=== PATIENT | male | born 1955 | race Caucasian/White ===

== ENCOUNTER 2016-06-07 08:02 | Observation (INO) | payer MEDICARE, OTHER ==
[2016-06-06] MEDS: CINACALCET 30 MG TAB PO SCH (22:31)
[~2016-06-07] VITALS: Ht 170.2 cm; Wt 74.7 kg
[~2016-06-07 08:02] MED LIST: AMLO5TAB4 PO; APR50 PO; ASPI81TA3 PO; ATOR80TA75 PO; BENA20TA65 PO; CALC667C PO; CNC30T PO; FAMO20TA18 PO; GENT5DRO28 LEFT EYE; METO-448 PO; PROM6.25 PO; SEVE800T10 PO; TYL500 PO; UDROBDM PO
[2016-06-07] MEDS ORDERED: ATOR20TA38 PO (10:45)
[2016-06-07] MEDS ORDERED: ZOLP5TAB6 PO (10:50)
[2016-06-07] MEDS ORDERED: NIFE60TA24 PO (10:51)
[2016-06-07 10:59] LABS: BASOPHILS % 0.1 % (0.0-2.0); EOSINOPHILS # 0.1 10^3/ul (0.0-0.5); EOSINOPHILS % 1.6 % (0.0-7.0); HEMATOCRIT 26.4 % (42.0-52.0); HEMOGLOBIN 8.7 g/dl (14.0-18.0); LYMPHOCYTES # 0.8 10^3/ul (0.8-2.9); LYMPHOCYTES % 16.9 % (15.0-51.0); MEAN CORPUSCULAR HEMOGLOBIN 28.1 pg (29.0-33.0); MEAN CORPUSCULAR HGB CONC 32.9 g/dl (32.0-37.0); MEAN CORPUSCULAR VOLUME 85.3 fl (82.0-101.0); MEAN PLATELET VOLUME 8.4 fl (7.4-10.4); MONOCYTE # 0.7 10^3/ul (0.3-0.9); MONOCYTES % 13.7 % (0.0-11.0); NEUTROPHIL # 3.2 10^3/ul (1.6-7.5); NEUTROPHILS % 67.7 % (39.0-77.0); PLATELET COUNT 218 10^3/UL (140-440); RED CELL DISTRIBUTION WIDTH 19.1 % (11.5-14.5); UNCORRECTED WBC 4.8 10^3/ul (4.8-10.8); WHITE BLOOD COUNT 4.8 10^3/ul (4.8-10.8)
[2016-06-07 11:02] LABS: ALBUMIN 4.2 g/dl (3.3-4.9)
[2016-06-07 11:04] LABS: CREATININE 8.26 mg/dl (0.61-1.24)
[2016-06-07 11:05] LABS: ALBUMIN/GLOBULIN RATIO 1.23; BILIRUBIN,INDIRECT 0.1 mg/dl (0-1.1); BILIRUBIN,TOTAL 0.1 mg/dl (0.2-1.3); TOTAL PROTEIN 7.6 g/dl (6.1-8.1)
[2016-06-07 11:08] LABS: CONDITION 1; INR 1.17; LH ANALYZER COMMENTS 1; PT RATIO 1.2
[2016-06-07 11:09] LABS: PARTIAL THROMBOPLASTIN TIME 28.1 Sec (25.0-35.0)
[2016-06-07 11:14] LABS: TROPONIN-I 0.075 ng/ml (0.00-0.12)
[2016-06-07 11:28] LABS: POTASSIUM 6.2 mmol/L (3.5-5.1)
[2016-06-07] MEDS ORDERED: CA GLUCONATE (GM) 10% 10ML INJ IV STA (11:32)
[2016-06-07] MEDS ORDERED: NA POLYST SULFON 15 GM/60 ML BTL PO STA (11:32)
[2016-06-07] MEDS ORDERED: NA BICARBONATE 8.4% 50 ML SYG IV STA (11:32)
--- NOTE | 2016-06-07 11:41 | ERA ---
ER Documentation Chief Complaint Date/Time DATE: 06/07/16 TIME: 11:[address] Chief Complaint [address]ENT BY DR NEWBY FOR BLOOD TRANSFUSION. LOW HEMOGLOBIN, NO BLEEDING NOTED. HPI This is a 60-year-old male who was sent in by his primary care physician, Dr. Newby for evaluation of low hemoglobin. This patient is a dialysis patient on dialysis Friday, Friday, Friday. He is not on a dialysis today. He did have lab work from his dialysis center which stated that he has a hemoglobin of 7.9. This patient was sent in for transfusion. ROS All systems reviewed and are negative except as per history of present illness. Medications Home Meds Active Scripts Sevelamer Hcl* (Renagel*) 800 Mg Tab, 800 MG PO WITH MEALS, #90 Prov:VIV KING 01/20/15 Reported Medications Nifedipine* (Afeditab CR*) 60 Mg Tablet.er, 60 MG PO DAILY, #30 TAB.SA 06/07/16 Zolpidem Tartrate* (Zolpidem Tartrate*) 5 Mg Tablet, 5 MG PO QHS Y for INSOMNIA , #30 TAB 06/07/16 Atorvastatin Calcium* (Atorvastatin Calcium*) 20 Mg Tablet, 20 MG PO QHS, #30 TAB 06/07/16 Calcium Acetate* (Calcium Acetate*) 667 Mg Capsule, 667 MG PO WITH MEALS, #30 CAP 03/12/16 Cinacalcet* (Sensipar*) 30 Mg Tab, 30 MG PO BID, TAB 03/12/16 Discontinued Reported Medications Metoprolol Tartrate* (Lopressor*) 25 Mg Tab, 25 MG PO BID, #60 TAB 04/26/16 Amlodipine Besylate* (Norvasc*) 5 Mg Tablet, 5 MG PO DAILY, TAB 04/26/16 Atorvastatin* (Atorvastatin*) 80 Mg Tablet, 80 MG PO QHS, #30 TAB 04/26/16 Famotidine* (Famotidine*) 20 Mg Tablet, 20 MG PO BID, #60 TAB 03/12/16 Discontinued Scripts Gentamicin Sulfate* (Gentamicin Sulfate* Ophth) 0.3% - 5 Ml Drops, 1 DROP LEFT EYE QID for 6 Days, EA Prov:VIV KING 03/13/16 Acetaminophen* (Tylenol*) 500 Mg Tab, 500 MG PO Q4H Y for MILD PAIN LEVEL 1-3, # 10 TAB Prov:PRATIK PANDA DO 11/06/15 Promethazine w/Codeine* (Phenergan w/Codeine* Syrup) 5 Ml Syrup, 5 ML PO Q4H Y for COUGH for 7 Days, ML Prov:ANTHONY ALBARRAN MD 05/22/15 Guaifenesin-Dextromethorphan* (Robitussin* DM) 100MG/10MG/5ML Syrup, 10 ML PO Q6H Y for COUGH for 7 Days, ML Prov:VIV KING 05/11/15 Hydralazine Hcl* (Hydralazine Hcl*) 50 Mg Tab, 75 MG PO TID for 30 Days, TAB Prov:VIV KING 05/11/15 Benazepril Hcl* (Lotensin*) 20 Mg Tab, 20 MG PO DAILY, #30 Prov:VIV KING 01/20/15 Aspirin (Aspirin) 81 Mg Chew, 81 MG PO DAILY, #30 Prov:CIARA KINGETLANA 01/20/15 Allergies Allergies: Coded Allergies: fluorescein (Verified Allergy, Unknown, 06/07/16) PMhx/Soc History of Surgery: No (AV fistula creation x 2, appendectomy) Anesthesia Reaction: No Hx Neurological Disorder: No Hx Respiratory Disorders: No Hx Cardiac Disorders: No Hx Psychiatric Problems: No Hx Miscellaneous Medical Probl: No Hx Alcohol Use: No Hx Substance Use: No Hx Tobacco Use: No Smoking Status: Never smoker Physical Exam Vitals Vital Signs Date Time Temp Pulse Resp B/P Pulse Ox O2 Delivery O2 Flow Rate FiO2 06/07/16 08:18 98.1 86 21 231/93 98 Physical Exam Const: No acute distress Head: Atraumatic Eyes: Normal Conjunctiva ENT: Normal External Ears, Nose and Mouth. Neck: Full range of motion..~ No meningismus. Resp: Clear to auscultation bilaterally Cardio: Regular rate and rhythm, no murmurs Abd: Soft, non tender, non distended. Normal bowel sounds Skin: Port-A-Cath left anterior chest wall, no petechiae or rashes Back: No midline or flank tenderness Ext: No cyanosis, or edema Neur: Awake and alert Psych: Normal Mood and Affect Result Diagram: 06/07/16 1039 06/07/16 1039 Results 24 hrs Laboratory Tests Test 06/07/16 10:39 Activated Partial Thromboplast Time 28.1Sec Alanine Aminotransferase (ALT/SGPT) 58IU/L Albumin 4.2g/dl Albumin/Globulin Ratio 1.23 Alkaline Phosphatase 180IU/L Anion Gap 26 Aspartate Amino Transf (AST/SGOT) 51IU/L Basophils # 0.010^3/ul Basophils % 0.1% Blood Morphology Comment Blood Urea Nitrogen 66mg/dl Calcium Level 9.0mg/dl Carbon Dioxide Level 27mmol/L Chloride Level 96mmol/L Creatinine 8.26mg/dl Direct Bilirubin 0.00mg/dl Eosinophils # 0.110^3/ul Eosinophils % 1.6% Globulin 3.40g/dl Glucose Level 77mg/dl Hematocrit 26.4% Hemoglobin 8.7g/dl INR International Normalized Ratio 1.17 Indirect Bilirubin 0.1mg/dl Lymphocytes # 0.810^3/ul Lymphocytes % 16.9% Mean Corpuscular Hemoglobin 28.1pg Mean Corpuscular Hemoglobin Concent 32.9g/dl Mean Corpuscular Volume 85.3fl Mean Platelet Volume 8.4fl Monocytes # 0.710^3/ul Monocytes % 13.7% Neutrophils # 3.210^3/ul Neutrophils % 67.7% Nucleated Red Blood Cells # 0.010^3/ul Nucleated Red Blood Cells % 0.0/100WBC Platelet Count 82416^3/UL Potassium Level 6.2mmol/L Prothrombin Time 15.0Sec Prothrombin Time Ratio 1.2 Red Blood Count 3.1010^6/ul Red Cell Distribution Width 19.1% Sodium Level 143mmol/L Total Bilirubin 0.1mg/dl Total Protein 7.6g/dl Troponin I 0.075ng/ml White Blood Count 4.810^3/ul Current Medications Medications (Trade) Dose Ordered Sig/Loy Route PRN Reason Start Time Stop Time Status Last Admin Dose Admin Sodium Polystyrene Sulfonate (Kayexalate) 30 gm ONCE STAT PO 06/07/16 11:32 06/07/16 11:34 DC Sodium Bicarbonate (Na Bicarb 8.4% Syg) 50 ml ONCE STAT IV 06/07/16 11:32 06/07/16 11:34 DC Calcium Gluconate (Ca Gluc) 1 gm ONCE STAT IV 06/07/16 11:32 06/07/16 11:34 DC Procedures/MDM EKG: Rate/Rhythm: [Normal Sinus Rhythm] QRS, ST, T-waves: [No changes consistent w/ acute ischemia] Impression: [No evidence of ischemia or arrhythmia] Chest X-ray 1V Interpreted by me: Soft Tissue: Pulmonary vascular congestion Bones: No acute abnormalities Mediastinum/Cardiac Silhouette/Lungs: [No acute abnormalities] This 60-year-old male presents to the ER for evaluation of low hemoglobin. I did obtain blood work here which shows a hemoglobin of 8.7. I have contacted his primary care physician, Dr. newby who would like this patient transfuse 1 unit of blood despite him having a hemoglobin of 8.7. I spoke to the patient and patient's family were okay with this. The patient has a potassium level 6.2. No EKG changes. The patient was given Kayexalate, calcium gluconate, and bicarbonate. He is not on dialysis today. He will be placed in for admission at this time. Critical Care: Excluding all billable procedures Time: [33] minutes Treatments/Evaluations: Close monitoring and treatment of unstable vital signs, cardiorespiratory, and neurologic status, while maintaining tight balance of fluid, respiratory, and cardiac interventions. Departure Diagnosis: Primary Impression: Normocytic anemia Additional Impressions: Renal failure Hyperkalemia Condition: Stable FROYLAN MILLS DO Jun 07, 2016 11:41
[2016-06-07] MEDS ORDERED: ONDANSETRON 4 MG INJ IV PRN (12:00)
[2016-06-07] MEDS ORDERED: ACETAMINOPHEN 325 MG TAB PO PRN ×2 (12:00→14:00)
--- NOTE | 2016-06-07 12:04 | RADRPT ---
PROCEDURE: XR Chest. CLINICAL INDICATION: Fluid overload TECHNIQUE: Chest AP portable. COMPARISON: 01/09/2016 FINDINGS: Left internal jugular tunnel dialysis catheter. The mediastinal structures are unremarkable. There is calcification of the thoracic aorta (consiste nt with atherosclerosis). There is moderate cardiac enlargement. There is congestive heart failure . There are RLL and LLL patchy consolidations (edema). The pleural spaces are unremarkable. The o sseous structures are unremarkable. IMPRESSION: Moderate cardiac enlargement. Congestive heart failure. RLL and LLL patchy consolidations (edema) RPTAT: HGDB .Eric Maciel MD, Date Time Electronically viewed and signed by .Eric Maciel MD, on 06/07/2016 12:03 .B/
[2016-06-07] MEDS ORDERED: hydrALAzine 20 MG INJ IV ONE (13:00)
[2016-06-07] MEDS ORDERED: DOCUSATE SODIUM 100 MG CAP PO PRN (14:00)
[2016-06-07] MEDS ORDERED: morphine 2 MG INJ IV PRN (14:00)
[2016-06-07] MEDS ORDERED: NACL 0.9% 3 ML SYG IV SCH (14:00)
--- NOTE | 2016-06-07 16:12 | HP ---
DATE OF ADMISSION: 06/07/2016 CHIEF COMPLAINT: Low hemoglobin. HISTORY OF PRESENT ILLNESS: The patient is a 60-year-old gentleman, known to me from previous admis mirza. The patient was sent by his permit specialist, Dr. Newby, due to a low hemoglobin of 7.9, noted at [facility]. The patient usually has dialysis on Friday, Friday, Friday. He did not have dialysis today. The patient denies any nausea or vomiting, denies any fever or chills, denies any chest pain, denies any shortness of breath. Patient is also noted to have hyperkalemia, with a pota ssium of 6.2, and was given Kayexalate in the emergency room. The patient underwent a chest x-ray which revealed moderate cardiac enlargement, congestive heart failure, right lower lobe and left low er lobe patchy consolidations. The patient will be admitted for hemodialysis and blood transfusion. PAST MEDICAL HISTORY: End-stage renal disease, hemodialysis dependent. Stage I diastolic dysfuncti on. Congestive heart failure. Anemia of chronic disease. Left eye blindness. Hypertension. PAST SURGICAL HISTORY: Status post left upper extremity arteriovenous fistula, more than 4 years ag o, currently is nonfunctional, status post new arteriovenous fistula in the left upper extremity. S tatus post left chest Espinoza catheter. FAMILY HISTORY: Noncontributory. SOCIAL HISTORY: The patient lives at home with his . The patient denies any alcohol use. Gadiel es any tobacco use. Denies any illicit drug use. Patient has a history of alcohol use in the past. ALLERGIES: PATIENT IS ALLERGIC TO FLUORESCEIN. HOME MEDICATIONS: 1. Atorvastatin. 2. Calcium acetate. 3. Sensipar. 4. Nifedipine. 5. Renagel. 6. Ambien. REVIEW OF SYSTEMS: A 12-point review of systems is negative unless mentioned in the HPI. PHYSICAL ASSESSMENT GENERAL: Well-developed, well-nourished male, in no acute distress. VITAL SIGNS: Temperature is 98.1, pulse is 86, blood pressure is 231/93, respiratory rate 21, oxyge n saturation is 98% on room air. HEENT: Head is atraumatic, normocephalic. Patient has left eye blindness. Oral mucosa is pink, mo ist. NECK: Supple. No cervical lymphadenopathy. JVD is present. No thyromegaly. CHEST: Lungs are clear bilaterally, slightly diminished at the bases. No wheezes or rales noted. CARDIOVASCULAR: Normal S1, S2. No murmurs, gallops, clicks or rubs noted. ABDOMEN: Protuberant, soft, nondistended, nontender. Bowel sounds present. EXTREMITIES: No edema, clubbing or cyanosis. The patient has a left upper extremity AV fistula whi ch is nonfunctional. Left upper extremity AV fistula with a palpable thrill and audible bruit. The patient also has a left internal jugular tunneled hemodialysis catheter. SKIN: There is no rash or petechiae. NEUROLOGIC: Patient is awake, alert and oriented x4. No focal deficits noted. Motor strength of 5 /5 in all extremities. LABORATORY DATA: On admission, CBC white blood cells 4.8, hemoglobin 8.7, hematocrit 26.4, platelet s 218. Chemistry: Sodium is 143, potassium 6.2, chloride 96, carbon dioxide 27, anion gap 26, BUN is 66, creatinine 8.26, glucose 77. Troponin 0.075. PT is 15.0, INR is 1.18, PTT is 28.1. ASSESSMENT AND PLAN: 1. Anemia, most likely of chronic disease. Will obtain stool for occult blood. Transfuse the karl ent 1 unit of packed red blood cells with hemodialysis. 2. End-stage renal disease, hemodialysis dependent. Dr. Newby will be following the patient in nephr ology consultation. The patient will undergo dialysis today. 3. Hyperkalemia. Status post Kayexalate. The patient will undergo hemodialysis. Continue to [facility] electrolytes. 4. Hypertensive urgency. Will resume the patient's home blood pressure medication. Start hydralaz ine p.r.n. for a systolic blood pressure above 170. Further recommendations based on clinical course. Plan of care discussed with Dr. French. Dictated By: VIV KING BENZENE WASHER for POLY FRENCH MD, SR/ZACK Conf#: [id number] DID#: [id number]
[2016-06-07] MEDS: CALCIUM ACETATE 667 MG CAP PO SCH (18:47)
[2016-06-07] MEDS: NIFEdipine (XL) 60 MG TAB PO SCH (18:48)
[2016-06-07] MEDS: SEVELAMER 800 MG TAB PO SCH (18:48)
[2016-06-07] MEDS: hydrALAzine 20 MG INJ IV PRN (19:28)
[2016-06-07 20:48] VITALS: TEMP 98.5
[2016-06-07 21:50] VITALS: PULSE 75
[2016-06-07] MEDS: ATORVASTATIN 20 MG TAB PO SCH (22:26)
[2016-06-07 22:50] VITALS: Ht 170.2 cm; Wt 74.7 kg
[2016-06-07 22:51] VITALS: BP 167/76; RESP 20
[2016-06-08] VITALS (18 sets, daily range): BP systolic 110–196; BP diastolic 37–84; PULSE 68–77; RESP 16–20
[2016-06-08] MEDS: ZOLPIDEM 5 MG TAB PO PRN ×2 (01:16→21:22)
[2016-06-08] MEDS: PANTOPRAZOLE (EC) 40 MG TAB PO SCH (05:38)
--- NOTE | 2016-06-08 07:43 | CONS ---
DATE OF ADMISSION: 06/07/2016 DATE OF CONSULTATION: HISTORY OF PRESENT ILLNESS: This is a 60-year-old unfortunate, , disabled, Latin man with a known history of diabetes mellitus, insulin-dependent , hypertension, chronic renal failure, on hemodialysis, and blindness. The patient has been closely followed at the dialysis center 3 times a week, where on Friday his hemoglobin was found to be 7. He was complaining of weakness. Denied any bleeding from any source. Please note that the patient has been on a clinical trial with Roxadustat medication, which is very effective in treatment of anemia and renal failure. Unfortunately, it is not clear whether the patient does not take it or whatever the reason is, his hemoglobin has been somewhat bothersome and remains low. It was determined that because of his symptoms, blindness and the need for ongoing dialysis, it is best that he be resuscitated with a blood transfusion. He was therefore admitted for further evaluation and treatment. Please refer to the hospital emergency records for further details. The patient has been maintained on multiple medications. Again, it is not clear if he takes them religiously, on the prescribed basis, especially since given his blood pressure has been high at times. MEDICATION: The list of medications include: 1. Renagel. 2. Nifedipine. 3. Ambien. 4. Atorvastatin. 5. Calcium acetate. 6. Cinacalcet. 7. Amlodipine. 8. Pepcid. 9. Phenergan with codeine. 10. Hydralazine. 11. Benazepril. 12. Aspirin. He has obviously not been a candidate for peritoneal dialysis because of his blindness. PAST MEDICAL HISTORY: The rest of the past history includes admissions here for cardiac, as well as other causes or reasons. His cardiac workup has been negative. He has also had AV fistula surgery done under the care of Dr. Fay, mostly at their office. REVIEW OF SYSTEMS: The rest of the system review is negative for any head, ears , nose, or throat problems. There is no episode of chest pain or shortness of breath. There is a history of acute abdominal pain and flank pain. The patient denies any bleeding from the rectum or any other source. He has no libido. No joint pain, seizures, syncope, or other metabolic problems. He does not drink or take any other drugs. FAMILY HISTORY: The rest of the family history and personal history is available in the old records. His was at the bedside and stated there are 2 children and their daughter lives with them. ALLERGIES: HE HAS NO KNOWN ALLERGIES. LABORATORY: Laboratory work done in the emergency room, hemoglobin strangely was 8.7, although he had 2 hemoglobins, of 7 and then in . Potassium is 6.2, BUN and creatinine are 66 and 8.26. PHYSICAL EXAMINATION GENERAL APPEARANCE: The patient is a pleasant man. VITAL SIGNS: Blood pressure is somewhat on the high side. HEENT: Head, eyes, ears, nose, and throat are unremarkable. As noted, the patient is blind. Conjunctivae are pale. Sclerae are anicteric. NOSE: Normal mucosa. THROAT: Tongue is pale. No pharyngeal congestion. NECK: Supple. No jugular venous distention, lymph node or thyroid enlargement. Trachea is midline. CHEST: Symmetrical. LUNGS: Clear. HEART: Regular rhythm. S1, S2 unremarkable. ABDOMEN: Flat, soft. No masses. GENITALIA: Not examined. EXTREMITIES: AV fistula is functioning in the left arm. SKIN: Pale. IMPRESSION: 1. History of diabetes mellitus, hypertension, end-stage kidney disease, on hemodialysis. 2. Anemia. May be multifactorial. 3. Poor psychosocial situation, contributing to above. 4. Blindness due to DM PLAN: This patient's anemia is somewhat bothersome. This hopefully is the last admission for resuscitation purposes. I have informed the nursing staff at the dialysis center, where instead of the patient taking the experimental medicine at home, he will be getting it in the dialysis center by the registered nurse. We will keep a count on the medications and monitor the hematocrit and clinical course closely. If the hematocrit has not improved despite these precautionary measures, we will have no choice but to take him off the study and use the regular Epogen as we do with the other patients. Dictated By: SHU ÁLVAREZ/ZACK Conf#: [id number] DID#: [id number] MTDD
--- NOTE | 2016-06-08 07:46 | CONS ---
Date/Time of Note Date/Time of Note DATE: 06/08/16 TIME: 07:45 Assessment/Plan Assessment/Plan Additional Assessment/Plan 1. Anemia, CKD 2. End-stage renal disease 3. Hyperkalemia. 4. Hypertension, Chronic. Clinically improved, BP Better controlled HD pending, UF as tolerated Repeat Chemistry in am Cont current Rx and plan. Consultation Date/Type/Reason Admit Date/Time Jun 07, 2016 at 11:36 Initial Consult Date Type of Consultation: Nephrology Reason for Consultation ESRD Referring Provider: POLY THRASHER MD 24 HR Interval Summary Free Text/Dictation Awaiting HD this am Constitutional: No requiring O2 Exam/Review of Systems Vital Signs Vitals Vital Signs Date Time Temp Pulse Resp B/P Pulse Ox O2 Delivery O2 Flow Rate FiO2 06/08/16 07:30 97.6 71 20 155/69 95 06/08/16 04:51 Room Air Intake and Output 06/07/16 06/07/16 06/08/16 15:00 23:00 07:00 Intake Total 500 ml Balance 500 ml Exam Constitutional: No distress ENMT: mucosa pink and moist Cardiovascular: regular rate and rhythm, No edema Gastrointestinal: non-tender, soft, No rebound or guarding Neurological: No lethargic Skin: No diaphoresis Results Result Diagram: 06/07/16 1039 06/07/16 1039 Results 24 hrs Laboratory Tests Test 06/07/16 10:39 Activated Partial Thromboplast Time 28.1 Alanine Aminotransferase (ALT/SGPT) 58 Albumin 4.2 Albumin/Globulin Ratio 1.23 Alkaline Phosphatase 180 H Anion Gap 26 H Aspartate Amino Transf (AST/SGOT) 51 H Basophils # 0.0 Basophils % 0.1 Blood Morphology Comment Blood Urea Nitrogen 66 H Calcium Level 9.0 Carbon Dioxide Level 27 Chloride Level 96 L Creatinine 8.26 H Direct Bilirubin 0.00 Eosinophils # 0.1 Eosinophils % 1.6 Globulin 3.40 H Glucose Level 77 Hematocrit 26.4 L Hemoglobin 8.7 L INR International Normalized Ratio 1.17 Indirect Bilirubin 0.1 Lymphocytes # 0.8 Lymphocytes % 16.9 Mean Corpuscular Hemoglobin 28.1 L Mean Corpuscular Hemoglobin Concent 32.9 Mean Corpuscular Volume 85.3 Mean Platelet Volume 8.4 Monocytes # 0.7 Monocytes % 13.7 H Neutrophils # 3.2 Neutrophils % 67.7 Nucleated Red Blood Cells # 0.0 Nucleated Red Blood Cells % 0.0 Platelet Count 218 Potassium Level 6.2 *H Prothrombin Time 15.0 H Prothrombin Time Ratio 1.2 Red Blood Count 3.10 L Red Cell Distribution Width 19.1 H Sodium Level 143 Total Bilirubin 0.1 L Total Protein 7.6 Troponin I 0.075 White Blood Count 4.8 Medications Medications Current Medications Atorvastatin Calcium (Lipitor) 20 mg QHS PO Last administered on 06/07/16 22:26 ; Admin Dose 20 MG; Start 06/07/16 at 21:00 Cinacalcet (Sensipar) 30 mg BID PO Last administered on 06/06/16 22:31; Admin Dose 30 MG; Start 06/07/16 at 21:00 Nifedipine (Procardia Xl) 60 mg DAILY PO Last administered on 06/07/16 18:48; Admin Dose 60 MG; Start 06/07/16 at 14:00 Zolpidem Tartrate (Ambien) 5 mg QHS PRN PO INSOMNIA Last administered on 01:16; Admin Dose 5 MG; Start 06/07/16 at 14:00 Hydralazine HCl (Apresoline) 10 mg Q4H PRN IV SBP>170 Last administered on 19:28; Admin Dose 10 MG; Start 06/07/16 at 14:00 Acetaminophen (Tylenol Tab) 650 mg Q6H PRN PO PAIN LEVEL 1-3 OR FEVER; Start at 14:00 Morphine Sulfate (morphine) 2 mg Q4H PRN IV PAIN LEVEL 7-10; Start 06/07/16 at 14:00 Docusate Sodium (Colace) 100 mg Q12H PRN PO CONSTIPATION; Start 06/07/16 at 14: 00 Pantoprazole (Protonix Tab) 40 mg DAILY@06 PO Last administered on 06/08/16 05: 38; Admin Dose 40 MG; Start 06/08/16 at 06:00 Influenza Virus Vaccine (Fluzone) 0.5 ml ONCE ONCE IM* ; Start 06/10/16 at 09:00 ; Stop 06/10/16 at 09:01 Procedures Procedures PROCEDURE: XR Chest. CLINICAL INDICATION: Fluid overload TECHNIQUE: Chest AP portable. COMPARISON: 01/09/2016 FINDINGS: Left internal jugular tunnel dialysis catheter. The mediastinal structures are unremarkable. There is calcification of the thoracic aorta (consistent with atherosclerosis). There is moderate cardiac enlargement. There is congestive heart failure. There are RLL and LLL patchy consolidations (edema). The pleural spaces are unremarkable. The osseous structures are unremarkable. IMPRESSION: Moderate cardiac enlargement. Congestive heart failure. RLL and LLL patchy consolidations (edema) RPTAT: HGDB .Eric Maciel MD, MD Date Time Electronically viewed and signed by .Eric Maciel MD, MD on 06/07/2016 12:03 PIPER FELIX MD Jun 08, 2016 07:46
[2016-06-08] MEDS: CINACALCET 30 MG TAB PO SCH ×2 (08:25→21:22)
[2016-06-08] MEDS: NIFEdipine (XL) 60 MG TAB PO SCH (08:25)
[2016-06-08] MEDS: SEVELAMER 800 MG TAB PO SCH ×3 (08:25→18:18)
[2016-06-08] MEDS: CALCIUM ACETATE 667 MG CAP PO SCH ×3 (08:25→18:18)
[2016-06-08 11:30] LABS: POTASSIUM 4.1 mmol/L (3.5-5.1)
[2016-06-08 11:33] LABS: CALCIUM 8.2 mg/dl (8.4-10.2); CREATININE 7.33 mg/dl (0.61-1.24)
[2016-06-08 11:38] LABS: HEMATOCRIT 25.1 % (42.0-52.0); HEMOGLOBIN 8.2 g/dl (14.0-18.0); MEAN CORPUSCULAR HEMOGLOBIN 28.2 pg (29.0-33.0); MEAN CORPUSCULAR HGB CONC 32.7 g/dl (32.0-37.0); MEAN CORPUSCULAR VOLUME 86.3 fl (82.0-101.0); MEAN PLATELET VOLUME 10.8 fl (7.4-10.4); PLATELET COUNT 183 10^3/UL (140-440); RED BLOOD COUNT 2.91 10^6/ul (4.70-6.10); RED CELL DISTRIBUTION WIDTH 17.6 % (11.5-14.5); WHITE BLOOD COUNT 4.7 10^3/ul (4.8-10.8)
[2016-06-08 11:39] LABS: BASOPHILS % 0.9 % (0.0-2.0); EOSINOPHILS # 0.1 10^3/ul (0.0-0.5); EOSINOPHILS % 1.9 % (0.0-7.0); LYMPHOCYTES # 0.6 10^3/ul (0.8-2.9); LYMPHOCYTES % 12.6 % (15.0-51.0); MONOCYTE # 0.7 10^3/ul (0.3-0.9); MONOCYTES % 15.4 % (0.0-11.0); NEUTROPHIL # 3.2 10^3/ul (1.6-7.5); NEUTROPHILS % 68.1 % (39.0-77.0); NUCLEATED RED BLOOD CELLS% 0.4 /100WBC (0.0-0.0)
--- NOTE | 2016-06-08 12:42 | PN ---
Date/Time of Note Date/Time of Note DATE: 06/08/16 TIME: 12:41 Assessment/Plan VTE Prophylaxis VTE Prophylaxis Intervention: other Lines/Catheters IV Catheter Type (from [facility]): [place] [facility] Urinary Cath still in place: No Assessment/Plan Chief Complaint/Hosp Course 1. Anemia, most likely of chronic disease. Will obtain stool for occult blood. Transfuse the patient 1 unit of packed red blood cells with hemodialysis. 2. End-stage renal disease, hemodialysis dependent. Dr. Newby will be following the patient in nephrology consultation. The patient will undergo dialysis today. 3. Hyperkalemia. Status post Kayexalate. The patient will undergo hemodialysis. Continue to monitor electrolytes. 4. Hypertensive urgency. Will resume the patient's home blood pressure medication. Start hydralazine p.r.n. for a systolic blood pressure above 170. Problems: Subjective 24 Hr Interval Summary Free Text/Dictation Patient having hemodialysis, has no complaints Exam/Review of Systems Vital Signs Vitals Vital Signs Date Time Temp Pulse Resp B/P Pulse Ox O2 Delivery O2 Flow Rate FiO2 06/08/16 12:06 75 06/08/16 11:00 20 163/80 96 06/08/16 07:30 97.6 06/08/16 04:51 Room Air Intake and Output 06/07/16 06/07/16 06/08/16 15:00 23:00 07:00 Intake Total 500 ml Balance 500 ml Exam Constitutional: well developed Head: atraumatic, normocephalic Neck: supple Respiratory: diminished breath sounds Cardiovascular: regular rate and rhythm Gastrointestinal: non-tender, soft Extremities: normal pulses Results Result Diagram: 06/08/16 1030 06/08/16 1030 Results 24 hrs Laboratory Tests Test 06/08/16 10:30 Anion Gap 21 H Basophils # Pending Basophils % Pending Blood Urea Nitrogen 61 H Calcium Level 8.2 L Carbon Dioxide Level 28 Chloride Level 98 Creatinine 7.33 H Eosinophils # Pending Eosinophils % Pending Glucose Level 117 # Hematocrit 25.1 L Hemoglobin 8.2 L Lymphocytes # Pending Lymphocytes % Pending Mean Corpuscular Hemoglobin 28.2 L Mean Corpuscular Hemoglobin Concent 32.7 Mean Corpuscular Volume 86.3 Mean Platelet Volume 10.8 #H Monocytes # Pending Monocytes % Pending Neutrophils # Pending Neutrophils % Pending Nucleated Red Blood Cells # Pending Nucleated Red Blood Cells % Pending Platelet Count 183 Potassium Level 4.1 # Red Blood Count 2.91 L Red Cell Distribution Width 17.6 H Sodium Level 143 White Blood Count 4.7 L Medications Medications Current Medications Atorvastatin Calcium (Lipitor) 20 mg QHS PO Last administered on 06/07/16 22:26 ; Admin Dose 20 MG; Start 06/07/16 at 21:00 Cinacalcet (Sensipar) 30 mg BID PO Last administered on 06/08/16 08:25; Admin Dose 30 MG; Start 06/07/16 at 21:00 Nifedipine (Procardia Xl) 60 mg DAILY PO Last administered on 06/07/16 18:48; Admin Dose 60 MG; Start 06/07/16 at 14:00 Zolpidem Tartrate (Ambien) 5 mg QHS PRN PO INSOMNIA Last administered on 01:16; Admin Dose 5 MG; Start 06/07/16 at 14:00 Hydralazine HCl (Apresoline) 10 mg Q4H PRN IV SBP>170 Last administered on 19:28; Admin Dose 10 MG; Start 06/07/16 at 14:00 Acetaminophen (Tylenol Tab) 650 mg Q6H PRN PO PAIN LEVEL 1-3 OR FEVER; Start at 14:00 Morphine Sulfate (morphine) 2 mg Q4H PRN IV PAIN LEVEL 7-10; Start 06/07/16 at 14:00 Docusate Sodium (Colace) 100 mg Q12H PRN PO CONSTIPATION; Start 06/07/16 at 14: 00 Pantoprazole (Protonix Tab) 40 mg DAILY@06 PO Last administered on 06/08/16 05: 38; Admin Dose 40 MG; Start 06/08/16 at 06:00 Influenza Virus Vaccine (Fluzone) 0.5 ml ONCE ONCE IM* ; Start 06/10/16 at 09:00 ; Stop 06/10/16 at 09:01 FELISA TRIMBLE Jun 08, 2016 12:42
[2016-06-08 12:58] LABS: ANISOCYTOSIS 1+; HYPOCHROMASIA 1+; PLATELET ESTIMATE PLT APPEAR ADEQUATE
[2016-06-08] MEDS: ATORVASTATIN 20 MG TAB PO SCH (21:22)
[2016-06-09] VITALS (8 sets, daily range): BP systolic 178–200; BP diastolic 75–85; PULSE 69–76; RESP 17–20
[2016-06-09] MEDS: hydrALAzine 20 MG INJ IV PRN ×2 (00:30→04:18)
[2016-06-09] MEDS: PANTOPRAZOLE (EC) 40 MG TAB PO SCH (05:54)
[2016-06-09] MEDS: CALCIUM ACETATE 667 MG CAP PO SCH ×2 (08:07→12:05)
[2016-06-09] MEDS: CINACALCET 30 MG TAB PO SCH (08:07)
[2016-06-09] MEDS: SEVELAMER 800 MG TAB PO SCH ×2 (08:07→12:05)
[2016-06-09] MEDS: NIFEdipine (XL) 60 MG TAB PO SCH (08:08)
--- NOTE | 2016-06-09 09:24 | CONS ---
Date/Time of Note Date/Time of Note DATE: 06/09/16 TIME: 09:22 Assessment/Plan Assessment/Plan Additional Assessment/Plan 1. Anemia, CKD 2. End-stage renal disease 3. Hyperkalemia. 4. Hypertension, Chronic. Hyperkalemia- Resolved S/p HD, No complication Pt is requesting DC home today DC planning as per Primary team Consultation Date/Type/Reason Admit Date/Time Jun 07, 2016 at 11:36 Type of Consultation: Nephrology Referring Provider: POLY THRASHER MD 24 HR Interval Summary Free Text/Dictation S/p HD yesterday Constitutional: No requiring O2 Exam/Review of Systems Vital Signs Vitals Vital Signs Date Time Temp Pulse Resp B/P Pulse Ox O2 Delivery O2 Flow Rate FiO2 06/09/16 08:11 75 06/09/16 07:59 99.0 20 193/82 96 06/09/16 04:57 Room Air Intake and Output 06/08/16 06/08/16 06/09/16 15:00 23:00 07:00 Intake Total 500 ml 400 ml 350 ml Output Total 3000 ml Balance -2500 ml 400 ml 350 ml Exam Constitutional: No distress ENMT: mucosa pink and moist Neck: No jvd Respiratory: No diminished breath sounds, No labored breathing Cardiovascular: regular rate and rhythm, No edema Gastrointestinal: non-tender, soft Neurological: No lethargic Results Result Diagram: 06/08/16 1030 06/08/16 1030 Results 24 hrs Laboratory Tests Test 06/08/16 10:30 Anion Gap 21 H Anisocytosis 1+ Basophils # 0.0 Basophils % 0.9 Blood Urea Nitrogen 61 H Calcium Level 8.2 L Carbon Dioxide Level 28 Chloride Level 98 Creatinine 7.33 H Differential Comment AUTO w/SCAN Eosinophils # 0.1 Eosinophils % 1.9 Glucose Level 117 # Hematocrit 25.1 L Hemoglobin 8.2 L Hypochromasia 1+ Lymphocytes # 0.6 L Lymphocytes % 12.6 L Mean Corpuscular Hemoglobin 28.2 L Mean Corpuscular Hemoglobin Concent 32.7 Mean Corpuscular Volume 86.3 Mean Platelet Volume 10.8 #H Monocytes # 0.7 Monocytes % 15.4 H Neutrophils # 3.2 Neutrophils % 68.1 Nucleated Red Blood Cells # 0.0 Nucleated Red Blood Cells % 0.4 H Platelet Count 183 Platelet Estimate PLT APPEAR ADEQUATE Potassium Level 4.1 # Red Blood Count 2.91 L Red Cell Distribution Width 17.6 H Sodium Level 143 White Blood Count 4.7 L Medications Medications Current Medications Atorvastatin Calcium (Lipitor) 20 mg QHS PO Last administered on 06/08/16 21:22 ; Admin Dose 20 MG; Start 06/07/16 at 21:00 Cinacalcet (Sensipar) 30 mg BID PO Last administered on 06/09/16 08:07; Admin Dose 30 MG; Start 06/07/16 at 21:00 Nifedipine (Procardia Xl) 60 mg DAILY PO Last administered on 06/09/16 08:08; Admin Dose 60 MG; Start 06/07/16 at 14:00 Zolpidem Tartrate (Ambien) 5 mg QHS PRN PO INSOMNIA Last administered on 21:22; Admin Dose 5 MG; Start 06/07/16 at 14:00 Hydralazine HCl (Apresoline) 10 mg Q4H PRN IV SBP>170 Last administered on 04:18; Admin Dose 10 MG; Start 06/07/16 at 14:00 Acetaminophen (Tylenol Tab) 650 mg Q6H PRN PO PAIN LEVEL 1-3 OR FEVER; Start at 14:00 Morphine Sulfate (morphine) 2 mg Q4H PRN IV PAIN LEVEL 7-10; Start 06/07/16 at 14:00 Docusate Sodium (Colace) 100 mg Q12H PRN PO CONSTIPATION; Start 06/07/16 at 14: 00 Pantoprazole (Protonix Tab) 40 mg DAILY@06 PO Last administered on 06/09/16 05: 54; Admin Dose 40 MG; Start 06/08/16 at 06:00 Influenza Virus Vaccine (Fluzone) 0.5 ml ONCE ONCE IM* ; Start 06/10/16 at 09:00 ; Stop 06/10/16 at 09:01 PIPER FELIX MD Jun 09, 2016 09:23
--- NOTE | 2016-06-09 11:53 | DS ---
Date/Time of Note Date/Time of Note DATE: 06/09/16 TIME: 11:52 Discharge Summary Admission/Discharge Info Admit Date/Time Jun 07, 2016 at 11:36 Discharge Date/Time 06/09/16 Final Diagnosis 1) renal failure 2) hypertensioin 3) hypercholesterolemia Patient Condition: Fair Hospital Course Patient comes in for ESRD. Patient underwent dialysis and given blood for anemia. Once felt to be stable, he will be discharged to have further hemodialysis as an outpatient. 1. Anemia, most likely of chronic disease. Will obtain stool for occult blood. Transfuse the patient 1 unit of packed red blood cells with hemodialysis. 2. End-stage renal disease, hemodialysis dependent. Dr. Newby will be following the patient in nephrology consultation. The patient will undergo dialysis today. 3. Hyperkalemia. Status post Kayexalate. The patient will undergo hemodialysis. Continue to monitor electrolytes. 4. Hypertensive urgency. Will resume the patient's home blood pressure medication. Start hydralazine p.r.n. for a systolic blood pressure above 170. Home Meds Active Scripts Sevelamer Hcl* (Renagel*) 800 Mg Tab, 800 MG PO WITH MEALS, #90 Prov:VIV KING 01/20/15 Reported Medications Nifedipine* (Afeditab CR*) 60 Mg Tablet.er, 60 MG PO DAILY, #30 TAB.SA 06/07/16 Zolpidem Tartrate* (Zolpidem Tartrate*) 5 Mg Tablet, 5 MG PO QHS Y for INSOMNIA , #30 TAB 06/07/16 Atorvastatin Calcium* (Atorvastatin Calcium*) 20 Mg Tablet, 20 MG PO QHS, #30 TAB 06/07/16 Calcium Acetate* (Calcium Acetate*) 667 Mg Capsule, 667 MG PO WITH MEALS, #30 CAP 03/12/16 Cinacalcet* (Sensipar*) 30 Mg Tab, 30 MG PO BID, TAB 03/12/16 Discontinued Reported Medications Metoprolol Tartrate* (Lopressor*) 25 Mg Tab, 25 MG PO BID, #60 TAB 04/26/16 Amlodipine Besylate* (Norvasc*) 5 Mg Tablet, 5 MG PO DAILY, TAB 04/26/16 Atorvastatin* (Atorvastatin*) 80 Mg Tablet, 80 MG PO QHS, #30 TAB 04/26/16 Famotidine* (Famotidine*) 20 Mg Tablet, 20 MG PO BID, #60 TAB 03/12/16 Discontinued Scripts Gentamicin Sulfate* (Gentamicin Sulfate* Ophth) 0.3% - 5 Ml Drops, 1 DROP LEFT EYE QID for 6 Days, EA Prov:VIV KING 03/13/16 Acetaminophen* (Tylenol*) 500 Mg Tab, 500 MG PO Q4H Y for MILD PAIN LEVEL 1-3, # 10 TAB Prov:PRATIK PANDA DO 11/06/15 Promethazine w/Codeine* (Phenergan w/Codeine* Syrup) 5 Ml Syrup, 5 ML PO Q4H Y for COUGH for 7 Days, ML Prov:ANTHONY ALBARRAN MD 05/22/15 Guaifenesin-Dextromethorphan* (Robitussin* DM) 100MG/10MG/5ML Syrup, 10 ML PO Q6H Y for COUGH for 7 Days, ML Prov:VIV KING 05/11/15 Hydralazine Hcl* (Hydralazine Hcl*) 50 Mg Tab, 75 MG PO TID for 30 Days, TAB Prov:VIV KING 05/11/15 Benazepril Hcl* (Lotensin*) 20 Mg Tab, 20 MG PO DAILY, #30 Prov:VIV KING 01/20/15 Aspirin (Aspirin) 81 Mg Chew, 81 MG PO DAILY, #30 Prov:VIV KING 01/20/15 FELISA TRIMBLE Jun 09, 2016 11:53
[2016-06-10] MEDS ORDERED: INFLUENZA VIRUS VACCINE 0.5 ML (DISPENSING) IM* ONE (09:00)
== END 2016-06-09 15:54 | disposition home or self-care (01) ==
LOC: E/R 08:02 → MS4 11:36 → INTOOBSV 11:36
PROVIDERS: ADMIT Internal Medicine Nephrology; ATTEND Internal Medicine Nephrology
DX: I12.0 Hypertensive chronic kidney disease with stage 5 chronic kidney disease or end stage renal disease (principal); N18.6 End stage renal disease; Z99.2 Dependence on renal dialysis; D63.1 Anemia in chronic kidney disease; E87.5 Hyperkalemia
CPT/HCPCS: 36415; 36430; 71010; 80048; 80053; 84484; 85025; 85610; 85730; 86850; 86900; 86901; 86920; 90935; 93005; 96374; 96375; 96376; 99291; G0378; J0360; J0610; P9016

== ENCOUNTER 2016-11-12 05:35 | Inpatient (IN) | payer MEDICARE, OTHER ==
[~2016-11-12] VITALS: Ht 170.2 cm; Wt 70.3 kg
[~2016-11-12 05:35] MED LIST changes: -AMLO5TAB4 PO; -APR50 PO; -ASPI81TA3 PO; +ATOR20TA38 PO; -ATOR80TA75 PO; -BENA20TA65 PO; -FAMO20TA18 PO; -GENT5DRO28 LEFT EYE; -METO-448 PO; +NIFE60TA24 PO; -PROM6.25 PO; -TYL500 PO; -UDROBDM PO; +ZOLP5TAB7 PO
[2016-11-12] MEDS ORDERED: VANCOMYCIN 1 GM (PMX) 250 ML IVPB STA (06:39)
[2016-11-12] MEDS ORDERED: SODIUM CHLORIDE 0.9% 1L BAG IV* STA (06:39)
[2016-11-12] MEDS ORDERED: PIPER-TAZO 3.375 GM IV (PMX) 100 ML IVPB STA (06:39)
[2016-11-12 07:13] LABS: ADD SCAN DIFF NO
[2016-11-12 07:16] LABS: ABNORMAL IP MESSAGE 1; BASOPHILS % 0.6 % (0.0-2.0); EOSINOPHILS # 0.1 10^3/ul (0.0-0.5); EOSINOPHILS % 2.2 % (0.0-7.0); HEMATOCRIT 31.4 % (42.0-52.0); HEMOGLOBIN 10.3 g/dl (14.0-18.0); LYMPHOCYTES # 0.5 10^3/ul (0.8-2.9); LYMPHOCYTES % 10.3 % (15.0-51.0); MEAN CORPUSCULAR HEMOGLOBIN 29.3 pg (29.0-33.0); MEAN CORPUSCULAR HGB CONC 32.8 g/dl (32.0-37.0); MEAN CORPUSCULAR VOLUME 89.5 fl (82.0-101.0); MEAN PLATELET VOLUME 9.6 fl (7.4-10.4); MONOCYTE # 0.7 10^3/ul (0.3-0.9); MONOCYTES % 15.7 % (0.0-11.0); NEUTROPHIL # 3.3 10^3/ul (1.6-7.5); PLATELET COUNT 151 10^3/UL (140-415); RED BLOOD COUNT 3.51 10^6/ul (4.70-6.10); RED CELL DISTRIBUTION WIDTH 16.9 % (11.5-14.5); WHITE BLOOD COUNT 4.6 10^3/ul (4.8-10.8)
--- NOTE | 2016-11-12 07:17 | RADRPT ---
PROCEDURE: XR Foot. CLINICAL INDICATION: Sepsis TECHNIQUE: Three views of the left foot are available for review. COMPARISON: None available FINDINGS: The osseous structures are demineralized. There is no definite cortical destruction or soft tissue gas to suggest osteomyelitis. Mild degenerative changes are seen at the midfoot. Hammertoe deformi ties are noted at the lesser metatarsals. Enthesopathic changes are present at the Achilles inserti on. There is extensive atherosclerotic vascular calcifications throughout the dorsal and plantar ar terial branches. IMPRESSION: 1. Decreased bone mineral density without definite acute osseous abnormality or cortical destructio n. Please note that MRI is more sensitive in evaluating for early changes of osteomyelitis. 2. Extensive atherosclerotic vascular calcifications. RPTAT: PP .Franklin Gonzalez MD, Date Time Electronically viewed and signed by .Franklin Gonzalez MD, on 11/12/2016 07:17 .d/
--- NOTE | 2016-11-12 07:19 | RADRPT ---
PROCEDURE: XR Chest. CLINICAL INDICATION: Sepsis TECHNIQUE: Single frontal chest x-ray. COMPARISON: 06/07/2016 FINDINGS: MVA dialysis catheter has been removed. The cardiac silhouette is enlarged. There is mild pulmonary vascular ingestion and interstitial pro minence throughout the lungs slightly more pronounced in the right lower lung. No evidence for pleu ral effusion or pneumothorax. The aortic arch is calcified. Mild degenerative changes seen at the shoulders. IMPRESSION: 1. Mild congestive heart failure/fluid overload. 2. Patchy opacification in the right lower lung, which could represent a superimposed infiltrate. 3. Removal of the dialysis catheter. RPTAT: PP .Franklin Gonzalez MD, MD Date Time Electronically viewed and signed by .Franklin Gonzalez MD, on 11/12/2016 07:18 .d/
[2016-11-12] MEDS ORDERED: ONDANSETRON 4 MG INJ IV PRN (07:30)
[2016-11-12] MEDS ORDERED: ACETAMINOPHEN 325 MG TAB PO PRN ×2 (07:30→14:00)
[2016-11-12 07:38] LABS: ALBUMIN 4.8 g/dl (3.3-4.9); ALBUMIN/GLOBULIN RATIO 1.54; BILIRUBIN,INDIRECT 0.6 mg/dl (0-1.1); BILIRUBIN,TOTAL 0.6 mg/dl (0.2-1.3); CALCIUM 9.6 mg/dl (8.4-10.2); CREATININE 6.4 mg/dl (0.61-1.24); POTASSIUM 4.6 mmol/L (3.5-5.1); TOTAL PROTEIN 7.9 g/dl (6.1-8.1)
[2016-11-12 07:40] LABS: INR 1.2; PROTIME 15.3 Sec (12.2-14.2); PT RATIO 1.2
[2016-11-12 07:41] LABS: PARTIAL THROMBOPLASTIN TIME 30.3 Sec (25.0-35.0)
[2016-11-12 07:52] LABS: TROPONIN-I 0.411 ng/ml (0.00-0.12)
[2016-11-12] MEDS ORDERED: ASPIRIN 81 MG TAB PO ONE (08:00)
--- NOTE | 2016-11-12 08:06 | ERA ---
ER Documentation Chief Complaint Date/Time DATE: 11/12/16 TIME: 08:05 Chief Complaint left leg pain and discoloration x 2 weeks. Hx DM, HD (MWF), HTN HPI Patient is a 61-year-old male with dialysis, diabetes, coronary disease, and peripheral vascular disease who presents with left foot redness and pain. The patient has 1/5 toe which is black. The pain radiates up his left foot and left leg. He had dialysis yesterday as he gets dialysis Friday, Friday, and Friday. He has no fevers. He has had 4 days of symptoms and the pain is getting worse. He has had no treatment as of yet. Upon review of old medical records the patient has multiple visits to the ER since 2011. ROS All systems reviewed and are negative except as per history of present illness. Medications Home Meds Active Scripts Sevelamer Hcl* (Renagel*) 800 Mg Tab, 800 MG PO WITH MEALS, #90 Prov:VIV KING 01/20/15 Reported Medications Nifedipine* (Afeditab CR*) 60 Mg Tablet.er, 60 MG PO DAILY, #30 TAB.SA 06/07/16 Zolpidem Tartrate* (Zolpidem Tartrate*) 5 Mg Tablet, 5 MG PO QHS Y for INSOMNIA , #30 TAB 06/07/16 Atorvastatin Calcium* (Atorvastatin Calcium*) 20 Mg Tablet, 20 MG PO QHS, #30 TAB 06/07/16 Calcium Acetate* (Calcium Acetate*) 667 Mg Capsule, 667 MG PO WITH MEALS, #30 CAP 03/12/16 Cinacalcet* (Sensipar*) 30 Mg Tab, 30 MG PO BID, TAB 03/12/16 Allergies Allergies: Coded Allergies: fluorescein (Verified Allergy, Unknown, 06/07/16) PMhx/Soc History of Surgery: Yes (appendectomy) Anesthesia Reaction: No Hx Neurological Disorder: No Hx Respiratory Disorders: Yes (cough) Hx Cardiac Disorders: No Hx Psychiatric Problems: No Hx Miscellaneous Medical Probl: Yes (HYpertension Diabetes) Hx Alcohol Use: Yes Hx Substance Use: No Hx Tobacco Use: No Smoking Status: Former smoker FmHx Family History: No diabetes Physical Exam Vitals Vital Signs Date Time Temp Pulse Resp B/P Pulse Ox O2 Delivery O2 Flow Rate FiO2 11/12/16 07:41 75 20 181/83 93 Room Air 11/12/16 05:42 98.5 76 18 195/84 96 Physical Exam Const: Moderate distress secondary to pain Head: Atraumatic Eyes: Normal Conjunctiva ENT: Normal External Ears, Nose and Mouth. Neck: Full range of motion..~ No meningismus. Resp: Clear to auscultation bilaterally Cardio: Regular rate and rhythm, no murmurs Abd: Soft, non tender, non distended. Normal bowel sounds Skin: Gangrene with black left fifth toe, erythema to toes 1 through 4 with streaking up the left foot Back: No midline or flank tenderness Ext: Cool left foot compared to the right, pulses not palpated on the left foot Neur: Awake and alert, patient is blind Psych: Normal Mood and Affect Result Diagram: 11/12/1650 11/12/16 0650 Results 24 hrs Laboratory Tests Test 11/12/16 06:50 White Blood Count 4.610^3/ul Red Blood Count 3.5110^6/ul Hemoglobin 10.3g/dl Hematocrit 31.4% Mean Corpuscular Volume 89.5fl Mean Corpuscular Hemoglobin 29.3pg Mean Corpuscular Hemoglobin Concent 32.8g/dl Red Cell Distribution Width 16.9% Platelet Count 65376^3/UL Mean Platelet Volume 9.6fl Neutrophils % 71.0% Lymphocytes % 10.3% Monocytes % 15.7% Eosinophils % 2.2% Basophils % 0.6% Nucleated Red Blood Cells % 0.0/100WBC Neutrophils # 3.310^3/ul Lymphocytes # 0.510^3/ul Monocytes # 0.710^3/ul Eosinophils # 0.110^3/ul Basophils # 0.010^3/ul Nucleated Red Blood Cells # 0.010^3/ul Prothrombin Time 15.3Sec Prothrombin Time Ratio 1.2 INR International Normalized Ratio 1.20 Activated Partial Thromboplast Time 30.3Sec Sodium Level 132mmol/L Potassium Level 4.6mmol/L Chloride Level 92mmol/L Carbon Dioxide Level 31mmol/L Anion Gap 14 Blood Urea Nitrogen 50mg/dl Creatinine 6.40mg/dl Glucose Level 86mg/dl Lactic Acid Level 0.8mmol/L Calcium Level 9.6mg/dl Total Bilirubin 0.6mg/dl Direct Bilirubin 0.00mg/dl Indirect Bilirubin 0.6mg/dl Aspartate Amino Transf (AST/SGOT) 27IU/L Alanine Aminotransferase (ALT/SGPT) 27IU/L Alkaline Phosphatase 163IU/L Troponin I 0.411ng/ml Total Protein 7.9g/dl Albumin 4.8g/dl Globulin 3.10g/dl Albumin/Globulin Ratio 1.54 Current Medications Medications (Trade) Dose Ordered Sig/Loy Route PRN Reason Start Time Stop Time Status Last Admin Dose Admin Sodium Chloride 2170 ml 2,170 ml BOLUS OVER 2 HOURS STAT IV* 11/12/16 06:39 11/12/16 08:15 DC 11/12/16 08:08 Vancomycin HCl 250 ml @ 125 mls/hr ONCE STAT IVPB 11/12/16 06:39 11/12/16 08:38 Piperacillin Sod/ Tazobactam Sod (Zosyn 3.375gm/ 100 ml (Pmx)) 100 ml @ 200 mls/hr ONCE STAT IVPB 11/12/16 06:39 11/12/16 07:08 DC 11/12/16 08:05 Ondansetron HCl (Zofran Inj) 4 mg BRIDGE ORDER PRN IV NAUSEA AND/OR VOMITING 11/12/16 07:30 11/13/16 07:29 Acetaminophen (Tylenol Tab) 650 mg ER BRIDGE PRN PO MILD PAIN/FEVER 11/12/16 07:30 11/13/16 07:29 Aspirin 162 mg 162 mg ONCE ONCE PO 11/12/16 08:00 11/12/16 08:01 DC Sodium Chloride (NS) 1,000 ml @ 1,000 mls/hr Q1H STAT IV 11/12/16 08:14 11/12/16 09:13 Procedures/MDM X-ray Foot 3V Interpreted by me: Bones: No obvious osteomyelitis or fracture, there are hardening of the DP and PT arteries Joints: No dislocation Foreign body: None PROCEDURE: XR Chest. CLINICAL INDICATION: Sepsis TECHNIQUE: Single frontal chest x-ray. COMPARISON: 06/07/2016 FINDINGS: MVA dialysis catheter has been removed. The cardiac silhouette is enlarged. There is mild pulmonary vascular ingestion and interstitial prominence throughout the lungs slightly more pronounced in the right lower lung. No evidence for pleural effusion or pneumothorax. The aortic arch is calcified. Mild degenerative changes seen at the shoulders. IMPRESSION: 1. Mild congestive heart failure/fluid overload. 2. Patchy opacification in the right lower lung, which could represent a superimposed infiltrate. 3. Removal of the dialysis catheter. RPTAT: PP .Franklin Gonzalez MD, MD Date Time Electronically viewed and signed by .Franklin Gonzalez MD, MD on 11/12/2016 07:18 EKG read by me: Rate/Rhythm: Atrial paced rhythm at a rate of 75 Intervals: Normal Impression: Atrial pacing without signs of ischemia Ultrasound of the left lower extremity is pending at this time. Patient is a 61-year-old male who presents with acute gangrene and cellulitis of the left foot. I am concerned about gangrene and cellulitis and the patient may require amputation. I will give broad-spectrum antibiotics with vancomycin and Zosyn. At this point I doubt true sepsis. The patient has a normal lactic acid. He does have a positive troponin but also has renal failure. His EKG shows no signs of ischemia at this time and I doubt STEMI. I believe the patient has an NSTEMI. The patient says that his primary doctor is Dr. French and therefore I will admit the patient to Dr. French. He will need dialysis while he is in the hospital. He did receive dialysis yesterday however and his potassium is normal. His chest x-ray shows a possible pneumonia but there is no clinical signs of pneumonia. He was given aspirin for the positive troponin. I believe the benefits of aspirin given the positive troponin outweighs the risks of aspirin with possible amputation needed. He will need to be medically cleared prior to surgery anyway. Critical Care: Time: 35 minutes excluding all billable procedures. Treatments/Evaluations: Close monitoring and treatment of unstable vital signs, cardiorespiratory, and neurologic status, while maintaining tight balance of fluid, respiratory, and cardiac interventions. Departure Diagnosis: Primary Impression: NSTEMI (non-ST elevated myocardial infarction) Additional Impressions: Cellulitis Qualified Code: L03.116 - Cellulitis of left lower extremity Gangrene Anemia Qualified Code: D64.9 - Anemia, unspecified type Condition: Serious SAADIA CASTANEDA MD Nov 12, 2016 08:06
[2016-11-12] MEDS ORDERED: SOD CHLORIDE 0.9% 1,000 ML IV STA (08:14)
[2016-11-12] MEDS ORDERED: AMLO5TAB4 PO (09:04)
[2016-11-12] MEDS ORDERED: AMIO200T2 PO (09:04)
[2016-11-12] MEDS ORDERED: LOSA25TA5 PO (09:05)
[2016-11-12] MEDS ORDERED: METO25TA7 PO (09:05)
--- NOTE | 2016-11-12 09:05 | RADRPT ---
PROCEDURE: Arterial ultrasound of the bilateral lower extremities. CLINICAL INDICATION: Bilateral lower extremity pain; peripheral vascular disease, unspecified, left foot gangrene TECHNIQUE: Corona scale, color doppler, and spectral doppler ultrasound images of the arterial syste m of the bilateral lower extremities. COMPARISON: No prior studies are available for comparison. FINDINGS: Location Right CFA80 cm/sec PSFA75 cm/sec MSFA97 cm/sec DSFA97 cm/sec FGQ749 cm/sec PTA78 cm/sec DPA62 cm/sec Location Left CFA97 cm/sec PSFA65 cm/sec MSFA84 cm/sec DSFA47 cm/sec VVC073 cm/sec WDS285 cm/sec DPA21 cm/sec Plaque burden: Greater than 50% stenosis is present at the level of the right popliteal artery. Mod erately attenuated waveforms within the right posterior tibial artery and right dorsalis pedis arter y with diffuse mild - moderate plaque. Severe diffuse plaque produces waveform attenuation involving the distal left superficial femoral ar sarah. Greater than 90% stenosis is present at the level of the left popliteal artery. Attenuated wa veforms within the left posterior tibial artery and left dorsalis pedis artery. IMPRESSION: Greater than 50% stenosis is present at the level of the right popliteal artery. Moderately attenuated waveforms within the right posterior tibial artery and right dorsalis pedis ar sarah with diffuse mild - moderate plaque. Severe diffuse plaque produces waveform attenuation involving the distal left superficial femoral ar sarah. Greater than 90% stenosis is present at the level of the left popliteal artery. Severely attenuated waveforms within the left posterior tibial artery and left dorsalis pedis artery . RPTAT: AADD .George Hayes MD, Date Time Electronically viewed and signed by .George Hayes MD, on 11/12/2016 09:05 .B/
[2016-11-12 10:37] VITALS: Ht 170.2 cm; Wt 70.3 kg
[2016-11-12 10:50] VITALS: BP 175/83; PULSE 75; RESP 19
--- NOTE | 2016-11-12 11:27 | HP ---
Date/Time of Note Date/Time of Note DATE: 11/12/16 TIME: 11:08 Assessment/Plan VTE Prophylaxis VTE Prophylaxis Intervention: SCD's Lines/Catheters IV [facility]ter [facility]from [facility] Saline Lock Urinary Cath still in place: No Assessment/Plan Assessment/Plan -NSTEMI, is asked to see patient in cardiology consultation. -Hypertension, continue patient's home blood pressure medication, hydralazine as needed for systolic blood pressure above 170. -Left fifth toe gangrene with cellulitis, continue antibiotics Dr. Tobias is asked to see patient in infection disease consultation is asked to see patient in podiatry consultation -Peripheral vascular disease, Dr. Zaragoza is asked to see patient in vascular surgery consultation. -End-stage renal disease, continue hemodialysis per nephrology Dr. Newby is following in nephrology consultation. Further recommendations based on clinical course. End of care discussed with Dr. French. HPI/ROS Admit Date/Time Admit Date/Time Nov 12, 2016 at 07:20 Hx of Present Illness The patient is 61-year-old gentleman with past medical history including end- stage renal disease on hemodialysis patient had his last dialysis yesterday, diabetes mellitus hypertension, coronary artery disease, peripheral vascular disease, blind. Patient presented into to the emergency room with complaints of left fifth toe necrosis and significant pain. The pain gait gets significantly worse over the last couple of days. Patient denies any chest pain denies any shortness of breath denies any nausea vomiting diarrhea. On evaluation in the emergency room patient noted to have elevated troponin of 0.4 , twelve-lead EKG was no ST segment elevation. Chest x-ray revealed CHF and opacification of the right lower lung . Patient was diagnosed with left fifth toe cellulitis and was started on broad-spectrum antibiotics. Patient will be admitted for further evaluation and management. ROS 12 point review of system is negative except what mentioned in HPI. PMH/Family/Social Past Medical History Medical History: coronary artery disease, diabetes, hypertension, renal disease Past Surgical History Past Surgical Hx: appendectomy Family History Significant Family History: no pertinent family hx Social History Alcohol Use: none Smoking Status: Former smoker Drug Use: none Exam/Review of Systems Vital Signs Vitals Vital Signs Date Time Temp Pulse Resp B/P Pulse Ox O2 Delivery O2 Flow Rate FiO2 11/12/16 10:50 98.1 75 19 175/83 98 Room Air Exam Constitutional: alert, oriented Psych: no complaints Head: atraumatic, normocephalic Eyes: other (Blind) Neck: supple Respiratory: normal air movement Cardiovascular: nl pulses Gastrointestinal: non-tender Extremities: normal pulses Neurological: nl mental status Skin: nl turgor, other (Left fifth toe necrotic, erythema extending from toes to foot, tenderness) Labs Result Diagram: 11/12/16 0650 11/12/16 0650 VIV KING Nov 12, 2016 11:18
[2016-11-12] MEDS ORDERED: METOPROLOL (XL) 25 MG TAB PO SCH (11:30)
[2016-11-12] MEDS: SEVELAMER 800 MG TAB PO SCH ×2 (12:29→17:22)
[2016-11-12] MEDS: NIFEdipine (XL) 60 MG TAB PO SCH (12:30)
[2016-11-12] MEDS: AMLODIPINE 5 MG TAB PO SCH ×2 (12:30→21:00)
[2016-11-12] MEDS: LOSARTAN 25 MG TAB PO SCH (12:31)
--- NOTE | 2016-11-12 15:11 | CONS ---
Date/Time of Note Date/Time of Note DATE: 11/12/16 TIME: 15:09 Assessment/Plan Assessment/Plan Chief Complaint/Hosp Course ID note dictated Problems: Consultation Date/Type/Reason Admit Date/Time Nov 12, 2016 at 07:20 Type of Consultation: ID Psychological: no complaints Past Medical History Medical History: coronary artery disease, diabetes, hypertension, renal disease Past Surgical History Past Surgical Hx: appendectomy Social History Alcohol Use: none Smoking Status: Former smoker Drug Use: none Exam/Review of Systems Vital Signs Vitals Vital Signs Date Time Temp Pulse Resp B/P Pulse Ox O2 Delivery O2 Flow Rate FiO2 11/12/16 10:50 98.1 75 19 175/83 98 Room Air Results Result Diagram: 11/12/16 0650 11/12/16 0650 Results 24 hrs Laboratory Tests Test 11/12/16 06:50 11/12/16 12:20 White Blood Count 4.6 L Red Blood Count 3.51 #L Hemoglobin 10.3 #L Hematocrit 31.4 #L Mean Corpuscular Volume 89.5 Mean Corpuscular Hemoglobin 29.3 Mean Corpuscular Hemoglobin Concent 32.8 Red Cell Distribution Width 16.9 H Platelet Count 151 Mean Platelet Volume 9.6 Neutrophils % 71.0 Lymphocytes % 10.3 L Monocytes % 15.7 H Eosinophils % 2.2 Basophils % 0.6 Nucleated Red Blood Cells % 0.0 Neutrophils # 3.3 Lymphocytes # 0.5 L Monocytes # 0.7 Eosinophils # 0.1 Basophils # 0.0 Nucleated Red Blood Cells # 0.0 Prothrombin Time 15.3 H Prothrombin Time Ratio 1.2 INR International Normalized Ratio 1.20 Activated Partial Thromboplast Time 30.3 Sodium Level 132 L Potassium Level 4.6 Chloride Level 92 L Carbon Dioxide Level 31 Anion Gap 14 Blood Urea Nitrogen 50 H Creatinine 6.40 H Glucose Level 86 Hemoglobin A1c 6.2 H Lactic Acid Level 0.8 0.7 Calcium Level 9.6 Total Bilirubin 0.6 Direct Bilirubin 0.00 Indirect Bilirubin 0.6 Aspartate Amino Transf (AST/SGOT) 27 Alanine Aminotransferase (ALT/SGPT) 27 Alkaline Phosphatase 163 H Troponin I 0.411 *H Total Protein 7.9 Albumin 4.8 Globulin 3.10 Albumin/Globulin Ratio 1.54 Medications Medications Current Medications Amlodipine Besylate (Norvasc) 5 mg BID PO Last administered on 11/12/16 12:30 ; Admin Dose 5 MG; Start 11/12/16 at 11:30 Atorvastatin Calcium (Lipitor) 20 mg QHS PO ; Start 11/12/16 at 21:00 Losartan Potassium (Cozaar) 25 mg DAILY PO Last administered on 11/12/16 12:31 ; Admin Dose 25 MG; Start 11/12/16 at 11:30 Metoprolol Succinate (Toprol Xl) 25 mg DAILY PO Last administered on 11/12/16 12:30; Admin Dose 25 MG; Start 11/12/16 at 11:30 Nifedipine (Procardia Xl) 60 mg DAILY PO Last administered on 11/12/16 12:30; Admin Dose 60 MG; Start 11/12/16 at 11:30 Zolpidem Tartrate (Ambien) 5 mg QHS PRN PO INSOMNIA; Start 11/12/16 at 11:30 Hydralazine HCl (Apresoline) 10 mg Q6H PRN IV SBP>170; Start 11/12/16 at 11:30 Bacitracin/ Polymyxin B Sulfate (Ak-Poly-Loren Oph Oint) 1 applic TID LEFT EYE ; Start 11/12/16 at 13:00 Morphine Sulfate (morphine) 2 mg Q4H PRN IV PAIN LEVEL 6-10; Start 11/12/16 at 14:00 Acetaminophen (Tylenol Tab) 650 mg Q4H PRN PO PAIN AND OR ELEVATED TEMP; Start 11/12/16 at 14:00 VANDA GARNER MD Nov 12, 2016 15:11
[2016-11-12] MEDS: BACITRACIN/POLYMYX 3.5 GM OPH OINT LEFT EYE SCH ×2 (15:17→21:02)
[2016-11-12 15:37] LABS: CK-MB 1.77 ng/ml (0.0-2.4); TROPONIN-I 0.312 ng/ml (0.00-0.12)
[2016-11-12 15:42] VITALS: BP 118/59; RESP 22
--- NOTE | 2016-11-12 17:24 | CONS ---
Date/Time of Note Date/Time of Note DATE: 11/12/16 TIME: 17:20 Assessment/Plan Assessment/Plan Chief Complaint/Hosp Course The pt is well known to me Patient is a 61-year-old male with dialysis, diabetes, coronary disease, and peripheral vascular disease who presents with left foot redness and pain. The patient has 1/5 toe which is black. The pain radiates up his left foot and left leg. He had dialysis yesterday as he gets dialysis Friday, Friday, and Friday. He has no fevers. He has had 4 days of symptoms and the pain is getting worse. He has had no treatment as of yet. Upon review of old medical records the patient has multiple visits to the ER since 2011. The foot is warm. The Arterial ultrasound shows left pop stenosis. The pt has positive trops too. The pt will need an angiogram and a possilbe stent in the coronary In the mean time, a LE angio and SALES [employer]IN[employer] in order to supply the foot with ample blood, then and an amputation of the toe. Problems: Additional Assessment/Plan see above Consultation Date/Type/Reason Admit Date/Time Nov 12, 2016 at 07:20 Hx of Present Illness The pt is well known to me Patient is a 61-year-old male with dialysis, diabetes, coronary disease, and peripheral vascular disease who presents with left foot redness and pain. The patient has 1/5 toe which is black. The pain radiates up his left foot and left leg. He had dialysis yesterday as he gets dialysis Friday, Friday, and Friday. He has no fevers. He has had 4 days of symptoms and the pain is getting worse. He has had no treatment as of yet. Upon review of old medical records the patient has multiple visits to the ER since 2011. The foot is warm. The Arterial ultrasound shows left pop stenosis. The pt has positive trops too. The pt will need an angiogram and a possilbe stent in the coronary In the mean time, a LE angio and SALES PROMOTION COORDINATOR in order to supply the foot with ample blood, then and an amputation of the toe. Psychological: no complaints Past Medical History Medical History: coronary artery disease, diabetes, hypertension, renal disease Past Surgical History Past Surgical Hx: appendectomy Social History Alcohol Use: none Smoking Status: Former smoker Drug Use: none Exam/Review of Systems Vital Signs Vitals Vital Signs Date Time Temp Pulse Resp B/P Pulse Ox O2 Delivery O2 Flow Rate FiO2 11/12/16 15:42 97.9 76 22 118/59 93 11/12/16 10:50 Room Air Results Result Diagram: 11/12/16 0650 11/12/16 0650 Results 24 hrs Laboratory Tests Test 11/12/16 06:50 11/12/16 12:20 11/12/16 14:45 White Blood Count 4.6 L Red Blood Count 3.51 #L Hemoglobin 10.3 #L Hematocrit 31.4 #L Mean Corpuscular Volume 89.5 Mean Corpuscular Hemoglobin 29.3 Mean Corpuscular Hemoglobin Concent 32.8 Red Cell Distribution Width 16.9 H Platelet Count 151 Mean Platelet Volume 9.6 Neutrophils % 71.0 Lymphocytes % 10.3 L Monocytes % 15.7 H Eosinophils % 2.2 Basophils % 0.6 Nucleated Red Blood Cells % 0.0 Neutrophils # 3.3 Lymphocytes # 0.5 L Monocytes # 0.7 Eosinophils # 0.1 Basophils # 0.0 Nucleated Red Blood Cells # 0.0 Prothrombin Time 15.3 H Prothrombin Time Ratio 1.2 INR International Normalized Ratio 1.20 Activated Partial Thromboplast Time 30.3 Sodium Level 132 L Potassium Level 4.6 Chloride Level 92 L Carbon Dioxide Level 31 Anion Gap 14 Blood Urea Nitrogen 50 H Creatinine 6.40 H Glucose Level 86 Hemoglobin A1c 6.2 H Lactic Acid Level 0.8 0.7 1.5 Calcium Level 9.6 Total Bilirubin 0.6 Direct Bilirubin 0.00 Indirect Bilirubin 0.6 Aspartate Amino Transf (AST/SGOT) 27 Alanine Aminotransferase (ALT/SGPT) 27 Alkaline Phosphatase 163 H Troponin I 0.411 *H 0.312 *H Total Protein 7.9 Albumin 4.8 Globulin 3.10 Albumin/Globulin Ratio 1.54 Creatine Kinase 63 Creatine Kinase Index 2.8 Creatinine Kinase MB (Mass) 1.77 Medications Medications Current Medications Amlodipine Besylate (Norvasc) 5 mg BID PO Last administered on 11/12/16 12:30 ; Admin Dose 5 MG; Start 11/12/16 at 11:30 Atorvastatin Calcium (Lipitor) 20 mg QHS PO ; Start 11/12/16 at 21:00 Losartan Potassium (Cozaar) 25 mg DAILY PO Last administered on 11/12/16 12:31 ; Admin Dose 25 MG; Start 11/12/16 at 11:30 Metoprolol Succinate (Toprol Xl) 25 mg DAILY PO Last administered on 11/12/16 12:30; Admin Dose 25 MG; Start 11/12/16 at 11:30 Nifedipine (Procardia Xl) 60 mg DAILY PO Last administered on 11/12/16 12:30; Admin Dose 60 MG; Start 11/12/16 at 11:30 Zolpidem Tartrate (Ambien) 5 mg QHS PRN PO INSOMNIA; Start 11/12/16 at 11:30 Hydralazine HCl (Apresoline) 10 mg Q6H PRN IV SBP>170; Start 11/12/16 at 11:30 Bacitracin/ Polymyxin B Sulfate (Ak-Poly-Loren Oph Oint) 1 applic TID LEFT EYE Last administered on 11/12/16 15:17; Admin Dose 1 APPLIC; Start 11/12/16 at 13: 00 Morphine Sulfate (morphine) 2 mg Q4H PRN IV PAIN LEVEL 6-10; Start 11/12/16 at 14:00 Acetaminophen (Tylenol Tab) 650 mg Q4H PRN PO PAIN AND OR ELEVATED TEMP; Start 11/12/16 at 14:00 ARVIND SHIRLEY MD Nov 12, 2016 17:24
[2016-11-12] MEDS ORDERED: HEPARIN 1000 UNITS/ML 10 ML INJ IV SCH (17:30)
[2016-11-12] MEDS ORDERED: HEPARIN 1000 UNITS/ML 10 ML INJ IV ONE (17:30)
[2016-11-12] MEDS ORDERED: HEPARIN 1000 UNITS/ML 10 ML INJ IV PRN ×2 (17:30)
[2016-11-12] MEDS: ASPIRIN 81 MG TAB PO SCH (17:30)
[2016-11-12] MEDS ORDERED: HEPARIN 25000 UNITS/250 ML 250 ML IV SCH (17:30)
[2016-11-12 17:32] LABS: ADD SCAN DIFF NO
[2016-11-12 17:34] LABS: ABNORMAL IP MESSAGE 1; BASOPHILS % 0.9 % (0.0-2.0); EOSINOPHILS # 0.1 10^3/ul (0.0-0.5); EOSINOPHILS % 2.9 % (0.0-7.0); HEMATOCRIT 29.6 % (42.0-52.0); HEMOGLOBIN 9.9 g/dl (14.0-18.0); LYMPHOCYTES # 0.5 10^3/ul (0.8-2.9); LYMPHOCYTES % 11.9 % (15.0-51.0); MEAN CORPUSCULAR HEMOGLOBIN 29.7 pg (29.0-33.0); MEAN CORPUSCULAR HGB CONC 33.4 g/dl (32.0-37.0); MEAN CORPUSCULAR VOLUME 88.9 fl (82.0-101.0); MEAN PLATELET VOLUME 9.7 fl (7.4-10.4); MONOCYTE # 0.9 10^3/ul (0.3-0.9); NEUTROPHILS % 65.1 % (39.0-77.0); PLATELET COUNT 149 10^3/UL (140-415); RED BLOOD COUNT 3.33 10^6/ul (4.70-6.10); RED CELL DISTRIBUTION WIDTH 16.7 % (11.5-14.5); WHITE BLOOD COUNT 4.5 10^3/ul (4.8-10.8)
[2016-11-12 18:02] LABS: INR 1.19; PROTIME 15.2 Sec (12.2-14.2); PT RATIO 1.2
[2016-11-12 19:09] VITALS: PULSE 75
--- NOTE | 2016-11-12 20:11 | CONS ---
Date/Time of Note Date/Time of Note DATE: 11/12/16 TIME: 20:11 Consultation Date/Type/Reason Admit Date/Time Nov 12, 2016 at 07:20 Type of Consultation: Renal Reason for Consultation ESRD Psychological: no complaints Past Medical History Medical History: coronary artery disease, diabetes, hypertension, renal disease Past Surgical History Past Surgical Hx: appendectomy Social History Alcohol Use: none Smoking Status: Former smoker Drug Use: none Exam/Review of Systems Vital Signs Vitals Vital Signs Date Time Temp Pulse Resp B/P Pulse Ox O2 Delivery O2 Flow Rate FiO2 11/12/16 19:09 75 11/12/16 15:42 97.9 22 118/59 93 11/12/16 10:50 Room Air Results Result Diagram: 11/12/16 1725 11/12/16 0650 Results 24 hrs Laboratory Tests Test 11/12/16 06:50 11/12/16 12:20 11/12/16 14:45 11/12/16 17:25 White Blood Count 4.6 L 4.5 L Red Blood Count 3.51 #L 3.33 L Hemoglobin 10.3 #L 9.9 L Hematocrit 31.4 #L 29.6 L Mean Corpuscular Volume 89.5 88.9 Mean Corpuscular Hemoglobin 29.3 29.7 Mean Corpuscular Hemoglobin Concent 32.8 33.4 Red Cell Distribution Width 16.9 H 16.7 H Platelet Count 151 149 Mean Platelet Volume 9.6 9.7 Neutrophils % 71.0 65.1 Lymphocytes % 10.3 L 11.9 L Monocytes % 15.7 H 19.0 H Eosinophils % 2.2 2.9 Basophils % 0.6 0.9 Nucleated Red Blood Cells % 0.0 0.0 Neutrophils # 3.3 3.0 Lymphocytes # 0.5 L 0.5 L Monocytes # 0.7 0.9 Eosinophils # 0.1 0.1 Basophils # 0.0 0.0 Nucleated Red Blood Cells # 0.0 0.0 Prothrombin Time 15.3 H 15.2 H Prothrombin Time Ratio 1.2 1.2 INR International Normalized Ratio 1.20 1.19 Activated Partial Thromboplast Time 30.3 29.0 Sodium Level 132 L Potassium Level 4.6 Chloride Level 92 L Carbon Dioxide Level 31 Anion Gap 14 Blood Urea Nitrogen 50 H Creatinine 6.40 H Glucose Level 86 Hemoglobin A1c 6.2 H Lactic Acid Level 0.8 0.7 1.5 Calcium Level 9.6 Total Bilirubin 0.6 Direct Bilirubin 0.00 Indirect Bilirubin 0.6 Aspartate Amino Transf (AST/SGOT) 27 Alanine Aminotransferase (ALT/SGPT) 27 Alkaline Phosphatase 163 H Troponin I 0.411 *H 0.312 *H Total Protein 7.9 Albumin 4.8 Globulin 3.10 Albumin/Globulin Ratio 1.54 Creatine Kinase 63 Creatine Kinase Index 2.8 Creatinine Kinase MB (Mass) 1.77 Medications Medications Current Medications Amlodipine Besylate (Norvasc) 5 mg BID PO Last administered on 11/12/16 12:30 ; Admin Dose 5 MG; Start 11/12/16 at 11:30 Losartan Potassium (Cozaar) 25 mg DAILY PO Last administered on 11/12/16 12:31 ; Admin Dose 25 MG; Start 11/12/16 at 11:30 Nifedipine (Procardia Xl) 60 mg DAILY PO Last administered on 11/12/16 12:30; Admin Dose 60 MG; Start 11/12/16 at 11:30 Zolpidem Tartrate (Ambien) 5 mg QHS PRN PO INSOMNIA; Start 11/12/16 at 11:30 Hydralazine HCl (Apresoline) 10 mg Q6H PRN IV SBP>170; Start 11/12/16 at 11:30 Bacitracin/ Polymyxin B Sulfate (Ak-Poly-Loren Oph Oint) 1 applic TID LEFT EYE Last administered on 11/12/16 15:17; Admin Dose 1 APPLIC; Start 11/12/16 at 13: 00 Morphine Sulfate (morphine) 2 mg Q4H PRN IV PAIN LEVEL 6-10; Start 11/12/16 at 14:00 Acetaminophen (Tylenol Tab) 650 mg Q4H PRN PO PAIN AND OR ELEVATED TEMP; Start 11/12/16 at 14:00 Atorvastatin Calcium (Lipitor) 40 mg HS PO ; Start 11/12/16 at 21:00 Heparin Sodium (Porcine) 4000 unit 4,000 unit ONCE IV ; Start 11/12/16 at 17:30 ; Stop 11/12/16 at 23:59 Heparin Sodium (Porcine) (Heparin 24306 Units/250 ml) 250 ml @ 8.5 mls/hr Q24H IV ; Start 11/12/16 at 17:30 Heparin Sodium (Porcine) (Heparin (1000 Units/ml)) PRN PRN IV PENDING LAB VALUE; Start 11/12/16 at 17:30 Aspirin (Aspirin) 81 mg DAILY PO ; Start 11/12/16 at 17:30 Metoprolol Succinate (Toprol Xl) 25 mg TID PO ; Start 11/12/16 at 21:00; Status UNV Miscellaneous Information (*Order Clarification Bulletin) MEDICATION REQUIRES CLARIFICATION: Q8H XX ; Start 11/12/16 at 18:00 PIPER FELIX MD Nov 12, 2016 20:11
[2016-11-12 20:17] VITALS: PULSE 75
[2016-11-12 20:51] VITALS: BP 91/42; PULSE 75
[2016-11-12] MEDS ORDERED: SOD CHLORIDE 0.9% 250 ML IV ONE (21:00)
[2016-11-12] MEDS ORDERED: ATORVASTATIN 20 MG TAB PO SCH (21:00)
[2016-11-12] MEDS: ATORVASTATIN 40 MG TAB PO SCH (21:01)
[2016-11-12] MEDS: HEPARIN 25000 UNITS/D5W 250 ML IV SCH (21:19)
[2016-11-12] MEDS ORDERED: SOD CHLORIDE 0.9% 100 ML ONE (21:20)
[2016-11-12] MEDS ORDERED: IOHEXOL 0 ML ONE (21:20)
[2016-11-12] MEDS ORDERED: IODIXANOL LOCM 100 ML BTL ONE (21:20)
[2016-11-12] MEDS ORDERED: IODIXANOL LOCM 50 ML BTL ONE (21:21)
[2016-11-13] VITALS (19 sets, daily range): BP systolic 92–187; BP diastolic 44–96; PULSE 75–76; RESP 18–20
[2016-11-13] MEDS: ZOLPIDEM 5 MG TAB PO PRN (03:05)
[2016-11-13 05:07] LABS: ADD SCAN DIFF NO
[2016-11-13 05:26] LABS: BASOPHIL # 0.1 10^3/ul (0.0-0.1); EOSINOPHILS # 0.2 10^3/ul (0.0-0.5); EOSINOPHILS % 3.3 % (0.0-7.0); HEMATOCRIT 30.8 % (42.0-52.0); HEMOGLOBIN 9.9 g/dl (14.0-18.0); LYMPHOCYTES # 0.6 10^3/ul (0.8-2.9); LYMPHOCYTES % 12.9 % (15.0-51.0); MEAN CORPUSCULAR HEMOGLOBIN 28.6 pg (29.0-33.0); MEAN CORPUSCULAR HGB CONC 32.1 g/dl (32.0-37.0); MEAN PLATELET VOLUME 10.3 fl (7.4-10.4); MONOCYTE # 0.8 10^3/ul (0.3-0.9); MONOCYTES % 15.8 % (0.0-11.0); NEUTROPHIL # 3.2 10^3/ul (1.6-7.5); NEUTROPHILS % 66.8 % (39.0-77.0); PLATELET COUNT 160 10^3/UL (140-415); RED BLOOD COUNT 3.46 10^6/ul (4.70-6.10); RED CELL DISTRIBUTION WIDTH 16.8 % (11.5-14.5); WHITE BLOOD COUNT 4.8 10^3/ul (4.8-10.8)
[2016-11-13 05:43] LABS: CALCIUM 9.1 mg/dl (8.4-10.2); CREATININE 8.09 mg/dl (0.61-1.24); POTASSIUM 5.5 mmol/L (3.5-5.1)
[2016-11-13] MEDS: HEPARIN 25000 UNITS/D5W 250 ML IV SCH ×3 (06:51→19:33)
--- NOTE | 2016-11-13 08:48 | PN ---
Date/Time of Note Date/Time of Note DATE: 11/13/16 TIME: 08:48 Assessment/Plan Lines/Catheters IV Catheter Type (from [facility]): Peripheral IV Nathan in Place (from [facility]): No Assessment/Plan Chief Complaint/Hosp Course -Bilateral lower extremity atherosclerosis with LLE gangrene: Will schedule for LLE angiogram post cardiac clearance and intervention -Apply Betadine paint to the 5th toe gangrene daily -H&P has been dictated pending medical insurance claims processor Problems: Exam/Review of Systems Vital Signs Vitals Vital Signs Date Time Temp Pulse Resp B/P Pulse Ox O2 Delivery O2 Flow Rate FiO2 11/13/16 08:59 75 11/13/16 07:32 97.9 20 137/58 95 11/12/16 10:50 Room Air Intake and Output 11/12/16 11/12/16 11/13/16 15:00 23:00 07:00 Intake Total 320 ml 377 ml Balance 320 ml 377 ml Results Result Diagram: 11/13/16 0449 11/13/16 0449 AMOS KEYS MD Nov 13, 2016 08:48
[2016-11-13] MEDS: [UNRECOGNIZED DRUG - REMARK] XX SCH ×2 (08:59→09:00)
--- NOTE | 2016-11-13 09:20 | RADRPT ---
PROCEDURE: US Lower extremity Venous. CLINICAL INDICATION: Vein mapping, TECHNIQUE: Multiple sonographic images of the bilateral lower extremity superficial venous system was obtained utilizing grayscale, color-flow, compressive sonography and doppler imaging with augmen tation. The images were reviewed on a PACS workstation. COMPARISON: None. FINDINGS: Measurements from the great saphenous veins were obtained. Right great saphenous vein was divided into eight segments with the first segment being more proxima l in the 8th segment more distal. Measurements were obtained as below in mm. 1. 4.8 mm 2. 2.8 mm 3. 2.0 mm 4. 2.7 mm 5. 3.2 mm 6. 2.8 mm 7. 2.4 mm 8. 1.4 mm Left great saphenous vein was divided into eight segments with the first segment being more proximal in the 8th segment more distal. Measurements were obtained as below in mm. 1. 4.5 mm 2. 5.1 mm 3. 4.1 mm 4. 4.0 mm 5. 3.2 mm 6. 3.1 mm 7. 3.8 mm 8. 2.3 mm . IMPRESSION: Bilateral greater saphenous vein mapping as described.. RPTAT: AA .Juno Davidson MD, Date Time Electronically viewed and signed by .Juno Davidson MD, MD on 11/13/2016 09:19 .S/
[2016-11-13] MEDS: SEVELAMER 800 MG TAB PO SCH ×3 (09:45→17:36)
[2016-11-13] MEDS: ASPIRIN 81 MG TAB PO SCH (09:45)
[2016-11-13] MEDS: BACITRACIN/POLYMYX 3.5 GM OPH OINT LEFT EYE SCH ×2 (09:45→12:58)
[2016-11-13] MEDS: LOSARTAN 25 MG TAB PO SCH (09:47)
[2016-11-13] MEDS: NIFEdipine (XL) 60 MG TAB PO SCH (09:47)
[2016-11-13] MEDS: AMLODIPINE 5 MG TAB PO SCH ×2 (09:47→21:30)
[2016-11-13] MEDS: METOPROLOL 25 MG TAB PO SCH ×4 (09:48→21:31)
[2016-11-13] MEDS ORDERED: IOHEXOL 100 ML ONE (10:52)
[2016-11-13] MEDS ORDERED: SOD CHLORIDE 0.9% 100 ML ONE (10:52)
[2016-11-13] MEDS ORDERED: IOHEXOL 350MG/ML 50 ML BTL ONE (10:52)
--- NOTE | 2016-11-13 11:53 | RADRPT ---
PROCEDURE: CT angiogram of the pelvis with bilateral lower extremity runoff and with 3-D reconstru ctions CLINICAL INDICATION: Peripheral vascular disease TECHNIQUE: CT angiogram of the pelvis with lower extremity runoff was performed on a multislice CT scanner . The patient was scanned after administration of intravenous contrast. Sagittal and kenton nal reformatted images were obtained from the axial source images. 3D MIP reformatted images were al so created from the axial source images. DLP 667.02 mGycm CTDI vol 147.88, 4.81 mGy COMPARISON: Duplex sonogram of bilateral lower extremity arteries from 11/12/2016 FINDINGS: ANGIOGRAM: There is no acute dissection or aneurysm of the abdominal aorta. There are circumferential atherosclerotic calcifications of the visualized SHAKEEL. Common, internal and external iliac arteries are patent bilaterally. RIGHT LOWER EXTREMITY: There are dense circumferential calcifications in the right common femoral artery producing moderate narrowing on series 3, image 94. There are dense atherosclerotic calcifications crossing multifocal moderate narrowing of the right p rofunda artery. There are dense circumferential atherosclerotic calcifications producing multifocal mild narrowing o f the right superficial femoral artery. There is a focus of short segment moderate narrowing due to circumferential atherosclerotic calcific ations in the right above-knee popliteal artery as it exits Se's canal with a second focus of at least moderate narrowing on image 251. There is severe narrowing of the mid right popliteal artery due to bulky calcifications on image 297 with near - occlusion on image 301 (a miniscule channel of contrast is noted through the calcifications at this level). There is a focus of short segment sev ere narrowing of the below-knee popliteal artery on image 320 with a second focus of severe narrowin g at the anterior tibial artery origin. There are nearly uninterrupted and circumferential calcifications of the anterior and posterior tibi al arteries which limits evaluation. There is multifocal short segment occlusion and reconstitution of the peroneal artery throughout the calf. LEFT LOWER EXTREMITY: The left common femoral artery is widely patent. There are atherosclerotic calcifications producing mild narrowing of the proximal left profunda codie ry as well as mild to moderate narrowing at the origin of the left superficial femoral artery. The remainder of the left superficial femoral artery is widely patent. There are bulky atherosclerotic calcifications in the left popliteal artery which produce short segm ent occlusion in its midportion on series 3, image 285. Multifocal severe narrowing is noted in the remainder of the left popliteal artery. There is a focus of severe narrowing in the popliteal codie ry at the level of the anterior tibial artery origin. There is severe narrowing of the proximal tibioperoneal trunk. There are nearly uninterrupted and circumferential calcifications of the anterior and posterior tibi al arteries which limits evaluation. There is multifocal short segment occlusion and reconstitution of the peroneal artery throughout the calf. ANCILLARY: A device is noted within the superficial soft tissues of the right groin with the catheter entering via the right common femoral vein extending into the visualized right common iliac vein. The prostate is prominent, measuring up to 5.7 cm in diameter. There are colonic diverticula without evidence of diverticulitis. The bladder lr are prominent a lthough it is underdistended which limits evaluation. IMPRESSION: Moderate short segment narrowing of the right common femoral artery. There is multifocal moderate t o severe narrowing of the right popliteal artery with a focus of occlusion or near - occlusion in it s midportion. Mild to moderate narrowing at the origin of the left superficial femoral artery. There is multifoca l severe narrowing of the left popliteal artery with a focus of occlusion in its midportion. Nearly uninterrupted thick circumferential calcifications of the bilateral anterior and posterior ti bial arteries which limit evaluation. Bilateral peroneal arteries demonstrate multifocal short segm ent occlusions and reconstitutions. Catheter angiography is recommended for further evaluation of th e infrapopliteal arteries. Partially visualized device in the right inguinal region with catheters extending up into the right common iliac vein. Prominent prostate measuring up to 5.7 cm. Correlation with PSA level is recommended. RPTAT: EE Kody Burrows Physician Date Time Electronically viewed and signed by Kody Burrows Physician on 11/13/2016 11:52 /
--- NOTE | 2016-11-13 14:15 | CONS ---
Date/Time of Note Date/Time of Note DATE: 11/13/16 TIME: 14:14 Assessment/Plan Assessment/Plan Chief Complaint/Hosp Course Alert in no distress, daughter at bedside Temperature 98.2 pulse 75 respirations 18 blood pressure 168/87 saturation 99% on room air WBC 4.8 H&H 9.9 and 30.8 platelets 160 no shift no balance microbiology: All cultures negative Physical examination: Well-developed well-nourished elderly man who is alert in no distress. Head atraumatic normocephalic sclera nonicteric bugle mucosa dry neck is supple chest rise symmetrical breath sounds clear heart S1-S2 abdomen soft bowel tones present, extremities with left foot erythema and gangrene of the toe Assessment: 1. Left foot cellulitis, fifth toe gangrene 2. Peripheral vascular disease 3. End-stage renal disease, hemodialysis dependent 4. Hypertension 5. Patchy opacification in the right lower lung per chest x-ray on admission questionable infiltrate Plan: Clinically stable, will keep on broad-spectrum antibiotics, check chest x- ray in a.m., follow podiatry and vascular surgery recommendations, hemodialysis per renal Discussed with family at bedside Problems: Consultation Date/Type/Reason Admit Date/Time Nov 12, 2016 at 07:20 Initial Consult Date Type of Consultation: ID Exam/Review of Systems Vital Signs Vitals Vital Signs Date Time Temp Pulse Resp B/P Pulse Ox O2 Delivery O2 Flow Rate FiO2 11/13/16 12:41 98.2 75 18 168/87 99 11/12/16 10:50 Room Air Intake and Output 11/12/16 11/12/16 11/13/16 15:00 23:00 07:00 Intake Total 320 ml 377 ml Balance 320 ml 377 ml Results Result Diagram: 11/13/16 0449 11/13/16 0449 Results 24 hrs Laboratory Tests Test 11/12/16 14:45 11/12/16 17:25 11/13/16 04:49 11/13/16 10:59 Lactic Acid Level 1.5 Creatine Kinase 63 Creatine Kinase Index 2.8 Creatinine Kinase MB (Mass) 1.77 Troponin I 0.312 *H White Blood Count 4.5 L 4.8 Red Blood Count 3.33 L 3.46 L Hemoglobin 9.9 L 9.9 L Hematocrit 29.6 L 30.8 L Mean Corpuscular Volume 88.9 89.0 Mean Corpuscular Hemoglobin 29.7 28.6 L Mean Corpuscular Hemoglobin Concent 33.4 32.1 Red Cell Distribution Width 16.7 H 16.8 H Platelet Count 149 160 Mean Platelet Volume 9.7 10.3 Neutrophils % 65.1 66.8 Lymphocytes % 11.9 L 12.9 L Monocytes % 19.0 H 15.8 H Eosinophils % 2.9 3.3 Basophils % 0.9 1.0 Nucleated Red Blood Cells % 0.0 0.0 Neutrophils # 3.0 3.2 Lymphocytes # 0.5 L 0.6 L Monocytes # 0.9 0.8 Eosinophils # 0.1 0.2 Basophils # 0.0 0.1 Nucleated Red Blood Cells # 0.0 0.0 Prothrombin Time 15.2 H Prothrombin Time Ratio 1.2 INR International Normalized Ratio 1.19 Activated Partial Thromboplast Time 29.0 37.5 H 71.7 *H Sodium Level 136 Potassium Level 5.5 H Chloride Level 96 L Carbon Dioxide Level 26 Anion Gap 20 H Blood Urea Nitrogen 68 H Creatinine 8.09 H Glucose Level 100 Calcium Level 9.1 Medications Medications Current Medications Amlodipine Besylate (Norvasc) 5 mg BID PO Last administered on 11/13/16 09:47 ; Admin Dose 5 MG; Start 11/12/16 at 11:30 Losartan Potassium (Cozaar) 25 mg DAILY PO Last administered on 11/13/16 09:47 ; Admin Dose 25 MG; Start 11/12/16 at 11:30 Nifedipine (Procardia Xl) 60 mg DAILY PO Last administered on 11/13/16 09:47; Admin Dose 60 MG; Start 11/12/16 at 11:30 Zolpidem Tartrate (Ambien) 5 mg QHS PRN PO INSOMNIA Last administered on 03:05; Admin Dose 5 MG; Start 11/12/16 at 11:30 Hydralazine HCl (Apresoline) 10 mg Q6H PRN IV SBP>170; Start 11/12/16 at 11:30 Bacitracin/ Polymyxin B Sulfate (Ak-Poly-Loren Oph Oint) 1 applic TID LEFT EYE Last administered on 11/13/16 12:58; Admin Dose 1 APPLIC; Start 11/12/16 at 13: 00 Morphine Sulfate (morphine) 2 mg Q4H PRN IV PAIN LEVEL 6-10; Start 11/12/16 at 14:00 Acetaminophen (Tylenol Tab) 650 mg Q4H PRN PO PAIN AND OR ELEVATED TEMP; Start 11/12/16 at 14:00 Atorvastatin Calcium 40 mg 40 mg HS PO Last administered on 11/12/16 21:01; Admin Dose 40 MG; Start 11/12/16 at 21:00 Heparin Sodium (Porcine) (Heparin 83813 Units/250 ml) 250 ml @ 11.5 mls/hr Q24H IV Last administered on 11/13/16 13:03; Admin Dose 10.8 MLS/HR; Start 03/21 at 17:30 Heparin Sodium (Porcine) (Heparin (1000 Units/ml)) PRN PRN IV PENDING LAB VALUE Last administered on 11/13/16 06:42; Admin Dose 4,000 UNIT; Start at 17:30 Aspirin (Aspirin) 81 mg DAILY PO Last administered on 11/13/16 09:45; Admin Dose 81 MG; Start 11/12/16 at 17:30 Metoprolol Tartrate (Lopressor) 25 mg TID PO Last administered on 11/13/16 12: 59; Admin Dose 25 MG; Start 11/13/16 at 10:00 SHITAL MCKEON NP Nov 13, 2016 14:14
[2016-11-13] MEDS ORDERED: VANCOMYCIN IV PER PHARMACY XX SCH (14:30)
--- NOTE | 2016-11-13 17:13 | CONS ---
Date/Time of Note Date/Time of Note DATE: 11/13/16 TIME: 17:12 Assessment/Plan Assessment/Plan Additional Assessment/Plan 1. Left foot cellulitis, fifth toe gangrene 2. Peripheral vascular disease 3. End-stage renal disease, hemodialysis dependent 4. Hypertension 5. Patchy opacification in the right lower lung per chest x-ray on admission questionable infiltrate Consultation Date/Type/Reason Admit Date/Time Nov 12, 2016 at 07:20 Initial Consult Date Type of Consultation: Renal 24 HR Interval Summary Free Text/Dictation S/p HD Exam/Review of Systems Vital Signs Vitals Vital Signs Date Time Temp Pulse Resp B/P Pulse Ox O2 Delivery O2 Flow Rate FiO2 11/13/16 16:36 75 11/13/16 15: 98.1 18 119/57 99 11/12/16 10:50 Room Air Intake and Output 11/12/16 11/12/16 11/13/16 15:00 23:00 07:00 Intake Total 320 ml 377 ml Balance 320 ml 377 ml Results Result Diagram: 11/13/16 0449 11/13/16 0449 Results 24 hrs Laboratory Tests Test 11/12/16 17:25 11/13/16 04:49 11/13/16 10:59 White Blood Count 4.5 L 4.8 Red Blood Count 3.33 L 3.46 L Hemoglobin 9.9 L 9.9 L Hematocrit 29.6 L 30.8 L Mean Corpuscular Volume 88.9 89.0 Mean Corpuscular Hemoglobin 29.7 28.6 L Mean Corpuscular Hemoglobin Concent 33.4 32.1 Red Cell Distribution Width 16.7 H 16.8 H Platelet Count 149 160 Mean Platelet Volume 9.7 10.3 Neutrophils % 65.1 66.8 Lymphocytes % 11.9 L 12.9 L Monocytes % 19.0 H 15.8 H Eosinophils % 2.9 3.3 Basophils % 0.9 1.0 Nucleated Red Blood Cells % 0.0 0.0 Neutrophils # 3.0 3.2 Lymphocytes # 0.5 L 0.6 L Monocytes # 0.9 0.8 Eosinophils # 0.1 0.2 Basophils # 0.0 0.1 Nucleated Red Blood Cells # 0.0 0.0 Prothrombin Time 15.2 H Prothrombin Time Ratio 1.2 INR International Normalized Ratio 1.19 Activated Partial Thromboplast Time 29.0 37.5 H 71.7 *H Sodium Level 136 Potassium Level 5.5 H Chloride Level 96 L Carbon Dioxide Level 26 Anion Gap 20 H Blood Urea Nitrogen 68 H Creatinine 8.09 H Glucose Level 100 Calcium Level 9.1 Medications Medications Current Medications Amlodipine Besylate (Norvasc) 5 mg BID PO Last administered on 11/13/16 09:47 ; Admin Dose 5 MG; Start 11/12/16 at 11:30 Losartan Potassium (Cozaar) 25 mg DAILY PO Last administered on 11/13/16 09:47 ; Admin Dose 25 MG; Start 11/12/16 at 11:30 Nifedipine (Procardia Xl) 60 mg DAILY PO Last administered on 11/13/16 09:47; Admin Dose 60 MG; Start 11/12/16 at 11:30 Zolpidem Tartrate (Ambien) 5 mg QHS PRN PO INSOMNIA Last administered on 03:05; Admin Dose 5 MG; Start 11/12/16 at 11:30 Hydralazine HCl (Apresoline) 10 mg Q6H PRN IV SBP>170; Start 11/12/16 at 11:30 Bacitracin/ Polymyxin B Sulfate (Ak-Poly-Loren Oph Oint) 1 applic TID LEFT EYE Last administered on 11/13/16 12:58; Admin Dose 1 APPLIC; Start 11/12/16 at 13: 00 Morphine Sulfate (morphine) 2 mg Q4H PRN IV PAIN LEVEL 6-10; Start 11/12/16 at 14:00 Acetaminophen (Tylenol Tab) 650 mg Q4H PRN PO PAIN AND OR ELEVATED TEMP; Start 11/12/16 at 14:00 Atorvastatin Calcium 40 mg 40 mg HS PO Last administered on 11/12/16 21:01; Admin Dose 40 MG; Start 11/12/16 at 21:00 Heparin Sodium (Porcine) (Heparin 55214 Units/250 ml) 250 ml @ 11.5 mls/hr Q24H IV Last administered on 11/13/16 13:03; Admin Dose 10.8 MLS/HR; Start 03/21 at 17:30 Heparin Sodium (Porcine) (Heparin (1000 Units/ml)) PRN PRN IV PENDING LAB VALUE Last administered on 11/13/16 06:42; Admin Dose 4,000 UNIT; Start at 17:30 Aspirin (Aspirin) 81 mg DAILY PO Last administered on 11/13/16 09:45; Admin Dose 81 MG; Start 11/12/16 at 17:30 Metoprolol Tartrate 25 mg 25 mg TID PO Last administered on 11/13/16 12:59; Admin Dose 25 MG; Start 11/13/16 at 10:00 Piperacillin Sod/ Tazobactam Sod (Zosyn 2.25gm/ 50ml (Pmx)) 50 ml @ 100 mls/hr Q8 IVPB ; Start 11/13/16 at 22:00 Miscellaneous Information (*Rx Drug Level Order Reminder*) RANDOM VANCOMYCIN LEVEL 7... ONCE ONCE XX ; Start 11/14/16 at 05:00; Stop 11/14/16 at 05:01 PIPER FELIX MD Nov 13, 2016 17:12
--- NOTE | 2016-11-13 17:31 | PN ---
Date/Time of Note Date/Time of Note DATE: 11/13/16 TIME: 17:25 Assessment/Plan VTE Prophylaxis VTE Prophylaxis Intervention: SCD's Lines/Catheters IV [facility]from [facility] Saline Lock Urinary Cath still in place: No Assessment/Plan Chief Complaint/Hosp Course Patient status post CT angio today, pain is well controlled, denies any nausea vomiting. Assessment/Plan -NSTEMI, Dr. Pike is following in cardiology consultation. -Left fifth toe gangrene with cellulitis, continue antibiotics. Dr. Tobias is following in infection disease consultation. is following in podiatry consultation -Peripheral vascular disease, Dr. Zaragoza is following in vascular surgery consultation. -Hypertension, continue patient's home blood pressure medication, hydralazine as needed for systolic blood pressure above 170. -End-stage renal disease, continue hemodialysis per nephrology Dr. Newby is following in nephrology consultation. Further recommendations based on clinical course. End of care discussed with Dr. French. Problems: Exam/Review of Systems Vital Signs Vitals Vital Signs Date Time Temp Pulse Resp B/P Pulse Ox O2 Delivery O2 Flow Rate FiO2 11/13/16 16:36 75 11/13/16 15:17 98.1 18 119/57 99 11/12/16 10:50 Room Air Intake and Output 11/12/16 11/12/16 11/13/16 15:00 23:00 07:00 Intake Total 320 ml 377 ml Balance 320 ml 377 ml Exam Constitutional: alert, oriented Psych: no complaints Head: atraumatic, normocephalic Eyes: other (Blind) Neck: supple Respiratory: normal air movement Cardiovascular: nl pulses Gastrointestinal: non-tender Extremities: normal pulses Neurological: nl mental status Skin: nl turgor, other (Left fifth toe necrotic, erythema extending from toes to foot, tenderness) Results Result Diagram: 11/13/16 0449 11/13/169 Results 24 hrs Laboratory Tests Test 11/13/16 04:49 11/13/16 10:59 White Blood Count 4.8 Red Blood Count 3.46 L Hemoglobin 9.9 L Hematocrit 30.8 L Mean Corpuscular Volume 89.0 Mean Corpuscular Hemoglobin 28.6 L Mean Corpuscular Hemoglobin Concent 32.1 Red Cell Distribution Width 16.8 H Platelet Count 160 Mean Platelet Volume 10.3 Neutrophils % 66.8 Lymphocytes % 12.9 L Monocytes % 15.8 H Eosinophils % 3.3 Basophils % 1.0 Nucleated Red Blood Cells % 0.0 Neutrophils # 3.2 Lymphocytes # 0.6 L Monocytes # 0.8 Eosinophils # 0.2 Basophils # 0.1 Nucleated Red Blood Cells # 0.0 Activated Partial Thromboplast Time 37.5 H 71.7 *H Sodium Level 136 Potassium Level 5.5 H Chloride Level 96 L Carbon Dioxide Level 26 Anion Gap 20 H Blood Urea Nitrogen 68 H Creatinine 8.09 H Glucose Level 100 Calcium Level 9.1 Medications Medications Current Medications Amlodipine Besylate (Norvasc) 5 mg BID PO Last administered on 11/13/16 09:47 ; Admin Dose 5 MG; Start 11/12/16 at 11:30 Losartan Potassium (Cozaar) 25 mg DAILY PO Last administered on 11/13/16 09:47 ; Admin Dose 25 MG; Start 11/12/16 at 11:30 Nifedipine (Procardia Xl) 60 mg DAILY PO Last administered on 11/13/16 09:47; Admin Dose 60 MG; Start 11/12/16 at 11:30 Zolpidem Tartrate (Ambien) 5 mg QHS PRN PO INSOMNIA Last administered on 03:05; Admin Dose 5 MG; Start 11/12/16 at 11:30 Hydralazine HCl (Apresoline) 10 mg Q6H PRN IV SBP>170; Start 11/12/16 at 11:30 Bacitracin/ Polymyxin B Sulfate (Ak-Poly-Loren Oph Oint) 1 applic TID LEFT EYE Last administered on 11/13/16 12:58; Admin Dose 1 APPLIC; Start 11/12/16 at 13: 00 Morphine Sulfate (morphine) 2 mg Q4H PRN IV PAIN LEVEL 6-10; Start 11/12/16 at 14:00 Acetaminophen (Tylenol Tab) 650 mg Q4H PRN PO PAIN AND OR ELEVATED TEMP; Start 11/12/16 at 14:00 Atorvastatin Calcium 40 mg 40 mg HS PO Last administered on 11/12/16 21:01; Admin Dose 40 MG; Start 11/12/16 at 21:00 Heparin Sodium (Porcine) (Heparin 36168 Units/250 ml) 250 ml @ 11.5 mls/hr Q24H IV Last administered on 11/13/16 13:03; Admin Dose 10.8 MLS/HR; Start 03/21 at 17:30 Heparin Sodium (Porcine) (Heparin (1000 Units/ml)) PRN PRN IV PENDING LAB VALUE Last administered on 11/13/16 06:42; Admin Dose 4,000 UNIT; Start at 17:30 Aspirin (Aspirin) 81 mg DAILY PO Last administered on 11/13/16 09:45; Admin Dose 81 MG; Start 11/12/16 at 17:30 Metoprolol Tartrate 25 mg 25 mg TID PO Last administered on 11/13/16 12:59; Admin Dose 25 MG; Start 11/13/16 at 10:00 Piperacillin Sod/ Tazobactam Sod (Zosyn 2.25gm/ 50ml (Pmx)) 50 ml @ 100 mls/hr Q8 IVPB ; Start 11/13/16 at 22:00 Miscellaneous Information (*Rx Drug Level Order Reminder*) RANDOM VANCOMYCIN LEVEL 7... ONCE ONCE XX ; Start 11/14/16 at 05:00; Stop 11/14/16 at 05:01 VIV KING Nov 13, 2016 17:31
--- NOTE | 2016-11-13 20:10 | CONS ---
Date/Time of Note Date/Time of Note DATE: 11/12/16 TIME: 20:03 Assessment/Plan Assessment/Plan Problems: (1) Toe gangrene (2) Toe cyanosis (3) Peripheral vascular disease (4) Diabetes, polyneuropathy (5) Blindness (6) NSTEMI (non-ST elevated myocardial infarction) Status: Acute Additional Assessment/Plan Patient is at high risk for limb loss. My recommendation is for patient to be fully evaluated by vascular surgery prior to any type of foot intervention. I have discussed this with patient's family. Pending revascularization by vascular surgery, patient will require transmetatarsal amputation as the minimum level of salvageable treatment. Patient may require more proximal amputation pending vascular surgery findings. The foot cradle will be ordered. Betadine will be painted onto the left forefoot and patient will be monitored in-house. Prognosis is poor as far as the left lower extremity. Thank you again for involving me in the care of this patient. If you have any questions regarding this case, please feel free to contact me at pager: or reach me at mobile: [phone]. Consultation Date/Type/Reason Admit Date/Time Nov 12, 2016 at 07:20 Date of Consultation: Nov 12, 2016 Type of Consultation: Foot and ankle surgery Reason for Consultation Ischemic changes to the left forefoot Hx of Present Illness Thank you very much for involving me in the care of this patient. As you very well know this is a 61-year-old male patient with multiple medical problems including diabetes mellitus, hypertension, coronary artery disease, end-stage renal disease on hemodialysis, peripheral vascular disease, blindness who has developed gangrenous changes to his left forefoot including the fifth toe and ischemic changes of the second through the fourth toes. Patient is noncommunicative at the time of the visit and most of the history is obtained from patient's family that was present along with chart review. Patient apparently presented to the emergency room with complaint of left fifth toe necrosis and significant pain. Apparently the pain has gotten worse over the last few days. In the emergency room, patient was found to have elevated troponin levels of 0.4. His chest x-ray apparently revealed CHF and opacification of the right lower lung. I have been consulted for evaluation of his left forefoot ischemia. Psychological: no complaints Past Medical History As per history of present illness. Medical History: coronary artery disease, diabetes, hypertension, renal disease Past Surgical History As per history of present illness. Past Surgical Hx: appendectomy Social History As per history of present illness. Alcohol Use: none Smoking Status: Former smoker Drug Use: none Exam/Review of Systems Vital Signs Vitals Vital Signs Date Time Temp Pulse Resp B/P Pulse Ox O2 Delivery O2 Flow Rate FiO2 11/13/16 16:36 75 11/13/16 15: 98.1 18 119/57 99 11/12/16 10:50 Room Air Intake and Output 11/12/16 11/12/16 11/13/16 15:00 23:00 07:00 Intake Total 320 ml 377 ml Balance 320 ml 377 ml Exam Patient is laying supine in bed in no acute distress. Left lower extremity temperature gradient is increased as compared to the right. Patient has gangrenous changes of the left fifth toe with significant ischemia and cyanosis of the remaining toes of the left foot. Nonpalpable dorsalis pedis and posterior tibial pulses noted on the left lower extremity and weak pulses noted on the right lower extremity. Labs reviewed. Patient guarding noted on examination of the left foot. There is no active open wound noted on bilateral lower extremity. Results Result Diagram: 11/13/16 0449 11/13/16 0449 Results 24 hrs Laboratory Tests Test 11/13/16 04:49 11/13/16 10:59 11/13/16 17:28 White Blood Count 4.8 Red Blood Count 3.46 L Hemoglobin 9.9 L Hematocrit 30.8 L Mean Corpuscular Volume 89.0 Mean Corpuscular Hemoglobin 28.6 L Mean Corpuscular Hemoglobin Concent 32.1 Red Cell Distribution Width 16.8 H Platelet Count 160 Mean Platelet Volume 10.3 Neutrophils % 66.8 Lymphocytes % 12.9 L Monocytes % 15.8 H Eosinophils % 3.3 Basophils % 1.0 Nucleated Red Blood Cells % 0.0 Neutrophils # 3.2 Lymphocytes # 0.6 L Monocytes # 0.8 Eosinophils # 0.2 Basophils # 0.1 Nucleated Red Blood Cells # 0.0 Activated Partial Thromboplast Time 37.5 H 71.7 *H 48.7 H Sodium Level 136 Potassium Level 5.5 H Chloride Level 96 L Carbon Dioxide Level 26 Anion Gap 20 H Blood Urea Nitrogen 68 H Creatinine 8.09 H Glucose Level 100 Calcium Level 9.1 Medications Medications Current Medications Amlodipine Besylate (Norvasc) 5 mg BID PO Last administered on 11/13/16 09:47 ; Admin Dose 5 MG; Start 11/12/16 at 11:30 Losartan Potassium (Cozaar) 25 mg DAILY PO Last administered on 11/13/16 09:47 ; Admin Dose 25 MG; Start 11/12/16 at 11:30 Nifedipine (Procardia Xl) 60 mg DAILY PO Last administered on 11/13/16 09:47; Admin Dose 60 MG; Start 11/12/16 at 11:30 Zolpidem Tartrate (Ambien) 5 mg QHS PRN PO INSOMNIA Last administered on 03:05; Admin Dose 5 MG; Start 11/12/16 at 11:30 Hydralazine HCl (Apresoline) 10 mg Q6H PRN IV SBP>170; Start 11/12/16 at 11:30 Bacitracin/ Polymyxin B Sulfate (Ak-Poly-Loren Oph Oint) 1 applic TID LEFT EYE Last administered on 11/13/16 12:58; Admin Dose 1 APPLIC; Start 11/12/16 at 13: 00 Morphine Sulfate (morphine) 2 mg Q4H PRN IV PAIN LEVEL 6-10; Start 11/12/16 at 14:00 Acetaminophen (Tylenol Tab) 650 mg Q4H PRN PO PAIN AND OR ELEVATED TEMP; Start 11/12/16 at 14:00 Atorvastatin Calcium 40 mg 40 mg HS PO Last administered on 11/12/16 21:01; Admin Dose 40 MG; Start 11/12/16 at 21:00 Heparin Sodium (Porcine) (Heparin 11497 Units/250 ml) 250 ml @ 11.5 mls/hr Q24H IV Last administered on 11/13/16 19:33; Admin Dose 12 MLS/HR; Start 11/12 at 17:30 Heparin Sodium (Porcine) (Heparin (1000 Units/ml)) PRN PRN IV PENDING LAB VALUE Last administered on 11/13/16 06:42; Admin Dose 4,000 UNIT; Start at 17:30 Aspirin (Aspirin) 81 mg DAILY PO Last administered on 11/13/16 09:45; Admin Dose 81 MG; Start 11/12/16 at 17:30 Metoprolol Tartrate 25 mg 25 mg TID PO Last administered on 11/13/16t 12:59; Admin Dose 25 MG; Start 11/13/16 at 10:00 Piperacillin Sod/ Tazobactam Sod (Zosyn 2.25gm/ 50ml (Pmx)) 50 ml @ 100 mls/hr Q8 IVPB ; Start 11/13/16 at 22:00 Miscellaneous Information (*Rx Drug Level Order Reminder*) RANDOM VANCOMYCIN LEVEL 7... ONCE ONCE XX ; Start 11/14/16 at 05:00; Stop 11/14/16 at 05:01 MARKIE ORO DPM Nov 13, 2016 20:09
--- NOTE | 2016-11-13 20:12 | PN ---
Date/Time of Note Date/Time of Note DATE: 11/13/16 TIME: 20:10 Assessment/Plan Lines/Catheters IV C[facility] Type (from [facility] Saline Lock [facility] in Place (from Nrs): No Assessment/Plan Problems: (1) Toe gangrene (2) Toe cyanosis (3) Peripheral vascular disease (4) Diabetes, polyneuropathy (5) Blindness (6) Anemia Status: Acute Qualifiers: Anemia type: unspecified type Qualified Code: D64.9 - Anemia, unspecified type (7) NSTEMI (non-ST elevated myocardial infarction) Status: Acute Assessment/Plan Continue Betadine paint of the left forefoot. Continue bed cradle. Continue heel elevators. Pending vascular surgery intervention. I will follow patient in-house. Subjective 24 Hr Interval Summary Patient was seen and examined at bedside. He is in no acute distress. Constitutional: no complaints Pain Control: well controlled Exam/Review of Systems Vital Signs Vitals Vital Signs Date Time Temp Pulse Resp B/P Pulse Ox O2 Delivery O2 Flow Rate FiO2 11/13/16 16:36 75 11/13/16 15:17 98.1 18 119/57 99 11/12/16 10:50 Room Air Intake and Output 11/12/16 11/12/16 11/13/16 15:00 23:00 07:00 Intake Total 320 ml 377 ml Balance 320 ml 377 ml Exam Free Text/Dictation In no acute distress laying supine. Left foot shows no significant changes. He continues to have gangrene of the left fifth toe with cyanosis of the second through the fourth toes. There is nonpalpable dorsalis pedis and posterior tibial pulses on the left lower extremity and weakly palpable pulses on the right foot. Patient continues to not have an open wound. Labs reviewed. Results Result Diagram: 11/13/16 0449 11/13/16 0449 MARKIE ORO DPM Nov 13, 2016 20:12
[2016-11-13] MEDS: ATORVASTATIN 40 MG TAB PO SCH (21:30)
[2016-11-13] MEDS: PIPER-TAZO 2.25 GM (PMX) 50 ML IVPB SCH (21:35)
[2016-11-14] VITALS (12 sets, daily range): BP systolic 117–173; BP diastolic 60–94; PULSE 75; RESP 18–20
[2016-11-14] MEDS: BACITRACIN/POLYMYX 3.5 GM OPH OINT LEFT EYE SCH ×4 (00:13→20:58)
[2016-11-14] MEDS: METOPROLOL 25 MG TAB PO SCH ×4 (00:13→20:51)
[2016-11-14] MEDS: HEPARIN 25000 UNITS/D5W 250 ML IV SCH ×5 (03:20→17:30)
[2016-11-14] MEDS: PIPER-TAZO 2.25 GM (PMX) 50 ML IVPB SCH ×3 (05:12→20:50)
[2016-11-14 06:03] LABS: ADD SCAN DIFF NO
[2016-11-14 06:05] LABS: EOSINOPHILS # 0.2 10^3/ul (0.0-0.5); EOSINOPHILS % 3.7 % (0.0-7.0); HEMATOCRIT 28.5 % (42.0-52.0); HEMOGLOBIN 9.2 g/dl (14.0-18.0); LYMPHOCYTES # 0.6 10^3/ul (0.8-2.9); LYMPHOCYTES % 15.1 % (15.0-51.0); MEAN CORPUSCULAR HEMOGLOBIN 28.7 pg (29.0-33.0); MEAN CORPUSCULAR HGB CONC 32.3 g/dl (32.0-37.0); MEAN CORPUSCULAR VOLUME 88.8 fl (82.0-101.0); MEAN PLATELET VOLUME 10.5 fl (7.4-10.4); MONOCYTE # 0.6 10^3/ul (0.3-0.9); MONOCYTES % 15.6 % (0.0-11.0); NEUTROPHIL # 2.6 10^3/ul (1.6-7.5); NEUTROPHILS % 64.4 % (39.0-77.0); PLATELET COUNT 172 10^3/UL (140-415); RED BLOOD COUNT 3.21 10^6/ul (4.70-6.10); RED CELL DISTRIBUTION WIDTH 16.5 % (11.5-14.5)
[2016-11-14 06:36] LABS: CALCIUM 9.1 mg/dl (8.4-10.2); CREATININE 6.98 mg/dl (0.61-1.24); POTASSIUM 4.7 mmol/L (3.5-5.1)
[2016-11-14] MEDS: ASPIRIN 81 MG TAB PO SCH (09:53)
[2016-11-14] MEDS: LOSARTAN 25 MG TAB PO SCH (09:53)
[2016-11-14] MEDS: SEVELAMER 800 MG TAB PO SCH ×3 (09:53→18:50)
[2016-11-14] MEDS: AMLODIPINE 5 MG TAB PO SCH ×2 (09:53→20:51)
[2016-11-14] MEDS: NIFEdipine (XL) 60 MG TAB PO SCH (09:53)
[2016-11-14] MEDS ORDERED: VANCOMYCIN 1 GM in NS 250 ML IVPB ONE (12:00)
--- NOTE | 2016-11-14 13:08 | CONS ---
DATE OF ADMISSION: 11/12/2016 DATE OF CONSULTATION: HISTORY OF PRESENT ILLNESS: The patient is a 51-year-old gentleman with end-stage renal disease with a left upper extremity AV fistula, who presented with left lower extremity 5th toe gangrene and diabetic foot infection. The patient mentions that he started having this pain about a few days ago, in which his symptoms have been getting worse, and upon further evaluation we identified that the patient has positive troponins and is currently being evaluated by our cardiology colleagues. Upon the ultrasound of his lower extremities was identified that the patient has what seems to be areas of stenosis of the bilateral lower extremities involving disease which would require intervention specifically in his infrapopliteal region. At the moment he denies shortness of breath, chest pain, nausea, vomiting, fever, or chills. He does have left lower extremity discomfort. PAST MEDICAL HISTORY: Entails end-stage renal disease on dialysis Friday, Friday, Friday, coronary artery disease, diabetes, bilateral lower extremity atherosclerosis, legally blind, hypertension, anemia of chronic disease. PAST SURGICAL HISTORY: Appendectomy, left upper extremity AV fistula creation at the wrist, a new one in the upper arm. FAMILY HISTORY: Positive for hypertension, diabetes. SOCIAL HISTORY: Previous smoker. Denies current use of tobacco, alcohol, or illicit drug use. GENERAL: Alert and oriented times 3, in no apparent distress. HEENT: Legally blind. Normocephalic, atraumatic. Mucosa moist. NECK: Supple. No carotid bruit. LUNGS: Clear to auscultation bilaterally. No crackles. HEART: S1, S2 is present. ABDOMEN: Soft, nontender, nondistended. Bowel sounds positive. EXTREMITIES: Lower extremities: Right lower extremity palpable femoral pulse, faint pedal pulse. Motor and sensory intact. Capillary refill 3 seconds. No ulcers. Left lower extremity: Palpable femoral pulse, nonpalpable pedal pulse. Motor and sensory intact. Capillary refill 3 to 4 seconds. There is dependent of forefoot with erythema extending to the near ankle area and around the 5th toe, presence of 5th toe gangrene. ASSESSMENT AND PLAN: Bilateral lower extremity atherosclerosis of lower extremity gangrene: It seems that the patient has developed left lower extremity diabetic foot infection with 5th toe gangrene in light of what seems to be elevated troponins. At the moment the patient is being evaluated by our cardiology colleagues and will likely undergo intervention per their recommendations. Will await the findings from a cardiac standpoint and will schedule the patient for an angiogram in the next coming days. No urgent matter at this point. Will recommend for the patient to continue with the antibiotic management for now. Will plan to obtain bilateral lower extremity vein mapping to evaluate for possible interventions if needed. 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 Discussed findings, plans, and measurement of the patient and the family at bedside and they understand. Thank you for allowing us to participate in the care of your patient. Please call with any questions. Dictated By: Jarrett Zaragoza MD /eitan/deaconc /Document#: [id number]
--- NOTE | 2016-11-14 14:08 | CONS ---
Date/Time of Note Date/Time of Note DATE: 11/14/16 TIME: 14:06 Assessment/Plan Assessment/Plan Chief Complaint/Hosp Course Alert complaining of left lower extremity pain, looks comfortable, no fevers microbiology: All cultures negative Antibiotics: Luis Oropeza Physical examination: Well-developed well-nourished elderly man who is alert in no distress. Head atraumatic normocephalic sclera nonicteric bugle mucosa dry neck is supple chest rise symmetrical breath sounds clear heart S1-S2 abdomen soft bowel tones present, extremities with left foot erythema and gangrene of the toe Assessment: 1. Left foot cellulitis, fifth toe gangrene 2. Peripheral vascular disease 3. End-stage renal disease, hemodialysis dependent==> L AVF 4. Hypertension 5. Patchy opacification in the right lower lung per chest x-ray on admission questionable infiltrate Plan: Clinically stable, will keep on broad-spectrum antibiotics, follow podiatry and vascular surgery recommendations, pending vascular intervention Discussed with pt Problems: Consultation Date/Type/Reason Admit Date/Time Nov 12, 2016 at 07:20 Type of Consultation: ID Exam/Review of Systems Vital Signs Vitals Vital Signs Date Time Temp Pulse Resp B/P Pulse Ox O2 Delivery O2 Flow Rate FiO2 11/14/16 12:30 75 11/14/16 11:19 97.7 20 160/94 97 11/12/16 10:50 Room Air Intake and Output 11/13/16 11/13/16 11/14/16 15:00 23:00 07:00 Intake Total 369 ml 1420 ml 263 ml Output Total 4300 ml Balance -3931 ml 1420 ml 263 ml Results Result Diagram: 11/14/16 0536 11/14/16 0536 Results 24 hrs Laboratory Tests Test 11/13/16 17:28 11/14/16 01:15 11/14/16 05:36 11/14/16 12:50 Activated Partial Thromboplast Time 48.7 H 47.4 H 56.0 H 97.9 *H White Blood Count 4.0 L Red Blood Count 3.21 L Hemoglobin 9.2 L Hematocrit 28.5 L Mean Corpuscular Volume 88.8 Mean Corpuscular Hemoglobin 28.7 L Mean Corpuscular Hemoglobin Concent 32.3 Red Cell Distribution Width 16.5 H Platelet Count 172 Mean Platelet Volume 10.5 H Neutrophils % 64.4 Lymphocytes % 15.1 Monocytes % 15.6 H Eosinophils % 3.7 Basophils % 1.0 Nucleated Red Blood Cells % 0.0 Neutrophils # 2.6 Lymphocytes # 0.6 L Monocytes # 0.6 Eosinophils # 0.2 Basophils # 0.0 Nucleated Red Blood Cells # 0.0 Sodium Level 132 L Potassium Level 4.7 Chloride Level 92 L Carbon Dioxide Level 27 Anion Gap 18 H Blood Urea Nitrogen 49 #H Creatinine 6.98 H Glucose Level 81 Calcium Level 9.1 Random Vancomycin Level 6.6 Medications Medications Current Medications Amlodipine Besylate (Norvasc) 5 mg BID PO Last administered on 11/14/16 09:53 ; Admin Dose 5 MG; Start 11/12/16 at 11:30 Losartan Potassium (Cozaar) 25 mg DAILY PO Last administered on 11/14/16 09:53 ; Admin Dose 25 MG; Start 11/12/16 at 11:30 Nifedipine (Procardia Xl) 60 mg DAILY PO Last administered on 11/14/16 09:53; Admin Dose 60 MG; Start 11/12/16 at 11:30 Zolpidem Tartrate (Ambien) 5 mg QHS PRN PO INSOMNIA Last administered on 03:05; Admin Dose 5 MG; Start 11/12/16 at 11:30 Hydralazine HCl (Apresoline) 10 mg Q6H PRN IV SBP>170; Start 11/12/16 at 11:30 Bacitracin/ Polymyxin B Sulfate (Ak-Poly-Loren Oph Oint) 1 applic TID LEFT EYE Last administered on 11/14/16 12:23; Admin Dose 1 APPLIC; Start 11/12/16 at 13: 00 Morphine Sulfate (morphine) 2 mg Q4H PRN IV PAIN LEVEL 6-10; Start 11/12/16 at 14:00 Acetaminophen (Tylenol Tab) 650 mg Q4H PRN PO PAIN AND OR ELEVATED TEMP; Start 11/12/16 at 14:00 Atorvastatin Calcium 40 mg 40 mg HS PO Last administered on 11/13/16 21:30; Admin Dose 40 MG; Start 11/12/16 at 21:00 Heparin Sodium (Porcine) (Heparin 06568 Units/250 ml) 250 ml @ 11.5 mls/hr Q24H IV Last administered on 11/14/16 13:59; Admin Dose 14 MLS/HR; Start 11/12 at 17:30 Heparin Sodium (Porcine) (Heparin (1000 Units/ml)) PRN PRN IV PENDING LAB VALUE Last administered on 11/13/16 06:42; Admin Dose 4,000 UNIT; Start at 17:30 Aspirin (Aspirin) 81 mg DAILY PO Last administered on 11/14/16 09:53; Admin Dose 81 MG; Start 11/12/16 at 17:30 Metoprolol Tartrate 25 mg 25 mg TID PO Last administered on 11/14/16 12:22; Admin Dose 25 MG; Start 11/13/16 at 10:00 Piperacillin Sod/ Tazobactam Sod (Zosyn 2.25gm/ 50ml (Pmx)) 50 ml @ 100 mls/hr Q8 IVPB Last administered on 11/14/16 05:12; Admin Dose 100 MLS/HR; Start 04/20 at 22:00 SHITAL MCKEON NP Nov 14, 2016 14:08
--- NOTE | 2016-11-14 17:11 | CONS ---
Date/Time of Note Date/Time of Note DATE: 11/14/16 TIME: 17:09 Assessment/Plan Assessment/Plan Additional Assessment/Plan 1. Left foot cellulitis, fifth toe gangrene 2. Peripheral vascular disease 3. End-stage renal disease, hemodialysis dependent 4. Hypertension 5. Patchy opacification in the right lower lung per chest x-ray on admission questionable infiltrate Seen by Vascular and Cardiology Consultations reviewed HD ordered for tomorrow MWF schedule STACIE with HD Consultation Date/Type/Reason Admit Date/Time Nov 12, 2016 at 07:20 Type of Consultation: Renal 24 HR Interval Summary Free Text/Dictation No new complaints Exam/Review of Systems Vital Signs Vitals Vital Signs Date Time Temp Pulse Resp B/P Pulse Ox O2 Delivery O2 Flow Rate FiO2 11/14/16 16:40 75 11/14/16 16:09 98.6 18 117/60 98 11/12/16 10:50 Room Air Intake and Output 11/13/16 11/13/16 11/14/16 15:00 23:00 07:00 Intake Total 369 ml 1420 ml 263 ml Output Total 4300 ml Balance -3931 ml 1420 ml 263 ml Exam Constitutional: alert, No distress ENMT: mucosa pink and moist Respiratory: clear to auscultation, No labored breathing Cardiovascular: regular rate and rhythm, No edema Gastrointestinal: non-tender, soft Neurological: No lethargic Skin: No diaphoresis Results Result Diagram: 11/14/16 0536 11/14/16 0536 Results 24 hrs Laboratory Tests Test 11/13/16 17:28 11/14/16 01:15 11/14/16 05:36 11/14/16 12:50 Activated Partial Thromboplast Time 48.7 H 47.4 H 56.0 H 97.9 *H White Blood Count 4.0 L Red Blood Count 3.21 L Hemoglobin 9.2 L Hematocrit 28.5 L Mean Corpuscular Volume 88.8 Mean Corpuscular Hemoglobin 28.7 L Mean Corpuscular Hemoglobin Concent 32.3 Red Cell Distribution Width 16.5 H Platelet Count 172 Mean Platelet Volume 10.5 H Neutrophils % 64.4 Lymphocytes % 15.1 Monocytes % 15.6 H Eosinophils % 3.7 Basophils % 1.0 Nucleated Red Blood Cells % 0.0 Neutrophils # 2.6 Lymphocytes # 0.6 L Monocytes # 0.6 Eosinophils # 0.2 Basophils # 0.0 Nucleated Red Blood Cells # 0.0 Sodium Level 132 L Potassium Level 4.7 Chloride Level 92 L Carbon Dioxide Level 27 Anion Gap 18 H Blood Urea Nitrogen 49 #H Creatinine 6.98 H Glucose Level 81 Calcium Level 9.1 Random Vancomycin Level 6.6 Medications Medications Current Medications Amlodipine Besylate (Norvasc) 5 mg BID PO Last administered on 11/14/16 09:53 ; Admin Dose 5 MG; Start 11/12/16 at 11:30 Losartan Potassium (Cozaar) 25 mg DAILY PO Last administered on 11/14/16 09:53 ; Admin Dose 25 MG; Start 11/12/16 at 11:30 Nifedipine (Procardia Xl) 60 mg DAILY PO Last administered on 11/14/16 09:53; Admin Dose 60 MG; Start 11/12/16 at 11:30 Zolpidem Tartrate (Ambien) 5 mg QHS PRN PO INSOMNIA Last administered on 03:05; Admin Dose 5 MG; Start 11/12/16 at 11:30 Hydralazine HCl (Apresoline) 10 mg Q6H PRN IV SBP>170; Start 11/12/16 at 11:30 Bacitracin/ Polymyxin B Sulfate (Ak-Poly-Loren Oph Oint) 1 applic TID LEFT EYE Last administered on 11/14/16 12:23; Admin Dose 1 APPLIC; Start 11/12/16 at 13: 00 Morphine Sulfate (morphine) 2 mg Q4H PRN IV PAIN LEVEL 6-10; Start 11/12/16 at 14:00 Acetaminophen (Tylenol Tab) 650 mg Q4H PRN PO PAIN AND OR ELEVATED TEMP; Start 11/12/16 at 14:00 Atorvastatin Calcium 40 mg 40 mg HS PO Last administered on 11/13/16 21:30; Admin Dose 40 MG; Start 11/12/16 at 21:00 Heparin Sodium (Porcine) (Heparin 67065 Units/250 ml) 250 ml @ 11.5 mls/hr Q24H IV Last administered on 11/14/16 15:47; Admin Dose 14 MLS/HR; Start 11/12 at 17:30 Heparin Sodium (Porcine) (Heparin (1000 Units/ml)) PRN PRN IV PENDING LAB VALUE Last administered on 11/13/16 06:42; Admin Dose 4,000 UNIT; Start at 17:30 Aspirin (Aspirin) 81 mg DAILY PO Last administered on 11/14/16 09:53; Admin Dose 81 MG; Start 11/12/16 at 17:30 Metoprolol Tartrate 25 mg 25 mg TID PO Last administered on 11/14/16 12:22; Admin Dose 25 MG; Start 11/13/16 at 10:00 Piperacillin Sod/ Tazobactam Sod (Zosyn 2.25gm/ 50ml (Pmx)) 50 ml @ 100 mls/hr Q8 IVPB Last administered on 11/14/16 15:41; Admin Dose 100 MLS/HR; Start 04/20 at 22:00 PIPER FELIX MD Nov 14, 2016 17:10
--- NOTE | 2016-11-14 19:51 | PN ---
Date/Time of Note Date/Time of Note DATE: 11/14/16 TIME: 19:48 Assessment/Plan VTE Prophylaxis VTE Prophylaxis Intervention: other Lines/Catheters [facility] Saline Lock Urinary Cath still in place: No Assessment/Plan Assessment/Plan -NSTEMI- no chest pain at present - per in cardiology consultation. -Hypertension, continue patient's home blood pressure medication, hydralazine as needed for systolic blood pressure above 170. -Left fifth toe gangrene with cellulitis, continue antibiotics Dr. Tobias is asked to see patient in infection disease consultation is asked to see patient in podiatry consultation -Peripheral vascular disease, Dr. Zaragoza is asked to see patient in vascular surgery consultation. -End-stage renal disease, continue hemodialysis per nephrology Dr. Newby is following in nephrology consultation. Further recommendations based on clinical course. End of care discussed with Dr. French. Subjective 24 Hr Interval Summary Constitutional: improved Respiratory: no complaints Cardiovascular: no complaints Gastrointestinal: no complaints Genitourinary: no complaints Musculoskeletal: no complaints Exam/Review of Systems Vital Signs Vitals Vital Signs Date Time Temp Pulse Resp B/P Pulse Ox O2 Delivery O2 Flow Rate FiO2 11/14/16 19:44 97.6 75 18 136/61 91 11/12/16 10:50 Room Air Intake and Output 11/13/16 11/13/16 11/14/16 15:00 23:00 07:00 Intake Total 369 ml 1420 ml 263 ml Output Total 4300 ml Balance -3931 ml 1420 ml 263 ml Exam Constitutional: alert Psych: nl mood/affect Respiratory: clear to auscultation Cardiovascular: nl pulses, regular rate and rhythm Gastrointestinal: non-tender, soft Musculoskeletal: nl extremities to inspection Extremities: normal pulses Neurological: nl mental status, nl speech Results Result Diagram: 11/14/16 0536 11/14/16 0536 Results 24 hrs Laboratory Tests Test 11/14/16 01:15 11/14/16 05:36 11/14/16 12:50 Activated Partial Thromboplast Time 47.4 H 56.0 H 97.9 *H White Blood Count 4.0 L Red Blood Count 3.21 L Hemoglobin 9.2 L Hematocrit 28.5 L Mean Corpuscular Volume 88.8 Mean Corpuscular Hemoglobin 28.7 L Mean Corpuscular Hemoglobin Concent 32.3 Red Cell Distribution Width 16.5 H Platelet Count 172 Mean Platelet Volume 10.5 H Neutrophils % 64.4 Lymphocytes % 15.1 Monocytes % 15.6 H Eosinophils % 3.7 Basophils % 1.0 Nucleated Red Blood Cells % 0.0 Neutrophils # 2.6 Lymphocytes # 0.6 L Monocytes # 0.6 Eosinophils # 0.2 Basophils # 0.0 Nucleated Red Blood Cells # 0.0 Sodium Level 132 L Potassium Level 4.7 Chloride Level 92 L Carbon Dioxide Level 27 Anion Gap 18 H Blood Urea Nitrogen 49 #H Creatinine 6.98 H Glucose Level 81 Calcium Level 9.1 Random Vancomycin Level 6.6 Medications Medications Current Medications Amlodipine Besylate (Norvasc) 5 mg BID PO Last administered on 11/14/16 09:53 ; Admin Dose 5 MG; Start 11/12/16 at 11:30 Losartan Potassium (Cozaar) 25 mg DAILY PO Last administered on 11/14/16 09:53 ; Admin Dose 25 MG; Start 11/12/16 at 11:30 Nifedipine (Procardia Xl) 60 mg DAILY PO Last administered on 11/14/16 09:53; Admin Dose 60 MG; Start 11/12/16 at 11:30 Zolpidem Tartrate (Ambien) 5 mg QHS PRN PO INSOMNIA Last administered on 03:05; Admin Dose 5 MG; Start 11/12/16 at 11:30 Hydralazine HCl (Apresoline) 10 mg Q6H PRN IV SBP>170; Start 11/12/16 at 11:30 Bacitracin/ Polymyxin B Sulfate (Ak-Poly-Loren Oph Oint) 1 applic TID LEFT EYE Last administered on 11/14/16 12:23; Admin Dose 1 APPLIC; Start 11/12/16 at 13: 00 Morphine Sulfate (morphine) 2 mg Q4H PRN IV PAIN LEVEL 6-10; Start 11/12/16 at 14:00 Acetaminophen (Tylenol Tab) 650 mg Q4H PRN PO PAIN AND OR ELEVATED TEMP; Start 11/12/16 at 14:00 Atorvastatin Calcium 40 mg 40 mg HS PO Last administered on 11/13/16 21:30; Admin Dose 40 MG; Start 11/12/16 at 21:00 Heparin Sodium (Porcine) (Heparin 68936 Units/250 ml) 250 ml @ 11.5 mls/hr Q24H IV Last administered on 11/14/16 15:47; Admin Dose 14 MLS/HR; Start 11/12 at 17:30 Heparin Sodium (Porcine) (Heparin (1000 Units/ml)) PRN PRN IV PENDING LAB VALUE Last administered on 11/13/16 06:42; Admin Dose 4,000 UNIT; Start at 17:30 Aspirin (Aspirin) 81 mg DAILY PO Last administered on 11/14/16 09:53; Admin Dose 81 MG; Start 11/12/16 at 17:30 Metoprolol Tartrate 25 mg 25 mg TID PO Last administered on 11/14/16 12:22; Admin Dose 25 MG; Start 11/13/16 at 10:00 Piperacillin Sod/ Tazobactam Sod (Zosyn 2.25gm/ 50ml (Pmx)) 50 ml @ 100 mls/hr Q8 IVPB Last administered on 11/14/16 15:41; Admin Dose 100 MLS/HR; Start 04/20 at 22:00 Epoetin Jorge Luis (Epogen (Esrd)) 3,000 units MoWeFr@17 SC ; Start 11/15/16 at 17:00 IHSAN SULLIVAN Nov 14, 2016 19:50
[2016-11-14] MEDS: ATORVASTATIN 40 MG TAB PO SCH (20:50)
[2016-11-15] VITALS (35 sets, daily range): BP systolic 105–179; BP diastolic 50–85; PULSE 72–78; RESP 12–22
[2016-11-15] MEDS: hydrALAzine 20 MG INJ IV PRN ×2 (04:07→20:58)
[2016-11-15] MEDS: PIPER-TAZO 2.25 GM (PMX) 50 ML IVPB SCH ×3 (05:25→22:09)
[2016-11-15 07:57] LABS: ADD SCAN DIFF NO
[2016-11-15 07:59] LABS: BASOPHIL # 0.1 10^3/ul (0.0-0.1); BASOPHILS % 1.3 % (0.0-2.0); EOSINOPHILS # 0.2 10^3/ul (0.0-0.5); EOSINOPHILS % 4.5 % (0.0-7.0); HEMATOCRIT 28.6 % (42.0-52.0); HEMOGLOBIN 9.2 g/dl (14.0-18.0); LYMPHOCYTES # 0.7 10^3/ul (0.8-2.9); LYMPHOCYTES % 14.5 % (15.0-51.0); MEAN CORPUSCULAR HEMOGLOBIN 28.1 pg (29.0-33.0); MEAN CORPUSCULAR HGB CONC 32.2 g/dl (32.0-37.0); MEAN CORPUSCULAR VOLUME 87.5 fl (82.0-101.0); MONOCYTE # 0.8 10^3/ul (0.3-0.9); MONOCYTES % 17.9 % (0.0-11.0); NEUTROPHIL # 2.8 10^3/ul (1.6-7.5); NEUTROPHILS % 61.6 % (39.0-77.0); PLATELET COUNT 173 10^3/UL (140-415); RED BLOOD COUNT 3.27 10^6/ul (4.70-6.10); RED CELL DISTRIBUTION WIDTH 16.4 % (11.5-14.5); WHITE BLOOD COUNT 4.5 10^3/ul (4.8-10.8)
[2016-11-15] MEDS: SEVELAMER 800 MG TAB PO SCH ×3 (08:00→21:50)
[2016-11-15 08:41] LABS: CALCIUM 9.3 mg/dl (8.4-10.2); CREATININE 9.09 mg/dl (0.61-1.24); POTASSIUM 5.1 mmol/L (3.5-5.1)
[2016-11-15] MEDS: NIFEdipine (XL) 60 MG TAB PO SCH (09:00)
[2016-11-15] MEDS: LOSARTAN 25 MG TAB PO SCH (09:00)
[2016-11-15] MEDS: AMLODIPINE 5 MG TAB PO SCH ×2 (09:00→20:24)
[2016-11-15] MEDS: ASPIRIN 81 MG TAB PO SCH (09:00)
[2016-11-15] MEDS: METOPROLOL 25 MG TAB PO SCH ×3 (09:00→20:24)
[2016-11-15] MEDS: BACITRACIN/POLYMYX 3.5 GM OPH OINT LEFT EYE SCH ×3 (09:36→21:50)
--- NOTE | 2016-11-15 15:16 | CONS ---
Date/Time of Note Date/Time of Note DATE: 11/15/16 TIME: 15:15 Assessment/Plan Assessment/Plan Chief Complaint/Hosp Course Alert, looks comfortable, no fevers microbiology: All cultures negative Antibiotics: Luis Oropeza Physical examination: Well-developed well-nourished elderly man who is alert in no distress. Head atraumatic normocephalic sclera nonicteric bugle mucosa dry neck is supple chest rise symmetrical breath sounds clear heart S1-S2 abdomen soft bowel tones present, extremities with left foot erythema and gangrene of the toe Assessment: 1. Left foot cellulitis, fifth toe gangrene 2. Peripheral vascular disease 3. End-stage renal disease, hemodialysis dependent==> L AVF 4. Hypertension 5. Patchy opacification in the right lower lung per chest x-ray on admission questionable infiltrate Plan: Clinically stable, continue on broad-spectrum antibiotics, follow podiatry and vascular surgery recommendations, pending vascular intervention Discussed with pt Problems: Consultation Date/Type/Reason Admit Date/Time Nov 12, 2016 at 07:20 Type of Consultation: id Exam/Review of Systems Vital Signs Vitals Vital Signs Date Time Temp Pulse Resp B/P Pulse Ox O2 Delivery O2 Flow Rate FiO2 11/15/16 14:10 74 11/15/16 11:54 97.9 18 176/74 97 11/12/16 10:50 Room Air Intake and Output 11/14/16 11/14/16 11/15/16 15:00 23:00 07:00 Intake Total 400 ml 100 ml Balance 400 ml 100 ml Results Result Diagram: 11/15/16 0730 11/15/16 0730 Results 24 hrs Laboratory Tests Test 11/15/16 07:30 White Blood Count 4.5 L Red Blood Count 3.27 L Hemoglobin 9.2 L Hematocrit 28.6 L Mean Corpuscular Volume 87.5 Mean Corpuscular Hemoglobin 28.1 L Mean Corpuscular Hemoglobin Concent 32.2 Red Cell Distribution Width 16.4 H Platelet Count 173 Mean Platelet Volume 10.0 Neutrophils % 61.6 Lymphocytes % 14.5 L Monocytes % 17.9 H Eosinophils % 4.5 Basophils % 1.3 Nucleated Red Blood Cells % 0.0 Neutrophils # 2.8 Lymphocytes # 0.7 L Monocytes # 0.8 Eosinophils # 0.2 Basophils # 0.1 Nucleated Red Blood Cells # 0.0 Sodium Level 131 L Potassium Level 5.1 Chloride Level 90 L Carbon Dioxide Level 23 Anion Gap 23 H Blood Urea Nitrogen 67 H Creatinine 9.09 #H Glucose Level 77 Calcium Level 9.3 Medications Medications Current Medications Amlodipine Besylate (Norvasc) 5 mg BID PO Last administered on 11/14/16 20:51 ; Admin Dose 5 MG; Start 11/12/16 at 11:30 Losartan Potassium (Cozaar) 25 mg DAILY PO Last administered on 11/14/16 09:53 ; Admin Dose 25 MG; Start 11/12/16 at 11:30 Nifedipine (Procardia Xl) 60 mg DAILY PO Last administered on 11/14/16 09:53; Admin Dose 60 MG; Start 11/12/16 at 11:30 Zolpidem Tartrate (Ambien) 5 mg QHS PRN PO INSOMNIA Last administered on 03:05; Admin Dose 5 MG; Start 11/12/16 at 11:30 Hydralazine HCl (Apresoline) 10 mg Q6H PRN IV SBP>170 Last administered on 11/15 04:07; Admin Dose 10 MG; Start 11/12/16 at 11:30 Bacitracin/ Polymyxin B Sulfate (Ak-Poly-Loren Oph Oint) 1 applic TID LEFT EYE Last administered on 11/15/16 12:03; Admin Dose 1 APPLIC; Start 11/12/16 at 13: 00 Morphine Sulfate (morphine) 2 mg Q4H PRN IV PAIN LEVEL 6-10; Start 11/12/16 at 14:00 Acetaminophen (Tylenol Tab) 650 mg Q4H PRN PO PAIN AND OR ELEVATED TEMP; Start 11/12/16 at 14:00 Atorvastatin Calcium (Lipitor) 40 mg HS PO Last administered on 11/14/16 20:50 ; Admin Dose 40 MG; Start 11/12/16 at 21:00 Heparin Sodium (Porcine) (Heparin (1000 Units/ml)) PRN PRN IV PENDING LAB VALUE Last administered on 11/13/16 06:42; Admin Dose 4,000 UNIT; Start at 17:30 Aspirin (Aspirin) 81 mg DAILY PO Last administered on 11/14/16 09:53; Admin Dose 81 MG; Start 11/12/16 at 17:30 Metoprolol Tartrate 25 mg 25 mg TID PO Last administered on 11/14/16 20:51; Admin Dose 25 MG; Start 11/13/16 at 10:00 Piperacillin Sod/ Tazobactam Sod (Zosyn 2.25gm/ 50ml (Pmx)) 50 ml @ 100 mls/hr Q8 IVPB Last administered on 11/15/16 05:25; Admin Dose 100 MLS/HR; Start 04/20 at 22:00 Epoetin Jorge Luis (Epogen (Esrd)) 3,000 units MoWeFr@17 SC ; Start 11/15/16 at 17:00 Miscellaneous Information (*Rx Drug Level Order Reminder*) VANCOMYCIN RANDOM LEVEL 7... ONCE ONCE XX ; Start 11/16/16 at 05:00; Stop 11/16/16 at 05:01 SHITAL MCKEON NP Nov 15, 2016 15:15
--- NOTE | 2016-11-15 16:34 | CONS ---
Date/Time of Note Date/Time of Note DATE: 11/15/16 TIME: 16:33 Assessment/Plan Assessment/Plan Additional Assessment/Plan 1. Left foot cellulitis, fifth toe gangrene 2. Peripheral vascular disease 3. End-stage renal disease, hemodialysis dependent 4. Hypertension 5. Patchy opacification in the right lower lung per chest x-ray on admission questionable infiltrate Seen by Vascular and Cardiology Consultations reviewed S/p HD MWF schedule STACIE with HD Consultation Date/Type/Reason Admit Date/Time Nov 12, 2016 at 07:20 Type of Consultation: Renal 24 HR Interval Summary Free Text/Dictation No new complaints, S/p HD Exam/Review of Systems Vital Signs Vitals Vital Signs Date Time Temp Pulse Resp B/P Pulse Ox O2 Delivery O2 Flow Rate FiO2 11/15/16 16:31 98.3 72 16 172/77 95 11/12/16 10:50 Room Air Intake and Output 11/14/16 11/14/16 11/15/16 15:00 23:00 07:00 Intake Total 400 ml 100 ml Balance 400 ml 100 ml Exam Constitutional: No distress ENMT: mucosa pink and moist Neck: No jvd Respiratory: clear to auscultation Cardiovascular: regular rate and rhythm, No edema Gastrointestinal: non-tender, soft Neurological: nl speech, No confused, No lethargic Results Result Diagram: 11/15/1672911/15/1630 Results 24 hrs Laboratory Tests Test 11/15/16 07:30 White Blood Count 4.5 L Red Blood Count 3.27 L Hemoglobin 9.2 L Hematocrit 28.6 L Mean Corpuscular Volume 87.5 Mean Corpuscular Hemoglobin 28.1 L Mean Corpuscular Hemoglobin Concent 32.2 Red Cell Distribution Width 16.4 H Platelet Count 173 Mean Platelet Volume 10.0 Neutrophils % 61.6 Lymphocytes % 14.5 L Monocytes % 17.9 H Eosinophils % 4.5 Basophils % 1.3 Nucleated Red Blood Cells % 0.0 Neutrophils # 2.8 Lymphocytes # 0.7 L Monocytes # 0.8 Eosinophils # 0.2 Basophils # 0.1 Nucleated Red Blood Cells # 0.0 Sodium Level 131 L Potassium Level 5.1 Chloride Level 90 L Carbon Dioxide Level 23 Anion Gap 23 H Blood Urea Nitrogen 67 H Creatinine 9.09 #H Glucose Level 77 Calcium Level 9.3 Medications Medications Current Medications Amlodipine Besylate (Norvasc) 5 mg BID PO Last administered on 11/14/16 20:51 ; Admin Dose 5 MG; Start 11/12/16 at 11:30 Losartan Potassium (Cozaar) 25 mg DAILY PO Last administered on 11/14/16 09:53 ; Admin Dose 25 MG; Start 11/12/16 at 11:30 Nifedipine (Procardia Xl) 60 mg DAILY PO Last administered on 11/14/16 09:53; Admin Dose 60 MG; Start 11/12/16 at 11:30 Zolpidem Tartrate (Ambien) 5 mg QHS PRN PO INSOMNIA Last administered on 03:05; Admin Dose 5 MG; Start 11/12/16 at 11:30 Hydralazine HCl (Apresoline) 10 mg Q6H PRN IV SBP>170 Last administered on 11/15 04:07; Admin Dose 10 MG; Start 11/12/16 at 11:30 Bacitracin/ Polymyxin B Sulfate (Ak-Poly-Loren Oph Oint) 1 applic TID LEFT EYE Last administered on 11/15/16 12:03; Admin Dose 1 APPLIC; Start 11/12/16 at 13: 00 Morphine Sulfate (morphine) 2 mg Q4H PRN IV PAIN LEVEL 6-10; Start 11/12/16 at 14:00 Acetaminophen (Tylenol Tab) 650 mg Q4H PRN PO PAIN AND OR ELEVATED TEMP; Start 11/12/16 at 14:00 Atorvastatin Calcium (Lipitor) 40 mg HS PO Last administered on 11/14/16 20:50 ; Admin Dose 40 MG; Start 11/12/16 at 21:00 Heparin Sodium (Porcine) (Heparin (1000 Units/ml)) PRN PRN IV PENDING LAB VALUE Last administered on 11/13/16 06:42; Admin Dose 4,000 UNIT; Start at 17:30 Aspirin (Aspirin) 81 mg DAILY PO Last administered on 11/14/16 09:53; Admin Dose 81 MG; Start 11/12/16 at 17:30 Metoprolol Tartrate 25 mg 25 mg TID PO Last administered on 11/14/16 20:51; Admin Dose 25 MG; Start 11/13/16 at 10:00 Piperacillin Sod/ Tazobactam Sod (Zosyn 2.25gm/ 50ml (Pmx)) 50 ml @ 100 mls/hr Q8 IVPB Last administered on 11/15/16t 05:25; Admin Dose 100 MLS/HR; Start 04/20 at 22:00 Epoetin Jorge Luis (Epogen (Esrd)) 3,000 units MoWeFr@17 SC ; Start 11/15/16 at 17:00 Miscellaneous Information (*Rx Drug Level Order Reminder*) VANCOMYCIN RANDOM LEVEL 7... ONCE ONCE XX ; Start 11/16/16 at 05:00; Stop 11/16/16 at 05:01 PIPER FELIX MD Nov 15, 2016 16:34
[2016-11-15] MEDS: EPOETIN 3000 UNITS/1 ML INJ (ESRD) SC SCH (17:00)
--- NOTE | 2016-11-15 17:23 | PN ---
Date/Time of Note Date/Time of Note DATE: 11/15/16 TIME: 17:21 Assessment/Plan VTE Prophylaxis VTE Prophylaxis Intervention: heparin Lines/Catheters [facility] Saline Lock Urinary Cath still in place: No Assessment/Plan Chief Complaint/Hosp Course Pt is taken to OR for angio, RN reported BP fluctuation during and after HD. Assessment/Plan -NSTEMI, Dr. Pike is following in cardiology consultation. -Left fifth toe gangrene with cellulitis, continue antibiotics. Dr. Tobias is following in infection disease consultation. is following in podiatry consultation -Peripheral vascular disease, Dr. Zaragoza is following in vascular surgery consultation. -Hypertension, continue patient's home blood pressure medication, hydralazine as needed for systolic blood pressure above 170. -End-stage renal disease, continue hemodialysis per nephrology Dr. Newby is following in nephrology consultation. Further recommendations based on clinical course. End of care discussed with Dr. French. Problems: Exam/Review of Systems Vital Signs Vitals Vital Signs Date Time Temp Pulse Resp B/P Pulse Ox O2 Delivery O2 Flow Rate FiO2 11/15/16 16:31 98.3 72 16 172/77 95 11/12/16 10:50 Room Air Intake and Output 11/14/16 11/14/16 11/15/16 15:00 23:00 07:00 Intake Total 400 ml 100 ml Balance 400 ml 100 ml Results Result Diagram: 11/15/16 0730 11/15/16 0730 Results 24 hrs Laboratory Tests Test 11/15/16 07:30 White Blood Count 4.5 L Red Blood Count 3.27 L Hemoglobin 9.2 L Hematocrit 28.6 L Mean Corpuscular Volume 87.5 Mean Corpuscular Hemoglobin 28.1 L Mean Corpuscular Hemoglobin Concent 32.2 Red Cell Distribution Width 16.4 H Platelet Count 173 Mean Platelet Volume 10.0 Neutrophils % 61.6 Lymphocytes % 14.5 L Monocytes % 17.9 H Eosinophils % 4.5 Basophils % 1.3 Nucleated Red Blood Cells % 0.0 Neutrophils # 2.8 Lymphocytes # 0.7 L Monocytes # 0.8 Eosinophils # 0.2 Basophils # 0.1 Nucleated Red Blood Cells # 0.0 Sodium Level 131 L Potassium Level 5.1 Chloride Level 90 L Carbon Dioxide Level 23 Anion Gap 23 H Blood Urea Nitrogen 67 H Creatinine 9.09 #H Glucose Level 77 Calcium Level 9.3 Medications Medications Current Medications Amlodipine Besylate (Norvasc) 5 mg BID PO Last administered on 11/14/16 20:51 ; Admin Dose 5 MG; Start 11/12/16 at 11:30 Losartan Potassium (Cozaar) 25 mg DAILY PO Last administered on 11/14/16 09:53 ; Admin Dose 25 MG; Start 11/12/16 at 11:30 Nifedipine (Procardia Xl) 60 mg DAILY PO Last administered on 11/14/16 09:53; Admin Dose 60 MG; Start 11/12/16 at 11:30 Zolpidem Tartrate (Ambien) 5 mg QHS PRN PO INSOMNIA Last administered on 03:05; Admin Dose 5 MG; Start 11/12/16 at 11:30 Hydralazine HCl (Apresoline) 10 mg Q6H PRN IV SBP>170 Last administered on 11/15 04:07; Admin Dose 10 MG; Start 11/12/16 at 11:30 Bacitracin/ Polymyxin B Sulfate (Ak-Poly-Loren Oph Oint) 1 applic TID LEFT EYE Last administered on 11/15/16 12:03; Admin Dose 1 APPLIC; Start 11/12/16 at 13: 00 Morphine Sulfate (morphine) 2 mg Q4H PRN IV PAIN LEVEL 6-10; Start 11/12/16 at 14:00 Acetaminophen (Tylenol Tab) 650 mg Q4H PRN PO PAIN AND OR ELEVATED TEMP; Start 11/12/16 at 14:00 Atorvastatin Calcium (Lipitor) 40 mg HS PO Last administered on 11/14/16 20:50 ; Admin Dose 40 MG; Start 11/12/16 at 21:00 Heparin Sodium (Porcine) (Heparin (1000 Units/ml)) PRN PRN IV PENDING LAB VALUE Last administered on 11/13/16 06:42; Admin Dose 4,000 UNIT; Start at 17:30 Aspirin (Aspirin) 81 mg DAILY PO Last administered on 11/14/16 09:53; Admin Dose 81 MG; Start 11/12/16 at 17:30 Metoprolol Tartrate 25 mg 25 mg TID PO Last administered on 11/14/16 20:51; Admin Dose 25 MG; Start 11/13/16 at 10:00 Piperacillin Sod/ Tazobactam Sod (Zosyn 2.25gm/ 50ml (Pmx)) 50 ml @ 100 mls/hr Q8 IVPB Last administered on 11/15/16 14:00; Admin Dose 100 MLS/HR; Start 04/20 at 22:00 Epoetin Jorge Luis (Epogen (Esrd)) 3,000 units MoWeFr@17 SC ; Start 11/15/16 at 17:00 Miscellaneous Information (*Rx Drug Level Order Reminder*) VANCOMYCIN RANDOM LEVEL 7... ONCE ONCE XX ; Start 11/16/16 at 05:00; Stop 11/16/16 at 05:01 VIV KING Nov 15, 2016 17:23
[2016-11-15] MEDS ORDERED: FENTAnyl 50 MCG/ML VIAL ONE (17:39)
[2016-11-15] MEDS ORDERED: LIDOCAINE 1% (MDV) 20 ML INJ ONE (17:39)
[2016-11-15] MEDS ORDERED: IODIXANOL LOCM 100 ML BTL ONE (17:39)
[2016-11-15] MEDS ORDERED: MIDAZOLAM 1 MG/ML 2 ML INJ ONE (17:39)
[2016-11-15] MEDS ORDERED: SOD CHLORIDE 0.9% 500 ML ONE (17:40)
[2016-11-15] MEDS ORDERED: hydrALAzine 20 MG INJ ONE (18:27)
[2016-11-15] MEDS ORDERED: HEPARIN 1000 UNITS/ML 10 ML INJ ONE (18:37)
[2016-11-15] MEDS: ATORVASTATIN 40 MG TAB PO SCH (20:24)
[2016-11-15] MEDS: hydrALAzine 20 MG INJ IV ONE ×2 (20:55→21:46)
[2016-11-15] MEDS: morphine 2 MG INJ IV PRN (21:54)
[2016-11-15] MEDS: ZOLPIDEM 5 MG TAB PO PRN (23:39)
[2016-11-16] VITALS (11 sets, daily range): BP systolic 96–179; BP diastolic 52–79; PULSE 75; RESP 17–20
[2016-11-16] MEDS: PIPER-TAZO 2.25 GM (PMX) 50 ML IVPB SCH ×3 (05:34→23:24)
[2016-11-16] MEDS: BACITRACIN/POLYMYX 3.5 GM OPH OINT LEFT EYE SCH ×3 (08:04→20:55)
[2016-11-16] MEDS: ASPIRIN 81 MG TAB PO SCH (08:04)
[2016-11-16] MEDS: METOPROLOL 25 MG TAB PO SCH ×3 (08:05→20:55)
[2016-11-16] MEDS: SEVELAMER 800 MG TAB PO SCH ×3 (08:05→17:33)
[2016-11-16] MEDS: AMLODIPINE 5 MG TAB PO SCH ×2 (08:05→20:55)
[2016-11-16] MEDS: NIFEdipine (XL) 60 MG TAB PO SCH (08:05)
[2016-11-16] MEDS: LOSARTAN 25 MG TAB PO SCH (08:06)
--- NOTE | 2016-11-16 09:31 | PN ---
Date/Time of Note Date/Time of Note DATE: 11/16/16 TIME: 09:29 Assessment/Plan VTE Prophylaxis VTE Prophylaxis Intervention: other Assessment/Plan Assessment/Plan Left foot cellulitis, fifth toe gangrene 2. Peripheral vascular disease 3. End-stage renal disease, hemodialysis dependent 4. Hypertension 5. Patchy opacification in the right lower lung per chest x-ray on admission questionable infiltrate Seen by Vascular and Cardiology Consultations reviewed S/p HD MWF schedule STACIE with HD [id number] no change hd per plan Exam/Review of Systems Vital Signs Vitals Vital Signs Date Time Temp Pulse Resp B/P Pulse Ox O2 Delivery O2 Flow Rate FiO2 11/16/16 08:22 98.3 75 17 179/76 98 11/15/16 21:03 Room Air 11/15/16 20:58 2.0 Intake and Output 11/15/16 11/15/16 11/16/16 15:00 23:00 07:00 Intake Total 500 ml 480 ml Output Total 2500 ml Balance -2000 ml 480 ml Exam Constitutional: alert, oriented, well developed Psych: no complaints Head: normocephalic Eyes: nl conjunctiva ENMT: nl external ears & nose Neck: non-tender, supple Respiratory: clear to auscultation, normal air movement Cardiovascular: nl pulses, regular rate and rhythm Gastrointestinal: nl liver, spleen, non-tender, soft Results Result Diagram: 11/15/1672911/15/1630 Results 24 hrs Laboratory Tests Test 11/16/16 06:10 Random Vancomycin Level 13.5 Medications Medications Current Medications Amlodipine Besylate (Norvasc) 5 mg BID PO Last administered on 11/16/16 08:05 ; Admin Dose 5 MG; Start 11/12/16 at 11:30 Losartan Potassium (Cozaar) 25 mg DAILY PO Last administered on 11/16/16 08:06 ; Admin Dose 25 MG; Start 11/12/16 at 11:30 Nifedipine (Procardia Xl) 60 mg DAILY PO Last administered on 11/16/16 08:05; Admin Dose 60 MG; Start 11/12/16 at 11:30 Zolpidem Tartrate (Ambien) 5 mg QHS PRN PO INSOMNIA Last administered on 23:39; Admin Dose 5 MG; Start 11/12/16 at 11:30 Hydralazine HCl (Apresoline) 10 mg Q6H PRN IV SBP>170 Last administered on 11/15 20:58; Admin Dose 10 MG; Start 11/12/16 at 11:30 Bacitracin/ Polymyxin B Sulfate (Ak-Poly-Loren Oph Oint) 1 applic TID LEFT EYE Last administered on 11/16/16 08:04; Admin Dose 1 APPLIC; Start 11/12/16 at 13: 00 Morphine Sulfate (morphine) 2 mg Q4H PRN IV PAIN LEVEL 6-10 Last administered on 11/15/16 21:54; Admin Dose 2 MG; Start 11/12/16 at 14:00 Acetaminophen (Tylenol Tab) 650 mg Q4H PRN PO PAIN AND OR ELEVATED TEMP; Start 11/12/16 at 14:00 Atorvastatin Calcium (Lipitor) 40 mg HS PO Last administered on 11/15/16 20:24 ; Admin Dose 40 MG; Start 11/12/16 at 21:00 Heparin Sodium (Porcine) (Heparin (1000 Units/ml)) PRN PRN IV PENDING LAB VALUE Last administered on 11/13/16 06:42; Admin Dose 4,000 UNIT; Start at 17:30 Aspirin (Aspirin) 81 mg DAILY PO Last administered on 11/16/16 08:04; Admin Dose 81 MG; Start 11/12/16 at 17:30 Metoprolol Tartrate 25 mg 25 mg TID PO Last administered on 11/16/16 08:05; Admin Dose 25 MG; Start 11/13/16 at 10:00 Piperacillin Sod/ Tazobactam Sod (Zosyn 2.25gm/ 50ml (Pmx)) 50 ml @ 100 mls/hr Q8 IVPB Last administered on 11/16/16 05:34; Admin Dose 100 MLS/HR; Start 04/20 at 22:00 Epoetin Jorge Luis (Epogen (Esrd)) 3,000 units MoWeFr@17 SC ; Start 11/15/16 at 17:00 Ondansetron HCl (Zofran Inj) 4 mg Q4H PRN IV NAUSEA AND/OR VOMITING; Start at 19:30 RENÉE KENNEDY MD Nov 16, 2016 09:31
[2016-11-16] MEDS ORDERED: VANCOMYCIN 1 GM in NS 250 ML IVPB SCH (12:00)
--- NOTE | 2016-11-16 19:33 | PN ---
Date/Time of Note Date/Time of Note DATE: 11/16/16 TIME: 19:31 Assessment/Plan Assessment/Plan Assessment/Plan -NSTEMI, Dr. Pike is following in cardiology consultation. -Left fifth toe gangrene with cellulitis, continue antibiotics. Dr. Tobias is following in infection disease consultation. is following in podiatry consultation -Peripheral vascular disease, Dr. Zaragoza is following in vascular surgery consultation. -Hypertension, continue patient's home blood pressure medication, hydralazine as needed for systolic blood pressure above 170. -End-stage renal disease, continue hemodialysis per nephrology Dr. Newby is following in nephrology consultation. Further recommendations based on clinical course. End of care discussed with Dr. French. Subjective 24 Hr Interval Summary Respiratory: no complaints Cardiovascular: no complaints Gastrointestinal: no complaints Genitourinary: no complaints Musculoskeletal: no complaints Exam/Review of Systems Vital Signs Vitals Vital Signs Date Time Temp Pulse Resp B/P Pulse Ox O2 Delivery O2 Flow Rate FiO2 11/16/16 16:51 97.9 75 17 114/58 96 11/15/16 21:03 Room Air 11/15/16 20:58 2.0 Intake and Output 11/15/16 11/15/16 11/16/16 15:00 23:00 07:00 Intake Total 500 ml 480 ml Output Total 2500 ml Balance -2000 ml 480 ml Exam Constitutional: alert, oriented, well developed Respiratory: clear to auscultation, normal air movement Cardiovascular: nl pulses, regular rate and rhythm Gastrointestinal: non-tender, soft Musculoskeletal: nl extremities to inspection Neurological: nl mental status, nl speech Results Result Diagram: 11/15/1630 11/15/16 0730 Results 24 hrs Laboratory Tests Test 11/16/16 06:10 Random Vancomycin Level 13.5 Medications Medications Current Medications Amlodipine Besylate (Norvasc) 5 mg BID PO Last administered on 11/16/16 08:05 ; Admin Dose 5 MG; Start 11/12/16 at 11:30 Losartan Potassium (Cozaar) 25 mg DAILY PO Last administered on 11/16/16 08:06 ; Admin Dose 25 MG; Start 11/12/16 at 11:30 Nifedipine (Procardia Xl) 60 mg DAILY PO Last administered on 11/16/16 08:05; Admin Dose 60 MG; Start 11/12/16 at 11:30 Zolpidem Tartrate (Ambien) 5 mg QHS PRN PO INSOMNIA Last administered on 23:39; Admin Dose 5 MG; Start 11/12/16 at 11:30 Hydralazine HCl (Apresoline) 10 mg Q6H PRN IV SBP>170 Last administered on 11/15 20:58; Admin Dose 10 MG; Start 11/12/16 at 11:30 Bacitracin/ Polymyxin B Sulfate (Ak-Poly-Loren Oph Oint) 1 applic TID LEFT EYE Last administered on 11/16/16 08:04; Admin Dose 1 APPLIC; Start 11/12/16 at 13: 00 Morphine Sulfate (morphine) 2 mg Q4H PRN IV PAIN LEVEL 6-10 Last administered on 11/15/16 21:54; Admin Dose 2 MG; Start 11/12/16 at 14:00 Acetaminophen (Tylenol Tab) 650 mg Q4H PRN PO PAIN AND OR ELEVATED TEMP; Start 11/12/16 at 14:00 Atorvastatin Calcium (Lipitor) 40 mg HS PO Last administered on 11/15/16 20:24 ; Admin Dose 40 MG; Start 11/12/16 at 21:00 Heparin Sodium (Porcine) (Heparin (1000 Units/ml)) PRN PRN IV PENDING LAB VALUE Last administered on 11/13/16 06:42; Admin Dose 4,000 UNIT; Start at 17:30 Aspirin (Aspirin) 81 mg DAILY PO Last administered on 11/16/16 08:04; Admin Dose 81 MG; Start 11/12/16 at 17:30 Metoprolol Tartrate 25 mg 25 mg TID PO Last administered on 11/16/16 08:05; Admin Dose 25 MG; Start 11/13/16 at 10:00 Piperacillin Sod/ Tazobactam Sod (Zosyn 2.25gm/ 50ml (Pmx)) 50 ml @ 100 mls/hr Q8 IVPB Last administered on 11/16/16 14:12; Admin Dose 100 MLS/HR; Start 04/20 at 22:00 Epoetin Jorge Luis (Epogen (Esrd)) 3,000 units MoWeFr@17 SC ; Start 11/15/16 at 17:00 Ondansetron HCl 4 mg 4 mg Q4H PRN IV NAUSEA AND/OR VOMITING; Start 11/15/16 at 19:30 Vancomycin HCl (Vancocin) 250 ml @ 125 mls/hr 12 IVPB Last administered on t 12:29; Admin Dose 125 MLS/HR; Start 11/16/16 at 12:00; Stop 11/16/16 at 23:00 IHSAN SULLIVAN Nov 16, 2016 19:33
--- NOTE | 2016-11-16 20:28 | CONS ---
Date/Time of Note Date/Time of Note DATE: 11/16/16 TIME: 20:23 Assessment/Plan Assessment/Plan Chief Complaint/Hosp Course ID PROGRESS NOTE CURRENT ABX=> Vanco IV + Zosyn 24H Interval Summary * Clinically stable, no fevers, NAD, no new issues, no complaints offered, resting comfortably * Microbiology: All cultures negative Physical examination: Well-developed well-nourished elderly man who is alert in no distress. Head atraumatic normocephalic sclera nonicteric, mucosa dry neck is supple chest rise symmetrical breath sounds clear heart S1-S2 abdomen soft bowel tones present, extremities with left foot erythema and gangrene of the toe ID ASSESSMENT 1. Left foot cellulitis, fifth toe gangrene 2. Peripheral vascular disease 3. End-stage renal disease, hemodialysis dependent==> L AVF 4. Hypertension 5. Patchy opacification in the right lower lung per chest x-ray on admission questionable infiltrate CURRENT ABX=> Vanco IV + Zosyn ID RECOMMENDATIONS/Plan Plan: Clinically stable, continue on broad-spectrum antibiotics, follow podiatry and vascular surgery recommendations, pending vascular intervention . Problems: Consultation Date/Type/Reason Admit Date/Time Nov 12, 2016 at 07:20 Initial Consult Date 11/12/16 Type of Consultation: ID Exam/Review of Systems Vital Signs Vitals Vital Signs Date Time Temp Pulse Resp B/P Pulse Ox O2 Delivery O2 Flow Rate FiO2 11/16/16 19:50 98.9 74 20 150/74 96 11/15/16 21:03 Room Air 11/15/16 20:58 2.0 Intake and Output 11/15/16 11/15/16 11/16/16 15:00 23:00 07:00 Intake Total 500 ml 480 ml Output Total 2500 ml Balance -2000 ml 480 ml Results Result Diagram: 11/15/16 0730 11/15/16 0730 Results 24 hrs Laboratory Tests Test 11/16/16 06:10 Random Vancomycin Level 13.5 Medications Medications Current Medications Amlodipine Besylate (Norvasc) 5 mg BID PO Last administered on 11/16/16 08:05 ; Admin Dose 5 MG; Start 11/12/16 at 11:30 Losartan Potassium (Cozaar) 25 mg DAILY PO Last administered on 11/16/16 08:06 ; Admin Dose 25 MG; Start 11/12/16 at 11:30 Nifedipine (Procardia Xl) 60 mg DAILY PO Last administered on 11/16/16 08:05; Admin Dose 60 MG; Start 11/12/16 at 11:30 Zolpidem Tartrate (Ambien) 5 mg QHS PRN PO INSOMNIA Last administered on 23:39; Admin Dose 5 MG; Start 11/12/16 at 11:30 Hydralazine HCl (Apresoline) 10 mg Q6H PRN IV SBP>170 Last administered on 11/15 20:58; Admin Dose 10 MG; Start 11/12/16 at 11:30 Bacitracin/ Polymyxin B Sulfate (Ak-Poly-Loren Oph Oint) 1 applic TID LEFT EYE Last administered on 11/16/16 08:04; Admin Dose 1 APPLIC; Start 11/12/16 at 13: 00 Morphine Sulfate (morphine) 2 mg Q4H PRN IV PAIN LEVEL 6-10 Last administered on 11/15/16 21:54; Admin Dose 2 MG; Start 11/12/16 at 14:00 Acetaminophen (Tylenol Tab) 650 mg Q4H PRN PO PAIN AND OR ELEVATED TEMP; Start 11/12/16 at 14:00 Atorvastatin Calcium (Lipitor) 40 mg HS PO Last administered on 11/15/16 20:24 ; Admin Dose 40 MG; Start 11/12/16 at 21:00 Heparin Sodium (Porcine) (Heparin (1000 Units/ml)) PRN PRN IV PENDING LAB VALUE Last administered on 11/13/16 06:42; Admin Dose 4,000 UNIT; Start at 17:30 Aspirin (Aspirin) 81 mg DAILY PO Last administered on 11/16/16 08:04; Admin Dose 81 MG; Start 11/12/16 at 17:30 Metoprolol Tartrate 25 mg 25 mg TID PO Last administered on 11/16/16 08:05; Admin Dose 25 MG; Start 11/13/16 at 10:00 Piperacillin Sod/ Tazobactam Sod (Zosyn 2.25gm/ 50ml (Pmx)) 50 ml @ 100 mls/hr Q8 IVPB Last administered on 11/16/16 14:12; Admin Dose 100 MLS/HR; Start 04/20 at 22:00 Epoetin Jorge Luis (Epogen (Esrd)) 3,000 units MoWeFr@17 SC ; Start 11/15/16 at 17:00 Ondansetron HCl 4 mg 4 mg Q4H PRN IV NAUSEA AND/OR VOMITING; Start 11/15/16 at 19:30 Vancomycin HCl (Vancocin) 250 ml @ 125 mls/hr 12 IVPB Last administered on t 12:29; Admin Dose 125 MLS/HR; Start 11/16/16 at 12:00; Stop 11/16/16 at 23:00 ESTEFANIA HARMON NP Nov 16, 2016 20:27
[2016-11-16] MEDS: ATORVASTATIN 40 MG TAB PO SCH (20:55)
[2016-11-17] VITALS (13 sets, daily range): BP systolic 114–167; BP diastolic 63–79; PULSE 75; RESP 17–19
[2016-11-17] MEDS: PIPER-TAZO 2.25 GM (PMX) 50 ML IVPB SCH ×3 (05:59→22:15)
[2016-11-17] MEDS: BACITRACIN/POLYMYX 3.5 GM OPH OINT LEFT EYE SCH ×3 (08:40→20:51)
[2016-11-17] MEDS: SEVELAMER 800 MG TAB PO SCH ×3 (08:43→18:05)
[2016-11-17] MEDS: ASPIRIN 81 MG TAB PO SCH (08:43)
[2016-11-17] MEDS: NIFEdipine (XL) 60 MG TAB PO SCH (08:44)
[2016-11-17] MEDS: METOPROLOL 25 MG TAB PO SCH ×3 (08:44→20:50)
[2016-11-17] MEDS: AMLODIPINE 5 MG TAB PO SCH ×2 (08:44→20:50)
[2016-11-17] MEDS: LOSARTAN 25 MG TAB PO SCH (08:44)
[2016-11-17] MEDS ORDERED: MAGNESIUM HYDROXIDE 30ML CUP PO ONE (11:00)
[2016-11-17] MEDS ORDERED: LACTULOSE 30ML CUP PO ONE (11:00)
[2016-11-17] MEDS ORDERED: BISACODYL (EC) 5 MG TAB PO PRN (11:00)
--- NOTE | 2016-11-17 11:11 | PN ---
Date/Time of Note Date/Time of Note DATE: 11/17/16 TIME: 11:06 Assessment/Plan VTE Prophylaxis VTE Prophylaxis Intervention: other Assessment/Plan Assessment/Plan Assessment/Plan Left foot cellulitis, fifth toe gangrene 2. Peripheral vascular disease 3. End-stage renal disease, hemodialysis dependent 4. Hypertension 5. Patchy opacification in the right lower lung per chest x-ray on admission questionable infiltrate Seen by Vascular and Cardiology Consultations reviewed S/p HD MWF schedule STACIE with HD [id number] no change hd per plan [id number] cont plan Exam/Review of Systems Vital Signs Vitals Vital Signs Date Time Temp Pulse Resp B/P Pulse Ox O2 Delivery O2 Flow Rate FiO2 11/17/16 08:14 75 11/17/16 07:16 97.4 18 159/72 95 11/15/16 21:03 Room Air 11/15/16 20:58 2.0 Intake and Output 11/16/16 11/16/16 11/17/16 15:00 23:00 07:00 Intake Total 300 ml 700 ml Balance 300 ml 700 ml Exam Constitutional: alert, oriented Head: normocephalic Eyes: nl conjunctiva ENMT: nl external ears & nose Neck: supple Respiratory: clear to auscultation, normal air movement Cardiovascular: nl pulses, regular rate and rhythm Gastrointestinal: nl liver, spleen, non-tender, soft Neurological: HEAD OF MARKETING II-XII intact Results Result Diagram: 11/15/1630 11/15/1630 Medications Medications Current Medications Amlodipine Besylate (Norvasc) 5 mg BID PO Last administered on 11/17/16 08:44 ; Admin Dose 5 MG; Start 11/12/16 at 11:30 Losartan Potassium (Cozaar) 25 mg DAILY PO Last administered on 11/17/16 08:44 ; Admin Dose 25 MG; Start 11/12/16 at 11:30 Nifedipine (Procardia Xl) 60 mg DAILY PO Last administered on 11/17/16 08:44; Admin Dose 60 MG; Start 11/12/16 at 11:30 Zolpidem Tartrate (Ambien) 5 mg QHS PRN PO INSOMNIA Last administered on 23:39; Admin Dose 5 MG; Start 11/12/16 at 11:30 Hydralazine HCl (Apresoline) 10 mg Q6H PRN IV SBP>170 Last administered on 11/15 20:58; Admin Dose 10 MG; Start 11/12/16 at 11:30 Bacitracin/ Polymyxin B Sulfate (Ak-Poly-Loren Oph Oint) 1 applic TID LEFT EYE Last administered on 11/16/16 20:55; Admin Dose 1 APPLIC; Start 11/12/16 at 13: 00 Morphine Sulfate (morphine) 2 mg Q4H PRN IV PAIN LEVEL 6-10 Last administered on 11/15/16 21:54; Admin Dose 2 MG; Start 11/12/16 at 14:00 Acetaminophen (Tylenol Tab) 650 mg Q4H PRN PO PAIN AND OR ELEVATED TEMP; Start 11/12/16 at 14:00 Atorvastatin Calcium (Lipitor) 40 mg HS PO Last administered on 11/16/16 20:55 ; Admin Dose 40 MG; Start 11/12/16 at 21:00 Heparin Sodium (Porcine) (Heparin (1000 Units/ml)) PRN PRN IV PENDING LAB VALUE Last administered on 11/13/16 06:42; Admin Dose 4,000 UNIT; Start at 17:30 Aspirin (Aspirin) 81 mg DAILY PO Last administered on 11/17/16 08:43; Admin Dose 81 MG; Start 11/12/16 at 17:30 Metoprolol Tartrate 25 mg 25 mg TID PO Last administered on 11/17/16 08:44; Admin Dose 25 MG; Start 11/13/16 at 10:00 Piperacillin Sod/ Tazobactam Sod (Zosyn 2.25gm/ 50ml (Pmx)) 50 ml @ 100 mls/hr Q8 IVPB Last administered on 11/17/16 05:59; Admin Dose 100 MLS/HR; Start 04/20 at 22:00 Epoetin Jorge Luis (Epogen (Esrd)) 3,000 units MoWeFr@17 SC ; Start 11/15/16 at 17:00 Ondansetron HCl (Zofran Inj) 4 mg Q4H PRN IV NAUSEA AND/OR VOMITING; Start at 19:30 Docusate Sodium (Colace) 100 mg BID PO ; Start 11/17/16 at 21:00 Bisacodyl (Dulcolax) 5 mg DAILY PRN PO CONSTIPATION; Start 11/17/16 at 11:00 RENÉE KENNEDY MD Nov 17, 2016 11:11
[2016-11-17] MEDS: ONDANSETRON 4 MG INJ IV PRN (11:14)
--- NOTE | 2016-11-17 14:45 | CONS ---
Date/Time of Note Date/Time of Note DATE: 11/17/16 TIME: 14:41 Assessment/Plan Assessment/Plan Chief Complaint/Hosp Course Assessment/Plan Chief Complaint/Hosp Course ID PROGRESS NOTE CURRENT ABX=> Vanco IV + Zosyn 24H Interval Summary * Clinically Stable. No Fevers. Denies Pain. * Microbiology: All cultures negative Physical examination: Well-developed well-nourished elderly man who is alert in no distress. Head atraumatic normocephalic sclera nonicteric, mucosa dry neck is supple chest rise symmetrical breath sounds clear heart S1-S2 abdomen soft bowel tones present, extremities with left foot erythema and gangrene of the toe ID ASSESSMENT 1. Left foot cellulitis, fifth toe gangrene 2. Peripheral vascular disease 3. End-stage renal disease, hemodialysis dependent==> L AVF 4. Hypertension 5. Patchy opacification in the right lower lung per chest x-ray on admission questionable infiltrate CURRENT ABX=> Vanco IV + Zosyn ID RECOMMENDATIONS/Plan Plan: 1. Continue on broad-spectrum antibiotics. 2. Follow podiatry and vascular surgery recommendations. 3. Pending vascular intervention. 4. GI Prophylaxis. DVT Prophylaxis. Monitor Labs. Problems: Consultation Date/Type/Reason Admit Date/Time Nov 12, 2016 at 07:20 Initial Consult Date 11/12/16 Type of Consultation: ID Exam/Review of Systems Vital Signs Vitals Vital Signs Date Time Temp Pulse Resp B/P Pulse Ox O2 Delivery O2 Flow Rate FiO2 11/17/16 12:11 75 11/17/16 11:38 98.6 17 114/63 95 11/15/16 21:03 Room Air 11/15/16 20:58 2.0 Intake and Output 11/16/16 11/16/16 11/17/16 15:00 23:00 07:00 Intake Total 300 ml 700 ml Balance 300 ml 700 ml Results Result Diagram: 11/15/16 0730 11/15/16 0730 Medications Medications Current Medications Amlodipine Besylate (Norvasc) 5 mg BID PO Last administered on 11/17/16 08:44 ; Admin Dose 5 MG; Start 11/12/16 at 11:30 Losartan Potassium (Cozaar) 25 mg DAILY PO Last administered on 11/17/16 08:44 ; Admin Dose 25 MG; Start 11/12/16 at 11:30 Nifedipine (Procardia Xl) 60 mg DAILY PO Last administered on 11/17/16 08:44; Admin Dose 60 MG; Start 11/12/16 at 11:30 Zolpidem Tartrate (Ambien) 5 mg QHS PRN PO INSOMNIA Last administered on 23:39; Admin Dose 5 MG; Start 11/12/16 at 11:30 Hydralazine HCl (Apresoline) 10 mg Q6H PRN IV SBP>170 Last administered on 11/15 20:58; Admin Dose 10 MG; Start 11/12/16 at 11:30 Bacitracin/ Polymyxin B Sulfate (Ak-Poly-Loren Oph Oint) 1 applic TID LEFT EYE Last administered on 11/16/16 20:55; Admin Dose 1 APPLIC; Start 11/12/16 at 13: 00 Morphine Sulfate (morphine) 2 mg Q4H PRN IV PAIN LEVEL 6-10 Last administered on 11/15/16 21:54; Admin Dose 2 MG; Start 11/12/16 at 14:00 Acetaminophen (Tylenol Tab) 650 mg Q4H PRN PO PAIN AND OR ELEVATED TEMP; Start 11/12/16 at 14:00 Atorvastatin Calcium (Lipitor) 40 mg HS PO Last administered on 11/16/16 20:55 ; Admin Dose 40 MG; Start 11/12/16 at 21:00 Heparin Sodium (Porcine) (Heparin (1000 Units/ml)) PRN PRN IV PENDING LAB VALUE Last administered on 11/13/16 06:42; Admin Dose 4,000 UNIT; Start at 17:30 Aspirin (Aspirin) 81 mg DAILY PO Last administered on 11/17/16 08:43; Admin Dose 81 MG; Start 11/12/16 at 17:30 Metoprolol Tartrate 25 mg 25 mg TID PO Last administered on 11/17/16 13:32; Admin Dose 25 MG; Start 11/13/16 at 10:00 Piperacillin Sod/ Tazobactam Sod (Zosyn 2.25gm/ 50ml (Pmx)) 50 ml @ 100 mls/hr Q8 IVPB Last administered on 11/17/16 13:31; Admin Dose 100 MLS/HR; Start 04/20 at 22:00 Epoetin Jorge Luis (Epogen (Esrd)) 3,000 units MoWeFr@17 SC ; Start 11/15/16 at 17:00 Ondansetron HCl (Zofran Inj) 4 mg Q4H PRN IV NAUSEA AND/OR VOMITING Last administered on 11/17/16t 11:14; Admin Dose 4 MG; Start 11/15/16 at 19:30 Docusate Sodium (Colace) 100 mg BID PO ; Start 11/17/16 at 21:00 Bisacodyl (Dulcolax) 5 mg DAILY PRN PO CONSTIPATION; Start 11/17/16 at 11:00 EDUARDO NUR NP Nov 17, 2016 14:45
--- NOTE | 2016-11-17 18:31 | PN ---
Date/Time of Note Date/Time of Note DATE: 11/17/16 TIME: 18:29 Assessment/Plan Assessment/Plan Assessment/Plan -NSTEMI, Dr. Pike is following in cardiology consultation. -Left fifth toe gangrene with cellulitis, continue antibiotics. Dr. Tobias is following in infection disease consultation. is following in podiatry consultation -Peripheral vascular disease, Dr. Zaragoza is following in vascular surgery consultation. -Hypertension, continue patient's home blood pressure medication, hydralazine as needed for systolic blood pressure above 170. -End-stage renal disease, continue hemodialysis per nephrology Dr. Newyb is following in nephrology consultation. Further recommendations based on clinical course. End of care discussed with Dr. French. Subjective 24 Hr Interval Summary Respiratory: no complaints Cardiovascular: no complaints Gastrointestinal: no complaints Genitourinary: no complaints Musculoskeletal: no complaints Exam/Review of Systems Vital Signs Vitals Vital Signs Date Time Temp Pulse Resp B/P Pulse Ox O2 Delivery O2 Flow Rate FiO2 11/17/16 16:16 75 11/17/16 15:53 98.0 17 133/63 92 11/15/16 21:03 Room Air 11/15/16 20:58 2.0 Intake and Output 11/16/16 11/16/16 11/17/16 15:00 23:00 07:00 Intake Total 300 ml 700 ml Balance 300 ml 700 ml Exam Constitutional: alert, well developed Respiratory: clear to auscultation, normal air movement Cardiovascular: nl pulses, regular rate and rhythm Gastrointestinal: non-tender, soft Musculoskeletal: nl extremities to inspection Extremities: normal pulses Results Result Diagram: 11/15/1630 11/15/16 0730 Medications Medications Current Medications Amlodipine Besylate (Norvasc) 5 mg BID PO Last administered on 11/17/16 08:44 ; Admin Dose 5 MG; Start 11/12/16 at 11:30 Losartan Potassium (Cozaar) 25 mg DAILY PO Last administered on 11/17/16 08:44 ; Admin Dose 25 MG; Start 11/12/16 at 11:30 Nifedipine (Procardia Xl) 60 mg DAILY PO Last administered on 11/17/16 08:44; Admin Dose 60 MG; Start 11/12/16 at 11:30 Zolpidem Tartrate (Ambien) 5 mg QHS PRN PO INSOMNIA Last administered on 23:39; Admin Dose 5 MG; Start 11/12/16 at 11:30 Hydralazine HCl (Apresoline) 10 mg Q6H PRN IV SBP>170 Last administered on 11/15 20:58; Admin Dose 10 MG; Start 11/12/16 at 11:30 Bacitracin/ Polymyxin B Sulfate (Ak-Poly-Loren Oph Oint) 1 applic TID LEFT EYE Last administered on 11/16/16 20:55; Admin Dose 1 APPLIC; Start 11/12/16 at 13: 00 Morphine Sulfate (morphine) 2 mg Q4H PRN IV PAIN LEVEL 6-10 Last administered on 11/15/16 21:54; Admin Dose 2 MG; Start 11/12/16 at 14:00 Acetaminophen (Tylenol Tab) 650 mg Q4H PRN PO PAIN AND OR ELEVATED TEMP; Start 11/12/16 at 14:00 Atorvastatin Calcium (Lipitor) 40 mg HS PO Last administered on 11/16/16 20:55 ; Admin Dose 40 MG; Start 11/12/16 at 21:00 Heparin Sodium (Porcine) (Heparin (1000 Units/ml)) PRN PRN IV PENDING LAB VALUE Last administered on 11/13/16 06:42; Admin Dose 4,000 UNIT; Start at 17:30 Aspirin (Aspirin) 81 mg DAILY PO Last administered on 11/17/16 08:43; Admin Dose 81 MG; Start 11/12/16 at 17:30 Metoprolol Tartrate 25 mg 25 mg TID PO Last administered on 11/17/16 13:32; Admin Dose 25 MG; Start 11/13/16 at 10:00 Piperacillin Sod/ Tazobactam Sod (Zosyn 2.25gm/ 50ml (Pmx)) 50 ml @ 100 mls/hr Q8 IVPB Last administered on 11/17/16 13:31; Admin Dose 100 MLS/HR; Start 04/20 at 22:00 Epoetin Jorge Luis (Epogen (Esrd)) 3,000 units MoWeFr@17 SC ; Start 11/15/16 at 17:00 Ondansetron HCl (Zofran Inj) 4 mg Q4H PRN IV NAUSEA AND/OR VOMITING Last administered on 11/17/16t 11:14; Admin Dose 4 MG; Start 11/15/16 at 19:30 Docusate Sodium (Colace) 100 mg BID PO ; Start 11/17/16 at 21:00 Bisacodyl (Dulcolax) 5 mg DAILY PRN PO CONSTIPATION; Start 11/17/16 at 11:00 IHSAN SULLIVAN Nov 17, 2016 18:31
[2016-11-17] MEDS: ATORVASTATIN 40 MG TAB PO SCH (20:49)
[2016-11-17] MEDS: DOCUSATE SODIUM 100 MG CAP PO SCH (20:49)
[2016-11-18] VITALS (19 sets, daily range): BP systolic 156–183; BP diastolic 61–88; PULSE 74–80; RESP 16–19
[2016-11-18] MEDS: PIPER-TAZO 2.25 GM (PMX) 50 ML IVPB SCH ×2 (05:10→13:53)
[2016-11-18] MEDS: LOSARTAN 25 MG TAB PO SCH (09:00)
[2016-11-18] MEDS: NIFEdipine (XL) 60 MG TAB PO SCH (09:00)
[2016-11-18] MEDS: METOPROLOL 25 MG TAB PO SCH ×2 (09:00→13:02)
[2016-11-18] MEDS: AMLODIPINE 5 MG TAB PO SCH ×2 (09:00→20:28)
[2016-11-18] MEDS: SEVELAMER 800 MG TAB PO SCH ×3 (09:33→17:31)
[2016-11-18] MEDS: DOCUSATE SODIUM 100 MG CAP PO SCH ×2 (09:33→20:27)
[2016-11-18] MEDS: BACITRACIN/POLYMYX 3.5 GM OPH OINT LEFT EYE SCH ×3 (09:33→20:27)
[2016-11-18] MEDS: ASPIRIN 81 MG TAB PO SCH (09:33)
--- NOTE | 2016-11-18 15:21 | CONS ---
Date/Time of Note Date/Time of Note DATE: 11/18/16 TIME: 15:20 Assessment/Plan Assessment/Plan Chief Complaint/Hosp Course N0 acute changes, awake, looks comfortable, no fevers Antibiotics: Vanco, Zosyn Physical examination: Well-developed well-nourished elderly man who is alert in no distress. Head atraumatic normocephalic sclera nonicteric bugle mucosa dry neck is supple chest rise symmetrical breath sounds clear heart S1-S2 abdomen soft bowel tones present, extremities with left foot erythema and gangrene of the toe Assessment: 1. Left foot cellulitis, fifth toe gangrene 2. Peripheral vascular disease 3. End-stage renal disease, hemodialysis dependent==> L AVF 4. Hypertension 5. Patchy opacification in the right lower lung per chest x-ray on admission questionable infiltrate Plan: Clinically stable, continue Vanco, change Zosyn to Levaquin, follow podiatry and vascular surgery recommendations, pending vascular intervention Discussed with pt Problems: Consultation Date/Type/Reason Admit Date/Time Nov 12, 2016 at 07:20 Type of Consultation: ID Exam/Review of Systems Vital Signs Vitals Vital Signs Date Time Temp Pulse Resp B/P Pulse Ox O2 Delivery O2 Flow Rate FiO2 11/18/16 13:41 74 156/61 11/18/16 11:54 98.1 18 96 11/15/16 21:03 Room Air 11/15/16 20:58 2.0 Intake and Output 11/17/16 11/17/16 11/18/16 15:00 23:00 07:00 Intake Total 50 ml 800 ml Output Total 400 ml Balance 50 ml 400 ml Results Result Diagram: 11/15/16 0730 11/15/16 0730 Medications Medications Current Medications Amlodipine Besylate (Norvasc) 5 mg BID PO Last administered on 11/17/16 20:50 ; Admin Dose 5 MG; Start 11/12/16 at 11:30 Losartan Potassium (Cozaar) 25 mg DAILY PO Last administered on 11/17/16 08:44 ; Admin Dose 25 MG; Start 11/12/16 at 11:30 Nifedipine (Procardia Xl) 60 mg DAILY PO Last administered on 11/17/16 08:44; Admin Dose 60 MG; Start 11/12/16 at 11:30 Zolpidem Tartrate (Ambien) 5 mg QHS PRN PO INSOMNIA Last administered on 23:39; Admin Dose 5 MG; Start 11/12/16 at 11:30 Hydralazine HCl (Apresoline) 10 mg Q6H PRN IV SBP>170 Last administered on 11/15 20:58; Admin Dose 10 MG; Start 11/12/16 at 11:30 Bacitracin/ Polymyxin B Sulfate (Ak-Poly-Loren Oph Oint) 1 applic TID LEFT EYE Last administered on 11/18/16 09:33; Admin Dose 1 APPLIC; Start 11/12/16 at 13: 00 Morphine Sulfate (morphine) 2 mg Q4H PRN IV PAIN LEVEL 6-10 Last administered on 11/15/16 21:54; Admin Dose 2 MG; Start 11/12/16 at 14:00 Acetaminophen (Tylenol Tab) 650 mg Q4H PRN PO PAIN AND OR ELEVATED TEMP; Start 11/12/16 at 14:00 Atorvastatin Calcium (Lipitor) 40 mg HS PO Last administered on 11/17/16 20:49 ; Admin Dose 40 MG; Start 11/12/16 at 21:00 Aspirin (Aspirin) 81 mg DAILY PO Last administered on 11/18/16 09:33; Admin Dose 81 MG; Start 11/12/16 at 17:30 Metoprolol Tartrate 25 mg 25 mg TID PO Last administered on 11/18/16 13:02; Admin Dose 25 MG; Start 11/13/16 at 10:00 Piperacillin Sod/ Tazobactam Sod (Zosyn 2.25gm/ 50ml (Pmx)) 50 ml @ 100 mls/hr Q8 IVPB Last administered on 11/18/16 13:53; Admin Dose 100 MLS/HR; Start 04/20 at 22:00 Epoetin Jorge Luis (Epogen (Esrd)) 3,000 units MoWeFr@17 SC ; Start 11/15/16 at 17:00 Ondansetron HCl (Zofran Inj) 4 mg Q4H PRN IV NAUSEA AND/OR VOMITING Last administered on 11/17/16 11:14; Admin Dose 4 MG; Start 11/15/16 at 19:30 Docusate Sodium (Colace) 100 mg BID PO Last administered on 7/17/17at 09:33; Admin Dose 100 MG; Start 11/17/16 at 21:00 Bisacodyl (Dulcolax) 5 mg DAILY PRN PO CONSTIPATION; Start 11/17/16 at 11:00 Miscellaneous Information (*Rx Drug Level Order Reminder*) RANDOM VANCOMYCIN LEVEL 7... ONCE ONCE XX ; Start 11/19/16 at 05:00; Stop 11/19/16 at 05:01 SHITAL MCKEON NP Nov 18, 2016 15:21
--- NOTE | 2016-11-18 15:54 | PN ---
Date/Time of Note Date/Time of Note DATE: 11/18/16 TIME: 15:47 Assessment/Plan VTE Prophylaxis VTE Prophylaxis Intervention: SCD's Lines/Catheters IV [facility] Type (from [facility] Saline Lock Assessment/Plan Chief Complaint/Hosp Course Patient underwent hemodialysis, RN reports fluctuation in blood pressure. Assessment/Plan -NSTEMI, Dr. Pike is following in cardiology consultation. -Left fifth toe gangrene with cellulitis, continue antibiotics. Dr. Tobias is following in infection disease consultation. is following in podiatry consultation -Peripheral vascular disease, Dr. Zaragoza is following in vascular surgery consultation. -Hypertension, continue patient's home blood pressure medication, hydralazine as needed for systolic blood pressure above 170. -End-stage renal disease, continue hemodialysis per nephrology Dr. Newby is following in nephrology consultation. Further recommendations based on clinical course. End of care discussed with Dr. French. Problems: Exam/Review of Systems Vital Signs Vitals Vital Signs Date Time Temp Pulse Resp B/P Pulse Ox O2 Delivery O2 Flow Rate FiO2 11/18/16 15:36 98.3 75 17 171/79 96 11/15/16 21:03 Room Air 11/15/16 20:58 2.0 Intake and Output 11/17/16 11/17/16 11/18/16 15:00 23:00 07:00 Intake Total 50 ml 800 ml Output Total 400 ml Balance 50 ml 400 ml Exam Constitutional: alert, oriented Psych: no complaints Head: atraumatic, normocephalic Eyes: other (Blind) Neck: supple Respiratory: normal air movement Cardiovascular: nl pulses Gastrointestinal: non-tender Extremities: normal pulses Neurological: nl mental status Skin: nl turgor, other (Left fifth toe necrotic, erythema extending from toes to foot, tenderness) Results Result Diagram: 11/15/1672911/15/16 0730 Medications Medications Current Medications Amlodipine Besylate (Norvasc) 5 mg BID PO Last administered on 11/17/16 20:50 ; Admin Dose 5 MG; Start 11/12/16 at 11:30 Losartan Potassium (Cozaar) 25 mg DAILY PO Last administered on 11/17/16 08:44 ; Admin Dose 25 MG; Start 11/12/16 at 11:30 Nifedipine (Procardia Xl) 60 mg DAILY PO Last administered on 11/17/16 08:44; Admin Dose 60 MG; Start 11/12/16 at 11:30 Zolpidem Tartrate (Ambien) 5 mg QHS PRN PO INSOMNIA Last administered on 23:39; Admin Dose 5 MG; Start 11/12/16 at 11:30 Hydralazine HCl (Apresoline) 10 mg Q6H PRN IV SBP>170 Last administered on 11/15 20:58; Admin Dose 10 MG; Start 11/12/16 at 11:30 Bacitracin/ Polymyxin B Sulfate (Ak-Poly-Loren Oph Oint) 1 applic TID LEFT EYE Last administered on 11/18/16 09:33; Admin Dose 1 APPLIC; Start 11/12/16 at 13: 00 Morphine Sulfate (morphine) 2 mg Q4H PRN IV PAIN LEVEL 6-10 Last administered on 11/15/16 21:54; Admin Dose 2 MG; Start 11/12/16 at 14:00 Acetaminophen (Tylenol Tab) 650 mg Q4H PRN PO PAIN AND OR ELEVATED TEMP; Start 11/12/16 at 14:00 Atorvastatin Calcium (Lipitor) 40 mg HS PO Last administered on 11/17/16 20:49 ; Admin Dose 40 MG; Start 11/12/16 at 21:00 Aspirin (Aspirin) 81 mg DAILY PO Last administered on 11/18/16 09:33; Admin Dose 81 MG; Start 11/12/16 at 17:30 Metoprolol Tartrate (Lopressor) 25 mg TID PO Last administered on 11/18/16 13: 02; Admin Dose 25 MG; Start 11/13/16 at 10:00 Epoetin Jorge Luis (Epogen (Esrd)) 3,000 units MoWeFr@17 SC ; Start 11/15/16 at 17:00 Ondansetron HCl (Zofran Inj) 4 mg Q4H PRN IV NAUSEA AND/OR VOMITING Last administered on 11/17/16 11:14; Admin Dose 4 MG; Start 11/15/16 at 19:30 Docusate Sodium (Colace) 100 mg BID PO Last administered on 11/18/16 09:33; Admin Dose 100 MG; Start 11/17/16 at 21:00 Bisacodyl (Dulcolax) 5 mg DAILY PRN PO CONSTIPATION; Start 11/17/16 at 11:00 Miscellaneous Information (*Rx Drug Level Order Reminder*) RANDOM VANCOMYCIN LEVEL 7... ONCE ONCE XX ; Start 11/19/16 at 05:00; Stop 11/19/16 at 05:01 Levofloxacin (Levaquin) 250 mg Q48H PO ; Start 11/18/16 at 16:00 VIV KING Nov 18, 2016 15:53
[2016-11-18] MEDS: LEVOFLOXACIN 250 MG TAB PO SCH (16:00)
[2016-11-18] MEDS: EPOETIN 3000 UNITS/1 ML INJ (ESRD) SC SCH (17:00)
[2016-11-18] MEDS: METOPROLOL 50 MG TAB PO SCH ×2 (17:38→20:28)
[2016-11-18] MEDS: ATORVASTATIN 40 MG TAB PO SCH (20:28)
--- NOTE | 2016-11-18 22:36 | CONS ---
Date/Time of Note Date/Time of Note DATE: 11/18/16 TIME: 22:35 Assessment/Plan Assessment/Plan Additional Assessment/Plan SPoke to at bedside Cont'd Hospitalization Reason: Pt had HD already, awaiting V Sx plans Consultation Date/Type/Reason Admit Date/Time Nov 12, 2016 at 07:20 Initial Consult Date 11/12/16 Type of Consultation: renal 24 HR Interval Summary Free Text/Dictation Pt is legally blind AND OFFEERS NO NEW COMPLAINTS Exam/Review of Systems Vital Signs Vitals Vital Signs Date Time Temp Pulse Resp B/P Pulse Ox O2 Delivery O2 Flow Rate FiO2 11/18/16 20:41 98.2 73 16 182/74 93 11/15/16 21:03 Room Air 11/15/16 20:58 2.0 Intake and Output 11/17/16 11/17/16 11/18/16 15:00 23:00 07:00 Intake Total 50 ml 800 ml Output Total 400 ml Balance 50 ml 400 ml Exam Offers no new complaints Eyes: other (pT HAS SEVER DIABETC RETINOPATHY) Extremities: other (lT ARM AVF/GRAFT IS IN PLACE) Results Hct 29% Result Diagram: 11/15/16 0730 11/15/16 0730 Medications Medications Current Medications Amlodipine Besylate (Norvasc) 5 mg BID PO Last administered on 11/18/16 20:28 ; Admin Dose 5 MG; Start 11/12/16 at 11:30 Losartan Potassium (Cozaar) 25 mg DAILY PO Last administered on 11/17/16 08:44 ; Admin Dose 25 MG; Start 11/12/16 at 11:30 Nifedipine (Procardia Xl) 60 mg DAILY PO Last administered on 11/17/16 08:44; Admin Dose 60 MG; Start 11/12/16 at 11:30 Zolpidem Tartrate (Ambien) 5 mg QHS PRN PO INSOMNIA Last administered on 23:39; Admin Dose 5 MG; Start 11/12/16 at 11:30 Hydralazine HCl (Apresoline) 10 mg Q6H PRN IV SBP>170 Last administered on 11/15 20:58; Admin Dose 10 MG; Start 11/12/16 at 11:30 Bacitracin/ Polymyxin B Sulfate (Ak-Poly-Loren Oph Oint) 1 applic TID LEFT EYE Last administered on 11/18/16 20:27; Admin Dose 1 APPLIC; Start 11/12/16 at 13: 00 Morphine Sulfate (morphine) 2 mg Q4H PRN IV PAIN LEVEL 6-10 Last administered on 11/15/16 21:54; Admin Dose 2 MG; Start 11/12/16 at 14:00 Acetaminophen (Tylenol Tab) 650 mg Q4H PRN PO PAIN AND OR ELEVATED TEMP; Start 11/12/16 at 14:00 Atorvastatin Calcium (Lipitor) 40 mg HS PO Last administered on 11/18/16 20:28 ; Admin Dose 40 MG; Start 11/12/16 at 21:00 Aspirin (Aspirin) 81 mg DAILY PO Last administered on 11/18/16 09:33; Admin Dose 81 MG; Start 11/12/16 at 17:30 Epoetin Jorge Luis (Epogen (Esrd)) 3,000 units MoWeFr@17 SC Last administered on 11/18 17:00; Admin Dose 3,000 UNITS; Start 11/15/16 at 17:00 Ondansetron HCl (Zofran Inj) 4 mg Q4H PRN IV NAUSEA AND/OR VOMITING Last administered on 11/17/16 11:14; Admin Dose 4 MG; Start 11/15/16 at 19:30 Docusate Sodium (Colace) 100 mg BID PO Last administered on 11/18/16 20:27; Admin Dose 100 MG; Start 11/17/16 at 21:00 Bisacodyl (Dulcolax) 5 mg DAILY PRN PO CONSTIPATION; Start 11/17/16 at 11:00 Miscellaneous Information (*Rx Drug Level Order Reminder*) RANDOM VANCOMYCIN LEVEL 7... ONCE ONCE XX ; Start 11/19/16 at 05:00; Stop 11/19/16 at 05:01 Levofloxacin (Levaquin) 250 mg Q48H PO Last administered on 11/18/16 16:00; Admin Dose 250 MG; Start 11/18/16 at 16:00 Metoprolol Tartrate (Lopressor) 50 mg BID PO Last administered on 11/18/16 20: 28; Admin Dose 50 MG; Start 11/18/16 at 17:05 SHU WHYTE MD Nov 18, 2016 22:36
[2016-11-19] VITALS (14 sets, daily range): BP systolic 102–171; BP diastolic 53–81; PULSE 75–86; RESP 16–19
[2016-11-19] MEDS: morphine 2 MG INJ IV PRN (03:14)
[2016-11-19 05:42] LABS: ADD SCAN DIFF NO
[2016-11-19 05:47] LABS: ABNORMAL IP MESSAGE 1; BASOPHILS % 0.8 % (0.0-2.0); EOSINOPHILS # 0.2 10^3/ul (0.0-0.5); EOSINOPHILS % 4.1 % (0.0-7.0); HEMATOCRIT 27.4 % (42.0-52.0); LYMPHOCYTES # 0.5 10^3/ul (0.8-2.9); LYMPHOCYTES % 9.9 % (15.0-51.0); MEAN CORPUSCULAR HEMOGLOBIN 29.2 pg (29.0-33.0); MEAN CORPUSCULAR HGB CONC 32.8 g/dl (32.0-37.0); MEAN PLATELET VOLUME 10.6 fl (7.4-10.4); MONOCYTES % 18.5 % (0.0-11.0); NEUTROPHIL # 3.4 10^3/ul (1.6-7.5); NEUTROPHILS % 66.1 % (39.0-77.0); PLATELET COUNT 163 10^3/UL (140-415); RED BLOOD COUNT 3.08 10^6/ul (4.70-6.10); RED CELL DISTRIBUTION WIDTH 16.1 % (11.5-14.5); WHITE BLOOD COUNT 5.1 10^3/ul (4.8-10.8)
[2016-11-19 06:05] LABS: CALCIUM 10.2 mg/dl (8.4-10.2); CREATININE 8.28 mg/dl (0.61-1.24); POTASSIUM 4.7 mmol/L (3.5-5.1)
[2016-11-19] MEDS: DOCUSATE SODIUM 100 MG CAP PO SCH ×2 (09:03→21:33)
[2016-11-19] MEDS: ASPIRIN 81 MG TAB PO SCH (09:03)
[2016-11-19] MEDS: BACITRACIN/POLYMYX 3.5 GM OPH OINT LEFT EYE SCH ×3 (09:03→21:34)
[2016-11-19] MEDS: AMLODIPINE 5 MG TAB PO SCH ×2 (09:04→21:34)
[2016-11-19] MEDS: NIFEdipine (XL) 60 MG TAB PO SCH (09:04)
[2016-11-19] MEDS: SEVELAMER 800 MG TAB PO SCH ×3 (09:04→17:44)
[2016-11-19] MEDS: METOPROLOL 50 MG TAB PO SCH ×2 (09:05→21:37)
[2016-11-19] MEDS: LOSARTAN 25 MG TAB PO SCH (09:05)
--- NOTE | 2016-11-19 12:10 | PN ---
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 -Patient will need Plavix for 90 days - Please arrange as outpt -Continue with podiatry recommendations. For now no amputation recommended as we have increased perfusion and will await optimized limb salvage -Optimize vascular status (BP meds,diet, nutrition, cholesterol, antiplatelets). -Discussed findings, plans, and measurement of the patient and the family at bedside and they understand. -Thank you for allowing us to participate in the care of your patient. Please call with any questions. Problems: Subjective 24 Hr Interval Summary no new vascular events overnight Exam/Review of Systems Vital Signs Vitals Vital Signs Date Time Temp Pulse Resp B/P Pulse Ox O2 Delivery O2 Flow Rate FiO2 11/19/16 11:17 98.1 75 17 145/80 96 11/15/16 21:03 Room Air 11/15/16 20:58 2.0 Intake and Output 11/18/16 11/18/16 11/19/16 15:00 23:00 07:00 Intake Total 300 ml 750 ml Output Total 3300 ml Balance -3000 ml 750 ml Exam Free Text/Dictation Alert and oriented times 3, LUNGS: Clear to auscultation bilaterally. No crackles. HEART: S1, S2 is present. ABDOMEN: Soft, nontender, nondistended. Bowel sounds positive. EXTREMITIES: Right lower extremity palpable femoral pulse, faint pedal pulse. Motor and sensory intact. Capillary refill 3 seconds. No ulcers. Left lower extremity: Palpable femoral pulse, nonpalpable pedal pulse. Motor and sensory intact. Capillary refill 3 to 4 seconds. There is dependent rubor of forefoot resolving, erythema resolving, 5th toe gangrene more dry Results Result Diagram: 11/19/16 0454 11/19/16 0454 AMOS KEYS MD Nov 19, 2016 12:09
[2016-11-19] MEDS: CLOPIDOGREL 75 MG TAB PO SCH (12:15)
--- NOTE | 2016-11-19 13:11 | CONS ---
Date/Time of Note Date/Time of Note DATE: 11/19/16 TIME: 13:11 Assessment/Plan Assessment/Plan Additional Assessment/Plan 1. Left foot cellulitis, fifth toe gangrene 2. Peripheral vascular disease 3. End-stage renal disease, hemodialysis dependent 4. Hypertension 5. Patchy opacification in the right lower lung per chest x-ray on admission questionable infiltrate S/p HD MWF schedule STACIE with HD Consultation Date/Type/Reason Admit Date/Time Nov 12, 2016 at 07:20 Type of Consultation: renal 24 HR Interval Summary Free Text/Dictation No new complaints, S/p HD yesterday, no complication Exam/Review of Systems Vital Signs Vitals Vital Signs Date Time Temp Pulse Resp B/P Pulse Ox O2 Delivery O2 Flow Rate FiO2 11/19/16 12:07 75 11/19/16 11:17 98.1 17 145/80 96 11/15/16 21:03 Room Air 11/15/16 20:58 2.0 Intake and Output 11/18/16 11/18/16 11/19/16 15:00 23:00 07:00 Intake Total 300 ml 750 ml Output Total 3300 ml Balance -3000 ml 750 ml Exam Constitutional: alert, oriented, No distress ENMT: mucosa pink and moist Neck: No jvd Respiratory: clear to auscultation, No labored breathing Cardiovascular: edema, regular rate and rhythm Gastrointestinal: non-tender, soft Neurological: No confused, No lethargic Skin: No diaphoresis Results Result Diagram: 11/19/16 0454 11/19/16 0454 Results 24 hrs Laboratory Tests Test 11/19/16 04:54 White Blood Count 5.1 Red Blood Count 3.08 L Hemoglobin 9.0 L Hematocrit 27.4 L Mean Corpuscular Volume 89.0 Mean Corpuscular Hemoglobin 29.2 Mean Corpuscular Hemoglobin Concent 32.8 Red Cell Distribution Width 16.1 H Platelet Count 163 Mean Platelet Volume 10.6 H Neutrophils % 66.1 Lymphocytes % 9.9 L Monocytes % 18.5 H Eosinophils % 4.1 Basophils % 0.8 Nucleated Red Blood Cells % 0.0 Neutrophils # 3.4 Lymphocytes # 0.5 L Monocytes # 1.0 H Eosinophils # 0.2 Basophils # 0.0 Nucleated Red Blood Cells # 0.0 Sodium Level 138 Potassium Level 4.7 Chloride Level 92 L Carbon Dioxide Level 28 Anion Gap 23 H Blood Urea Nitrogen 44 H Creatinine 8.28 H Glucose Level 64 L Calcium Level 10.2 Random Vancomycin Level 17.4 Medications Medications Current Medications Amlodipine Besylate (Norvasc) 5 mg BID PO Last administered on 11/19/16 09:04 ; Admin Dose 5 MG; Start 11/12/16 at 11:30 Losartan Potassium (Cozaar) 25 mg DAILY PO Last administered on 11/19/16 09:05 ; Admin Dose 25 MG; Start 11/12/16 at 11:30 Nifedipine (Procardia Xl) 60 mg DAILY PO Last administered on 11/19/16 09:04; Admin Dose 60 MG; Start 11/12/16 at 11:30 Zolpidem Tartrate (Ambien) 5 mg QHS PRN PO INSOMNIA Last administered on 23:39; Admin Dose 5 MG; Start 11/12/16 at 11:30 Hydralazine HCl (Apresoline) 10 mg Q6H PRN IV SBP>170 Last administered on 11/15 20:58; Admin Dose 10 MG; Start 11/12/16 at 11:30 Bacitracin/ Polymyxin B Sulfate (Ak-Poly-Loren Oph Oint) 1 applic TID LEFT EYE Last administered on 11/19/16 12:16; Admin Dose 1 APPLIC; Start 11/12/16 at 13: 00 Morphine Sulfate (morphine) 2 mg Q4H PRN IV PAIN LEVEL 6-10 Last administered on 11/19/16 03:14; Admin Dose 2 MG; Start 11/12/16 at 14:00 Acetaminophen (Tylenol Tab) 650 mg Q4H PRN PO PAIN AND OR ELEVATED TEMP; Start 11/12/16 at 14:00 Atorvastatin Calcium (Lipitor) 40 mg HS PO Last administered on 11/18/16 20:28 ; Admin Dose 40 MG; Start 11/12/16 at 21:00 Aspirin (Aspirin) 81 mg DAILY PO Last administered on 11/19/16 09:03; Admin Dose 81 MG; Start 11/12/16 at 17:30 Epoetin Jorge Luis (Epogen (Esrd)) 3,000 units MoWeFr@17 SC Last administered on 11/18 17:00; Admin Dose 3,000 UNITS; Start 11/15/16 at 17:00 Ondansetron HCl (Zofran Inj) 4 mg Q4H PRN IV NAUSEA AND/OR VOMITING Last administered on 11/17/16 11:14; Admin Dose 4 MG; Start 11/15/16 at 19:30 Docusate Sodium (Colace) 100 mg BID PO Last administered on 11/19/16 09:03; Admin Dose 100 MG; Start 11/17/16 at 21:00 Bisacodyl (Dulcolax) 5 mg DAILY PRN PO CONSTIPATION; Start 11/17/16 at 11:00 Levofloxacin (Levaquin) 250 mg Q48H PO Last administered on 11/18/16 16:00; Admin Dose 250 MG; Start 11/18/16 at 16:00 Metoprolol Tartrate (Lopressor) 50 mg BID PO Last administered on 11/19/16 09: 05; Admin Dose 50 MG; Start 11/18/16 at 17:05 Clopidogrel Bisulfate (plaVIX) 75 mg DAILY PO Last administered on 11/19/16 12 :15; Admin Dose 75 MG; Start 11/19/16 at 13:00 PIPER FELIX MD Nov 19, 2016 13:11
[2016-11-19] MEDS: ONDANSETRON 4 MG INJ IV PRN (16:06)
--- NOTE | 2016-11-19 16:47 | PN ---
Date/Time of Note Date/Time of Note DATE: 11/19/16 TIME: 16:39 Assessment/Plan VTE Prophylaxis VTE Prophylaxis Intervention: SCD's Lines/Catheters [facility] Saline Lock Assessment/Plan Chief Complaint/Hosp Course Patient's complaint of left lower extremity pain at night currently denies any pain, had an episode of nausea earlier today. Patient denies any chest pain denies shortness of breath. Assessment/Plan -NSTEMI, Dr. Pike is following in cardiology consultation. -Left fifth toe gangrene with cellulitis, continue antibiotics per ID. Dr. Tobias is following in infection disease consultation. 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 Zaragoza, vascular surgery. Continue Plavix. -Hypertension, Norvasc, Cozaar, Procardia, hydralazine as needed for systolic blood pressure above 170. -End-stage renal disease, continue hemodialysis per nephrology Dr. Newby is following in nephrology consultation. Further recommendations based on clinical course. End of care discussed with Dr. French. Problems: Exam/Review of Systems Vital Signs Vitals Vital Signs Date Time Temp Pulse Resp B/P Pulse Ox O2 Delivery O2 Flow Rate FiO2 11/19/16 16:26 75 11/19/16 15:26 98.1 18 102/53 96 11/15/16 21:03 Room Air 11/15/16 20:58 2.0 Intake and Output 11/18/16 11/18/16 11/19/16 15:00 23:00 07:00 Intake Total 300 ml 750 ml Output Total 3300 ml Balance -3000 ml 750 ml Exam Constitutional: alert, oriented Psych: no complaints Head: atraumatic, normocephalic Eyes: other (Blind) Neck: supple Respiratory: normal air movement Cardiovascular: nl pulses Gastrointestinal: non-tender Extremities: normal pulses Neurological: nl mental status Skin: nl turgor, other (Left fifth toe necrotic, erythema extending from toes to foot, tenderness) Results Result Diagram: 11/19/16 0454 11/19/16 0454 Results 24 hrs Laboratory Tests Test 11/19/16 04:54 White Blood Count 5.1 Red Blood Count 3.08 L Hemoglobin 9.0 L Hematocrit 27.4 L Mean Corpuscular Volume 89.0 Mean Corpuscular Hemoglobin 29.2 Mean Corpuscular Hemoglobin Concent 32.8 Red Cell Distribution Width 16.1 H Platelet Count 163 Mean Platelet Volume 10.6 H Neutrophils % 66.1 Lymphocytes % 9.9 L Monocytes % 18.5 H Eosinophils % 4.1 Basophils % 0.8 Nucleated Red Blood Cells % 0.0 Neutrophils # 3.4 Lymphocytes # 0.5 L Monocytes # 1.0 H Eosinophils # 0.2 Basophils # 0.0 Nucleated Red Blood Cells # 0.0 Sodium Level 138 Potassium Level 4.7 Chloride Level 92 L Carbon Dioxide Level 28 Anion Gap 23 H Blood Urea Nitrogen 44 H Creatinine 8.28 H Glucose Level 64 L Calcium Level 10.2 Random Vancomycin Level 17.4 Medications Medications Current Medications Amlodipine Besylate (Norvasc) 5 mg BID PO Last administered on 11/19/16 09:04 ; Admin Dose 5 MG; Start 11/12/16 at 11:30 Losartan Potassium (Cozaar) 25 mg DAILY PO Last administered on 11/19/16 09:05 ; Admin Dose 25 MG; Start 11/12/16 at 11:30 Nifedipine (Procardia Xl) 60 mg DAILY PO Last administered on 11/19/16 09:04; Admin Dose 60 MG; Start 11/12/16 at 11:30 Zolpidem Tartrate (Ambien) 5 mg QHS PRN PO INSOMNIA Last administered on 23:39; Admin Dose 5 MG; Start 11/12/16 at 11:30 Hydralazine HCl (Apresoline) 10 mg Q6H PRN IV SBP>170 Last administered on 11/15 20:58; Admin Dose 10 MG; Start 11/12/16 at 11:30 Bacitracin/ Polymyxin B Sulfate (Ak-Poly-Loren Oph Oint) 1 applic TID LEFT EYE Last administered on 11/19/16 12:16; Admin Dose 1 APPLIC; Start 11/12/16 at 13: 00 Morphine Sulfate (morphine) 2 mg Q4H PRN IV PAIN LEVEL 6-10 Last administered on 11/19/16 03:14; Admin Dose 2 MG; Start 11/12/16 at 14:00 Acetaminophen (Tylenol Tab) 650 mg Q4H PRN PO PAIN AND OR ELEVATED TEMP; Start 11/12/16 at 14:00 Atorvastatin Calcium (Lipitor) 40 mg HS PO Last administered on 11/18/16 20:28 ; Admin Dose 40 MG; Start 11/12/16 at 21:00 Aspirin (Aspirin) 81 mg DAILY PO Last administered on 11/19/16 09:03; Admin Dose 81 MG; Start 11/12/16 at 17:30 Epoetin Joreg Luis (Epogen (Esrd)) 3,000 units MoWeFr@17 SC Last administered on 11/18 17:00; Admin Dose 3,000 UNITS; Start 11/15/16 at 17:00 Ondansetron HCl (Zofran Inj) 4 mg Q4H PRN IV NAUSEA AND/OR VOMITING Last administered on 11/19/16 16:06; Admin Dose 4 MG; Start 11/15/16 at 19:30 Docusate Sodium (Colace) 100 mg BID PO Last administered on 11/19/16 09:03; Admin Dose 100 MG; Start 11/17/16 at 21:00 Bisacodyl (Dulcolax) 5 mg DAILY PRN PO CONSTIPATION; Start 11/17/16 at 11:00 Levofloxacin (Levaquin) 250 mg Q48H PO Last administered on 11/18/16 16:00; Admin Dose 250 MG; Start 11/18/16 at 16:00 Metoprolol Tartrate (Lopressor) 50 mg BID PO Last administered on 11/19/16 09: 05; Admin Dose 50 MG; Start 11/18/16 at 17:05 Clopidogrel Bisulfate 75 mg 75 mg DAILY PO Last administered on 11/19/16 12:15 ; Admin Dose 75 MG; Start 11/19/16 at 13:00 Vancomycin HCl/ Sodium Chloride (Vancocin/NS) 150 ml @ 75 mls/hr Q96H IVPB ; Start 11/19/16 at 18:00 VIV KING Nov 19, 2016 16:46
--- NOTE | 2016-11-19 17:15 | CONS ---
Date/Time of Note Date/Time of Note DATE: 11/19/16 TIME: 17:14 Assessment/Plan Assessment/Plan Chief Complaint/Hosp Course N0 acute changes, awake, looks comfortable, no fevers Antibiotics: Ar Oropeza Physical examination: Well-developed well-nourished elderly man who is alert in no distress. Head atraumatic normocephalic sclera nonicteric bugle mucosa dry neck is supple chest rise symmetrical breath sounds clear heart S1-S2 abdomen soft bowel tones present, extremities with left foot erythema and gangrene of the toe Assessment: 1. Left foot cellulitis, fifth toe gangrene===> S/P Advanced endovascular intervention, Fem/pop atherectomy, angioplasty and stenting by Dr. Zaragoza 2. Peripheral vascular disease 3. End-stage renal disease, hemodialysis dependent==> L AVF 4. Hypertension 5. Patchy opacification in the right lower lung per chest x-ray on admission questionable infiltrate Plan: Remain stable, continue antibiotic, follow podiatry and vascular surgery recommendations Discussed with staff Problems: Consultation Date/Type/Reason Admit Date/Time Nov 12, 2016 at 07:20 Type of Consultation: ID Exam/Review of Systems Vital Signs Vitals Vital Signs Date Time Temp Pulse Resp B/P Pulse Ox O2 Delivery O2 Flow Rate FiO2 11/19/16 16:26 75 11/19/16 15:26 98.1 18 102/53 96 11/15/16 21:03 Room Air 11/15/16 20:58 2.0 Intake and Output 11/18/16 11/18/16 11/19/16 15:00 23:00 07:00 Intake Total 300 ml 750 ml Output Total 3300 ml Balance -3000 ml 750 ml Results Result Diagram: 11/19/16 0454 11/19/16 0454 Results 24 hrs Laboratory Tests Test 11/19/16 04:54 White Blood Count 5.1 Red Blood Count 3.08 L Hemoglobin 9.0 L Hematocrit 27.4 L Mean Corpuscular Volume 89.0 Mean Corpuscular Hemoglobin 29.2 Mean Corpuscular Hemoglobin Concent 32.8 Red Cell Distribution Width 16.1 H Platelet Count 163 Mean Platelet Volume 10.6 H Neutrophils % 66.1 Lymphocytes % 9.9 L Monocytes % 18.5 H Eosinophils % 4.1 Basophils % 0.8 Nucleated Red Blood Cells % 0.0 Neutrophils # 3.4 Lymphocytes # 0.5 L Monocytes # 1.0 H Eosinophils # 0.2 Basophils # 0.0 Nucleated Red Blood Cells # 0.0 Sodium Level 138 Potassium Level 4.7 Chloride Level 92 L Carbon Dioxide Level 28 Anion Gap 23 H Blood Urea Nitrogen 44 H Creatinine 8.28 H Glucose Level 64 L Calcium Level 10.2 Random Vancomycin Level 17.4 Medications Medications Current Medications Amlodipine Besylate (Norvasc) 5 mg BID PO Last administered on 11/19/16 09:04 ; Admin Dose 5 MG; Start 11/12/16 at 11:30 Losartan Potassium (Cozaar) 25 mg DAILY PO Last administered on 11/19/16 09:05 ; Admin Dose 25 MG; Start 11/12/16 at 11:30 Nifedipine (Procardia Xl) 60 mg DAILY PO Last administered on 11/19/16 09:04; Admin Dose 60 MG; Start 11/12/16 at 11:30 Zolpidem Tartrate (Ambien) 5 mg QHS PRN PO INSOMNIA Last administered on 23:39; Admin Dose 5 MG; Start 11/12/16 at 11:30 Hydralazine HCl (Apresoline) 10 mg Q6H PRN IV SBP>170 Last administered on 11/15 20:58; Admin Dose 10 MG; Start 11/12/16 at 11:30 Bacitracin/ Polymyxin B Sulfate (Ak-Poly-Loren Oph Oint) 1 applic TID LEFT EYE Last administered on 11/19/16 12:16; Admin Dose 1 APPLIC; Start 11/12/16 at 13: 00 Morphine Sulfate (morphine) 2 mg Q4H PRN IV PAIN LEVEL 6-10 Last administered on 11/19/16 03:14; Admin Dose 2 MG; Start 11/12/16 at 14:00 Acetaminophen (Tylenol Tab) 650 mg Q4H PRN PO PAIN AND OR ELEVATED TEMP; Start 11/12/16 at 14:00 Atorvastatin Calcium (Lipitor) 40 mg HS PO Last administered on 11/18/16 20:28 ; Admin Dose 40 MG; Start 11/12/16 at 21:00 Aspirin (Aspirin) 81 mg DAILY PO Last administered on 11/19/16 09:03; Admin Dose 81 MG; Start 11/12/16 at 17:30 Epoetin Jorge Luis (Epogen (Esrd)) 3,000 units MoWeFr@17 SC Last administered on 11/18 17:00; Admin Dose 3,000 UNITS; Start 11/15/16 at 17:00 Ondansetron HCl (Zofran Inj) 4 mg Q4H PRN IV NAUSEA AND/OR VOMITING Last administered on 11/19/16 16:06; Admin Dose 4 MG; Start 11/15/16 at 19:30 Docusate Sodium (Colace) 100 mg BID PO Last administered on 11/19/16 09:03; Admin Dose 100 MG; Start 11/17/16 at 21:00 Bisacodyl (Dulcolax) 5 mg DAILY PRN PO CONSTIPATION; Start 11/17/16 at 11:00 Levofloxacin (Levaquin) 250 mg Q48H PO Last administered on 11/18/16 16:00; Admin Dose 250 MG; Start 11/18/16 at 16:00 Metoprolol Tartrate (Lopressor) 50 mg BID PO Last administered on 11/19/16 09: 05; Admin Dose 50 MG; Start 11/18/16 at 17:05 Clopidogrel Bisulfate 75 mg 75 mg DAILY PO Last administered on 11/19/16 12:15 ; Admin Dose 75 MG; Start 11/19/16 at 13:00 Vancomycin HCl/ Sodium Chloride (Vancocin/NS) 150 ml @ 75 mls/hr Q96H IVPB ; Start 11/19/16 at 18:00 SHITAL MCKEON NP Nov 19, 2016 17:15
[2016-11-19] MEDS ORDERED: VANCOMYCIN 750 MG in SOD CHLORIDE 0.9% 150 ML IVPB SCH (18:00)
[2016-11-19] MEDS: ATORVASTATIN 40 MG TAB PO SCH (21:33)
[2016-11-19] MEDS: ZOLPIDEM 5 MG TAB PO PRN (21:33)
[2016-11-20] VITALS (18 sets, daily range): BP systolic 120–171; BP diastolic 58–79; PULSE 75–82; RESP 15–19
[2016-11-20] MEDS: hydrALAzine 20 MG INJ IV PRN (03:38)
[2016-11-20] MEDS: SEVELAMER 800 MG TAB PO SCH ×2 (08:00→11:24)
--- NOTE | 2016-11-20 08:24 | CONS ---
DATE OF ADMISSION: 11/12/2016 DATE OF CONSULTATION: 11/12/2016 REASON FOR CONSULTATION: Antibiotic management. HISTORY OF PRESENT ILLNESS: Nick Thibodeaux is a 61-year-old, male with endstage renal disease on hemodialysis, who presents to the emergency room with complaints of left 5th toe necrosis and significant pain. Pain has gotten significantly worse over the last couple of days. He denies any chest pain, denies shortness of breath. Denies nausea, vomiting, or diarrhea. On evaluation in the emergency room, he was noted to have an elevated troponin of 0.4. Chest x-ray revealed congestive heart failure and opacification throughout the lower lung. He was diagnosed with left 5th toe cellulitis and was started on broad-spectrum antibiotics. PAST MEDICAL HISTORY: Includes coronary artery disease, diabetes, hypertension, endstage renal disease. PAST SURGICAL HISTORY: Status post appendectomy. FAMILY HISTORY: Noncontributory. SOCIAL HISTORY: He is a former smoker. He does not drink or abuse drugs. ALLERGIES: NONE TO PENICILLIN, SULFA, OR FOODS. MEDICATIONS: Per chart. REVIEW OF SYSTEMS: As per HPI. PHYSICAL EXAMINATION: Patient is awake, responsive, essentially chronically ill, in no acute distress. VITAL SIGNS: Stable. He is afebrile. SKIN: Without generalized rash. HEENT: Within normal limits. Patient is blind. NECK: Supple, lymph nodes not palpable. CHEST: Decreased breath sounds at the bases. HEART: Without murmur or gallop. ABDOMEN: Soft, nontender. Without organomegaly, splenomegaly, or masses. EXTREMITIES: Left toe necrosis with erythema extending from the toe to the foot with tenderness. GENITORECTAL: Deferred. NEUROLOGIC: Normal mental status. Decreased sensation in the distal extremities. ANCILLARY LABORATORY DATA: White count 4.6, H\T\H of 10.3/31.4, platelet count 151,000. BUN and creatinine /6.4. Glucose of 86. Sodium 132, chloride 92. Patient was begun on vancomycin and Zosyn. A foot x-ray showed decreased bone mineral density without definite signs of acute osseous abnormality. MRI is more sensitive in evaluating early osteo , extensive atherosclerotic vascular calcifications. Chest x-ray: Mild congestive heart failure with fluid overload, patchy opacification of the right lower lung, which could represent a superimposed infiltrate. Removal of the dialysis catheter. IMPRESSION AND PLAN: Patient has left foot 5th toe gangrene with cellulitis. Will continue him on vancomycin and Zosyn. He needs to be seen by Dr , Podiatry, and Dr for peripheral vascular disease. I will dictate my findings to Dr French. Dictated By: Que Tobias MD JD/eitan/dottie /Document#: [id number]
[2016-11-20 08:53] LABS: CALCIUM 9.7 mg/dl (8.4-10.2); CREATININE 10.24 mg/dl (0.61-1.24); POTASSIUM 5.5 mmol/L (3.5-5.1)
[2016-11-20] MEDS: DOCUSATE SODIUM 100 MG CAP PO SCH (09:00)
[2016-11-20] MEDS: BACITRACIN/POLYMYX 3.5 GM OPH OINT LEFT EYE SCH ×2 (09:00→11:22)
[2016-11-20] MEDS: CLOPIDOGREL 75 MG TAB PO SCH (11:10)
[2016-11-20] MEDS: ASPIRIN 81 MG TAB PO SCH (11:10)
[2016-11-20] MEDS: LOSARTAN 25 MG TAB PO SCH (11:18)
[2016-11-20] MEDS: METOPROLOL 50 MG TAB PO SCH (11:19)
[2016-11-20] MEDS: AMLODIPINE 5 MG TAB PO SCH (11:19)
[2016-11-20] MEDS: NIFEdipine (XL) 60 MG TAB PO SCH (11:20)
--- NOTE | 2016-11-20 13:15 | CONS ---
Date/Time of Note Date/Time of Note DATE: 11/20/16 TIME: 13:14 Assessment/Plan Assessment/Plan Chief Complaint/Hosp Course N0 acute changes, awake, looks comfortable, no fevers, left foot with significant erythema Antibiotics: Ar Oropeza Physical examination: Well-developed well-nourished elderly man who is alert in no distress. Head atraumatic normocephalic sclera nonicteric bugle mucosa dry neck is supple chest rise symmetrical breath sounds clear heart S1-S2 abdomen soft bowel tones present, extremities with left foot erythema and gangrene of the toe Assessment: 1. Left foot cellulitis, fifth toe gangrene===> S/P Advanced endovascular intervention, Fem/pop atherectomy, angioplasty and stenting by Dr. Zaragoza 2. Peripheral vascular disease 3. End-stage renal disease, hemodialysis dependent==> L AVF 4. Hypertension 5. Patchy opacification in the right lower lung per chest x-ray on admission questionable infiltrate Plan: Remain stable, continue antibiotic, follow podiatry and vascular surgery recommendations Discussed with staff Problems: Consultation Date/Type/Reason Admit Date/Time Nov 12, 2016 at 07:20 Type of Consultation: ID Exam/Review of Systems Vital Signs Vitals Vital Signs Date Time Temp Pulse Resp B/P Pulse Ox O2 Delivery O2 Flow Rate FiO2 11/20/16 12:19 82 11/20/16 11:51 98.9 19 169/78 92 Intake and Output 11/19/16 11/19/16 11/20/16 15:00 23:00 07:00 Intake Total 850 ml 300 ml Balance 850 ml 300 ml Results Result Diagram: 11/19/16 0454 11/20/16 0740 Results 24 hrs Laboratory Tests Test 11/20/16 07:40 Sodium Level 140 Potassium Level 5.5 H Chloride Level 94 L Carbon Dioxide Level 25 Anion Gap 27 H Blood Urea Nitrogen 59 H Creatinine 10.24 H Glucose Level 68 L Calcium Level 9.7 Medications Medications Current Medications Amlodipine Besylate (Norvasc) 5 mg BID PO Last administered on 11/20/16 11:19 ; Admin Dose 5 MG; Start 11/12/16 at 11:30 Losartan Potassium (Cozaar) 25 mg DAILY PO Last administered on 11/20/16 11:18 ; Admin Dose 25 MG; Start 11/12/16 at 11:30 Nifedipine (Procardia Xl) 60 mg DAILY PO Last administered on 11/20/16 11:20; Admin Dose 60 MG; Start 11/12/16 at 11:30 Zolpidem Tartrate (Ambien) 5 mg QHS PRN PO INSOMNIA Last administered on 21:33; Admin Dose 5 MG; Start 11/12/16 at 11:30 Hydralazine HCl (Apresoline) 10 mg Q6H PRN IV SBP>170 Last administered on 11/20 03:38; Admin Dose 10 MG; Start 11/12/16 at 11:30 Bacitracin/ Polymyxin B Sulfate (Ak-Poly-Loren Oph Oint) 1 applic TID LEFT EYE Last administered on 11/20/16 11:22; Admin Dose 1 APPLIC; Start 11/12/16 at 13: 00 Morphine Sulfate (morphine) 2 mg Q4H PRN IV PAIN LEVEL 6-10 Last administered on 11/19/16 03:14; Admin Dose 2 MG; Start 11/12/16 at 14:00 Acetaminophen (Tylenol Tab) 650 mg Q4H PRN PO PAIN AND OR ELEVATED TEMP; Start 11/12/16 at 14:00 Atorvastatin Calcium (Lipitor) 40 mg HS PO Last administered on 11/19/16 21:33 ; Admin Dose 40 MG; Start 11/12/16 at 21:00 Aspirin (Aspirin) 81 mg DAILY PO Last administered on 11/20/16 11:10; Admin Dose 81 MG; Start 11/12/16 at 17:30 Epoetin Jorge Luis (Epogen (Esrd)) 3,000 units MoWeFr@17 SC Last administered on 11/18 17:00; Admin Dose 3,000 UNITS; Start 11/15/16 at 17:00 Ondansetron HCl (Zofran Inj) 4 mg Q4H PRN IV NAUSEA AND/OR VOMITING Last administered on 11/19/16 16:06; Admin Dose 4 MG; Start 11/15/16 at 19:30 Docusate Sodium (Colace) 100 mg BID PO Last administered on 11/19/16 21:33; Admin Dose 100 MG; Start 11/17/16 at 21:00 Bisacodyl (Dulcolax) 5 mg DAILY PRN PO CONSTIPATION; Start 11/17/16 at 11:00 Levofloxacin (Levaquin) 250 mg Q48H PO Last administered on 11/18/16 16:00; Admin Dose 250 MG; Start 11/18/16 at 16:00 Metoprolol Tartrate (Lopressor) 50 mg BID PO Last administered on 11/20/16 11: 19; Admin Dose 50 MG; Start 11/18/16 at 17:05 Clopidogrel Bisulfate 75 mg 75 mg DAILY PO Last administered on 11/20/16 11:10 ; Admin Dose 75 MG; Start 11/19/16 at 13:00 Vancomycin HCl/ Sodium Chloride (Vancocin/NS) 150 ml @ 75 mls/hr Q96H IVPB Last administered on 11/19/16 17:43; Admin Dose 75 MLS/HR; Start 11/19/16 at 18 :00 SHITAL MCKEON NP Nov 20, 2016 13:15
--- NOTE | 2016-11-20 14:06 | CONS ---
Date/Time of Note Date/Time of Note DATE: 11/20/16 TIME: 14:05 Assessment/Plan Assessment/Plan Additional Assessment/Plan 1. Left foot cellulitis, fifth toe gangrene 2. Peripheral vascular disease 3. End-stage renal disease, hemodialysis dependent 4. Hypertension 5. Patchy opacification in the right lower lung per chest x-ray on admission questionable infiltrate S/p HD Cont MWF Schedule Anxious to go home Will discuss with Primary Consultation Date/Type/Reason Admit Date/Time Nov 12, 2016 at 07:20 Type of Consultation: Renal Reason for Consultation ESRD 24 HR Interval Summary Free Text/Dictation Anxious to go home Exam/Review of Systems Vital Signs Vitals Vital Signs Date Time Temp Pulse Resp B/P Pulse Ox O2 Delivery O2 Flow Rate FiO2 11/20/16 12:19 82 11/20/16 11:51 98.9 19 169/78 92 Intake and Output 11/19/16 11/19/16 11/20/16 15:00 23:00 07:00 Intake Total 850 ml 300 ml Balance 850 ml 300 ml Exam Constitutional: alert, No distress Respiratory: clear to auscultation, No crackles/rales Cardiovascular: regular rate and rhythm, No edema Gastrointestinal: non-tender, soft Neurological: No lethargic Skin: No diaphoresis Results Result Diagram: 11/19/16 0454 11/20/16 0740 Results 24 hrs Laboratory Tests Test 11/20/16 07:40 Sodium Level 140 Potassium Level 5.5 H Chloride Level 94 L Carbon Dioxide Level 25 Anion Gap 27 H Blood Urea Nitrogen 59 H Creatinine 10.24 H Glucose Level 68 L Calcium Level 9.7 Medications Medications Current Medications Amlodipine Besylate (Norvasc) 5 mg BID PO Last administered on 11/20/16 11:19 ; Admin Dose 5 MG; Start 11/12/16 at 11:30 Losartan Potassium (Cozaar) 25 mg DAILY PO Last administered on 11/20/16 11:18 ; Admin Dose 25 MG; Start 11/12/16 at 11:30 Nifedipine (Procardia Xl) 60 mg DAILY PO Last administered on 11/20/16 11:20; Admin Dose 60 MG; Start 11/12/16 at 11:30 Zolpidem Tartrate (Ambien) 5 mg QHS PRN PO INSOMNIA Last administered on 21:33; Admin Dose 5 MG; Start 11/12/16 at 11:30 Hydralazine HCl (Apresoline) 10 mg Q6H PRN IV SBP>170 Last administered on 11/20 03:38; Admin Dose 10 MG; Start 11/12/16 at 11:30 Bacitracin/ Polymyxin B Sulfate (Ak-Poly-Loren Oph Oint) 1 applic TID LEFT EYE Last administered on 11/20/16 11:22; Admin Dose 1 APPLIC; Start 11/12/16 at 13: 00 Morphine Sulfate (morphine) 2 mg Q4H PRN IV PAIN LEVEL 6-10 Last administered on 11/19/16 03:14; Admin Dose 2 MG; Start 11/12/16 at 14:00 Acetaminophen (Tylenol Tab) 650 mg Q4H PRN PO PAIN AND OR ELEVATED TEMP; Start 11/12/16 at 14:00 Atorvastatin Calcium (Lipitor) 40 mg HS PO Last administered on 11/19/16 21:33 ; Admin Dose 40 MG; Start 11/12/16 at 21:00 Aspirin (Aspirin) 81 mg DAILY PO Last administered on 11/20/16 11:10; Admin Dose 81 MG; Start 11/12/16 at 17:30 Epoetin Jorge Luis (Epogen (Esrd)) 3,000 units MoWeFr@17 SC Last administered on 11/18 17:00; Admin Dose 3,000 UNITS; Start 11/15/16 at 17:00 Ondansetron HCl (Zofran Inj) 4 mg Q4H PRN IV NAUSEA AND/OR VOMITING Last administered on 11/19/16 16:06; Admin Dose 4 MG; Start 11/15/16 at 19:30 Docusate Sodium (Colace) 100 mg BID PO Last administered on 11/19/16 21:33; Admin Dose 100 MG; Start 11/17/16 at 21:00 Bisacodyl (Dulcolax) 5 mg DAILY PRN PO CONSTIPATION; Start 11/17/16 at 11:00 Levofloxacin (Levaquin) 250 mg Q48H PO Last administered on 11/18/16 16:00; Admin Dose 250 MG; Start 11/18/16 at 16:00 Metoprolol Tartrate (Lopressor) 50 mg BID PO Last administered on 11/20/16 11: 19; Admin Dose 50 MG; Start 11/18/16 at 17:05 Clopidogrel Bisulfate 75 mg 75 mg DAILY PO Last administered on 11/20/16 11:10 ; Admin Dose 75 MG; Start 11/19/16 at 13:00 Vancomycin HCl/ Sodium Chloride (Vancocin/NS) 150 ml @ 75 mls/hr Q96H IVPB Last administered on 11/19/16 17:43; Admin Dose 75 MLS/HR; Start 11/19/16 at 18 :00 PIPER FELIX MD Nov 20, 2016 14:06
[2016-11-20] MEDS: LEVOFLOXACIN 250 MG TAB PO SCH (16:09)
[2016-11-20] MEDS: EPOETIN 3000 UNITS/1 ML INJ (ESRD) SC SCH (16:10)
[2016-11-20] MEDS ORDERED: METO-429 PO (17:43)
[2016-11-20] MEDS ORDERED: ATOR40TA68 PO (17:43)
[2016-11-20] MEDS ORDERED: CLOP75TA28 PO (17:43)
--- NOTE | 2016-11-20 19:03 | DS ---
Date/Time of Note Date/Time of Note DATE: 11/20/16 TIME: 18:57 Discharge Summary Admission/Discharge Info Admit Date/Time Nov 12, 2016 at 07:20 Discharge Date/Time Patient Condition: Stable Hx of Present Illness The patient is 61-year-old gentleman with past medical history including end- stage renal disease on hemodialysis patient had his last dialysis yesterday, diabetes mellitus hypertension, coronary artery disease, peripheral vascular disease, blind. Patient presented into to the emergency room with complaints of left fifth toe necrosis and significant pain. The pain gait gets significantly worse over the last couple of days. Patient denies any chest pain denies any shortness of breath denies any nausea vomiting diarrhea. On evaluation in the emergency room patient noted to have elevated troponin of 0.4 , twelve-lead EKG was no ST segment elevation. Chest x-ray revealed CHF and opacification of the right lower lung . Patient was diagnosed with left fifth toe cellulitis and was started on broad-spectrum antibiotics. Patient will be admitted for further evaluation and management. Hospital Course -NSTEMI, Dr. Pike is following in cardiology consultation. -Left fifth toe gangrene with cellulitis, continue antibiotics per ID. Dr. Tobias is following in infection disease consultation. 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 Zaragoza, vascular surgery. Continue Plavix. -Hypertension, Norvasc, Cozaar, Procardia, hydralazine as needed for systolic blood pressure above 170. -End-stage renal disease, continue hemodialysis per nephrology Dr. Newby is following in nephrology consultation. Patient was evaluated by Dr. Zaragoza in vascular surgery and underwent advanced endovascular interventions, from pop arthrectomy, angioplasty and stenting on 11/15. Patient is started on Plavix. Patient will be discharged today. Discussed with Dr. Boyd for who will order vancomycin with hemodialysis for 2 more weeks is recommended by infection disease colleagues. Patient is instructed to follow-up with Dr. Zaragoza in [facility] in 2 weeks. Patient is instructed to follow up on Friday and hemodialysis center plan of care is discussed in detail with patient patient's and patient's daughter over the phone, all questions answered. Patient was discharged with prescription for Plavix atorvastatin and metoprolol. Home Meds Active Scripts Metoprolol Tartrate* (Lopressor*) 50 Mg Tab, 50 MG PO BID for 30 Days, TAB Prov:VIV KING 11/20/16 Atorvastatin* (Atorvastatin*) 40 Mg Tablet, 40 MG PO HS for 30 Days, TAB Prov:VIV KING 11/20/16 Clopidogrel Bisulfate (Clopidogrel) 75 Mg Tablet, 75 MG PO DAILY for 30 Days, TAB 2 Refills Prov:VIV KING 11/20/16 Sevelamer Hcl* (Renagel*) 800 Mg Tab, 800 MG PO WITH MEALS, #90 Prov:VIV KING 01/20/15 Reported Medications Metoprolol Succinate* (Toprol XL*) 25 Mg Tab.sr.24h, 25 MG PO DAILY, #30 TAB 11/12/16 Losartan Potassium* (Losartan Potassium*) 25 Mg Tablet, 25 MG PO DAILY, TAB 11/12/16 Amlodipine Besylate* (Norvasc*) 5 Mg Tablet, 5 MG PO BID, TAB 11/12/16 Nifedipine* (Afeditab CR*) 60 Mg Tablet.er, 60 MG PO DAILY, #30 TAB.SA 06/07/16 Zolpidem Tartrate* (Zolpidem Tartrate*) 5 Mg Tablet, 5 MG PO QHS Y for INSOMNIA , #30 TAB 06/07/16 Calcium Acetate* (Calcium Acetate*) 667 Mg Capsule, 667 MG PO WITH MEALS, #30 CAP 03/12/16 Cinacalcet* (Sensipar*) 30 Mg Tab, 30 MG PO BID, TAB 03/12/16 Discontinued Reported Medications Amiodarone Hcl* (Amiodarone Hcl*) 200 Mg Tablet, 200 MG PO DAILY, #30 TAB 11/12/16 Atorvastatin Calcium* (Atorvastatin Calcium*) 20 Mg Tablet, 20 MG PO QHS, #30 TAB 06/07/16 Follow-up Plan Follow-up with Dr. Zaragoza in [facility] prevention center in 2 weeks. Primary Care Provider Joaquin Newby MD Pending Labs Laboratory Tests Test 11/20/16 07:40 Sodium Level 140mmol/L (135-144) Potassium Level 5.5mmol/L (3.5-5.1) Chloride Level 94mmol/L (97-110) Carbon Dioxide Level 25mmol/L (21-31) Anion Gap 27 (8-16) Blood Urea Nitrogen 59mg/dl (7-20) Creatinine 10.24mg/dl (0.61-1.24) Glucose Level 68mg/dl (70-220) Calcium Level 9.7mg/dl (8.4-10.2) VIV KING Nov 20, 2016 19:03
--- NOTE | 2016-12-06 12:20 | OPR ---
DATE OF OPERATION: 11/15/2016 This is another dictation on this patient. SURGEON: Dr. Jarrett Zaragoza. PREOPERATIVE DIAGNOSIS: Left lower extremity gangrene. POSTOPERATIVE DIAGNOSIS: Left lower extremity gangrene. ANESTHESIA: Local with sedation. ESTIMATED BLOOD LOSS: Minimal. COMPLICATIONS: None. HEPARIN: Recorded CONTRAST: As recorded. ACCESS: Right common femoral artery 7-Maltese sheath CLOSURE: Manual compression and the Angio-Seal closure device. SUPERVISION: Under physician's supervision, moderate sedation was administered intravenously under continuous monitoring by the interventional team and attending physician. Pulse oximeter, heart rate and blood pressures were continuously monitored by interventional surgeon. PHYSICIAN SPENT TIME: 90 minutes of bxqk-rz-xpot sedation time with the patient. INDICATIONS: This is a 61-year-old gentleman who presented with left lower extremity gangrene, in which he underwent noninvasive vascular studies, identified severe infrarenal disease. The patient had been informed of alternatives, risks, benefits of angiogram, angioplasty, stenting and atherectomy and risks included, but not limited to, bleeding, thrombosis, embolization, myocardial infarction, , stroke, device malfunction, infection, nephrotoxicity and patient has agreed to proceed. OPERATIVE PROCEDURE: 1. Ultrasound-guided access of the right common femoral artery. 2. Aortoiliac angiogram with left lower aortoiliac angiogram. 3. Third order selection of the left common femoral artery. 4. Left lower extremity angiogram. 5. Left femoral popliteal atherectomy. 6. Left femoral/popliteal angioplasty. 7. Left femoral/popliteal Innova stent 6 x 100. FINDINGS: 1. Bilateral renal arteries are patent. 2. Infrarenal aorta is patent. Bilateral common iliac, external iliac, and internal iliac arteries are patent with calcification. 3. Patient has a pacemaker on the right groin area being introduced in the common femoral vein. 4. Right common femoral artery is patent. 5. Right proximal superficial femoral artery is patent. 6. Right superficial profunda femoral artery is patent with calcification. 7. Left common femoral artery is patent. 8. Left superficial femoral artery patent with calcification with uqmr-df-uwqllsnt stenosis near the adductor canal. 9. Left profunda femoral artery patent with calcification and moderate disease. 10. Left above-knee popliteal artery with severe calcification and moderate severe stenosis. 11. Left at-knee popliteal artery with severe calcification with wbmctfxx-yu-iudsdv stenosis. 12. Left below-knee popliteal artery is patent with some calcification. 13. Left tibioperoneal trunk with severe disease in the proximal aspect and then it is patent to the bifurcation of the peroneal and posterior tibial artery. 14. Ismgscdx-ej-qncwcp disease of the peroneal artery which is discontinuous nursing home through the lower leg. 15. Left posterior tibial artery with moderate disease throughout. 16. Left anterior tibial artery patent with calcification and moderate disease distally toward the dorsalis pedis artery. 17. Left common plantar artery with pisrhmcr-cb-myxtpt disease with calcification. 18. Left lateral and medial plantar arteries are not well visualized. OPERATIVE PROCEDURE: The patient was brought into the angio suite, and positioned supine position on the fluoroscopic table. Sedation was administered without any complications. The right groin was shaved, prepped, and draped in usual standard sterile fashion. Time-out and appropriate site was marked and confirmed. Local anesthesia was infiltrated in the region of the right common femoral artery. The artery was then cannulated with a micro-access needle under ultrasound guidance and a guidewire was advanced into the iliac artery under fluoroscopic guidance. The needle was then removed and a marker catheter was placed. A dotSyntax wire was then passed into the infrarenal aorta under fluoroscopic guidance, followed by a short 5-Maltese sheath over the wire. The sheath was then appropriately flushed with heparinized saline solution. Omni Flush catheter was then passed into the suprarenal aorta and aortogram and imaging of the iliac arteries was performed. Findings are noted above. At this point, the Omni Flush catheter was used to select the left common femoral artery in a third order selection, and left lower extremity angiogram was performed. It was identified that the patient has severe calcification of the above-knee popliteal and at-knee popliteal artery with disease in the distal aspect of the superficial femoral artery. Therefore, decision was made to go ahead and perform atherectomy, balloon angioplasty of these segment. We went ahead and exchanged the sheath to a 7-Maltese sheath and placed it in the superficial femoral artery. At this point, using a Glidewire and NaviCross guiding catheter, we were able to cross the significant stenosis, which was a bit challenging and we were able to place a 0.014 wire in the posterior tibial artery. At this point, the patient was appropriately heparinized and using the Jetstream Atherectomy device, we performed atherectomy of the femoral popliteal segment. Upon the completion of this, we went ahead and placed a 6 x 100 Innova sten, as the patient still had some residual calcification in the at-knee pop and above-knee popliteal artery. Upon the completion of this, we went ahead and performed balloon angioplasty of this segment and completion angiogram identified the patient has improved inflow into the lower leg. Subsequently, the patient had adequate lower extremity Doppler signals of the posterior tibial and anterior tibial artery. At this point, we went ahead and removed all catheters, wires, sheath and Angio-Seal closure device was deployed in the right common femoral artery. Patient tolerated procedure well, was taken to the postanesthesia care unit in stable condition. Dictated By: Jarrett Zaragoza MD /eitan/denisha /Document#: [id number]
== END 2016-11-20 18:45 | disposition home or self-care (01) | DRG 270 ==
LOC: E/R 05:35 → PP2 07:20 → MS4 18:55
PROVIDERS: ADMIT Internal Medicine; ATTEND Internal Medicine
PROC: 04CL3ZZ Extirpation of Matter from Left Femoral Artery, Percutaneous Approach (ICD-10-PCS; principal; 2016-11-15 16:30)
PROC: 04CN3ZZ Extirpation of Matter from Left Popliteal Artery, Percutaneous Approach (ICD-10-PCS; 2016-11-15 16:30)
PROC: 047N3DZ Dilation of Left Popliteal Artery with Intraluminal Device, Percutaneous Approach (ICD-10-PCS; 2016-11-15 16:30)
PROC: 047L3ZZ Dilation of Left Femoral Artery, Percutaneous Approach (ICD-10-PCS; 2016-11-15 16:30)
DX: I70.262 Atherosclerosis of native arteries of extremities with gangrene, left leg (principal); N18.6 End stage renal disease; I21.4 Non-ST elevation (NSTEMI) myocardial infarction; I12.0 Hypertensive chronic kidney disease with stage 5 chronic kidney disease or end stage renal disease; E11.52 Type 2 diabetes mellitus with diabetic peripheral angiopathy with gangrene; L03.116 Cellulitis of left lower limb; E11.42 Type 2 diabetes mellitus with diabetic polyneuropathy; I73.9 Peripheral vascular disease, unspecified; Z87.891 Personal history of nicotine dependence; I25.10 Atherosclerotic heart disease of native coronary artery without angina pectoris; D64.9 Anemia, unspecified; I70.201 Unspecified atherosclerosis of native arteries of extremities, right leg; R91.8 Other nonspecific abnormal finding of lung field; H54.0 Blindness, both eyes; E11.319 Type 2 diabetes mellitus with unspecified diabetic retinopathy without macular edema
CPT/HCPCS: 36415; 37246; 71010; 73706; 75625; 75960; 80048; 80053; 80202; 82550; 82553; 83036; 83605; 84484; 85025; 85610; 85730; 87040; 87081; 90935; 93005; 93922; 93970; 96374; 96375; C1714; C1725; C1769; C1875; C1894; J0360; J0886; J1644; J2250; J2270; J2405; J2543; J3010; J3370; J7030; J7040; Q9967

== ENCOUNTER 2017-02-10 20:22 | Inpatient (IN) | payer MEDICARE, OTHER ==
[~2017-02-10] VITALS: Ht 167.6 cm; Wt 64.5 kg
[~2017-02-10 20:22] MED LIST changes: +AMLO5TAB4 PO; -ATOR20TA38 PO; +ATOR40TA68 PO; +CLOP75TA28 PO; +LOSA25TA5 PO; +METO-335 PO; +METO-429 PO
[2017-02-10 21:24] VITALS: Ht 167.6 cm; Wt 64.5 kg
[2017-02-10] MEDS ORDERED: PIPER-TAZO 3.375 GM IV (PMX) 100 ML IVPB STA (22:08)
[2017-02-10] MEDS ORDERED: ONDANSETRON 4 MG INJ IV STA (22:15)
[2017-02-10] MEDS ORDERED: HYDROmorphONE 1 MG/ML SYG IV STA (22:15)
[2017-02-10 23:02] LABS: ABNORMAL IP MESSAGE 1; BASOPHIL # 0.1 10^3/ul (0.0-0.1); BASOPHILS % 0.7 % (0.0-2.0); EOSINOPHILS # 0.1 10^3/ul (0.0-0.5); EOSINOPHILS % 1.4 % (0.0-7.0); HEMATOCRIT 33.1 % (42.0-52.0); HEMOGLOBIN 10.4 g/dl (14.0-18.0); LYMPHOCYTES # 0.4 10^3/ul (0.8-2.9); MEAN CORPUSCULAR HEMOGLOBIN 27.7 pg (29.0-33.0); MEAN CORPUSCULAR HGB CONC 31.4 g/dl (32.0-37.0); MEAN CORPUSCULAR VOLUME 88.3 fl (82.0-101.0); MEAN PLATELET VOLUME 9.3 fl (7.4-10.4); MONOCYTE # 0.8 10^3/ul (0.3-0.9); MONOCYTES % 11.2 % (0.0-11.0); NEUTROPHIL # 5.9 10^3/ul (1.6-7.5); NEUTROPHILS % 81.1 % (39.0-77.0); PLATELET COUNT 359 10^3/UL (140-415); POSITIVE DIFF @See below; RED BLOOD COUNT 3.75 10^6/ul (4.70-6.10); RED CELL DISTRIBUTION WIDTH 18.1 % (11.5-14.5); WHITE BLOOD COUNT 7.2 10^3/ul (4.8-10.8)
[2017-02-10 23:26] LABS: ALBUMIN 4.1 g/dl (3.3-4.9); ALBUMIN/GLOBULIN RATIO 1.02; BILIRUBIN,INDIRECT 0.1 mg/dl (0-1.1); BILIRUBIN,TOTAL 0.1 mg/dl (0.2-1.3); CALCIUM 8.3 mg/dl (8.4-10.2); CREATININE 8.4 mg/dl (0.61-1.24); POTASSIUM 5.5 mmol/L (3.5-5.1); TOTAL PROTEIN 8.1 g/dl (6.1-8.1)
--- NOTE | 2017-02-10 23:37 | ERA ---
ER Documentation Chief Complaint Date/Time DATE: 02/10/17 TIME: 23:35 Chief Complaint L foot gangrene; sent by Dr. Odin MEJIA This is a very pleasant gentleman sent in by primary care physician for left foot gangrene. Patient's primary care physician states that he is failed outpatient antibiotic regimen. History of diabetes mellitus and peripheral vascular disease. Complains of pain in the foot as well. No nausea no vomiting no fevers no chills. No other current complaints. ROS All systems reviewed and are negative except as per history of present illness. Medications Home Meds Active Scripts Metoprolol Tartrate* (Lopressor*) 50 Mg Tab, 50 MG PO BID for 30 Days, TAB Prov:VIV KING 11/20/16 Atorvastatin* (Atorvastatin*) 40 Mg Tablet, 40 MG PO HS for 30 Days, TAB Prov:DAVID KINGA 11/20/16 Clopidogrel Bisulfate (Clopidogrel) 75 Mg Tablet, 75 MG PO DAILY for 30 Days, TAB 2 Refills Prov:VIV KING 11/20/16 Sevelamer Hcl* (Renagel*) 800 Mg Tab, 800 MG PO WITH MEALS, #90 Prov:VIV KING 01/20/15 Reported Medications Metoprolol Succinate* (Toprol XL*) 25 Mg Tab.sr.24h, 25 MG PO DAILY, #30 TAB 11/12/16 Losartan Potassium* (Losartan Potassium*) 25 Mg Tablet, 25 MG PO DAILY, TAB 11/12/16 Amlodipine Besylate* (Norvasc*) 5 Mg Tablet, 5 MG PO BID, TAB 11/12/16 Nifedipine* (Afeditab CR*) 60 Mg Tablet.er, 60 MG PO DAILY, #30 TAB.SA 06/07/16 Zolpidem Tartrate* (Zolpidem Tartrate*) 5 Mg Tablet, 5 MG PO QHS Y for INSOMNIA , #30 TAB 06/07/16 Calcium Acetate* (Calcium Acetate*) 667 Mg Capsule, 667 MG PO WITH MEALS, #30 CAP 03/12/16 Cinacalcet* (Sensipar*) 30 Mg Tab, 30 MG PO BID, TAB 03/12/16 Allergies Allergies: Coded Allergies: fluorescein (Verified Allergy, Unknown, 11/12/16) PMhx/Soc History of Surgery: Yes (left AV shunt) Anesthesia Reaction: No Hx Neurological Disorder: No Hx Respiratory Disorders: No Hx Cardiac Disorders: Yes (HTN) Hx Psychiatric Problems: No Hx Miscellaneous Medical Probl: Yes (DM, HLD, CKD (HD on MWF)) Hx Alcohol Use: No Hx Substance Use: No Hx Tobacco Use: No Smoking Status: Never smoker Physical Exam Vitals Vital Signs Date Time Temp Pulse Resp B/P Pulse Ox O2 Delivery O2 Flow Rate FiO2 02/10/17 21:24 95.7 75 20 168/72 97 Physical Exam Const: [] Head: Atraumatic Eyes: Normal Conjunctiva ENT: Normal External Ears, Nose and Mouth. Neck: Full range of motion..~ No meningismus. Resp: Clear to auscultation bilaterally Cardio: Regular rate and rhythm, no murmurs Abd: Soft, non tender, non distended. Normal bowel sounds Skin: No petechiae or rashes Back: No midline or flank tenderness Ext: Left foot shows evidence of dry gangrene. Poor pulses but present Neur: Awake and alert Psych: Normal Mood and Affect Result Diagram: 02/10/17223402/10/172234 Results 24 hrs Laboratory Tests Test 02/10/17 22:35 White Blood Count 7.210^3/ul Red Blood Count 3.7510^6/ul Hemoglobin 10.4g/dl Hematocrit 33.1% Mean Corpuscular Volume 88.3fl Mean Corpuscular Hemoglobin 27.7pg Mean Corpuscular Hemoglobin Concent 31.4g/dl Red Cell Distribution Width 18.1% Platelet Count 40048^3/UL Mean Platelet Volume 9.3fl Neutrophils % 81.1% Lymphocytes % 5.0% Monocytes % 11.2% Eosinophils % 1.4% Basophils % 0.7% Nucleated Red Blood Cells % 0.0/100WBC Neutrophils # 5.910^3/ul Lymphocytes # 0.410^3/ul Monocytes # 0.810^3/ul Eosinophils # 0.110^3/ul Basophils # 0.110^3/ul Nucleated Red Blood Cells # 0.010^3/ul Sodium Level 139mmol/L Potassium Level 5.5mmol/L Chloride Level 98mmol/L Carbon Dioxide Level 29mmol/L Anion Gap 18 Blood Urea Nitrogen 34mg/dl Creatinine 8.40mg/dl Glucose Level 106mg/dl Calcium Level 8.3mg/dl Total Bilirubin 0.1mg/dl Direct Bilirubin 0.00mg/dl Indirect Bilirubin 0.1mg/dl Aspartate Amino Transf (AST/SGOT) 18IU/L Alanine Aminotransferase (ALT/SGPT) 20IU/L Alkaline Phosphatase 270IU/L Total Protein 8.1g/dl Albumin 4.1g/dl Globulin 4.00g/dl Albumin/Globulin Ratio 1.02 Lipase 117U/L Current Medications Medications (Trade) Dose Ordered Sig/Loy Route PRN Reason Start Time Stop Time Status Last Admin Dose Admin Piperacillin Sod/ Tazobactam Sod (Zosyn 3.375gm/ 100 ml (Pmx)) 100 ml @ 200 mls/hr ONCE STAT IVPB 02/10/17 22:08 02/10/17 22:37 DC 02/10/17 22:55 Hydromorphone HCl (Dilaudid) 1 mg ONCE STAT IV 02/10/17 22:15 02/10/17 22:16 DC 02/10/17 22:52 Ondansetron HCl (Zofran Inj) 4 mg ONCE STAT IV 02/10/17 22:15 02/10/17 22:16 DC 02/10/17 22:50 Procedures/MDM Medical decision-making: Very pleasant patient has left foot gangrene. Started on antibiotics. Patient will be admitted to medical surgical floor to Dr. Hutson Departure Diagnosis: Primary Impression: Toe gangrene Condition: Serious JESENIA MCDANIELS Feb 10, 2017 23:37
[2017-02-11 00:48] VITALS: BP 183/78; PULSE 75; RESP 20
[2017-02-11 02:00] VITALS: BP 169/77; RESP 20
[2017-02-11] MEDS ORDERED: GLUCOSE GEL 15 GRAM TUBE BUCCAL PRN (02:00)
[2017-02-11] MEDS ORDERED: DEXTROSE 50% 50 ML SYRINGE IV PRN ×2 (02:00)
[2017-02-11] MEDS ORDERED: GLUCAGON 1 MG INJ IM PRN (02:00)
[2017-02-11] MEDS: ACCU-CHEK XX SCH ×2 (02:00)
[2017-02-11] MEDS ORDERED: GLUCOSE GEL 15 GRAM TUBE PO PRN ×2 (02:00)
[2017-02-11] MEDS: morphine 2 MG INJ IV PRN ×4 (03:54→18:18)
--- NOTE | 2017-02-11 06:11 | CONS ---
Date/Time of Note Date/Time of Note DATE: 02/11/17 TIME: 06:07 Assessment/Plan Assessment/Plan Additional Assessment/Plan 60 yo Male with 1) Left foot/toe Gangrene 2) ESRD on HD MWF 3) Hyperkalemia 4) HTN, Chronic 5) DM with Renal Complication ESRD 6) Legally blind status 7) Mineral Bone disease, CKD 8) Anemia, Chronic, ESRD Will f/u chemistry this am Pt had HD yesterday at outside facility HD MWF SChedule STACIE with HD 3x week F/u Phos, Renal ADA diet, Cont phos binder BP elevated, resume outpt HTN Rx Dose IV abx to ESRD. Given Zosyn last night in ED Consultation Date/Type/Reason Admit Date/Time Feb 10, 2017 at 23:00 Date of Consultation: Feb 11, 2017 Type of Consultation: Renal Reason for Consultation ESRD Referring Provider: POLY THRASHER MD Hx of Present Illness 61 yo male with hx of DM with Renal complication, ESRD, Chronic HTN, PVD, Legally blind, S/p HD yesterday who was sent to [facility] with left toe gangrene. Pt S /p IV Abx Rx in ED. Nephrology consulted for management of ESRD. PT does not have any complaints except pain in extremity. No Fever or chills,No CP or SOB, NO abdominal pain. Constitutional: No requiring O2 Past Medical History Medical History: diabetes, hypertension, renal disease Past Surgical History Past Surgical Hx: appendectomy, other (LEft avF) Family History Significant Family History: no pertinent family hx Social History Alcohol Use: none Smoking Status: Former smoker Drug Use: none Exam/Review of Systems Vital Signs Vitals Vital Signs Date Time Temp Pulse Resp B/P Pulse Ox O2 Delivery O2 Flow Rate FiO2 02/11/17 02:00 98.4 73 20 169/77 96 02/11/17 00:48 Room Air Exam Constitutional: alert, oriented, No distress Psych: No anxiety Head: atraumatic, normocephalic Eyes: EOMI ENMT: mucosa pink and moist Neck: No jvd Respiratory: clear to auscultation, No diminished breath sounds, No labored breathing Cardiovascular: regular rate and rhythm, No edema Gastrointestinal: non-tender, soft, No rebound or guarding Extremities: other (LEFT UE AVF, Good thrill. Left little toe gangrene. ), No edema Neurological: 911 EM[employer] DISPATCHER II-XII intact, nl mental status, No confused, No lethargic Skin: nl turgor, No diaphoresis Results Result Diagram: 02/10/17223402/10/172234 Results 24 hrs Laboratory Tests Test 02/10/17 22:35 White Blood Count 7.2 # Red Blood Count 3.75 #L Hemoglobin 10.4 L Hematocrit 33.1 #L Mean Corpuscular Volume 88.3 Mean Corpuscular Hemoglobin 27.7 L Mean Corpuscular Hemoglobin Concent 31.4 L Red Cell Distribution Width 18.1 H Platelet Count 359 # Mean Platelet Volume 9.3 Neutrophils % 81.1 H Lymphocytes % 5.0 L Monocytes % 11.2 H Eosinophils % 1.4 Basophils % 0.7 Nucleated Red Blood Cells % 0.0 Neutrophils # 5.9 Lymphocytes # 0.4 L Monocytes # 0.8 Eosinophils # 0.1 Basophils # 0.1 Nucleated Red Blood Cells # 0.0 Sodium Level 139 Potassium Level 5.5 H Chloride Level 98 Carbon Dioxide Level 29 Anion Gap 18 H Blood Urea Nitrogen 34 H Creatinine 8.40 H Glucose Level 106 Hemoglobin A1c 5.1 Calcium Level 8.3 L Total Bilirubin 0.1 L Direct Bilirubin 0.00 Indirect Bilirubin 0.1 Aspartate Amino Transf (AST/SGOT) 18 Alanine Aminotransferase (ALT/SGPT) 20 Alkaline Phosphatase 270 H Total Protein 8.1 Albumin 4.1 Globulin 4.00 H Albumin/Globulin Ratio 1.02 Lipase 117 Medications Medications Current Medications Morphine Sulfate (morphine) 2 mg Q4H PRN IV pain Last administered on t 03:54; Admin Dose 2 MG; Start 02/11/17 at 01:30 Ondansetron HCl (Zofran Inj) 4 mg Q6H PRN IV NAUSEA AND/OR VOMITING; Start 02/18 at 01:30 Diagnostic Test (Pha) (Accu-Chek) 1 ea 02 XX ; Start 02/11/17 at 02:00 Diagnostic Test (Pha) (Accu-Chek) 1 ea 02 XX ; Start 02/11/17 at 02:00 Miscellaneous Information 1 ea NOTE XX ; Start 02/11/17 at 02:00 Glucose (Glutose) 15 gm Q15M PRN PO DECREASED GLUCOSE; Start 02/11/17 at 02:00 Glucose (Glutose) 22.5 gm Q15M PRN PO DECREASED GLUCOSE; Start 02/11/17 at 02: 00 Dextrose (D50w Syringe) 25 ml Q15M PRN IV DECREASED GLUCOSE; Start 02/11/17 at 02:00 Dextrose (D50w Syringe) 50 ml Q15M PRN IV DECREASED GLUCOSE; Start 02/11/17 at 02:00 Glucagon (Glucagen) 1 mg Q15M PRN IM DECREASED GLUCOSE; Start 02/11/17 at 02: 00 Glucose (Glutose) 15 gm Q15M PRN BUCCAL DECREASED GLUCOSE; Start 02/11/17 at 02:00 PIPER FELIX MD Feb 11, 2017 06:10
[2017-02-11 07:43] VITALS: BP 156/69; RESP 18
[2017-02-11] MEDS: INSULIN ASPART [NOVOLOG] 3 ML PEN SC SCH ×4 (08:07→21:00)
--- NOTE | 2017-02-11 13:17 | HP ---
DATE OF ADMISSION: 02/10/2017 CHIEF COMPLAINT: Left foot gangrene. The patient was sent from primary care physician's office, Dr Elva Newby. HISTORY OF PRESENT ILLNESS: The patient is a 61-year-old gentleman known to me from previous admiss ion. The patient is with history of end-stage renal disease, hemodialysis dependent, hypertension, legally blind, hyperlipidemia. The patient was admitted in November for a left fifth toe gangrene with cellulitis and patient underwent vascular intervention by Dr. Zaragoza and was discharged home on P lavix and received treatment with intravenous antibiotics. The patient is also with history of iris re peripheral vascular disease. The patient was evaluated in the emergency room and noted to have e levated potassium. The patient was also started on broad spectrum antibiotics and admitted for furt her evaluation and management for left foot gangrene. The patient denies any fever and chills. Com [place] of occasional shortness of breath. Denies any chest pain, denies any nausea or vomiting. PAST MEDICAL HISTORY: Positive for coronary artery disease, diabetes, hypertension, end-stage renal disease, severe peripheral vascular disease, hyperlipidemia. PAST SURGICAL HISTORY: Status post appendectomy, status post left AV fistula creation. FAMILY HISTORY: No pertinent family history noted. SOCIAL HISTORY: The patient is a former smoker. Denies any alcohol use, denies any illicit drug us e. ALLERGIES: THE PATIENT IS ALLERGIC TO FLUORESCEIN. HOME MEDICATIONS: Include: 1. Metoprolol. 2. Atorvastatin. 3. Plavix. 4. Renagel. 5. Cozaar. 6. Amlodipine. 7. Ambien. 8. Calcium acetate. 9. Sensipar. REVIEW OF SYSTEMS: A 12-point review of systems is negative unless what is mentioned in the HPI. PHYSICAL ASSESSMENT: GENERAL: Well-developed, well-nourished female, currently is awake, alert and in no acute distress. VITAL SIGNS: Temperature is 98.7, pulse is 72, blood pressure is 156/69, respiratory rate 18, oxyge n saturation 94% on room air. HEENT: Head is atraumatic, normocephalic. The patient is legally blind. Oral mucosa is pink and m oist. NECK: Supple, no cervical lymphadenopathy, no thyromegaly. CHEST: Lungs clear bilaterally, slightly diminished at the bases. CARDIOVASCULAR: Normal S1, S2. No murmurs, gallops, clicks, rubs noted. ABDOMEN: Round, flat, nondistended, nontender. Bowel sounds present in all 4 quadrants. EXTREMITIES: The patient has a left upper extremity AV fistula with a palpable thrill and audible b ruit. Left lower extremity with gangrenous heel and gangrenous tip of the fifth and third left toes , and also a gangrenous wound on the plantar surface of the left foot as well as a small gangrenous ulcer on the right big toe medial side. Pulses are weak bilaterally. NEUROLOGICAL: The patient is awake, alert, moves all extremities. No focal deficits noted. SKIN: There is no rash, petechiae. LABORATORY DATA: On admission, CBC: White blood cells 7.2, hemoglobin 10.4, hematocrit 33.1, plate lets 359. Chemistry: Sodium is 139, potassium 5.5, chloride 98, carbon dioxide 29, anion gap 18, B UN is 34, creatinine 8.4, glucose 106. AST is 18, ALT is 20, alkaline phosphate 270, lipase is 117. Hemoglobin A1c is 5.1. ASSESSMENT AND PLAN: 1. Left foot multiple gangrenous wounds. I am going to ask Dr. Zaragoza to see the patient in vas cular surgery consultation, Dr. Jackman to see the patient in podiatry consultation. Dr. Tobias will be following the patient from infectious disease standpoint. We will continue the patient on broad spectrum antibiotics. 2. End-stage renal disease, hemodialysis dependent. Dr. Newby will be following the patient in nephr ology consultation. Continue on hemodialysis. 3. Hypertension. Continue home antihypertensive medication. Monitor blood pressure. 4. Legally blind status. 5. Anemia of chronic disease. 6. Severe peripheral vascular disease. Will continue morphine p.r.n. for pain and Zofran p.r.n. fo r nausea. Continue heparin for deep venous thrombosis prophylaxis. Further recommendations based o n clinical course. Plan of care discussed with Dr. Thrasher. Dictated By: VIV KING [employer] for POLY THRASHER MD SR/NTS Conf#: [id number] DID#: [id number] CC: POLY THRASHER MD;*EndCC*
[2017-02-11 14:26] VITALS: BP 175/82; RESP 20
[2017-02-11] MEDS ORDERED: VANCOMYCIN IV PER PHARMACY XX SCH (16:30)
--- NOTE | 2017-02-11 16:31 | RADRPT ---
PROCEDURE: XR Chest. CLINICAL INDICATION: Pneumonia TECHNIQUE: AP view of the chest were obtained. COMPARISON: June 07, 2016 FINDINGS: There is cardiomegaly and calcified atherosclerosis of the aortic arch. There are 2 leads projecting over the inferior right heart. Recommend clinical correlation. There has been interval removal of l eft-sided dialysis catheter. There is pulmonary vascular congestion. There is no pleural effusion or pneumothorax. There is patchy opacity at the right lung base concerning for pneumonia. Follow-up is recommended. IMPRESSION: Patchy opacity at the right lung base concerning for pneumonia. Follow-up is recommended. Interval removal of the right-sided dialysis catheter. 2 leads projecting over the inferior right heart extending from below the diaphragm. Recommend clini evonne correlation. Cardiomegaly and calcified atherosclerosis of the aortic arch as well as pulmonary vascular congesti on. RPTAT: GG .Rena Adkins MD, Date Time Electronically viewed and signed by .Rena Adkins MD, on 02/11/2017 16:31 .G/
--- NOTE | 2017-02-11 16:41 | CONS ---
Date/Time of Note Date/Time of Note DATE: 02/11/17 TIME: 16:35 Assessment/Plan Assessment/Plan Problems: (1) Toe gangrene (2) Toe cyanosis (3) Peripheral vascular disease (4) Blindness (5) Hypertension Status: Acute Additional Assessment/Plan Patient is being evaluated by Dr. Zaragoza (vascular surgery). Patient will require surgery on his left foot but I will need to get full assessment of the arterial supply to his left foot. At this time, Betadine paint of the gangrenous tissue of the left foot be done. Non weight bearing left foot at this time. I have discussed this with patient in great detail and also discussed plan with admitting MD. Patient will be followed in house. Thank you again for involving me in the care of this patient. If you have any questions regarding this case, please feel free to contact me at pager: [phone] or reach me at mobile: [phone]. Consultation Date/Type/Reason Admit Date/Time Feb 10, 2017 at 23:00 Date of Consultation: Feb 11, 2017 Type of Consultation: Foot and ankle surgery Reason for Consultation Evaluation of left foot gangrene Hx of Present Illness Thank you very much for your kind consultation. As you very well know, this is a 61-year-old gentleman with multiple medical problems, including history of end -stage renal disease, peripheral vascular disease, hemodialysis dependent, hypertension, legally blind, hyperlipidemia. The patient was admitted in November for a left fifth toe gangrene with cellulitis and patient underwent vascular intervention by Dr. Zaragoza and was discharged home on Plavix and received treatment with intravenous antibiotics. The patient was evaluated in the emergency room and noted to have elevated potassium. The patient was also started on broad spectrum antibiotics and admitted for further evaluation and management for left foot gangrene. Today he reports "lots of pain" in his left foot. The patient denies any fever and chills. Complains of occasional shortness of breath. Denies any chest pain, denies any nausea or vomiting. Constitutional: no complaints, No requiring O2 Eyes: no complaints ENT: no complaints Psychological: No anxiety Past Medical History As per history of present illness. Medical History: diabetes, hypertension, renal disease Past Surgical History As per history of present illness. Past Surgical Hx: appendectomy, other (LEft avF) Social History As per history of present illness. Alcohol Use: none Smoking Status: Former smoker Drug Use: none Exam/Review of Systems Vital Signs Vitals Vital Signs Date Time Temp Pulse Resp B/P Pulse Ox O2 Delivery O2 Flow Rate FiO2 02/11/17 14:26 98.4 77 20 175/82 97 02/11/17 00:48 Room Air Intake and Output 02/10/17 02/10/17 02/11/17 15:00 23:00 07:00 Intake Total 100 ml Balance 100 ml Exam GENERAL: Patient is in no acute distress laying supine in bed VASC: non palpable DP and PT b/l LEs; increased temp gradient b/l LEs; sig delayed CFT NEURO: decreased sensation to sharp, dull, vib and temp stimuli, normal DTRs DERM: gangrene of left foot including fifth toe, heel, midfoot with mult excoriations of the rest of the left foot; no erythema noted; dry skin present; no fluctuance ORTHO: tender to palpation left foot; rectus foot type with contracted toes IMAGING: reviewed LABS: reviewed Results Result Diagram: 02/10/17223402/10/172234 Results 24 hrs Laboratory Tests Test 02/10/17 22:35 02/11/17 08:01 02/11/17 12:06 White Blood Count 7.2 # Red Blood Count 3.75 #L Hemoglobin 10.4 L Hematocrit 33.1 #L Mean Corpuscular Volume 88.3 Mean Corpuscular Hemoglobin 27.7 L Mean Corpuscular Hemoglobin Concent 31.4 L Red Cell Distribution Width 18.1 H Platelet Count 359 # Mean Platelet Volume 9.3 Neutrophils % 81.1 H Lymphocytes % 5.0 L Monocytes % 11.2 H Eosinophils % 1.4 Basophils % 0.7 Nucleated Red Blood Cells % 0.0 Neutrophils # 5.9 Lymphocytes # 0.4 L Monocytes # 0.8 Eosinophils # 0.1 Basophils # 0.1 Nucleated Red Blood Cells # 0.0 Sodium Level 139 Potassium Level 5.5 H Chloride Level 98 Carbon Dioxide Level 29 Anion Gap 18 H Blood Urea Nitrogen 34 H Creatinine 8.40 H Glucose Level 106 Hemoglobin A1c 5.1 Calcium Level 8.3 L Total Bilirubin 0.1 L Direct Bilirubin 0.00 Indirect Bilirubin 0.1 Aspartate Amino Transf (AST/SGOT) 18 Alanine Aminotransferase (ALT/SGPT) 20 Alkaline Phosphatase 270 H Total Protein 8.1 Albumin 4.1 Globulin 4.00 H Albumin/Globulin Ratio 1.02 Lipase 117 Bedside Glucose 92 94 Medications Medications Current Medications Morphine Sulfate (morphine) 2 mg Q4H PRN IV pain Last administered on t 13:27; Admin Dose 2 MG; Start 02/11/17 at 01:30 Ondansetron HCl (Zofran Inj) 4 mg Q6H PRN IV NAUSEA AND/OR VOMITING; Start 02/18 at 01:30 Diagnostic Test (Pha) (Accu-Chek) 1 ea 02 XX ; Start 02/11/17 at 02:00 Diagnostic Test (Pha) (Accu-Chek) 1 ea 02 XX ; Start 02/11/17 at 02:00 Miscellaneous Information 1 ea NOTE XX ; Start 02/11/17 at 02:00 Glucose (Glutose) 15 gm Q15M PRN PO DECREASED GLUCOSE; Start 02/11/17 at 02:00 Glucose (Glutose) 22.5 gm Q15M PRN PO DECREASED GLUCOSE; Start 02/11/17 at 02: 00 Dextrose (D50w Syringe) 25 ml Q15M PRN IV DECREASED GLUCOSE; Start 02/11/17 at 02:00 Dextrose (D50w Syringe) 50 ml Q15M PRN IV DECREASED GLUCOSE; Start 02/11/17 at 02:00 Glucagon (Glucagen) 1 mg Q15M PRN IM DECREASED GLUCOSE; Start 02/11/17 at 02: 00 Glucose (Glutose) 15 gm Q15M PRN BUCCAL DECREASED GLUCOSE; Start 02/11/17 at 02:00 Influenza Virus Vaccine (Fluzone) 0.5 ml ONCE ONCE IM* ; Start 02/12/17 at 09: 00; Stop 02/12/17 at 09:01 Amlodipine Besylate (Norvasc) 5 mg BID PO ; Start 02/11/17 at 21:00 Atorvastatin Calcium (Lipitor) 40 mg HS PO ; Start 02/11/17 at 21:00 Cinacalcet (Sensipar) 30 mg BID PO ; Start 02/11/17 at 21:00 Clopidogrel Bisulfate (plaVIX) 75 mg DAILY PO ; Start 02/12/17 at 09:00 Losartan Potassium (Cozaar) 25 mg DAILY PO ; Start 02/12/17 at 09:00 Metoprolol Succinate (Toprol Xl) 25 mg DAILY PO ; Start 02/12/17 at 09:00 Nifedipine (Procardia Xl) 60 mg DAILY PO ; Start 02/12/17 at 09:00 Zolpidem Tartrate 5 mg 5 mg QHS PRN PO INSOMNIA; Start 02/11/17 at 13:00 Vancomycin HCl (Vancocin) 250 ml @ 125 mls/hr ONCE IVPB ; Start 02/11/17 at 17 :00; Stop 02/11/17 at 18:59 MARKIE ORO DPM Feb 11, 2017 16:41
[2017-02-11] MEDS ORDERED: VANCOMYCIN 1 GM in NS 250 ML IVPB SCH (17:00)
--- NOTE | 2017-02-11 17:26 | HP ---
DATE OF ADMISSION: 02/10/2017 VASCULAR SURGERY HISTORY AND PHYSICAL Dear Doctors: Mr. Thibodeaux is a 61-year-old gentleman who is legally blind was evaluated by us back in November 2016. He presented at that time with left lower extremity gangrene involving his fifth toe and his heel and significant left diabetic foot infection. At that time, the patient underwent endovascular interven tion for left femoral popliteal angioplasty and stenting with atherectomy. Further, the patient was started on aspirin and Plavix. Unfortunately, the patient has not followed up with us postoperativ rula to evaluate his progress and his local wound care. He now presents with worsening heel gangrene and gangrene of his second, third, fourth and fifth toe being gangrene fully as it was before and h e does have tissue loss of the second, third and fourth toe now. At the moment, the patient denies shortness of breath, chest pain, nausea, vomiting, fever or chills. Patient has been tolerating his dialysis sessions via his left upper extremity fistula. REVIEW OF SYSTEMS: A 14-point review performed and negative except what is mentioned in the HPI. PAST MEDICAL HISTORY: Entails end-stage renal disease on dialysis Friday, Friday, Friday, duval ry artery disease, diabetes, bilateral lower extremity atherosclerosis with left lower extremity yosvany grene, legally blind, hypertension, anemia of chronic disease and left diabetic foot infections. PAST SURGICAL HISTORY: Appendectomy, left upper extremity AV fistula creation at the wrist and a ne w left lower extremity endovascular intervention. FAMILY HISTORY: Positive for hypertension, diabetes. SOCIAL HISTORY: Previous smoker. Denies current tobacco, alcohol or illicit drug use. PHYSICAL EXAMINATION: GENERAL: Alert and oriented x3, no apparent distress. HEENT: Legally blind normocephalic, atraumatic. Mucosa moist. Poor dentition. NECK: Supple. No carotid bruit. PULMONARY: Clear to auscultation bilaterally. No crackles. CARDIOVASCULAR: S1, S2 present. No murmurs. ABDOMEN: Soft, nontender, nondistended. Bowel sounds positive. EXTREMITIES: Right lower extremity palpable femoral pulse, nonpalpable pedal pulse. Motor, sensory intact. Cap refill 3 seconds. No ulcers. Left lower extremity palpable femoral pulse, nonpalpabl e pedal pulse. Motor, sensory intact. Capillary refill 4 seconds. There is dependent rubor of the forefoot with gangrene of the fifth toe that this dry. He also has some minor tissue loss of the s econd, 3rd and 4th toe. He does have a large heel gangrene that seems that developed over the past 3 months. ASSESSMENT AND PLAN: Bilateral lower extremity atherosclerosis with left lower extremity gangrene. It seems the patient has developed worsening of his left lower extremity gangrene despite endovascu lar intervention. We will plan to obtain noninvasive vascular studies to further delineate his post -intervention changes and may require a new angiogram and possible intervention. 1. I would recommend applying Betadine paint to his gangrene areas of his left foot. 2. Continue with our wound care per our podiatry colleagues. 3. End-stage renal disease: It seems the patient has not had any issues regarding his fistula. We will plan to obtain a new fistula ultrasound to evaluate his vascular surveillance from that aspect . 4. Optimize vascular status (BP meds, diet, nutrition, exercise, sugar control, antiplatelets). Discussed findings, plan and management with the patient and the family at the bedside and they unde rstand. Thank you for allowing us to participate in the care of your patient. Please call with any question s. Dictated By: AMOS SAUCEDO/ZACK Conf#: [id number] DID#: [id number]
[2017-02-11] MEDS: CALCIUM ACETATE 667 MG CAP PO SCH (18:04)
[2017-02-11] MEDS: SEVELAMER 800 MG TAB PO SCH (18:04)
--- NOTE | 2017-02-11 18:24 | RADRPT ---
PROCEDURE: US bilateral lower extremity arteries. CLINICAL INDICATION: Bilateral leg pain. Left foot gangrene. TECHNIQUE: Multiple longitudinal and transverse images of the bilateral lower extremity arteries w ere obtained with vuong scale, pulsed Doppler, and color Doppler imaging. COMPARISON: No prior studies are available for comparison. FINDINGS: Right SHIELD OPERATOR:124 cm/sec PSFA:131 cm/sec MSFA:60 cm/sec DSFA:50 cm/sec POP:98 cm/sec CHILLER OPERATOR:44 cm/sec DPA:78 cm/sec Left SHIELD OPERATOR:86 cm/sec PSFA:133 cm/sec MSFA:84 cm/sec DSFA:51 cm/sec POP:54 cm/sec CHILLER OPERATOR:19 cm/sec DPA:23 cm/sec The ankle-brachial indices were unobtainable due to calcified vessels. On the right side, there is normal triphasic or triphasic flow in the common femoral artery, superfi cial femoral artery, and popliteal artery. Abnormal monophasic flow is present in the right calf art eries. On the left side, there is normal triphasic flow in the common femoral artery. Abnormal biphasic peggy w is present in the left superficial femoral artery. Abnormal monophasic flow is present in the calf arteries. IMPRESSION: 1. Abnormal flow bilaterally as described above. There is significant stenosis or occlusion in the calf arteries. RPTAT: QQ .Danny Gibbs MD, Date Time Electronically viewed and signed by .Danny Gibbs MD, on 02/11/2017 18:24 .R/
[2017-02-11 20:00] VITALS: BP 169/75; RESP 20
--- NOTE | 2017-02-11 20:20 | RADRPT ---
PROCEDURE: US left upper extremity arterial system. CLINICAL INDICATION: Left upper extremity pain and swelling. Left upper extremity dialysis fistula . TECHNIQUE: Multiple longitudinal and transverse images of the left upper extremity dialysis fistul a was obtained with vuong scale pulsed Doppler, and color Doppler imaging. COMPARISON: None available FINDINGS: There is a dialysis fistula extending from the brachial artery to the cephalic vein. The peak systolic velocity, diameter, and flow volumes are as follows: Anastomosis: 410 cm/sec. 0.16 cm diameter. 162 ml/minute. Proximal: 315 cm/sec. 0.34 cm diameter. 556 ml/minute. Mid: 123 cm/sec. 1.1 cm diameter. 2218 ml/minute. Distal: 159 cm/sec. 0.8 cm diameter. 1074 ml/minute. Outflow: 424 cm/sec. 0.4 cm diameter. 1059 ml/minute. IMPRESSION: 1. Patent dialysis fistula with flow and diameter data as indicated above. RPTAT: QQ .Danny Gibbs MD, MD Date Time Electronically viewed and signed by .Danny Gibbs MD, on 02/11/2017 20:20 .R/
[2017-02-11] MEDS: ATORVASTATIN 40 MG TAB PO SCH (21:29)
[2017-02-11] MEDS: AMLODIPINE 5 MG TAB PO SCH (21:29)
[2017-02-11] MEDS: CINACALCET 30 MG TAB PO SCH (21:29)
[2017-02-11 22:00] VITALS: BP 160/72
[2017-02-12] VITALS (13 sets, daily range): BP systolic 114–176; BP diastolic 58–80; PULSE 66–73; RESP 18–20
[2017-02-12] MEDS: morphine 2 MG INJ IV PRN (01:44)
--- NOTE | 2017-02-12 01:44 | CONS ---
DATE OF ADMISSION: 02/10/2017 DATE OF CONSULTATION: 02/11/2017 INFECTIOUS DISEASE CONSULTATION REASON FOR CONSULTATION: Antibiotic management. HISTORY OF PRESENT ILLNESS: Nick Thibodeaux is a 61-year-old male who comes in from Dr. Ling's office with left foot gangrene. His problems include: 1. End-stage renal disease on hemodialysis. 2. Hypertension. 3. Legal blindness. 4. Hyperlipidemia. 5. History of left fifth toe gangrene with cellulitis. At that time, the patient underwent vascula r intervention by Dr. Zaragoza, was discharged on Plavix and IV antibiotics. He has a history of s evere peripheral vascular disease. He was started on broad spectrum antibiotics and management for left foot gangrene. PAST MEDICAL HISTORY: Positive for coronary artery disease, as well as diabetes, hypertension, ketty pheral vascular disease, severe hyperlipidemia and end-stage renal disease. PAST SURGICAL HISTORY: Status post appendectomy, status post left AV fistula. FAMILY HISTORY: Noncontributory. SOCIAL HISTORY: He is a former smoker. He does not drink or abuse drugs. ALLERGIES: FLUORESCEIN DYE. MEDICATIONS: Per chart. REVIEW OF SYSTEMS: As per HPI. PHYSICAL EXAMINATION: GENERAL: The patient is a well-developed, well-nourished male, who is awake, responsive, i n no acute distress. VITAL SIGNS: Stable. He is afebrile. SKIN: Without generalized rash. HEENT: Within normal limits. NECK: Supple. LYMPH NODES: None palpable. CHEST: Decreased breath sounds at the bases. HEART: Without murmur or gallop. ABDOMEN: Soft, nontender, without organosplenomegaly or masses. EXTREMITIES: He has left upper extremity AV fistula with a palpable thrill, audible bruit, left low er extremity gangrenous heel and gangrenous tip of the fifth and third left toes, also gangrenous wo und on the plantar surface of the left foot. RECTAL AND GENITAL: Deferred. NEUROLOGIC: No focal neurological abnormalities. IMPRESSION AND PLAN: The patient will see Dr. Zaragoza in vascular consultation. At this point in time, we will place him on significant antibiotic therapy. He is a hemodialysis patient, so he deanna uld be on vancomycin, pharmacy to dose. He is on Zosyn at this point. We will put him on vancomyci n. I will dictate my findings to Dr. Thrasher. Dictated By: VANDA GARNER MD, JD/ZACK Conf#: [id number] DID#: [id number] CC: POLY THRASHER MD;*EndCC*
[2017-02-12] MEDS: ACCU-CHEK XX SCH ×2 (02:00)
[2017-02-12 06:21] LABS: ABNORMAL IP MESSAGE 1; BASOPHILS % 0.5 % (0.0-2.0); EOSINOPHILS # 0.1 10^3/ul (0.0-0.5); EOSINOPHILS % 1.7 % (0.0-7.0); HEMATOCRIT 29.8 % (42.0-52.0); HEMOGLOBIN 9.1 g/dl (14.0-18.0); LYMPHOCYTES # 0.6 10^3/ul (0.8-2.9); LYMPHOCYTES % 8.7 % (15.0-51.0); MEAN CORPUSCULAR HEMOGLOBIN 26.9 pg (29.0-33.0); MEAN CORPUSCULAR HGB CONC 30.5 g/dl (32.0-37.0); MEAN CORPUSCULAR VOLUME 88.2 fl (82.0-101.0); MEAN PLATELET VOLUME 9.7 fl (7.4-10.4); MONOCYTE # 0.8 10^3/ul (0.3-0.9); NEUTROPHIL # 4.8 10^3/ul (1.6-7.5); NEUTROPHILS % 75.6 % (39.0-77.0); PLATELET COUNT 276 10^3/UL (140-415); POSITIVE DIFF @See below; RED BLOOD COUNT 3.38 10^6/ul (4.70-6.10); RED CELL DISTRIBUTION WIDTH 18.5 % (11.5-14.5); WHITE BLOOD COUNT 6.3 10^3/ul (4.8-10.8)
[2017-02-12 07:05] LABS: CALCIUM 8.2 mg/dl (8.4-10.2); CREATININE 10.46 mg/dl (0.61-1.24)
[2017-02-12 07:15] LABS: POTASSIUM 6.4 mmol/L (3.5-5.1)
[2017-02-12] MEDS: INSULIN ASPART [NOVOLOG] 3 ML PEN SC SCH ×4 (08:15→20:56)
[2017-02-12] MEDS: CINACALCET 30 MG TAB PO SCH ×2 (08:49→20:56)
[2017-02-12] MEDS: CALCIUM ACETATE 667 MG CAP PO SCH ×3 (08:49→17:27)
[2017-02-12] MEDS: SEVELAMER 800 MG TAB PO SCH ×3 (08:49→17:27)
[2017-02-12] MEDS: CLOPIDOGREL 75 MG TAB PO SCH (08:49)
[2017-02-12] MEDS ORDERED: INFLUENZA VIRUS VACCINE 0.5 ML (DISPENSING) IM* ONE (09:00)
[2017-02-12] MEDS: HYDROCODONE/APAP (5/325) TAB PO PRN ×3 (09:05→21:14)
[2017-02-12] MEDS: NIFEdipine (XL) 60 MG TAB PO SCH (12:23)
[2017-02-12] MEDS: AMLODIPINE 5 MG TAB PO SCH ×2 (12:24→20:56)
[2017-02-12] MEDS: LOSARTAN 25 MG TAB PO SCH (12:24)
[2017-02-12] MEDS: METOPROLOL (XL) 25 MG TAB PO SCH (12:24)
--- NOTE | 2017-02-12 13:36 | PN ---
Date/Time of Note Date/Time of Note DATE: 02/12/17 TIME: 13:32 Assessment/Plan VTE Prophylaxis VTE Prophylaxis Intervention: SCD's Lines/Catheters IV [facility] Urinary Cath still in place: No (HD patient) Assessment/Plan Chief Complaint/Hosp Course Patient is undergoing hemodialysis, pending noninvasive vascular studies, pain is well controlled. Problems: Assessment/Plan - Hyperkalemia, patient is in is undergoing hemodialysis today, check BMP tomorrow. - Left foot multiple gangrenous wounds. Dr. Zaragoza is following in vascular surgery consultation, Dr. Jackman is following in podiatry consultation. Dr. Tobias is following in ID consultation. Continue antibiotics per ID , continue current wound care. - End-stage renal disease, hemodialysis dependent. Dr. Newby is following in nephrology consultation. Continue on hemodialysis. - Hypertension. Continue home antihypertensive medication. Monitor blood pressure. - Legally blind status. - Anemia of chronic disease. - Severe peripheral vascular disease. Further recommendations based on clinical course. Plan of care discussed with Dr. French. Exam/Review of Systems Vital Signs Vitals Vital Signs Date Time Temp Pulse Resp B/P Pulse Ox O2 Delivery O2 Flow Rate FiO2 02/12/17 10:10 73 02/12/17 07:44 97.4 18 143/67 95 02/11/17 00:48 Room Air Intake and Output 02/11/17 02/11/17 02/12/17 15:00 23:00 07:00 Intake Total 1210 ml Output Total 0 ml Balance 1210 ml Results Result Diagram: 02/12/17 0550 02/12/17 0550 Results 24 hrs Laboratory Tests Test 02/11/17 18:04 02/11/17 21:30 02/12/17 05:50 02/12/17 07:49 Bedside Glucose 87 121 93 White Blood Count 6.3 Red Blood Count 3.38 L Hemoglobin 9.1 L Hematocrit 29.8 L Mean Corpuscular Volume 88.2 Mean Corpuscular Hemoglobin 26.9 L Mean Corpuscular Hemoglobin Concent 30.5 L Red Cell Distribution Width 18.5 H Platelet Count 276 # Mean Platelet Volume 9.7 Neutrophils % 75.6 Lymphocytes % 8.7 L Monocytes % 13.0 H Eosinophils % 1.7 Basophils % 0.5 Nucleated Red Blood Cells % 0.0 Neutrophils # 4.8 Lymphocytes # 0.6 L Monocytes # 0.8 Eosinophils # 0.1 Basophils # 0.0 Nucleated Red Blood Cells # 0.0 Sodium Level 139 Potassium Level 6.4 *H Chloride Level 99 Carbon Dioxide Level 28 Anion Gap 18 H Blood Urea Nitrogen 53 H Creatinine 10.46 #H Glucose Level 74 Calcium Level 8.2 L Test 02/12/17 11:33 Bedside Glucose 127 Medications Medications Current Medications Morphine Sulfate (morphine) 2 mg Q4H PRN IV pain Last administered on 01:44; Admin Dose 2 MG; Start 02/11/17 at 01:30 Ondansetron HCl (Zofran Inj) 4 mg Q6H PRN IV NAUSEA AND/OR VOMITING; Start 02/18 at 01:30 Diagnostic Test (Pha) (Accu-Chek) 1 ea 02 XX ; Start 02/11/17 at 02:00 Diagnostic Test (Pha) (Accu-Chek) 1 ea 02 XX ; Start 02/11/17 at 02:00 Miscellaneous Information 1 ea NOTE XX ; Start 02/11/17 at 02:00 Glucose (Glutose) 15 gm Q15M PRN PO DECREASED GLUCOSE; Start 02/11/17 at 02:00 Glucose (Glutose) 22.5 gm Q15M PRN PO DECREASED GLUCOSE; Start 02/11/17 at 02: 00 Dextrose (D50w Syringe) 25 ml Q15M PRN IV DECREASED GLUCOSE; Start 02/11/17 at 02:00 Dextrose (D50w Syringe) 50 ml Q15M PRN IV DECREASED GLUCOSE; Start 02/11/17 at 02:00 Glucagon (Glucagen) 1 mg Q15M PRN IM DECREASED GLUCOSE; Start 02/11/17 at 02: 00 Glucose (Glutose) 15 gm Q15M PRN BUCCAL DECREASED GLUCOSE; Start 02/11/17 at 02:00 Amlodipine Besylate (Norvasc) 5 mg BID PO Last administered on 02/12/17 12:24 ; Admin Dose 5 MG; Start 02/11/17 at 21:00 Atorvastatin Calcium (Lipitor) 40 mg HS PO Last administered on 02/11/17 21: 29; Admin Dose 40 MG; Start 02/11/17 at 21:00 Cinacalcet (Sensipar) 30 mg BID PO Last administered on 02/12/17 08:49; Admin Dose 30 MG; Start 02/11/17 at 21:00 Clopidogrel Bisulfate (plaVIX) 75 mg DAILY PO Last administered on 02/12/17 08:49; Admin Dose 75 MG; Start 02/12/17 at 09:00 Losartan Potassium (Cozaar) 25 mg DAILY PO Last administered on 02/12/17 12: 24; Admin Dose 25 MG; Start 02/12/17 at 09:00 Metoprolol Succinate (Toprol Xl) 25 mg DAILY PO Last administered on 12:24; Admin Dose 25 MG; Start 02/12/17 at 09:00 Nifedipine (Procardia Xl) 60 mg DAILY PO Last administered on 02/12/17 12:23 ; Admin Dose 60 MG; Start 02/12/17 at 09:00 Zolpidem Tartrate (Ambien) 5 mg QHS PRN PO INSOMNIA; Start 02/11/17 at 13:00 Acetaminophen/ Hydrocodone Bitart (Wolf (5/325)) 1 tab Q4H PRN PO PAIN Last administered on 02/12/17 09:05; Admin Dose 1 TAB; Start 02/11/17 at 17:00 Clonidine (Catapres) 0.1 mg Q6H PRN PO ELEVATED SYSTOLIC BP Last administered on 02/12/17 01:44; Admin Dose 0.1 MG; Start 02/12/17 at 01:30 Miscellaneous Information (*Rx Drug Level Order Reminder*) VANCO RANDOM LEVEL... ONCE ONCE XX ; Start 02/13/17 at 05:00; Stop 02/13/17 at 05:01 VIV KING Feb 12, 2017 13:36
--- NOTE | 2017-02-12 15:14 | CONS ---
Date/Time of Note Date/Time of Note DATE: 02/12/17 TIME: 15:12 Assessment/Plan Assessment/Plan Additional Assessment/Plan 60 yo Male with 1) Left foot/toe Gangrene 2) ESRD on HD MWF 3) Hyperkalemia 4) HTN, Chronic 5) DM with Renal Complication ESRD 6) Legally blind status 7) Mineral Bone disease, CKD 8) Anemia, Chronic, ESRD S/p HD, No complication Repeat chemistry in am. HD MWF SChedule STACIE with HD 3x week F/u Phos, Renal ADA diet, Cont phos binder BP elevated, restarted on outpt HTN Rx Dose IV abx to ESRD. Consultation Date/Type/Reason Admit Date/Time Feb 10, 2017 at 23:00 Initial Consult Date 02/11/17 Type of Consultation: Renal Referring Provider: POLY THRASHER MD 24 HR Interval Summary Free Text/Dictation S/p HD this am. Exam/Review of Systems Vital Signs Vitals Vital Signs Date Time Temp Pulse Resp B/P Pulse Ox O2 Delivery O2 Flow Rate FiO2 02/12/17 14:07 97.9 70 18 176/77 96 02/11/17 00:48 Room Air Intake and Output 02/11/17 02/11/17 02/12/17 14:59 22:59 06:59 Intake Total 1210 ml Output Total 0 ml Balance 1210 ml Exam Constitutional: No distress ENMT: mucosa pink and moist Neck: No jvd Respiratory: clear to auscultation, No crackles/rales Cardiovascular: regular rate and rhythm, No edema Gastrointestinal: non-tender, soft Extremities: No edema Neurological: nl mental status, No lethargic Skin: No diaphoresis Results Result Diagram: 02/12/17 0550 02/12/17 0550 Results 24 hrs Laboratory Tests Test 02/11/17 18:04 02/11/17 21:30 02/12/17 05:50 02/12/17 07:49 Bedside Glucose 87 121 93 White Blood Count 6.3 Red Blood Count 3.38 L Hemoglobin 9.1 L Hematocrit 29.8 L Mean Corpuscular Volume 88.2 Mean Corpuscular Hemoglobin 26.9 L Mean Corpuscular Hemoglobin Concent 30.5 L Red Cell Distribution Width 18.5 H Platelet Count 276 # Mean Platelet Volume 9.7 Neutrophils % 75.6 Lymphocytes % 8.7 L Monocytes % 13.0 H Eosinophils % 1.7 Basophils % 0.5 Nucleated Red Blood Cells % 0.0 Neutrophils # 4.8 Lymphocytes # 0.6 L Monocytes # 0.8 Eosinophils # 0.1 Basophils # 0.0 Nucleated Red Blood Cells # 0.0 Sodium Level 139 Potassium Level 6.4 *H Chloride Level 99 Carbon Dioxide Level 28 Anion Gap 18 H Blood Urea Nitrogen 53 H Creatinine 10.46 #H Glucose Level 74 Calcium Level 8.2 L Test 02/12/17 11:33 Bedside Glucose 127 Medications Medications Current Medications Morphine Sulfate (morphine) 2 mg Q4H PRN IV pain Last administered on 01:44; Admin Dose 2 MG; Start 02/11/17 at 01:30 Ondansetron HCl (Zofran Inj) 4 mg Q6H PRN IV NAUSEA AND/OR VOMITING; Start 02/18 at 01:30 Diagnostic Test (Pha) (Accu-Chek) 1 ea 02 XX ; Start 02/11/17 at 02:00 Miscellaneous Information 1 ea NOTE XX ; Start 02/11/17 at 02:00 Glucose (Glutose) 15 gm Q15M PRN PO DECREASED GLUCOSE; Start 02/11/17 at 02:00 Glucose (Glutose) 22.5 gm Q15M PRN PO DECREASED GLUCOSE; Start 02/11/17 at 02: 00 Dextrose (D50w Syringe) 25 ml Q15M PRN IV DECREASED GLUCOSE; Start 02/11/17 at 02:00 Dextrose (D50w Syringe) 50 ml Q15M PRN IV DECREASED GLUCOSE; Start 02/11/17 at 02:00 Glucagon (Glucagen) 1 mg Q15M PRN IM DECREASED GLUCOSE; Start 02/11/17 at 02: 00 Glucose (Glutose) 15 gm Q15M PRN BUCCAL DECREASED GLUCOSE; Start 02/11/17 at 02:00 Amlodipine Besylate (Norvasc) 5 mg BID PO Last administered on 02/12/17 12:24 ; Admin Dose 5 MG; Start 02/11/17 at 21:00 Atorvastatin Calcium (Lipitor) 40 mg HS PO Last administered on 02/11/17 21: 29; Admin Dose 40 MG; Start 02/11/17 at 21:00 Cinacalcet (Sensipar) 30 mg BID PO Last administered on 02/12/17 08:49; Admin Dose 30 MG; Start 02/11/17 at 21:00 Clopidogrel Bisulfate (plaVIX) 75 mg DAILY PO Last administered on 02/12/17 08:49; Admin Dose 75 MG; Start 02/12/17 at 09:00 Losartan Potassium (Cozaar) 25 mg DAILY PO Last administered on 02/12/17 12: 24; Admin Dose 25 MG; Start 02/12/17 at 09:00 Metoprolol Succinate (Toprol Xl) 25 mg DAILY PO Last administered on 12:24; Admin Dose 25 MG; Start 02/12/17 at 09:00 Nifedipine (Procardia Xl) 60 mg DAILY PO Last administered on 02/12/17 12:23 ; Admin Dose 60 MG; Start 02/12/17 at 09:00 Zolpidem Tartrate (Ambien) 5 mg QHS PRN PO INSOMNIA; Start 02/11/17 at 13:00 Acetaminophen/ Hydrocodone Bitart ([place] (5/325)) 1 tab Q4H PRN PO PAIN Last administered on 02/12/17 09:05; Admin Dose 1 TAB; Start 02/11/17 at 17:00 Clonidine (Catapres) 0.1 mg Q6H PRN PO ELEVATED SYSTOLIC BP Last administered on 02/12/17 14:10; Admin Dose 0.1 MG; Start 02/12/17 at 01:30 Miscellaneous Information VANCO RANDOM LEVEL... ONCE ONCE XX ; Start 02/13/17 at 05:00; Stop 02/13/17 at 05:01 Cefepime HCl (Maxipime 1gm/50 ml (Pmx)) 50 ml @ 100 mls/hr DAILY IVPB ; Start 02/12/17 at 14:00 PIPER FELIX MD Feb 12, 2017 15:14
--- NOTE | 2017-02-12 15:36 | PN ---
DATE: 02/12/2017 SUBJECTIVE: No events overnight. The patient is in hemodialysis, sleeping, looks comfortable, no f lang. WBC 6.3. No shift, no bands. INDWELLINGS: Left upper extremity AV fistula. MICROBIOLOGY: Blood cultures had been negative. ANTIMICROBIALS: The patient is on vancomycin status post Zosyn. PHYSICAL EXAMINATION: GENERAL: Well-developed, chronically ill-appearing, elderly man in no distress. HEENT: Head atraumatic, normocephalic. Sclerae anicteric. Buccal mucosa dry. NECK: Supple. CHEST: Rise symmetrical. Breath sounds diminished to bases. HEART: S1, S2. ABDOMEN: Soft. Bowel tones present. EXTREMITIES: Left lower extremity gangrene. ASSESSMENT: 1. Left lower extremity gangrene. 2. Peripheral vascular disease. 3. End-stage renal disease, hemodialysis dependent. 4. Hypertension. 5. Legally blind. PLAN: The patient remains stable. We will continue him on IV vancomycin and add cefepime to the re gimen. Follow podiatry and vascular recommendations. Dictated By: SHITAL MCKEON LOGIST[employer] PLANNING ENGINEER for VANDA VALVERDE/ZACK Conf#: [id number] DID#: [id number]
[2017-02-12] MEDS: CEFEPIME 1GM/50 ML (PMX) 50 ML IVPB SCH (15:38)
[2017-02-12] MEDS: EPOETIN 4000 UNITS/1 ML INJ (ESRD) SC SCH (17:28)
[2017-02-12] MEDS: ATORVASTATIN 40 MG TAB PO SCH (20:56)
[2017-02-13] MEDS: ACCU-CHEK XX SCH (01:35)
[2017-02-13] MEDS: ONDANSETRON 4 MG INJ IV PRN ×2 (01:40→16:59)
[2017-02-13 02:00] VITALS: BP 120/60; RESP 20
[2017-02-13] MEDS ORDERED: MAGNESIUM HYDROXIDE 30ML CUP PO ONE (03:30)
[2017-02-13] MEDS ORDERED: METOCLOPRAMIDE 10 MG INJ IV PRN (03:30)
[2017-02-13 05:45] LABS: ABNORMAL IP MESSAGE 1; BASOPHILS % 0.4 % (0.0-2.0); EOSINOPHILS # 0.1 10^3/ul (0.0-0.5); EOSINOPHILS % 1.8 % (0.0-7.0); HEMATOCRIT 28.6 % (42.0-52.0); HEMOGLOBIN 8.9 g/dl (14.0-18.0); LYMPHOCYTES # 0.4 10^3/ul (0.8-2.9); LYMPHOCYTES % 5.2 % (15.0-51.0); MEAN CORPUSCULAR HEMOGLOBIN 27.3 pg (29.0-33.0); MEAN CORPUSCULAR HGB CONC 31.1 g/dl (32.0-37.0); MEAN CORPUSCULAR VOLUME 87.7 fl (82.0-101.0); MEAN PLATELET VOLUME 9.6 fl (7.4-10.4); MONOCYTE # 0.8 10^3/ul (0.3-0.9); MONOCYTES % 11.5 % (0.0-11.0); NEUTROPHIL # 5.8 10^3/ul (1.6-7.5); NEUTROPHILS % 80.8 % (39.0-77.0); PLATELET COUNT 264 10^3/UL (140-415); POSITIVE DIFF @See below; RED BLOOD COUNT 3.26 10^6/ul (4.70-6.10); RED CELL DISTRIBUTION WIDTH 18.1 % (11.5-14.5); WHITE BLOOD COUNT 7.2 10^3/ul (4.8-10.8)
[2017-02-13 05:59] LABS: CALCIUM 7.8 mg/dl (8.4-10.2); CREATININE 8.31 mg/dl (0.61-1.24); POTASSIUM 5.9 mmol/L (3.5-5.1)
[2017-02-13] MEDS: INSULIN ASPART [NOVOLOG] 3 ML PEN SC SCH ×4 (08:12→20:41)
[2017-02-13] MEDS: CINACALCET 30 MG TAB PO SCH ×2 (08:13→20:35)
[2017-02-13] MEDS: SEVELAMER 800 MG TAB PO SCH ×3 (08:13→17:00)
[2017-02-13] MEDS: NIFEdipine (XL) 60 MG TAB PO SCH (08:13)
[2017-02-13] MEDS: SENNA TAB PO SCH ×2 (08:13→20:35)
[2017-02-13] MEDS: CLOPIDOGREL 75 MG TAB PO SCH (08:13)
[2017-02-13] MEDS: CALCIUM ACETATE 667 MG CAP PO SCH ×3 (08:13→17:00)
[2017-02-13] MEDS: CEFEPIME 1GM/50 ML (PMX) 50 ML IVPB SCH (08:14)
[2017-02-13] MEDS: LOSARTAN 25 MG TAB PO SCH (08:14)
[2017-02-13] MEDS: AMLODIPINE 5 MG TAB PO SCH ×2 (08:14→20:36)
[2017-02-13] MEDS: METOPROLOL (XL) 25 MG TAB PO SCH (08:15)
[2017-02-13 08:38] VITALS: BP 119/56; RESP 20
[2017-02-13] MEDS ORDERED: VANCOMYCIN 1 GM in NS 250 ML IVPB ONE (09:00)
[2017-02-13] MEDS ORDERED: APIXABAN 5 MG TABLET PO ONE (09:00)
--- NOTE | 2017-02-13 13:16 | PN ---
Date/Time of Note Date/Time of Note DATE: 02/13/17 TIME: 13:08 Assessment/Plan Lines/Catheters IV Catheter Type (from [facility]): Saline Lock Nathan in Place (from [facility]): No (HD patient) Assessment/Plan Chief Complaint/Hosp Course -Bilateral lower extremity atherosclerosis with left lower extremity gangrene. It seems the patient has developed worsening of his left lower extremity gangrene despite endovascular intervention. Upon his noninvasive vascular studies he does have infrainguinal disease that may require a new angiogram and possible intervention. this can be performed as an outpt. will discuss with our podiatry colleagues -Continue with our wound care per our podiatry colleagues. -End-stage renal disease: It seems the patient has not had any issues regarding his fistula. His fistula ultrasound demonstrated areas of high velocities will plan for eventual fistulogram as outpt -Optimize vascular status (BP meds, diet, nutrition, exercise, sugar control, antiplatelets). -Discussed findings, plan and management with the patient and the family at the bedside and they understand. -Thank you for allowing us to participate in the care of your patient. Please call with any questions. Problems: Subjective 24 Hr Interval Summary no new vascular events overnight Exam/Review of Systems Vital Signs Vitals Vital Signs Date Time Temp Pulse Resp B/P Pulse Ox O2 Delivery O2 Flow Rate FiO2 02/13/17 08:38 98.0 70 20 119/56 95 02/11/17 00:48 Room Air Intake and Output 02/12/17 02/12/17 02/13/17 15:00 23:00 07:00 Intake Total 900 ml 560 ml Output Total 2400 ml Balance -1500 ml 560 ml Exam Free Text/Dictation GENERAL: Alert and oriented x3, PULMONARY: Clear to auscultation bilaterally CARDIOVASCULAR: S1, S2 present. ABDOMEN: Soft, nontender, nondistended. Bowel sounds positive. EXTREMITIES: Right lower extremity palpable femoral pulse, nonpalpable pedal pulse. Motor, sensory intact. Cap refill 3 seconds. No ulcers. Left lower extremity palpable femoral pulse, nonpalpable pedal pulse. Motor, sensory intact. Capillary refill 4 seconds. Dependent rubor of the forefoot with gangrene of the fifth toe that is dry. Some minor tissue loss of the second , 3rd and 4th toe. Large heel gangrene that seems to have developed over the past 3 months. Results Result Diagram: 02/13/17 0507 02/13/17 0507 AMOS KEYS MD Feb 13, 2017 13:16
[2017-02-13] MEDS ORDERED: DOCUSATE SODIUM 100 MG CAP PO PRN (13:30)
[2017-02-13] MEDS ORDERED: BISACODYL (EC) 5 MG TAB PO ONE (13:30)
--- NOTE | 2017-02-13 13:30 | CONS ---
Date/Time of Note Date/Time of Note DATE: 02/13/17 TIME: 13:28 Consult Date/Type/Reason Admit Date/Time Feb 10, 2017 at 23:00 Initial Consult Date 02/11/17 Type of Consultation: ID Ordering Provider: POLY THRASHER MD Objective Vital Signs Date Time Temp Pulse Resp B/P Pulse Ox O2 Delivery O2 Flow Rate FiO2 02/13/17 08:38 98.0 70 20 119/56 95 02/11/17 00:48 Room Air Intake and Output 02/12/17 02/12/17 02/13/17 15:00 23:00 07:00 Intake Total 900 ml 560 ml Output Total 2400 ml Balance -1500 ml 560 ml Results/Medications Result Diagram: 02/13/17 0507 02/13/17 0507 Results 24 hrs Laboratory Tests Test 02/12/17 17:18 02/12/17 20:55 02/13/17 01:35 02/13/17 05:07 Bedside Glucose 97 109 121 White Blood Count 7.2 Red Blood Count 3.26 L Hemoglobin 8.9 L Hematocrit 28.6 L Mean Corpuscular Volume 87.7 Mean Corpuscular Hemoglobin 27.3 L Mean Corpuscular Hemoglobin Concent 31.1 L Red Cell Distribution Width 18.1 H Platelet Count 264 Mean Platelet Volume 9.6 Neutrophils % 80.8 H Lymphocytes % 5.2 L Monocytes % 11.5 H Eosinophils % 1.8 Basophils % 0.4 Nucleated Red Blood Cells % 0.0 Neutrophils # 5.8 Lymphocytes # 0.4 L Monocytes # 0.8 Eosinophils # 0.1 Basophils # 0.0 Nucleated Red Blood Cells # 0.0 Sodium Level 137 Potassium Level 5.9 H Chloride Level 97 Carbon Dioxide Level 31 Anion Gap 15 Blood Urea Nitrogen 40 #H Creatinine 8.31 #H Glucose Level 104 Calcium Level 7.8 L Phosphorus Level 6.1 H Random Vancomycin Level 10.6 Test 02/13/17 08:11 02/13/17 11:54 Bedside Glucose 90 129 Medications Current Medications Morphine Sulfate (morphine) 2 mg Q4H PRN IV pain Last administered on t 01:44; Admin Dose 2 MG; Start 02/11/17 at 01:30 Ondansetron HCl (Zofran Inj) 4 mg Q6H PRN IV NAUSEA AND/OR VOMITING Last administered on 02/13/17 01:40; Admin Dose 4 MG; Start 02/11/17 at 01:30 Diagnostic Test (Pha) (Accu-Chek) 1 ea 02 XX Last administered on 02/13/17 01 :35; Admin Dose 1 EA; Start 02/11/17 at 02:00 Miscellaneous Information 1 ea NOTE XX ; Start 02/11/17 at 02:00 Glucose (Glutose) 15 gm Q15M PRN PO DECREASED GLUCOSE; Start 02/11/17 at 02:00 Glucose (Glutose) 22.5 gm Q15M PRN PO DECREASED GLUCOSE; Start 02/11/17 at 02: 00 Dextrose (D50w Syringe) 25 ml Q15M PRN IV DECREASED GLUCOSE; Start 02/11/17 at 02:00 Dextrose (D50w Syringe) 50 ml Q15M PRN IV DECREASED GLUCOSE; Start 02/11/17 at 02:00 Glucagon (Glucagen) 1 mg Q15M PRN IM DECREASED GLUCOSE; Start 02/11/17 at 02: 00 Glucose (Glutose) 15 gm Q15M PRN BUCCAL DECREASED GLUCOSE; Start 02/11/17 at 02:00 Amlodipine Besylate (Norvasc) 5 mg BID PO Last administered on 02/13/17 08:14 ; Admin Dose 5 MG; Start 02/11/17 at 21:00 Atorvastatin Calcium (Lipitor) 40 mg HS PO Last administered on 02/12/17 20: 56; Admin Dose 40 MG; Start 02/11/17 at 21:00 Cinacalcet (Sensipar) 30 mg BID PO Last administered on 02/13/17 08:13; Admin Dose 30 MG; Start 02/11/17 at 21:00 Clopidogrel Bisulfate (plaVIX) 75 mg DAILY PO Last administered on 02/13/17 08:13; Admin Dose 75 MG; Start 02/12/17 at 09:00 Losartan Potassium (Cozaar) 25 mg DAILY PO Last administered on 02/13/17 08: 14; Admin Dose 25 MG; Start 02/12/17 at 09:00 Metoprolol Succinate (Toprol Xl) 25 mg DAILY PO Last administered on 08:15; Admin Dose 25 MG; Start 02/12/17 at 09:00 Nifedipine (Procardia Xl) 60 mg DAILY PO Last administered on 02/13/17 08:13 ; Admin Dose 60 MG; Start 02/12/17 at 09:00 Zolpidem Tartrate (Ambien) 5 mg QHS PRN PO INSOMNIA; Start 02/11/17 at 13:00 Acetaminophen/ Hydrocodone Bitart ([place] (5/325)) 1 tab Q4H PRN PO PAIN Last administered on 02/12/17 21:14; Admin Dose 1 TAB; Start 02/11/17 at 17:00 Clonidine 0.1 mg 0.1 mg Q6H PRN PO ELEVATED SYSTOLIC BP Last administered on 14:10; Admin Dose 0.1 MG; Start 02/12/17 at 01:30 Cefepime HCl (Maxipime 1gm/50 ml (Pmx)) 50 ml @ 100 mls/hr DAILY IVPB Last administered on 02/13/17 08:14; Admin Dose 100 MLS/HR; Start 02/12/17 at 14: 00 Epoetin Jorge Luis (Epogen (Esrd)) 4,000 units MoWeFr@17 SC Last administered on 17:28; Admin Dose 4,000 UNITS; Start 02/12/17 at 17:00 Senna (Senokot) 2 tab BID PO Last administered on 02/13/17 08:13; Admin Dose 2 TAB; Start 02/13/17 at 09:00 Metoclopramide HCl (Reglan) 5 mg Q6H PRN IV N/V Last administered on 03:35; Admin Dose 5 MG; Start 02/13/17 at 03:30 Assessment/Plan Chief Complaint/Hosp Course SUBJECTIVE: No events overnight. The patient is awake, looks comfortable, no fevers. INDWELLINGS: Left upper extremity AV fistula. MICROBIOLOGY: Blood cultures had been negative. ANTIMICROBIALS: The patient is on vancomycin and Cefepime PHYSICAL EXAMINATION: GENERAL: Well-developed, chronically ill-appearing, elderly man in no distress. HEENT: Head atraumatic, normocephalic. Sclerae anicteric. Buccal mucosa dry. NECK: Supple. CHEST: Rise symmetrical. Breath sounds diminished to bases. HEART: S1, S2. ABDOMEN: Soft. Bowel tones present. EXTREMITIES: Left lower extremity gangrene. ASSESSMENT: 1. Left lower extremity gangrene. 2. Peripheral vascular disease. 3. End-stage renal disease, hemodialysis dependent. 4. Hypertension. 5. Constipation PLAN: The patient remains stable. Continue abx, add stool softeners and prn laxatives. Follow podiatry and vascular recommendations. HD per renal Problems: SHITAL MCKEON NP Feb 13, 2017 13:30
[2017-02-13] MEDS: HYDROCODONE/APAP (5/325) TAB PO PRN (15:12)
[2017-02-13 16:08] VITALS: BP 108/57; RESP 18
[2017-02-13] MEDS ORDERED: NA POLYST SULFON 15 GM/60 ML BTL PO ONE (17:00)
--- NOTE | 2017-02-13 17:16 | DS ---
Date/Time of Note Date/Time of Note DATE: 02/13/17 TIME: 17:16 Discharge Summary Admission/Discharge Info Admit Date/Time Feb 10, 2017 at 23:00 Discharge Date/Time Hospital Course SUBJECTIVE: No events overnight. The patient is awake, looks comfortable, no fevers. INDWELLINGS: Left upper extremity AV fistula. MICROBIOLOGY: Blood cultures had been negative. ANTIMICROBIALS: The patient is on vancomycin and Cefepime PHYSICAL EXAMINATION: GENERAL: Well-developed, chronically ill-appearing, elderly man in no distress. HEENT: Head atraumatic, normocephalic. Sclerae anicteric. Buccal mucosa dry. NECK: Supple. CHEST: Rise symmetrical. Breath sounds diminished to bases. HEART: S1, S2. ABDOMEN: Soft. Bowel tones present. EXTREMITIES: Left lower extremity gangrene. ASSESSMENT: 1. Left lower extremity gangrene. 2. Peripheral vascular disease. 3. End-stage renal disease, hemodialysis dependent. 4. Hypertension. 5. Constipation PLAN: The patient remains stable. Continue abx, add stool softeners and prn laxatives. Follow podiatry and vascular recommendations. HD per renal Home Meds Active Scripts Metoprolol Tartrate* (Lopressor*) 50 Mg Tab, 50 MG PO BID for 30 Days, TAB Prov:VIV KING 11/20/16 Atorvastatin* (Atorvastatin*) 40 Mg Tablet, 40 MG PO HS for 30 Days, TAB Prov:VIV KING 11/20/16 Clopidogrel Bisulfate (Clopidogrel) 75 Mg Tablet, 75 MG PO DAILY for 30 Days, TAB 2 Refills Prov:VIV KING 11/20/16 Sevelamer Hcl* (Renagel*) 800 Mg Tab, 800 MG PO WITH MEALS, #90 Prov:VIV KING 01/20/15 Reported Medications Metoprolol Succinate* (Toprol XL*) 25 Mg Tab.sr.24h, 25 MG PO DAILY, #30 TAB 11/12/16 Losartan Potassium* (Losartan Potassium*) 25 Mg Tablet, 25 MG PO DAILY, TAB 11/12/16 Amlodipine Besylate* (Norvasc*) 5 Mg Tablet, 5 MG PO BID, TAB 11/12/16 Nifedipine* (Afeditab CR*) 60 Mg Tablet.er, 60 MG PO DAILY, #30 TAB.SA 06/07/16 Zolpidem Tartrate* (Zolpidem Tartrate*) 5 Mg Tablet, 5 MG PO QHS Y for INSOMNIA , #30 TAB 06/07/16 Calcium Acetate* (Calcium Acetate*) 667 Mg Capsule, 667 MG PO WITH MEALS, #30 CAP 03/12/16 Cinacalcet* (Sensipar*) 30 Mg Tab, 30 MG PO BID, TAB 03/12/16 Primary Care Provider Joaquin Newby MD Pending Labs Laboratory Tests Test 02/12/17 17:18 02/12/17 20:55 02/13/17 01:35 02/13/17 05:07 Bedside Glucose 97mg/dL (70-220) 109mg/dL (70-220) 121mg/dL (70-220) White Blood Count 7.210^3/ul (4.8-10.8) Red Blood Count 3.2610^6/ul (4.70-6.10) Hemoglobin 8.9g/dl (14.0-18.0) Hematocrit 28.6% (42.0-52.0) Mean Corpuscular Volume 87.7fl (82.0-101.0) Mean Corpuscular Hemoglobin 27.3pg (29.0-33.0) Mean Corpuscular Hemoglobin Concent 31.1g/dl (32.0-37.0) Red Cell Distribution Width 18.1% (11.5-14.5) Platelet Count 95882^3/UL (140-415) Mean Platelet Volume 9.6fl (7.4-10.4) Neutrophils % 80.8% (39.0-77.0) Lymphocytes % 5.2% (15.0-51.0) Monocytes % 11.5% (0.0-11.0) Eosinophils % 1.8% (0.0-7.0) Basophils % 0.4% (0.0-2.0) Nucleated Red Blood Cells % 0.0/100WBC (0.0-0.0) Neutrophils # 5.810^3/ul (1.6-7.5) Lymphocytes # 0.410^3/ul (0.8-2.9) Monocytes # 0.810^3/ul (0.3-0.9) Eosinophils # 0.110^3/ul (0.0-0.5) Basophils # 0.010^3/ul (0.0-0.1) Nucleated Red Blood Cells # 0.010^3/ul (0.0-0.0) Sodium Level 137mmol/L (135-144) Potassium Level 5.9mmol/L (3.5-5.1) Chloride Level 97mmol/L (97-110) Carbon Dioxide Level 31mmol/L (21-31) Anion Gap 15 (8-16) Blood Urea Nitrogen 40mg/dl (7-20) Creatinine 8.31mg/dl (0.61-1.24) Glucose Level 104mg/dl (70-220) Calcium Level 7.8mg/dl (8.4-10.2) Phosphorus Level 6.1mg/dl (2.5-4.9) Random Vancomycin Level 10.6ug/ml Test 02/13/17 08:11 02/13/17 11:54 Bedside Glucose 90mg/dL (70-220) 129mg/dL (70-220) IHSAN SULLIVAN Feb 13, 2017 17:16
--- NOTE | 2017-02-13 19:55 | CONS ---
DATE OF ADMISSION: 02/10/2017 DATE OF CONSULTATION: CARDIAC ELECTROPHYSIOLOGY CONSULTATION INDICATION FOR CONSULTATION: History of peripheral vascular disease, coronary disease, hypertension , hyperlipidemia, as well as a history of renal failure, on hemodialysis, as well as diabetes, as we ll as palpitations, atrial fibrillation and a pacemaker implant. HISTORY OF PRESENT ILLNESS: The patient presented to the hospital because of significant lower extr emity discomfort and pain and aching. The patient does have a history of lower extremity gangrene of the toe which has now taken over to t he heel as well as to the plantar area. The patient was recommended by at [facility] to have an amputation of his foot, bibi paz the patient had second thoughts about this and did not want the amputation as of yet. The patie nt presented to this hospital because of significant pain. I have reviewed the labs. The patient's laboratory does not reveal anything significant at this point in regards to the infect ion. The primary care physician will follow up with the labs as well. The pacemaker which was implanted by myself in the right lower quadrant of the abdomen due to the fa ct that has bilateral subclavian vein stenosis is within normal limits by visual exam. However the pacemaker will be interrogated later on. The patient is not complaining of chest pain or shortness of breath. PHYSICAL EXAMINATION: CHEST: Clear to auscultation. CARDIOVASCULAR: S1, S2, no rubs or gallops. ABDOMEN: Soft, nontender. EXTREMITIES: The patient's left leg has gangrene, specifically the foot. The patient will be continued on medical therapy. IMPRESSION: History of pacemaker implant, hypertension, hyperlipidemia, diabetes, renal failure, pe ripheral disease, coronary disease. The patient will be treated medically and follow up with me. At this point the patient was also recommended to have an amputation of the foot, however he was hav ing second thoughts. I will speak with the daughter due to the fact that at this point the foot is gangrenous and will require to be amputated. Dictated By: ARVIND SHIRLEY MD LP/ZACK Conf#: [id number] DID#: [id number] CC: ARVIND SHIRLEY MD;*EndCC*
[2017-02-13 20:14] VITALS: BP 125/61; RESP 20
[2017-02-13] MEDS: ATORVASTATIN 40 MG TAB PO SCH (20:35)
[2017-02-14] VITALS (15 sets, daily range): BP systolic 133–157; BP diastolic 62–86; PULSE 30–78; RESP 18–20
[2017-02-14] MEDS: HYDROCODONE/APAP (5/325) TAB PO PRN ×4 (00:53→18:33)
[2017-02-14] MEDS: ACCU-CHEK XX SCH (02:00)
[2017-02-14] MEDS: INSULIN ASPART [NOVOLOG] 3 ML PEN SC SCH ×4 (08:08→20:11)
[2017-02-14] MEDS: LOSARTAN 25 MG TAB PO SCH (08:09)
[2017-02-14] MEDS: AMLODIPINE 5 MG TAB PO SCH ×2 (08:09→20:24)
[2017-02-14] MEDS: NIFEdipine (XL) 60 MG TAB PO SCH (09:00)
[2017-02-14] MEDS: METOPROLOL (XL) 25 MG TAB PO SCH (09:00)
[2017-02-14] MEDS: CALCIUM ACETATE 667 MG CAP PO SCH ×3 (09:17→17:29)
[2017-02-14] MEDS: SENNA TAB PO SCH ×2 (09:17→20:23)
[2017-02-14] MEDS: SEVELAMER 800 MG TAB PO SCH ×3 (09:17→17:29)
[2017-02-14] MEDS: CLOPIDOGREL 75 MG TAB PO SCH (09:18)
[2017-02-14] MEDS: CINACALCET 30 MG TAB PO SCH ×2 (09:18→22:00)
[2017-02-14] MEDS: CEFEPIME 1GM/50 ML (PMX) 50 ML IVPB SCH (11:24)
--- NOTE | 2017-02-14 13:56 | CONS ---
Date/Time of Note Date/Time of Note DATE: 02/14/17 TIME: 13:56 Consult Date/Type/Reason Admit Date/Time Feb 10, 2017 at 23:00 Initial Consult Date 02/11/17 Type of Consultation: ID Ordering Provider: POLY THRASHER MD Objective Vital Signs Date Time Temp Pulse Resp B/P Pulse Ox O2 Delivery O2 Flow Rate FiO2 02/14/17 09:05 70 14 02/14/17 07:17 98.8 141/65 69 02/11/17 00:48 Room Air Intake and Output 02/13/17 02/13/17 02/14/17 15:00 23:00 07:00 Intake Total 1180 ml Balance 1180 ml Results/Medications Result Diagram: 02/13/17 0507 02/13/17 0507 Results 24 hrs Laboratory Tests Test 02/13/17 17:38 02/13/17 20:40 02/14/17 08:04 02/14/17 12:07 Bedside Glucose 98 109 113 127 Medications Current Medications Morphine Sulfate (morphine) 2 mg Q4H PRN IV pain Last administered on 01:44; Admin Dose 2 MG; Start 02/11/17 at 01:30 Ondansetron HCl (Zofran Inj) 4 mg Q6H PRN IV NAUSEA AND/OR VOMITING Last administered on 02/13/17 16:59; Admin Dose 4 MG; Start 02/11/17 at 01:30 Diagnostic Test (Pha) (Accu-Chek) 1 ea 02 XX Last administered on 02/13/17 01 :35; Admin Dose 1 EA; Start 02/11/17 at 02:00 Miscellaneous Information 1 ea NOTE XX ; Start 02/11/17 at 02:00 Glucose (Glutose) 15 gm Q15M PRN PO DECREASED GLUCOSE; Start 02/11/17 at 02:00 Glucose (Glutose) 22.5 gm Q15M PRN PO DECREASED GLUCOSE; Start 02/11/17 at 02: 00 Dextrose (D50w Syringe) 25 ml Q15M PRN IV DECREASED GLUCOSE; Start 02/11/17 at 02:00 Dextrose (D50w Syringe) 50 ml Q15M PRN IV DECREASED GLUCOSE; Start 02/11/17 at 02:00 Glucagon (Glucagen) 1 mg Q15M PRN IM DECREASED GLUCOSE; Start 02/11/17 at 02: 00 Glucose (Glutose) 15 gm Q15M PRN BUCCAL DECREASED GLUCOSE; Start 02/11/17 at 02:00 Amlodipine Besylate (Norvasc) 5 mg BID PO Last administered on 02/13/17 20:36 ; Admin Dose 5 MG; Start 02/11/17 at 21:00 Atorvastatin Calcium (Lipitor) 40 mg HS PO Last administered on 02/13/17 20: 35; Admin Dose 40 MG; Start 02/11/17 at 21:00 Cinacalcet (Sensipar) 30 mg BID PO Last administered on 02/14/17 09:18; Admin Dose 30 MG; Start 02/11/17 at 21:00 Clopidogrel Bisulfate (plaVIX) 75 mg DAILY PO Last administered on 02/14/17 09:18; Admin Dose 75 MG; Start 02/12/17 at 09:00 Losartan Potassium (Cozaar) 25 mg DAILY PO Last administered on 02/13/17 08: 14; Admin Dose 25 MG; Start 02/12/17 at 09:00 Metoprolol Succinate (Toprol Xl) 25 mg DAILY PO Last administered on 08:15; Admin Dose 25 MG; Start 02/12/17 at 09:00 Nifedipine (Procardia Xl) 60 mg DAILY PO Last administered on 02/13/17 08:13 ; Admin Dose 60 MG; Start 02/12/17 at 09:00 Zolpidem Tartrate (Ambien) 5 mg QHS PRN PO INSOMNIA; Start 02/11/17 at 13:00 Acetaminophen/ Hydrocodone Bitart ([place] (5/325)) 1 tab Q4H PRN PO PAIN Last administered on 02/14/17 04:44; Admin Dose 1 TAB; Start 02/11/17 at 17:00 Clonidine 0.1 mg 0.1 mg Q6H PRN PO ELEVATED SYSTOLIC BP Last administered on 14:10; Admin Dose 0.1 MG; Start 02/12/17 at 01:30 Cefepime HCl (Maxipime 1gm/50 ml (Pmx)) 50 ml @ 100 mls/hr DAILY IVPB Last administered on 02/14/17 11:24; Admin Dose 100 MLS/HR; Start 02/12/17 at 14: 00 Epoetin Jorge Luis (Epogen (Esrd)) 4,000 units MoWeFr@17 SC Last administered on 17:28; Admin Dose 4,000 UNITS; Start 02/12/17 at 17:00 Senna (Senokot) 2 tab BID PO Last administered on 02/14/17 09:17; Admin Dose 2 TAB; Start 02/13/17 at 09:00 Metoclopramide HCl (Reglan) 5 mg Q6H PRN IV N/V Last administered on 03:35; Admin Dose 5 MG; Start 02/13/17 at 03:30 Docusate Sodium (Colace) 100 mg BID PRN PO CONSTIPATION; Start 02/13/17 at 13: 30 Bisacodyl (Dulcolax) 10 mg DAILY PRN PO CONSTIPATION; Start 02/13/17 at 13:30 Magnesium Hydroxide (Milk Of Mag) 30 ml BID PRN PO CONSTIPATION; Start at 13:30 Assessment/Plan Chief Complaint/Hosp Course SUBJECTIVE: No events overnight. The patient is awake, looks comfortable, no fevers. INDWELLINGS: Left upper extremity AV fistula. MICROBIOLOGY: Blood cultures had been negative. ANTIMICROBIALS: The patient is on vancomycin and Cefepime PHYSICAL EXAMINATION: GENERAL: Well-developed, chronically ill-appearing, elderly man in no distress. HEENT: Head atraumatic, normocephalic. Sclerae anicteric. Buccal mucosa dry. NECK: Supple. CHEST: Rise symmetrical. Breath sounds diminished to bases. HEART: S1, S2. ABDOMEN: Soft. Bowel tones present. EXTREMITIES: Left lower extremity gangrene. ASSESSMENT: 1. Left lower extremity gangrene. 2. Peripheral vascular disease. 3. End-stage renal disease, hemodialysis dependent. 4. Hypertension. 5. Constipation PLAN: The patient remains stable. Continue abx, stool softeners and prn laxatives. Follow podiatry and vascular recommendations. HD per renal Problems: SHITAL MCKEON NP Feb 14, 2017 13:56
[2017-02-14] MEDS: MAGNESIUM HYDROXIDE 30ML CUP PO PRN (14:17)
--- NOTE | 2017-02-14 17:02 | PN ---
Date/Time of Note Date/Time of Note DATE: 02/14/17 TIME: 16:55 Assessment/Plan VTE Prophylaxis VTE Prophylaxis Intervention: SCD's Lines/Catheters [facility]from [facility] Peripheral IV Urinary Cath still in place: No (HD patient) Assessment/Plan Chief Complaint/Hosp Course Patient is bradycardic rate is in the 30s, BP is wnl, complains of abdominal pain, 12-lead EKG now transferred to telemetry floor, stat BMP and magnesium today. Dr. Pike is following patient in a cardiology consultation Assessment/Plan - Hyperkalemia, patient is in is undergoing hemodialysis today, check BMP tomorrow. - Left foot multiple gangrenous wounds. Dr. Zaragoza is following in vascular surgery consultation, Dr. Jackman is following in podiatry consultation. Dr. Tobias is following in ID consultation. Continue antibiotics per ID , continue current wound care. - End-stage renal disease, hemodialysis dependent. Dr. Newby is following in nephrology consultation. Continue on hemodialysis. - Hypertension. Continue home antihypertensive medication. Monitor blood pressure. - CAD - Permanent Pacemaker - Legally blind status. - Anemia of chronic disease. - Severe peripheral vascular disease. Further recommendations based on clinical course. Plan of care discussed with Dr. French. Problems: Subjective 24 Hr Interval Summary Constitutional: no complaints Exam/Review of Systems Vital Signs Vitals Vital Signs Date Time Temp Pulse Resp B/P Pulse Ox O2 Delivery O2 Flow Rate FiO2 02/14/17 16:06 69 02/14/17 14:00 140/70 02/14/17 09:05 14 02/14/17 07:17 98.8 69 02/11/17 00:48 Room Air Intake and Output 02/13/17 02/13/17 02/14/17 15:00 23:00 07:00 Intake Total 1180 ml Balance 1180 ml Exam Constitutional: alert, oriented Head: normocephalic Neck: supple Respiratory: normal air movement Cardiovascular: nl pulses, other (Permanent pacemaker right groin) Gastrointestinal: non-tender, soft Extremities: normal pulses Results Result Diagram: 02/13/17 0507 02/13/17 0507 Results 24 hrs Laboratory Tests Test 02/13/17 17:38 02/13/17 20:40 02/14/17 08:04 02/14/17 12:07 Bedside Glucose 98 109 113 127 Medications Medications Current Medications Morphine Sulfate (morphine) 2 mg Q4H PRN IV pain Last administered on 01:44; Admin Dose 2 MG; Start 02/11/17 at 01:30 Ondansetron HCl (Zofran Inj) 4 mg Q6H PRN IV NAUSEA AND/OR VOMITING Last administered on 02/13/17 16:59; Admin Dose 4 MG; Start 02/11/17 at 01:30 Diagnostic Test (Pha) (Accu-Chek) 1 ea 02 XX Last administered on 02/13/17 01 :35; Admin Dose 1 EA; Start 02/11/17 at 02:00 Miscellaneous Information 1 ea NOTE XX ; Start 02/11/17 at 02:00 Glucose (Glutose) 15 gm Q15M PRN PO DECREASED GLUCOSE; Start 02/11/17 at 02:00 Glucose (Glutose) 22.5 gm Q15M PRN PO DECREASED GLUCOSE; Start 02/11/17 at 02: 00 Dextrose (D50w Syringe) 25 ml Q15M PRN IV DECREASED GLUCOSE; Start 02/11/17 at 02:00 Dextrose (D50w Syringe) 50 ml Q15M PRN IV DECREASED GLUCOSE; Start 02/11/17 at 02:00 Glucagon (Glucagen) 1 mg Q15M PRN IM DECREASED GLUCOSE; Start 02/11/17 at 02: 00 Glucose (Glutose) 15 gm Q15M PRN BUCCAL DECREASED GLUCOSE; Start 02/11/17 at 02:00 Amlodipine Besylate (Norvasc) 5 mg BID PO Last administered on 02/13/17 20:36 ; Admin Dose 5 MG; Start 02/11/17 at 21:00 Atorvastatin Calcium (Lipitor) 40 mg HS PO Last administered on 02/13/17 20: 35; Admin Dose 40 MG; Start 02/11/17 at 21:00 Cinacalcet (Sensipar) 30 mg BID PO Last administered on 02/14/17 09:18; Admin Dose 30 MG; Start 02/11/17 at 21:00 Clopidogrel Bisulfate (plaVIX) 75 mg DAILY PO Last administered on 02/14/17 09:18; Admin Dose 75 MG; Start 02/12/17 at 09:00 Losartan Potassium (Cozaar) 25 mg DAILY PO Last administered on 02/13/17 08: 14; Admin Dose 25 MG; Start 02/12/17 at 09:00 Metoprolol Succinate (Toprol Xl) 25 mg DAILY PO Last administered on 08:15; Admin Dose 25 MG; Start 02/12/17 at 09:00 Nifedipine (Procardia Xl) 60 mg DAILY PO Last administered on 02/13/17 08:13 ; Admin Dose 60 MG; Start 02/12/17 at 09:00 Zolpidem Tartrate (Ambien) 5 mg QHS PRN PO INSOMNIA; Start 02/11/17 at 13:00 Acetaminophen/ Hydrocodone Bitart ([place] (5/325)) 1 tab Q4H PRN PO PAIN Last administered on 02/14/17 14:18; Admin Dose 1 TAB; Start 02/11/17 at 17:00 Clonidine 0.1 mg 0.1 mg Q6H PRN PO ELEVATED SYSTOLIC BP Last administered on 14:10; Admin Dose 0.1 MG; Start 02/12/17 at 01:30 Cefepime HCl (Maxipime 1gm/50 ml (Pmx)) 50 ml @ 100 mls/hr DAILY IVPB Last administered on 02/14/17 11:24; Admin Dose 100 MLS/HR; Start 02/12/17 at 14: 00 Epoetin Jorge Luis (Epogen (Esrd)) 4,000 units MoWeFr@17 SC Last administered on 17:28; Admin Dose 4,000 UNITS; Start 02/12/17 at 17:00 Senna (Senokot) 2 tab BID PO Last administered on 02/14/17 09:17; Admin Dose 2 TAB; Start 02/13/17 at 09:00 Metoclopramide HCl (Reglan) 5 mg Q6H PRN IV N/V Last administered on 03:35; Admin Dose 5 MG; Start 02/13/17 at 03:30 Docusate Sodium (Colace) 100 mg BID PRN PO CONSTIPATION; Start 02/13/17 at 13: 30 Bisacodyl (Dulcolax) 10 mg DAILY PRN PO CONSTIPATION; Start 02/13/17 at 13:30 Magnesium Hydroxide (Milk Of Mag) 30 ml BID PRN PO CONSTIPATION Last administered on 02/14/17t 14:17; Admin Dose 30 ML; Start 02/14/17 at 13:30 VIV KING Feb 14, 2017 17:02
[2017-02-14 18:10] LABS: ABNORMAL IP MESSAGE 1; BASOPHILS % 0.5 % (0.0-2.0); EOSINOPHILS # 0.1 10^3/ul (0.0-0.5); EOSINOPHILS % 1.7 % (0.0-7.0); HEMATOCRIT 28.5 % (42.0-52.0); HEMOGLOBIN 9.2 g/dl (14.0-18.0); LYMPHOCYTES # 0.5 10^3/ul (0.8-2.9); LYMPHOCYTES % 8.2 % (15.0-51.0); MEAN CORPUSCULAR HGB CONC 32.3 g/dl (32.0-37.0); MEAN CORPUSCULAR VOLUME 86.9 fl (82.0-101.0); MEAN PLATELET VOLUME 9.3 fl (7.4-10.4); MONOCYTES % 16.2 % (0.0-11.0); NEUTROPHIL # 4.7 10^3/ul (1.6-7.5); NEUTROPHILS % 73.2 % (39.0-77.0); PLATELET COUNT 240 10^3/UL (140-415); POSITIVE DIFF @See below; RED BLOOD COUNT 3.28 10^6/ul (4.70-6.10); RED CELL DISTRIBUTION WIDTH 17.9 % (11.5-14.5); WHITE BLOOD COUNT 6.4 10^3/ul (4.8-10.8)
[2017-02-14 18:33] LABS: CALCIUM 8.1 mg/dl (8.4-10.2); CREATININE 7.27 mg/dl (0.61-1.24)
[2017-02-14] MEDS: EPOETIN 4000 UNITS/1 ML INJ (ESRD) SC SCH (18:34)
[2017-02-14 18:35] LABS: POTASSIUM 4.5 mmol/L (3.5-5.1)
[2017-02-14 18:45] LABS: TROPONIN-I 0.103 ng/ml (0.00-0.12)
--- NOTE | 2017-02-14 19:30 | CONS ---
Date/Time of Note Date/Time of Note DATE: 02/14/17 TIME: 19:29 Assessment/Plan Assessment/Plan Additional Assessment/Plan 61 yo male with 1) PVD with non healing ulcer non surgical 2) ESRD on HD 3) Chronic HTN 4) DM with complications 5) Anemia Chronic cont maintenance HD schedule 3x week no new recommendations cont current treatment and plan Consultation Date/Type/Reason Admit Date/Time Feb 10, 2017 at 23:00 Initial Consult Date 02/11/17 Type of Consultation: Renal Referring Provider: POLY THRASHER MD 24 HR Interval Summary Free Text/Dictation no new complaints Exam/Review of Systems Vital Signs Vitals Vital Signs Date Time Temp Pulse Resp B/P Pulse Ox O2 Delivery O2 Flow Rate FiO2 02/14/17 16:06 69 02/14/17 16:00 98.7 18 151/78 94 Room Air Intake and Output 02/13/17 02/13/17 02/14/17 15:00 23:00 07:00 Intake Total 1180 ml Balance 1180 ml Exam Constitutional: No distress ENMT: mucosa pink and moist Neck: No jvd Respiratory: clear to auscultation Cardiovascular: regular rate and rhythm, No edema Gastrointestinal: soft 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 Results Result Diagram: 02/14/17 1738 02/14/17 1735 Results 24 hrs Laboratory Tests Test 02/13/17 20:40 02/14/17 08:04 02/14/17 12:07 02/14/17 17:05 Bedside Glucose 109 113 127 92 Test 02/14/17 17:35 02/14/17 17:38 Sodium Level 130 L Potassium Level 4.5 Chloride Level 93 L Carbon Dioxide Level 34 H Anion Gap 8 Blood Urea Nitrogen 34 H Creatinine 7.27 H Glucose Level 91 Calcium Level 8.1 L Troponin I 0.103 White Blood Count 6.4 Red Blood Count 3.28 L Hemoglobin 9.2 L Hematocrit 28.5 L Mean Corpuscular Volume 86.9 Mean Corpuscular Hemoglobin 28.0 L Mean Corpuscular Hemoglobin Concent 32.3 Red Cell Distribution Width 17.9 H Platelet Count 240 Mean Platelet Volume 9.3 Neutrophils % 73.2 Lymphocytes % 8.2 L Monocytes % 16.2 H Eosinophils % 1.7 Basophils % 0.5 Nucleated Red Blood Cells % 0.0 Neutrophils # 4.7 Lymphocytes # 0.5 L Monocytes # 1.0 H Eosinophils # 0.1 Basophils # 0.0 Nucleated Red Blood Cells # 0.0 Medications Medications Current Medications Morphine Sulfate (morphine) 2 mg Q4H PRN IV pain Last administered on 01:44; Admin Dose 2 MG; Start 02/11/17 at 01:30 Ondansetron HCl (Zofran Inj) 4 mg Q6H PRN IV NAUSEA AND/OR VOMITING Last administered on 02/13/17 16:59; Admin Dose 4 MG; Start 02/11/17 at 01:30 Diagnostic Test (Pha) (Accu-Chek) 1 ea 02 XX Last administered on 02/13/17 01 :35; Admin Dose 1 EA; Start 02/11/17 at 02:00 Miscellaneous Information 1 ea NOTE XX ; Start 02/11/17 at 02:00 Glucose (Glutose) 15 gm Q15M PRN PO DECREASED GLUCOSE; Start 02/11/17 at 02:00 Glucose (Glutose) 22.5 gm Q15M PRN PO DECREASED GLUCOSE; Start 02/11/17 at 02: 00 Dextrose (D50w Syringe) 25 ml Q15M PRN IV DECREASED GLUCOSE; Start 02/11/17 at 02:00 Dextrose (D50w Syringe) 50 ml Q15M PRN IV DECREASED GLUCOSE; Start 02/11/17 at 02:00 Glucagon (Glucagen) 1 mg Q15M PRN IM DECREASED GLUCOSE; Start 02/11/17 at 02: 00 Glucose (Glutose) 15 gm Q15M PRN BUCCAL DECREASED GLUCOSE; Start 02/11/17 at 02:00 Amlodipine Besylate (Norvasc) 5 mg BID PO Last administered on 02/13/17 20:36 ; Admin Dose 5 MG; Start 02/11/17 at 21:00 Atorvastatin Calcium (Lipitor) 40 mg HS PO Last administered on 02/13/17 20: 35; Admin Dose 40 MG; Start 02/11/17 at 21:00 Cinacalcet (Sensipar) 30 mg BID PO Last administered on 02/14/17 09:18; Admin Dose 30 MG; Start 02/11/17 at 21:00 Clopidogrel Bisulfate (plaVIX) 75 mg DAILY PO Last administered on 02/14/17 09:18; Admin Dose 75 MG; Start 02/12/17 at 09:00 Losartan Potassium (Cozaar) 25 mg DAILY PO Last administered on 02/13/17 08: 14; Admin Dose 25 MG; Start 02/12/17 at 09:00 Metoprolol Succinate (Toprol Xl) 25 mg DAILY PO Last administered on 08:15; Admin Dose 25 MG; Start 02/12/17 at 09:00 Nifedipine (Procardia Xl) 60 mg DAILY PO Last administered on 02/13/17 08:13 ; Admin Dose 60 MG; Start 02/12/17 at 09:00 Zolpidem Tartrate (Ambien) 5 mg QHS PRN PO INSOMNIA; Start 02/11/17 at 13:00 Acetaminophen/ Hydrocodone Bitart ([place] (5/325)) 1 tab Q4H PRN PO PAIN Last administered on 02/14/17 18:33; Admin Dose 1 TAB; Start 02/11/17 at 17:00 Clonidine 0.1 mg 0.1 mg Q6H PRN PO ELEVATED SYSTOLIC BP Last administered on 14:10; Admin Dose 0.1 MG; Start 02/12/17 at 01:30 Cefepime HCl (Maxipime 1gm/50 ml (Pmx)) 50 ml @ 100 mls/hr DAILY IVPB Last administered on 02/14/17 11:24; Admin Dose 100 MLS/HR; Start 02/12/17 at 14: 00 Epoetin Jorge Luis (Epogen (Esrd)) 4,000 units MoWeFr@17 SC Last administered on 18:34; Admin Dose 4,000 UNITS; Start 02/12/17 at 17:00 Senna (Senokot) 2 tab BID PO Last administered on 02/14/17 09:17; Admin Dose 2 TAB; Start 02/13/17 at 09:00 Metoclopramide HCl (Reglan) 5 mg Q6H PRN IV N/V Last administered on 03:35; Admin Dose 5 MG; Start 02/13/17 at 03:30 Docusate Sodium (Colace) 100 mg BID PRN PO CONSTIPATION; Start 02/13/17 at 13: 30 Bisacodyl (Dulcolax) 10 mg DAILY PRN PO CONSTIPATION; Start 02/13/17 at 13:30 Magnesium Hydroxide (Milk Of Mag) 30 ml BID PRN PO CONSTIPATION Last administered on 02/14/17t 14:17; Admin Dose 30 ML; Start 02/14/17 at 13:30 PIPER FELIX MD Feb 14, 2017 19:30
[2017-02-14] MEDS: morphine 2 MG INJ IV PRN (20:23)
[2017-02-14] MEDS: ATORVASTATIN 40 MG TAB PO SCH (20:23)
[2017-02-15] VITALS (13 sets, daily range): BP systolic 135–160; BP diastolic 65–80; PULSE 69–84; RESP 18–19
[2017-02-15] MEDS: morphine 2 MG INJ IV PRN ×2 (01:08→04:27)
[2017-02-15] MEDS: ACCU-CHEK XX SCH ×2 (01:09→20:09)
[2017-02-15] MEDS: HYDROCODONE/APAP (5/325) TAB PO PRN ×3 (06:06→20:06)
[2017-02-15] MEDS: INSULIN ASPART [NOVOLOG] 3 ML PEN SC SCH ×4 (07:55→20:08)
[2017-02-15] MEDS: CLOPIDOGREL 75 MG TAB PO SCH (08:42)
[2017-02-15] MEDS: SENNA TAB PO SCH ×2 (08:42→20:08)
[2017-02-15] MEDS: CINACALCET 30 MG TAB PO SCH ×2 (08:42→20:08)
[2017-02-15] MEDS: SEVELAMER 800 MG TAB PO SCH ×3 (08:43→18:07)
[2017-02-15] MEDS: NIFEdipine (XL) 60 MG TAB PO SCH (08:43)
[2017-02-15] MEDS: AMLODIPINE 5 MG TAB PO SCH ×2 (08:43→20:05)
[2017-02-15] MEDS: LOSARTAN 25 MG TAB PO SCH (08:44)
[2017-02-15] MEDS: CEFEPIME 1GM/50 ML (PMX) 50 ML IVPB SCH (08:44)
[2017-02-15] MEDS: METOPROLOL (XL) 25 MG TAB PO SCH (08:44)
[2017-02-15] MEDS: CALCIUM ACETATE 667 MG CAP PO SCH ×3 (08:46→18:06)
--- NOTE | 2017-02-15 08:56 | RADRPT ---
PROCEDURE: XR Abdomen. CLINICAL INDICATION: Abdominal pain TECHNIQUE: AP abdomen x-ray. COMPARISON: None FINDINGS: The bowel gas pattern is normal. There is no evidence of obstruction. There is diffuse, mild constip ation. There are no findings of free air or perforation. There is an inferior approach cardiac pacer present. There are prominent, atherosclerotic, vascular calcifications throughout the abdomen. The osseus structures are unremarkable. IMPRESSION: Mild constipation. No findings of bowel obstruction, free air, or bowel perforation. Inferior appro ach cardiac pacer, and prominent abdominal atherosclerotic vascular calcifications. RPTAT: QQ .Crista Eastman MD, MD Date Time Electronically viewed and signed by .Crista Eastman MD, on 02/15/2017 08:55 .F/
[2017-02-15] MEDS: MAGNESIUM HYDROXIDE 30ML CUP PO PRN ×2 (10:01→21:41)
--- NOTE | 2017-02-15 11:19 | PN ---
Date/Time of Note Date/Time of Note DATE: 02/15/17 TIME: 11:18 Assessment/Plan VTE Prophylaxis VTE Prophylaxis Intervention: other Lines/Catheters [facility] [place] Urinary Cath still in place: No (HD patient) Assessment/Plan Chief Complaint/Hosp Course - Hyperkalemia, patient is in is undergoing hemodialysis today, check BMP tomorrow. - Left foot multiple gangrenous wounds. Dr. Zaragoza is following in vascular surgery consultation, Dr. Jackman is following in podiatry consultation. Dr. Tobias is following in ID consultation. Continue antibiotics per ID , continue current wound care. - End-stage renal disease, hemodialysis dependent. Dr. Newby is following in nephrology consultation. Continue on hemodialysis. - Hypertension. Continue home antihypertensive medication. Monitor blood pressure. - CAD - Permanent Pacemaker - Legally blind status. - Anemia of chronic disease. - Severe peripheral vascular disease. Problems: Subjective 24 Hr Interval Summary Free Text/Dictation Patient has no complaints Exam/Review of Systems Vital Signs Vitals Vital Signs Date Time Temp Pulse Resp B/P Pulse Ox O2 Delivery O2 Flow Rate FiO2 02/15/17 08:53 69 02/15/17 07:21 98.6 19 135/78 98 02/14/17 16:00 Room Air Intake and Output 02/14/17 02/14/17 02/15/17 15:00 23:00 07:00 Intake Total 690 ml 240 ml 500 ml Output Total 2400 ml Balance -1710 ml 240 ml 500 ml Exam Constitutional: well developed Head: atraumatic, normocephalic Neck: supple Respiratory: clear to auscultation Cardiovascular: regular rate and rhythm Gastrointestinal: non-tender, soft Extremities: normal pulses Results Result Diagram: 02/14/17 1738 02/14/17 1735 Results 24 hrs Laboratory Tests Test 02/14/17 12:07 02/14/17 17:05 02/14/17 17:35 02/14/17 17:38 Bedside Glucose 127 92 Sodium Level 130 L Potassium Level 4.5 Chloride Level 93 L Carbon Dioxide Level 34 H Anion Gap 8 Blood Urea Nitrogen 34 H Creatinine 7.27 H Glucose Level 91 Calcium Level 8.1 L Troponin I 0.103 White Blood Count 6.4 Red Blood Count 3.28 L Hemoglobin 9.2 L Hematocrit 28.5 L Mean Corpuscular Volume 86.9 Mean Corpuscular Hemoglobin 28.0 L Mean Corpuscular Hemoglobin Concent 32.3 Red Cell Distribution Width 17.9 H Platelet Count 240 Mean Platelet Volume 9.3 Neutrophils % 73.2 Lymphocytes % 8.2 L Monocytes % 16.2 H Eosinophils % 1.7 Basophils % 0.5 Nucleated Red Blood Cells % 0.0 Neutrophils # 4.7 Lymphocytes # 0.5 L Monocytes # 1.0 H Eosinophils # 0.1 Basophils # 0.0 Nucleated Red Blood Cells # 0.0 Test 02/14/17 19:58 02/15/17 05:57 02/15/17 08:12 Bedside Glucose 96 87 Troponin I 0.106 Medications Medications Current Medications Morphine Sulfate (morphine) 2 mg Q4H PRN IV pain Last administered on 04:27; Admin Dose 2 MG; Start 02/11/17 at 01:30 Ondansetron HCl (Zofran Inj) 4 mg Q6H PRN IV NAUSEA AND/OR VOMITING Last administered on 02/13/17 16:59; Admin Dose 4 MG; Start 02/11/17 at 01:30 Diagnostic Test (Pha) (Accu-Chek) 1 ea 02 XX Last administered on 02/13/17 01 :35; Admin Dose 1 EA; Start 02/11/17 at 02:00 Miscellaneous Information 1 ea NOTE XX ; Start 02/11/17 at 02:00 Glucose (Glutose) 15 gm Q15M PRN PO DECREASED GLUCOSE; Start 02/11/17 at 02:00 Glucose (Glutose) 22.5 gm Q15M PRN PO DECREASED GLUCOSE; Start 02/11/17 at 02: 00 Dextrose (D50w Syringe) 25 ml Q15M PRN IV DECREASED GLUCOSE; Start 02/11/17 at 02:00 Dextrose (D50w Syringe) 50 ml Q15M PRN IV DECREASED GLUCOSE; Start 02/11/17 at 02:00 Glucagon (Glucagen) 1 mg Q15M PRN IM DECREASED GLUCOSE; Start 02/11/17 at 02: 00 Glucose (Glutose) 15 gm Q15M PRN BUCCAL DECREASED GLUCOSE; Start 02/11/17 at 02:00 Amlodipine Besylate (Norvasc) 5 mg BID PO Last administered on 02/15/17 08:43 ; Admin Dose 5 MG; Start 02/11/17 at 21:00 Atorvastatin Calcium (Lipitor) 40 mg HS PO Last administered on 02/14/17 20: 23; Admin Dose 40 MG; Start 02/11/17 at 21:00 Cinacalcet (Sensipar) 30 mg BID PO Last administered on 02/15/17 08:42; Admin Dose 30 MG; Start 02/11/17 at 21:00 Clopidogrel Bisulfate (plaVIX) 75 mg DAILY PO Last administered on 02/15/17 08:42; Admin Dose 75 MG; Start 02/12/17 at 09:00 Losartan Potassium (Cozaar) 25 mg DAILY PO Last administered on 02/15/17 08: 44; Admin Dose 25 MG; Start 02/12/17 at 09:00 Metoprolol Succinate (Toprol Xl) 25 mg DAILY PO Last administered on 08:44; Admin Dose 25 MG; Start 02/12/17 at 09:00 Nifedipine (Procardia Xl) 60 mg DAILY PO Last administered on 02/15/17 08:43 ; Admin Dose 60 MG; Start 02/12/17 at 09:00 Zolpidem Tartrate (Ambien) 5 mg QHS PRN PO INSOMNIA; Start 02/11/17 at 13:00 Acetaminophen/ Hydrocodone Bitart ([place] (5/325)) 1 tab Q4H PRN PO PAIN Last administered on 02/15/17 06:06; Admin Dose 1 TAB; Start 02/11/17 at 17:00 Clonidine 0.1 mg 0.1 mg Q6H PRN PO ELEVATED SYSTOLIC BP Last administered on 14:10; Admin Dose 0.1 MG; Start 02/12/17 at 01:30 Cefepime HCl (Maxipime 1gm/50 ml (Pmx)) 50 ml @ 100 mls/hr DAILY IVPB Last administered on 02/15/17 08:44; Admin Dose 100 MLS/HR; Start 02/12/17 at 14: 00 Epoetin Jorge Luis (Epogen (Esrd)) 4,000 units MoWeFr@17 SC Last administered on 18:34; Admin Dose 4,000 UNITS; Start 02/12/17 at 17:00 Senna (Senokot) 2 tab BID PO Last administered on 02/15/17 08:42; Admin Dose 2 TAB; Start 02/13/17 at 09:00 Metoclopramide HCl (Reglan) 5 mg Q6H PRN IV N/V Last administered on 03:35; Admin Dose 5 MG; Start 02/13/17 at 03:30 Docusate Sodium (Colace) 100 mg BID PRN PO CONSTIPATION; Start 02/13/17 at 13: 30 Bisacodyl (Dulcolax) 10 mg DAILY PRN PO CONSTIPATION; Start 02/13/17 at 13:30 Magnesium Hydroxide (Milk Of Mag) 30 ml BID PRN PO CONSTIPATION Last administered on 02/15/17 10:01; Admin Dose 30 ML; Start 02/14/17 at 13:30 FELISA TRIMBLE Feb 15, 2017 11:19
--- NOTE | 2017-02-15 12:39 | CONS ---
Date/Time of Note Date/Time of Note DATE: 02/15/17 TIME: 12:32 Assessment/Plan Assessment/Plan Chief Complaint/Hosp Course ID PROGRESS NOTE CURRENT ABX: DAY # => Vanco IV + Cefepime 24H INTERVAL SUMMARY * A/A/O - c/o pain in left foot , No fevers, BCx (-), VSS, NAD * LLEXT gangrene -> needs future vascular intervention for severe PAD \ Physical Exam Physical Exam Constitutional: VSS, NAD HEENT: Unremarkable Neck: Supple, full ROM Respiratory: Equal chest rise bilaterally, without dyspnea on observation Cardiovascular: nl pulses, regular rate and rhythm Gastrointestinal: Soft, NT Extremities: Warm == LLEXT gangrenous wounds Neurological: nl mental status, nl speech, nl strength ID ASSESSMENT 61 yo M admit with: 1. Left lower extremity gangrene. 2. Peripheral vascular disease=> Decreased arterial flow bilateral calfs 3. End-stage renal disease, hemodialysis dependent. * LUEXT AVF 4. Hypertension. 5. Constipation 6. Diabetes w/polyneuropathies: Dysreflexia, Peripheral, Retinopathy, Nephropathy ABX ALLERGIES: Fluorescein CURRENT ABX: DAY # => Vanco IV + Cefepime ID RECOMMENDATIONS 1. Continue ABX . Problems: Consultation Date/Type/Reason Admit Date/Time Feb 10, 2017 at 23:00 Initial Consult Date 02/11/17 Type of Consultation: ID Referring Provider: POLY THRASHER MD Exam/Review of Systems Vital Signs Vitals Vital Signs Date Time Temp Pulse Resp B/P Pulse Ox O2 Delivery O2 Flow Rate FiO2 02/15/17 11:24 98.4 67 18 137/65 98 02/14/17 16:00 Room Air Intake and Output 02/14/17 02/14/17 02/15/17 15:00 23:00 07:00 Intake Total 690 ml 240 ml 500 ml Output Total 2400 ml Balance -1710 ml 240 ml 500 ml Results Result Diagram: 02/14/17 1738 02/14/17 1735 Results 24 hrs Laboratory Tests Test 02/14/17 17:05 02/14/17 17:35 02/14/17 17:38 02/14/17 19:58 Bedside Glucose 92 96 Sodium Level 130 L Potassium Level 4.5 Chloride Level 93 L Carbon Dioxide Level 34 H Anion Gap 8 Blood Urea Nitrogen 34 H Creatinine 7.27 H Glucose Level 91 Calcium Level 8.1 L Troponin I 0.103 White Blood Count 6.4 Red Blood Count 3.28 L Hemoglobin 9.2 L Hematocrit 28.5 L Mean Corpuscular Volume 86.9 Mean Corpuscular Hemoglobin 28.0 L Mean Corpuscular Hemoglobin Concent 32.3 Red Cell Distribution Width 17.9 H Platelet Count 240 Mean Platelet Volume 9.3 Neutrophils % 73.2 Lymphocytes % 8.2 L Monocytes % 16.2 H Eosinophils % 1.7 Basophils % 0.5 Nucleated Red Blood Cells % 0.0 Neutrophils # 4.7 Lymphocytes # 0.5 L Monocytes # 1.0 H Eosinophils # 0.1 Basophils # 0.0 Nucleated Red Blood Cells # 0.0 Test 02/15/17 05:57 02/15/17 08:12 Troponin I 0.106 Bedside Glucose 87 Medications Medications Current Medications Morphine Sulfate (morphine) 2 mg Q4H PRN IV pain Last administered on 04:27; Admin Dose 2 MG; Start 02/11/17 at 01:30 Ondansetron HCl (Zofran Inj) 4 mg Q6H PRN IV NAUSEA AND/OR VOMITING Last administered on 02/13/17 16:59; Admin Dose 4 MG; Start 02/11/17 at 01:30 Diagnostic Test (Pha) (Accu-Chek) 1 ea 02 XX Last administered on 02/13/17 01 :35; Admin Dose 1 EA; Start 02/11/17 at 02:00 Miscellaneous Information 1 ea NOTE XX ; Start 02/11/17 at 02:00 Glucose (Glutose) 15 gm Q15M PRN PO DECREASED GLUCOSE; Start 02/11/17 at 02:00 Glucose (Glutose) 22.5 gm Q15M PRN PO DECREASED GLUCOSE; Start 02/11/17 at 02: 00 Dextrose (D50w Syringe) 25 ml Q15M PRN IV DECREASED GLUCOSE; Start 02/11/17 at 02:00 Dextrose (D50w Syringe) 50 ml Q15M PRN IV DECREASED GLUCOSE; Start 02/11/17 at 02:00 Glucagon (Glucagen) 1 mg Q15M PRN IM DECREASED GLUCOSE; Start 02/11/17 at 02: 00 Glucose (Glutose) 15 gm Q15M PRN BUCCAL DECREASED GLUCOSE; Start 02/11/17 at 02:00 Amlodipine Besylate (Norvasc) 5 mg BID PO Last administered on 02/15/17 08:43 ; Admin Dose 5 MG; Start 02/11/17 at 21:00 Atorvastatin Calcium (Lipitor) 40 mg HS PO Last administered on 02/14/17 20: 23; Admin Dose 40 MG; Start 02/11/17 at 21:00 Cinacalcet (Sensipar) 30 mg BID PO Last administered on 02/15/17 08:42; Admin Dose 30 MG; Start 02/11/17 at 21:00 Clopidogrel Bisulfate (plaVIX) 75 mg DAILY PO Last administered on 02/15/17 08:42; Admin Dose 75 MG; Start 02/12/17 at 09:00 Losartan Potassium (Cozaar) 25 mg DAILY PO Last administered on 02/15/17 08: 44; Admin Dose 25 MG; Start 02/12/17 at 09:00 Metoprolol Succinate (Toprol Xl) 25 mg DAILY PO Last administered on 08:44; Admin Dose 25 MG; Start 02/12/17 at 09:00 Nifedipine (Procardia Xl) 60 mg DAILY PO Last administered on 02/15/17 08:43 ; Admin Dose 60 MG; Start 02/12/17 at 09:00 Zolpidem Tartrate (Ambien) 5 mg QHS PRN PO INSOMNIA; Start 02/11/17 at 13:00 Acetaminophen/ Hydrocodone Bitart ([place] (5/325)) 1 tab Q4H PRN PO PAIN Last administered on 02/15/17 06:06; Admin Dose 1 TAB; Start 02/11/17 at 17:00 Clonidine 0.1 mg 0.1 mg Q6H PRN PO ELEVATED SYSTOLIC BP Last administered on 14:10; Admin Dose 0.1 MG; Start 02/12/17 at 01:30 Cefepime HCl (Maxipime 1gm/50 ml (Pmx)) 50 ml @ 100 mls/hr DAILY IVPB Last administered on 02/15/17 08:44; Admin Dose 100 MLS/HR; Start 02/12/17 at 14: 00 Epoetin Jorge Luis (Epogen (Esrd)) 4,000 units MoWeFr@17 SC Last administered on 18:34; Admin Dose 4,000 UNITS; Start 02/12/17 at 17:00 Senna (Senokot) 2 tab BID PO Last administered on 02/15/17 08:42; Admin Dose 2 TAB; Start 02/13/17 at 09:00 Metoclopramide HCl (Reglan) 5 mg Q6H PRN IV N/V Last administered on 03:35; Admin Dose 5 MG; Start 02/13/17 at 03:30 Docusate Sodium (Colace) 100 mg BID PRN PO CONSTIPATION; Start 02/13/17 at 13: 30 Bisacodyl (Dulcolax) 10 mg DAILY PRN PO CONSTIPATION; Start 02/13/17 at 13:30 Magnesium Hydroxide (Milk Of Mag) 30 ml BID PRN PO CONSTIPATION Last administered on 02/15/17 10:01; Admin Dose 30 ML; Start 02/14/17 at 13:30 ESTEFANIA HARMON NP Feb 15, 2017 12:39
--- NOTE | 2017-02-15 12:50 | PN ---
Date/Time of Note Date/Time of Note DATE: 02/15/17 TIME: 12:45 Assessment/Plan VTE Prophylaxis VTE Prophylaxis Intervention: other Assessment/Plan Problems: (1) Blindness Status: Chronic (2) Diabetes, polyneuropathy Status: Chronic Qualifiers: Diabetes mellitus type: type 2 Qualified Code: E11.42 - Diabetic polyneuropathy associated with type 2 diabetes mellitus (3) Peripheral vascular disease (4) Toe cyanosis Status: Acute Assessment/Plan esrd had hd yesterday mwf schedule cont plan Exam/Review of Systems Vital Signs Vitals Vital Signs Date Time Temp Pulse Resp B/P Pulse Ox O2 Delivery O2 Flow Rate FiO2 02/15/17 11:24 98.4 67 18 137/65 98 02/14/17 16:00 Room Air Intake and Output 02/14/17 02/14/17 02/15/17 15:00 23:00 07:00 Intake Total 690 ml 240 ml 500 ml Output Total 2400 ml Balance -1710 ml 240 ml 500 ml Exam Constitutional: alert, oriented Head: normocephalic Eyes: nl conjunctiva ENMT: nl external ears & nose Neck: supple Respiratory: clear to auscultation Cardiovascular: regular rate and rhythm Gastrointestinal: soft Extremities: other Results Result Diagram: 02/14/17 1738 02/14/17 1735 Results 24 hrs Laboratory Tests Test 02/14/17 17:05 02/14/17 17:35 02/14/17 17:38 02/14/17 19:58 Bedside Glucose 92 96 Sodium Level 130 L Potassium Level 4.5 Chloride Level 93 L Carbon Dioxide Level 34 H Anion Gap 8 Blood Urea Nitrogen 34 H Creatinine 7.27 H Glucose Level 91 Calcium Level 8.1 L Troponin I 0.103 White Blood Count 6.4 Red Blood Count 3.28 L Hemoglobin 9.2 L Hematocrit 28.5 L Mean Corpuscular Volume 86.9 Mean Corpuscular Hemoglobin 28.0 L Mean Corpuscular Hemoglobin Concent 32.3 Red Cell Distribution Width 17.9 H Platelet Count 240 Mean Platelet Volume 9.3 Neutrophils % 73.2 Lymphocytes % 8.2 L Monocytes % 16.2 H Eosinophils % 1.7 Basophils % 0.5 Nucleated Red Blood Cells % 0.0 Neutrophils # 4.7 Lymphocytes # 0.5 L Monocytes # 1.0 H Eosinophils # 0.1 Basophils # 0.0 Nucleated Red Blood Cells # 0.0 Test 02/15/17 05:57 02/15/17 08:12 Troponin I 0.106 Bedside Glucose 87 Medications Medications Current Medications Morphine Sulfate (morphine) 2 mg Q4H PRN IV pain Last administered on 04:27; Admin Dose 2 MG; Start 02/11/17 at 01:30 Ondansetron HCl (Zofran Inj) 4 mg Q6H PRN IV NAUSEA AND/OR VOMITING Last administered on 02/13/17 16:59; Admin Dose 4 MG; Start 02/11/17 at 01:30 Diagnostic Test (Pha) (Accu-Chek) 1 ea 02 XX Last administered on 02/13/17 01 :35; Admin Dose 1 EA; Start 02/11/17 at 02:00 Miscellaneous Information 1 ea NOTE XX ; Start 02/11/17 at 02:00 Glucose (Glutose) 15 gm Q15M PRN PO DECREASED GLUCOSE; Start 02/11/17 at 02:00 Glucose (Glutose) 22.5 gm Q15M PRN PO DECREASED GLUCOSE; Start 02/11/17 at 02: 00 Dextrose (D50w Syringe) 25 ml Q15M PRN IV DECREASED GLUCOSE; Start 02/11/17 at 02:00 Dextrose (D50w Syringe) 50 ml Q15M PRN IV DECREASED GLUCOSE; Start 02/11/17 at 02:00 Glucagon (Glucagen) 1 mg Q15M PRN IM DECREASED GLUCOSE; Start 02/11/17 at 02: 00 Glucose (Glutose) 15 gm Q15M PRN BUCCAL DECREASED GLUCOSE; Start 02/11/17 at 02:00 Amlodipine Besylate (Norvasc) 5 mg BID PO Last administered on 02/15/17 08:43 ; Admin Dose 5 MG; Start 02/11/17 at 21:00 Atorvastatin Calcium (Lipitor) 40 mg HS PO Last administered on 02/14/17 20: 23; Admin Dose 40 MG; Start 02/11/17 at 21:00 Cinacalcet (Sensipar) 30 mg BID PO Last administered on 02/15/17 08:42; Admin Dose 30 MG; Start 02/11/17 at 21:00 Clopidogrel Bisulfate (plaVIX) 75 mg DAILY PO Last administered on 02/15/17 08:42; Admin Dose 75 MG; Start 02/12/17 at 09:00 Losartan Potassium (Cozaar) 25 mg DAILY PO Last administered on 02/15/17 08: 44; Admin Dose 25 MG; Start 02/12/17 at 09:00 Metoprolol Succinate (Toprol Xl) 25 mg DAILY PO Last administered on 08:44; Admin Dose 25 MG; Start 02/12/17 at 09:00 Nifedipine (Procardia Xl) 60 mg DAILY PO Last administered on 02/15/17 08:43 ; Admin Dose 60 MG; Start 02/12/17 at 09:00 Zolpidem Tartrate (Ambien) 5 mg QHS PRN PO INSOMNIA; Start 02/11/17 at 13:00 Acetaminophen/ Hydrocodone Bitart ([place] (5/325)) 1 tab Q4H PRN PO PAIN Last administered on 02/15/17 06:06; Admin Dose 1 TAB; Start 02/11/17 at 17:00 Clonidine 0.1 mg 0.1 mg Q6H PRN PO ELEVATED SYSTOLIC BP Last administered on 14:10; Admin Dose 0.1 MG; Start 02/12/17 at 01:30 Cefepime HCl (Maxipime 1gm/50 ml (Pmx)) 50 ml @ 100 mls/hr DAILY IVPB Last administered on 02/15/17 08:44; Admin Dose 100 MLS/HR; Start 02/12/17 at 14: 00 Epoetin Jorge Luis (Epogen (Esrd)) 4,000 units MoWeFr@17 SC Last administered on 18:34; Admin Dose 4,000 UNITS; Start 02/12/17 at 17:00 Senna (Senokot) 2 tab BID PO Last administered on 02/15/17 08:42; Admin Dose 2 TAB; Start 02/13/17 at 09:00 Metoclopramide HCl (Reglan) 5 mg Q6H PRN IV N/V Last administered on 03:35; Admin Dose 5 MG; Start 02/13/17 at 03:30 Docusate Sodium (Colace) 100 mg BID PRN PO CONSTIPATION; Start 02/13/17 at 13: 30 Bisacodyl (Dulcolax) 10 mg DAILY PRN PO CONSTIPATION; Start 02/13/17 at 13:30 Magnesium Hydroxide (Milk Of Mag) 30 ml BID PRN PO CONSTIPATION Last administered on 02/15/17t 10:01; Admin Dose 30 ML; Start 02/14/17 at 13:30 RENÉE KENNEDY MD Feb 15, 2017 12:50
[2017-02-15] MEDS: ATORVASTATIN 40 MG TAB PO SCH (20:08)
[2017-02-15] MEDS: BISACODYL (EC) 5 MG TAB PO PRN (22:22)
[2017-02-16] VITALS (11 sets, daily range): BP systolic 149–170; BP diastolic 71–80; PULSE 69–83; RESP 16–20
[2017-02-16] MEDS: HYDROCODONE/APAP (5/325) TAB PO PRN ×3 (02:16→10:32)
[2017-02-16] MEDS ORDERED: BISACODYL 10 MG SUPP PR ONE (02:30)
[2017-02-16] MEDS: INSULIN ASPART [NOVOLOG] 3 ML PEN SC SCH ×4 (07:55→19:48)
[2017-02-16] MEDS: CEFEPIME 1GM/50 ML (PMX) 50 ML IVPB SCH (09:17)
[2017-02-16] MEDS: METOPROLOL (XL) 25 MG TAB PO SCH (09:18)
[2017-02-16] MEDS: BISACODYL (EC) 5 MG TAB PO PRN (09:18)
[2017-02-16] MEDS: LOSARTAN 25 MG TAB PO SCH (09:19)
[2017-02-16] MEDS: SENNA TAB PO SCH ×2 (09:19→19:47)
[2017-02-16] MEDS: CINACALCET 30 MG TAB PO SCH ×2 (09:19→19:46)
[2017-02-16] MEDS: CALCIUM ACETATE 667 MG CAP PO SCH ×3 (09:20→17:23)
[2017-02-16] MEDS: SEVELAMER 800 MG TAB PO SCH ×3 (09:20→17:24)
[2017-02-16] MEDS: CLOPIDOGREL 75 MG TAB PO SCH (09:20)
[2017-02-16] MEDS: AMLODIPINE 5 MG TAB PO SCH ×2 (09:20→19:47)
[2017-02-16] MEDS: NIFEdipine (XL) 60 MG TAB PO SCH (09:21)
--- NOTE | 2017-02-16 10:25 | PN ---
Date/Time of Note Date/Time of Note DATE: 02/16/17 TIME: 10:22 Assessment/Plan VTE Prophylaxis VTE Prophylaxis Intervention: other Assessment/Plan Assessment/Plan Assessment/Plan Problems: (1) Blindness Status: Chronic (2) Diabetes, polyneuropathy Status: Chronic Qualifiers: Diabetes mellitus type: type 2 Qualified Code: E11.42 - Diabetic polyneuropathy associated with type 2 diabetes mellitus (3) Peripheral vascular disease (4) Toe cyanosis Status: Acute Assessment/Plan esrd had hd yesterday mwf schedule cont plan [id number] no change cont plan Exam/Review of Systems Vital Signs Vitals Vital Signs Date Time Temp Pulse Resp B/P Pulse Ox O2 Delivery O2 Flow Rate FiO2 02/16/17 08:20 69 02/16/17 07:38 98.1 18 160/72 97 02/14/17 16:00 Room Air Intake and Output 02/15/17 02/15/17 02/16/17 15:00 23:00 07:00 Intake Total 600 ml 120 ml Balance 600 ml 120 ml Exam Constitutional: alert Head: atraumatic, normocephalic Neck: supple Respiratory: clear to auscultation, normal air movement Gastrointestinal: soft Musculoskeletal: nl extremities to inspection Results Result Diagram: 02/14/17 1738 02/14/17 1735 Results 24 hrs Laboratory Tests Test 02/15/17 12:45 02/15/17 18:05 02/15/17 20:04 02/16/17 05:43 Bedside Glucose 99 117 113 Random Vancomycin Level 17.2 Test 02/16/17 08:09 Bedside Glucose 82 Medications Medications Current Medications Morphine Sulfate (morphine) 2 mg Q4H PRN IV pain Last administered on 04:27; Admin Dose 2 MG; Start 02/11/17 at 01:30 Ondansetron HCl (Zofran Inj) 4 mg Q6H PRN IV NAUSEA AND/OR VOMITING Last administered on 02/13/17 16:59; Admin Dose 4 MG; Start 02/11/17 at 01:30 Diagnostic Test (Pha) (Accu-Chek) 1 ea 02 XX Last administered on 02/13/17 01 :35; Admin Dose 1 EA; Start 02/11/17 at 02:00 Miscellaneous Information 1 ea NOTE XX ; Start 02/11/17 at 02:00 Glucose (Glutose) 15 gm Q15M PRN PO DECREASED GLUCOSE; Start 02/11/17 at 02:00 Glucose (Glutose) 22.5 gm Q15M PRN PO DECREASED GLUCOSE; Start 02/11/17 at 02: 00 Dextrose (D50w Syringe) 25 ml Q15M PRN IV DECREASED GLUCOSE; Start 02/11/17 at 02:00 Dextrose (D50w Syringe) 50 ml Q15M PRN IV DECREASED GLUCOSE; Start 02/11/17 at 02:00 Glucagon (Glucagen) 1 mg Q15M PRN IM DECREASED GLUCOSE; Start 02/11/17 at 02: 00 Glucose (Glutose) 15 gm Q15M PRN BUCCAL DECREASED GLUCOSE; Start 02/11/17 at 02:00 Amlodipine Besylate (Norvasc) 5 mg BID PO Last administered on 02/16/17 09:20 ; Admin Dose 5 MG; Start 02/11/17 at 21:00 Atorvastatin Calcium (Lipitor) 40 mg HS PO Last administered on 02/15/17 20: 08; Admin Dose 40 MG; Start 02/11/17 at 21:00 Cinacalcet (Sensipar) 30 mg BID PO Last administered on 02/16/17 09:19; Admin Dose 30 MG; Start 02/11/17 at 21:00 Clopidogrel Bisulfate (plaVIX) 75 mg DAILY PO Last administered on 02/16/17 09:20; Admin Dose 75 MG; Start 02/12/17 at 09:00 Losartan Potassium (Cozaar) 25 mg DAILY PO Last administered on 02/16/17 09: 19; Admin Dose 25 MG; Start 02/12/17 at 09:00 Metoprolol Succinate (Toprol Xl) 25 mg DAILY PO Last administered on 09:18; Admin Dose 25 MG; Start 02/12/17 at 09:00 Nifedipine (Procardia Xl) 60 mg DAILY PO Last administered on 02/16/17 09:21 ; Admin Dose 60 MG; Start 02/12/17 at 09:00 Zolpidem Tartrate (Ambien) 5 mg QHS PRN PO INSOMNIA; Start 02/11/17 at 13:00 Acetaminophen/ Hydrocodone Bitart ([place] (5/325)) 1 tab Q4H PRN PO PAIN Last administered on 02/16/17 06:36; Admin Dose 1 TAB; Start 02/11/17 at 17:00 Clonidine 0.1 mg 0.1 mg Q6H PRN PO ELEVATED SYSTOLIC BP Last administered on 14:10; Admin Dose 0.1 MG; Start 02/12/17 at 01:30 Cefepime HCl (Maxipime 1gm/50 ml (Pmx)) 50 ml @ 100 mls/hr DAILY IVPB Last administered on 02/16/17 09:17; Admin Dose 100 MLS/HR; Start 02/12/17 at 14: 00 Epoetin Jorge Luis (Epogen (Esrd)) 4,000 units MoWeFr@17 SC Last administered on 18:34; Admin Dose 4,000 UNITS; Start 02/12/17 at 17:00 Senna (Senokot) 2 tab BID PO Last administered on 02/16/17 09:19; Admin Dose 2 TAB; Start 02/13/17 at 09:00 Metoclopramide HCl (Reglan) 5 mg Q6H PRN IV N/V Last administered on 03:35; Admin Dose 5 MG; Start 02/13/17 at 03:30 Docusate Sodium (Colace) 100 mg BID PRN PO CONSTIPATION; Start 02/13/17 at 13: 30 Bisacodyl (Dulcolax) 10 mg DAILY PRN PO CONSTIPATION Last administered on 02/16 09:18; Admin Dose 10 MG; Start 02/13/17 at 13:30 Magnesium Hydroxide 30 ml 30 ml BID PRN PO CONSTIPATION Last administered on 21:41; Admin Dose 30 ML; Start 02/14/17 at 13:30 Vancomycin HCl (Vancocin) 250 ml @ 125 mls/hr Q96H IVPB ; Start 02/16/17 at 12 :00 RENÉE KENNEDY MD Feb 16, 2017 10:25
[2017-02-16] MEDS: MAGNESIUM HYDROXIDE 30ML CUP PO PRN (10:35)
[2017-02-16] MEDS ORDERED: VANCOMYCIN 1 GM in NS 250 ML IVPB SCH (12:00)
--- NOTE | 2017-02-16 12:40 | PN ---
Date/Time of Note Date/Time of Note DATE: 02/16/17 TIME: 12:39 Assessment/Plan VTE Prophylaxis VTE Prophylaxis Intervention: other Assessment/Plan Chief Complaint/Hosp Course - Hyperkalemia, patient is in is undergoing hemodialysis today, check BMP tomorrow. - Left foot multiple gangrenous wounds. Dr. Zaragoza is following in vascular surgery consultation, Dr. Jackman is following in podiatry consultation. Dr. Tobias is following in ID consultation. Continue antibiotics per ID , continue current wound care. - End-stage renal disease, hemodialysis dependent. Dr. Newby is following in nephrology consultation. Continue on hemodialysis. - Hypertension. Continue home antihypertensive medication. Monitor blood pressure. - CAD - Permanent Pacemaker - Legally blind status. - Anemia of chronic disease. - Severe peripheral vascular disease. Problems: Subjective 24 Hr Interval Summary Free Text/Dictation Patient complain of pain in leg and constipation Exam/Review of Systems Vital Signs Vitals Vital Signs Date Time Temp Pulse Resp B/P Pulse Ox O2 Delivery O2 Flow Rate FiO2 02/16/17 12:25 83 02/16/17 11:12 98.5 16 155/78 97 02/14/17 16:00 Room Air Intake and Output 02/15/17 02/15/17 02/16/17 15:00 23:00 07:00 Intake Total 600 ml 120 ml Balance 600 ml 120 ml Exam Constitutional: well developed Head: atraumatic, normocephalic Neck: supple Respiratory: clear to auscultation Cardiovascular: regular rate and rhythm Gastrointestinal: non-tender, soft Extremities: normal pulses Results Result Diagram: 02/14/17 1738 02/14/17 1735 Results 24 hrs Laboratory Tests Test 02/15/17 12:45 02/15/17 18:05 02/15/17 20:04 02/16/17 05:43 Bedside Glucose 99 117 113 Random Vancomycin Level 17.2 Test 02/16/17 08:09 Bedside Glucose 82 Medications Medications Current Medications Morphine Sulfate (morphine) 2 mg Q4H PRN IV pain Last administered on 04:27; Admin Dose 2 MG; Start 02/11/17 at 01:30 Ondansetron HCl (Zofran Inj) 4 mg Q6H PRN IV NAUSEA AND/OR VOMITING Last administered on 02/13/17 16:59; Admin Dose 4 MG; Start 02/11/17 at 01:30 Diagnostic Test (Pha) (Accu-Chek) 1 ea 02 XX Last administered on 02/13/17 01 :35; Admin Dose 1 EA; Start 02/11/17 at 02:00 Miscellaneous Information 1 ea NOTE XX ; Start 02/11/17 at 02:00 Glucose (Glutose) 15 gm Q15M PRN PO DECREASED GLUCOSE; Start 02/11/17 at 02:00 Glucose (Glutose) 22.5 gm Q15M PRN PO DECREASED GLUCOSE; Start 02/11/17 at 02: 00 Dextrose (D50w Syringe) 25 ml Q15M PRN IV DECREASED GLUCOSE; Start 02/11/17 at 02:00 Dextrose (D50w Syringe) 50 ml Q15M PRN IV DECREASED GLUCOSE; Start 02/11/17 at 02:00 Glucagon (Glucagen) 1 mg Q15M PRN IM DECREASED GLUCOSE; Start 02/11/17 at 02: 00 Glucose (Glutose) 15 gm Q15M PRN BUCCAL DECREASED GLUCOSE; Start 02/11/17 at 02:00 Amlodipine Besylate (Norvasc) 5 mg BID PO Last administered on 02/16/17 09:20 ; Admin Dose 5 MG; Start 02/11/17 at 21:00 Atorvastatin Calcium (Lipitor) 40 mg HS PO Last administered on 02/15/17 20: 08; Admin Dose 40 MG; Start 02/11/17 at 21:00 Cinacalcet (Sensipar) 30 mg BID PO Last administered on 02/16/17 09:19; Admin Dose 30 MG; Start 02/11/17 at 21:00 Clopidogrel Bisulfate (plaVIX) 75 mg DAILY PO Last administered on 02/16/17 09:20; Admin Dose 75 MG; Start 02/12/17 at 09:00 Losartan Potassium (Cozaar) 25 mg DAILY PO Last administered on 02/16/17 09: 19; Admin Dose 25 MG; Start 02/12/17 at 09:00 Metoprolol Succinate (Toprol Xl) 25 mg DAILY PO Last administered on 09:18; Admin Dose 25 MG; Start 02/12/17 at 09:00 Nifedipine (Procardia Xl) 60 mg DAILY PO Last administered on 02/16/17 09:21 ; Admin Dose 60 MG; Start 02/12/17 at 09:00 Zolpidem Tartrate (Ambien) 5 mg QHS PRN PO INSOMNIA; Start 02/11/17 at 13:00 Acetaminophen/ Hydrocodone Bitart ([place] (5/325)) 1 tab Q4H PRN PO PAIN Last administered on 02/16/17 10:32; Admin Dose 1 TAB; Start 02/11/17 at 17:00 Clonidine 0.1 mg 0.1 mg Q6H PRN PO ELEVATED SYSTOLIC BP Last administered on 14:10; Admin Dose 0.1 MG; Start 02/12/17 at 01:30 Cefepime HCl (Maxipime 1gm/50 ml (Pmx)) 50 ml @ 100 mls/hr DAILY IVPB Last administered on 02/16/17 09:17; Admin Dose 100 MLS/HR; Start 02/12/17 at 14: 00 Epoetin Jorge Luis (Epogen (Esrd)) 4,000 units MoWeFr@17 SC Last administered on 18:34; Admin Dose 4,000 UNITS; Start 02/12/17 at 17:00 Senna (Senokot) 2 tab BID PO Last administered on 02/16/17 09:19; Admin Dose 2 TAB; Start 02/13/17 at 09:00 Metoclopramide HCl (Reglan) 5 mg Q6H PRN IV N/V Last administered on 03:35; Admin Dose 5 MG; Start 02/13/17 at 03:30 Docusate Sodium (Colace) 100 mg BID PRN PO CONSTIPATION; Start 02/13/17 at 13: 30 Bisacodyl (Dulcolax) 10 mg DAILY PRN PO CONSTIPATION Last administered on 02/16 09:18; Admin Dose 10 MG; Start 02/13/17 at 13:30 Magnesium Hydroxide 30 ml 30 ml BID PRN PO CONSTIPATION Last administered on 10:35; Admin Dose 30 ML; Start 02/14/17 at 13:30 Vancomycin HCl (Vancocin) 250 ml @ 125 mls/hr Q96H IVPB ; Start 02/16/17 at 12 :00 FELISA TRIMBLE Feb 16, 2017 12:40
[2017-02-16] MEDS ORDERED: MAGNESIUM CITRATE 300 ML BTL PO ONE (14:00)
--- NOTE | 2017-02-16 14:11 | PN ---
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 It seems the patient has developed worsening of his left lower extremity gangrene despite endovascular intervention. Upon his noninvasive vascular studies he does have infrainguinal disease -Will schedule for angiogram and possible intervention tomorrow -Continue with our wound care per our podiatry colleagues. -End-stage renal disease: It seems the patient has not had any issues regarding his fistula. His fistula ultrasound demonstrated areas of high velocities will plan for eventual fistulogram as outpt -Optimize vascular status (BP meds, diet, nutrition, exercise, sugar control, antiplatelets). -Discussed findings, plan and management with the patient and the family at the bedside and they understand. -Thank you for allowing us to participate in the care of your patient. Please call with any questions. Problems: Subjective 24 Hr Interval Summary NO NEW VASCULAR EVENTS OVERNIGHT Exam/Review of Systems Vital Signs Vitals Vital Signs Date Time Temp Pulse Resp B/P Pulse Ox O2 Delivery O2 Flow Rate FiO2 02/16/17 12:25 83 02/16/17 11:12 98.5 16 155/78 97 02/14/17 16:00 Room Air Intake and Output 02/15/17 02/15/17 02/16/17 15:00 23:00 07:00 Intake Total 600 ml 120 ml Balance 600 ml 120 ml Exam Free Text/Dictation GENERAL: Alert and oriented x3, PULMONARY: Clear to auscultation bilaterally CARDIOVASCULAR: S1, S2 present. ABDOMEN: Soft, nontender, nondistended. Bowel sounds positive. EXTREMITIES: Right lower extremity palpable femoral pulse, nonpalpable pedal pulse. Motor, sensory intact. Cap refill 3 seconds. No ulcers. Left lower extremity palpable femoral pulse, nonpalpable pedal pulse. Motor, sensory intact. Capillary refill 4 seconds. Dependent rubor of the forefoot, gangrene of fifth toe - dry. Minor tissue loss of the second, 3rd and 4th toes. Large heel gangrene Results Result Diagram: 02/14/17 1738 02/14/17 1735 AMOS KEYS MD Feb 16, 2017 14:11
--- NOTE | 2017-02-16 14:30 | CONS ---
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 It seems the patient has developed worsening of his left lower extremity gangrene despite endovascular intervention. Constipation improving. continuing with HD at bedside. No events overnight. The patient is awake, looks comfortable, no fevers. VS: 155/78 P:101 R:20 SO2:97% T:98.5 LABS: Reviewed. non for today INDWELLINGS: Left upper extremity AV fistula. MICROBIOLOGY: Blood cultures had been negative. ANTIMICROBIALS: The patient is on vancomycin and Cefepime PHYSICAL EXAMINATION: GENERAL: Well-developed, chronically ill-appearing, elderly man in no distress. HEENT: Head atraumatic, normocephalic. Sclerae anicteric. Buccal mucosa dry. NECK: Supple. CHEST: Rise symmetrical. Breath sounds diminished to bases. HEART: S1, S2. ABDOMEN: Soft. Bowel tones present. EXTREMITIES: Left lower extremity gangrene. ASSESSMENT: 1. Left lower extremity gangrene. 2. Severe PAD/PVD 3. End-stage renal disease, hemodialysis dependent. 4. Hypertension. 5. Constipation 6. CAD 7. Permanent Pacemaker 8. Legally blind status. 9. Anemia of chronic disease. PLAN: The patient remains stable. Continue abx. Follow podiatry and vascular recommendations. Wound care and possible schedule for angiogram tomorrow. Type of Consultation: ID Referring Provider: POLY THRASHER MD Exam/Review of Systems Vital Signs Vitals Vital Signs Date Time Temp Pulse Resp B/P Pulse Ox O2 Delivery O2 Flow Rate FiO2 02/16/17 12:25 83 02/16/17 11:12 98.5 16 155/78 97 02/14/17 16:00 Room Air Intake and Output 02/15/17 02/15/17 02/16/17 15:00 23:00 07:00 Intake Total 600 ml 120 ml Balance 600 ml 120 ml Results Result Diagram: 02/14/17 1738 02/14/17 1735 Results 24 hrs Laboratory Tests Test 02/15/17 18:05 02/15/17 20:04 02/16/17 05:43 02/16/17 08:09 Bedside Glucose 117 113 82 Random Vancomycin Level 17.2 Test 02/16/17 12:46 Bedside Glucose 128 Medications Medications Current Medications Morphine Sulfate (morphine) 2 mg Q4H PRN IV pain Last administered on 04:27; Admin Dose 2 MG; Start 02/11/17 at 01:30 Ondansetron HCl (Zofran Inj) 4 mg Q6H PRN IV NAUSEA AND/OR VOMITING Last administered on 02/13/17 16:59; Admin Dose 4 MG; Start 02/11/17 at 01:30 Diagnostic Test (Pha) (Accu-Chek) 1 ea 02 XX Last administered on 02/13/17 01 :35; Admin Dose 1 EA; Start 02/11/17 at 02:00 Miscellaneous Information 1 ea NOTE XX ; Start 02/11/17 at 02:00 Glucose (Glutose) 15 gm Q15M PRN PO DECREASED GLUCOSE; Start 02/11/17 at 02:00 Glucose (Glutose) 22.5 gm Q15M PRN PO DECREASED GLUCOSE; Start 02/11/17 at 02: 00 Dextrose (D50w Syringe) 25 ml Q15M PRN IV DECREASED GLUCOSE; Start 02/11/17 at 02:00 Dextrose (D50w Syringe) 50 ml Q15M PRN IV DECREASED GLUCOSE; Start 02/11/17 at 02:00 Glucagon (Glucagen) 1 mg Q15M PRN IM DECREASED GLUCOSE; Start 02/11/17 at 02: 00 Glucose (Glutose) 15 gm Q15M PRN BUCCAL DECREASED GLUCOSE; Start 02/11/17 at 02:00 Amlodipine Besylate (Norvasc) 5 mg BID PO Last administered on 02/16/17 09:20 ; Admin Dose 5 MG; Start 02/11/17 at 21:00 Atorvastatin Calcium (Lipitor) 40 mg HS PO Last administered on 02/15/17 20: 08; Admin Dose 40 MG; Start 02/11/17 at 21:00 Cinacalcet (Sensipar) 30 mg BID PO Last administered on 02/16/17 09:19; Admin Dose 30 MG; Start 02/11/17 at 21:00 Clopidogrel Bisulfate (plaVIX) 75 mg DAILY PO Last administered on 02/16/17 09:20; Admin Dose 75 MG; Start 02/12/17 at 09:00 Losartan Potassium (Cozaar) 25 mg DAILY PO Last administered on 02/16/17 09: 19; Admin Dose 25 MG; Start 02/12/17 at 09:00 Metoprolol Succinate (Toprol Xl) 25 mg DAILY PO Last administered on 09:18; Admin Dose 25 MG; Start 02/12/17 at 09:00 Nifedipine (Procardia Xl) 60 mg DAILY PO Last administered on 02/16/17 09:21 ; Admin Dose 60 MG; Start 02/12/17 at 09:00 Zolpidem Tartrate (Ambien) 5 mg QHS PRN PO INSOMNIA; Start 02/11/17 at 13:00 Acetaminophen/ Hydrocodone Bitart ([place] (5/325)) 1 tab Q4H PRN PO PAIN Last administered on 02/16/17 10:32; Admin Dose 1 TAB; Start 02/11/17 at 17:00 Clonidine 0.1 mg 0.1 mg Q6H PRN PO ELEVATED SYSTOLIC BP Last administered on 14:10; Admin Dose 0.1 MG; Start 02/12/17 at 01:30 Cefepime HCl (Maxipime 1gm/50 ml (Pmx)) 50 ml @ 100 mls/hr DAILY IVPB Last administered on 02/16/17 09:17; Admin Dose 100 MLS/HR; Start 02/12/17 at 14: 00 Epoetin Jorge Luis (Epogen (Esrd)) 4,000 units MoWeFr@17 SC Last administered on 18:34; Admin Dose 4,000 UNITS; Start 02/12/17 at 17:00 Senna (Senokot) 2 tab BID PO Last administered on 02/16/17 09:19; Admin Dose 2 TAB; Start 02/13/17 at 09:00 Metoclopramide HCl (Reglan) 5 mg Q6H PRN IV N/V Last administered on 03:35; Admin Dose 5 MG; Start 02/13/17 at 03:30 Docusate Sodium (Colace) 100 mg BID PRN PO CONSTIPATION; Start 02/13/17 at 13: 30 Bisacodyl (Dulcolax) 10 mg DAILY PRN PO CONSTIPATION Last administered on 02/16 09:18; Admin Dose 10 MG; Start 02/13/17 at 13:30 Magnesium Hydroxide 30 ml 30 ml BID PRN PO CONSTIPATION Last administered on 10:35; Admin Dose 30 ML; Start 02/14/17 at 13:30 Vancomycin HCl (Vancocin) 250 ml @ 125 mls/hr Q96H IVPB Last administered on 02/16/17 12:40; Admin Dose 125 MLS/HR; Start 02/16/17 at 12:00 SKYLER MUSE Feb 16, 2017 14:30
[2017-02-16] MEDS: ATORVASTATIN 40 MG TAB PO SCH (19:47)
[2017-02-17] VITALS (20 sets, daily range): BP systolic 122–154; BP diastolic 58–76; PULSE 69–75; RESP 18–20
[2017-02-17] MEDS: ACCU-CHEK XX SCH (01:50)
[2017-02-17] MEDS: morphine 2 MG INJ IV PRN ×2 (03:43→09:10)
[2017-02-17] MEDS ORDERED: FENTAnyl 50 MCG/ML VIAL ONE (07:01)
[2017-02-17] MEDS ORDERED: LIDOCAINE 1% (MDV) 20 ML INJ ONE (07:01)
[2017-02-17] MEDS ORDERED: MIDAZOLAM 1 MG/ML 2 ML INJ ONE (07:01)
--- NOTE | 2017-02-17 07:09 | HPN ---
Date/Time of Note Date/Time of Note DATE: 02/17/17 TIME: 07:09 Interval H&P Admission Note Pt. seen H&P reviewed: No system changes AMOS KEYS MD Feb 17, 2017 07:09
--- NOTE | 2017-02-17 07:10 | SIPON ---
Date/Time of Note Date/Time of Note DATE: 02/17/17 TIME: 07:09 Operative Report Preoperative Diagnosis LLE GANGRENE Postoperative Diagnosis SAME Operation/Procedure Performed AORTOILIAC ANGIOGRAM LLE ANGIOGRAM Surgeon see signature line patent legal assistant NONE Anesthesia: moderate sedation Estimated blood loss: minimal Transfusion Required none Specimen NONE Grafts/Implants none Complications none AMOS KEYS MD Feb 17, 2017 07:10 AMOS KEYS MD Feb 17, 2017 07:10
[2017-02-17] MEDS ORDERED: HEPARIN 1000 UNITS/ML 10 ML INJ ONE (07:20)
[2017-02-17] MEDS ORDERED: ONDANSETRON 4 MG INJ IV PRN (07:30)
[2017-02-17] MEDS: SEVELAMER 800 MG TAB PO SCH ×3 (07:55→17:31)
[2017-02-17] MEDS: INSULIN ASPART [NOVOLOG] 3 ML PEN SC SCH ×4 (07:55→21:00)
[2017-02-17] MEDS ORDERED: IODIXANOL LOCM 100 ML BTL ONE (08:15)
--- NOTE | 2017-02-17 08:44 | OPR ---
DATE OF OPERATION: 02/17/2017 SURGEON: Jarrett Zaragoza MD. PREOPERATIVE DIAGNOSIS: Left lower extremity gangrene. POSTOPERATIVE DIAGNOSIS: Left lower extremity gangrene. ANESTHESIA: Local with moderate sedation. ESTIMATED BLOOD LOSS: Minimal. COMPLICATIONS: None. HEPARIN: None. CONTRAST: As recorded. ACCESS: Right common femoral artery 5-Persian sheath. CLOSURE: Manual compression and Angio-Seal closure device. SEDATION: Under physician supervision moderate sedation fentanyl (was administered intravenously un omer continuous monitoring by the interventional team and attending physician). Pulse oximeter, hear t rate and blood pressures were continuously monitored by the interventional surgeon. The physician spent time, which was 20 minutes of [id number] sedation time, with the patient. INDICATIONS: This is a 61-year-old gentleman with a history of end-stage renal disease and diabetes who had presented a few months back with left lower extremity diabetic foot infection and gangrene. At that time, patient underwent left lower extremity endovascular intervention with fem-pop angiop lasty and stenting. The patient now presents with left lower extremity gangrene, diabetic foot infe ction again and he developed further gangrene of his plantar aspect. Upon preoperative noninvasive vascular studies which identified the patient having severe infrapopliteal disease and pedal disease and therefore, angiogram was suggested for further evaluation. The patient was discussed. All the risks and benefits of an angiogram, angioplasty and atherectomy and stenting. Risks including but not limited to bleeding, thrombosis, embolization, myocardial infarction, , device malfunction, infection, nephrotoxicity. The patient has agreed to proceed. This is the first diagnostic test i n this clinical setting over the past few months. PROCEDURE: 1. Ultrasound-guided access of the right common femoral artery. 2. Introduction of catheter and aorta. 3. Aortoiliac angiogram. 4. Third order selection of the left common femoral artery. 5. Left lower extremity angiogram. FINDINGS: 1. Bilateral renal arteries are patent, infrarenal aorta is patent, bilateral common iliac, externa l iliac and internal iliac arteries are patent and calcified (there is a pacemaker in the right groi n). 2. Right common femoral artery is patent. 3. Right proximal superficial femoral artery and profunda femoral arteries are patent. 4. Left common femoral artery with mild to moderate disease and calcification. 5. Right profunda femoral artery with mild to moderate disease in the distal aspect and calcified. 6. Left superficial femoral artery is patent with some mild stenosis in the mid aspect and right pr oximal to his fem-pop stent that did not appear to be flow limiting. 7. His distal superficial femoral artery and popliteal artery stent is patent with some mild to mod erate disease. 8. At knee popliteal artery is patent. 9. Left below knee popliteal artery is patent and calcified. 10. Left tibioperoneal trunk with moderate disease. 11. Left peroneal and posterior tibial artery with moderate to severe disease in its proximal aspec t and occludes in the mid aspect of the lower leg. 12. Left anterior tibial artery is patent and calcified throughout its course which feeds into the dorsalis pedis artery. 13. Severe pedal disease as the dorsalis pedis is the main blood supply to the foot and itself is m oderately diseased and calcified. 14. The patient has severe calcification of his lower leg vessels. DESCRIPTION OF PROCEDURE: The patient was brought into the angio suite where he was positioned in s upine position on the fluoroscopic table. Sedation was administered without any complications. The right groin was shaved, prepped and draped in usual standard sterile fashion. Time out and appropr iate site was marked and confirmed. Local anesthesia was then infiltrated in the region of the righ t common femoral artery. The artery was then cannulated with a micro access needle under ultrasound guidance and a guidewire was advanced into the iliac artery under fluoroscopic guidance. The needle was then removed and a m icrocatheter was placed. A Bentson wire was then passed into the infrarenal aorta under fluoroscopi c guidance followed by a 5-Persian sheath over the wire. The sheath was then appropriately flushed w ith heparinized saline solution. Omniflush catheter was then passed into the suprarenal aorta and a ortogram and imaging of the iliac arteries was performed. Findings are noted above. At this point, the Omniflush catheter was then used to select the left common femoral artery in a third order ricci ction. Left lower extremity angiogram was performed. Findings are noted above. At this point, it was identified patient having severe infrapopliteal disease of already occluded tibial and peroneal vessels that are unlikely to be treated with endovascular intervention. Patient does have inline fl ow from the common femoral artery all the way down to dorsalis pedis; however, he has significant pe reinaldo disease in which no further intervention would be needed. At this point, decision was made to r emove all catheters, wires and sheaths. Angio-Seal closure device was deployed in the right common femoral artery, as the patient has a pacemaker in that location and it would be difficult for manual compression. The patient tolerated the procedure well and was taken to postanesthesia care unit in stable condition. PLAN: Essentially, the patient has severe infrapopliteal disease and pedal disease in which would n ot be amenable for any endovascular or open surgery intervention. We will plan to continue with our local wound care. The patient may require a major amputation in the near future. We will plan to discuss the findings with the patient and the family and discuss possibility of limb salvage options . Dictated By: JARRETT SAUCEDO/ZACK Conf#: [id number] DID#: [id number]
[2017-02-17] MEDS: SENNA TAB PO SCH ×2 (09:08→21:00)
[2017-02-17] MEDS: METOPROLOL (XL) 25 MG TAB PO SCH (09:08)
[2017-02-17] MEDS: CINACALCET 30 MG TAB PO SCH ×2 (09:08→21:07)
[2017-02-17] MEDS: CALCIUM ACETATE 667 MG CAP PO SCH ×3 (09:08→17:31)
[2017-02-17] MEDS: CLOPIDOGREL 75 MG TAB PO SCH (09:08)
[2017-02-17] MEDS: AMLODIPINE 5 MG TAB PO SCH ×2 (09:09→21:07)
[2017-02-17] MEDS: CEFEPIME 1GM/50 ML (PMX) 50 ML IVPB SCH (09:09)
[2017-02-17] MEDS: LOSARTAN 25 MG TAB PO SCH (09:09)
[2017-02-17] MEDS: MAGNESIUM HYDROXIDE 30ML CUP PO PRN (09:15)
[2017-02-17] MEDS: HYDROCODONE/APAP (5/325) TAB PO PRN ×2 (09:15→15:02)
[2017-02-17] MEDS: NIFEdipine (XL) 60 MG TAB PO SCH (09:15)
[2017-02-17 09:44] LABS: ABNORMAL IP MESSAGE 1; BASOPHIL # 0.1 10^3/ul (0.0-0.1); BASOPHILS % 0.6 % (0.0-2.0); EOSINOPHILS # 0.1 10^3/ul (0.0-0.5); EOSINOPHILS % 0.6 % (0.0-7.0); HEMATOCRIT 29.7 % (42.0-52.0); HEMOGLOBIN 9.4 g/dl (14.0-18.0); LYMPHOCYTES # 0.5 10^3/ul (0.8-2.9); LYMPHOCYTES % 4.9 % (15.0-51.0); MEAN CORPUSCULAR HEMOGLOBIN 27.6 pg (29.0-33.0); MEAN CORPUSCULAR HGB CONC 31.6 g/dl (32.0-37.0); MEAN CORPUSCULAR VOLUME 87.1 fl (82.0-101.0); MEAN PLATELET VOLUME 9.8 fl (7.4-10.4); MONOCYTES % 9.9 % (0.0-11.0); NEUTROPHILS % 83.8 % (39.0-77.0); PLATELET COUNT 231 10^3/UL (140-415); POSITIVE DIFF @See below; RED BLOOD COUNT 3.41 10^6/ul (4.70-6.10); RED CELL DISTRIBUTION WIDTH 17.7 % (11.5-14.5); WHITE BLOOD COUNT 9.6 10^3/ul (4.8-10.8)
[2017-02-17 10:30] LABS: CALCIUM 7.8 mg/dl (8.4-10.2); CREATININE 10.77 mg/dl (0.61-1.24)
--- NOTE | 2017-02-17 13:30 | CONS ---
Date/Time of Note Date/Time of Note DATE: 02/17/17 TIME: 13:28 Consult Date/Type/Reason Admit Date/Time Feb 10, 2017 at 23:00 Initial Consult Date 02/11/17 Type of Consultation: ID Ordering Provider: POLY THRASHER MD Objective Vital Signs Date Time Temp Pulse Resp B/P Pulse Ox O2 Delivery O2 Flow Rate FiO2 02/17/17 12:19 69 02/17/17 11:26 98.5 19 135/63 94 02/14/17 16:00 Room Air Intake and Output 02/16/17 02/16/17 02/17/17 15:00 23:00 07:00 Intake Total 300 ml 840 ml 120 ml Balance 300 ml 840 ml 120 ml Results/Medications Result Diagram: 02/17/17 0939 02/17/17 0939 Results 24 hrs Laboratory Tests Test 02/16/17 17:25 02/16/17 19:48 02/17/17 08:56 02/17/17 09:39 Bedside Glucose 144 135 92 White Blood Count 9.6 # Red Blood Count 3.41 L Hemoglobin 9.4 L Hematocrit 29.7 L Mean Corpuscular Volume 87.1 Mean Corpuscular Hemoglobin 27.6 L Mean Corpuscular Hemoglobin Concent 31.6 L Red Cell Distribution Width 17.7 H Platelet Count 231 Mean Platelet Volume 9.8 Neutrophils % 83.8 H Lymphocytes % 4.9 L Monocytes % 9.9 Eosinophils % 0.6 Basophils % 0.6 Nucleated Red Blood Cells % 0.0 Neutrophils # 8.0 H Lymphocytes # 0.5 L Monocytes # 1.0 H Eosinophils # 0.1 Basophils # 0.1 Nucleated Red Blood Cells # 0.0 Sodium Level 137 Potassium Level 6.0 H Chloride Level 94 L Carbon Dioxide Level 28 Anion Gap 21 H Blood Urea Nitrogen 67 H Creatinine 10.77 H Glucose Level 85 Calcium Level 7.8 L Test 02/17/17 12:07 Bedside Glucose 111 Medications Current Medications Morphine Sulfate (morphine) 2 mg Q4H PRN IV pain Last administered on 03:43; Admin Dose 2 MG; Start 02/11/17 at 01:30 Ondansetron HCl (Zofran Inj) 4 mg Q6H PRN IV NAUSEA AND/OR VOMITING Last administered on 10/12/17at 16:59; Admin Dose 4 MG; Start 02/11/17 at 01:30 Diagnostic Test (Pha) (Accu-Chek) 1 ea 02 XX Last administered on 02/13/17 01 :35; Admin Dose 1 EA; Start 02/11/17 at 02:00 Miscellaneous Information 1 ea NOTE XX ; Start 02/11/17 at 02:00 Glucose (Glutose) 15 gm Q15M PRN PO DECREASED GLUCOSE; Start 02/11/17 at 02:00 Glucose (Glutose) 22.5 gm Q15M PRN PO DECREASED GLUCOSE; Start 02/11/17 at 02: 00 Dextrose (D50w Syringe) 25 ml Q15M PRN IV DECREASED GLUCOSE; Start 02/11/17 at 02:00 Dextrose (D50w Syringe) 50 ml Q15M PRN IV DECREASED GLUCOSE; Start 02/11/17 at 02:00 Glucagon (Glucagen) 1 mg Q15M PRN IM DECREASED GLUCOSE; Start 02/11/17 at 02: 00 Glucose (Glutose) 15 gm Q15M PRN BUCCAL DECREASED GLUCOSE; Start 02/11/17 at 02:00 Amlodipine Besylate (Norvasc) 5 mg BID PO Last administered on 02/17/17 09:09 ; Admin Dose 5 MG; Start 02/11/17 at 21:00 Atorvastatin Calcium (Lipitor) 40 mg HS PO Last administered on 02/16/17 19: 47; Admin Dose 40 MG; Start 02/11/17 at 21:00 Cinacalcet (Sensipar) 30 mg BID PO Last administered on 02/17/17 09:08; Admin Dose 30 MG; Start 02/11/17 at 21:00 Clopidogrel Bisulfate (plaVIX) 75 mg DAILY PO Last administered on 02/17/17 09:08; Admin Dose 75 MG; Start 02/12/17 at 09:00 Losartan Potassium (Cozaar) 25 mg DAILY PO Last administered on 02/17/17 09: 09; Admin Dose 25 MG; Start 02/12/17 at 09:00 Metoprolol Succinate (Toprol Xl) 25 mg DAILY PO Last administered on 09:08; Admin Dose 25 MG; Start 02/12/17 at 09:00 Nifedipine (Procardia Xl) 60 mg DAILY PO Last administered on 02/17/17 09:15 ; Admin Dose 60 MG; Start 02/12/17 at 09:00 Zolpidem Tartrate (Ambien) 5 mg QHS PRN PO INSOMNIA; Start 02/11/17 at 13:00 Acetaminophen/ Hydrocodone Bitart ([place] (5/325)) 1 tab Q4H PRN PO PAIN Last administered on 02/17/17 09:15; Admin Dose 1 TAB; Start 02/11/17 at 17:00 Clonidine 0.1 mg 0.1 mg Q6H PRN PO ELEVATED SYSTOLIC BP Last administered on 19:47; Admin Dose 0.1 MG; Start 02/12/17 at 01:30 Cefepime HCl (Maxipime 1gm/50 ml (Pmx)) 50 ml @ 100 mls/hr DAILY IVPB Last administered on 02/17/17 09:09; Admin Dose 100 MLS/HR; Start 02/12/17 at 14: 00 Epoetin Jorge Luis (Epogen (Esrd)) 4,000 units MoWeFr@17 SC Last administered on 18:34; Admin Dose 4,000 UNITS; Start 02/12/17 at 17:00 Senna (Senokot) 2 tab BID PO Last administered on 02/17/17 09:08; Admin Dose 2 TAB; Start 02/13/17 at 09:00 Metoclopramide HCl (Reglan) 5 mg Q6H PRN IV N/V Last administered on 03:35; Admin Dose 5 MG; Start 02/13/17 at 03:30 Docusate Sodium (Colace) 100 mg BID PRN PO CONSTIPATION; Start 02/13/17 at 13: 30 Bisacodyl (Dulcolax) 10 mg DAILY PRN PO CONSTIPATION Last administered on 02/16 09:18; Admin Dose 10 MG; Start 02/13/17 at 13:30 Magnesium Hydroxide 30 ml 30 ml BID PRN PO CONSTIPATION Last administered on 09:15; Admin Dose 30 ML; Start 02/14/17 at 13:30 Vancomycin HCl (Vancocin) 250 ml @ 125 mls/hr Q96H IVPB Last administered on 02/16/17 12:40; Admin Dose 125 MLS/HR; Start 02/16/17 at 12:00 Ondansetron HCl (Zofran Inj) 4 mg Q4H PRN IV NAUSEA AND/OR VOMITING; Start at 07:30 Sodium Biphosphate/ Sodium Phosphate (Fleet Enema) 133 ml ONCE ONCE NC ; Start 02/17/17 at 15:00; Stop 02/17/17 at 15:01 Assessment/Plan Chief Complaint/Hosp Course SUBJECTIVE: No events overnight, no fevers, looks comfortable. INDWELLINGS: Left upper extremity AV fistula. MICROBIOLOGY: Blood cultures had been negative. ANTIMICROBIALS: The patient is on vancomycin and Cefepime PHYSICAL EXAMINATION: GENERAL: Well-developed, chronically ill-appearing, elderly man in no distress. HEENT: Head atraumatic, normocephalic. Sclerae anicteric. Buccal mucosa dry. NECK: Supple. CHEST: Rise symmetrical. Breath sounds diminished to bases. HEART: S1, S2. ABDOMEN: Soft. Bowel tones present. EXTREMITIES: Left lower extremity gangrene. ASSESSMENT: 1. Left lower extremity dry gangrene. 2. Peripheral vascular disease. 3. End-stage renal disease, hemodialysis dependent. 4. Hypertension. 5. Constipation PLAN: The patient remains stable. Will change abx to oral Doxycycline. Continue HD per renal. Follow podiatry and vascular recommendations. Problems: SHITAL MCKEON NP Feb 17, 2017 13:30
[2017-02-17] MEDS ORDERED: NA PHOSPHATE/BIPHOS 133 ML ENEMA PR ONE (15:00)
[2017-02-17] MEDS: BISACODYL (EC) 5 MG TAB PO PRN (15:02)
[2017-02-17] MEDS: EPOETIN 4000 UNITS/1 ML INJ (ESRD) SC SCH (17:32)
--- NOTE | 2017-02-17 17:56 | PN ---
Date/Time of Note Date/Time of Note DATE: 02/17/17 TIME: 17:52 Assessment/Plan VTE Prophylaxis VTE Prophylaxis Intervention: heparin Lines/Catheters IV C[facility]ter Type (from [facility]): Saline Lock Assessment/Plan Chief Complaint/Hosp Course Patient complains of hemorrhoid pain, constipation resolved. Patient is status post hemodialysis today. Patient is status post aortoiliac angiogram today in the morning, Assessment/Plan - Hyperkalemia, s/p HD - Left foot multiple gangrenous wounds. Dr. Zaragoza is following in vascular surgery consultation, Dr. Jackman is following in podiatry consultation. Dr. Tobias is following in ID consultation. Continue antibiotics per ID , continue current wound care. - End-stage renal disease, hemodialysis dependent. Dr. Newby is following in nephrology consultation. Continue on hemodialysis. - Hypertension. Continue home antihypertensive medication. Monitor blood pressure. - CAD - Permanent Pacemaker - Legally blind status. - Anemia of chronic disease. - Severe peripheral vascular disease. Further recommendations based on clinical course. Plan of care discussed with Dr. French. Problems: Exam/Review of Systems Vital Signs Vitals Vital Signs Date Time Temp Pulse Resp B/P Pulse Ox O2 Delivery O2 Flow Rate FiO2 02/17/17 16:34 75 02/17/17 16:11 98.0 19 132/58 95 02/14/17 16:00 Room Air Intake and Output 02/16/17 02/16/17 02/17/17 15:00 23:00 07:00 Intake Total 300 ml 840 ml 120 ml Balance 300 ml 840 ml 120 ml Exam Constitutional: alert, oriented Head: normocephalic Neck: supple Respiratory: normal air movement Cardiovascular: nl pulses, other (Permanent pacemaker right groin) Gastrointestinal: non-tender, soft Extremities: normal pulses Results Result Diagram: 02/17/17 0939 02/17/17 0939 Results 24 hrs Laboratory Tests Test 02/16/17 19:48 02/17/17 08:56 02/17/17 09:39 02/17/17 12:07 Bedside Glucose 135 92 111 White Blood Count 9.6 # Red Blood Count 3.41 L Hemoglobin 9.4 L Hematocrit 29.7 L Mean Corpuscular Volume 87.1 Mean Corpuscular Hemoglobin 27.6 L Mean Corpuscular Hemoglobin Concent 31.6 L Red Cell Distribution Width 17.7 H Platelet Count 231 Mean Platelet Volume 9.8 Neutrophils % 83.8 H Lymphocytes % 4.9 L Monocytes % 9.9 Eosinophils % 0.6 Basophils % 0.6 Nucleated Red Blood Cells % 0.0 Neutrophils # 8.0 H Lymphocytes # 0.5 L Monocytes # 1.0 H Eosinophils # 0.1 Basophils # 0.1 Nucleated Red Blood Cells # 0.0 Sodium Level 137 Potassium Level 6.0 H Chloride Level 94 L Carbon Dioxide Level 28 Anion Gap 21 H Blood Urea Nitrogen 67 H Creatinine 10.77 H Glucose Level 85 Calcium Level 7.8 L Test 02/17/17 17:29 Bedside Glucose 111 Medications Medications Current Medications Morphine Sulfate (morphine) 2 mg Q4H PRN IV pain Last administered on 03:43; Admin Dose 2 MG; Start 02/11/17 at 01:30 Ondansetron HCl (Zofran Inj) 4 mg Q6H PRN IV NAUSEA AND/OR VOMITING Last administered on 02/13/17 16:59; Admin Dose 4 MG; Start 02/11/17 at 01:30 Diagnostic Test (Pha) (Accu-Chek) 1 ea 02 XX Last administered on 02/13/17 01 :35; Admin Dose 1 EA; Start 02/11/17 at 02:00 Miscellaneous Information 1 ea NOTE XX ; Start 02/11/17 at 02:00 Glucose (Glutose) 15 gm Q15M PRN PO DECREASED GLUCOSE; Start 02/11/17 at 02:00 Glucose (Glutose) 22.5 gm Q15M PRN PO DECREASED GLUCOSE; Start 02/11/17 at 02: 00 Dextrose (D50w Syringe) 25 ml Q15M PRN IV DECREASED GLUCOSE; Start 02/11/17 at 02:00 Dextrose (D50w Syringe) 50 ml Q15M PRN IV DECREASED GLUCOSE; Start 02/11/17 at 02:00 Glucagon (Glucagen) 1 mg Q15M PRN IM DECREASED GLUCOSE; Start 02/11/17 at 02: 00 Glucose (Glutose) 15 gm Q15M PRN BUCCAL DECREASED GLUCOSE; Start 02/11/17 at 02:00 Amlodipine Besylate (Norvasc) 5 mg BID PO Last administered on 02/17/17 09:09 ; Admin Dose 5 MG; Start 02/11/17 at 21:00 Atorvastatin Calcium (Lipitor) 40 mg HS PO Last administered on 02/16/17 19: 47; Admin Dose 40 MG; Start 02/11/17 at 21:00 Cinacalcet (Sensipar) 30 mg BID PO Last administered on 02/17/17 09:08; Admin Dose 30 MG; Start 02/11/17 at 21:00 Clopidogrel Bisulfate (plaVIX) 75 mg DAILY PO Last administered on 02/17/17 09:08; Admin Dose 75 MG; Start 02/12/17 at 09:00 Losartan Potassium (Cozaar) 25 mg DAILY PO Last administered on 02/17/17 09: 09; Admin Dose 25 MG; Start 02/12/17 at 09:00 Metoprolol Succinate (Toprol Xl) 25 mg DAILY PO Last administered on 09:08; Admin Dose 25 MG; Start 02/12/17 at 09:00 Nifedipine (Procardia Xl) 60 mg DAILY PO Last administered on 02/17/17 09:15 ; Admin Dose 60 MG; Start 02/12/17 at 09:00 Zolpidem Tartrate (Ambien) 5 mg QHS PRN PO INSOMNIA; Start 02/11/17 at 13:00 Acetaminophen/ Hydrocodone Bitart ([place] (5/325)) 1 tab Q4H PRN PO PAIN Last administered on 02/17/17 15:02; Admin Dose 1 TAB; Start 02/11/17 at 17:00 Clonidine (Catapres) 0.1 mg Q6H PRN PO ELEVATED SYSTOLIC BP Last administered on 02/16/17 19:47; Admin Dose 0.1 MG; Start 02/12/17 at 01:30 Epoetin Jorge Luis (Epogen (Esrd)) 4,000 units MoWeFr@17 SC Last administered on 17:32; Admin Dose 4,000 UNITS; Start 02/12/17 at 17:00 Senna (Senokot) 2 tab BID PO Last administered on 02/17/17 09:08; Admin Dose 2 TAB; Start 02/13/17 at 09:00 Metoclopramide HCl (Reglan) 5 mg Q6H PRN IV N/V Last administered on 03:35; Admin Dose 5 MG; Start 02/13/17 at 03:30 Docusate Sodium (Colace) 100 mg BID PRN PO CONSTIPATION Last administered on 15:02; Admin Dose 100 MG; Start 02/13/17 at 13:30 Bisacodyl (Dulcolax) 10 mg DAILY PRN PO CONSTIPATION Last administered on 02/17 15:02; Admin Dose 10 MG; Start 02/13/17 at 13:30 Magnesium Hydroxide (Milk Of Mag) 30 ml BID PRN PO CONSTIPATION Last administered on 02/17/17 09:15; Admin Dose 30 ML; Start 02/14/17 at 13:30 Ondansetron HCl (Zofran Inj) 4 mg Q4H PRN IV NAUSEA AND/OR VOMITING; Start at 07:30 Doxycycline Hyclate (Vibramycin) 100 mg BID PO ; Start 02/17/17 at 21:00 VIV KING Feb 17, 2017 17:56
[2017-02-17] MEDS ORDERED: HYDROCORTISONE 25 MG SUPP PR PRN (18:00)
--- NOTE | 2017-02-17 18:27 | PN ---
Date/Time of Note Date/Time of Note DATE: 02/17/17 TIME: 18:26 Assessment/Plan Lines/Catheters IV [facility] Saline Lock Assessment/Plan Problems: (1) Toe gangrene (2) Peripheral vascular disease (3) Diabetes, polyneuropathy Status: Chronic Qualifiers: Diabetes mellitus type: type 2 Qualified Code: E11.42 - Diabetic polyneuropathy associated with type 2 diabetes mellitus (4) Hypertension Status: Acute Assessment/Plan Patient is under care of vascular surgery. Pending vascular intervention. Betadine to be applied to the left foot daily. Continue to monitor left foot. No surgery recommended at this time. Patient will be monitored in-house. Subjective 24 Hr Interval Summary Patient was seen at bedside. Patient is in no acute distress. Patient reports no new adverse events. Patient denies fever, chills, nausea or vomiting. Patient denies pain. Patient denies recent trauma. Patient reports bandages are being changed as directed. Patient does not report any new problems. Constitutional: no complaints Pain Control: well controlled Exam/Review of Systems Vital Signs Vitals Vital Signs Date Time Temp Pulse Resp B/P Pulse Ox O2 Delivery O2 Flow Rate FiO2 02/17/17 20:33 98.0 73 18 144/65 95 02/14/17 16:00 Room Air Intake and Output 02/16/17 02/16/17 02/17/17 15:00 23:00 07:00 Intake Total 300 ml 840 ml 120 ml Balance 300 ml 840 ml 120 ml Exam Free Text/Dictation Patient continues to have gangrenous changes to the left foot in multiple areas including the heel and the toes. Nonpalpable pedal pulses continue. No active open wound noted on the right foot. There is no drainage of pus and no bleeding. Labs reviewed. Results Result Diagram: 02/17/17 0939 02/17/17 0939 MARKIE ORO DPM Feb 17, 2017 18:27
--- NOTE | 2017-02-17 19:53 | CONS ---
Date/Time of Note Date/Time of Note DATE: 02/17/17 TIME: 19:53 Consultation Date/Type/Reason Admit Date/Time Feb 10, 2017 at 23:00 Initial Consult Date 02/11/17 Type of Consultation: Renal Referring Provider: POLY THRASHER MD Exam/Review of Systems Vital Signs Vitals Vital Signs Date Time Temp Pulse Resp B/P Pulse Ox O2 Delivery O2 Flow Rate FiO2 02/17/17 16:34 75 02/17/17 16:11 98.0 19 132/58 95 02/14/17 16:00 Room Air Intake and Output 02/16/17 02/16/17 02/17/17 15:00 23:00 07:00 Intake Total 300 ml 840 ml 120 ml Balance 300 ml 840 ml 120 ml Results Result Diagram: 02/17/17 0939 02/17/17 0939 Results 24 hrs Laboratory Tests Test 02/17/17 08:56 02/17/17 09:39 02/17/17 12:07 02/17/17 17:29 Bedside Glucose 92 111 111 White Blood Count 9.6 # Red Blood Count 3.41 L Hemoglobin 9.4 L Hematocrit 29.7 L Mean Corpuscular Volume 87.1 Mean Corpuscular Hemoglobin 27.6 L Mean Corpuscular Hemoglobin Concent 31.6 L Red Cell Distribution Width 17.7 H Platelet Count 231 Mean Platelet Volume 9.8 Neutrophils % 83.8 H Lymphocytes % 4.9 L Monocytes % 9.9 Eosinophils % 0.6 Basophils % 0.6 Nucleated Red Blood Cells % 0.0 Neutrophils # 8.0 H Lymphocytes # 0.5 L Monocytes # 1.0 H Eosinophils # 0.1 Basophils # 0.1 Nucleated Red Blood Cells # 0.0 Sodium Level 137 Potassium Level 6.0 H Chloride Level 94 L Carbon Dioxide Level 28 Anion Gap 21 H Blood Urea Nitrogen 67 H Creatinine 10.77 H Glucose Level 85 Calcium Level 7.8 L Medications Medications Current Medications Morphine Sulfate (morphine) 2 mg Q4H PRN IV pain Last administered on 03:43; Admin Dose 2 MG; Start 02/11/17 at 01:30 Ondansetron HCl (Zofran Inj) 4 mg Q6H PRN IV NAUSEA AND/OR VOMITING Last administered on 02/13/17 16:59; Admin Dose 4 MG; Start 02/11/17 at 01:30 Diagnostic Test (Pha) (Accu-Chek) 1 ea 02 XX Last administered on 02/13/17 01 :35; Admin Dose 1 EA; Start 02/11/17 at 02:00 Miscellaneous Information 1 ea NOTE XX ; Start 02/11/17 at 02:00 Glucose (Glutose) 15 gm Q15M PRN PO DECREASED GLUCOSE; Start 02/11/17 at 02:00 Glucose (Glutose) 22.5 gm Q15M PRN PO DECREASED GLUCOSE; Start 02/11/17 at 02: 00 Dextrose (D50w Syringe) 25 ml Q15M PRN IV DECREASED GLUCOSE; Start 02/11/17 at 02:00 Dextrose (D50w Syringe) 50 ml Q15M PRN IV DECREASED GLUCOSE; Start 02/11/17 at 02:00 Glucagon (Glucagen) 1 mg Q15M PRN IM DECREASED GLUCOSE; Start 02/11/17 at 02: 00 Glucose (Glutose) 15 gm Q15M PRN BUCCAL DECREASED GLUCOSE; Start 02/11/17 at 02:00 Amlodipine Besylate (Norvasc) 5 mg BID PO Last administered on 02/17/17 09:09 ; Admin Dose 5 MG; Start 02/11/17 at 21:00 Atorvastatin Calcium (Lipitor) 40 mg HS PO Last administered on 02/16/17 19: 47; Admin Dose 40 MG; Start 02/11/17 at 21:00 Cinacalcet (Sensipar) 30 mg BID PO Last administered on 02/17/17 09:08; Admin Dose 30 MG; Start 02/11/17 at 21:00 Clopidogrel Bisulfate (plaVIX) 75 mg DAILY PO Last administered on 02/17/17 09:08; Admin Dose 75 MG; Start 02/12/17 at 09:00 Losartan Potassium (Cozaar) 25 mg DAILY PO Last administered on 02/17/17 09: 09; Admin Dose 25 MG; Start 02/12/17 at 09:00 Metoprolol Succinate (Toprol Xl) 25 mg DAILY PO Last administered on 09:08; Admin Dose 25 MG; Start 02/12/17 at 09:00 Nifedipine (Procardia Xl) 60 mg DAILY PO Last administered on 02/17/17 09:15 ; Admin Dose 60 MG; Start 02/12/17 at 09:00 Zolpidem Tartrate (Ambien) 5 mg QHS PRN PO INSOMNIA; Start 02/11/17 at 13:00 Acetaminophen/ Hydrocodone Bitart ([place] (5/325)) 1 tab Q4H PRN PO PAIN Last administered on 02/17/17 15:02; Admin Dose 1 TAB; Start 02/11/17 at 17:00 Clonidine (Catapres) 0.1 mg Q6H PRN PO ELEVATED SYSTOLIC BP Last administered on 02/16/17 19:47; Admin Dose 0.1 MG; Start 02/12/17 at 01:30 Epoetin Jorge Luis (Epogen (Esrd)) 4,000 units MoWeFr@17 SC Last administered on 17:32; Admin Dose 4,000 UNITS; Start 02/12/17 at 17:00 Senna (Senokot) 2 tab BID PO Last administered on 02/17/17 09:08; Admin Dose 2 TAB; Start 02/13/17 at 09:00 Metoclopramide HCl (Reglan) 5 mg Q6H PRN IV N/V Last administered on 03:35; Admin Dose 5 MG; Start 02/13/17 at 03:30 Docusate Sodium (Colace) 100 mg BID PRN PO CONSTIPATION Last administered on 15:02; Admin Dose 100 MG; Start 02/13/17 at 13:30 Bisacodyl (Dulcolax) 10 mg DAILY PRN PO CONSTIPATION Last administered on 02/17 15:02; Admin Dose 10 MG; Start 02/13/17 at 13:30 Magnesium Hydroxide (Milk Of Mag) 30 ml BID PRN PO CONSTIPATION Last administered on 02/17/17 09:15; Admin Dose 30 ML; Start 02/14/17 at 13:30 Ondansetron HCl (Zofran Inj) 4 mg Q4H PRN IV NAUSEA AND/OR VOMITING; Start at 07:30 Doxycycline Hyclate (Vibramycin) 100 mg BID PO ; Start 02/17/17 at 21:00 Hydrocortisone (Anusol-Hc Supp) 25 mg TID PRN [place] HEMORROID PAIN/ITCHING; Start 02/17/17 at 18:00 POULOSE,PIPER MD Feb 17, 2017 19:53
[2017-02-17] MEDS: ATORVASTATIN 40 MG TAB PO SCH (21:06)
[2017-02-17] MEDS: DOXYCYCLINE 100 MG TAB PO SCH (21:07)
[2017-02-18] VITALS (13 sets, daily range): BP systolic 111–152; BP diastolic 57–68; PULSE 69–72; RESP 17–20
[2017-02-18] MEDS: ACCU-CHEK XX SCH ×2 (02:00→21:21)
[2017-02-18 06:33] LABS: ABNORMAL IP MESSAGE 1; BASOPHIL # 0.1 10^3/ul (0.0-0.1); BASOPHILS % 0.6 % (0.0-2.0); EOSINOPHILS # 0.1 10^3/ul (0.0-0.5); EOSINOPHILS % 0.7 % (0.0-7.0); HEMATOCRIT 27.4 % (42.0-52.0); HEMOGLOBIN 8.7 g/dl (14.0-18.0); LYMPHOCYTES # 0.5 10^3/ul (0.8-2.9); LYMPHOCYTES % 6.5 % (15.0-51.0); MEAN CORPUSCULAR HEMOGLOBIN 27.4 pg (29.0-33.0); MEAN CORPUSCULAR HGB CONC 31.8 g/dl (32.0-37.0); MEAN CORPUSCULAR VOLUME 86.2 fl (82.0-101.0); MEAN PLATELET VOLUME 9.9 fl (7.4-10.4); MONOCYTES % 11.6 % (0.0-11.0); NEUTROPHIL # 6.6 10^3/ul (1.6-7.5); NEUTROPHILS % 80.2 % (39.0-77.0); PLATELET COUNT 250 10^3/UL (140-415); POSITIVE DIFF @See below; RED BLOOD COUNT 3.18 10^6/ul (4.70-6.10); RED CELL DISTRIBUTION WIDTH 17.3 % (11.5-14.5); WHITE BLOOD COUNT 8.2 10^3/ul (4.8-10.8)
[2017-02-18 07:12] LABS: CALCIUM 7.8 mg/dl (8.4-10.2); CREATININE 8.7 mg/dl (0.61-1.24); POTASSIUM 4.8 mmol/L (3.5-5.1)
[2017-02-18] MEDS: INSULIN ASPART [NOVOLOG] 3 ML PEN SC SCH ×4 (07:55→21:00)
[2017-02-18] MEDS: NIFEdipine (XL) 60 MG TAB PO SCH (08:19)
[2017-02-18] MEDS: DOXYCYCLINE 100 MG TAB PO SCH ×2 (08:20→21:16)
[2017-02-18] MEDS: CALCIUM ACETATE 667 MG CAP PO SCH ×3 (08:20→17:30)
[2017-02-18] MEDS: MAGNESIUM HYDROXIDE 30ML CUP PO PRN (08:20)
[2017-02-18] MEDS: LOSARTAN 25 MG TAB PO SCH (08:20)
[2017-02-18] MEDS: SEVELAMER 800 MG TAB PO SCH ×3 (08:20→17:30)
[2017-02-18] MEDS: CINACALCET 30 MG TAB PO SCH ×2 (08:20→21:16)
[2017-02-18] MEDS: AMLODIPINE 5 MG TAB PO SCH ×2 (08:20→21:16)
[2017-02-18] MEDS: METOPROLOL (XL) 25 MG TAB PO SCH (08:21)
[2017-02-18] MEDS: CLOPIDOGREL 75 MG TAB PO SCH (08:21)
[2017-02-18] MEDS: SENNA TAB PO SCH ×2 (08:25→21:00)
--- NOTE | 2017-02-18 14:32 | CONS ---
Date/Time of Note Date/Time of Note DATE: 02/18/17 TIME: 14:31 Consult Date/Type/Reason Admit Date/Time Feb 10, 2017 at 23:00 Initial Consult Date 02/11/17 Type of Consultation: ID Ordering Provider: POLY THRASHER MD Objective Vital Signs Date Time Temp Pulse Resp B/P Pulse Ox O2 Delivery O2 Flow Rate FiO2 02/18/17 12:36 69 02/18/17 11:25 98.2 18 146/67 97 02/14/17 16:00 Room Air Intake and Output 02/17/17 02/17/17 02/18/17 15:00 23:00 07:00 Intake Total 550 ml 500 ml 550 ml Output Total 3000 ml Balance -2450 ml 500 ml 550 ml Results/Medications Result Diagram: 02/18/17 0605 02/18/17 0605 Results 24 hrs Laboratory Tests Test 02/17/17 17:29 02/17/17 21:06 02/18/17 06:05 02/18/17 08:18 Bedside Glucose 111 107 88 White Blood Count 8.2 Red Blood Count 3.18 L Hemoglobin 8.7 L Hematocrit 27.4 L Mean Corpuscular Volume 86.2 Mean Corpuscular Hemoglobin 27.4 L Mean Corpuscular Hemoglobin Concent 31.8 L Red Cell Distribution Width 17.3 H Platelet Count 250 Mean Platelet Volume 9.9 Neutrophils % 80.2 H Lymphocytes % 6.5 L Monocytes % 11.6 H Eosinophils % 0.7 Basophils % 0.6 Nucleated Red Blood Cells % 0.0 Neutrophils # 6.6 Lymphocytes # 0.5 L Monocytes # 1.0 H Eosinophils # 0.1 Basophils # 0.1 Nucleated Red Blood Cells # 0.0 Sodium Level 138 Potassium Level 4.8 Chloride Level 94 L Carbon Dioxide Level 31 Anion Gap 18 H Blood Urea Nitrogen 43 #H Creatinine 8.70 #H Glucose Level 78 Calcium Level 7.8 L Test 02/18/17 12:04 Bedside Glucose 127 Medications Current Medications Morphine Sulfate (morphine) 2 mg Q4H PRN IV pain Last administered on 03:43; Admin Dose 2 MG; Start 02/11/17 at 01:30 Ondansetron HCl (Zofran Inj) 4 mg Q6H PRN IV NAUSEA AND/OR VOMITING Last administered on 02/13/17 16:59; Admin Dose 4 MG; Start 02/11/17 at 01:30 Diagnostic Test (Pha) (Accu-Chek) 1 ea 02 XX Last administered on 02/13/17 01 :35; Admin Dose 1 EA; Start 02/11/17 at 02:00 Miscellaneous Information 1 ea NOTE XX ; Start 02/11/17 at 02:00 Glucose (Glutose) 15 gm Q15M PRN PO DECREASED GLUCOSE; Start 02/11/17 at 02:00 Glucose (Glutose) 22.5 gm Q15M PRN PO DECREASED GLUCOSE; Start 02/11/17 at 02: 00 Dextrose (D50w Syringe) 25 ml Q15M PRN IV DECREASED GLUCOSE; Start 02/11/17 at 02:00 Dextrose (D50w Syringe) 50 ml Q15M PRN IV DECREASED GLUCOSE; Start 02/11/17 at 02:00 Glucagon (Glucagen) 1 mg Q15M PRN IM DECREASED GLUCOSE; Start 02/11/17 at 02: 00 Glucose (Glutose) 15 gm Q15M PRN BUCCAL DECREASED GLUCOSE; Start 02/11/17 at 02:00 Amlodipine Besylate (Norvasc) 5 mg BID PO Last administered on 02/18/17 08:20 ; Admin Dose 5 MG; Start 02/11/17 at 21:00 Atorvastatin Calcium (Lipitor) 40 mg HS PO Last administered on 02/17/17 21: 06; Admin Dose 40 MG; Start 02/11/17 at 21:00 Cinacalcet (Sensipar) 30 mg BID PO Last administered on 02/18/17 08:20; Admin Dose 30 MG; Start 02/11/17 at 21:00 Clopidogrel Bisulfate (plaVIX) 75 mg DAILY PO Last administered on 02/18/17 08:21; Admin Dose 75 MG; Start 02/12/17 at 09:00 Losartan Potassium (Cozaar) 25 mg DAILY PO Last administered on 02/18/17 08: 20; Admin Dose 25 MG; Start 02/12/17 at 09:00 Metoprolol Succinate (Toprol Xl) 25 mg DAILY PO Last administered on 08:21; Admin Dose 25 MG; Start 02/12/17 at 09:00 Nifedipine (Procardia Xl) 60 mg DAILY PO Last administered on 02/18/17 08:19 ; Admin Dose 60 MG; Start 02/12/17 at 09:00 Zolpidem Tartrate (Ambien) 5 mg QHS PRN PO INSOMNIA; Start 02/11/17 at 13:00 Acetaminophen/ Hydrocodone Bitart ([place] (5/325)) 1 tab Q4H PRN PO PAIN Last administered on 02/17/17 15:02; Admin Dose 1 TAB; Start 02/11/17 at 17:00 Clonidine (Catapres) 0.1 mg Q6H PRN PO ELEVATED SYSTOLIC BP Last administered on 02/16/17 19:47; Admin Dose 0.1 MG; Start 02/12/17 at 01:30 Epoetin Jorge Luis (Epogen (Esrd)) 4,000 units MoWeFr@17 SC Last administered on 17:32; Admin Dose 4,000 UNITS; Start 02/12/17 at 17:00 Senna (Senokot) 2 tab BID PO Last administered on 02/17/17 09:08; Admin Dose 2 TAB; Start 02/13/17 at 09:00 Metoclopramide HCl (Reglan) 5 mg Q6H PRN IV N/V Last administered on 03:35; Admin Dose 5 MG; Start 02/13/17 at 03:30 Docusate Sodium (Colace) 100 mg BID PRN PO CONSTIPATION Last administered on 15:02; Admin Dose 100 MG; Start 02/13/17 at 13:30 Bisacodyl (Dulcolax) 10 mg DAILY PRN PO CONSTIPATION Last administered on 02/17 15:02; Admin Dose 10 MG; Start 02/13/17 at 13:30 Magnesium Hydroxide (Milk Of Mag) 30 ml BID PRN PO CONSTIPATION Last administered on 02/18/17 08:20; Admin Dose 30 ML; Start 02/14/17 at 13:30 Ondansetron HCl (Zofran Inj) 4 mg Q4H PRN IV NAUSEA AND/OR VOMITING; Start at 07:30 Doxycycline Hyclate (Vibramycin) 100 mg BID PO Last administered on 02/18/17 08:20; Admin Dose 100 MG; Start 02/17/17 at 21:00 Hydrocortisone (Anusol-Hc Supp) 25 mg TID PRN [place] HEMORROID PAIN/ITCHING; Start 02/17/17 at 18:00 Assessment/Plan Chief Complaint/Hosp Course SUBJECTIVE: C/o constipation, no fevers, looks comfortable. INDWELLINGS: Left upper extremity AV fistula. MICROBIOLOGY: Blood cultures had been negative. ANTIMICROBIALS: Doxycycline PHYSICAL EXAMINATION: GENERAL: Well-developed, chronically ill-appearing, elderly man in no distress. HEENT: Head atraumatic, normocephalic. Sclerae anicteric. Buccal mucosa dry. NECK: Supple. CHEST: Rise symmetrical. Breath sounds diminished to bases. HEART: S1, S2. ABDOMEN: Soft. Bowel tones present. EXTREMITIES: Left lower extremity gangrene. ASSESSMENT: 1. Left lower extremity dry gangrene. 2. Peripheral vascular disease. 3. End-stage renal disease, hemodialysis dependent. 4. Hypertension. 5. Constipation PLAN: The patient remains stable. Continue present care, laxatives and stool softeners, HD per renal, podiatry and vascular recommendations. Problems: SHITAL MCKEON NP Feb 18, 2017 14:32
--- NOTE | 2017-02-18 15:56 | PN ---
Date/Time of Note Date/Time of Note DATE: 02/18/17 TIME: 15:56 Assessment/Plan VTE Prophylaxis VTE Prophylaxis Intervention: SCD's Lines/Catheters IV [facility] Assessment/Plan Chief Complaint/Hosp Course Patient complains of diarrhea, patient received multiple medications for constipation past couple of days, will continue to monitor electrolytes. Assessment/Plan - Hyperkalemia, s/p HD - Left foot multiple gangrenous wounds. Dr. Zaragoza is following in vascular surgery consultation, Dr. Jackman is following in podiatry consultation. Dr. Tobias is following in ID consultation. Continue antibiotics per ID , continue current wound care. - End-stage renal disease, hemodialysis dependent. Dr. Newby is following in nephrology consultation. Continue on hemodialysis. - Hypertension. Continue home antihypertensive medication. Monitor blood pressure. - CAD - Permanent Pacemaker - Legally blind status. - Anemia of chronic disease. - Severe peripheral vascular disease. s/p angio witn notion of severe infrapopliteal disease and pedal disease. Further recommendations based on clinical course. Plan of care discussed with Dr. French. Problems: Exam/Review of Systems Vital Signs Vitals Vital Signs Date Time Temp Pulse Resp B/P Pulse Ox O2 Delivery O2 Flow Rate FiO2 02/18/17 15:22 98.6 70 20 116/57 94 02/14/17 16:00 Room Air Intake and Output 02/17/17 02/17/17 02/18/17 15:00 23:00 07:00 Intake Total 550 ml 500 ml 550 ml Output Total 3000 ml Balance -2450 ml 500 ml 550 ml Exam Constitutional: alert, oriented Head: normocephalic Neck: supple Respiratory: normal air movement Cardiovascular: nl pulses, other (Permanent pacemaker right groin) Gastrointestinal: non-tender, soft Extremities: normal pulses Results Result Diagram: 02/18/17 0605 02/18/17 0605 Results 24 hrs Laboratory Tests Test 02/17/17 17:29 02/17/17 21:06 02/18/17 06:05 02/18/17 08:18 Bedside Glucose 111 107 88 White Blood Count 8.2 Red Blood Count 3.18 L Hemoglobin 8.7 L Hematocrit 27.4 L Mean Corpuscular Volume 86.2 Mean Corpuscular Hemoglobin 27.4 L Mean Corpuscular Hemoglobin Concent 31.8 L Red Cell Distribution Width 17.3 H Platelet Count 250 Mean Platelet Volume 9.9 Neutrophils % 80.2 H Lymphocytes % 6.5 L Monocytes % 11.6 H Eosinophils % 0.7 Basophils % 0.6 Nucleated Red Blood Cells % 0.0 Neutrophils # 6.6 Lymphocytes # 0.5 L Monocytes # 1.0 H Eosinophils # 0.1 Basophils # 0.1 Nucleated Red Blood Cells # 0.0 Sodium Level 138 Potassium Level 4.8 Chloride Level 94 L Carbon Dioxide Level 31 Anion Gap 18 H Blood Urea Nitrogen 43 #H Creatinine 8.70 #H Glucose Level 78 Calcium Level 7.8 L Test 02/18/17 12:04 Bedside Glucose 127 Medications Medications Current Medications Morphine Sulfate (morphine) 2 mg Q4H PRN IV pain Last administered on 03:43; Admin Dose 2 MG; Start 02/11/17 at 01:30 Ondansetron HCl (Zofran Inj) 4 mg Q6H PRN IV NAUSEA AND/OR VOMITING Last administered on 02/13/17 16:59; Admin Dose 4 MG; Start 02/11/17 at 01:30 Diagnostic Test (Pha) (Accu-Chek) 1 ea 02 XX Last administered on 02/13/17 01 :35; Admin Dose 1 EA; Start 02/11/17 at 02:00 Miscellaneous Information 1 ea NOTE XX ; Start 02/11/17 at 02:00 Glucose (Glutose) 15 gm Q15M PRN PO DECREASED GLUCOSE; Start 02/11/17 at 02:00 Glucose (Glutose) 22.5 gm Q15M PRN PO DECREASED GLUCOSE; Start 02/11/17 at 02: 00 Dextrose (D50w Syringe) 25 ml Q15M PRN IV DECREASED GLUCOSE; Start 02/11/17 at 02:00 Dextrose (D50w Syringe) 50 ml Q15M PRN IV DECREASED GLUCOSE; Start 02/11/17 at 02:00 Glucagon (Glucagen) 1 mg Q15M PRN IM DECREASED GLUCOSE; Start 02/11/17 at 02: 00 Glucose (Glutose) 15 gm Q15M PRN BUCCAL DECREASED GLUCOSE; Start 02/11/17 at 02:00 Amlodipine Besylate (Norvasc) 5 mg BID PO Last administered on 02/18/17 08:20 ; Admin Dose 5 MG; Start 02/11/17 at 21:00 Atorvastatin Calcium (Lipitor) 40 mg HS PO Last administered on 02/17/17 21: 06; Admin Dose 40 MG; Start 02/11/17 at 21:00 Cinacalcet (Sensipar) 30 mg BID PO Last administered on 02/18/17 08:20; Admin Dose 30 MG; Start 02/11/17 at 21:00 Clopidogrel Bisulfate (plaVIX) 75 mg DAILY PO Last administered on 02/18/17 08:21; Admin Dose 75 MG; Start 02/12/17 at 09:00 Losartan Potassium (Cozaar) 25 mg DAILY PO Last administered on 02/18/17 08: 20; Admin Dose 25 MG; Start 02/12/17 at 09:00 Metoprolol Succinate (Toprol Xl) 25 mg DAILY PO Last administered on 08:21; Admin Dose 25 MG; Start 02/12/17 at 09:00 Nifedipine (Procardia Xl) 60 mg DAILY PO Last administered on 02/18/17 08:19 ; Admin Dose 60 MG; Start 02/12/17 at 09:00 Zolpidem Tartrate (Ambien) 5 mg QHS PRN PO INSOMNIA; Start 02/11/17 at 13:00 Acetaminophen/ Hydrocodone Bitart ([place] (5/325)) 1 tab Q4H PRN PO PAIN Last administered on 02/17/17 15:02; Admin Dose 1 TAB; Start 02/11/17 at 17:00 Clonidine (Catapres) 0.1 mg Q6H PRN PO ELEVATED SYSTOLIC BP Last administered on 02/16/17 19:47; Admin Dose 0.1 MG; Start 02/12/17 at 01:30 Epoetin Jorge Luis (Epogen (Esrd)) 4,000 units MoWeFr@17 SC Last administered on 17:32; Admin Dose 4,000 UNITS; Start 02/12/17 at 17:00 Senna (Senokot) 2 tab BID PO Last administered on 02/17/17 09:08; Admin Dose 2 TAB; Start 02/13/17 at 09:00 Metoclopramide HCl (Reglan) 5 mg Q6H PRN IV N/V Last administered on 03:35; Admin Dose 5 MG; Start 02/13/17 at 03:30 Docusate Sodium (Colace) 100 mg BID PRN PO CONSTIPATION Last administered on 15:02; Admin Dose 100 MG; Start 02/13/17 at 13:30 Bisacodyl (Dulcolax) 10 mg DAILY PRN PO CONSTIPATION Last administered on 02/17 15:02; Admin Dose 10 MG; Start 02/13/17 at 13:30 Magnesium Hydroxide (Milk Of Mag) 30 ml BID PRN PO CONSTIPATION Last administered on 02/18/17 08:20; Admin Dose 30 ML; Start 02/14/17 at 13:30 Ondansetron HCl (Zofran Inj) 4 mg Q4H PRN IV NAUSEA AND/OR VOMITING; Start at 07:30 Doxycycline Hyclate (Vibramycin) 100 mg BID PO Last administered on 02/18/17 08:20; Admin Dose 100 MG; Start 02/17/17 at 21:00 Hydrocortisone (Anusol-Hc Supp) 25 mg TID PRN [place] HEMORROID PAIN/ITCHING; Start 02/17/17 at 18:00 VIV KING Feb 18, 2017 15:56
--- NOTE | 2017-02-18 17:41 | CONS ---
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 Consultation Date/Type/Reason Admit Date/Time Feb 10, 2017 at 23:00 Initial Consult Date 02/11/17 Type of Consultation: Renal Referring Provider: POLY THRASHER MD 24 HR Interval Summary Free Text/Dictation S/p Angiogram and HD yesterday, Had constipation given Rx now with diarrhea. Constitutional: No requiring O2 Exam/Review of Systems Vital Signs Vitals Vital Signs Date Time Temp Pulse Resp B/P Pulse Ox O2 Delivery O2 Flow Rate FiO2 02/18/17 16:52 69 02/18/17 15:22 98.6 20 116/57 94 02/14/17 16:00 Room Air Intake and Output 02/17/17 02/17/17 02/18/17 14:59 22:59 06:59 Intake Total 550 ml 500 ml 550 ml Output Total 3000 ml Balance -2450 ml 500 ml 550 ml Exam Constitutional: alert, No distress ENMT: mucosa pink and moist Neck: No jvd Respiratory: clear to auscultation Cardiovascular: regular rate and rhythm, No edema Gastrointestinal: non-tender, soft Extremities: No edema Neurological: No confused, No lethargic Skin: No diaphoresis Results Result Diagram: 02/18/17 0605 02/18/17 0605 Results 24 hrs Laboratory Tests Test 02/17/17 21:06 02/18/17 06:05 02/18/17 08:18 02/18/17 12:04 Bedside Glucose 107 88 127 White Blood Count 8.2 Red Blood Count 3.18 L Hemoglobin 8.7 L Hematocrit 27.4 L Mean Corpuscular Volume 86.2 Mean Corpuscular Hemoglobin 27.4 L Mean Corpuscular Hemoglobin Concent 31.8 L Red Cell Distribution Width 17.3 H Platelet Count 250 Mean Platelet Volume 9.9 Neutrophils % 80.2 H Lymphocytes % 6.5 L Monocytes % 11.6 H Eosinophils % 0.7 Basophils % 0.6 Nucleated Red Blood Cells % 0.0 Neutrophils # 6.6 Lymphocytes # 0.5 L Monocytes # 1.0 H Eosinophils # 0.1 Basophils # 0.1 Nucleated Red Blood Cells # 0.0 Sodium Level 138 Potassium Level 4.8 Chloride Level 94 L Carbon Dioxide Level 31 Anion Gap 18 H Blood Urea Nitrogen 43 #H Creatinine 8.70 #H Glucose Level 78 Calcium Level 7.8 L Test 02/18/17 17:28 Bedside Glucose 111 Medications Medications Current Medications Morphine Sulfate (morphine) 2 mg Q4H PRN IV pain Last administered on 03:43; Admin Dose 2 MG; Start 02/11/17 at 01:30 Ondansetron HCl (Zofran Inj) 4 mg Q6H PRN IV NAUSEA AND/OR VOMITING Last administered on 02/13/17 16:59; Admin Dose 4 MG; Start 02/11/17 at 01:30 Diagnostic Test (Pha) (Accu-Chek) 1 ea 02 XX Last administered on 02/13/17 01 :35; Admin Dose 1 EA; Start 02/11/17 at 02:00 Miscellaneous Information 1 ea NOTE XX ; Start 02/11/17 at 02:00 Glucose (Glutose) 15 gm Q15M PRN PO DECREASED GLUCOSE; Start 02/11/17 at 02:00 Glucose (Glutose) 22.5 gm Q15M PRN PO DECREASED GLUCOSE; Start 02/11/17 at 02: 00 Dextrose (D50w Syringe) 25 ml Q15M PRN IV DECREASED GLUCOSE; Start 02/11/17 at 02:00 Dextrose (D50w Syringe) 50 ml Q15M PRN IV DECREASED GLUCOSE; Start 02/11/17 at 02:00 Glucagon (Glucagen) 1 mg Q15M PRN IM DECREASED GLUCOSE; Start 02/11/17 at 02: 00 Glucose (Glutose) 15 gm Q15M PRN BUCCAL DECREASED GLUCOSE; Start 02/11/17 at 02:00 Amlodipine Besylate (Norvasc) 5 mg BID PO Last administered on 02/18/17 08:20 ; Admin Dose 5 MG; Start 02/11/17 at 21:00 Atorvastatin Calcium (Lipitor) 40 mg HS PO Last administered on 02/17/17 21: 06; Admin Dose 40 MG; Start 02/11/17 at 21:00 Cinacalcet (Sensipar) 30 mg BID PO Last administered on 02/18/17 08:20; Admin Dose 30 MG; Start 02/11/17 at 21:00 Clopidogrel Bisulfate (plaVIX) 75 mg DAILY PO Last administered on 02/18/17 08:21; Admin Dose 75 MG; Start 02/12/17 at 09:00 Losartan Potassium (Cozaar) 25 mg DAILY PO Last administered on 02/18/17 08: 20; Admin Dose 25 MG; Start 02/12/17 at 09:00 Metoprolol Succinate (Toprol Xl) 25 mg DAILY PO Last administered on 08:21; Admin Dose 25 MG; Start 02/12/17 at 09:00 Nifedipine (Procardia Xl) 60 mg DAILY PO Last administered on 02/18/17 08:19 ; Admin Dose 60 MG; Start 02/12/17 at 09:00 Zolpidem Tartrate (Ambien) 5 mg QHS PRN PO INSOMNIA; Start 02/11/17 at 13:00 Acetaminophen/ Hydrocodone Bitart ([place] (5/325)) 1 tab Q4H PRN PO PAIN Last administered on 02/17/17 15:02; Admin Dose 1 TAB; Start 02/11/17 at 17:00 Clonidine (Catapres) 0.1 mg Q6H PRN PO ELEVATED SYSTOLIC BP Last administered on 02/16/17 19:47; Admin Dose 0.1 MG; Start 02/12/17 at 01:30 Epoetin Jorge Luis (Epogen (Esrd)) 4,000 units MoWeFr@17 SC Last administered on 17:32; Admin Dose 4,000 UNITS; Start 02/12/17 at 17:00 Senna (Senokot) 2 tab BID PO Last administered on 02/17/17 09:08; Admin Dose 2 TAB; Start 02/13/17 at 09:00 Metoclopramide HCl (Reglan) 5 mg Q6H PRN IV N/V Last administered on 03:35; Admin Dose 5 MG; Start 02/13/17 at 03:30 Docusate Sodium (Colace) 100 mg BID PRN PO CONSTIPATION Last administered on 15:02; Admin Dose 100 MG; Start 02/13/17 at 13:30 Bisacodyl (Dulcolax) 10 mg DAILY PRN PO CONSTIPATION Last administered on 02/17 15:02; Admin Dose 10 MG; Start 02/13/17 at 13:30 Magnesium Hydroxide (Milk Of Mag) 30 ml BID PRN PO CONSTIPATION Last administered on 02/18/17 08:20; Admin Dose 30 ML; Start 02/14/17 at 13:30 Ondansetron HCl (Zofran Inj) 4 mg Q4H PRN IV NAUSEA AND/OR VOMITING; Start at 07:30 Doxycycline Hyclate (Vibramycin) 100 mg BID PO Last administered on 02/18/17 08:20; Admin Dose 100 MG; Start 02/17/17 at 21:00 Hydrocortisone (Anusol-Hc Supp) 25 mg TID PRN [place] HEMORROID PAIN/ITCHING; Start 02/17/17 at 18:00 PIPER FELIX MD Feb 18, 2017 17:41
[2017-02-18] MEDS: ATORVASTATIN 40 MG TAB PO SCH (21:16)
[2017-02-18] MEDS: LACTOBACILLUS RHAMNOSUS CAP PO SCH (21:16)
--- NOTE | 2017-02-18 23:09 | PN ---
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 It seems the patient has developed worsening of his left lower extremity gangrene despite endovascular intervention. Upon his noninvasive vascular studies he does have infrainguinal disease. S/P LLE angiogram: The patient has in-line flow from the ADMINISTRATION SPECIALIST to the DP. Unfortunately the patient only has one tibial runoff and severe pedal disease that are not amenable to a surgical intervention that would improve his extensive wound gangrene. -Held a family discussion with the patient and daughter at the bedside and discussed the findings of the angiogram and options for vascular intervention and limitations. Discussed pts wound is less likely to heal given the extent of tissue loss and severe infrapopliteal and pedal disease. At the moment the wounds are dry gangrene and no urgency for a major amputation. He'll eventually need a BKA.and has limited limb salvage. -Continue with our wound care per our podiatry colleagues. -End-stage renal disease: It seems the patient has not had any issues regarding his fistula. His fistula ultrasound demonstrated areas of high velocities will plan for eventual fistulogram -Optimize vascular status (BP meds, diet, nutrition, exercise, sugar control, antiplatelets). -Discussed findings, plan and management with the patient and the family at the bedside and they understand. -Thank you for allowing us to participate in the care of your patient. Please call with any questions. Problems: Subjective 24 Hr Interval Summary no new vascular events overnights Exam/Review of Systems Vital Signs Vitals Vital Signs Date Time Temp Pulse Resp B/P Pulse Ox O2 Delivery O2 Flow Rate FiO2 02/18/17 20:02 69 02/18/17 19:51 98.0 20 111/57 95 02/14/17 16:00 Room Air Intake and Output 02/17/17 02/17/17 02/18/17 15:00 23:00 07:00 Intake Total 550 ml 500 ml 550 ml Output Total 3000 ml Balance -2450 ml 500 ml 550 ml Exam Free Text/Dictation GENERAL: Alert and oriented x3, PULMONARY: Clear to auscultation bilaterally CARDIOVASCULAR: S1, S2 present. ABDOMEN: Soft, nontender, nondistended. Bowel sounds positive. EXTREMITIES: Right lower extremity palpable femoral pulse, nonpalpable pedal pulse. Motor, sensory intact. Cap refill 3 seconds. No ulcers. Left lower extremity palpable femoral pulse, nonpalpable pedal pulse. Motor, sensory intact. Capillary refill 4 seconds. Dependent rubor of the forefoot, gangrene of fifth toe - dry. Minor tissue loss of the second, 3rd and 4th toes. Large heel gangrene Results Result Diagram: 02/18/17 0605 02/18/17 0605 AMOS KEYS MD Feb 18, 2017 23:09
--- NOTE | 2017-02-18 23:53 | PN ---
Date/Time of Note Date/Time of Note DATE: 02/18/17 TIME: 23:53 Assessment/Plan Lines/Catheters IV Catheter Type (from Nrsg): Saline Lock Assessment/Plan Problems: (1) Toe cyanosis Status: Acute (2) Diabetes, polyneuropathy Status: Chronic Qualifiers: Diabetes mellitus type: type 2 Qualified Code: E11.42 - Diabetic polyneuropathy associated with type 2 diabetes mellitus (3) Blindness Status: Chronic (4) Peripheral vascular disease (5) Hypertension Status: Acute Assessment/Plan Pending vascular surgery intervention. Will follow inhouse. Subjective 24 Hr Interval Summary Patient was seen at bedside. Patient is in no acute distress. Denies overnight adverse events. Denies fever, chills, nausea or vomiting. Reports bandages are being changed daily. Denies recent trauma. Exam/Review of Systems Vital Signs Vitals Vital Signs Date Time Temp Pulse Resp B/P Pulse Ox O2 Delivery O2 Flow Rate FiO2 02/27/17 19:35 98.5 78 20 135/75 98 02/27/17 08:00 Room Air Exam Free Text/Dictation GENERAL: Patient is in no acute distress laying supine in bed VASC: non palpable DP and PT b/l LEs; increased temp gradient b/l LEs; sig delayed CFT NEURO: decreased sensation to sharp, dull, vib and temp stimuli, normal DTRs DERM: gangrene of left foot including fifth toe, heel, midfoot with mult excoriations of the rest of the left foot; no erythema noted; dry skin present; no fluctuance ORTHO: tender to palpation left foot; rectus foot type with contracted toes IMAGING: reviewed LABS: reviewed MARKIE ORO DPM Feb 18, 2017 23:53
[2017-02-19] VITALS (19 sets, daily range): BP systolic 109–139; BP diastolic 51–74; PULSE 69–88; RESP 18–20
[2017-02-19 07:11] LABS: ABNORMAL IP MESSAGE 1; BASOPHIL # 0.1 10^3/ul (0.0-0.1); BASOPHILS % 0.7 % (0.0-2.0); EOSINOPHILS # 0.1 10^3/ul (0.0-0.5); EOSINOPHILS % 1.1 % (0.0-7.0); HEMATOCRIT 26.3 % (42.0-52.0); HEMOGLOBIN 8.3 g/dl (14.0-18.0); LYMPHOCYTES # 0.4 10^3/ul (0.8-2.9); LYMPHOCYTES % 5.7 % (15.0-51.0); MEAN CORPUSCULAR HEMOGLOBIN 27.1 pg (29.0-33.0); MEAN CORPUSCULAR HGB CONC 31.6 g/dl (32.0-37.0); MEAN CORPUSCULAR VOLUME 85.9 fl (82.0-101.0); MEAN PLATELET VOLUME 10.1 fl (7.4-10.4); MONOCYTE # 0.9 10^3/ul (0.3-0.9); NEUTROPHIL # 5.7 10^3/ul (1.6-7.5); NEUTROPHILS % 79.2 % (39.0-77.0); PLATELET COUNT 276 10^3/UL (140-415); POSITIVE DIFF @See below; RED BLOOD COUNT 3.06 10^6/ul (4.70-6.10); RED CELL DISTRIBUTION WIDTH 17.4 % (11.5-14.5); WHITE BLOOD COUNT 7.2 10^3/ul (4.8-10.8)
[2017-02-19 07:35] LABS: CALCIUM 7.6 mg/dl (8.4-10.2); CREATININE 6.76 mg/dl (0.61-1.24); POTASSIUM 4.4 mmol/L (3.5-5.1)
[2017-02-19] MEDS: INSULIN ASPART [NOVOLOG] 3 ML PEN SC SCH ×4 (07:55→20:19)
[2017-02-19] MEDS: SEVELAMER 800 MG TAB PO SCH ×3 (08:44→17:47)
[2017-02-19] MEDS: LACTOBACILLUS RHAMNOSUS CAP PO SCH ×2 (08:44→20:18)
[2017-02-19] MEDS: CINACALCET 30 MG TAB PO SCH ×2 (08:44→20:18)
[2017-02-19] MEDS: DOXYCYCLINE 100 MG TAB PO SCH ×2 (08:44→20:19)
[2017-02-19] MEDS: CLOPIDOGREL 75 MG TAB PO SCH (08:44)
[2017-02-19] MEDS: HYDROCODONE/APAP (5/325) TAB PO PRN ×3 (08:45→17:47)
[2017-02-19] MEDS: CALCIUM ACETATE 667 MG CAP PO SCH ×3 (08:45→17:47)
[2017-02-19] MEDS: AMLODIPINE 5 MG TAB PO SCH ×2 (08:46→20:19)
[2017-02-19] MEDS: NIFEdipine (XL) 60 MG TAB PO SCH (08:46)
[2017-02-19] MEDS: METOPROLOL (XL) 25 MG TAB PO SCH (08:46)
[2017-02-19] MEDS: LOSARTAN 25 MG TAB PO SCH (08:46)
[2017-02-19] MEDS: SENNA TAB PO SCH ×2 (08:47→20:18)
--- NOTE | 2017-02-19 12:10 | CONS ---
Date/Time of Note Date/Time of Note DATE: 02/19/17 TIME: 12:09 Assessment/Plan Assessment/Plan Additional Assessment/Plan (1) Blindness Status: Chronic (2) Diabetes, polyneuropathy Status: Chronic Qualifiers: Diabetes mellitus type: type 2 Qualified Code: E11.42 - Diabetic polyneuropathy associated with type 2 diabetes mellitus (3) Peripheral vascular disease (4) Toe cyanosis Status: Acute Assessment/Plan esrd had hd yesterday mwf schedule cont plan [id number] no change cont plan [id number] S/p angio, S/p HD [id number] HD tomorrow, MWF, probiotic ordered. [id number] s/p HD Cont MWF, Cont current treatment and plan. Consultation Date/Type/Reason Admit Date/Time Feb 10, 2017 at 23:00 Initial Consult Date 02/11/17 Type of Consultation: Renal Referring Provider: POLY THRASHER MD 24 HR Interval Summary Free Text/Dictation No new complaints, S/p HD today. Constitutional: No requiring O2 Exam/Review of Systems Vital Signs Vitals Vital Signs Date Time Temp Pulse Resp B/P Pulse Ox O2 Delivery O2 Flow Rate FiO2 02/19/17 11:36 98.1 70 19 139/60 98 Intake and Output 02/18/17 02/18/17 02/19/17 15:00 23:00 07:00 Intake Total 640 ml 240 ml Balance 640 ml 240 ml Exam Constitutional: alert, No distress Head: atraumatic Eyes: EOMI Neck: No jvd Respiratory: clear to auscultation Cardiovascular: regular rate and rhythm, No edema Gastrointestinal: non-tender, soft Extremities: No edema Neurological: nl mental status, No confused, No lethargic Skin: No diaphoresis Results Result Diagram: 02/19/1743 02/19/1743 Results 24 hrs Laboratory Tests Test 02/18/17 17:28 02/18/17 21:15 02/19/17 06:43 02/19/17 08:42 Bedside Glucose 111 119 115 White Blood Count 7.2 Red Blood Count 3.06 L Hemoglobin 8.3 L Hematocrit 26.3 L Mean Corpuscular Volume 85.9 Mean Corpuscular Hemoglobin 27.1 L Mean Corpuscular Hemoglobin Concent 31.6 L Red Cell Distribution Width 17.4 H Platelet Count 276 Mean Platelet Volume 10.1 Neutrophils % 79.2 H Lymphocytes % 5.7 L Monocytes % 13.0 H Eosinophils % 1.1 Basophils % 0.7 Nucleated Red Blood Cells % 0.0 Neutrophils # 5.7 Lymphocytes # 0.4 L Monocytes # 0.9 Eosinophils # 0.1 Basophils # 0.1 Nucleated Red Blood Cells # 0.0 Sodium Level 138 Potassium Level 4.4 Chloride Level 96 L Carbon Dioxide Level 31 Anion Gap 15 Blood Urea Nitrogen 35 H Creatinine 6.76 H Glucose Level 119 # Calcium Level 7.6 L Medications Medications Current Medications Morphine Sulfate (morphine) 2 mg Q4H PRN IV pain Last administered on 03:43; Admin Dose 2 MG; Start 02/11/17 at 01:30 Ondansetron HCl (Zofran Inj) 4 mg Q6H PRN IV NAUSEA AND/OR VOMITING Last administered on 02/13/17 16:59; Admin Dose 4 MG; Start 02/11/17 at 01:30 Diagnostic Test (Pha) (Accu-Chek) 1 ea 02 XX Last administered on 02/13/17 01 :35; Admin Dose 1 EA; Start 02/11/17 at 02:00 Miscellaneous Information 1 ea NOTE XX ; Start 02/11/17 at 02:00 Glucose (Glutose) 15 gm Q15M PRN PO DECREASED GLUCOSE; Start 02/11/17 at 02:00 Glucose (Glutose) 22.5 gm Q15M PRN PO DECREASED GLUCOSE; Start 02/11/17 at 02: 00 Dextrose (D50w Syringe) 25 ml Q15M PRN IV DECREASED GLUCOSE; Start 02/11/17 at 02:00 Dextrose (D50w Syringe) 50 ml Q15M PRN IV DECREASED GLUCOSE; Start 02/11/17 at 02:00 Glucagon (Glucagen) 1 mg Q15M PRN IM DECREASED GLUCOSE; Start 02/11/17 at 02: 00 Glucose (Glutose) 15 gm Q15M PRN BUCCAL DECREASED GLUCOSE; Start 02/11/17 at 02:00 Amlodipine Besylate (Norvasc) 5 mg BID PO Last administered on 02/19/17 08:46 ; Admin Dose 5 MG; Start 02/11/17 at 21:00 Atorvastatin Calcium (Lipitor) 40 mg HS PO Last administered on 02/18/17 21: 16; Admin Dose 40 MG; Start 02/11/17 at 21:00 Cinacalcet (Sensipar) 30 mg BID PO Last administered on 02/19/17 08:44; Admin Dose 30 MG; Start 02/11/17 at 21:00 Clopidogrel Bisulfate (plaVIX) 75 mg DAILY PO Last administered on 02/19/17 08:44; Admin Dose 75 MG; Start 02/12/17 at 09:00 Losartan Potassium (Cozaar) 25 mg DAILY PO Last administered on 02/19/17 08: 46; Admin Dose 25 MG; Start 02/12/17 at 09:00 Metoprolol Succinate (Toprol Xl) 25 mg DAILY PO Last administered on 08:46; Admin Dose 25 MG; Start 02/12/17 at 09:00 Nifedipine (Procardia Xl) 60 mg DAILY PO Last administered on 02/19/17 08:46 ; Admin Dose 60 MG; Start 02/12/17 at 09:00 Zolpidem Tartrate (Ambien) 5 mg QHS PRN PO INSOMNIA; Start 02/11/17 at 13:00 Acetaminophen/ Hydrocodone Bitart ([place] (5/325)) 1 tab Q4H PRN PO PAIN Last administered on 02/19/17 08:45; Admin Dose 1 TAB; Start 02/11/17 at 17:00 Clonidine (Catapres) 0.1 mg Q6H PRN PO ELEVATED SYSTOLIC BP Last administered on 02/16/17 19:47; Admin Dose 0.1 MG; Start 02/12/17 at 01:30 Epoetin Jorge Luis (Epogen (Esrd)) 4,000 units MoWeFr@17 SC Last administered on 17:32; Admin Dose 4,000 UNITS; Start 02/12/17 at 17:00 Senna (Senokot) 2 tab BID PO Last administered on 02/17/17 09:08; Admin Dose 2 TAB; Start 02/13/17 at 09:00 Metoclopramide HCl (Reglan) 5 mg Q6H PRN IV N/V Last administered on 03:35; Admin Dose 5 MG; Start 02/13/17 at 03:30 Docusate Sodium (Colace) 100 mg BID PRN PO CONSTIPATION Last administered on 15:02; Admin Dose 100 MG; Start 02/13/17 at 13:30 Bisacodyl (Dulcolax) 10 mg DAILY PRN PO CONSTIPATION Last administered on 02/17 15:02; Admin Dose 10 MG; Start 02/13/17 at 13:30 Magnesium Hydroxide (Milk Of Mag) 30 ml BID PRN PO CONSTIPATION Last administered on 02/18/17 08:20; Admin Dose 30 ML; Start 02/14/17 at 13:30 Ondansetron HCl (Zofran Inj) 4 mg Q4H PRN IV NAUSEA AND/OR VOMITING; Start at 07:30 Doxycycline Hyclate (Vibramycin) 100 mg BID PO Last administered on 02/19/17 08:44; Admin Dose 100 MG; Start 02/17/17 at 21:00 Hydrocortisone (Anusol-Hc Supp) 25 mg TID PRN [place] HEMORROID PAIN/ITCHING; Start 02/17/17 at 18:00 Lactobacillus Acidophilus/ Rhamnosus (Culturelle) 1 cap BID PO Last administered on 02/19/17 08:44; Admin Dose 1 CAP; Start 02/18/17 at 21:00 PIPER FELIX MD Feb 19, 2017 12:10
--- NOTE | 2017-02-19 13:09 | CONS ---
Date/Time of Note Date/Time of Note DATE: 02/19/17 TIME: 13:08 Consult Date/Type/Reason Admit Date/Time Feb 10, 2017 at 23:00 Initial Consult Date 02/11/17 Type of Consultation: ID Ordering Provider: POLY THRASHER MD Objective Vital Signs Date Time Temp Pulse Resp B/P Pulse Ox O2 Delivery O2 Flow Rate FiO2 02/19/17 13:06 Room Air 02/19/17 12:43 73 02/19/17 11:36 98.1 19 139/60 98 Intake and Output 02/18/17 02/18/17 02/19/17 15:00 23:00 07:00 Intake Total 640 ml 240 ml Balance 640 ml 240 ml Results/Medications Result Diagram: 02/19/17 0643 02/19/1743 Results 24 hrs Laboratory Tests Test 02/18/17 17:28 02/18/17 21:15 02/19/17 06:43 02/19/17 08:42 Bedside Glucose 111 119 115 White Blood Count 7.2 Red Blood Count 3.06 L Hemoglobin 8.3 L Hematocrit 26.3 L Mean Corpuscular Volume 85.9 Mean Corpuscular Hemoglobin 27.1 L Mean Corpuscular Hemoglobin Concent 31.6 L Red Cell Distribution Width 17.4 H Platelet Count 276 Mean Platelet Volume 10.1 Neutrophils % 79.2 H Lymphocytes % 5.7 L Monocytes % 13.0 H Eosinophils % 1.1 Basophils % 0.7 Nucleated Red Blood Cells % 0.0 Neutrophils # 5.7 Lymphocytes # 0.4 L Monocytes # 0.9 Eosinophils # 0.1 Basophils # 0.1 Nucleated Red Blood Cells # 0.0 Sodium Level 138 Potassium Level 4.4 Chloride Level 96 L Carbon Dioxide Level 31 Anion Gap 15 Blood Urea Nitrogen 35 H Creatinine 6.76 H Glucose Level 119 # Calcium Level 7.6 L Test 02/19/17 12:22 Bedside Glucose 68 L Medications Current Medications Morphine Sulfate (morphine) 2 mg Q4H PRN IV pain Last administered on 03:43; Admin Dose 2 MG; Start 02/11/17 at 01:30 Ondansetron HCl (Zofran Inj) 4 mg Q6H PRN IV NAUSEA AND/OR VOMITING Last administered on 02/13/17 16:59; Admin Dose 4 MG; Start 02/11/17 at 01:30 Diagnostic Test (Pha) (Accu-Chek) 1 ea 02 XX Last administered on 02/13/17 01 :35; Admin Dose 1 EA; Start 02/11/17 at 02:00 Miscellaneous Information 1 ea NOTE XX ; Start 02/11/17 at 02:00 Glucose (Glutose) 15 gm Q15M PRN PO DECREASED GLUCOSE; Start 02/11/17 at 02:00 Glucose (Glutose) 22.5 gm Q15M PRN PO DECREASED GLUCOSE; Start 02/11/17 at 02: 00 Dextrose (D50w Syringe) 25 ml Q15M PRN IV DECREASED GLUCOSE; Start 02/11/17 at 02:00 Dextrose (D50w Syringe) 50 ml Q15M PRN IV DECREASED GLUCOSE; Start 02/11/17 at 02:00 Glucagon (Glucagen) 1 mg Q15M PRN IM DECREASED GLUCOSE; Start 02/11/17 at 02: 00 Glucose (Glutose) 15 gm Q15M PRN BUCCAL DECREASED GLUCOSE; Start 02/11/17 at 02:00 Amlodipine Besylate (Norvasc) 5 mg BID PO Last administered on 02/19/17 08:46 ; Admin Dose 5 MG; Start 02/11/17 at 21:00 Atorvastatin Calcium (Lipitor) 40 mg HS PO Last administered on 02/18/17 21: 16; Admin Dose 40 MG; Start 02/11/17 at 21:00 Cinacalcet (Sensipar) 30 mg BID PO Last administered on 02/19/17 08:44; Admin Dose 30 MG; Start 02/11/17 at 21:00 Clopidogrel Bisulfate (plaVIX) 75 mg DAILY PO Last administered on 02/19/17 08:44; Admin Dose 75 MG; Start 02/12/17 at 09:00 Losartan Potassium (Cozaar) 25 mg DAILY PO Last administered on 02/19/17 08: 46; Admin Dose 25 MG; Start 02/12/17 at 09:00 Metoprolol Succinate (Toprol Xl) 25 mg DAILY PO Last administered on 08:46; Admin Dose 25 MG; Start 02/12/17 at 09:00 Nifedipine (Procardia Xl) 60 mg DAILY PO Last administered on 02/19/17 08:46 ; Admin Dose 60 MG; Start 02/12/17 at 09:00 Zolpidem Tartrate (Ambien) 5 mg QHS PRN PO INSOMNIA; Start 02/11/17 at 13:00 Acetaminophen/ Hydrocodone Bitart ([place] (5/325)) 1 tab Q4H PRN PO PAIN Last administered on 02/19/17 08:45; Admin Dose 1 TAB; Start 02/11/17 at 17:00 Clonidine (Catapres) 0.1 mg Q6H PRN PO ELEVATED SYSTOLIC BP Last administered on 02/16/17 19:47; Admin Dose 0.1 MG; Start 02/12/17 at 01:30 Epoetin Jorge Luis (Epogen (Esrd)) 4,000 units MoWeFr@17 SC Last administered on 17:32; Admin Dose 4,000 UNITS; Start 02/12/17 at 17:00 Senna (Senokot) 2 tab BID PO Last administered on 02/17/17 09:08; Admin Dose 2 TAB; Start 02/13/17 at 09:00 Metoclopramide HCl (Reglan) 5 mg Q6H PRN IV N/V Last administered on 03:35; Admin Dose 5 MG; Start 02/13/17 at 03:30 Docusate Sodium (Colace) 100 mg BID PRN PO CONSTIPATION Last administered on 15:02; Admin Dose 100 MG; Start 02/13/17 at 13:30 Bisacodyl (Dulcolax) 10 mg DAILY PRN PO CONSTIPATION Last administered on 02/17 15:02; Admin Dose 10 MG; Start 02/13/17 at 13:30 Magnesium Hydroxide (Milk Of Mag) 30 ml BID PRN PO CONSTIPATION Last administered on 02/18/17 08:20; Admin Dose 30 ML; Start 02/14/17 at 13:30 Ondansetron HCl (Zofran Inj) 4 mg Q4H PRN IV NAUSEA AND/OR VOMITING; Start at 07:30 Doxycycline Hyclate (Vibramycin) 100 mg BID PO Last administered on 02/19/17 08:44; Admin Dose 100 MG; Start 02/17/17 at 21:00 Hydrocortisone (Anusol-Hc Supp) 25 mg TID PRN [place] HEMORROID PAIN/ITCHING; Start 02/17/17 at 18:00 Lactobacillus Acidophilus/ Rhamnosus (Culturelle) 1 cap BID PO Last administered on 02/19/17t 08:44; Admin Dose 1 CAP; Start 02/18/17 at 21:00 Assessment/Plan Chief Complaint/Hosp Course SUBJECTIVE: No fevers, looks comfortable. INDWELLINGS: Left upper extremity AV fistula. MICROBIOLOGY: Blood cultures had been negative. ANTIMICROBIALS: Doxycycline PHYSICAL EXAMINATION: GENERAL: Well-developed, chronically ill-appearing, elderly man in no distress. HEENT: Head atraumatic, normocephalic. Sclerae anicteric. Buccal mucosa dry. NECK: Supple. CHEST: Rise symmetrical. Breath sounds diminished to bases. HEART: S1, S2. ABDOMEN: Soft. Bowel tones present. EXTREMITIES: Left lower extremity gangrene. ASSESSMENT: 1. Left lower extremity dry gangrene. 2. Peripheral vascular disease. 3. End-stage renal disease, hemodialysis dependent. 4. Hypertension. 5. Constipation PLAN: The patient remains unchanged. Continue present care, laxatives and stool softeners, HD per renal, podiatry and vascular recommendations. Problems: SHITAL MCKEON NP Feb 19, 2017 13:08
--- NOTE | 2017-02-19 16:08 | PN ---
Date/Time of Note Date/Time of Note DATE: 02/19/17 TIME: 16:06 Assessment/Plan VTE Prophylaxis VTE Prophylaxis Intervention: heparin Lines/Catheters IV C[facility]ter Type (from [facility]): Saline Lock Assessment/Plan Chief Complaint/Hosp Course Patient complains of generalized weakness and left lower extremity pain. Assessment/Plan - Hyperkalemia, s/p HD - Left foot multiple gangrenous wounds. Dr. Zaragoza is following in vascular surgery consultation, Dr. Jackman is following in podiatry consultation. Dr. Tobias is following in ID consultation. Continue antibiotics per ID , continue current wound care. - End-stage renal disease, hemodialysis dependent. Dr. Newby is following in nephrology consultation. Continue on hemodialysis. - Hypertension. Continue home antihypertensive medication. Monitor blood pressure. - CAD - Permanent Pacemaker - Legally blind status. - Anemia of chronic disease. - Severe peripheral vascular disease. s/p angio with notion of severe infrapopliteal disease and pedal disease. Further recommendations based on clinical course. Plan of care discussed with Dr. French. Problems: Exam/Review of Systems Vital Signs Vitals Vital Signs Date Time Temp Pulse Resp B/P Pulse Ox O2 Delivery O2 Flow Rate FiO2 02/19/17 16:05 Room Air 02/19/17 15:06 98.2 79 19 130/62 98 Intake and Output 02/18/17 02/18/17 02/19/17 15:00 23:00 07:00 Intake Total 640 ml 240 ml Balance 640 ml 240 ml Exam Constitutional: alert, oriented Head: normocephalic Neck: supple Respiratory: normal air movement Cardiovascular: nl pulses, other (Permanent pacemaker right groin) Gastrointestinal: non-tender, soft Extremities: normal pulses Results Result Diagram: 02/19/1743 02/19/1743 Results 24 hrs Laboratory Tests Test 02/18/17 17:28 02/18/17 21:15 02/19/17 06:43 02/19/17 08:42 Bedside Glucose 111 119 115 White Blood Count 7.2 Red Blood Count 3.06 L Hemoglobin 8.3 L Hematocrit 26.3 L Mean Corpuscular Volume 85.9 Mean Corpuscular Hemoglobin 27.1 L Mean Corpuscular Hemoglobin Concent 31.6 L Red Cell Distribution Width 17.4 H Platelet Count 276 Mean Platelet Volume 10.1 Neutrophils % 79.2 H Lymphocytes % 5.7 L Monocytes % 13.0 H Eosinophils % 1.1 Basophils % 0.7 Nucleated Red Blood Cells % 0.0 Neutrophils # 5.7 Lymphocytes # 0.4 L Monocytes # 0.9 Eosinophils # 0.1 Basophils # 0.1 Nucleated Red Blood Cells # 0.0 Sodium Level 138 Potassium Level 4.4 Chloride Level 96 L Carbon Dioxide Level 31 Anion Gap 15 Blood Urea Nitrogen 35 H Creatinine 6.76 H Glucose Level 119 # Calcium Level 7.6 L Test 02/19/17 12:22 02/19/17 13:38 Bedside Glucose 68 L 79 Medications Medications Current Medications Morphine Sulfate (morphine) 2 mg Q4H PRN IV pain Last administered on 03:43; Admin Dose 2 MG; Start 02/11/17 at 01:30 Ondansetron HCl (Zofran Inj) 4 mg Q6H PRN IV NAUSEA AND/OR VOMITING Last administered on 02/13/17 16:59; Admin Dose 4 MG; Start 02/11/17 at 01:30 Diagnostic Test (Pha) (Accu-Chek) 1 ea 02 XX Last administered on 02/13/17 01 :35; Admin Dose 1 EA; Start 02/11/17 at 02:00 Miscellaneous Information 1 ea NOTE XX ; Start 02/11/17 at 02:00 Glucose (Glutose) 15 gm Q15M PRN PO DECREASED GLUCOSE; Start 02/11/17 at 02:00 Glucose (Glutose) 22.5 gm Q15M PRN PO DECREASED GLUCOSE; Start 02/11/17 at 02: 00 Dextrose (D50w Syringe) 25 ml Q15M PRN IV DECREASED GLUCOSE; Start 02/11/17 at 02:00 Dextrose (D50w Syringe) 50 ml Q15M PRN IV DECREASED GLUCOSE; Start 02/11/17 at 02:00 Glucagon (Glucagen) 1 mg Q15M PRN IM DECREASED GLUCOSE; Start 02/11/17 at 02: 00 Glucose (Glutose) 15 gm Q15M PRN BUCCAL DECREASED GLUCOSE; Start 02/11/17 at 02:00 Amlodipine Besylate (Norvasc) 5 mg BID PO Last administered on 02/19/17 08:46 ; Admin Dose 5 MG; Start 02/11/17 at 21:00 Atorvastatin Calcium (Lipitor) 40 mg HS PO Last administered on 02/18/17 21: 16; Admin Dose 40 MG; Start 02/11/17 at 21:00 Cinacalcet (Sensipar) 30 mg BID PO Last administered on 02/19/17 08:44; Admin Dose 30 MG; Start 02/11/17 at 21:00 Clopidogrel Bisulfate (plaVIX) 75 mg DAILY PO Last administered on 02/19/17 08:44; Admin Dose 75 MG; Start 02/12/17 at 09:00 Losartan Potassium (Cozaar) 25 mg DAILY PO Last administered on 02/19/17 08: 46; Admin Dose 25 MG; Start 02/12/17 at 09:00 Metoprolol Succinate (Toprol Xl) 25 mg DAILY PO Last administered on 08:46; Admin Dose 25 MG; Start 02/12/17 at 09:00 Nifedipine (Procardia Xl) 60 mg DAILY PO Last administered on 02/19/17 08:46 ; Admin Dose 60 MG; Start 02/12/17 at 09:00 Zolpidem Tartrate (Ambien) 5 mg QHS PRN PO INSOMNIA; Start 02/11/17 at 13:00 Acetaminophen/ Hydrocodone Bitart ([place] (5/325)) 1 tab Q4H PRN PO PAIN Last administered on 02/19/17 13:34; Admin Dose 1 TAB; Start 02/11/17 at 17:00 Clonidine (Catapres) 0.1 mg Q6H PRN PO ELEVATED SYSTOLIC BP Last administered on 02/16/17 19:47; Admin Dose 0.1 MG; Start 02/12/17 at 01:30 Epoetin Jorge Luis (Epogen (Esrd)) 4,000 units MoWeFr@17 SC Last administered on 17:32; Admin Dose 4,000 UNITS; Start 02/12/17 at 17:00 Senna (Senokot) 2 tab BID PO Last administered on 02/17/17 09:08; Admin Dose 2 TAB; Start 02/13/17 at 09:00 Metoclopramide HCl (Reglan) 5 mg Q6H PRN IV N/V Last administered on 03:35; Admin Dose 5 MG; Start 02/13/17 at 03:30 Docusate Sodium (Colace) 100 mg BID PRN PO CONSTIPATION Last administered on 15:02; Admin Dose 100 MG; Start 02/13/17 at 13:30 Bisacodyl (Dulcolax) 10 mg DAILY PRN PO CONSTIPATION Last administered on 02/17 15:02; Admin Dose 10 MG; Start 02/13/17 at 13:30 Magnesium Hydroxide (Milk Of Mag) 30 ml BID PRN PO CONSTIPATION Last administered on 02/18/17 08:20; Admin Dose 30 ML; Start 02/14/17 at 13:30 Ondansetron HCl (Zofran Inj) 4 mg Q4H PRN IV NAUSEA AND/OR VOMITING; Start at 07:30 Doxycycline Hyclate (Vibramycin) 100 mg BID PO Last administered on 02/19/17 08:44; Admin Dose 100 MG; Start 02/17/17 at 21:00 Hydrocortisone (Anusol-Hc Supp) 25 mg TID PRN [place] HEMORROID PAIN/ITCHING; Start 02/17/17 at 18:00 Lactobacillus Acidophilus/ Rhamnosus (Culturelle) 1 cap BID PO Last administered on 02/19/17 08:44; Admin Dose 1 CAP; Start 02/18/17 at 21:00 VIV KING Feb 19, 2017 16:08
[2017-02-19] MEDS: EPOETIN 4000 UNITS/1 ML INJ (ESRD) SC SCH (17:48)
[2017-02-19] MEDS: ATORVASTATIN 40 MG TAB PO SCH (20:18)
[2017-02-20] VITALS (13 sets, daily range): BP systolic 94–148; BP diastolic 53–74; PULSE 67–72; RESP 16–20
[2017-02-20] MEDS: HYDROCODONE/APAP (5/325) TAB PO PRN ×2 (01:36→08:53)
[2017-02-20] MEDS: ACCU-CHEK XX SCH (02:00)
[2017-02-20 07:46] LABS: BASOPHIL # 0.1 10^3/ul (0.0-0.1); BASOPHILS % 1.1 % (0.0-2.0); EOSINOPHILS # 0.1 10^3/ul (0.0-0.5); EOSINOPHILS % 1.6 % (0.0-7.0); HEMATOCRIT 28.6 % (42.0-52.0); HEMOGLOBIN 8.8 g/dl (14.0-18.0); LYMPHOCYTES # 0.6 10^3/ul (0.8-2.9); LYMPHOCYTES % 11.4 % (15.0-51.0); MEAN CORPUSCULAR HEMOGLOBIN 26.8 pg (29.0-33.0); MEAN CORPUSCULAR HGB CONC 30.8 g/dl (32.0-37.0); MEAN CORPUSCULAR VOLUME 87.2 fl (82.0-101.0); MEAN PLATELET VOLUME 10.1 fl (7.4-10.4); MONOCYTE # 0.9 10^3/ul (0.3-0.9); MONOCYTES % 16.5 % (0.0-11.0); NEUTROPHIL # 3.9 10^3/ul (1.6-7.5); NEUTROPHILS % 69.2 % (39.0-77.0); PLATELET COUNT 278 10^3/UL (140-415); RED BLOOD COUNT 3.28 10^6/ul (4.70-6.10); RED CELL DISTRIBUTION WIDTH 17.5 % (11.5-14.5); WHITE BLOOD COUNT 5.6 10^3/ul (4.8-10.8)
[2017-02-20] MEDS: INSULIN ASPART [NOVOLOG] 3 ML PEN SC SCH ×4 (07:55→20:19)
[2017-02-20 08:10] LABS: CALCIUM 7.8 mg/dl (8.4-10.2); CREATININE 7.89 mg/dl (0.61-1.24); POTASSIUM 5.3 mmol/L (3.5-5.1)
[2017-02-20] MEDS: CALCIUM ACETATE 667 MG CAP PO SCH ×3 (08:35→17:37)
[2017-02-20] MEDS: LOSARTAN 25 MG TAB PO SCH (08:36)
[2017-02-20] MEDS: CLOPIDOGREL 75 MG TAB PO SCH (08:37)
[2017-02-20] MEDS: AMLODIPINE 5 MG TAB PO SCH ×2 (08:38→20:16)
[2017-02-20] MEDS: LACTOBACILLUS RHAMNOSUS CAP PO SCH ×2 (08:38→20:15)
[2017-02-20] MEDS: NIFEdipine (XL) 60 MG TAB PO SCH (08:39)
[2017-02-20] MEDS: CINACALCET 30 MG TAB PO SCH ×2 (08:40→20:15)
[2017-02-20] MEDS: SENNA TAB PO SCH ×3 (08:40→20:23)
[2017-02-20] MEDS: DOXYCYCLINE 100 MG TAB PO SCH ×2 (08:40→20:15)
[2017-02-20] MEDS: SEVELAMER 800 MG TAB PO SCH ×3 (08:46→17:37)
[2017-02-20] MEDS: METOPROLOL (XL) 25 MG TAB PO SCH (08:54)
--- NOTE | 2017-02-20 16:11 | PN ---
Date/Time of Note Date/Time of Note DATE: 02/20/17 TIME: 16:01 Assessment/Plan VTE Prophylaxis VTE Prophylaxis Intervention: other Lines/Catheters IV [facility]ter Type [facility]from [facility]): Saline Lock Urinary Cath still in place: No Assessment/Plan Assessment/Plan - Hyperkalemia - kayexalate 15 gm po x1 - bmp am - Left foot multiple gangrenous wounds. Dr. Zaragoza is following in vascular surgery consultation, Dr. Jackman is following in podiatry consultation. Dr. Tobias is following in ID consultation. Continue antibiotics per ID , continue current wound care. - End-stage renal disease, hemodialysis dependent. Dr. Newby is following in nephrology consultation. Continue on hemodialysis. - Hypertension. Continue home antihypertensive medication. Monitor blood pressure. - CAD - Permanent Pacemaker - Legally blind status. - Anemia of chronic disease. - Severe peripheral vascular disease. s/p angio with notion of severe infrapopliteal disease and pedal disease. Further recommendations based on clinical course. Plan of care discussed with Dr. French. Subjective 24 Hr Interval Summary Free Text/Dictation afebrile, K is elevated, nephrology follows, dw staff. Respiratory: no complaints Cardiovascular: no complaints Gastrointestinal: no complaints Exam/Review of Systems Vital Signs Vitals Vital Signs Date Time Temp Pulse Resp B/P Pulse Ox O2 Delivery O2 Flow Rate FiO2 02/20/17 15:20 98.2 69 19 124/74 98 02/19/17 16:05 Room Air Intake and Output 02/19/17 02/19/17 02/20/17 14:59 22:59 06:59 Intake Total 200 ml 400 ml 120 ml Output Total 2600 ml Balance -2400 ml 400 ml 120 ml Exam Constitutional: alert, oriented Respiratory: diminished breath sounds, normal air movement Cardiovascular: other (s1s2) Gastrointestinal: soft Musculoskeletal: nl extremities to inspection Extremities: normal pulses Neurological: nl speech Results Result Diagram: 02/20/17 0653 02/20/17 0653 Results 24 hrs Laboratory Tests Test 02/19/17 17:46 02/19/17 20:14 02/20/17 06:53 02/20/17 08:18 Bedside Glucose 97 98 88 White Blood Count 5.6 # Red Blood Count 3.28 L Hemoglobin 8.8 L Hematocrit 28.6 L Mean Corpuscular Volume 87.2 Mean Corpuscular Hemoglobin 26.8 L Mean Corpuscular Hemoglobin Concent 30.8 L Red Cell Distribution Width 17.5 H Platelet Count 278 Mean Platelet Volume 10.1 Neutrophils % 69.2 Lymphocytes % 11.4 L Monocytes % 16.5 H Eosinophils % 1.6 Basophils % 1.1 Nucleated Red Blood Cells % 0.0 Neutrophils # 3.9 Lymphocytes # 0.6 L Monocytes # 0.9 Eosinophils # 0.1 Basophils # 0.1 Nucleated Red Blood Cells # 0.0 Sodium Level 139 Potassium Level 5.3 H Chloride Level 98 Carbon Dioxide Level 30 Anion Gap 16 Blood Urea Nitrogen 35 H Creatinine 7.89 H Glucose Level 78 # Calcium Level 7.8 L Test 02/20/17 12:35 Bedside Glucose 76 Medications Medications Current Medications Morphine Sulfate (morphine) 2 mg Q4H PRN IV pain Last administered on 03:43; Admin Dose 2 MG; Start 02/11/17 at 01:30 Ondansetron HCl (Zofran Inj) 4 mg Q6H PRN IV NAUSEA AND/OR VOMITING Last administered on 02/13/17 16:59; Admin Dose 4 MG; Start 02/11/17 at 01:30 Diagnostic Test (Pha) (Accu-Chek) 1 ea 02 XX Last administered on 02/13/17 01 :35; Admin Dose 1 EA; Start 02/11/17 at 02:00 Miscellaneous Information 1 ea NOTE XX ; Start 02/11/17 at 02:00 Glucose (Glutose) 15 gm Q15M PRN PO DECREASED GLUCOSE; Start 02/11/17 at 02:00 Glucose (Glutose) 22.5 gm Q15M PRN PO DECREASED GLUCOSE; Start 02/11/17 at 02: 00 Dextrose (D50w Syringe) 25 ml Q15M PRN IV DECREASED GLUCOSE; Start 02/11/17 at 02:00 Dextrose (D50w Syringe) 50 ml Q15M PRN IV DECREASED GLUCOSE; Start 02/11/17 at 02:00 Glucagon (Glucagen) 1 mg Q15M PRN IM DECREASED GLUCOSE; Start 02/11/17 at 02: 00 Glucose (Glutose) 15 gm Q15M PRN BUCCAL DECREASED GLUCOSE; Start 02/11/17 at 02:00 Amlodipine Besylate (Norvasc) 5 mg BID PO Last administered on 02/20/17 08:38 ; Admin Dose 5 MG; Start 02/11/17 at 21:00 Atorvastatin Calcium (Lipitor) 40 mg HS PO Last administered on 02/19/17 20: 18; Admin Dose 40 MG; Start 02/11/17 at 21:00 Cinacalcet (Sensipar) 30 mg BID PO Last administered on 02/20/17 08:40; Admin Dose 30 MG; Start 02/11/17 at 21:00 Clopidogrel Bisulfate (plaVIX) 75 mg DAILY PO Last administered on 02/20/17 08:37; Admin Dose 75 MG; Start 02/12/17 at 09:00 Losartan Potassium (Cozaar) 25 mg DAILY PO Last administered on 02/20/17 08: 36; Admin Dose 25 MG; Start 02/12/17 at 09:00 Metoprolol Succinate (Toprol Xl) 25 mg DAILY PO Last administered on 08:54; Admin Dose 25 MG; Start 02/12/17 at 09:00 Nifedipine (Procardia Xl) 60 mg DAILY PO Last administered on 02/20/17 08:39 ; Admin Dose 60 MG; Start 02/12/17 at 09:00 Zolpidem Tartrate (Ambien) 5 mg QHS PRN PO INSOMNIA; Start 02/11/17 at 13:00 Acetaminophen/ Hydrocodone Bitart ([place] (5/325)) 1 tab Q4H PRN PO PAIN Last administered on 02/20/17 08:53; Admin Dose 1 TAB; Start 02/11/17 at 17:00 Clonidine (Catapres) 0.1 mg Q6H PRN PO ELEVATED SYSTOLIC BP Last administered on 02/16/17 19:47; Admin Dose 0.1 MG; Start 02/12/17 at 01:30 Epoetin Jorge Luis (Epogen (Esrd)) 4,000 units MoWeFr@17 SC Last administered on 17:48; Admin Dose 4,000 UNITS; Start 02/12/17 at 17:00 Senna (Senokot) 2 tab BID PO Last administered on 02/19/17 20:18; Admin Dose 2 TAB; Start 02/13/17 at 09:00 Metoclopramide HCl (Reglan) 5 mg Q6H PRN IV N/V Last administered on 03:35; Admin Dose 5 MG; Start 02/13/17 at 03:30 Docusate Sodium (Colace) 100 mg BID PRN PO CONSTIPATION Last administered on 15:02; Admin Dose 100 MG; Start 02/13/17 at 13:30 Bisacodyl (Dulcolax) 10 mg DAILY PRN PO CONSTIPATION Last administered on 02/17 15:02; Admin Dose 10 MG; Start 02/13/17 at 13:30 Magnesium Hydroxide (Milk Of Mag) 30 ml BID PRN PO CONSTIPATION Last administered on 02/18/17 08:20; Admin Dose 30 ML; Start 02/14/17 at 13:30 Ondansetron HCl (Zofran Inj) 4 mg Q4H PRN IV NAUSEA AND/OR VOMITING; Start at 07:30 Doxycycline Hyclate (Vibramycin) 100 mg BID PO Last administered on 02/20/17 08:40; Admin Dose 100 MG; Start 02/17/17 at 21:00 Hydrocortisone (Anusol-Hc Supp) 25 mg TID PRN [place] HEMORROID PAIN/ITCHING; Start 02/17/17 at 18:00 Lactobacillus Acidophilus/ Rhamnosus (Culturelle) 1 cap BID PO Last administered on 02/19/17 20:18; Admin Dose 1 CAP; Start 02/18/17 at 21:00 IHSAN SULLIVAN Feb 20, 2017 16:11
[2017-02-20] MEDS ORDERED: NA POLYST SULFON 15 GM/60 ML BTL PO ONE (16:30)
[2017-02-20] MEDS: morphine 4 MG/ML VIAL IV PRN (17:12)
[2017-02-20] MEDS: ONDANSETRON 4 MG INJ IV PRN (17:30)
[2017-02-20] MEDS: ATORVASTATIN 40 MG TAB PO SCH (20:15)
[2017-02-20] MEDS: morphine (ER) 15 MG TAB PO SCH (20:55)
--- NOTE | 2017-02-20 22:17 | CONS ---
Date/Time of Note Date/Time of Note DATE: 02/20/17 TIME: 22:16 Consult Date/Type/Reason Admit Date/Time Feb 10, 2017 at 23:00 Initial Consult Date 02/11/17 Type of Consultation: ID Ordering Provider: POLY THRASHER MD Objective Vital Signs Date Time Temp Pulse Resp B/P Pulse Ox O2 Delivery O2 Flow Rate FiO2 02/20/17 21:00 72 115/63 96 Room Air 02/20/17 20:08 98.2 16 Intake and Output 02/19/17 02/19/17 02/20/17 15:00 23:00 07:00 Intake Total 200 ml 400 ml 120 ml Output Total 2600 ml Balance -2400 ml 400 ml 120 ml Results/Medications Result Diagram: 02/20/17 0653 02/20/17 0653 Results 24 hrs Laboratory Tests Test 02/20/17 06:53 02/20/17 08:18 02/20/17 12:35 02/20/17 17:37 White Blood Count 5.6 # Red Blood Count 3.28 L Hemoglobin 8.8 L Hematocrit 28.6 L Mean Corpuscular Volume 87.2 Mean Corpuscular Hemoglobin 26.8 L Mean Corpuscular Hemoglobin Concent 30.8 L Red Cell Distribution Width 17.5 H Platelet Count 278 Mean Platelet Volume 10.1 Neutrophils % 69.2 Lymphocytes % 11.4 L Monocytes % 16.5 H Eosinophils % 1.6 Basophils % 1.1 Nucleated Red Blood Cells % 0.0 Neutrophils # 3.9 Lymphocytes # 0.6 L Monocytes # 0.9 Eosinophils # 0.1 Basophils # 0.1 Nucleated Red Blood Cells # 0.0 Sodium Level 139 Potassium Level 5.3 H Chloride Level 98 Carbon Dioxide Level 30 Anion Gap 16 Blood Urea Nitrogen 35 H Creatinine 7.89 H Glucose Level 78 # Calcium Level 7.8 L Bedside Glucose 88 76 95 Test 02/20/17 20:18 Bedside Glucose 174 Medications Current Medications Morphine Sulfate (morphine) 2 mg Q4H PRN IV pain Last administered on 03:43; Admin Dose 2 MG; Start 02/11/17 at 01:30 Ondansetron HCl (Zofran Inj) 4 mg Q6H PRN IV NAUSEA AND/OR VOMITING Last administered on 02/20/17 17:30; Admin Dose 4 MG; Start 02/11/17 at 01:30 Diagnostic Test (Pha) (Accu-Chek) 1 ea 02 XX Last administered on 02/13/17 01 :35; Admin Dose 1 EA; Start 02/11/17 at 02:00 Miscellaneous Information 1 ea NOTE XX ; Start 02/11/17 at 02:00 Glucose (Glutose) 15 gm Q15M PRN PO DECREASED GLUCOSE; Start 02/11/17 at 02:00 Glucose (Glutose) 22.5 gm Q15M PRN PO DECREASED GLUCOSE; Start 02/11/17 at 02: 00 Dextrose (D50w Syringe) 25 ml Q15M PRN IV DECREASED GLUCOSE; Start 02/11/17 at 02:00 Dextrose (D50w Syringe) 50 ml Q15M PRN IV DECREASED GLUCOSE; Start 02/11/17 at 02:00 Glucagon (Glucagen) 1 mg Q15M PRN IM DECREASED GLUCOSE; Start 02/11/17 at 02: 00 Glucose (Glutose) 15 gm Q15M PRN BUCCAL DECREASED GLUCOSE; Start 02/11/17 at 02:00 Amlodipine Besylate (Norvasc) 5 mg BID PO Last administered on 02/20/17 08:38 ; Admin Dose 5 MG; Start 02/11/17 at 21:00 Atorvastatin Calcium (Lipitor) 40 mg HS PO Last administered on 02/20/17 20: 15; Admin Dose 40 MG; Start 02/11/17 at 21:00 Cinacalcet (Sensipar) 30 mg BID PO Last administered on 02/20/17 20:15; Admin Dose 30 MG; Start 02/11/17 at 21:00 Clopidogrel Bisulfate (plaVIX) 75 mg DAILY PO Last administered on 02/20/17 08:37; Admin Dose 75 MG; Start 02/12/17 at 09:00 Losartan Potassium (Cozaar) 25 mg DAILY PO Last administered on 02/20/17 08: 36; Admin Dose 25 MG; Start 02/12/17 at 09:00 Metoprolol Succinate (Toprol Xl) 25 mg DAILY PO Last administered on 08:54; Admin Dose 25 MG; Start 02/12/17 at 09:00 Nifedipine (Procardia Xl) 60 mg DAILY PO Last administered on 02/20/17 08:39 ; Admin Dose 60 MG; Start 02/12/17 at 09:00 Zolpidem Tartrate (Ambien) 5 mg QHS PRN PO INSOMNIA; Start 02/11/17 at 13:00 Acetaminophen/ Hydrocodone Bitart ([place] (5/325)) 1 tab Q4H PRN PO PAIN Last administered on 02/20/17 08:53; Admin Dose 1 TAB; Start 02/11/17 at 17:00 Clonidine (Catapres) 0.1 mg Q6H PRN PO ELEVATED SYSTOLIC BP Last administered on 02/16/17 19:47; Admin Dose 0.1 MG; Start 02/12/17 at 01:30 Epoetin Jorge Luis (Epogen (Esrd)) 4,000 units MoWeFr@17 SC Last administered on 17:48; Admin Dose 4,000 UNITS; Start 02/12/17 at 17:00 Senna (Senokot) 2 tab BID PO Last administered on 02/19/17 20:18; Admin Dose 2 TAB; Start 02/13/17 at 09:00 Metoclopramide HCl (Reglan) 5 mg Q6H PRN IV N/V Last administered on 03:35; Admin Dose 5 MG; Start 02/13/17 at 03:30 Docusate Sodium (Colace) 100 mg BID PRN PO CONSTIPATION Last administered on 15:02; Admin Dose 100 MG; Start 02/13/17 at 13:30 Bisacodyl (Dulcolax) 10 mg DAILY PRN PO CONSTIPATION Last administered on 02/17 15:02; Admin Dose 10 MG; Start 02/13/17 at 13:30 Magnesium Hydroxide (Milk Of Mag) 30 ml BID PRN PO CONSTIPATION Last administered on 02/18/17 08:20; Admin Dose 30 ML; Start 02/14/17 at 13:30 Ondansetron HCl (Zofran Inj) 4 mg Q4H PRN IV NAUSEA AND/OR VOMITING; Start at 07:30 Doxycycline Hyclate (Vibramycin) 100 mg BID PO Last administered on 02/20/17 20:15; Admin Dose 100 MG; Start 02/17/17 at 21:00 Hydrocortisone (Anusol-Hc Supp) 25 mg TID PRN [place] HEMORROID PAIN/ITCHING; Start 02/17/17 at 18:00 Lactobacillus Acidophilus/ Rhamnosus (Culturelle) 1 cap BID PO Last administered on 02/20/17 20:15; Admin Dose 1 CAP; Start 02/18/17 at 21:00 Morphine Sulfate (Ms Contin (Er)) 15 mg BID PO Last administered on 02/20/17 20:55; Admin Dose 15 MG; Start 02/20/17 at 21:00 Morphine Sulfate (morphine) 4 mg Q3H PRN IV PAIN LEVEL 7-10 Last administered on 02/20/17 17:12; Admin Dose 4 MG; Start 02/20/17 at 16:30 Assessment/Plan Chief Complaint/Hosp Course SUBJECTIVE: No fevers, awake, looks comfortable. INDWELLINGS: Left upper extremity AV fistula. MICROBIOLOGY: Blood cultures had been negative. ANTIMICROBIALS: Doxycycline PHYSICAL EXAMINATION: GENERAL: Well-developed, chronically ill-appearing, elderly man in no distress. HEENT: Head atraumatic, normocephalic. Sclerae anicteric. Buccal mucosa dry. NECK: Supple. CHEST: Rise symmetrical. Breath sounds diminished to bases. HEART: S1, S2. ABDOMEN: Soft. Bowel tones present. EXTREMITIES: Left lower extremity gangrene. ASSESSMENT: 1. Left lower extremity dry gangrene. 2. Peripheral vascular disease. 3. End-stage renal disease, hemodialysis dependent. 4. Hypertension. 5. Constipation PLAN: The patient remains unchanged. Continue present care, HD per renal, podiatry and vascular recommendations. DW staff DAYSI Zaragoza Problems: SHITAL MCKEON NP Feb 20, 2017 22:17
[2017-02-20] MEDS: ZOLPIDEM 5 MG TAB PO PRN (22:45)
[2017-02-21] VITALS (14 sets, daily range): BP systolic 105–160; BP diastolic 58–80; PULSE 67–86; RESP 18
[2017-02-21] MEDS: ACCU-CHEK XX SCH (02:00)
[2017-02-21 05:58] LABS: BASOPHIL # 0.1 10^3/ul (0.0-0.1); BASOPHILS % 1.1 % (0.0-2.0); EOSINOPHILS # 0.2 10^3/ul (0.0-0.5); EOSINOPHILS % 2.9 % (0.0-7.0); HEMATOCRIT 27.8 % (42.0-52.0); HEMOGLOBIN 8.5 g/dl (14.0-18.0); LYMPHOCYTES # 0.7 10^3/ul (0.8-2.9); LYMPHOCYTES % 10.1 % (15.0-51.0); MEAN CORPUSCULAR HEMOGLOBIN 26.6 pg (29.0-33.0); MEAN CORPUSCULAR HGB CONC 30.6 g/dl (32.0-37.0); MEAN CORPUSCULAR VOLUME 86.9 fl (82.0-101.0); MEAN PLATELET VOLUME 9.8 fl (7.4-10.4); MONOCYTES % 14.5 % (0.0-11.0); NEUTROPHIL # 4.7 10^3/ul (1.6-7.5); NEUTROPHILS % 70.9 % (39.0-77.0); PLATELET COUNT 279 10^3/UL (140-415); RED CELL DISTRIBUTION WIDTH 17.6 % (11.5-14.5); WHITE BLOOD COUNT 6.6 10^3/ul (4.8-10.8)
[2017-02-21 06:35] LABS: CALCIUM 7.2 mg/dl (8.4-10.2); CREATININE 9.76 mg/dl (0.61-1.24); POTASSIUM 5.8 mmol/L (3.5-5.1)
[2017-02-21] MEDS: morphine 4 MG/ML VIAL IV PRN ×2 (06:38→12:46)
[2017-02-21] MEDS: ONDANSETRON 4 MG INJ IV PRN (06:38)
--- NOTE | 2017-02-21 06:45 | CONS ---
Date/Time of Note Date/Time of Note DATE: 02/21/17 TIME: 06:44 Assessment/Plan Assessment/Plan Additional Assessment/Plan 1) Blindness Status: Chronic (2) Diabetes, polyneuropathy Status: Chronic Qualifiers: Diabetes mellitus type: type 2 Qualified Code: E11.42 - Diabetic polyneuropathy associated with type 2 diabetes mellitus (3) Peripheral vascular disease (4) Toe cyanosis Status: Acute Assessment/Plan esrd had hd yesterday mwf schedule cont plan [id number] no change cont plan [id number] S/p angio, S/p HD [id number] HD tomorrow, MWF, probiotic ordered. [id number] s/p HD Cont MWF, Cont current treatment and plan. [id number] HD today, Cont current treatment and plan Consultation Date/Type/Reason Admit Date/Time Feb 10, 2017 at 23:00 Initial Consult Date 02/11/17 Type of Consultation: Renal Referring Provider: POLY THRASHER MD Exam/Review of Systems Vital Signs Vitals Vital Signs Date Time Temp Pulse Resp B/P Pulse Ox O2 Delivery O2 Flow Rate FiO2 02/21/17 02:44 98.6 70 18 119/58 92 02/20/17 21:00 Room Air Exam Constitutional: No distress ENMT: mucosa pink and moist Neck: No jvd Respiratory: clear to auscultation Cardiovascular: regular rate and rhythm, No edema Gastrointestinal: non-tender, soft Extremities: No edema Neurological: No lethargic Skin: No diaphoresis Results Result Diagram: 02/21/17 0459 02/20/17 0653 Results 24 hrs Laboratory Tests Test 02/20/17 06:53 02/20/17 08:18 02/20/17 12:35 02/20/17 17:37 White Blood Count 5.6 # Red Blood Count 3.28 L Hemoglobin 8.8 L Hematocrit 28.6 L Mean Corpuscular Volume 87.2 Mean Corpuscular Hemoglobin 26.8 L Mean Corpuscular Hemoglobin Concent 30.8 L Red Cell Distribution Width 17.5 H Platelet Count 278 Mean Platelet Volume 10.1 Neutrophils % 69.2 Lymphocytes % 11.4 L Monocytes % 16.5 H Eosinophils % 1.6 Basophils % 1.1 Nucleated Red Blood Cells % 0.0 Neutrophils # 3.9 Lymphocytes # 0.6 L Monocytes # 0.9 Eosinophils # 0.1 Basophils # 0.1 Nucleated Red Blood Cells # 0.0 Sodium Level 139 Potassium Level 5.3 H Chloride Level 98 Carbon Dioxide Level 30 Anion Gap 16 Blood Urea Nitrogen 35 H Creatinine 7.89 H Glucose Level 78 # Calcium Level 7.8 L Bedside Glucose 88 76 95 Test 02/20/17 20:18 02/21/17 04:59 Bedside Glucose 174 White Blood Count 6.6 Red Blood Count 3.20 L Hemoglobin 8.5 L Hematocrit 27.8 L Mean Corpuscular Volume 86.9 Mean Corpuscular Hemoglobin 26.6 L Mean Corpuscular Hemoglobin Concent 30.6 L Red Cell Distribution Width 17.6 H Platelet Count 279 Mean Platelet Volume 9.8 Neutrophils % 70.9 Lymphocytes % 10.1 L Monocytes % 14.5 H Eosinophils % 2.9 Basophils % 1.1 Nucleated Red Blood Cells % 0.0 Neutrophils # 4.7 Lymphocytes # 0.7 L Monocytes # 1.0 H Eosinophils # 0.2 Basophils # 0.1 Nucleated Red Blood Cells # 0.0 Medications Medications Current Medications Morphine Sulfate (morphine) 2 mg Q4H PRN IV pain Last administered on 03:43; Admin Dose 2 MG; Start 02/11/17 at 01:30 Ondansetron HCl (Zofran Inj) 4 mg Q6H PRN IV NAUSEA AND/OR VOMITING Last administered on 02/21/17 06:38; Admin Dose 4 MG; Start 02/11/17 at 01:30 Diagnostic Test (Pha) (Accu-Chek) 1 ea 02 XX Last administered on 02/13/17 01 :35; Admin Dose 1 EA; Start 02/11/17 at 02:00 Miscellaneous Information 1 ea NOTE XX ; Start 02/11/17 at 02:00 Glucose (Glutose) 15 gm Q15M PRN PO DECREASED GLUCOSE; Start 02/11/17 at 02:00 Glucose (Glutose) 22.5 gm Q15M PRN PO DECREASED GLUCOSE; Start 02/11/17 at 02: 00 Dextrose (D50w Syringe) 25 ml Q15M PRN IV DECREASED GLUCOSE; Start 02/11/17 at 02:00 Dextrose (D50w Syringe) 50 ml Q15M PRN IV DECREASED GLUCOSE; Start 02/11/17 at 02:00 Glucagon (Glucagen) 1 mg Q15M PRN IM DECREASED GLUCOSE; Start 02/11/17 at 02: 00 Glucose (Glutose) 15 gm Q15M PRN BUCCAL DECREASED GLUCOSE; Start 02/11/17 at 02:00 Amlodipine Besylate (Norvasc) 5 mg BID PO Last administered on 02/20/17 08:38 ; Admin Dose 5 MG; Start 02/11/17 at 21:00 Atorvastatin Calcium (Lipitor) 40 mg HS PO Last administered on 02/20/17 20: 15; Admin Dose 40 MG; Start 02/11/17 at 21:00 Cinacalcet (Sensipar) 30 mg BID PO Last administered on 02/20/17 20:15; Admin Dose 30 MG; Start 02/11/17 at 21:00 Clopidogrel Bisulfate (plaVIX) 75 mg DAILY PO Last administered on 02/20/17 08:37; Admin Dose 75 MG; Start 02/12/17 at 09:00 Losartan Potassium (Cozaar) 25 mg DAILY PO Last administered on 02/20/17 08: 36; Admin Dose 25 MG; Start 02/12/17 at 09:00 Metoprolol Succinate (Toprol Xl) 25 mg DAILY PO Last administered on 08:54; Admin Dose 25 MG; Start 02/12/17 at 09:00 Nifedipine (Procardia Xl) 60 mg DAILY PO Last administered on 02/20/17 08:39 ; Admin Dose 60 MG; Start 02/12/17 at 09:00 Zolpidem Tartrate (Ambien) 5 mg QHS PRN PO INSOMNIA Last administered on 22:45; Admin Dose 5 MG; Start 02/11/17 at 13:00 Acetaminophen/ Hydrocodone Bitart ([place] (5/325)) 1 tab Q4H PRN PO PAIN Last administered on 02/20/17 08:53; Admin Dose 1 TAB; Start 02/11/17 at 17:00 Clonidine (Catapres) 0.1 mg Q6H PRN PO ELEVATED SYSTOLIC BP Last administered on 02/16/17 19:47; Admin Dose 0.1 MG; Start 02/12/17 at 01:30 Epoetin Jorge Luis (Epogen (Esrd)) 4,000 units MoWeFr@17 SC Last administered on 17:48; Admin Dose 4,000 UNITS; Start 02/12/17 at 17:00 Senna (Senokot) 2 tab BID PO Last administered on 02/19/17 20:18; Admin Dose 2 TAB; Start 02/13/17 at 09:00 Metoclopramide HCl (Reglan) 5 mg Q6H PRN IV N/V Last administered on 03:35; Admin Dose 5 MG; Start 02/13/17 at 03:30 Docusate Sodium (Colace) 100 mg BID PRN PO CONSTIPATION Last administered on 15:02; Admin Dose 100 MG; Start 02/13/17 at 13:30 Bisacodyl (Dulcolax) 10 mg DAILY PRN PO CONSTIPATION Last administered on 02/17 15:02; Admin Dose 10 MG; Start 02/13/17 at 13:30 Magnesium Hydroxide (Milk Of Mag) 30 ml BID PRN PO CONSTIPATION Last administered on 02/18/17 08:20; Admin Dose 30 ML; Start 02/14/17 at 13:30 Ondansetron HCl (Zofran Inj) 4 mg Q4H PRN IV NAUSEA AND/OR VOMITING; Start at 07:30 Doxycycline Hyclate (Vibramycin) 100 mg BID PO Last administered on 02/20/17 20:15; Admin Dose 100 MG; Start 02/17/17 at 21:00 Hydrocortisone (Anusol-Hc Supp) 25 mg TID PRN [place] HEMORROID PAIN/ITCHING; Start 02/17/17 at 18:00 Lactobacillus Acidophilus/ Rhamnosus (Culturelle) 1 cap BID PO Last administered on 02/20/17 20:15; Admin Dose 1 CAP; Start 02/18/17 at 21:00 Morphine Sulfate (Ms Contin (Er)) 15 mg BID PO Last administered on 02/20/17 20:55; Admin Dose 15 MG; Start 02/20/17 at 21:00 Morphine Sulfate (morphine) 4 mg Q3H PRN IV PAIN LEVEL 7-10 Last administered on 02/21/17 06:38; Admin Dose 4 MG; Start 02/20/17 at 16:30 PIPER FELIX MD Feb 21, 2017 06:45
[2017-02-21] MEDS: INSULIN ASPART [NOVOLOG] 3 ML PEN SC SCH ×4 (07:52→20:29)
[2017-02-21] MEDS: CINACALCET 30 MG TAB PO SCH ×2 (08:43→20:28)
[2017-02-21] MEDS: SEVELAMER 800 MG TAB PO SCH ×3 (08:43→17:44)
[2017-02-21] MEDS: DOXYCYCLINE 100 MG TAB PO SCH ×2 (08:43→20:27)
[2017-02-21] MEDS: CLOPIDOGREL 75 MG TAB PO SCH (08:44)
[2017-02-21] MEDS: CALCIUM ACETATE 667 MG CAP PO SCH ×3 (08:44→17:44)
[2017-02-21] MEDS: LACTOBACILLUS RHAMNOSUS CAP PO SCH ×2 (08:44→20:27)
[2017-02-21] MEDS: LOSARTAN 25 MG TAB PO SCH ×2 (08:47→14:18)
[2017-02-21] MEDS: NIFEdipine (XL) 60 MG TAB PO SCH ×2 (08:47→14:18)
[2017-02-21] MEDS: AMLODIPINE 5 MG TAB PO SCH ×2 (08:47→20:28)
[2017-02-21] MEDS: METOPROLOL (XL) 25 MG TAB PO SCH ×2 (08:48→14:19)
[2017-02-21] MEDS: SENNA TAB PO SCH ×2 (08:48→20:31)
[2017-02-21] MEDS: morphine (ER) 15 MG TAB PO SCH ×2 (08:55→20:28)
--- NOTE | 2017-02-21 12:50 | CONS ---
Date/Time of Note Date/Time of Note DATE: 02/21/17 TIME: 12:50 Consult Date/Type/Reason Admit Date/Time Feb 10, 2017 at 23:00 Initial Consult Date 02/11/17 Type of Consultation: ID Ordering Provider: POLY THRASHER MD Objective Vital Signs Date Time Temp Pulse Resp B/P Pulse Ox O2 Delivery O2 Flow Rate FiO2 02/21/17 11:35 70 02/21/17 08:20 18 02/21/17 07:38 98.8 138/65 99 02/20/17 21:00 Room Air Intake and Output 02/20/17 02/20/17 02/21/17 15:00 23:00 07:00 Intake Total 360 ml Balance 360 ml Results/Medications Result Diagram: 02/21/17 0459 02/21/17 0459 Results 24 hrs Laboratory Tests Test 02/20/17 17:37 02/20/17 20:18 02/21/17 04:59 02/21/17 07:51 Bedside Glucose 95 174 124 White Blood Count 6.6 Red Blood Count 3.20 L Hemoglobin 8.5 L Hematocrit 27.8 L Mean Corpuscular Volume 86.9 Mean Corpuscular Hemoglobin 26.6 L Mean Corpuscular Hemoglobin Concent 30.6 L Red Cell Distribution Width 17.6 H Platelet Count 279 Mean Platelet Volume 9.8 Neutrophils % 70.9 Lymphocytes % 10.1 L Monocytes % 14.5 H Eosinophils % 2.9 Basophils % 1.1 Nucleated Red Blood Cells % 0.0 Neutrophils # 4.7 Lymphocytes # 0.7 L Monocytes # 1.0 H Eosinophils # 0.2 Basophils # 0.1 Nucleated Red Blood Cells # 0.0 Sodium Level 141 Potassium Level 5.8 H Chloride Level 98 Carbon Dioxide Level 31 Anion Gap 18 H Blood Urea Nitrogen 45 H Creatinine 9.76 H Glucose Level 92 Calcium Level 7.2 L Test 02/21/17 12:26 Bedside Glucose 101 Medications Current Medications Morphine Sulfate (morphine) 2 mg Q4H PRN IV pain Last administered on 03:43; Admin Dose 2 MG; Start 02/11/17 at 01:30 Ondansetron HCl (Zofran Inj) 4 mg Q6H PRN IV NAUSEA AND/OR VOMITING Last administered on 02/21/17 06:38; Admin Dose 4 MG; Start 02/11/17 at 01:30 Diagnostic Test (Pha) (Accu-Chek) 1 ea 02 XX Last administered on 02/13/17 01 :35; Admin Dose 1 EA; Start 02/11/17 at 02:00 Miscellaneous Information 1 ea NOTE XX ; Start 02/11/17 at 02:00 Glucose (Glutose) 15 gm Q15M PRN PO DECREASED GLUCOSE; Start 02/11/17 at 02:00 Glucose (Glutose) 22.5 gm Q15M PRN PO DECREASED GLUCOSE; Start 02/11/17 at 02: 00 Dextrose (D50w Syringe) 25 ml Q15M PRN IV DECREASED GLUCOSE; Start 02/11/17 at 02:00 Dextrose (D50w Syringe) 50 ml Q15M PRN IV DECREASED GLUCOSE; Start 02/11/17 at 02:00 Glucagon (Glucagen) 1 mg Q15M PRN IM DECREASED GLUCOSE; Start 02/11/17 at 02: 00 Glucose (Glutose) 15 gm Q15M PRN BUCCAL DECREASED GLUCOSE; Start 02/11/17 at 02:00 Amlodipine Besylate (Norvasc) 5 mg BID PO Last administered on 02/20/17 08:38 ; Admin Dose 5 MG; Start 02/11/17 at 21:00 Atorvastatin Calcium (Lipitor) 40 mg HS PO Last administered on 02/20/17 20: 15; Admin Dose 40 MG; Start 02/11/17 at 21:00 Cinacalcet (Sensipar) 30 mg BID PO Last administered on 02/21/17 08:43; Admin Dose 30 MG; Start 02/11/17 at 21:00 Clopidogrel Bisulfate (plaVIX) 75 mg DAILY PO Last administered on 02/21/17 08:44; Admin Dose 75 MG; Start 02/12/17 at 09:00 Losartan Potassium (Cozaar) 25 mg DAILY PO Last administered on 02/20/17 08: 36; Admin Dose 25 MG; Start 02/12/17 at 09:00 Metoprolol Succinate (Toprol Xl) 25 mg DAILY PO Last administered on 08:54; Admin Dose 25 MG; Start 02/12/17 at 09:00 Nifedipine (Procardia Xl) 60 mg DAILY PO Last administered on 02/20/17 08:39 ; Admin Dose 60 MG; Start 02/12/17 at 09:00 Zolpidem Tartrate (Ambien) 5 mg QHS PRN PO INSOMNIA Last administered on 22:45; Admin Dose 5 MG; Start 02/11/17 at 13:00 Acetaminophen/ Hydrocodone Bitart ([place] (5/325)) 1 tab Q4H PRN PO PAIN Last administered on 02/20/17 08:53; Admin Dose 1 TAB; Start 02/11/17 at 17:00 Clonidine (Catapres) 0.1 mg Q6H PRN PO ELEVATED SYSTOLIC BP Last administered on 02/16/17 19:47; Admin Dose 0.1 MG; Start 02/12/17 at 01:30 Epoetin Jorge Luis (Epogen (Esrd)) 4,000 units MoWeFr@17 SC Last administered on 17:48; Admin Dose 4,000 UNITS; Start 02/12/17 at 17:00 Senna (Senokot) 2 tab BID PO Last administered on 02/19/17 20:18; Admin Dose 2 TAB; Start 02/13/17 at 09:00 Metoclopramide HCl (Reglan) 5 mg Q6H PRN IV N/V Last administered on 03:35; Admin Dose 5 MG; Start 02/13/17 at 03:30 Docusate Sodium (Colace) 100 mg BID PRN PO CONSTIPATION Last administered on 15:02; Admin Dose 100 MG; Start 02/13/17 at 13:30 Bisacodyl (Dulcolax) 10 mg DAILY PRN PO CONSTIPATION Last administered on 02/17 15:02; Admin Dose 10 MG; Start 02/13/17 at 13:30 Magnesium Hydroxide (Milk Of Mag) 30 ml BID PRN PO CONSTIPATION Last administered on 02/18/17 08:20; Admin Dose 30 ML; Start 02/14/17 at 13:30 Ondansetron HCl (Zofran Inj) 4 mg Q4H PRN IV NAUSEA AND/OR VOMITING; Start at 07:30 Doxycycline Hyclate (Vibramycin) 100 mg BID PO Last administered on 02/21/17 08:43; Admin Dose 100 MG; Start 02/17/17 at 21:00 Hydrocortisone (Anusol-Hc Supp) 25 mg TID PRN [place] HEMORROID PAIN/ITCHING; Start 02/17/17 at 18:00 Lactobacillus Acidophilus/ Rhamnosus (Culturelle) 1 cap BID PO Last administered on 02/21/17 08:44; Admin Dose 1 CAP; Start 02/18/17 at 21:00 Morphine Sulfate (Ms Contin (Er)) 15 mg BID PO Last administered on 02/21/17 08:55; Admin Dose 15 MG; Start 02/20/17 at 21:00 Morphine Sulfate (morphine) 4 mg Q3H PRN IV PAIN LEVEL 7-10 Last administered on 02/21/17 06:38; Admin Dose 4 MG; Start 02/20/17 at 16:30 Assessment/Plan Chief Complaint/Hosp Course SUBJECTIVE: No events, in HD, no fevers INDWELLINGS: Left upper extremity AV fistula. MICROBIOLOGY: Blood cultures had been negative. ANTIMICROBIALS: Doxycycline PHYSICAL EXAMINATION: GENERAL: Well-developed, chronically ill-appearing, elderly man in no distress. HEENT: Head atraumatic, normocephalic. Sclerae anicteric. Buccal mucosa dry. NECK: Supple. CHEST: Rise symmetrical. Breath sounds diminished to bases. HEART: S1, S2. ABDOMEN: Soft. Bowel tones present. EXTREMITIES: Left lower extremity gangrene. ASSESSMENT: 1. Left lower extremity dry gangrene. 2. Peripheral vascular disease. 3. End-stage renal disease, hemodialysis dependent. 4. Hypertension. 5. Constipation PLAN: The patient remains unchanged. Continue present care, HD per renal, podiatry and vascular recommendations. DW staff DAYSI Zaragoza Problems: SHITAL MCKEON NP Feb 21, 2017 12:50
[2017-02-21] MEDS: HYDROCODONE/APAP (5/325) TAB PO PRN (14:34)
--- NOTE | 2017-02-21 16:56 | PN ---
Date/Time of Note Date/Time of Note DATE: 02/21/17 TIME: 16:55 Assessment/Plan VTE Prophylaxis VTE Prophylaxis Intervention: SCD's Lines/Catheters IV [facility]from [facility] [place] [facility] Urinary Cath still in place: No Assessment/Plan Chief Complaint/Hosp Course Patient complained of significant left lower extremity pain requiring IV morphine. Patient was hyperkalemia today underwent urgent hemodialysis earlier. Will check BMP tomorrow. Patient can be discharged home when pain is better controlled. Assessment/Plan - Hyperkalemia, s/p HD - Left foot multiple gangrenous wounds. Dr. Zaragoza is following in vascular surgery consultation, Dr. Jackman is following in podiatry consultation. Dr. Tobias is following in ID consultation. Continue antibiotics per ID , continue current wound care. - End-stage renal disease, hemodialysis dependent. Dr. Newby is following in nephrology consultation. Continue on hemodialysis. - Hypertension. Continue home antihypertensive medication. Monitor blood pressure. - CAD - Permanent Pacemaker - Legally blind status. - Anemia of chronic disease. - Severe peripheral vascular disease. s/p angio with notion of severe infrapopliteal disease and pedal disease. Further recommendations based on clinical course. Plan of care discussed with Dr. French. Problems: Exam/Review of Systems Vital Signs Vitals Vital Signs Date Time Temp Pulse Resp B/P Pulse Ox O2 Delivery O2 Flow Rate FiO2 02/21/17 14:31 97.9 18 160/72 92 02/21/17 14:00 70 02/20/17 21:00 Room Air Intake and Output 02/20/17 02/20/17 02/21/17 15:00 23:00 07:00 Intake Total 360 ml Balance 360 ml Exam Constitutional: alert, oriented Head: normocephalic Neck: supple Respiratory: normal air movement Cardiovascular: nl pulses, other (Permanent pacemaker right groin) Gastrointestinal: non-tender, soft Extremities: normal pulses Results Result Diagram: 02/21/17 0459 02/21/17 0459 Results 24 hrs Laboratory Tests Test 02/20/17 17:37 02/20/17 20:18 02/21/17 04:59 02/21/17 07:51 Bedside Glucose 95 174 124 White Blood Count 6.6 Red Blood Count 3.20 L Hemoglobin 8.5 L Hematocrit 27.8 L Mean Corpuscular Volume 86.9 Mean Corpuscular Hemoglobin 26.6 L Mean Corpuscular Hemoglobin Concent 30.6 L Red Cell Distribution Width 17.6 H Platelet Count 279 Mean Platelet Volume 9.8 Neutrophils % 70.9 Lymphocytes % 10.1 L Monocytes % 14.5 H Eosinophils % 2.9 Basophils % 1.1 Nucleated Red Blood Cells % 0.0 Neutrophils # 4.7 Lymphocytes # 0.7 L Monocytes # 1.0 H Eosinophils # 0.2 Basophils # 0.1 Nucleated Red Blood Cells # 0.0 Sodium Level 141 Potassium Level 5.8 H Chloride Level 98 Carbon Dioxide Level 31 Anion Gap 18 H Blood Urea Nitrogen 45 H Creatinine 9.76 H Glucose Level 92 Calcium Level 7.2 L Test 02/21/17 12:26 Bedside Glucose 101 Medications Medications Current Medications Morphine Sulfate (morphine) 2 mg Q4H PRN IV pain Last administered on 03:43; Admin Dose 2 MG; Start 02/11/17 at 01:30 Ondansetron HCl (Zofran Inj) 4 mg Q6H PRN IV NAUSEA AND/OR VOMITING Last administered on 02/21/17 06:38; Admin Dose 4 MG; Start 02/11/17 at 01:30 Diagnostic Test (Pha) (Accu-Chek) 1 ea 02 XX Last administered on 02/13/17 01 :35; Admin Dose 1 EA; Start 02/11/17 at 02:00 Miscellaneous Information 1 ea NOTE XX ; Start 02/11/17 at 02:00 Glucose (Glutose) 15 gm Q15M PRN PO DECREASED GLUCOSE; Start 02/11/17 at 02:00 Glucose (Glutose) 22.5 gm Q15M PRN PO DECREASED GLUCOSE; Start 02/11/17 at 02: 00 Dextrose (D50w Syringe) 25 ml Q15M PRN IV DECREASED GLUCOSE; Start 02/11/17 at 02:00 Dextrose (D50w Syringe) 50 ml Q15M PRN IV DECREASED GLUCOSE; Start 02/11/17 at 02:00 Glucagon (Glucagen) 1 mg Q15M PRN IM DECREASED GLUCOSE; Start 02/11/17 at 02: 00 Glucose (Glutose) 15 gm Q15M PRN BUCCAL DECREASED GLUCOSE; Start 02/11/17 at 02:00 Amlodipine Besylate (Norvasc) 5 mg BID PO Last administered on 02/20/17 08:38 ; Admin Dose 5 MG; Start 02/11/17 at 21:00 Atorvastatin Calcium (Lipitor) 40 mg HS PO Last administered on 02/20/17 20: 15; Admin Dose 40 MG; Start 02/11/17 at 21:00 Cinacalcet (Sensipar) 30 mg BID PO Last administered on 02/21/17 08:43; Admin Dose 30 MG; Start 02/11/17 at 21:00 Clopidogrel Bisulfate (plaVIX) 75 mg DAILY PO Last administered on 02/21/17 08:44; Admin Dose 75 MG; Start 02/12/17 at 09:00 Losartan Potassium (Cozaar) 25 mg DAILY PO Last administered on 02/20/17 08: 36; Admin Dose 25 MG; Start 02/12/17 at 09:00 Metoprolol Succinate (Toprol Xl) 25 mg DAILY PO Last administered on 08:54; Admin Dose 25 MG; Start 02/12/17 at 09:00 Nifedipine (Procardia Xl) 60 mg DAILY PO Last administered on 02/20/17 08:39 ; Admin Dose 60 MG; Start 02/12/17 at 09:00 Zolpidem Tartrate (Ambien) 5 mg QHS PRN PO INSOMNIA Last administered on 22:45; Admin Dose 5 MG; Start 02/11/17 at 13:00 Acetaminophen/ Hydrocodone Bitart ([place] (5/325)) 1 tab Q4H PRN PO PAIN Last administered on 02/21/17 14:34; Admin Dose 1 TAB; Start 02/11/17 at 17:00 Clonidine (Catapres) 0.1 mg Q6H PRN PO ELEVATED SYSTOLIC BP Last administered on 02/16/17 19:47; Admin Dose 0.1 MG; Start 02/12/17 at 01:30 Epoetin Jorge Luis (Epogen (Esrd)) 4,000 units MoWeFr@17 SC Last administered on 17:48; Admin Dose 4,000 UNITS; Start 02/12/17 at 17:00 Senna (Senokot) 2 tab BID PO Last administered on 02/19/17 20:18; Admin Dose 2 TAB; Start 02/13/17 at 09:00 Metoclopramide HCl (Reglan) 5 mg Q6H PRN IV N/V Last administered on 03:35; Admin Dose 5 MG; Start 02/13/17 at 03:30 Docusate Sodium (Colace) 100 mg BID PRN PO CONSTIPATION Last administered on 15:02; Admin Dose 100 MG; Start 02/13/17 at 13:30 Bisacodyl (Dulcolax) 10 mg DAILY PRN PO CONSTIPATION Last administered on 02/17 15:02; Admin Dose 10 MG; Start 02/13/17 at 13:30 Magnesium Hydroxide (Milk Of Mag) 30 ml BID PRN PO CONSTIPATION Last administered on 02/18/17 08:20; Admin Dose 30 ML; Start 02/14/17 at 13:30 Ondansetron HCl (Zofran Inj) 4 mg Q4H PRN IV NAUSEA AND/OR VOMITING; Start at 07:30 Doxycycline Hyclate (Vibramycin) 100 mg BID PO Last administered on 02/21/17 08:43; Admin Dose 100 MG; Start 02/17/17 at 21:00 Hydrocortisone (Anusol-Hc Supp) 25 mg TID PRN [place] HEMORROID PAIN/ITCHING; Start 02/17/17 at 18:00 Lactobacillus Acidophilus/ Rhamnosus (Culturelle) 1 cap BID PO Last administered on 02/21/17 08:44; Admin Dose 1 CAP; Start 02/18/17 at 21:00 Morphine Sulfate (Ms Contin (Er)) 15 mg BID PO Last administered on 02/21/17 08:55; Admin Dose 15 MG; Start 02/20/17 at 21:00 Morphine Sulfate (morphine) 4 mg Q3H PRN IV PAIN LEVEL 7-10 Last administered on 02/21/17 12:46; Admin Dose 4 MG; Start 02/20/17 at 16:30 VIV KING Feb 21, 2017 16:56
[2017-02-21] MEDS: EPOETIN 4000 UNITS/1 ML INJ (ESRD) SC SCH (17:51)
[2017-02-21] MEDS ORDERED: DIPHENHYDRAMINE 25 MG CAP PO PRN (18:30)
[2017-02-21] MEDS: ATORVASTATIN 40 MG TAB PO SCH (20:27)
[2017-02-21] MEDS: ZOLPIDEM 5 MG TAB PO PRN (23:14)
[2017-02-22] MEDS: ACCU-CHEK XX SCH (01:56)
[2017-02-22 02:07] VITALS: BP 158/71; RESP 18
[2017-02-22 06:26] LABS: BASOPHIL # 0.1 10^3/ul (0.0-0.1); BASOPHILS % 0.9 % (0.0-2.0); EOSINOPHILS # 0.2 10^3/ul (0.0-0.5); EOSINOPHILS % 2.6 % (0.0-7.0); HEMATOCRIT 29.1 % (42.0-52.0); LYMPHOCYTES # 0.7 10^3/ul (0.8-2.9); LYMPHOCYTES % 10.7 % (15.0-51.0); MEAN CORPUSCULAR HEMOGLOBIN 27.3 pg (29.0-33.0); MEAN CORPUSCULAR HGB CONC 30.9 g/dl (32.0-37.0); MEAN CORPUSCULAR VOLUME 88.2 fl (82.0-101.0); MEAN PLATELET VOLUME 10.1 fl (7.4-10.4); MONOCYTE # 1.1 10^3/ul (0.3-0.9); MONOCYTES % 16.5 % (0.0-11.0); NEUTROPHIL # 4.5 10^3/ul (1.6-7.5); PLATELET COUNT 272 10^3/UL (140-415); RED CELL DISTRIBUTION WIDTH 17.5 % (11.5-14.5); WHITE BLOOD COUNT 6.5 10^3/ul (4.8-10.8)
[2017-02-22 06:41] LABS: CREATININE 8.31 mg/dl (0.61-1.24); POTASSIUM 5.5 mmol/L (3.5-5.1)
[2017-02-22 07:32] VITALS: BP 150/70; RESP 18
[2017-02-22] MEDS: SEVELAMER 800 MG TAB PO SCH ×3 (08:01→17:14)
[2017-02-22] MEDS: CALCIUM ACETATE 667 MG CAP PO SCH ×3 (08:01→17:14)
[2017-02-22] MEDS: INSULIN ASPART [NOVOLOG] 3 ML PEN SC SCH ×4 (08:01→20:24)
[2017-02-22] MEDS: CINACALCET 30 MG TAB PO SCH ×2 (08:02→20:22)
[2017-02-22] MEDS: LACTOBACILLUS RHAMNOSUS CAP PO SCH ×2 (08:02→20:22)
[2017-02-22] MEDS: SENNA TAB PO SCH ×2 (08:03→20:24)
[2017-02-22] MEDS: CLOPIDOGREL 75 MG TAB PO SCH (08:03)
[2017-02-22] MEDS: NIFEdipine (XL) 60 MG TAB PO SCH (08:04)
[2017-02-22] MEDS: METOPROLOL (XL) 25 MG TAB PO SCH (08:04)
[2017-02-22] MEDS: AMLODIPINE 5 MG TAB PO SCH ×2 (08:05→20:23)
[2017-02-22] MEDS: LOSARTAN 25 MG TAB PO SCH (08:05)
[2017-02-22] MEDS: DOXYCYCLINE 100 MG TAB PO SCH ×2 (09:13→20:21)
[2017-02-22] MEDS: morphine (ER) 15 MG TAB PO SCH ×2 (09:14→20:22)
--- NOTE | 2017-02-22 13:38 | CONS ---
Date/Time of Note Date/Time of Note DATE: 02/22/17 TIME: 13:38 Consult Date/Type/Reason Admit Date/Time Feb 10, 2017 at 23:00 Initial Consult Date 02/11/17 Type of Consultation: ID Ordering Provider: POLY THRASHER MD Objective Vital Signs Date Time Temp Pulse Resp B/P Pulse Ox O2 Delivery O2 Flow Rate FiO2 02/22/17 07:32 98.3 74 18 150/70 97 02/20/17 21:00 Room Air Intake and Output 02/21/17 02/21/17 02/22/17 15:00 23:00 07:00 Intake Total 500 ml 680 ml Output Total 3000 ml Balance -2500 ml 680 ml Results/Medications Result Diagram: 02/22/17 0506 02/22/17 0506 Results 24 hrs Laboratory Tests Test 02/21/17 17:40 02/21/17 20:25 02/22/17 05:06 02/22/17 08:00 Bedside Glucose 203 131 77 White Blood Count 6.5 Red Blood Count 3.30 L Hemoglobin 9.0 L Hematocrit 29.1 L Mean Corpuscular Volume 88.2 Mean Corpuscular Hemoglobin 27.3 L Mean Corpuscular Hemoglobin Concent 30.9 L Red Cell Distribution Width 17.5 H Platelet Count 272 Mean Platelet Volume 10.1 Neutrophils % 69.0 Lymphocytes % 10.7 L Monocytes % 16.5 H Eosinophils % 2.6 Basophils % 0.9 Nucleated Red Blood Cells % 0.0 Neutrophils # 4.5 Lymphocytes # 0.7 L Monocytes # 1.1 H Eosinophils # 0.2 Basophils # 0.1 Nucleated Red Blood Cells # 0.0 Sodium Level 143 Potassium Level 5.5 H Chloride Level 99 Carbon Dioxide Level 34 H Anion Gap 16 Blood Urea Nitrogen 38 H Creatinine 8.31 H Glucose Level 73 Calcium Level 8.0 L Test 02/22/17 12:04 Bedside Glucose 98 Medications Current Medications Morphine Sulfate (morphine) 2 mg Q4H PRN IV pain Last administered on 03:43; Admin Dose 2 MG; Start 02/11/17 at 01:30 Ondansetron HCl (Zofran Inj) 4 mg Q6H PRN IV NAUSEA AND/OR VOMITING Last administered on 02/21/17 06:38; Admin Dose 4 MG; Start 02/11/17 at 01:30 Diagnostic Test (Pha) (Accu-Chek) 1 ea 02 XX Last administered on 02/13/17 01 :35; Admin Dose 1 EA; Start 02/11/17 at 02:00 Miscellaneous Information 1 ea NOTE XX ; Start 02/11/17 at 02:00 Glucose (Glutose) 15 gm Q15M PRN PO DECREASED GLUCOSE; Start 02/11/17 at 02:00 Glucose (Glutose) 22.5 gm Q15M PRN PO DECREASED GLUCOSE; Start 02/11/17 at 02: 00 Dextrose (D50w Syringe) 25 ml Q15M PRN IV DECREASED GLUCOSE; Start 02/11/17 at 02:00 Dextrose (D50w Syringe) 50 ml Q15M PRN IV DECREASED GLUCOSE; Start 02/11/17 at 02:00 Glucagon (Glucagen) 1 mg Q15M PRN IM DECREASED GLUCOSE; Start 02/11/17 at 02: 00 Glucose (Glutose) 15 gm Q15M PRN BUCCAL DECREASED GLUCOSE; Start 02/11/17 at 02:00 Amlodipine Besylate (Norvasc) 5 mg BID PO Last administered on 02/22/17 08:05 ; Admin Dose 5 MG; Start 02/11/17 at 21:00 Atorvastatin Calcium (Lipitor) 40 mg HS PO Last administered on 02/21/17 20: 27; Admin Dose 40 MG; Start 02/11/17 at 21:00 Cinacalcet (Sensipar) 30 mg BID PO Last administered on 02/22/17 08:02; Admin Dose 30 MG; Start 02/11/17 at 21:00 Clopidogrel Bisulfate (plaVIX) 75 mg DAILY PO Last administered on 02/22/17 08:03; Admin Dose 75 MG; Start 02/12/17 at 09:00 Losartan Potassium (Cozaar) 25 mg DAILY PO Last administered on 02/22/17 08: 05; Admin Dose 25 MG; Start 02/12/17 at 09:00 Metoprolol Succinate (Toprol Xl) 25 mg DAILY PO Last administered on 08:04; Admin Dose 25 MG; Start 02/12/17 at 09:00 Nifedipine (Procardia Xl) 60 mg DAILY PO Last administered on 02/22/17 08:04 ; Admin Dose 60 MG; Start 02/12/17 at 09:00 Zolpidem Tartrate (Ambien) 5 mg QHS PRN PO INSOMNIA Last administered on 23:14; Admin Dose 5 MG; Start 02/11/17 at 13:00 Acetaminophen/ Hydrocodone Bitart ([place] (5/325)) 1 tab Q4H PRN PO PAIN Last administered on 02/21/17 14:34; Admin Dose 1 TAB; Start 02/11/17 at 17:00 Clonidine (Catapres) 0.1 mg Q6H PRN PO ELEVATED SYSTOLIC BP Last administered on 02/16/17 19:47; Admin Dose 0.1 MG; Start 02/12/17 at 01:30 Epoetin Jorge Luis (Epogen (Esrd)) 4,000 units MoWeFr@17 SC Last administered on 17:51; Admin Dose 4,000 UNITS; Start 02/12/17 at 17:00 Senna (Senokot) 2 tab BID PO Last administered on 02/19/17 20:18; Admin Dose 2 TAB; Start 02/13/17 at 09:00 Metoclopramide HCl (Reglan) 5 mg Q6H PRN IV N/V Last administered on 03:35; Admin Dose 5 MG; Start 02/13/17 at 03:30 Docusate Sodium (Colace) 100 mg BID PRN PO CONSTIPATION Last administered on 15:02; Admin Dose 100 MG; Start 02/13/17 at 13:30 Bisacodyl (Dulcolax) 10 mg DAILY PRN PO CONSTIPATION Last administered on 02/17 15:02; Admin Dose 10 MG; Start 02/13/17 at 13:30 Magnesium Hydroxide (Milk Of Mag) 30 ml BID PRN PO CONSTIPATION Last administered on 02/18/17 08:20; Admin Dose 30 ML; Start 02/14/17 at 13:30 Ondansetron HCl (Zofran Inj) 4 mg Q4H PRN IV NAUSEA AND/OR VOMITING; Start at 07:30 Doxycycline Hyclate (Vibramycin) 100 mg BID PO Last administered on 02/22/17 09:13; Admin Dose 100 MG; Start 02/17/17 at 21:00 Hydrocortisone (Anusol-Hc Supp) 25 mg TID PRN [place] HEMORROID PAIN/ITCHING; Start 02/17/17 at 18:00 Lactobacillus Acidophilus/ Rhamnosus (Culturelle) 1 cap BID PO Last administered on 02/22/17 08:02; Admin Dose 1 CAP; Start 02/18/17 at 21:00 Morphine Sulfate (Ms Contin (Er)) 15 mg BID PO Last administered on 02/22/17 09:14; Admin Dose 15 MG; Start 02/20/17 at 21:00 Morphine Sulfate (morphine) 4 mg Q3H PRN IV PAIN LEVEL 7-10 Last administered on 02/21/17 12:46; Admin Dose 4 MG; Start 02/20/17 at 16:30 Diphenhydramine HCl (Benadryl) 25 mg Q6H PRN PO ITCHING; Start 02/21/17 at 18: 30 Assessment/Plan Chief Complaint/Hosp Course SUBJECTIVE: No events, awake, looks comfortable, no fevers INDWELLINGS: Left upper extremity AV fistula. MICROBIOLOGY: Blood cultures had been negative. ANTIMICROBIALS: Doxycycline PHYSICAL EXAMINATION: GENERAL: Well-developed, chronically ill-appearing, elderly man in no distress. HEENT: Head atraumatic, normocephalic. Sclerae anicteric. Buccal mucosa dry. NECK: Supple. CHEST: Rise symmetrical. Breath sounds diminished to bases. HEART: S1, S2. ABDOMEN: Soft. Bowel tones present. EXTREMITIES: Left lower extremity gangrene. ASSESSMENT: 1. Left lower extremity dry gangrene. 2. Peripheral vascular disease. 3. End-stage renal disease, hemodialysis dependent. 4. Hypertension. 5. Constipation PLAN: The patient remains unchanged. Continue present care, HD per renal, podiatry and vascular recommendations. staff Problems: SHITAL MCKEON NP Feb 22, 2017 13:38
[2017-02-22 13:54] VITALS: BP 159/68; RESP 18
--- NOTE | 2017-02-22 16:16 | PN ---
Date/Time of Note Date/Time of Note DATE: 02/22/17 TIME: 16:14 Assessment/Plan VTE Prophylaxis VTE Prophylaxis Intervention: other Lines/Catheters IV Catheter Type (from [facility]): Saline Lock Urinary Cath still in place: No Assessment/Plan Assessment/Plan - Hyperkalemia - Kayexalate 30 gm po x1.Per staff- patient refused to take Kayexalate. - am BMP - Left foot multiple gangrenous wounds. Dr. Zaragoza is following in vascular surgery consultation, Dr. Jackman is following in podiatry consultation. Dr. Tobias is following in ID consultation. Continue antibiotics per ID , continue current wound care. - End-stage renal disease, hemodialysis dependent. Dr. Newby is following in nephrology consultation. Continue on hemodialysis. - Hypertension. Continue home antihypertensive medication. Monitor blood pressure. - CAD - Permanent Pacemaker - Legally blind status. - Anemia of chronic disease. - Severe peripheral vascular disease. s/p angio with notion of severe infrapopliteal disease and pedal disease. Further recommendations based on clinical course. Plan of care discussed with Dr. French. Exam/Review of Systems Vital Signs Vitals Vital Signs Date Time Temp Pulse Resp B/P Pulse Ox O2 Delivery O2 Flow Rate FiO2 02/22/17 13:54 98.4 69 18 159/68 100 02/20/17 21:00 Room Air Intake and Output 02/21/17 02/21/17 02/22/17 15:00 23:00 07:00 Intake Total 500 ml 680 ml Output Total 3000 ml Balance -2500 ml 680 ml Results Result Diagram: 02/22/17 0506 02/22/17 0506 Results 24 hrs Laboratory Tests Test 02/21/17 17:40 02/21/17 20:25 02/22/17 05:06 02/22/17 08:00 Bedside Glucose 203 131 77 White Blood Count 6.5 Red Blood Count 3.30 L Hemoglobin 9.0 L Hematocrit 29.1 L Mean Corpuscular Volume 88.2 Mean Corpuscular Hemoglobin 27.3 L Mean Corpuscular Hemoglobin Concent 30.9 L Red Cell Distribution Width 17.5 H Platelet Count 272 Mean Platelet Volume 10.1 Neutrophils % 69.0 Lymphocytes % 10.7 L Monocytes % 16.5 H Eosinophils % 2.6 Basophils % 0.9 Nucleated Red Blood Cells % 0.0 Neutrophils # 4.5 Lymphocytes # 0.7 L Monocytes # 1.1 H Eosinophils # 0.2 Basophils # 0.1 Nucleated Red Blood Cells # 0.0 Sodium Level 143 Potassium Level 5.5 H Chloride Level 99 Carbon Dioxide Level 34 H Anion Gap 16 Blood Urea Nitrogen 38 H Creatinine 8.31 H Glucose Level 73 Calcium Level 8.0 L Test 02/22/17 12:04 Bedside Glucose 98 Medications Medications Current Medications Morphine Sulfate (morphine) 2 mg Q4H PRN IV pain Last administered on 03:43; Admin Dose 2 MG; Start 02/11/17 at 01:30 Ondansetron HCl (Zofran Inj) 4 mg Q6H PRN IV NAUSEA AND/OR VOMITING Last administered on 02/21/17 06:38; Admin Dose 4 MG; Start 02/11/17 at 01:30 Diagnostic Test (Pha) (Accu-Chek) 1 ea 02 XX Last administered on 02/13/17 01 :35; Admin Dose 1 EA; Start 02/11/17 at 02:00 Miscellaneous Information 1 ea NOTE XX ; Start 02/11/17 at 02:00 Glucose (Glutose) 15 gm Q15M PRN PO DECREASED GLUCOSE; Start 02/11/17 at 02:00 Glucose (Glutose) 22.5 gm Q15M PRN PO DECREASED GLUCOSE; Start 02/11/17 at 02: 00 Dextrose (D50w Syringe) 25 ml Q15M PRN IV DECREASED GLUCOSE; Start 02/11/17 at 02:00 Dextrose (D50w Syringe) 50 ml Q15M PRN IV DECREASED GLUCOSE; Start 02/11/17 at 02:00 Glucagon (Glucagen) 1 mg Q15M PRN IM DECREASED GLUCOSE; Start 02/11/17 at 02: 00 Glucose (Glutose) 15 gm Q15M PRN BUCCAL DECREASED GLUCOSE; Start 02/11/17 at 02:00 Amlodipine Besylate (Norvasc) 5 mg BID PO Last administered on 02/22/17 08:05 ; Admin Dose 5 MG; Start 02/11/17 at 21:00 Atorvastatin Calcium (Lipitor) 40 mg HS PO Last administered on 02/21/17 20: 27; Admin Dose 40 MG; Start 02/11/17 at 21:00 Cinacalcet (Sensipar) 30 mg BID PO Last administered on 02/22/17 08:02; Admin Dose 30 MG; Start 02/11/17 at 21:00 Clopidogrel Bisulfate (plaVIX) 75 mg DAILY PO Last administered on 02/22/17 08:03; Admin Dose 75 MG; Start 02/12/17 at 09:00 Losartan Potassium (Cozaar) 25 mg DAILY PO Last administered on 02/22/17 08: 05; Admin Dose 25 MG; Start 02/12/17 at 09:00 Metoprolol Succinate (Toprol Xl) 25 mg DAILY PO Last administered on 08:04; Admin Dose 25 MG; Start 02/12/17 at 09:00 Nifedipine (Procardia Xl) 60 mg DAILY PO Last administered on 02/22/17 08:04 ; Admin Dose 60 MG; Start 02/12/17 at 09:00 Zolpidem Tartrate (Ambien) 5 mg QHS PRN PO INSOMNIA Last administered on 23:14; Admin Dose 5 MG; Start 02/11/17 at 13:00 Acetaminophen/ Hydrocodone Bitart (Barnhart (5/325)) 1 tab Q4H PRN PO PAIN Last administered on 02/21/17 14:34; Admin Dose 1 TAB; Start 02/11/17 at 17:00 Clonidine (Catapres) 0.1 mg Q6H PRN PO ELEVATED SYSTOLIC BP Last administered on 02/16/17 19:47; Admin Dose 0.1 MG; Start 02/12/17 at 01:30 Epoetin Jorge Luis (Epogen (Esrd)) 4,000 units MoWeFr@17 SC Last administered on 17:51; Admin Dose 4,000 UNITS; Start 02/12/17 at 17:00 Senna (Senokot) 2 tab BID PO Last administered on 02/19/17 20:18; Admin Dose 2 TAB; Start 02/13/17 at 09:00 Metoclopramide HCl (Reglan) 5 mg Q6H PRN IV N/V Last administered on 03:35; Admin Dose 5 MG; Start 02/13/17 at 03:30 Docusate Sodium (Colace) 100 mg BID PRN PO CONSTIPATION Last administered on 15:02; Admin Dose 100 MG; Start 02/13/17 at 13:30 Bisacodyl (Dulcolax) 10 mg DAILY PRN PO CONSTIPATION Last administered on 02/17 15:02; Admin Dose 10 MG; Start 02/13/17 at 13:30 Magnesium Hydroxide (Milk Of Mag) 30 ml BID PRN PO CONSTIPATION Last administered on 02/18/17 08:20; Admin Dose 30 ML; Start 02/14/17 at 13:30 Ondansetron HCl (Zofran Inj) 4 mg Q4H PRN IV NAUSEA AND/OR VOMITING; Start at 07:30 Doxycycline Hyclate (Vibramycin) 100 mg BID PO Last administered on 02/22/17 09:13; Admin Dose 100 MG; Start 02/17/17 at 21:00 Hydrocortisone (Anusol-Hc Supp) 25 mg TID PRN [place] HEMORROID PAIN/ITCHING; Start 02/17/17 at 18:00 Lactobacillus Acidophilus/ Rhamnosus (Culturelle) 1 cap BID PO Last administered on 02/22/17 08:02; Admin Dose 1 CAP; Start 02/18/17 at 21:00 Morphine Sulfate (Ms Contin (Er)) 15 mg BID PO Last administered on 02/22/17 09:14; Admin Dose 15 MG; Start 02/20/17 at 21:00 Morphine Sulfate (morphine) 4 mg Q3H PRN IV PAIN LEVEL 7-10 Last administered on 02/21/17 12:46; Admin Dose 4 MG; Start 02/20/17 at 16:30 Diphenhydramine HCl (Benadryl) 25 mg Q6H PRN PO ITCHING; Start 02/21/17 at 18: 30 IHSAN SULLIVAN Feb 22, 2017 16:16
[2017-02-22] MEDS: NA POLYST SULFON 15 GM/60 ML BTL PO ONE ×2 (16:27→16:43)
[2017-02-22 19:30] VITALS: BP 163/78; RESP 20
[2017-02-22] MEDS: ATORVASTATIN 40 MG TAB PO SCH (20:21)
[2017-02-22] MEDS: ZOLPIDEM 5 MG TAB PO PRN (23:45)
[2017-02-23] VITALS (10 sets, daily range): BP systolic 10–156; BP diastolic 47–73; PULSE 69–75; RESP 18–20
[2017-02-23] MEDS: ACCU-CHEK XX SCH (02:00)
[2017-02-23 06:25] LABS: BASOPHIL # 0.1 10^3/ul (0.0-0.1); BASOPHILS % 0.9 % (0.0-2.0); EOSINOPHILS # 0.2 10^3/ul (0.0-0.5); EOSINOPHILS % 3.1 % (0.0-7.0); HEMATOCRIT 29.5 % (42.0-52.0); HEMOGLOBIN 9.2 g/dl (14.0-18.0); LYMPHOCYTES # 0.8 10^3/ul (0.8-2.9); LYMPHOCYTES % 11.7 % (15.0-51.0); MEAN CORPUSCULAR HEMOGLOBIN 27.1 pg (29.0-33.0); MEAN CORPUSCULAR HGB CONC 31.2 g/dl (32.0-37.0); MEAN CORPUSCULAR VOLUME 86.8 fl (82.0-101.0); MONOCYTE # 1.1 10^3/ul (0.3-0.9); MONOCYTES % 15.1 % (0.0-11.0); NEUTROPHIL # 4.8 10^3/ul (1.6-7.5); NEUTROPHILS % 68.9 % (39.0-77.0); PLATELET COUNT 263 10^3/UL (140-415); RED CELL DISTRIBUTION WIDTH 17.5 % (11.5-14.5)
[2017-02-23 07:02] LABS: CALCIUM 8.6 mg/dl (8.4-10.2); CREATININE 10.21 mg/dl (0.61-1.24); POTASSIUM 5.9 mmol/L (3.5-5.1)
[2017-02-23] MEDS: INSULIN ASPART [NOVOLOG] 3 ML PEN SC SCH ×4 (07:59→21:00)
[2017-02-23] MEDS: SEVELAMER 800 MG TAB PO SCH ×3 (08:00→17:23)
[2017-02-23] MEDS: CALCIUM ACETATE 667 MG CAP PO SCH ×3 (08:00→17:23)
[2017-02-23] MEDS: SENNA TAB PO SCH ×2 (08:01→21:05)
[2017-02-23] MEDS: CLOPIDOGREL 75 MG TAB PO SCH (08:01)
[2017-02-23] MEDS: CINACALCET 30 MG TAB PO SCH ×2 (08:01→21:04)
[2017-02-23] MEDS: LOSARTAN 25 MG TAB PO SCH (08:02)
[2017-02-23] MEDS: NIFEdipine (XL) 60 MG TAB PO SCH (08:02)
[2017-02-23] MEDS: AMLODIPINE 5 MG TAB PO SCH ×2 (08:02→21:05)
[2017-02-23] MEDS: LACTOBACILLUS RHAMNOSUS CAP PO SCH ×2 (08:03→21:04)
[2017-02-23] MEDS: METOPROLOL (XL) 25 MG TAB PO SCH (08:03)
[2017-02-23] MEDS: morphine (ER) 15 MG TAB PO SCH ×2 (09:10→21:05)
[2017-02-23] MEDS: DOXYCYCLINE 100 MG TAB PO SCH ×2 (09:10→21:04)
--- NOTE | 2017-02-23 14:07 | CONS ---
Date/Time of Note Date/Time of Note DATE: 02/23/17 TIME: 14:00 Assessment/Plan Assessment/Plan Chief Complaint/Hosp Course Assessment/Plan Chief Complaint/Hosp Course SUBJECTIVE: Awake. Alert. Complains of Left Foot Pain. Vital Signs: T- 98.4 BP- 142/67 HR- 70 RR -18 O2Sat- 99% INDWELLINGS: Left upper extremity AV fistula. MICROBIOLOGY: Blood cultures had been negative. ANTIMICROBIALS: Doxycycline PHYSICAL EXAMINATION: GENERAL: Well-developed, chronically ill-appearing, elderly man in no distress. HEENT: Head atraumatic, normocephalic. Sclerae anicteric. Buccal mucosa dry. NECK: Supple. CHEST: Rise symmetrical. Breath sounds diminished to bases. HEART: S1, S2. ABDOMEN: Soft. Bowel tones present. EXTREMITIES: Left lower extremity gangrene. ASSESSMENT: 1. Left lower extremity dry gangrene. 2. Peripheral vascular disease. 3. End-stage renal disease, hemodialysis dependent. 4. Hypertension. 5. Constipation 6. Left Foot Pain PLAN: Continue Antibiotics. Pain management. Continue Antibiotics. Avoid nephrotoxic drugs. Monitor Renal function. Hemodialysis as per [employer]. GI Prophylaxis. DVT Prophylaxis. Problems: Consultation Date/Type/Reason Admit Date/Time Feb 10, 2017 at 23:00 Initial Consult Date 02/11/17 Type of Consultation: ID Referring Provider: POLY THRASHER MD Exam/Review of Systems Vital Signs Vitals Vital Signs Date Time Temp Pulse Resp B/P Pulse Ox O2 Delivery O2 Flow Rate FiO2 02/23/17 07:27 98.4 70 18 142/67 99 02/20/17 21:00 Room Air Intake and Output 02/22/17 02/22/17 02/23/17 15:00 23:00 07:00 Intake Total 720 ml Balance 720 ml Results Result Diagram: 02/23/17 0602 02/23/17 0602 Results 24 hrs Laboratory Tests Test 02/22/17 17:13 02/22/17 20:19 02/23/17 05:48 02/23/17 06:02 Bedside Glucose 93 84 74 White Blood Count 7.0 Red Blood Count 3.40 L Hemoglobin 9.2 L Hematocrit 29.5 L Mean Corpuscular Volume 86.8 Mean Corpuscular Hemoglobin 27.1 L Mean Corpuscular Hemoglobin Concent 31.2 L Red Cell Distribution Width 17.5 H Platelet Count 263 Mean Platelet Volume 10.0 Neutrophils % 68.9 Lymphocytes % 11.7 L Monocytes % 15.1 H Eosinophils % 3.1 Basophils % 0.9 Nucleated Red Blood Cells % 0.0 Neutrophils # 4.8 Lymphocytes # 0.8 Monocytes # 1.1 H Eosinophils # 0.2 Basophils # 0.1 Nucleated Red Blood Cells # 0.0 Sodium Level 140 Potassium Level 5.9 H Chloride Level 96 L Carbon Dioxide Level 33 H Anion Gap 17 H Blood Urea Nitrogen 52 H Creatinine 10.21 H Glucose Level 74 Calcium Level 8.6 Test 02/23/17 07:58 02/23/17 12:04 Bedside Glucose 102 84 Medications Medications Current Medications Morphine Sulfate (morphine) 2 mg Q4H PRN IV pain Last administered on 03:43; Admin Dose 2 MG; Start 02/11/17 at 01:30 Diagnostic Test (Pha) (Accu-Chek) 1 ea 02 XX Last administered on 02/13/17 01 :35; Admin Dose 1 EA; Start 02/11/17 at 02:00 Miscellaneous Information 1 ea NOTE XX ; Start 02/11/17 at 02:00 Glucose (Glutose) 15 gm Q15M PRN PO DECREASED GLUCOSE; Start 02/11/17 at 02:00 Glucose (Glutose) 22.5 gm Q15M PRN PO DECREASED GLUCOSE; Start 02/11/17 at 02: 00 Dextrose (D50w Syringe) 25 ml Q15M PRN IV DECREASED GLUCOSE; Start 02/11/17 at 02:00 Dextrose (D50w Syringe) 50 ml Q15M PRN IV DECREASED GLUCOSE; Start 02/11/17 at 02:00 Glucagon (Glucagen) 1 mg Q15M PRN IM DECREASED GLUCOSE; Start 02/11/17 at 02: 00 Glucose (Glutose) 15 gm Q15M PRN BUCCAL DECREASED GLUCOSE; Start 02/11/17 at 02:00 Amlodipine Besylate (Norvasc) 5 mg BID PO Last administered on 02/23/17 08:02 ; Admin Dose 5 MG; Start 02/11/17 at 21:00 Atorvastatin Calcium (Lipitor) 40 mg HS PO Last administered on 02/22/17 20: 21; Admin Dose 40 MG; Start 02/11/17 at 21:00 Cinacalcet (Sensipar) 30 mg BID PO Last administered on 02/23/17 08:01; Admin Dose 30 MG; Start 02/11/17 at 21:00 Clopidogrel Bisulfate (plaVIX) 75 mg DAILY PO Last administered on 02/23/17 08:01; Admin Dose 75 MG; Start 02/12/17 at 09:00 Losartan Potassium (Cozaar) 25 mg DAILY PO Last administered on 02/23/17 08: 02; Admin Dose 25 MG; Start 02/12/17 at 09:00 Metoprolol Succinate (Toprol Xl) 25 mg DAILY PO Last administered on 08:03; Admin Dose 25 MG; Start 02/12/17 at 09:00 Nifedipine (Procardia Xl) 60 mg DAILY PO Last administered on 02/23/17 08:02 ; Admin Dose 60 MG; Start 02/12/17 at 09:00 Zolpidem Tartrate (Ambien) 5 mg QHS PRN PO INSOMNIA Last administered on 23:45; Admin Dose 5 MG; Start 02/11/17 at 13:00 Acetaminophen/ Hydrocodone Bitart (A[place]er (5/325)) 1 tab Q4H PRN PO PAIN Last administered on 02/21/17 14:34; Admin Dose 1 TAB; Start 02/11/17 at 17:00 Clonidine (Catapres) 0.1 mg Q6H PRN PO ELEVATED SYSTOLIC BP Last administered on 02/22/17 23:51; Admin Dose 0.1 MG; Start 02/12/17 at 01:30 Epoetin Jorge Luis (Epogen (Esrd)) 4,000 units MoWeFr@17 SC Last administered on 17:51; Admin Dose 4,000 UNITS; Start 02/12/17 at 17:00 Senna (Senokot) 2 tab BID PO Last administered on 02/23/17 08:01; Admin Dose 2 TAB; Start 02/13/17 at 09:00 Metoclopramide HCl (Reglan) 5 mg Q6H PRN IV N/V Last administered on 03:35; Admin Dose 5 MG; Start 02/13/17 at 03:30 Docusate Sodium (Colace) 100 mg BID PRN PO CONSTIPATION Last administered on 15:02; Admin Dose 100 MG; Start 02/13/17 at 13:30 Bisacodyl (Dulcolax) 10 mg DAILY PRN PO CONSTIPATION Last administered on 02/17 15:02; Admin Dose 10 MG; Start 02/13/17 at 13:30 Magnesium Hydroxide (Milk Of Mag) 30 ml BID PRN PO CONSTIPATION Last administered on 02/18/17 08:20; Admin Dose 30 ML; Start 02/14/17 at 13:30 Ondansetron HCl (Zofran Inj) 4 mg Q4H PRN IV NAUSEA AND/OR VOMITING; Start at 07:30 Doxycycline Hyclate (Vibramycin) 100 mg BID PO Last administered on 02/23/17 09:10; Admin Dose 100 MG; Start 02/17/17 at 21:00 Hydrocortisone (Anusol-Hc Supp) 25 mg TID PRN [place] HEMORROID PAIN/ITCHING; Start 02/17/17 at 18:00 Lactobacillus Acidophilus/ Rhamnosus (Culturelle) 1 cap BID PO Last administered on 02/23/17 08:03; Admin Dose 1 CAP; Start 02/18/17 at 21:00 Morphine Sulfate (Ms Contin (Er)) 15 mg BID PO Last administered on 02/23/17 09:10; Admin Dose 15 MG; Start 02/20/17 at 21:00 Morphine Sulfate (morphine) 4 mg Q3H PRN IV PAIN LEVEL 7-10 Last administered on 02/21/17 12:46; Admin Dose 4 MG; Start 02/20/17 at 16:30 Diphenhydramine HCl (Benadryl) 25 mg Q6H PRN PO ITCHING; Start 02/21/17 at 18: 30 EDUARDO NUR NP Feb 23, 2017 14:06
[2017-02-23] MEDS: HYDROCODONE/APAP (5/325) TAB PO PRN (14:43)
--- NOTE | 2017-02-23 18:46 | PN ---
Date/Time of Note Date/Time of Note DATE: 02/23/17 TIME: 18:44 Assessment/Plan Lines/Catheters IV [facility] Type (from [facility] Saline Lock Urinary Cath still in place: No Assessment/Plan Assessment/Plan - Hyperkalemia- rn to call [facility] for either HD /Kayexalate - HD today - am BMP - Left foot multiple gangrenous wounds. Dr. Zaragoza is following in vascular surgery consultation, Dr. Jackman is following in podiatry consultation. Dr. Tobias is following in ID consultation. Continue antibiotics per ID , continue current wound care. - End-stage renal disease, hemodialysis dependent. Dr. Newby is following in nephrology consultation. Continue on hemodialysis. - Hypertension. Continue home antihypertensive medication. Monitor blood pressure. - CAD - Permanent Pacemaker - Legally blind status. - Anemia of chronic disease. - Severe peripheral vascular disease. s/p angio with notion of severe infrapopliteal disease and pedal disease. Further recommendations based on clinical course. Plan of care discussed with Dr. French. Subjective 24 Hr Interval Summary Free Text/Dictation patient seen at 1800 Exam/Review of Systems Vital Signs Vitals Vital Signs Date Time Temp Pulse Resp B/P Pulse Ox O2 Delivery O2 Flow Rate FiO2 02/23/17 14:15 97.7 70 18 103/55 99 02/20/17 21:00 Room Air Intake and Output 02/22/17 02/22/17 02/23/17 15:00 23:00 07:00 Intake Total 720 ml Balance 720 ml Results Result Diagram: 02/23/17 0602 02/23/17 0602 Results 24 hrs Laboratory Tests Test 02/22/17 20:19 02/23/17 05:48 02/23/17 06:02 02/23/17 07:58 Bedside Glucose 84 74 102 White Blood Count 7.0 Red Blood Count 3.40 L Hemoglobin 9.2 L Hematocrit 29.5 L Mean Corpuscular Volume 86.8 Mean Corpuscular Hemoglobin 27.1 L Mean Corpuscular Hemoglobin Concent 31.2 L Red Cell Distribution Width 17.5 H Platelet Count 263 Mean Platelet Volume 10.0 Neutrophils % 68.9 Lymphocytes % 11.7 L Monocytes % 15.1 H Eosinophils % 3.1 Basophils % 0.9 Nucleated Red Blood Cells % 0.0 Neutrophils # 4.8 Lymphocytes # 0.8 Monocytes # 1.1 H Eosinophils # 0.2 Basophils # 0.1 Nucleated Red Blood Cells # 0.0 Sodium Level 140 Potassium Level 5.9 H Chloride Level 96 L Carbon Dioxide Level 33 H Anion Gap 17 H Blood Urea Nitrogen 52 H Creatinine 10.21 H Glucose Level 74 Calcium Level 8.6 Test 02/23/17 12:04 02/23/17 17:19 Bedside Glucose 84 106 Medications Medications Current Medications Morphine Sulfate (morphine) 2 mg Q4H PRN IV pain Last administered on 03:43; Admin Dose 2 MG; Start 02/11/17 at 01:30 Diagnostic Test (Pha) (Accu-Chek) 1 ea 02 XX Last administered on 02/13/17 01 :35; Admin Dose 1 EA; Start 02/11/17 at 02:00 Miscellaneous Information 1 ea NOTE XX ; Start 02/11/17 at 02:00 Glucose (Glutose) 15 gm Q15M PRN PO DECREASED GLUCOSE; Start 02/11/17 at 02:00 Glucose (Glutose) 22.5 gm Q15M PRN PO DECREASED GLUCOSE; Start 02/11/17 at 02: 00 Dextrose (D50w Syringe) 25 ml Q15M PRN IV DECREASED GLUCOSE; Start 02/11/17 at 02:00 Dextrose (D50w Syringe) 50 ml Q15M PRN IV DECREASED GLUCOSE; Start 02/11/17 at 02:00 Glucagon (Glucagen) 1 mg Q15M PRN IM DECREASED GLUCOSE; Start 02/11/17 at 02: 00 Glucose (Glutose) 15 gm Q15M PRN BUCCAL DECREASED GLUCOSE; Start 02/11/17 at 02:00 Amlodipine Besylate (Norvasc) 5 mg BID PO Last administered on 02/23/17 08:02 ; Admin Dose 5 MG; Start 02/11/17 at 21:00 Atorvastatin Calcium (Lipitor) 40 mg HS PO Last administered on 02/22/17 20: 21; Admin Dose 40 MG; Start 02/11/17 at 21:00 Cinacalcet (Sensipar) 30 mg BID PO Last administered on 02/23/17 08:01; Admin Dose 30 MG; Start 02/11/17 at 21:00 Clopidogrel Bisulfate (plaVIX) 75 mg DAILY PO Last administered on 02/23/17 08:01; Admin Dose 75 MG; Start 02/12/17 at 09:00 Losartan Potassium (Cozaar) 25 mg DAILY PO Last administered on 02/23/17 08: 02; Admin Dose 25 MG; Start 02/12/17 at 09:00 Metoprolol Succinate (Toprol Xl) 25 mg DAILY PO Last administered on 08:03; Admin Dose 25 MG; Start 02/12/17 at 09:00 Nifedipine (Procardia Xl) 60 mg DAILY PO Last administered on 02/23/17 08:02 ; Admin Dose 60 MG; Start 02/12/17 at 09:00 Zolpidem Tartrate (Ambien) 5 mg QHS PRN PO INSOMNIA Last administered on 23:45; Admin Dose 5 MG; Start 02/11/17 at 13:00 Acetaminophen/ Hydrocodone Bitart (Call (5/325)) 1 tab Q4H PRN PO PAIN Last administered on 02/23/17 14:43; Admin Dose 1 TAB; Start 02/11/17 at 17:00 Clonidine (Catapres) 0.1 mg Q6H PRN PO ELEVATED SYSTOLIC BP Last administered on 02/22/17 23:51; Admin Dose 0.1 MG; Start 02/12/17 at 01:30 Epoetin Jorge Luis (Epogen (Esrd)) 4,000 units MoWeFr@17 SC Last administered on 17:51; Admin Dose 4,000 UNITS; Start 02/12/17 at 17:00 Senna (Senokot) 2 tab BID PO Last administered on 02/23/17 08:01; Admin Dose 2 TAB; Start 02/13/17 at 09:00 Metoclopramide HCl (Reglan) 5 mg Q6H PRN IV N/V Last administered on 03:35; Admin Dose 5 MG; Start 02/13/17 at 03:30 Docusate Sodium (Colace) 100 mg BID PRN PO CONSTIPATION Last administered on 15:02; Admin Dose 100 MG; Start 02/13/17 at 13:30 Bisacodyl (Dulcolax) 10 mg DAILY PRN PO CONSTIPATION Last administered on 02/17 15:02; Admin Dose 10 MG; Start 02/13/17 at 13:30 Magnesium Hydroxide (Milk Of Mag) 30 ml BID PRN PO CONSTIPATION Last administered on 02/18/17 08:20; Admin Dose 30 ML; Start 02/14/17 at 13:30 Ondansetron HCl (Zofran Inj) 4 mg Q4H PRN IV NAUSEA AND/OR VOMITING; Start at 07:30 Doxycycline Hyclate (Vibramycin) 100 mg BID PO Last administered on 02/23/17 09:10; Admin Dose 100 MG; Start 02/17/17 at 21:00 Hydrocortisone (Anusol-Hc Supp) 25 mg TID PRN [place] HEMORROID PAIN/ITCHING; Start 02/17/17 at 18:00 Lactobacillus Acidophilus/ Rhamnosus (Culturelle) 1 cap BID PO Last administered on 02/23/17 08:03; Admin Dose 1 CAP; Start 02/18/17 at 21:00 Morphine Sulfate (Ms Contin (Er)) 15 mg BID PO Last administered on 02/23/17 09:10; Admin Dose 15 MG; Start 02/20/17 at 21:00 Morphine Sulfate (morphine) 4 mg Q3H PRN IV PAIN LEVEL 7-10 Last administered on 02/21/17 12:46; Admin Dose 4 MG; Start 02/20/17 at 16:30 Diphenhydramine HCl (Benadryl) 25 mg Q6H PRN PO ITCHING; Start 02/21/17 at 18: 30 IHSAN SULLIVAN Feb 23, 2017 18:45
[2017-02-23] MEDS: ATORVASTATIN 40 MG TAB PO SCH (21:04)
[2017-02-24] VITALS (12 sets, daily range): BP systolic 108–166; BP diastolic 53–80; PULSE 74–94; RESP 18–20
[2017-02-24] MEDS: ACCU-CHEK XX SCH (02:00)
[2017-02-24] MEDS: BISACODYL (EC) 5 MG TAB PO PRN (03:52)
[2017-02-24] MEDS ORDERED: ALBUMIN HUMAN 25% 50 ML IV PRN (06:00)
[2017-02-24 06:06] LABS: ABNORMAL IP MESSAGE 1; BASOPHIL # 0.1 10^3/ul (0.0-0.1); BASOPHILS % 0.8 % (0.0-2.0); EOSINOPHILS # 0.1 10^3/ul (0.0-0.5); EOSINOPHILS % 1.9 % (0.0-7.0); HEMATOCRIT 30.2 % (42.0-52.0); HEMOGLOBIN 9.1 g/dl (14.0-18.0); LYMPHOCYTES # 0.4 10^3/ul (0.8-2.9); LYMPHOCYTES % 6.8 % (15.0-51.0); MEAN CORPUSCULAR HEMOGLOBIN 26.5 pg (29.0-33.0); MEAN CORPUSCULAR HGB CONC 30.1 g/dl (32.0-37.0); MEAN CORPUSCULAR VOLUME 87.8 fl (82.0-101.0); MEAN PLATELET VOLUME 10.1 fl (7.4-10.4); MONOCYTE # 0.9 10^3/ul (0.3-0.9); NEUTROPHIL # 4.8 10^3/ul (1.6-7.5); PLATELET COUNT 241 10^3/UL (140-415); POSITIVE DIFF @See below; RED BLOOD COUNT 3.44 10^6/ul (4.70-6.10); RED CELL DISTRIBUTION WIDTH 17.4 % (11.5-14.5); WHITE BLOOD COUNT 6.3 10^3/ul (4.8-10.8)
[2017-02-24 06:42] LABS: CALCIUM 8.5 mg/dl (8.4-10.2); CREATININE 8.61 mg/dl (0.61-1.24); POTASSIUM 4.9 mmol/L (3.5-5.1)
[2017-02-24] MEDS: SENNA TAB PO SCH ×2 (08:00→20:33)
[2017-02-24] MEDS: CLOPIDOGREL 75 MG TAB PO SCH (08:00)
[2017-02-24] MEDS: CALCIUM ACETATE 667 MG CAP PO SCH ×3 (08:01→17:05)
[2017-02-24] MEDS: LACTOBACILLUS RHAMNOSUS CAP PO SCH ×2 (08:01→20:33)
[2017-02-24] MEDS: SEVELAMER 800 MG TAB PO SCH ×3 (08:01→17:05)
[2017-02-24] MEDS: DOXYCYCLINE 100 MG TAB PO SCH ×2 (08:02→20:33)
[2017-02-24] MEDS: METOPROLOL (XL) 25 MG TAB PO SCH (08:10)
[2017-02-24] MEDS: NIFEdipine (XL) 60 MG TAB PO SCH (08:10)
[2017-02-24] MEDS: AMLODIPINE 5 MG TAB PO SCH ×2 (08:10→20:40)
[2017-02-24] MEDS: morphine (ER) 15 MG TAB PO SCH ×2 (08:11→20:34)
[2017-02-24] MEDS: LOSARTAN 25 MG TAB PO SCH (08:11)
[2017-02-24] MEDS: INSULIN ASPART [NOVOLOG] 3 ML PEN SC SCH ×4 (08:12→20:43)
[2017-02-24] MEDS: CINACALCET 30 MG TAB PO SCH ×2 (09:00→20:33)
--- NOTE | 2017-02-24 14:06 | CONS ---
Date/Time of Note Date/Time of Note DATE: 02/24/17 TIME: 14:04 Consultation Date/Type/Reason Admit Date/Time Feb 10, 2017 at 23:00 Initial Consult Date Chief Complaint/Hosp Course SUBJECTIVE: 61 y/o being treated for Bilateral lower extremity atherosclerosis with left lower extremity gangrene. Severe PAD S/P surgical intervention. Still C/O mild-mod pain. Continuing with HD at bedside. No events overnight. The patient is awake, looks comfortable, denies fevers. VS: 108/53 P:70 R:20 SO2:99% T:97.5 LABS: Reviewed. WBC-6.3 H&H-9.1/30.2 BUN-46 CREAT-8.61 INDWELLINGS: Left upper extremity AV fistula. MICROBIOLOGY: Blood cultures had been negative. ANTIMICROBIALS: The patient is on Doxycycline PHYSICAL EXAMINATION: GENERAL: Well-developed, chronically ill-appearing, elderly man in no distress. HEENT: Head atraumatic, normocephalic. Sclerae anicteric. Buccal mucosa dry. NECK: Supple. CHEST: Rise symmetrical. Breath sounds diminished to bases. HEART: S1, S2. ABDOMEN: Soft. Bowel tones present. EXTREMITIES: Left lower extremity gangrene. ASSESSMENT: 1. Left lower extremity gangrene. 2. Severe PAD/PVD S/P angiogram 3. End-stage renal disease, hemodialysis dependent. 4. Hypertension. 5. Constipation 6. CAD 7. Permanent Pacemaker 8. Legally blind status. 9. Anemia of chronic disease. PLAN: The patient remains stable. Continue Doxy abx. to finish 2wks treatment. Follow podiatry and vascular recommendations. Wound care, pain management. Type of Consultation: ID Referring Provider: POLY THRASHER MD Exam/Review of Systems Vital Signs Vitals Vital Signs Date Time Temp Pulse Resp B/P Pulse Ox O2 Delivery O2 Flow Rate FiO2 02/24/17 13:26 97.8 70 18 108/53 99 02/20/17 21:00 Room Air Intake and Output 02/23/17 02/23/17 02/24/17 15:00 23:00 07:00 Intake Total 600 ml 400 ml 560 ml Output Total 1400 ml Balance 600 ml -1000 ml 560 ml Results Result Diagram: 02/24/17 0517 02/24/17 0516 Results 24 hrs Laboratory Tests Test 02/23/17 17:19 02/23/17 21:10 02/24/17 05:16 02/24/17 05:17 Bedside Glucose 106 105 Sodium Level 142 Potassium Level 4.9 Chloride Level 99 Carbon Dioxide Level 31 Anion Gap 17 H Blood Urea Nitrogen 46 H Creatinine 8.61 H Glucose Level 85 Calcium Level 8.5 White Blood Count 6.3 Red Blood Count 3.44 L Hemoglobin 9.1 L Hematocrit 30.2 L Mean Corpuscular Volume 87.8 Mean Corpuscular Hemoglobin 26.5 L Mean Corpuscular Hemoglobin Concent 30.1 L Red Cell Distribution Width 17.4 H Platelet Count 241 Mean Platelet Volume 10.1 Neutrophils % 76.0 Lymphocytes % 6.8 L Monocytes % 14.0 H Eosinophils % 1.9 Basophils % 0.8 Nucleated Red Blood Cells % 0.0 Neutrophils # 4.8 Lymphocytes # 0.4 L Monocytes # 0.9 Eosinophils # 0.1 Basophils # 0.1 Nucleated Red Blood Cells # 0.0 Test 02/24/17 07:59 02/24/17 12:21 Bedside Glucose 130 78 Medications Medications Current Medications Morphine Sulfate (morphine) 2 mg Q4H PRN IV pain Last administered on 03:43; Admin Dose 2 MG; Start 02/11/17 at 01:30 Diagnostic Test (Pha) (Accu-Chek) 1 ea 02 XX Last administered on 02/13/17 01 :35; Admin Dose 1 EA; Start 02/11/17 at 02:00 Miscellaneous Information 1 ea NOTE XX ; Start 02/11/17 at 02:00 Glucose (Glutose) 15 gm Q15M PRN PO DECREASED GLUCOSE; Start 02/11/17 at 02:00 Glucose (Glutose) 22.5 gm Q15M PRN PO DECREASED GLUCOSE; Start 02/11/17 at 02: 00 Dextrose (D50w Syringe) 25 ml Q15M PRN IV DECREASED GLUCOSE; Start 02/11/17 at 02:00 Dextrose (D50w Syringe) 50 ml Q15M PRN IV DECREASED GLUCOSE; Start 02/11/17 at 02:00 Glucagon (Glucagen) 1 mg Q15M PRN IM DECREASED GLUCOSE; Start 02/11/17 at 02: 00 Glucose (Glutose) 15 gm Q15M PRN BUCCAL DECREASED GLUCOSE; Start 02/11/17 at 02:00 Amlodipine Besylate (Norvasc) 5 mg BID PO Last administered on 02/24/17 08:10 ; Admin Dose 5 MG; Start 02/11/17 at 21:00 Atorvastatin Calcium (Lipitor) 40 mg HS PO Last administered on 02/23/17 21: 04; Admin Dose 40 MG; Start 02/11/17 at 21:00 Cinacalcet (Sensipar) 30 mg BID PO Last administered on 02/23/17 21:04; Admin Dose 30 MG; Start 02/11/17 at 21:00 Clopidogrel Bisulfate (plaVIX) 75 mg DAILY PO Last administered on 02/24/17 08:00; Admin Dose 75 MG; Start 02/12/17 at 09:00 Losartan Potassium (Cozaar) 25 mg DAILY PO Last administered on 02/24/17 08: 11; Admin Dose 25 MG; Start 02/12/17 at 09:00 Metoprolol Succinate (Toprol Xl) 25 mg DAILY PO Last administered on 08:10; Admin Dose 25 MG; Start 02/12/17 at 09:00 Nifedipine (Procardia Xl) 60 mg DAILY PO Last administered on 02/24/17 08:10 ; Admin Dose 60 MG; Start 02/12/17 at 09:00 Zolpidem Tartrate (Ambien) 5 mg QHS PRN PO INSOMNIA Last administered on 23:45; Admin Dose 5 MG; Start 02/11/17 at 13:00 Acetaminophen/ Hydrocodone Bitart ([place] (5/325)) 1 tab Q4H PRN PO PAIN Last administered on 02/23/17 14:43; Admin Dose 1 TAB; Start 02/11/17 at 17:00 Clonidine (Catapres) 0.1 mg Q6H PRN PO ELEVATED SYSTOLIC BP Last administered on 02/22/17 23:51; Admin Dose 0.1 MG; Start 02/12/17 at 01:30 Epoetin Jorge Luis (Epogen (Esrd)) 4,000 units MoWeFr@17 SC Last administered on 17:51; Admin Dose 4,000 UNITS; Start 02/12/17 at 17:00 Senna (Senokot) 2 tab BID PO Last administered on 02/24/17 08:00; Admin Dose 2 TAB; Start 02/13/17 at 09:00 Metoclopramide HCl (Reglan) 5 mg Q6H PRN IV N/V Last administered on 03:35; Admin Dose 5 MG; Start 02/13/17 at 03:30 Docusate Sodium (Colace) 100 mg BID PRN PO CONSTIPATION Last administered on 15:02; Admin Dose 100 MG; Start 02/13/17 at 13:30 Bisacodyl (Dulcolax) 10 mg DAILY PRN PO CONSTIPATION Last administered on 02/24 03:52; Admin Dose 10 MG; Start 02/13/17 at 13:30 Magnesium Hydroxide (Milk Of Mag) 30 ml BID PRN PO CONSTIPATION Last administered on 02/18/17 08:20; Admin Dose 30 ML; Start 02/14/17 at 13:30 Ondansetron HCl (Zofran Inj) 4 mg Q4H PRN IV NAUSEA AND/OR VOMITING; Start at 07:30 Doxycycline Hyclate (Vibramycin) 100 mg BID PO Last administered on 02/24/17 08:02; Admin Dose 100 MG; Start 02/17/17 at 21:00 Hydrocortisone (Anusol-Hc Supp) 25 mg TID PRN ID HEMORROID PAIN/ITCHING; Start 02/17/17 at 18:00 Lactobacillus Acidophilus/ Rhamnosus (Culturelle) 1 cap BID PO Last administered on 02/24/17 08:01; Admin Dose 1 CAP; Start 02/18/17 at 21:00 Morphine Sulfate (Ms Contin (Er)) 15 mg BID PO Last administered on 02/24/17 08:11; Admin Dose 15 MG; Start 02/20/17 at 21:00 Morphine Sulfate (morphine) 4 mg Q3H PRN IV PAIN LEVEL 7-10 Last administered on 02/21/17 12:46; Admin Dose 4 MG; Start 02/20/17 at 16:30 Diphenhydramine HCl (Benadryl) 25 mg Q6H PRN PO ITCHING; Start 02/21/17 at 18: 30 SKYLER MUSE Feb 24, 2017 14:06
[2017-02-24] MEDS: morphine 4 MG/ML VIAL IV PRN (14:37)
[2017-02-24] MEDS: EPOETIN 4000 UNITS/1 ML INJ (ESRD) SC SCH (17:01)
--- NOTE | 2017-02-24 18:05 | PN ---
Date/Time of Note Date/Time of Note DATE: 02/24/17 TIME: 18:04 Assessment/Plan VTE Prophylaxis VTE Prophylaxis Intervention: heparin Lines/Catheters [facility] Urinary Cath still in place: No Assessment/Plan Chief Complaint/Hosp Course Patient's continues to complain of left lower extremity pain requiring IV morphine. Pending intermediate facility placement Assessment/Plan - Left foot multiple gangrenous wounds. Dr. Zaragoza is following in vascular surgery consultation, Dr. Jackman is following in podiatry consultation. Dr. Tobias is following in ID consultation. Continue antibiotics per ID , continue current wound care. - End-stage renal disease, hemodialysis dependent. Dr. Newby is following in nephrology consultation. Continue on hemodialysis. - Hypertension. Continue home antihypertensive medication. Monitor blood pressure. - CAD - Permanent Pacemaker - Legally blind status. - Anemia of chronic disease. - Severe peripheral vascular disease. s/p angio with notion of severe infrapopliteal disease and pedal disease. Further recommendations based on clinical course. Plan of care discussed with Dr. French. Problems: Exam/Review of Systems Vital Signs Vitals Vital Signs Date Time Temp Pulse Resp B/P Pulse Ox O2 Delivery O2 Flow Rate FiO2 02/24/17 13:26 97.8 70 18 108/53 99 02/20/17 21:00 Room Air Intake and Output 02/23/17 02/23/17 02/24/17 15:00 23:00 07:00 Intake Total 600 ml 400 ml 560 ml Output Total 1400 ml Balance 600 ml -1000 ml 560 ml Exam Constitutional: alert, oriented Head: normocephalic Neck: supple Respiratory: normal air movement Cardiovascular: nl pulses, other (Permanent pacemaker right groin) Gastrointestinal: non-tender, soft Extremities: normal pulses Results Result Diagram: 02/24/17 0502/24/17 0516 Results 24 hrs Laboratory Tests Test 02/23/17 21:10 02/24/17 05:16 02/24/17 05:17 02/24/17 07:59 Bedside Glucose 105 130 Sodium Level 142 Potassium Level 4.9 Chloride Level 99 Carbon Dioxide Level 31 Anion Gap 17 H Blood Urea Nitrogen 46 H Creatinine 8.61 H Glucose Level 85 Calcium Level 8.5 White Blood Count 6.3 Red Blood Count 3.44 L Hemoglobin 9.1 L Hematocrit 30.2 L Mean Corpuscular Volume 87.8 Mean Corpuscular Hemoglobin 26.5 L Mean Corpuscular Hemoglobin Concent 30.1 L Red Cell Distribution Width 17.4 H Platelet Count 241 Mean Platelet Volume 10.1 Neutrophils % 76.0 Lymphocytes % 6.8 L Monocytes % 14.0 H Eosinophils % 1.9 Basophils % 0.8 Nucleated Red Blood Cells % 0.0 Neutrophils # 4.8 Lymphocytes # 0.4 L Monocytes # 0.9 Eosinophils # 0.1 Basophils # 0.1 Nucleated Red Blood Cells # 0.0 Test 02/24/17 12:21 02/24/17 17:02 Bedside Glucose 78 81 Medications Medications Current Medications Morphine Sulfate (morphine) 2 mg Q4H PRN IV pain Last administered on 03:43; Admin Dose 2 MG; Start 02/11/17 at 01:30 Diagnostic Test (Pha) (Accu-Chek) 1 ea 02 XX Last administered on 02/13/17 01 :35; Admin Dose 1 EA; Start 02/11/17 at 02:00 Miscellaneous Information 1 ea NOTE XX ; Start 02/11/17 at 02:00 Glucose (Glutose) 15 gm Q15M PRN PO DECREASED GLUCOSE; Start 02/11/17 at 02:00 Glucose (Glutose) 22.5 gm Q15M PRN PO DECREASED GLUCOSE; Start 02/11/17 at 02: 00 Dextrose (D50w Syringe) 25 ml Q15M PRN IV DECREASED GLUCOSE; Start 02/11/17 at 02:00 Dextrose (D50w Syringe) 50 ml Q15M PRN IV DECREASED GLUCOSE; Start 02/11/17 at 02:00 Glucagon (Glucagen) 1 mg Q15M PRN IM DECREASED GLUCOSE; Start 02/11/17 at 02: 00 Glucose (Glutose) 15 gm Q15M PRN BUCCAL DECREASED GLUCOSE; Start 02/11/17 at 02:00 Amlodipine Besylate (Norvasc) 5 mg BID PO Last administered on 02/24/17 08:10 ; Admin Dose 5 MG; Start 02/11/17 at 21:00 Atorvastatin Calcium (Lipitor) 40 mg HS PO Last administered on 02/23/17 21: 04; Admin Dose 40 MG; Start 02/11/17 at 21:00 Cinacalcet (Sensipar) 30 mg BID PO Last administered on 02/23/17 21:04; Admin Dose 30 MG; Start 02/11/17 at 21:00 Clopidogrel Bisulfate (plaVIX) 75 mg DAILY PO Last administered on 02/24/17 08:00; Admin Dose 75 MG; Start 02/12/17 at 09:00 Losartan Potassium (Cozaar) 25 mg DAILY PO Last administered on 02/24/17 08: 11; Admin Dose 25 MG; Start 02/12/17 at 09:00 Metoprolol Succinate (Toprol Xl) 25 mg DAILY PO Last administered on 08:10; Admin Dose 25 MG; Start 02/12/17 at 09:00 Nifedipine (Procardia Xl) 60 mg DAILY PO Last administered on 02/24/17 08:10 ; Admin Dose 60 MG; Start 02/12/17 at 09:00 Zolpidem Tartrate (Ambien) 5 mg QHS PRN PO INSOMNIA Last administered on 23:45; Admin Dose 5 MG; Start 02/11/17 at 13:00 Acetaminophen/ Hydrocodone Bitart ([place] (5/325)) 1 tab Q4H PRN PO PAIN Last administered on 02/23/17 14:43; Admin Dose 1 TAB; Start 02/11/17 at 17:00 Clonidine (Catapres) 0.1 mg Q6H PRN PO ELEVATED SYSTOLIC BP Last administered on 02/22/17 23:51; Admin Dose 0.1 MG; Start 02/12/17 at 01:30 Epoetin Jorge Luis (Epogen (Esrd)) 4,000 units MoWeFr@17 SC Last administered on 17:01; Admin Dose 4,000 UNITS; Start 02/12/17 at 17:00 Senna (Senokot) 2 tab BID PO Last administered on 02/24/17 08:00; Admin Dose 2 TAB; Start 02/13/17 at 09:00 Metoclopramide HCl (Reglan) 5 mg Q6H PRN IV N/V Last administered on 03:35; Admin Dose 5 MG; Start 02/13/17 at 03:30 Docusate Sodium (Colace) 100 mg BID PRN PO CONSTIPATION Last administered on 15:02; Admin Dose 100 MG; Start 02/13/17 at 13:30 Bisacodyl (Dulcolax) 10 mg DAILY PRN PO CONSTIPATION Last administered on 02/24 03:52; Admin Dose 10 MG; Start 02/13/17 at 13:30 Magnesium Hydroxide (Milk Of Mag) 30 ml BID PRN PO CONSTIPATION Last administered on 02/18/17 08:20; Admin Dose 30 ML; Start 02/14/17 at 13:30 Ondansetron HCl (Zofran Inj) 4 mg Q4H PRN IV NAUSEA AND/OR VOMITING; Start at 07:30 Doxycycline Hyclate (Vibramycin) 100 mg BID PO Last administered on 02/24/17 08:02; Admin Dose 100 MG; Start 02/17/17 at 21:00 Hydrocortisone (Anusol-Hc Supp) 25 mg TID PRN OR HEMORROID PAIN/ITCHING; Start 02/17/17 at 18:00 Lactobacillus Acidophilus/ Rhamnosus (Culturelle) 1 cap BID PO Last administered on 02/24/17 08:01; Admin Dose 1 CAP; Start 02/18/17 at 21:00 Morphine Sulfate (Ms Contin (Er)) 15 mg BID PO Last administered on 02/24/17 08:11; Admin Dose 15 MG; Start 02/20/17 at 21:00 Morphine Sulfate (morphine) 4 mg Q3H PRN IV PAIN LEVEL 7-10 Last administered on 02/24/17 14:37; Admin Dose 4 MG; Start 02/20/17 at 16:30 Diphenhydramine HCl (Benadryl) 25 mg Q6H PRN PO ITCHING; Start 02/21/17 at 18: 30 VIV KING Feb 24, 2017 18:05
[2017-02-24] MEDS: ATORVASTATIN 40 MG TAB PO SCH (20:33)
[2017-02-24] MEDS: ZOLPIDEM 5 MG TAB PO PRN (22:07)
[2017-02-25] MEDS: ACCU-CHEK XX SCH (01:23)
[2017-02-25 02:45] VITALS: BP 152/68; RESP 18
[2017-02-25 06:10] LABS: HAAIG REFLEX REFLEX FILED
[2017-02-25 06:15] LABS: BASOPHIL # 0.1 10^3/ul (0.0-0.1); BASOPHILS % 0.8 % (0.0-2.0); EOSINOPHILS # 0.1 10^3/ul (0.0-0.5); EOSINOPHILS % 2.1 % (0.0-7.0); HEMATOCRIT 30.5 % (42.0-52.0); HEMOGLOBIN 9.3 g/dl (14.0-18.0); LYMPHOCYTES # 0.6 10^3/ul (0.8-2.9); LYMPHOCYTES % 9.4 % (15.0-51.0); MEAN CORPUSCULAR HEMOGLOBIN 26.7 pg (29.0-33.0); MEAN CORPUSCULAR HGB CONC 30.5 g/dl (32.0-37.0); MEAN CORPUSCULAR VOLUME 87.6 fl (82.0-101.0); MEAN PLATELET VOLUME 10.4 fl (7.4-10.4); MONOCYTE # 1.1 10^3/ul (0.3-0.9); MONOCYTES % 16.4 % (0.0-11.0); NEUTROPHIL # 4.7 10^3/ul (1.6-7.5); PLATELET COUNT 243 10^3/UL (140-415); RED BLOOD COUNT 3.48 10^6/ul (4.70-6.10); RED CELL DISTRIBUTION WIDTH 17.5 % (11.5-14.5); WHITE BLOOD COUNT 6.6 10^3/ul (4.8-10.8)
[2017-02-25] MEDS: morphine 2 MG INJ IV PRN (06:38)
[2017-02-25 06:51] LABS: CALCIUM 8.3 mg/dl (8.4-10.2); CREATININE 7.15 mg/dl (0.61-1.24); POTASSIUM 4.9 mmol/L (3.5-5.1)
[2017-02-25 07:49] LABS: HEPATITIS B CORE ANTIBODY NEGATIVE (NEGATIVE)
[2017-02-25 07:54] VITALS: BP 140/71; RESP 18
[2017-02-25] MEDS: INSULIN ASPART [NOVOLOG] 3 ML PEN SC SCH ×4 (08:15→21:00)
[2017-02-25] MEDS: SEVELAMER 800 MG TAB PO SCH ×3 (08:39→18:12)
[2017-02-25] MEDS: CLOPIDOGREL 75 MG TAB PO SCH (08:39)
[2017-02-25] MEDS: DOXYCYCLINE 100 MG TAB PO SCH (08:39)
[2017-02-25] MEDS: CALCIUM ACETATE 667 MG CAP PO SCH ×3 (08:39→18:12)
[2017-02-25] MEDS: NIFEdipine (XL) 60 MG TAB PO SCH (08:40)
[2017-02-25] MEDS: SENNA TAB PO SCH ×2 (08:40→20:55)
[2017-02-25] MEDS: LOSARTAN 25 MG TAB PO SCH (08:40)
[2017-02-25] MEDS: METOPROLOL (XL) 25 MG TAB PO SCH (08:40)
[2017-02-25] MEDS: CINACALCET 30 MG TAB PO SCH ×2 (08:40→20:55)
[2017-02-25] MEDS: morphine (ER) 15 MG TAB PO SCH ×2 (08:41→20:55)
[2017-02-25] MEDS: AMLODIPINE 5 MG TAB PO SCH ×2 (08:41→20:58)
--- NOTE | 2017-02-25 12:47 | PN ---
Date/Time of Note Date/Time of Note DATE: 02/25/17 TIME: 12:45 Assessment/Plan VTE Prophylaxis VTE Prophylaxis Intervention: SCD's Lines/Catheters [facility] Urinary Cath still in place: No Assessment/Plan Chief Complaint/Hosp Course Pain is well controlled with current MS Contin, patient remains hemodynamically stable. Assessment/Plan - Left foot multiple gangrenous wounds. Dr. Zaragoza is following in vascular surgery consultation, Dr. Jackman is following in podiatry consultation. Dr. Tobias is following in ID consultation. Continue antibiotics per ID , continue current wound care. - End-stage renal disease, hemodialysis dependent. Dr. Newby is following in nephrology consultation. Continue on hemodialysis. - Hypertension. Continue home antihypertensive medication. Monitor blood pressure. - CAD - Permanent Pacemaker - Legally blind status. - Anemia of chronic disease. - Severe peripheral vascular disease. s/p angio with notion of severe infrapopliteal disease and pedal disease. Further recommendations based on clinical course. Plan of care discussed with Dr. French. Problems: Exam/Review of Systems Vital Signs Vitals Vital Signs Date Time Temp Pulse Resp B/P Pulse Ox O2 Delivery O2 Flow Rate FiO2 02/25/17 07:54 98.6 71 18 140/71 97 02/24/17 20:15 Room Air Intake and Output 02/24/17 02/24/17 02/25/17 15:00 23:00 07:00 Intake Total 500 ml 1080 ml Output Total 3000 ml Balance -2500 ml 1080 ml Exam Constitutional: alert, oriented Head: normocephalic Neck: supple Respiratory: normal air movement Cardiovascular: nl pulses, other (Permanent pacemaker right groin) Gastrointestinal: non-tender, soft Extremities: normal pulses Results Result Diagram: 02/25/17 0528 02/25/17 0528 Results 24 hrs Laboratory Tests Test 02/24/17 17:02 02/24/17 20:43 02/25/17 05:28 02/25/17 08:16 Bedside Glucose 81 100 74 White Blood Count 6.6 Red Blood Count 3.48 L Hemoglobin 9.3 L Hematocrit 30.5 L Mean Corpuscular Volume 87.6 Mean Corpuscular Hemoglobin 26.7 L Mean Corpuscular Hemoglobin Concent 30.5 L Red Cell Distribution Width 17.5 H Platelet Count 243 Mean Platelet Volume 10.4 Neutrophils % 71.0 Lymphocytes % 9.4 L Monocytes % 16.4 H Eosinophils % 2.1 Basophils % 0.8 Nucleated Red Blood Cells % 0.0 Neutrophils # 4.7 Lymphocytes # 0.6 L Monocytes # 1.1 H Eosinophils # 0.1 Basophils # 0.1 Nucleated Red Blood Cells # 0.0 Sodium Level 142 Potassium Level 4.9 Chloride Level 99 Carbon Dioxide Level 28 Anion Gap 20 H Blood Urea Nitrogen 40 H Creatinine 7.15 H Glucose Level 64 #L Calcium Level 8.3 L Hepatitis B Surface Antigen NEGATIVE Hepatitis B Core Total Antibody NEGATIVE Hepatitis C Antibody NEGATIVE Test 02/25/17 12:02 Bedside Glucose 101 Medications Medications Current Medications Morphine Sulfate (morphine) 2 mg Q4H PRN IV pain Last administered on 06:38; Admin Dose 2 MG; Start 02/11/17 at 01:30 Diagnostic Test (Pha) (Accu-Chek) 1 ea 02 XX Last administered on 02/13/17 01 :35; Admin Dose 1 EA; Start 02/11/17 at 02:00 Miscellaneous Information 1 ea NOTE XX ; Start 02/11/17 at 02:00 Glucose (Glutose) 15 gm Q15M PRN PO DECREASED GLUCOSE; Start 02/11/17 at 02:00 Glucose (Glutose) 22.5 gm Q15M PRN PO DECREASED GLUCOSE; Start 02/11/17 at 02: 00 Dextrose (D50w Syringe) 25 ml Q15M PRN IV DECREASED GLUCOSE; Start 02/11/17 at 02:00 Dextrose (D50w Syringe) 50 ml Q15M PRN IV DECREASED GLUCOSE; Start 02/11/17 at 02:00 Glucagon (Glucagen) 1 mg Q15M PRN IM DECREASED GLUCOSE; Start 02/11/17 at 02: 00 Glucose (Glutose) 15 gm Q15M PRN BUCCAL DECREASED GLUCOSE; Start 02/11/17 at 02:00 Amlodipine Besylate (Norvasc) 5 mg BID PO Last administered on 02/25/17 08:41 ; Admin Dose 5 MG; Start 02/11/17 at 21:00 Atorvastatin Calcium (Lipitor) 40 mg HS PO Last administered on 02/24/17 20: 33; Admin Dose 40 MG; Start 02/11/17 at 21:00 Cinacalcet (Sensipar) 30 mg BID PO Last administered on 02/25/17 08:40; Admin Dose 30 MG; Start 02/11/17 at 21:00 Clopidogrel Bisulfate (plaVIX) 75 mg DAILY PO Last administered on 02/25/17 08:39; Admin Dose 75 MG; Start 02/12/17 at 09:00 Losartan Potassium (Cozaar) 25 mg DAILY PO Last administered on 02/25/17 08: 40; Admin Dose 25 MG; Start 02/12/17 at 09:00 Metoprolol Succinate (Toprol Xl) 25 mg DAILY PO Last administered on 08:40; Admin Dose 25 MG; Start 02/12/17 at 09:00 Nifedipine (Procardia Xl) 60 mg DAILY PO Last administered on 02/25/17 08:40 ; Admin Dose 60 MG; Start 02/12/17 at 09:00 Zolpidem Tartrate (Ambien) 5 mg QHS PRN PO INSOMNIA Last administered on 22:07; Admin Dose 5 MG; Start 02/11/17 at 13:00 Acetaminophen/ Hydrocodone Bitart ([place] (5/325)) 1 tab Q4H PRN PO PAIN Last administered on 02/23/17 14:43; Admin Dose 1 TAB; Start 02/11/17 at 17:00 Clonidine (Catapres) 0.1 mg Q6H PRN PO ELEVATED SYSTOLIC BP Last administered on 02/22/17 23:51; Admin Dose 0.1 MG; Start 02/12/17 at 01:30 Epoetin Jorge Luis (Epogen (Esrd)) 4,000 units MoWeFr@17 SC Last administered on 17:01; Admin Dose 4,000 UNITS; Start 02/12/17 at 17:00 Senna (Senokot) 2 tab BID PO Last administered on 02/25/17 08:40; Admin Dose 2 TAB; Start 02/13/17 at 09:00 Metoclopramide HCl (Reglan) 5 mg Q6H PRN IV N/V Last administered on 03:35; Admin Dose 5 MG; Start 02/13/17 at 03:30 Docusate Sodium (Colace) 100 mg BID PRN PO CONSTIPATION Last administered on 15:02; Admin Dose 100 MG; Start 02/13/17 at 13:30 Bisacodyl (Dulcolax) 10 mg DAILY PRN PO CONSTIPATION Last administered on 02/24 03:52; Admin Dose 10 MG; Start 02/13/17 at 13:30 Magnesium Hydroxide (Milk Of Mag) 30 ml BID PRN PO CONSTIPATION Last administered on 02/18/17 08:20; Admin Dose 30 ML; Start 02/14/17 at 13:30 Ondansetron HCl (Zofran Inj) 4 mg Q4H PRN IV NAUSEA AND/OR VOMITING; Start at 07:30 Doxycycline Hyclate (Vibramycin) 100 mg BID PO Last administered on 02/25/17 08:39; Admin Dose 100 MG; Start 02/17/17 at 21:00 Hydrocortisone (Anusol-Hc Supp) 25 mg TID PRN MS HEMORROID PAIN/ITCHING; Start 02/17/17 at 18:00 Lactobacillus Acidophilus/ Rhamnosus (Culturelle) 1 cap BID PO Last administered on 02/24/17 20:33; Admin Dose 1 CAP; Start 02/18/17 at 21:00 Morphine Sulfate (Ms Contin (Er)) 15 mg BID PO Last administered on 02/25/17 08:41; Admin Dose 15 MG; Start 02/20/17 at 21:00 Morphine Sulfate (morphine) 4 mg Q3H PRN IV PAIN LEVEL 7-10 Last administered on 02/24/17 14:37; Admin Dose 4 MG; Start 02/20/17 at 16:30 Diphenhydramine HCl (Benadryl) 25 mg Q6H PRN PO ITCHING; Start 02/21/17 at 18: 30 VIV KING Feb 25, 2017 12:47
[2017-02-25] MEDS: LACTOBACILLUS RHAMNOSUS CAP PO SCH ×2 (13:11→20:55)
--- NOTE | 2017-02-25 13:22 | CONS ---
Date/Time of Note Date/Time of Note DATE: 02/25/17 TIME: 13:21 Consult Date/Type/Reason Admit Date/Time Feb 10, 2017 at 23:00 Initial Consult Date 02/11/17 Type of Consultation: ID Ordering Provider: POLY THRASHER MD Objective Vital Signs Date Time Temp Pulse Resp B/P Pulse Ox O2 Delivery O2 Flow Rate FiO2 02/25/17 07:54 98.6 71 18 140/71 97 02/24/17 20:15 Room Air Intake and Output 02/24/17 02/24/17 02/25/17 15:00 23:00 07:00 Intake Total 500 ml 1080 ml Output Total 3000 ml Balance -2500 ml 1080 ml Results/Medications Result Diagram: 02/25/1728 02/25/17527 Results 24 hrs Laboratory Tests Test 02/24/17 17:02 02/24/17 20:43 02/25/17 05:28 02/25/17 08:16 Bedside Glucose 81 100 74 White Blood Count 6.6 Red Blood Count 3.48 L Hemoglobin 9.3 L Hematocrit 30.5 L Mean Corpuscular Volume 87.6 Mean Corpuscular Hemoglobin 26.7 L Mean Corpuscular Hemoglobin Concent 30.5 L Red Cell Distribution Width 17.5 H Platelet Count 243 Mean Platelet Volume 10.4 Neutrophils % 71.0 Lymphocytes % 9.4 L Monocytes % 16.4 H Eosinophils % 2.1 Basophils % 0.8 Nucleated Red Blood Cells % 0.0 Neutrophils # 4.7 Lymphocytes # 0.6 L Monocytes # 1.1 H Eosinophils # 0.1 Basophils # 0.1 Nucleated Red Blood Cells # 0.0 Sodium Level 142 Potassium Level 4.9 Chloride Level 99 Carbon Dioxide Level 28 Anion Gap 20 H Blood Urea Nitrogen 40 H Creatinine 7.15 H Glucose Level 64 #L Calcium Level 8.3 L Hepatitis B Surface Antigen NEGATIVE Hepatitis B Core Total Antibody NEGATIVE Hepatitis C Antibody NEGATIVE Test 02/25/17 12:02 Bedside Glucose 101 Medications Current Medications Morphine Sulfate (morphine) 2 mg Q4H PRN IV pain Last administered on 06:38; Admin Dose 2 MG; Start 02/11/17 at 01:30 Diagnostic Test (Pha) (Accu-Chek) 1 ea 02 XX Last administered on 02/13/17 01 :35; Admin Dose 1 EA; Start 02/11/17 at 02:00 Miscellaneous Information 1 ea NOTE XX ; Start 02/11/17 at 02:00 Glucose (Glutose) 15 gm Q15M PRN PO DECREASED GLUCOSE; Start 02/11/17 at 02:00 Glucose (Glutose) 22.5 gm Q15M PRN PO DECREASED GLUCOSE; Start 02/11/17 at 02: 00 Dextrose (D50w Syringe) 25 ml Q15M PRN IV DECREASED GLUCOSE; Start 02/11/17 at 02:00 Dextrose (D50w Syringe) 50 ml Q15M PRN IV DECREASED GLUCOSE; Start 02/11/17 at 02:00 Glucagon (Glucagen) 1 mg Q15M PRN IM DECREASED GLUCOSE; Start 02/11/17 at 02: 00 Glucose (Glutose) 15 gm Q15M PRN BUCCAL DECREASED GLUCOSE; Start 02/11/17 at 02:00 Amlodipine Besylate (Norvasc) 5 mg BID PO Last administered on 02/25/17 08:41 ; Admin Dose 5 MG; Start 02/11/17 at 21:00 Atorvastatin Calcium (Lipitor) 40 mg HS PO Last administered on 02/24/17 20: 33; Admin Dose 40 MG; Start 02/11/17 at 21:00 Cinacalcet (Sensipar) 30 mg BID PO Last administered on 02/25/17 08:40; Admin Dose 30 MG; Start 02/11/17 at 21:00 Clopidogrel Bisulfate (plaVIX) 75 mg DAILY PO Last administered on 02/25/17 08:39; Admin Dose 75 MG; Start 02/12/17 at 09:00 Losartan Potassium (Cozaar) 25 mg DAILY PO Last administered on 02/25/17 08: 40; Admin Dose 25 MG; Start 02/12/17 at 09:00 Metoprolol Succinate (Toprol Xl) 25 mg DAILY PO Last administered on 08:40; Admin Dose 25 MG; Start 02/12/17 at 09:00 Nifedipine (Procardia Xl) 60 mg DAILY PO Last administered on 02/25/17 08:40 ; Admin Dose 60 MG; Start 02/12/17 at 09:00 Zolpidem Tartrate (Ambien) 5 mg QHS PRN PO INSOMNIA Last administered on 22:07; Admin Dose 5 MG; Start 02/11/17 at 13:00 Acetaminophen/ Hydrocodone Bitart ([place] (5/325)) 1 tab Q4H PRN PO PAIN Last administered on 02/23/17 14:43; Admin Dose 1 TAB; Start 02/11/17 at 17:00 Clonidine (Catapres) 0.1 mg Q6H PRN PO ELEVATED SYSTOLIC BP Last administered on 02/22/17 23:51; Admin Dose 0.1 MG; Start 02/12/17 at 01:30 Epoetin Jorge Luis (Epogen (Esrd)) 4,000 units MoWeFr@17 SC Last administered on 17:01; Admin Dose 4,000 UNITS; Start 02/12/17 at 17:00 Senna (Senokot) 2 tab BID PO Last administered on 02/25/17 08:40; Admin Dose 2 TAB; Start 02/13/17 at 09:00 Metoclopramide HCl (Reglan) 5 mg Q6H PRN IV N/V Last administered on 03:35; Admin Dose 5 MG; Start 02/13/17 at 03:30 Docusate Sodium (Colace) 100 mg BID PRN PO CONSTIPATION Last administered on 15:02; Admin Dose 100 MG; Start 02/13/17 at 13:30 Bisacodyl (Dulcolax) 10 mg DAILY PRN PO CONSTIPATION Last administered on 02/24 03:52; Admin Dose 10 MG; Start 02/13/17 at 13:30 Magnesium Hydroxide (Milk Of Mag) 30 ml BID PRN PO CONSTIPATION Last administered on 02/18/17 08:20; Admin Dose 30 ML; Start 02/14/17 at 13:30 Ondansetron HCl (Zofran Inj) 4 mg Q4H PRN IV NAUSEA AND/OR VOMITING; Start at 07:30 Doxycycline Hyclate (Vibramycin) 100 mg BID PO Last administered on 02/25/17 08:39; Admin Dose 100 MG; Start 02/17/17 at 21:00 Hydrocortisone (Anusol-Hc Supp) 25 mg TID PRN [place] HEMORROID PAIN/ITCHING; Start 02/17/17 at 18:00 Lactobacillus Acidophilus/ Rhamnosus (Culturelle) 1 cap BID PO Last administered on 02/25/17 13:11; Admin Dose 1 CAP; Start 02/18/17 at 21:00 Morphine Sulfate (Ms Contin (Er)) 15 mg BID PO Last administered on 02/25/17 08:41; Admin Dose 15 MG; Start 02/20/17 at 21:00 Morphine Sulfate (morphine) 4 mg Q3H PRN IV PAIN LEVEL 7-10 Last administered on 02/24/17 14:37; Admin Dose 4 MG; Start 02/20/17 at 16:30 Diphenhydramine HCl (Benadryl) 25 mg Q6H PRN PO ITCHING; Start 02/21/17 at 18: 30 Assessment/Plan Chief Complaint/Hosp Course SUBJECTIVE: No events, awake, looks comfortable, no fevers INDWELLINGS: Left upper extremity AV fistula. MICROBIOLOGY: Blood cultures had been negative. ANTIMICROBIALS: Doxycycline PHYSICAL EXAMINATION: GENERAL: Well-developed, chronically ill-appearing, elderly man in no distress. HEENT: Head atraumatic, normocephalic. Sclerae anicteric. Buccal mucosa dry. NECK: Supple. CHEST: Rise symmetrical. Breath sounds diminished to bases. HEART: S1, S2. ABDOMEN: Soft. Bowel tones present. EXTREMITIES: Left lower extremity gangrene. ASSESSMENT: 1. Left lower extremity dry gangrene. 2. Peripheral vascular disease. 3. End-stage renal disease, hemodialysis dependent. 4. Hypertension. 5. Constipation PLAN: The patient remains unchanged. Continue present care, HD per renal, podiatry and vascular recommendations, dc abx and observe. DW staff Problems: SHITAL MCKEON NP Feb 25, 2017 13:22
[2017-02-25 13:37] VITALS: BP 144/83; RESP 18
[2017-02-25 20:15] VITALS: BP 133/88; RESP 18
[2017-02-25] MEDS: ATORVASTATIN 40 MG TAB PO SCH (20:55)
[2017-02-26] VITALS (9 sets, daily range): BP systolic 138–168; BP diastolic 72–89; PULSE 75–77; RESP 18
[2017-02-26] MEDS: ACCU-CHEK XX SCH (02:00)
[2017-02-26] MEDS: HYDROCODONE/APAP (5/325) TAB PO PRN (03:19)
[2017-02-26 05:34] LABS: BASOPHIL # 0.1 10^3/ul (0.0-0.1); BASOPHILS % 0.8 % (0.0-2.0); EOSINOPHILS # 0.1 10^3/ul (0.0-0.5); EOSINOPHILS % 1.7 % (0.0-7.0); HEMATOCRIT 27.6 % (42.0-52.0); HEMOGLOBIN 8.3 g/dl (14.0-18.0); LYMPHOCYTES # 0.7 10^3/ul (0.8-2.9); LYMPHOCYTES % 10.1 % (15.0-51.0); MEAN CORPUSCULAR HEMOGLOBIN 25.7 pg (29.0-33.0); MEAN CORPUSCULAR HGB CONC 30.1 g/dl (32.0-37.0); MEAN CORPUSCULAR VOLUME 85.4 fl (82.0-101.0); MEAN PLATELET VOLUME 10.7 fl (7.4-10.4); MONOCYTE # 1.1 10^3/ul (0.3-0.9); MONOCYTES % 16.1 % (0.0-11.0); NEUTROPHIL # 4.7 10^3/ul (1.6-7.5); PLATELET COUNT 194 10^3/UL (140-415); RED BLOOD COUNT 3.23 10^6/ul (4.70-6.10); RED CELL DISTRIBUTION WIDTH 17.7 % (11.5-14.5); WHITE BLOOD COUNT 6.7 10^3/ul (4.8-10.8)
[2017-02-26 06:07] LABS: CALCIUM 8.3 mg/dl (8.4-10.2); CREATININE 8.95 mg/dl (0.61-1.24); POTASSIUM 5.1 mmol/L (3.5-5.1)
[2017-02-26] MEDS: INSULIN ASPART [NOVOLOG] 3 ML PEN SC SCH ×4 (08:09→20:40)
[2017-02-26] MEDS: AMLODIPINE 5 MG TAB PO SCH ×2 (08:10→20:36)
[2017-02-26] MEDS: LOSARTAN 25 MG TAB PO SCH (08:10)
[2017-02-26] MEDS: NIFEdipine (XL) 60 MG TAB PO SCH (08:11)
[2017-02-26] MEDS: METOPROLOL (XL) 25 MG TAB PO SCH (08:12)
[2017-02-26] MEDS: CINACALCET 30 MG TAB PO SCH ×2 (08:19→20:34)
[2017-02-26] MEDS: CALCIUM ACETATE 667 MG CAP PO SCH ×3 (08:20→17:32)
[2017-02-26] MEDS: LACTOBACILLUS RHAMNOSUS CAP PO SCH ×2 (08:20→20:34)
[2017-02-26] MEDS: SEVELAMER 800 MG TAB PO SCH ×3 (08:20→17:32)
[2017-02-26] MEDS: SENNA TAB PO SCH ×2 (08:20→20:33)
[2017-02-26] MEDS: morphine (ER) 15 MG TAB PO SCH ×2 (08:20→20:34)
[2017-02-26] MEDS: CLOPIDOGREL 75 MG TAB PO SCH (08:20)
--- NOTE | 2017-02-26 13:43 | CONS ---
Date/Time of Note Date/Time of Note DATE: 02/26/17 TIME: 13:42 Consult Date/Type/Reason Admit Date/Time Feb 10, 2017 at 23:00 Initial Consult Date 02/11/17 Type of Consultation: ID Ordering Provider: POLY THRASHER MD Objective Vital Signs Date Time Temp Pulse Resp B/P Pulse Ox O2 Delivery O2 Flow Rate FiO2 02/26/17 02:00 98.0 60 18 159/72 100 02/24/17 20:15 Room Air Intake and Output 02/25/17 02/25/17 02/26/17 15:00 23:00 07:00 Intake Total 700 ml 820 ml 250 ml Balance 700 ml 820 ml 250 ml Results/Medications Result Diagram: 02/26/1751102/26/17 0512 Results 24 hrs Laboratory Tests Test 02/25/17 17:08 02/25/17 20:59 02/26/17 05:12 02/26/17 08:03 Bedside Glucose 125 111 74 White Blood Count 6.7 Red Blood Count 3.23 L Hemoglobin 8.3 L Hematocrit 27.6 L Mean Corpuscular Volume 85.4 Mean Corpuscular Hemoglobin 25.7 L Mean Corpuscular Hemoglobin Concent 30.1 L Red Cell Distribution Width 17.7 H Platelet Count 194 # Mean Platelet Volume 10.7 H Neutrophils % 71.0 Lymphocytes % 10.1 L Monocytes % 16.1 H Eosinophils % 1.7 Basophils % 0.8 Nucleated Red Blood Cells % 0.0 Neutrophils # 4.7 Lymphocytes # 0.7 L Monocytes # 1.1 H Eosinophils # 0.1 Basophils # 0.1 Nucleated Red Blood Cells # 0.0 Sodium Level 141 Potassium Level 5.1 Chloride Level 100 Carbon Dioxide Level 29 Anion Gap 17 H Blood Urea Nitrogen 53 H Creatinine 8.95 H Glucose Level 84 Calcium Level 8.3 L Test 02/26/17 12:07 Bedside Glucose 91 Medications Current Medications Morphine Sulfate (morphine) 2 mg Q4H PRN IV pain Last administered on 06:38; Admin Dose 2 MG; Start 02/11/17 at 01:30 Diagnostic Test (Pha) (Accu-Chek) 1 ea 02 XX Last administered on 02/13/17 01 :35; Admin Dose 1 EA; Start 02/11/17 at 02:00 Miscellaneous Information 1 ea NOTE XX ; Start 02/11/17 at 02:00 Glucose (Glutose) 15 gm Q15M PRN PO DECREASED GLUCOSE; Start 02/11/17 at 02:00 Glucose (Glutose) 22.5 gm Q15M PRN PO DECREASED GLUCOSE; Start 02/11/17 at 02: 00 Dextrose (D50w Syringe) 25 ml Q15M PRN IV DECREASED GLUCOSE; Start 02/11/17 at 02:00 Dextrose (D50w Syringe) 50 ml Q15M PRN IV DECREASED GLUCOSE; Start 02/11/17 at 02:00 Glucagon (Glucagen) 1 mg Q15M PRN IM DECREASED GLUCOSE; Start 02/11/17 at 02: 00 Glucose (Glutose) 15 gm Q15M PRN BUCCAL DECREASED GLUCOSE; Start 02/11/17 at 02:00 Amlodipine Besylate (Norvasc) 5 mg BID PO Last administered on 02/25/17 20:58 ; Admin Dose 5 MG; Start 02/11/17 at 21:00 Atorvastatin Calcium (Lipitor) 40 mg HS PO Last administered on 02/25/17 20: 55; Admin Dose 40 MG; Start 02/11/17 at 21:00 Cinacalcet (Sensipar) 30 mg BID PO Last administered on 02/26/17 08:19; Admin Dose 30 MG; Start 02/11/17 at 21:00 Clopidogrel Bisulfate (plaVIX) 75 mg DAILY PO Last administered on 02/26/17 08:20; Admin Dose 75 MG; Start 02/12/17 at 09:00 Losartan Potassium (Cozaar) 25 mg DAILY PO Last administered on 02/25/17 08: 40; Admin Dose 25 MG; Start 02/12/17 at 09:00 Metoprolol Succinate (Toprol Xl) 25 mg DAILY PO Last administered on 08:40; Admin Dose 25 MG; Start 02/12/17 at 09:00 Nifedipine (Procardia Xl) 60 mg DAILY PO Last administered on 02/25/17 08:40 ; Admin Dose 60 MG; Start 02/12/17 at 09:00 Zolpidem Tartrate (Ambien) 5 mg QHS PRN PO INSOMNIA Last administered on 22:07; Admin Dose 5 MG; Start 02/11/17 at 13:00 Acetaminophen/ Hydrocodone Bitart ([place] (5/325)) 1 tab Q4H PRN PO PAIN Last administered on 02/26/17 03:19; Admin Dose 1 TAB; Start 02/11/17 at 17:00 Clonidine (Catapres) 0.1 mg Q6H PRN PO ELEVATED SYSTOLIC BP Last administered on 02/22/17 23:51; Admin Dose 0.1 MG; Start 02/12/17 at 01:30 Epoetin Jorge Luis (Epogen (Esrd)) 4,000 units MoWeFr@17 SC Last administered on 17:01; Admin Dose 4,000 UNITS; Start 02/12/17 at 17:00 Senna (Senokot) 2 tab BID PO Last administered on 02/26/17 08:20; Admin Dose 2 TAB; Start 02/13/17 at 09:00 Metoclopramide HCl (Reglan) 5 mg Q6H PRN IV N/V Last administered on 03:35; Admin Dose 5 MG; Start 02/13/17 at 03:30 Docusate Sodium (Colace) 100 mg BID PRN PO CONSTIPATION Last administered on 15:02; Admin Dose 100 MG; Start 02/13/17 at 13:30 Bisacodyl (Dulcolax) 10 mg DAILY PRN PO CONSTIPATION Last administered on 02/24 03:52; Admin Dose 10 MG; Start 02/13/17 at 13:30 Magnesium Hydroxide (Milk Of Mag) 30 ml BID PRN PO CONSTIPATION Last administered on 02/18/17 08:20; Admin Dose 30 ML; Start 02/14/17 at 13:30 Ondansetron HCl (Zofran Inj) 4 mg Q4H PRN IV NAUSEA AND/OR VOMITING; Start at 07:30 Hydrocortisone (Anusol-Hc Supp) 25 mg TID PRN [place] HEMORROID PAIN/ITCHING; Start 02/17/17 at 18:00 Lactobacillus Acidophilus/ Rhamnosus (Culturelle) 1 cap BID PO Last administered on 02/26/17 08:20; Admin Dose 1 CAP; Start 02/18/17 at 21:00 Morphine Sulfate (morphine) 4 mg Q3H PRN IV PAIN LEVEL 7-10 Last administered on 02/24/17 14:37; Admin Dose 4 MG; Start 02/20/17 at 16:30 Diphenhydramine HCl (Benadryl) 25 mg Q6H PRN PO ITCHING; Start 02/21/17 at 18: 30 Morphine Sulfate (Ms Contin (Er)) 30 mg BID PO Last administered on 02/26/17 08:20; Admin Dose 30 MG; Start 02/25/17 at 21:00 Assessment/Plan Chief Complaint/Hosp Course SUBJECTIVE: No events, awake, looks comfortable, no fevers INDWELLINGS: Left upper extremity AV fistula. MICROBIOLOGY: Blood cultures had been negative. PHYSICAL EXAMINATION: GENERAL: Well-developed, chronically ill-appearing, elderly man in no distress. HEENT: Head atraumatic, normocephalic. Sclerae anicteric. Buccal mucosa dry. NECK: Supple. CHEST: Rise symmetrical. Breath sounds diminished to bases. HEART: S1, S2. ABDOMEN: Soft. Bowel tones present. EXTREMITIES: Left lower extremity gangrene. ASSESSMENT: 1. Left lower extremity dry gangrene. 2. Peripheral vascular disease. 3. End-stage renal disease, hemodialysis dependent. 4. Hypertension. 5. Constipation PLAN: The patient remains unchanged. Continue present care, HD per renal, podiatry and vascular recommendations, observe off abx. DW staff Problems: SHITAL MCKEON NP Feb 26, 2017 13:43
--- NOTE | 2017-02-26 16:14 | PN ---
Date/Time of Note Date/Time of Note DATE: 02/26/17 TIME: 16:13 Assessment/Plan VTE Prophylaxis VTE Prophylaxis Intervention: SCD's Lines/Catheters IV Catheter Type (from [facility]): [place] Urinary Cath still in place: No Assessment/Plan Chief Complaint/Hosp Course Pain is well controlled with current MS Contin, patient remains hemodynamically stable. OK to d/c to [facility] when arranged, med recon is on the chart. Assessment/Plan - Left foot multiple gangrenous wounds. Dr. Zaragoza is following in vascular surgery consultation, Dr. Jackman is following in podiatry consultation. Dr. Tobias is following in ID consultation. Continue antibiotics per ID , continue current wound care. - End-stage renal disease, hemodialysis dependent. Dr. Newby is following in nephrology consultation. Continue on hemodialysis. - Hypertension. Continue home antihypertensive medication. Monitor blood pressure. - CAD - Permanent Pacemaker - Legally blind status. - Anemia of chronic disease. - Severe peripheral vascular disease. s/p angio with notion of severe infrapopliteal disease and pedal disease. Further recommendations based on clinical course. Plan of care discussed with Dr. French. Problems: Exam/Review of Systems Vital Signs Vitals Vital Signs Date Time Temp Pulse Resp B/P Pulse Ox O2 Delivery O2 Flow Rate FiO2 02/26/17 02:00 98.0 60 18 159/72 100 02/24/17 20:15 Room Air Intake and Output 02/25/17 02/25/17 02/26/17 15:00 23:00 07:00 Intake Total 700 ml 820 ml 250 ml Balance 700 ml 820 ml 250 ml Exam Constitutional: alert, oriented Head: normocephalic Neck: supple Respiratory: normal air movement Cardiovascular: nl pulses, other (Permanent pacemaker right groin) Gastrointestinal: non-tender, soft Extremities: normal pulses Results Result Diagram: 02/26/17 0502/26/17 05 Results 24 hrs Laboratory Tests Test 02/25/17 17:08 02/25/17 20:59 02/26/17 05:12 02/26/17 08:03 Bedside Glucose 125 111 74 White Blood Count 6.7 Red Blood Count 3.23 L Hemoglobin 8.3 L Hematocrit 27.6 L Mean Corpuscular Volume 85.4 Mean Corpuscular Hemoglobin 25.7 L Mean Corpuscular Hemoglobin Concent 30.1 L Red Cell Distribution Width 17.7 H Platelet Count 194 # Mean Platelet Volume 10.7 H Neutrophils % 71.0 Lymphocytes % 10.1 L Monocytes % 16.1 H Eosinophils % 1.7 Basophils % 0.8 Nucleated Red Blood Cells % 0.0 Neutrophils # 4.7 Lymphocytes # 0.7 L Monocytes # 1.1 H Eosinophils # 0.1 Basophils # 0.1 Nucleated Red Blood Cells # 0.0 Sodium Level 141 Potassium Level 5.1 Chloride Level 100 Carbon Dioxide Level 29 Anion Gap 17 H Blood Urea Nitrogen 53 H Creatinine 8.95 H Glucose Level 84 Calcium Level 8.3 L Test 02/26/17 12:07 Bedside Glucose 91 Medications Medications Current Medications Morphine Sulfate (morphine) 2 mg Q4H PRN IV pain Last administered on 06:38; Admin Dose 2 MG; Start 02/11/17 at 01:30 Diagnostic Test (Pha) (Accu-Chek) 1 ea 02 XX Last administered on 02/13/17 01 :35; Admin Dose 1 EA; Start 02/11/17 at 02:00 Miscellaneous Information 1 ea NOTE XX ; Start 02/11/17 at 02:00 Glucose (Glutose) 15 gm Q15M PRN PO DECREASED GLUCOSE; Start 02/11/17 at 02:00 Glucose (Glutose) 22.5 gm Q15M PRN PO DECREASED GLUCOSE; Start 02/11/17 at 02: 00 Dextrose (D50w Syringe) 25 ml Q15M PRN IV DECREASED GLUCOSE; Start 02/11/17 at 02:00 Dextrose (D50w Syringe) 50 ml Q15M PRN IV DECREASED GLUCOSE; Start 02/11/17 at 02:00 Glucagon (Glucagen) 1 mg Q15M PRN IM DECREASED GLUCOSE; Start 02/11/17 at 02: 00 Glucose (Glutose) 15 gm Q15M PRN BUCCAL DECREASED GLUCOSE; Start 02/11/17 at 02:00 Amlodipine Besylate (Norvasc) 5 mg BID PO Last administered on 02/25/17 20:58 ; Admin Dose 5 MG; Start 02/11/17 at 21:00 Atorvastatin Calcium (Lipitor) 40 mg HS PO Last administered on 02/25/17 20: 55; Admin Dose 40 MG; Start 02/11/17 at 21:00 Cinacalcet (Sensipar) 30 mg BID PO Last administered on 02/26/17 08:19; Admin Dose 30 MG; Start 02/11/17 at 21:00 Clopidogrel Bisulfate (plaVIX) 75 mg DAILY PO Last administered on 02/26/17 08:20; Admin Dose 75 MG; Start 02/12/17 at 09:00 Losartan Potassium (Cozaar) 25 mg DAILY PO Last administered on 02/25/17 08: 40; Admin Dose 25 MG; Start 02/12/17 at 09:00 Metoprolol Succinate (Toprol Xl) 25 mg DAILY PO Last administered on 08:40; Admin Dose 25 MG; Start 02/12/17 at 09:00 Nifedipine (Procardia Xl) 60 mg DAILY PO Last administered on 02/25/17 08:40 ; Admin Dose 60 MG; Start 02/12/17 at 09:00 Zolpidem Tartrate (Ambien) 5 mg QHS PRN PO INSOMNIA Last administered on 22:07; Admin Dose 5 MG; Start 02/11/17 at 13:00 Acetaminophen/ Hydrocodone Bitart ([place] (5/325)) 1 tab Q4H PRN PO PAIN Last administered on 02/26/17 03:19; Admin Dose 1 TAB; Start 02/11/17 at 17:00 Clonidine (Catapres) 0.1 mg Q6H PRN PO ELEVATED SYSTOLIC BP Last administered on 02/22/17 23:51; Admin Dose 0.1 MG; Start 02/12/17 at 01:30 Epoetin Jorge Luis (Epogen (Esrd)) 4,000 units MoWeFr@17 SC Last administered on 17:01; Admin Dose 4,000 UNITS; Start 02/12/17 at 17:00 Senna (Senokot) 2 tab BID PO Last administered on 02/26/17 08:20; Admin Dose 2 TAB; Start 02/13/17 at 09:00 Metoclopramide HCl (Reglan) 5 mg Q6H PRN IV N/V Last administered on 03:35; Admin Dose 5 MG; Start 02/13/17 at 03:30 Docusate Sodium (Colace) 100 mg BID PRN PO CONSTIPATION Last administered on 15:02; Admin Dose 100 MG; Start 02/13/17 at 13:30 Bisacodyl (Dulcolax) 10 mg DAILY PRN PO CONSTIPATION Last administered on 02/24 03:52; Admin Dose 10 MG; Start 02/13/17 at 13:30 Magnesium Hydroxide (Milk Of Mag) 30 ml BID PRN PO CONSTIPATION Last administered on 02/18/17 08:20; Admin Dose 30 ML; Start 02/14/17 at 13:30 Ondansetron HCl (Zofran Inj) 4 mg Q4H PRN IV NAUSEA AND/OR VOMITING; Start at 07:30 Hydrocortisone (Anusol-Hc Supp) 25 mg TID PRN [place] HEMORROID PAIN/ITCHING; Start 02/17/17 at 18:00 Lactobacillus Acidophilus/ Rhamnosus (Culturelle) 1 cap BID PO Last administered on 02/26/17 08:20; Admin Dose 1 CAP; Start 02/18/17 at 21:00 Morphine Sulfate (morphine) 4 mg Q3H PRN IV PAIN LEVEL 7-10 Last administered on 02/24/17 14:37; Admin Dose 4 MG; Start 02/20/17 at 16:30 Diphenhydramine HCl (Benadryl) 25 mg Q6H PRN PO ITCHING; Start 02/21/17 at 18: 30 Morphine Sulfate (Ms Contin (Er)) 30 mg BID PO Last administered on 02/26/17 08:20; Admin Dose 30 MG; Start 02/25/17 at 21:00 VIV KING Feb 26, 2017 16:14
[2017-02-26] MEDS: EPOETIN 4000 UNITS/1 ML INJ (ESRD) SC SCH (17:33)
[2017-02-26] MEDS: ATORVASTATIN 40 MG TAB PO SCH (20:33)
--- NOTE | 2017-02-26 20:40 | CONS ---
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 Exam/Review of Systems Vital Signs Vitals Vital Signs Date Time Temp Pulse Resp B/P Pulse Ox O2 Delivery O2 Flow Rate FiO2 02/26/17 16:30 77 02/26/17 16:30 16 02/26/17 02:00 98.0 159/72 100 02/24/17 20:15 Room Air Intake and Output 02/25/17 02/25/17 02/26/17 15:00 23:00 07:00 Intake Total 700 ml 820 ml 250 ml Balance 700 ml 820 ml 250 ml Exam Constitutional: alert, oriented, well developed Psych: nl mood/affect, no complaints Head: atraumatic, normocephalic Eyes: EOMI, PERRL, nl conjunctiva, nl lids, nl sclera, other (Pt is completely blind) ENMT: nl external ears & nose, nl lips & teeth, nl nasal mucosa & septum Neck: non-tender, supple Respiratory: clear to auscultation, normal air movement Cardiovascular: nl pulses, regular rate and rhythm Gastrointestinal: nl liver, spleen, non-tender, soft Musculoskeletal: nl extremities to inspection, nl gait and stance Extremities: normal pulses, other Neurological: PROMOTION MANAGER II-XII intact, nl mental status, nl speech, nl strength Skin: nl turgor, No rash or lesions Lymph: nl lymph nodes Results Hct & Chemistry from 02/25 stable Result Diagram: 02/26/1751102/26/1712 Results 24 hrs Laboratory Tests Test 02/25/17 20:59 02/26/17 05:12 02/26/17 08:03 02/26/17 12:07 Bedside Glucose 111 74 91 White Blood Count 6.7 Red Blood Count 3.23 L Hemoglobin 8.3 L Hematocrit 27.6 L Mean Corpuscular Volume 85.4 Mean Corpuscular Hemoglobin 25.7 L Mean Corpuscular Hemoglobin Concent 30.1 L Red Cell Distribution Width 17.7 H Platelet Count 194 # Mean Platelet Volume 10.7 H Neutrophils % 71.0 Lymphocytes % 10.1 L Monocytes % 16.1 H Eosinophils % 1.7 Basophils % 0.8 Nucleated Red Blood Cells % 0.0 Neutrophils # 4.7 Lymphocytes # 0.7 L Monocytes # 1.1 H Eosinophils # 0.1 Basophils # 0.1 Nucleated Red Blood Cells # 0.0 Sodium Level 141 Potassium Level 5.1 Chloride Level 100 Carbon Dioxide Level 29 Anion Gap 17 H Blood Urea Nitrogen 53 H Creatinine 8.95 H Glucose Level 84 Calcium Level 8.3 L Test 02/26/17 17:29 Bedside Glucose 82 Medications Medications Current Medications Morphine Sulfate (morphine) 2 mg Q4H PRN IV pain Last administered on 06:38; Admin Dose 2 MG; Start 02/11/17 at 01:30 Diagnostic Test (Pha) (Accu-Chek) 1 ea 02 XX Last administered on 02/13/17 01 :35; Admin Dose 1 EA; Start 02/11/17 at 02:00 Miscellaneous Information 1 ea NOTE XX ; Start 02/11/17 at 02:00 Glucose (Glutose) 15 gm Q15M PRN PO DECREASED GLUCOSE; Start 02/11/17 at 02:00 Glucose (Glutose) 22.5 gm Q15M PRN PO DECREASED GLUCOSE; Start 02/11/17 at 02: 00 Dextrose (D50w Syringe) 25 ml Q15M PRN IV DECREASED GLUCOSE; Start 02/11/17 at 02:00 Dextrose (D50w Syringe) 50 ml Q15M PRN IV DECREASED GLUCOSE; Start 02/11/17 at 02:00 Glucagon (Glucagen) 1 mg Q15M PRN IM DECREASED GLUCOSE; Start 02/11/17 at 02: 00 Glucose (Glutose) 15 gm Q15M PRN BUCCAL DECREASED GLUCOSE; Start 02/11/17 at 02:00 Amlodipine Besylate (Norvasc) 5 mg BID PO Last administered on 02/25/17 20:58 ; Admin Dose 5 MG; Start 02/11/17 at 21:00 Atorvastatin Calcium (Lipitor) 40 mg HS PO Last administered on 02/25/17 20: 55; Admin Dose 40 MG; Start 02/11/17 at 21:00 Cinacalcet (Sensipar) 30 mg BID PO Last administered on 02/26/17 08:19; Admin Dose 30 MG; Start 02/11/17 at 21:00 Clopidogrel Bisulfate (plaVIX) 75 mg DAILY PO Last administered on 02/26/17 08:20; Admin Dose 75 MG; Start 02/12/17 at 09:00 Losartan Potassium (Cozaar) 25 mg DAILY PO Last administered on 02/25/17 08: 40; Admin Dose 25 MG; Start 02/12/17 at 09:00 Metoprolol Succinate (Toprol Xl) 25 mg DAILY PO Last administered on 08:40; Admin Dose 25 MG; Start 02/12/17 at 09:00 Nifedipine (Procardia Xl) 60 mg DAILY PO Last administered on 02/25/17 08:40 ; Admin Dose 60 MG; Start 02/12/17 at 09:00 Zolpidem Tartrate (Ambien) 5 mg QHS PRN PO INSOMNIA Last administered on 22:07; Admin Dose 5 MG; Start 02/11/17 at 13:00 Acetaminophen/ Hydrocodone Bitart ([place] (5/325)) 1 tab Q4H PRN PO PAIN Last administered on 02/26/17 03:19; Admin Dose 1 TAB; Start 02/11/17 at 17:00 Clonidine (Catapres) 0.1 mg Q6H PRN PO ELEVATED SYSTOLIC BP Last administered on 02/22/17 23:51; Admin Dose 0.1 MG; Start 02/12/17 at 01:30 Epoetin Jorge Luis (Epogen (Esrd)) 4,000 units MoWeFr@17 SC Last administered on 17:33; Admin Dose 4,000 UNITS; Start 02/12/17 at 17:00 Senna (Senokot) 2 tab BID PO Last administered on 02/26/17 08:20; Admin Dose 2 TAB; Start 02/13/17 at 09:00 Metoclopramide HCl (Reglan) 5 mg Q6H PRN IV N/V Last administered on 03:35; Admin Dose 5 MG; Start 02/13/17 at 03:30 Docusate Sodium (Colace) 100 mg BID PRN PO CONSTIPATION Last administered on 15:02; Admin Dose 100 MG; Start 02/13/17 at 13:30 Bisacodyl (Dulcolax) 10 mg DAILY PRN PO CONSTIPATION Last administered on 02/24 03:52; Admin Dose 10 MG; Start 02/13/17 at 13:30 Magnesium Hydroxide (Milk Of Mag) 30 ml BID PRN PO CONSTIPATION Last administered on 02/18/17 08:20; Admin Dose 30 ML; Start 02/14/17 at 13:30 Ondansetron HCl (Zofran Inj) 4 mg Q4H PRN IV NAUSEA AND/OR VOMITING; Start at 07:30 Hydrocortisone (Anusol-Hc Supp) 25 mg TID PRN [place] HEMORROID PAIN/ITCHING; Start 02/17/17 at 18:00 Lactobacillus Acidophilus/ Rhamnosus (Culturelle) 1 cap BID PO Last administered on 02/26/17 08:20; Admin Dose 1 CAP; Start 02/18/17 at 21:00 Morphine Sulfate (morphine) 4 mg Q3H PRN IV PAIN LEVEL 7-10 Last administered on 02/24/17 14:37; Admin Dose 4 MG; Start 02/20/17 at 16:30 Diphenhydramine HCl (Benadryl) 25 mg Q6H PRN PO ITCHING Last administered on 18:24; Admin Dose 25 MG; Start 02/21/17 at 18:30 Morphine Sulfate (Ms Contin (Er)) 30 mg BID PO Last administered on 02/26/17 08:20; Admin Dose 30 MG; Start 02/25/17 at 21:00 SHU WHYTE MD Feb 26, 2017 20:35
[2017-02-26] MEDS ORDERED: EPOETIN 3000 UNITS/1 ML INJ (ESRD) SC ONE (21:00)
[2017-02-27] MEDS: ACCU-CHEK XX SCH (01:27)
[2017-02-27 02:22] VITALS: BP 140/71; RESP 18
[2017-02-27 08:00] VITALS: BP 147/67; PULSE 68; RESP 16
[2017-02-27] MEDS: SEVELAMER 800 MG TAB PO SCH ×3 (08:09→18:13)
[2017-02-27] MEDS: CALCIUM ACETATE 667 MG CAP PO SCH ×3 (08:09→18:13)
[2017-02-27] MEDS: CLOPIDOGREL 75 MG TAB PO SCH (08:09)
[2017-02-27] MEDS: morphine (ER) 15 MG TAB PO SCH (08:11)
[2017-02-27] MEDS: CINACALCET 30 MG TAB PO SCH (08:12)
[2017-02-27] MEDS: NIFEdipine (XL) 60 MG TAB PO SCH (08:12)
[2017-02-27] MEDS: SENNA TAB PO SCH (08:12)
[2017-02-27] MEDS: LACTOBACILLUS RHAMNOSUS CAP PO SCH (08:13)
[2017-02-27] MEDS: AMLODIPINE 5 MG TAB PO SCH (08:13)
[2017-02-27] MEDS: INSULIN ASPART [NOVOLOG] 3 ML PEN SC SCH ×3 (08:15→18:00)
[2017-02-27] MEDS: LOSARTAN 25 MG TAB PO SCH (08:17)
[2017-02-27] MEDS: METOPROLOL (XL) 25 MG TAB PO SCH (08:17)
--- NOTE | 2017-02-27 13:01 | DS ---
Date/Time of Note Date/Time of Note DATE: 02/27/17 TIME: 13:00 Discharge Summary Admission/Discharge Info Admit Date/Time Feb 10, 2017 at 23:00 Discharge Date/Time Patient Condition: Stable Hospital Course Pt continues to get IV Antibiotics, not clear for what reason Home Meds Active Scripts Metoprolol Tartrate* (Lopressor*) 50 Mg Tab, 50 MG PO BID for 30 Days, TAB Prov:HARLEYATILIOSHANTALVIV 11/20/16 Atorvastatin* (Atorvastatin*) 40 Mg Tablet, 40 MG PO HS for 30 Days, TAB Prov:RADCHENSHANTALVIV 11/20/16 Clopidogrel Bisulfate (Clopidogrel) 75 Mg Tablet, 75 MG PO DAILY for 30 Days, TAB 2 Refills Prov:FERNANDOVIV 11/20/16 Sevelamer Hcl* (Renagel*) 800 Mg Tab, 800 MG PO WITH MEALS, #90 Prov:FERNANDOVIV 01/20/15 Reported Medications Metoprolol Succinate* (Toprol XL*) 25 Mg Tab.sr.24h, 25 MG PO DAILY, #30 TAB 11/12/16 Losartan Potassium* (Losartan Potassium*) 25 Mg Tablet, 25 MG PO DAILY, TAB 11/12/16 Amlodipine Besylate* (Norvasc*) 5 Mg Tablet, 5 MG PO BID, TAB 11/12/16 Nifedipine* (Afeditab CR*) 60 Mg Tablet.er, 60 MG PO DAILY, #30 TAB.SA 06/07/16 Zolpidem Tartrate* (Zolpidem Tartrate*) 5 Mg Tablet, 5 MG PO QHS Y for INSOMNIA , #30 TAB 06/07/16 Calcium Acetate* (Calcium Acetate*) 667 Mg Capsule, 667 MG PO WITH MEALS, #30 CAP 03/12/16 Cinacalcet* (Sensipar*) 30 Mg Tab, 30 MG PO BID, TAB 03/12/16 Primary Care Provider Joaquin Newby MD Time spent on discharge: < 30 minutes Pending Labs Laboratory Tests Test 02/26/17 17:29 02/26/17 20:38 02/27/17 08:06 02/27/17 12:05 Bedside Glucose 82mg/dL (70-220) 187mg/dL (70-220) 91mg/dL (70-220) 86mg/dL (70-220) IHSAN SULLIVAN Feb 27, 2017 13:01
--- NOTE | 2017-02-27 13:04 | DS ---
Date/Time of Note Date/Time of Note DATE: 02/27/17 TIME: 13:04 Discharge Summary Admission/Discharge Info Admit Date/Time Feb 10, 2017 at 23:00 Discharge Date/Time Hospital Course Pt continues to get IV Antibiotics, not clear for what reason Home Meds Active Scripts Metoprolol Tartrate* (Lopressor*) 50 Mg Tab, 50 MG PO BID for 30 Days, TAB Prov:HARLEYATILIOSHANTALVIV 11/20/16 Atorvastatin* (Atorvastatin*) 40 Mg Tablet, 40 MG PO HS for 30 Days, TAB Prov:RADCHENSHANTALVIV 11/20/16 Clopidogrel Bisulfate (Clopidogrel) 75 Mg Tablet, 75 MG PO DAILY for 30 Days, TAB 2 Refills Prov:FERNANDOVIV 11/20/16 Sevelamer Hcl* (Renagel*) 800 Mg Tab, 800 MG PO WITH MEALS, #90 Prov:HARLEYATILIOSHANTALVIV 01/20/15 Reported Medications Metoprolol Succinate* (Toprol XL*) 25 Mg Tab.sr.24h, 25 MG PO DAILY, #30 TAB 11/12/16 Losartan Potassium* (Losartan Potassium*) 25 Mg Tablet, 25 MG PO DAILY, TAB 11/12/16 Amlodipine Besylate* (Norvasc*) 5 Mg Tablet, 5 MG PO BID, TAB 11/12/16 Nifedipine* (Afeditab CR*) 60 Mg Tablet.er, 60 MG PO DAILY, #30 TAB.SA 06/07/16 Zolpidem Tartrate* (Zolpidem Tartrate*) 5 Mg Tablet, 5 MG PO QHS Y for INSOMNIA , #30 TAB 06/07/16 Calcium Acetate* (Calcium Acetate*) 667 Mg Capsule, 667 MG PO WITH MEALS, #30 CAP 03/12/16 Cinacalcet* (Sensipar*) 30 Mg Tab, 30 MG PO BID, TAB 03/12/16 Primary Care Provider Joaquin Newby MD Pending Labs Laboratory Tests Test 02/26/17 17:29 02/26/17 20:38 02/27/17 08:06 02/27/17 12:05 Bedside Glucose 82mg/dL (70-220) 187mg/dL (70-220) 91mg/dL (70-220) 86mg/dL (70-220) IHSAN SULLIVAN Feb 27, 2017 13:04
--- NOTE | 2017-02-27 13:05 | PDOCDIS ---
Discharge Instructions CONDITION Patient Condition: Stable HOME CARE INSTRUCTIONS: Special Diet: Renal/ Carb ACTIVITY: Activity Restrictions: Slowly Increase Activity Rest between Activity Avoid heavy lifting Do not Drive Do not operate Machinery Do not operate Power Tool Avoid Heavy Housework Bathing Restrictions: Sponge Bath FOLLOW UP/APPOINTMENTS Follow-up Plan Fu WITH pmd X 1 WEEK Call 911 or send him to nearest hospital if symptoms get worse. Alvarado Reyes/ staff/ patient IHSAN SULLIVAN Feb 27, 2017 13:05
[2017-02-27 13:57] VITALS: BP_SYST 156; BP_SYST 174; BP_DIAS 66; BP_DIAS 84; RESP 16
--- NOTE | 2017-02-27 14:55 | CONS ---
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 [id number] s/p HD Cont MWF, Cont current treatment and plan. [id number] HD today, Cont current treatment and plan [id number] Cont current treatment and plan, HD MWF, Next HD tomorrow. Electrolytes ok Consultation Date/Type/Reason Admit Date/Time Feb 10, 2017 at 23:00 Initial Consult Date 02/11/17 Type of Consultation: Renal Referring Provider: POLY THRASHER MD 24 HR Interval Summary Free Text/Dictation No new complaints Constitutional: No requiring O2 Exam/Review of Systems Vital Signs Vitals Vital Signs Date Time Temp Pulse Resp B/P Pulse Ox O2 Delivery O2 Flow Rate FiO2 02/27/17 13:57 97.9 60 16 156/66 94 02/27/17 08:00 Room Air Intake and Output 02/26/17 02/26/17 02/27/17 15:00 23:00 07:00 Intake Total 660 ml 200 ml Output Total 3300 ml Balance -2640 ml 200 ml Exam Constitutional: alert, No distress ENMT: mucosa pink and moist Respiratory: clear to auscultation, No crackles/rales Cardiovascular: regular rate and rhythm, No edema Gastrointestinal: non-tender, soft Neurological: PINMAKER II-XII intact, lethargic, nl mental status Skin: No diaphoresis Results Result Diagram: 02/26/1751102/26/17511 Results 24 hrs Laboratory Tests Test 02/26/17 17:29 02/26/17 20:38 02/27/17 08:06 02/27/17 12:05 Bedside Glucose 82 187 91 86 Medications Medications Current Medications Morphine Sulfate (morphine) 2 mg Q4H PRN IV pain Last administered on t 06:38; Admin Dose 2 MG; Start 02/11/17 at 01:30 Diagnostic Test (Pha) (Accu-Chek) 1 ea 02 XX Last administered on 02/13/17 01 :35; Admin Dose 1 EA; Start 02/11/17 at 02:00 Miscellaneous Information 1 ea NOTE XX ; Start 02/11/17 at 02:00 Glucose (Glutose) 15 gm Q15M PRN PO DECREASED GLUCOSE; Start 02/11/17 at 02:00 Glucose (Glutose) 22.5 gm Q15M PRN PO DECREASED GLUCOSE; Start 02/11/17 at 02: 00 Dextrose (D50w Syringe) 25 ml Q15M PRN IV DECREASED GLUCOSE; Start 02/11/17 at 02:00 Dextrose (D50w Syringe) 50 ml Q15M PRN IV DECREASED GLUCOSE; Start 02/11/17 at 02:00 Glucagon (Glucagen) 1 mg Q15M PRN IM DECREASED GLUCOSE; Start 02/11/17 at 02: 00 Glucose (Glutose) 15 gm Q15M PRN BUCCAL DECREASED GLUCOSE; Start 02/11/17 at 02:00 Amlodipine Besylate (Norvasc) 5 mg BID PO Last administered on 02/27/17 08:13 ; Admin Dose 5 MG; Start 02/11/17 at 21:00 Atorvastatin Calcium (Lipitor) 40 mg HS PO Last administered on 02/26/17 20: 33; Admin Dose 40 MG; Start 02/11/17 at 21:00 Cinacalcet (Sensipar) 30 mg BID PO Last administered on 02/27/17 08:12; Admin Dose 30 MG; Start 02/11/17 at 21:00 Clopidogrel Bisulfate (plaVIX) 75 mg DAILY PO Last administered on 02/27/17 08:09; Admin Dose 75 MG; Start 02/12/17 at 09:00 Losartan Potassium (Cozaar) 25 mg DAILY PO Last administered on 02/27/17 08: 17; Admin Dose 25 MG; Start 02/12/17 at 09:00 Metoprolol Succinate (Toprol Xl) 25 mg DAILY PO Last administered on 08:17; Admin Dose 25 MG; Start 02/12/17 at 09:00 Nifedipine (Procardia Xl) 60 mg DAILY PO Last administered on 02/27/17 08:12 ; Admin Dose 60 MG; Start 02/12/17 at 09:00 Zolpidem Tartrate (Ambien) 5 mg QHS PRN PO INSOMNIA Last administered on 22:07; Admin Dose 5 MG; Start 02/11/17 at 13:00 Acetaminophen/ Hydrocodone Bitart ([place] (5/325)) 1 tab Q4H PRN PO PAIN Last administered on 02/26/17 03:19; Admin Dose 1 TAB; Start 02/11/17 at 17:00 Clonidine (Catapres) 0.1 mg Q6H PRN PO ELEVATED SYSTOLIC BP Last administered on 02/22/17 23:51; Admin Dose 0.1 MG; Start 02/12/17 at 01:30 Epoetin Jorge Luis (Epogen (Esrd)) 4,000 units MoWeFr@17 SC Last administered on 17:33; Admin Dose 4,000 UNITS; Start 02/12/17 at 17:00 Senna (Senokot) 2 tab BID PO Last administered on 02/26/17 20:33; Admin Dose 2 TAB; Start 02/13/17 at 09:00 Metoclopramide HCl (Reglan) 5 mg Q6H PRN IV N/V Last administered on 03:35; Admin Dose 5 MG; Start 02/13/17 at 03:30 Docusate Sodium (Colace) 100 mg BID PRN PO CONSTIPATION Last administered on 15:02; Admin Dose 100 MG; Start 02/13/17 at 13:30 Bisacodyl (Dulcolax) 10 mg DAILY PRN PO CONSTIPATION Last administered on 02/24 03:52; Admin Dose 10 MG; Start 02/13/17 at 13:30 Magnesium Hydroxide (Milk Of Mag) 30 ml BID PRN PO CONSTIPATION Last administered on 02/18/17 08:20; Admin Dose 30 ML; Start 02/14/17 at 13:30 Ondansetron HCl (Zofran Inj) 4 mg Q4H PRN IV NAUSEA AND/OR VOMITING; Start at 07:30 Hydrocortisone (Anusol-Hc Supp) 25 mg TID PRN [place] HEMORROID PAIN/ITCHING; Start 02/17/17 at 18:00 Lactobacillus Acidophilus/ Rhamnosus (Culturelle) 1 cap BID PO Last administered on 02/27/17 08:13; Admin Dose 1 CAP; Start 02/18/17 at 21:00 Morphine Sulfate (morphine) 4 mg Q3H PRN IV PAIN LEVEL 7-10 Last administered on 02/24/17 14:37; Admin Dose 4 MG; Start 02/20/17 at 16:30 Diphenhydramine HCl (Benadryl) 25 mg Q6H PRN PO ITCHING Last administered on 18:24; Admin Dose 25 MG; Start 02/21/17 at 18:30 Morphine Sulfate (Ms Contin (Er)) 30 mg BID PO Last administered on 02/26/17 20:34; Admin Dose 30 MG; Start 02/25/17 at 21:00 PIPER FELIX MD Feb 27, 2017 14:55
[2017-02-27 19:35] VITALS: BP 135/75; RESP 20
== END 2017-02-27 19:45 | DRG 299 ==
LOC: E/R 20:22 → MS1 23:00 → MS2 02-11 00:48 → TEL 02-14 15:59 → MS2 02-20 22:13
PROVIDERS: ADMIT Internal Medicine; ATTEND Internal Medicine
PROC: 5A1D70Z Performance of Urinary Filtration, Intermittent, Less than 6 Hours Per Day (ICD-10-PCS; 2017-02-12)
PROC: 5A1D70Z Performance of Urinary Filtration, Intermittent, Less than 6 Hours Per Day (ICD-10-PCS; 2017-02-14)
PROC: 5A1D70Z Performance of Urinary Filtration, Intermittent, Less than 6 Hours Per Day (ICD-10-PCS; 2017-02-17)
PROC: B410YZZ Fluoroscopy of Abdominal Aorta using Other Contrast (ICD-10-PCS; principal; 2017-02-17 07:30)
PROC: B41GYZZ Fluoroscopy of Left Lower Extremity Arteries using Other Contrast (ICD-10-PCS; 2017-02-17 07:30)
PROC: 5A1D70Z Performance of Urinary Filtration, Intermittent, Less than 6 Hours Per Day (ICD-10-PCS; 2017-02-19)
PROC: 5A1D70Z Performance of Urinary Filtration, Intermittent, Less than 6 Hours Per Day (ICD-10-PCS; 2017-02-21)
PROC: 5A1D70Z Performance of Urinary Filtration, Intermittent, Less than 6 Hours Per Day (ICD-10-PCS; 2017-02-23)
PROC: 5A1D70Z Performance of Urinary Filtration, Intermittent, Less than 6 Hours Per Day (ICD-10-PCS; 2017-02-24)
PROC: 5A1D70Z Performance of Urinary Filtration, Intermittent, Less than 6 Hours Per Day (ICD-10-PCS; 2017-02-26)
DX: E11.52 Type 2 diabetes mellitus with diabetic peripheral angiopathy with gangrene (principal); N18.6 End stage renal disease; E11.22 Type 2 diabetes mellitus with diabetic chronic kidney disease; I70.262 Atherosclerosis of native arteries of extremities with gangrene, left leg; I12.0 Hypertensive chronic kidney disease with stage 5 chronic kidney disease or end stage renal disease; I70.201 Unspecified atherosclerosis of native arteries of extremities, right leg; E87.5 Hyperkalemia; D63.1 Anemia in chronic kidney disease; Z99.2 Dependence on renal dialysis; H54.8 Legal blindness, as defined in USA; E78.5 Hyperlipidemia, unspecified; K59.00 Constipation, unspecified; E11.42 Type 2 diabetes mellitus with diabetic polyneuropathy; R23.0 Cyanosis; Z95.0 Presence of cardiac pacemaker; Z87.891 Personal history of nicotine dependence; Z79.02 Long term (current) use of antithrombotics/antiplatelets
CPT/HCPCS: 36415; 71010; 74000; 75625; 80048; 80053; 80202; 82962; 83036; 83690; 84100; 84484; 85025; 86704; 86709; 86803; 87040; 87081; 87340; 90686; 90935; 93922; 93931; 96374; 96375; C1894; J0692; J0886; J1170; J1644; J1815; J2250; J2270; J2405; J2543; J2765; J3010; J3370; Q4081; Q9967

== ENCOUNTER 2017-03-24 10:54 | Inpatient (IN) | payer MEDICARE, OTHER ==
[~2017-03-24] VITALS: Ht 177.8 cm; Wt 65.0 kg
[2017-03-24 12:09] LABS: ABNORMAL IP MESSAGE 1; BASOPHILS % 0.4 % (0.0-2.0); EOSINOPHILS # 0.1 10^3/ul (0.0-0.5); EOSINOPHILS % 1.1 % (0.0-7.0); HEMATOCRIT 31.7 % (42.0-52.0); LYMPHOCYTES # 0.6 10^3/ul (0.8-2.9); LYMPHOCYTES % 5.3 % (15.0-51.0); MEAN CORPUSCULAR HEMOGLOBIN 26.5 pg (29.0-33.0); MEAN CORPUSCULAR HGB CONC 31.5 g/dl (32.0-37.0); MEAN CORPUSCULAR VOLUME 84.1 fl (82.0-101.0); MEAN PLATELET VOLUME 8.9 fl (7.4-10.4); MONOCYTE # 0.8 10^3/ul (0.3-0.9); NEUTROPHIL # 9.5 10^3/ul (1.6-7.5); NEUTROPHILS % 85.7 % (39.0-77.0); PLATELET COUNT 301 10^3/UL (140-415); POSITIVE DIFF @See below; RED BLOOD COUNT 3.77 10^6/ul (4.70-6.10); RED CELL DISTRIBUTION WIDTH 20.5 % (11.5-14.5)
--- NOTE | 2017-03-24 12:25 | RADRPT ---
PROCEDURE: XR Chest. CLINICAL INDICATION: Chest pain TECHNIQUE: A single portable view of the chest was obtained. COMPARISON: 02/11/2017 FINDINGS: Previous noted hemodialysis catheter is no longer visualized. The aorta is tortuous and atherosclero tic. The cardiomediastinal silhouette is otherwise enlarged. Diffuse pulmonary vascular congestion is seen with underlying pulmonary edema. Bilateral pleural effusions are seen. The soft tissues and osseous structures demonstrate benign age related senescent changes. IMPRESSION: Radiographic findings consistent with congestive heart failure as described above. The possibility o f underlying infiltrate from pneumonia cannot be completely excluded. Continued follow-up is suggest ed. RPTAT: HPNM Physician Kwesi Date Time Electronically viewed and signed by Physician Kwesi on 03/24/2017 12:24 /
[2017-03-24 12:27] LABS: INR 1.31; PROTIME 16.4 Sec (12.2-14.2); PT RATIO 1.3
--- NOTE | 2017-03-24 12:27 | ERD ---
ER Documentation Chief Complaint Chief Complaint SENT BY SNF FOR SOB AND LOW O2 HPI This is a 61-year-old man with a history of hypertension, hyperlipidemia, diabetes, coronary artery disease, peripheral vascular disease status post previous stenting and currently on Plavix, end-stage renal disease on dialysis Friday//Friday, anemia of chronic disease, who is presenting with chest pain, dyspnea and hypoxia this morning. The patient stays at a senior care facility and his oxygen levels were found to be low. An ambulance was called for the patient to be evaluated for this. Upon shift leader arrival, they found his O2 sat to be 88% on room air. He was placed on 2 L, and this increased to 100%. He last got dialysis 2 days ago. Patient reports feeling generally unwell. This is chronic for him. He has horrible peripheral vascular disease with chronic chest pains and leg pains, especially in his left lower extremity where he has dry gangrene and necrosis of the left foot. This is been worked up in the past and does not appear infected today. The patient's pain is not worsened today, but he does note that it is exquisite. The patient denies fever or chills. The patient has had no headache or vision changes. The patient does not endorse neck or back pain. The patient denies lightheadedness or dizziness. The patient denies nausea or vomiting. The patient endorses chronic abdominal discomfort but no changes to bowel movements or urination. The patient has had no new focal deficits. He has decreased sensation to the left foot related to his gangrenous necrosis. The patient is blind. ROS All systems reviewed and are negative except as per history of present illness. Medications Home Meds Active Scripts Metoprolol Tartrate* (Lopressor*) 50 Mg Tab, 50 MG PO BID for 30 Days, TAB Prov:VIV KING 11/20/16 Atorvastatin* (Atorvastatin*) 40 Mg Tablet, 40 MG PO HS for 30 Days, TAB Prov:VIV KING 11/20/16 Clopidogrel Bisulfate (Clopidogrel) 75 Mg Tablet, 75 MG PO DAILY for 30 Days, TAB 2 Refills Prov:VIV KING 11/20/16 Sevelamer Hcl* (Renagel*) 800 Mg Tab, 800 MG PO WITH MEALS, #90 Prov:VIV KING 01/20/15 Reported Medications Metoprolol Succinate* (Toprol XL*) 25 Mg Tab.sr.24h, 25 MG PO DAILY, #30 TAB 11/12/16 Losartan Potassium* (Losartan Potassium*) 25 Mg Tablet, 25 MG PO DAILY, TAB 11/12/16 Amlodipine Besylate* (Norvasc*) 5 Mg Tablet, 5 MG PO BID, TAB 11/12/16 Nifedipine* (Afeditab CR*) 60 Mg Tablet.er, 60 MG PO DAILY, #30 TAB.SA 06/07/16 Zolpidem Tartrate* (Zolpidem Tartrate*) 5 Mg Tablet, 5 MG PO QHS Y for INSOMNIA , #30 TAB 06/07/16 Calcium Acetate* (Calcium Acetate*) 667 Mg Capsule, 667 MG PO WITH MEALS, #30 CAP 03/12/16 Cinacalcet* (Sensipar*) 30 Mg Tab, 30 MG PO BID, TAB 03/12/16 Allergies Allergies: Coded Allergies: fluorescein (Verified Allergy, Unknown, 11/12/16) PMhx/Soc History of Surgery: Yes (Fem-Pop Atherectomy, Angioplasty, stenting 11/15/16, Pacemaker, AV fistula) Anesthesia Reaction: No Hx Neurological Disorder: Yes Hx Respiratory Disorders: No Hx Cardiac Disorders: Yes (HTN, PVD, HLD, DM) Hx Psychiatric Problems: No Hx Miscellaneous Medical Probl: Yes (ESRD on HD, L DM Foot Ulcer, Anemia of Chronic Disease, Blindness) Hx Alcohol Use: No Hx Substance Use: No Hx Tobacco Use: No Smoking Status: Former smoker FmHx Family History: No diabetes Physical Exam Vitals Vital Signs Date Time Temp Pulse Resp B/P Pulse Ox O2 Delivery O2 Flow Rate FiO2 03/24/17 13:30 97.9 60 144/67 94 Nasal Cannula 3.0 03/24/17 11:44 Nasal Cannula 2 03/24/17 11:44 98.1 73 18 156/78 97 Nasal Cannula 2.0 03/24/17 11:44 Nasal Cannula 2.0 03/24/17 11:16 98.1 76 18 146/71 88 Physical Exam Const: No apparent distress, well-developed, well-nourished Head: Normocephalic, Atraumatic Eyes: Normal Conjunctiva. Extraocular movements intact. Pupils equal, round and reactive to light ENT: Normal External Ears, Nose and Mouth. Neck: Full range of motion. No meningismus. Resp: Clear to auscultation bilaterally, No wheezes, rales or rhonchi Cardio: Regular rate and rhythm. No murmurs, rubs or gallops Abd: Soft, non tender, non distended. Normal bowel sounds Skin: No petechiae or rashes Back: No midline tenderness. No CVA tenderness Ext: No cyanosis, no edema. Left Foot Foot Ulcer. Neur: Awake and alert, oriented 4. Cranial nerves intact. No facial droop. Normal strength, sensation and coordination. Psych: Normal Mood and Affect Result Diagram: 03/24/17 1140 03/24/17 1140 Results 24 hrs Laboratory Tests Test 03/24/17 11:40 White Blood Count 11.010^3/ul Red Blood Count 3.7710^6/ul Hemoglobin 10.0g/dl Hematocrit 31.7% Mean Corpuscular Volume 84.1fl Mean Corpuscular Hemoglobin 26.5pg Mean Corpuscular Hemoglobin Concent 31.5g/dl Red Cell Distribution Width 20.5% Platelet Count 87852^3/UL Mean Platelet Volume 8.9fl Neutrophils % 85.7% Lymphocytes % 5.3% Monocytes % 7.0% Eosinophils % 1.1% Basophils % 0.4% Nucleated Red Blood Cells % 0.0/100WBC Neutrophils # 9.510^3/ul Lymphocytes # 0.610^3/ul Monocytes # 0.810^3/ul Eosinophils # 0.110^3/ul Basophils # 0.010^3/ul Nucleated Red Blood Cells # 0.010^3/ul Prothrombin Time 16.4Sec Prothrombin Time Ratio 1.3 INR International Normalized Ratio 1.31 Sodium Level 135mmol/L Potassium Level 5.6mmol/L Chloride Level 91mmol/L Carbon Dioxide Level 31mmol/L Anion Gap 19 Blood Urea Nitrogen 80mg/dl Creatinine 8.50mg/dl Glucose Level 109mg/dl Calcium Level 9.1mg/dl Troponin I 0.446ng/ml B-Type Natriuretic Peptide > 539480YQ/ML Current Medications Medications (Trade) Dose Ordered Sig/Loy Route PRN Reason Start Time Stop Time Status Last Admin Dose Admin Aspirin (Aspirin) 324 mg ONCE ONCE PO 03/24/17 13:30 03/24/17 13:31 DC 03/24/17 13:22 Fentanyl (Sublimaze) 50 mcg ONCE ONCE IV 03/24/17 14:00 03/24/17 14:01 DC Ondansetron HCl (Zofran Inj) 4 mg ER BRIDGE PRN IV NAUSEA AND/OR VOMITING 03/24/17 14:30 03/25/17 14:29 Acetaminophen (Tylenol Tab) 650 mg ER BRIDGE PRN PO MILD PAIN/FEVER 03/24/17 14:30 03/25/17 14:29 Procedures/MDM MDM The patient's presentation warrants further investigation. The patient has multiple chronic conditions, and it is difficult to ascertain what is chronic versus acute. I am concerned about an exacerbation of the patient's chest pain in addition to his new onset hypoxia. The patient does have chronic kidney disease, so troponin and BNP are likely to be elevated in the setting. They may be compared to previous studies. The patient missed dialysis today, which is also concerning. He will need to be dialyzed in the hospital. I will obtain a chest x-ray to evaluate for cardiac and pulmonary etiologies of his symptoms. The patient's vital signs are reassuring at this time. The patient is on 2 L nasal cannula and oxygenating between 95 and 100%. He does become hypoxic to 87-88% on room air, however. LABS The patient's blood work was obtained and reviewed. The patient's CBC shows mild leukocytosis and left shift. The patient is afebrile and does not appear systemically ill. I do not suspect a systemic infection. The patient is mildly anemic today. It is a normocytic anemia. The patient has a known history of anemia of chronic disease, which this correlates with. The patient's platelet count is unremarkable. The patient's BMP shows a mild hyperkalemia. In reviewing the EKG, there are no significant peak T waves to be concerned with. The patient's calcium is within normal limits. The patient has significant renal impairment with a BUN of 80 and a creatinine of 8.5, which is actually around where he normally is. The patient does have an elevated troponin at 0.446. Upon review of the record, he has had elevated troponins in the past, but most recently it was 0.1, so this is certainly an increase. The patient's EKG does not show findings of a STEMI or NSTEMI. However, this will need to be monitored. The patient's BNP is also elevated at 175,000. Patient does have rales on exam. I do have suspicion of heart failure in this patient. The patient is also volume overloaded as he is due for dialysis. EKG EKG read by me: Rate/Rhythm: Electronically ventricularly paced rhythm at 76 bpm Intervals: Normal [place]: Right shifted Impression: No evidence of acute ischemia or arrhythmia IMAGING CXR FINDINGS: Previous noted hemodialysis catheter is no longer visualized. The aorta is tortuous and atherosclerotic. The cardiomediastinal silhouette is otherwise enlarged. Diffuse pulmonary vascular congestion is seen with underlying pulmonary edema. Bilateral pleural effusions are seen. The soft tissues and osseous structures demonstrate benign age related senescent changes. IMPRESSION: Radiographic findings consistent with congestive heart failure as described above. The possibility of underlying infiltrate from pneumonia cannot be completely excluded. Continued follow-up is suggested. Electronically viewed and signed by Physician Kwesi on 03/24/2017 12 :24 TREATMENT/DISPOSITION The patient was given aspirin in the emergency department. I will also give the patient a treatment with albuterol which may both help his aeration as well as his elevated potassium. I have greater suspicion for heart failure than I do pneumonia at this time. I do not intend to treat with antibiotics, but this will need to be closely monitored in the hospital. The patient's high school professional, Dr. Newby, evaluated the patient in the emergency department. He felt that it was appropriate that the patient be admitted for dialysis. He will also require admission for serial troponins, EKG and evaluation of his cardiac status. It is difficult to ascertain at this time if the patient is going through an NSTEMI. The patient's symptoms today are likely exacerbations of his chronic illnesses more than an acute coronary syndrome process. Cardiology will likely need to be consulted in the hospital as well for evaluation of this. At this time, I feel that the patient requires admission for further evaluation and management. The patient will be admitted to Dr. French in accordance with the patient's insurance. The patient was accepted by Dr. French at 2 PM on March 24, 2017.. The patient's blood pressure was elevated at greater than 120/80 while in the emergency department. This may be further evaluated in the hospital as well. Disclaimer: Inadvertent spelling and grammatical errors are likely due to EHR/ dictation software use and do not reflect on the overall quality of patient care. Note that the electronic time recorded on this note does not necessarily reflect the actual time of the patient encounter. Departure Diagnosis: Primary Impression: Shortness of breath Additional Impressions: CKD (chronic kidney disease) Chronic kidney disease stage: on chronic dialysis Qualified Code: N18.6 - Stage 5 chronic kidney disease on chronic dialysis Chest pain Chest pain type: unspecified Qualified Code: R07.9 - Chest pain, unspecified type Elevated troponin Congestive heart failure Congestive heart failure type: unspecified congestive heart failure type Congestive heart failure chronicity: acute on chronic Qualified Code: I50.9 - Acute on chronic congestive heart failure, unspecified congestive heart failure type Ischemic necrosis of toe Condition: JUAN JOSÉ [place] MD Mar 24, 2017 12:27
[2017-03-24 12:29] LABS: ANION GAP 19 (8-16); BLOOD UREA NITROGEN 80 mg/dl (7-20); CALCIUM 9.1 mg/dl (8.4-10.2); CARBON DIOXIDE 31 mmol/L (21-31); CHLORIDE 91 mmol/L (97-110); GLUCOSE 109 mg/dl (70-220); POTASSIUM 5.6 mmol/L (3.5-5.1); SODIUM 135 mmol/L (135-144)
[2017-03-24 12:49] LABS: TROPONIN-I 0.446 ng/ml (0.00-0.12)
[2017-03-24] MEDS ORDERED: ASPIRIN 81 MG TAB PO ONE (13:30)
[2017-03-24 13:31] LABS: B-TYPE NATRIURETIC PEPTIDE > 175000 PG/ML (0-125)
[2017-03-24] MEDS ORDERED: FENTAnyl 50 MCG/ML VIAL IV ONE (14:00)
[2017-03-24] MEDS ORDERED: ALBUTEROL 0.083% (NEB) 2.5 MG/3 ML AMP HHN STA (14:30)
[2017-03-24] MEDS ORDERED: ONDANSETRON 4 MG INJ IV PRN ×2 (14:30→20:00)
[2017-03-24] MEDS ORDERED: ACETAMINOPHEN 325 MG TAB PO PRN ×2 (14:30→20:00)
[2017-03-24 17:10] VITALS: TEMP 98.5
[2017-03-24 18:00] VITALS: BP 113/53; PULSE 81; RESP 18; Ht 177.8 cm; Wt 65.0 kg
[2017-03-24 20:20] VITALS: BP 118/56; RESP 18
[2017-03-24 20:25] VITALS: PULSE 79
--- NOTE | 2017-03-24 20:45 | HP ---
Date/Time of Note Date/Time of Note DATE: 03/24/17 TIME: 20:22 Assessment/Plan Lines/Catheters IV Catheter Type (from Nrs): Peripheral IV Assessment/Plan Assessment/Plan -Chest pain - admit to tele floor - cardiology consult- Dr Quick informed by Dr French - Elevated troponin - per cardiology -Shortness of breath- none at present - Hyperkalemia- per nephrology, HD am -CKD (chronic kidney disease) Stage 5 chronic kidney disease on chronic dialysis - Nephrology consult- Dr Newby notified- hd AM - Acute on chronic congestive heart failure, unspecified congestive heart failure type - Ischemic necrosis of toe- Podiatary consult appreciated - podiatry consult - dr Erin connor notified - JACOB Rivera. staff HPI/ROS Admit Date/Time Admit Date/Time Mar 24, 2017 at 14:04 Hx of Present Illness This is a 61-year-old man with a history of hypertension, hyperlipidemia, diabetes, coronary artery disease, peripheral vascular disease status post previous stenting and currently on Plavix, end-stage renal disease on dialysis Friday//Friday, anemia of chronic disease, who is presenting with chest pain, dyspnea and hypoxia this morning. The patient stays at a [facility] facility and his oxygen levels were found to be low. An ambulance was called for the patient to be evaluated for this. Upon consulting sales manager arrival, they found his O2 sat to be 88% on room air. He was placed on 2 L, and this increased to 100%. He last got dialysis 2 days ago. Patient reports feeling generally unwell. This is chronic for him. He has horrible peripheral vascular disease with chronic chest pains and leg pains, especially in his left lower extremity where he has dry gangrene and necrosis of the left foot. This is been worked up in the past and does not appear infected today. The patient's pain is not worsened today, but he does note that it is exquisite. The patient denies fever or chills. The patient has had no headache or vision changes. The patient does not endorse neck or back pain. The patient denies lightheadedness or dizziness. The patient denies nausea or vomiting. The patient endorses chronic abdominal discomfort but no changes to bowel movements or urination. The patient has had no new focal deficits. He has decreased sensation to the left foot related to his gangrenous necrosis. The patient is blind. ROS All systems reviewed and are negative except as per history of present illness. Allergies Allergies: Coded Allergies: fluorescein (Verified Allergy, Unknown, 11/12/16) ROS Eyes: other (Blindness) Respiratory: no complaints Cardiovascular: no complaints Gastrointestinal: no complaints Genitourinary: no complaints Musculoskeletal: no complaints PMH/Family/Social Past Medical History PMhx/Soc History of Surgery: Yes (Fem-Pop Atherectomy, Angioplasty, stenting 11/15/16, Pacemaker, AV fistula) Anesthesia Reaction: No Hx Neurological Disorder: Yes Hx Respiratory Disorders: No Hx Cardiac Disorders: Yes (HTN, PVD, HLD, DM) Hx Psychiatric Problems: No Hx Miscellaneous Medical Probl: Yes (ESRD on HD, L DM Foot Ulcer, Anemia of Chronic Disease, Blindness) Hx Alcohol Use: No Hx Substance Use: No Hx Tobacco Use: No Smoking Status: Former smoker FmHx Family History: No diabetes Past Surgical History Past Surgical Hx: appendectomy, other Social History Smoking Status: Former smoker Exam/Review of Systems Vital Signs Vitals Vital Signs Date Time Temp Pulse Resp B/P Pulse Ox O2 Delivery O2 Flow Rate FiO2 03/24/17 18:00 98.1 81 18 113/53 94 Nasal Cannula 3.0 Exam Constitutional: alert Respiratory: diminished breath sounds, normal air movement Cardiovascular: nl pulses Gastrointestinal: non-tender, soft Musculoskeletal: other (Left Foot Foot Ulcer.) Neurological: nl speech Labs Result Diagram: 03/24/17 1140 03/24/17 1140 Medications Medications Current Medications Diagnostic Test (Pha) (Accu-Chek) XX ; Start 03/25/17 at 02:00 Amlodipine Besylate (Norvasc) 5 mg BID PO ; Start 03/24/17 at 21:00 Atorvastatin Calcium (Lipitor) 40 mg HS PO ; Start 03/24/17 at 21:00 Cinacalcet (Sensipar) 30 mg BID PO ; Start 03/24/17 at 21:00 Clopidogrel Bisulfate (plaVIX) 75 mg DAILY PO ; Start 03/25/17 at 09:00 Losartan Potassium (Cozaar) 25 mg DAILY PO ; Start 03/25/17 at 09:00 Metoprolol Succinate (Toprol Xl) 25 mg DAILY PO ; Start 03/25/17 at 09:00 Zolpidem Tartrate (Ambien) 5 mg QHS PRN PO INSOMNIA; Start 03/24/17 at 20:00 Ondansetron HCl (Zofran Inj) 4 mg Q6H PRN IV NAUSEA AND/OR VOMITING; Start at 20:00 Acetaminophen (Tylenol Tab) 650 mg Q6H PRN PO PAIN AND OR ELEVATED TEMP; Start 03/24/17 at 20:00 IHASN SULLIVAN Mar 24, 2017 20:39
[2017-03-24 20:48] LABS: CHOL/HDL RATIO 1.5 RATIO
[2017-03-24] MEDS: ATORVASTATIN 40 MG TAB PO SCH (20:53)
[2017-03-24] MEDS: CINACALCET 30 MG TAB PO SCH (20:53)
[2017-03-24] MEDS: AMLODIPINE 5 MG TAB PO SCH (20:54)
[2017-03-24] MEDS: INSULIN ASPART [NOVOLOG] 3 ML PEN SC SCH (20:54)
[2017-03-24] MEDS: DOCUSATE SODIUM 100 MG CAP PO SCH ×2 (20:56→22:04)
[2017-03-24] MEDS ORDERED: METOPROLOL 50 MG TAB PO SCH (21:00)
[2017-03-24] MEDS: AL HYDROX/MG HYDROX/SIMETH 30 ML CUP PO PRN (21:05)
--- NOTE | 2017-03-24 22:55 | CONS ---
DATE OF ADMISSION: 03/24/2017 DATE OF CONSULTATION: HISTORY OF PRESENT ILLNESS: The patient is a 61-year-old unfortunate, diabetic , blind, , disabled man who has been admitted many times. Please refer to the detailed history available in the chart. The patient has been followed closely at the dialysis center, where he goes 3 times a week. Please refer to the detailed information available in the chart. In summary, the patient has been maintained on multiple medications includin. Atorvastatin. 2. Meropenem. 3. Sensipar. 4. Plavix. 5. Losartan. 6. Metoprolol. 7. PhosLo. 8. Epogen for anemia. 9. Some other p.r.n. medications, such as Tyelenol. He has been reasonably stable despite the problem with his left foot gangrene, for which he has been recently discharged from the hospital after long antibiotic therapy. Since his discharge from here, he was placed in the nursing facility from where he has been transferred back with a chief complaint of chest pain. Please refer to the detailed ER records. Workup in the ER showed white count of 11,000, hematocrit 32%. Electrolytes: Potassium 5.6, BUN 80, creatinine 8.5. Attempt to dialyze the patient was unsuccessful today because of the lack of the placement of patient in a bed. The patient has previous history of chest pain and has had extensive cardiac workup, as if he uses this excuse to come into the emergency room. REVIEW OF SYSTEMS: Rest of the system review is negative for any head, ears, nose, throat problems. The patient is totally blind and dependent on the family and the caregivers. Patient has known history of hypertension, diabetic retinopathy and has had admissions for left foot gangrene in multiple hospitals. Rest of the systems at this time is negative for any head, ears, nose, throat problem. No fevers, chills, cough, hemoptysis. No acute abdominal pain, flank pain. No history of problem except for the ESRD. No acute gout, joint pain, seizures, syncope or other metabolic problem. PHYSICAL EXAMINATION: GENERAL: The patient to be somewhat depressed, anxious male who says that I do not want to go back to the shelter. VITAL SIGNS: In the emergency room, revealed blood pressure of 113/53, heart rate of 80, temperature 98.1, respirations not labored at 14. HEAD, EARS, NOSE, THROAT: Unremarkable. EYES: Patient is totally blind. Conjunctivae pale. Sclerae are anicteric. NOSE: Normal mucosa. THROAT: Tongue is pale. No pharyngeal congestion. NECK: Supple. No jugular venous distention. Trachea is midline. CHEST: Symmetrical. HEART: Regular rhythm, S1 unremarkable. ABDOMEN: Flat, soft, no masses. GENITALIA: Not examined. EXTREMITIES: Left foot gangrene, mostly at the solar aspect of the heel is noted. No pitting edema. Pulses diminished in the left foot as more than the right, and the left arm AV fistula is functioning. No neurological deficit except for the decreased tendon reflexes in both lower extremities. IMPRESSION: 1. History of diabetes, end-stage kidney disease on hemodialysis. 2. Peripheral vascular disease, gangrene left foot, chronic. 3. Episode of chest pain may be related to underlying anxiety with angina. 4. Blindness PLAN: Patient has potassium of 5.6. Dialysis orders have been written and I would hope that the patient's condition stabilizes. I will leave the rest of the management in the hands of Dr. French, whom I have notified. Please allow me to thank you once again. Fortunately, the gangrenous foot is stable and no plans for amputation are underway. Dictated By: SHU ÁLVAREZ/ZACK Conf#: [id number] DID#: [id number] CC: POLY FRENCH MD;*EndCC* MTDD
[2017-03-24 23:34] VITALS: BP 119/54; RESP 18
[2017-03-25] VITALS (18 sets, daily range): BP systolic 131–184; BP diastolic 64–99; PULSE 72–84; RESP 17–20
[2017-03-25] MEDS: ACCU-CHEK XX SCH (02:00)
[2017-03-25] MEDS: HYDROCODONE/APAP (5/325) TAB PO PRN ×4 (03:16→20:00)
[2017-03-25 08:06] LABS: BASOPHILS % 0.7 % (0.0-2.0); EOSINOPHILS % 0.5 % (0.0-7.0); HEMATOCRIT 26.1 % (42.0-52.0); HEMOGLOBIN 8.2 g/dl (14.0-18.0); LYMPHOCYTES # 0.6 10^3/ul (0.8-2.9); LYMPHOCYTES % 10.7 % (15.0-51.0); MEAN CORPUSCULAR HEMOGLOBIN 25.9 pg (29.0-33.0); MEAN CORPUSCULAR HGB CONC 31.4 g/dl (32.0-37.0); MEAN CORPUSCULAR VOLUME 82.3 fl (82.0-101.0); MEAN PLATELET VOLUME 8.6 fl (7.4-10.4); MONOCYTE # 0.2 10^3/ul (0.3-0.9); NEUTROPHILS % 84.8 % (39.0-77.0); PLATELET COUNT 235 10^3/UL (140-415); RED BLOOD COUNT 3.17 10^6/ul (4.70-6.10); RED CELL DISTRIBUTION WIDTH 20.1 % (11.5-14.5); WHITE BLOOD COUNT 5.9 10^3/ul (4.8-10.8)
[2017-03-25] MEDS ORDERED: PENDING SANTYL ORDER FOR WOUND CARE XX PRN (08:30)
[2017-03-25] MEDS: INSULIN ASPART [NOVOLOG] 3 ML PEN SC SCH ×4 (08:54→21:00)
[2017-03-25] MEDS ORDERED: METOPROLOL (XL) 25 MG TAB PO SCH (09:00)
--- NOTE | 2017-03-25 09:16 | CONS ---
Date/Time of Note Date/Time of Note DATE: 03/25/17 TIME: 09:09 Assessment/Plan Assessment/Plan Chief Complaint/Hosp Course The pt is well known to me from the past He has severe PAD, CAD, HTN, RF and came with elevated BNP and sob. The pt had been recommended to have a foot amputation, he refused. Problems: Additional Assessment/Plan he has gangrene on the left 3 toes, the ankle is warm the pt will need an amputation The trop is elevated, will need to keep him on heparin for 2 days the elevation is chronic, but since he has severe PAD as well, will need heparin. Consultation Date/Type/Reason Admit Date/Time Mar 24, 2017 at 14:04 Referring Provider: POLY THRASHER MD Hx of Present Illness This is a well known pt from the past who has Severe PAD, HTN, RF on HD, and has an elevated Trop (which is chronic) had an angio, did not need a stent NO cp. Most likely demand ischemia from CHF Eyes: other (Blindness) Respiratory: no complaints Cardiovascular: no complaints Gastrointestinal: no complaints Genitourinary: no complaints Musculoskeletal: no complaints Past Medical History No chest pain Medical History: other (no ) Past Surgical History Past Surgical Hx: appendectomy, other Social History Smoking Status: Former smoker Exam/Review of Systems Vital Signs Vitals Vital Signs Date Time Temp Pulse Resp B/P Pulse Ox O2 Delivery O2 Flow Rate FiO2 03/25/17 08:21 98.2 71 20 151/80 96 03/24/17 20:00 Nasal Cannula 2.0 Intake and Output 03/24/17 03/24/17 03/25/17 15:00 23:00 07:00 Intake Total 400 ml Balance 400 ml Results Result Diagram: 03/25/17 0738 03/24/17 1140 Results 24 hrs Laboratory Tests Test 03/24/17 11:40 03/24/17 20:08 03/24/17 20:51 03/25/17 07:38 White Blood Count 11.0 #H 5.9 # Red Blood Count 3.77 L 3.17 L Hemoglobin 10.0 #L 8.2 L Hematocrit 31.7 L 26.1 L Mean Corpuscular Volume 84.1 82.3 Mean Corpuscular Hemoglobin 26.5 L 25.9 L Mean Corpuscular Hemoglobin Concent 31.5 L 31.4 L Red Cell Distribution Width 20.5 H 20.1 H Platelet Count 301 # 235 # Mean Platelet Volume 8.9 8.6 Neutrophils % 85.7 H 84.8 H Lymphocytes % 5.3 L 10.7 L Monocytes % 7.0 3.0 Eosinophils % 1.1 0.5 Basophils % 0.4 0.7 Nucleated Red Blood Cells % 0.0 0.0 Neutrophils # 9.5 H 5.0 Lymphocytes # 0.6 L 0.6 L Monocytes # 0.8 0.2 L Eosinophils # 0.1 0.0 Basophils # 0.0 0.0 Nucleated Red Blood Cells # 0.0 0.0 Prothrombin Time 16.4 H Prothrombin Time Ratio 1.3 INR International Normalized Ratio 1.31 Sodium Level 135 Potassium Level 5.6 H Chloride Level 91 L Carbon Dioxide Level 31 Anion Gap 19 H Blood Urea Nitrogen 80 H Creatinine 8.50 H Glucose Level 109 Calcium Level 9.1 Troponin I 0.446 *H B-Type Natriuretic Peptide > 542688 H > 192540 H Triglycerides Level 38 Cholesterol Level 160 LDL Cholesterol, Calculated 47 HDL Cholesterol 105 H Cholesterol/HDL Ratio 1.5 Free Thyroxine 1.60 Bedside Glucose 147 Hemoglobin A1c 5.1 Test 03/25/17 08:54 Bedside Glucose 105 Medications Medications Current Medications Diagnostic Test (Pha) (Accu-Chek) 1 ea 02 XX ; Start 03/25/17 at 02:00 Amlodipine Besylate (Norvasc) 5 mg BID PO Last administered on 03/24/17 20:54 ; Admin Dose 5 MG; Start 03/24/17 at 21:00 Atorvastatin Calcium (Lipitor) 40 mg HS PO Last administered on 03/24/17 20: 53; Admin Dose 40 MG; Start 03/24/17 at 21:00 Cinacalcet (Sensipar) 30 mg BID PO Last administered on 03/24/17 20:53; Admin Dose 30 MG; Start 03/24/17 at 21:00 Clopidogrel Bisulfate (plaVIX) 75 mg DAILY PO ; Start 03/25/17 at 09:00 Losartan Potassium (Cozaar) 25 mg DAILY PO ; Start 03/25/17 at 09:00 Zolpidem Tartrate (Ambien) 5 mg QHS PRN PO INSOMNIA; Start 03/24/17 at 20:00 Ondansetron HCl (Zofran Inj) 4 mg Q6H PRN IV NAUSEA AND/OR VOMITING; Start at 20:00 Acetaminophen (Tylenol Tab) 650 mg Q6H PRN PO PAIN AND OR ELEVATED TEMP; Start 03/24/17 at 20:00 Docusate Sodium (Colace) 100 mg DAILY PO Last administered on 03/24/17 22:04 ; Admin Dose 100 MG; Start 03/24/17 at 20:56 Al Hydrox/Mg Hydrox/Simethicone (Mag-Al Plus) 30 ml Q6H PRN PO GASTROINTESTINAL UPSET Last administered on 03/24/17 21:05; Admin Dose 30 ML; Start 03/24/17 at 21:00 Acetaminophen/ Hydrocodone Bitart ([place] (5/325)) 1 tab Q4H PRN PO PAIN Last administered on 03/25/17 03:16; Admin Dose 1 TAB; Start 03/25/17 at 03:06 Influenza Virus Vaccine (Fluzone) 0.5 ml ONCE ONCE IM* ; Start 03/26/17 at 09: 00; Stop 03/26/17 at 09:01 Miscellaneous Information (Pending Santyl Order For Wound Care) This patient mckeon... PRN PRN XX WOUND CARE; Start 03/25/17 at 08:30 ARVIND SHIRLEY MD Mar 25, 2017 09:16
[2017-03-25] MEDS ORDERED: HEPARIN 25000 UNITS/250 ML 250 ML IV SCH (10:03)
[2017-03-25] MEDS: CLOPIDOGREL 75 MG TAB PO SCH (10:56)
[2017-03-25] MEDS: CALCIUM ACETATE 667 MG CAP PO SCH ×3 (10:57→17:00)
[2017-03-25] MEDS: CINACALCET 30 MG TAB PO SCH ×2 (10:57→21:04)
[2017-03-25] MEDS: SEVELAMER 800 MG TAB PO SCH ×3 (10:58→17:00)
[2017-03-25] MEDS: LOSARTAN 25 MG TAB PO SCH (11:05)
[2017-03-25] MEDS: AMLODIPINE 5 MG TAB PO SCH ×2 (11:05→21:04)
[2017-03-25 12:54] LABS: ABNORMAL IP MESSAGE 1; BASOPHILS % 0.5 % (0.0-2.0); EOSINOPHILS # 0.1 10^3/ul (0.0-0.5); EOSINOPHILS % 1.4 % (0.0-7.0); HEMATOCRIT 27.8 % (42.0-52.0); HEMOGLOBIN 8.7 g/dl (14.0-18.0); LYMPHOCYTES # 0.5 10^3/ul (0.8-2.9); LYMPHOCYTES % 7.7 % (15.0-51.0); MEAN CORPUSCULAR HGB CONC 31.3 g/dl (32.0-37.0); MEAN PLATELET VOLUME 8.4 fl (7.4-10.4); MONOCYTE # 0.5 10^3/ul (0.3-0.9); MONOCYTES % 7.1 % (0.0-11.0); NEUTROPHIL # 5.3 10^3/ul (1.6-7.5); PLATELET COUNT 220 10^3/UL (140-415); POSITIVE DIFF @See below; RED BLOOD COUNT 3.35 10^6/ul (4.70-6.10); RED CELL DISTRIBUTION WIDTH 20.5 % (11.5-14.5); WHITE BLOOD COUNT 6.3 10^3/ul (4.8-10.8)
[2017-03-25 13:15] LABS: ALBUMIN 3.6 g/dl (3.3-4.9); ALBUMIN/GLOBULIN RATIO 1.02; BILIRUBIN,INDIRECT 0.5 mg/dl (0-1.1); BILIRUBIN,TOTAL 0.5 mg/dl (0.2-1.3); CALCIUM 9.3 mg/dl (8.4-10.2); CREATININE 5.23 mg/dl (0.61-1.24); TOTAL PROTEIN 7.1 g/dl (6.1-8.1)
[2017-03-25 13:20] LABS: INR 1.33; PROTIME 16.6 Sec (12.2-14.2); PT RATIO 1.3
[2017-03-25 13:21] LABS: PARTIAL THROMBOPLASTIN TIME 45.1 Sec (25.0-35.0)
--- NOTE | 2017-03-25 13:54 | CONS ---
Date/Time of Note Date/Time of Note DATE: 03/25/17 TIME: 13:51 Assessment/Plan Assessment/Plan Additional Assessment/Plan 61 yo Male with 1) Chest pain, CAD, R/o ACS possible NSTEMI 2) Uncontrolled HTN 3) ESRD on HD 4) Dm With Renal Complication, ESRD 5) Anemia, Chronic, CKD 6) MBD, CKD S/p HD no complication tolerated UF Cont Anti -HTN Rx Amlodipine given Will cont to follow closely next HD will be ordered for tomorrow to resume MWF schedule. Consultation Date/Type/Reason Admit Date/Time Mar 24, 2017 at 14:04 Initial Consult Date Type of Consultation: Renal Referring Provider: POLY THRASHER MD 24 HR Interval Summary Free Text/Dictation S/p HD today, No complications. No CP or SOB Constitutional: No requiring O2 Exam/Review of Systems Vital Signs Vitals Vital Signs Date Time Temp Pulse Resp B/P Pulse Ox O2 Delivery O2 Flow Rate FiO2 03/25/17 12:02 75 03/25/17 11:13 98.1 20 184/99 96 03/25/17 11:00 Nasal Cannula 03/24/17 20:00 2.0 Intake and Output 03/24/17 03/24/17 03/25/17 14:59 22:59 06:59 Intake Total 400 ml Balance 400 ml Exam Constitutional: alert, oriented, No distress ENMT: mucosa pink and moist Respiratory: clear to auscultation, No diminished breath sounds, No labored breathing Cardiovascular: regular rate and rhythm, No edema Gastrointestinal: non-tender, soft Neurological: nl mental status, No confused, No lethargic Results Result Diagram: 03/25/17 1221 03/25/17 1221 Results 24 hrs Laboratory Tests Test 03/24/17 20:08 03/24/17 20:51 03/25/17 07:38 03/25/17 08:54 B-Type Natriuretic Peptide > 739208 H Triglycerides Level 38 Cholesterol Level 160 LDL Cholesterol, Calculated 47 HDL Cholesterol 105 H Cholesterol/HDL Ratio 1.5 Free Thyroxine 1.60 Bedside Glucose 147 105 White Blood Count 5.9 # Red Blood Count 3.17 L Hemoglobin 8.2 L Hematocrit 26.1 L Mean Corpuscular Volume 82.3 Mean Corpuscular Hemoglobin 25.9 L Mean Corpuscular Hemoglobin Concent 31.4 L Red Cell Distribution Width 20.1 H Platelet Count 235 # Mean Platelet Volume 8.6 Neutrophils % 84.8 H Lymphocytes % 10.7 L Monocytes % 3.0 Eosinophils % 0.5 Basophils % 0.7 Nucleated Red Blood Cells % 0.0 Neutrophils # 5.0 Lymphocytes # 0.6 L Monocytes # 0.2 L Eosinophils # 0.0 Basophils # 0.0 Nucleated Red Blood Cells # 0.0 Hemoglobin A1c 5.1 Test 03/25/17 12:21 03/25/17 12:31 White Blood Count 6.3 Red Blood Count 3.35 L Hemoglobin 8.7 L Hematocrit 27.8 L Mean Corpuscular Volume 83.0 Mean Corpuscular Hemoglobin 26.0 L Mean Corpuscular Hemoglobin Concent 31.3 L Red Cell Distribution Width 20.5 H Platelet Count 220 Mean Platelet Volume 8.4 Neutrophils % 83.0 H Lymphocytes % 7.7 L Monocytes % 7.1 Eosinophils % 1.4 Basophils % 0.5 Nucleated Red Blood Cells % 0.0 Neutrophils # 5.3 Lymphocytes # 0.5 L Monocytes # 0.5 Eosinophils # 0.1 Basophils # 0.0 Nucleated Red Blood Cells # 0.0 Prothrombin Time 16.6 H Prothrombin Time Ratio 1.3 INR International Normalized Ratio 1.33 Activated Partial Thromboplast Time 45.1 H Sodium Level 138 Potassium Level 4.0 Chloride Level 94 L Carbon Dioxide Level 32 H Anion Gap 16 Blood Urea Nitrogen 47 #H Creatinine 5.23 #H Glucose Level 93 Calcium Level 9.3 Total Bilirubin 0.5 Direct Bilirubin 0.00 Indirect Bilirubin 0.5 Aspartate Amino Transf (AST/SGOT) 23 Alanine Aminotransferase (ALT/SGPT) 33 Alkaline Phosphatase 178 H Total Protein 7.1 Albumin 3.6 Globulin 3.50 H Albumin/Globulin Ratio 1.02 Prealbumin 19.2 Bedside Glucose 102 Medications Medications Current Medications Diagnostic Test (Pha) (Accu-Chek) 1 ea 02 XX ; Start 03/25/17 at 02:00 Amlodipine Besylate (Norvasc) 5 mg BID PO Last administered on 03/25/17 11:05 ; Admin Dose 5 MG; Start 03/24/17 at 21:00 Atorvastatin Calcium (Lipitor) 40 mg HS PO Last administered on 03/24/17 20: 53; Admin Dose 40 MG; Start 03/24/17 at 21:00 Cinacalcet (Sensipar) 30 mg BID PO Last administered on 03/25/17 10:57; Admin Dose 30 MG; Start 03/24/17 at 21:00 Clopidogrel Bisulfate (plaVIX) 75 mg DAILY PO Last administered on 03/25/17 10:56; Admin Dose 75 MG; Start 03/25/17 at 09:00 Losartan Potassium (Cozaar) 25 mg DAILY PO Last administered on 03/25/17 11: 05; Admin Dose 25 MG; Start 03/25/17 at 09:00 Zolpidem Tartrate (Ambien) 5 mg QHS PRN PO INSOMNIA; Start 03/24/17 at 20:00 Ondansetron HCl (Zofran Inj) 4 mg Q6H PRN IV NAUSEA AND/OR VOMITING; Start at 20:00 Acetaminophen (Tylenol Tab) 650 mg Q6H PRN PO PAIN AND OR ELEVATED TEMP; Start 03/24/17 at 20:00 Docusate Sodium (Colace) 100 mg DAILY PO Last administered on 03/24/17 22:04 ; Admin Dose 100 MG; Start 03/24/17 at 20:56 Al Hydrox/Mg Hydrox/Simethicone (Mag-Al Plus) 30 ml Q6H PRN PO GASTROINTESTINAL UPSET Last administered on 03/24/17 21:05; Admin Dose 30 ML; Start 03/24/17 at 21:00 Acetaminophen/ Hydrocodone Bitart ([place] (5/325)) 1 tab Q4H PRN PO PAIN Last administered on 03/25/17 13:25; Admin Dose 1 TAB; Start 03/25/17 at 03:06 Influenza Virus Vaccine (Fluzone) 0.5 ml ONCE ONCE IM* ; Start 03/26/17 at 09: 00; Stop 03/26/17 at 09:01 Miscellaneous Information [facility] This patient mckeon... PRN PRN XX WOUND CARE; Start 03/25/17 at 08:30 Morphine Sulfate (morphine) 2 mg Q3 PRN IV PAIN LEVEL 4-7; Start 03/25/17 at 12:00 Miscellaneous Information 1 ea NOTE XX ; Start 03/25/17 at 14:00 Glucose (Glutose) 15 gm Q15M PRN PO DECREASED GLUCOSE; Start 03/25/17 at 14:00 Glucose (Glutose) 22.5 gm Q15M PRN PO DECREASED GLUCOSE; Start 03/25/17 at 14: 00 Dextrose (D50w Syringe) 25 ml Q15M PRN IV DECREASED GLUCOSE; Start 03/25/17 at 14:00 Dextrose (D50w Syringe) 50 ml Q15M PRN IV DECREASED GLUCOSE; Start 03/25/17 at 14:00 Glucagon (Glucagen) 1 mg Q15M PRN IM DECREASED GLUCOSE; Start 03/25/17 at 14: 00 Glucose (Glutose) 15 gm Q15M PRN BUCCAL DECREASED GLUCOSE; Start 03/25/17 at 14:00 PIPER FELIX MD Mar 25, 2017 13:54
[2017-03-25] MEDS ORDERED: GLUCAGON 1 MG INJ IM PRN (14:00)
[2017-03-25] MEDS ORDERED: DEXTROSE 50% 50 ML SYRINGE IV PRN ×2 (14:00)
[2017-03-25] MEDS ORDERED: GLUCOSE GEL 15 GRAM TUBE BUCCAL PRN (14:00)
[2017-03-25] MEDS ORDERED: GLUCOSE GEL 15 GRAM TUBE PO PRN ×2 (14:00)
[2017-03-25] MEDS: HEPARIN 25000 UNITS/250 ML 250 ML IV SCH (14:44)
--- NOTE | 2017-03-25 16:29 | CONS ---
Date/Time of Note Date/Time of Note DATE: 03/25/17 TIME: 16:29 Assessment/Plan Assessment/Plan Problems: (1) Peripheral vascular disease (2) Toe gangrene (3) Diabetes, polyneuropathy Status: Chronic (4) Blindness Status: Chronic Additional Assessment/Plan Recommendation: I do not recommend any surgical management at this time. Betadine paint to left foot daily. Bed cradle to bed. Will follow. Consultation Date/Type/Reason Admit Date/Time Mar 24, 2017 at 14:04 Date of Consultation: Mar 25, 2017 Type of Consultation: Foot and ankle surgery Reason for Consultation Right foot evaluation and care Hx of Present Illness Thank you very much for your kind consultation. As you very well know this is a 61-year-old male patient who is known to our foot and ankle surgery service. Patient has multiple medical problems including coronary artery disease, diabetes mellitus, bilateral lower extremity atherosclerosis with gangrene, legally blind, hypertension and left diabetic foot infections. Patient was apparently admitted back in February 2017 and during that time he had presented with left lower extremity gangrene involving his heel, plantar aspect of his foot and his fifth toe. Our vascular colleagues Constitutional: no complaints Past Medical History As per history of present illness. Medical History: other (no ) Past Surgical History As per history of present illness. Past Surgical Hx: appendectomy, other Social History As per history of present illness. Smoking Status: Former smoker Exam/Review of Systems Vital Signs Vitals Vital Signs Date Time Temp Pulse Resp B/P Pulse Ox O2 Delivery O2 Flow Rate FiO2 03/25/17 16:06 75 03/25/17 15:20 98.7 20 158/73 95 03/25/17 11:00 Nasal Cannula 03/24/17 20:00 2.0 Intake and Output 03/24/17 03/24/17 03/25/17 14:59 22:59 06:59 Intake Total 400 ml Balance 400 ml Exam Patient is laying supine in bed in no acute distress. Right foot: nonpalpable pedal pulses. Motor, sensory intact. Cap refill 3 to 4 seconds. No ulcers. There is gangrene of his right heel, which is small in area, about 1 cm. Left foot: nonpalpable pedal pulses. Motor and sensory intact. Cap refill 4 seconds. There is also an area of dependent rubor on his forefoot and gangrene of his fourth and fifth toes that is dry. He also has tissue loss and gangrenous changes on his plantar aspect of the foot and on the heel. Protective sensation is decreased to sharp, dull, vibratory and temperature stimuli. Labs reviewed. Results Result Diagram: 03/25/17 1221 03/25/17 1221 Results 24 hrs Laboratory Tests Test 03/24/17 20:08 03/24/17 20:51 03/25/17 07:38 03/25/17 08:54 B-Type Natriuretic Peptide > 866648 H Triglycerides Level 38 Cholesterol Level 160 LDL Cholesterol, Calculated 47 HDL Cholesterol 105 H Cholesterol/HDL Ratio 1.5 Free Thyroxine 1.60 Bedside Glucose 147 105 White Blood Count 5.9 # Red Blood Count 3.17 L Hemoglobin 8.2 L Hematocrit 26.1 L Mean Corpuscular Volume 82.3 Mean Corpuscular Hemoglobin 25.9 L Mean Corpuscular Hemoglobin Concent 31.4 L Red Cell Distribution Width 20.1 H Platelet Count 235 # Mean Platelet Volume 8.6 Neutrophils % 84.8 H Lymphocytes % 10.7 L Monocytes % 3.0 Eosinophils % 0.5 Basophils % 0.7 Nucleated Red Blood Cells % 0.0 Neutrophils # 5.0 Lymphocytes # 0.6 L Monocytes # 0.2 L Eosinophils # 0.0 Basophils # 0.0 Nucleated Red Blood Cells # 0.0 Hemoglobin A1c 5.1 Test 03/25/17 12:21 03/25/17 12:31 White Blood Count 6.3 Red Blood Count 3.35 L Hemoglobin 8.7 L Hematocrit 27.8 L Mean Corpuscular Volume 83.0 Mean Corpuscular Hemoglobin 26.0 L Mean Corpuscular Hemoglobin Concent 31.3 L Red Cell Distribution Width 20.5 H Platelet Count 220 Mean Platelet Volume 8.4 Neutrophils % 83.0 H Lymphocytes % 7.7 L Monocytes % 7.1 Eosinophils % 1.4 Basophils % 0.5 Nucleated Red Blood Cells % 0.0 Neutrophils # 5.3 Lymphocytes # 0.5 L Monocytes # 0.5 Eosinophils # 0.1 Basophils # 0.0 Nucleated Red Blood Cells # 0.0 Prothrombin Time 16.6 H Prothrombin Time Ratio 1.3 INR International Normalized Ratio 1.33 Activated Partial Thromboplast Time 45.1 H Sodium Level 138 Potassium Level 4.0 Chloride Level 94 L Carbon Dioxide Level 32 H Anion Gap 16 Blood Urea Nitrogen 47 #H Creatinine 5.23 #H Glucose Level 93 Calcium Level 9.3 Total Bilirubin 0.5 Direct Bilirubin 0.00 Indirect Bilirubin 0.5 Aspartate Amino Transf (AST/SGOT) 23 Alanine Aminotransferase (ALT/SGPT) 33 Alkaline Phosphatase 178 H Total Protein 7.1 Albumin 3.6 Globulin 3.50 H Albumin/Globulin Ratio 1.02 Prealbumin 19.2 Bedside Glucose 102 Medications Medications Current Medications Diagnostic Test (Pha) (Accu-Chek) 1 ea 02 XX ; Start 03/25/17 at 02:00 Amlodipine Besylate (Norvasc) 5 mg BID PO Last administered on 03/25/17 11:05 ; Admin Dose 5 MG; Start 03/24/17 at 21:00 Atorvastatin Calcium (Lipitor) 40 mg HS PO Last administered on 03/24/17 20: 53; Admin Dose 40 MG; Start 03/24/17 at 21:00 Cinacalcet (Sensipar) 30 mg BID PO Last administered on 03/25/17 10:57; Admin Dose 30 MG; Start 03/24/17 at 21:00 Clopidogrel Bisulfate (plaVIX) 75 mg DAILY PO Last administered on 03/25/17 10:56; Admin Dose 75 MG; Start 03/25/17 at 09:00 Losartan Potassium (Cozaar) 25 mg DAILY PO Last administered on 03/25/17 11: 05; Admin Dose 25 MG; Start 03/25/17 at 09:00 Zolpidem Tartrate (Ambien) 5 mg QHS PRN PO INSOMNIA; Start 03/24/17 at 20:00 Ondansetron HCl (Zofran Inj) 4 mg Q6H PRN IV NAUSEA AND/OR VOMITING; Start at 20:00 Acetaminophen (Tylenol Tab) 650 mg Q6H PRN PO PAIN AND OR ELEVATED TEMP; Start 03/24/17 at 20:00 Docusate Sodium (Colace) 100 mg DAILY PO Last administered on 03/24/17 22:04 ; Admin Dose 100 MG; Start 03/24/17 at 20:56 Al Hydrox/Mg Hydrox/Simethicone (Mag-Al Plus) 30 ml Q6H PRN PO GASTROINTESTINAL UPSET Last administered on 03/24/17 21:05; Admin Dose 30 ML; Start 03/24/17 at 21:00 Acetaminophen/ Hydrocodone Bitart ([place] (5/325)) 1 tab Q4H PRN PO PAIN Last administered on 03/25/17t 13:25; Admin Dose 1 TAB; Start 03/25/17 at 03:06 Influenza Virus Vaccine (Fluzone) 0.5 ml ONCE ONCE IM* ; Start 03/26/17 at 09: 00; Stop 03/26/17 at 09:01 Miscellaneous Information (Pending [facility] Order For Wound Care) This patient mckeon... PRN PRN XX WOUND CARE; Start 03/25/17 at 08:30 Morphine Sulfate (morphine) 2 mg Q3 PRN IV PAIN LEVEL 4-7; Start 03/25/17 at 12:00 Miscellaneous Information 1 ea NOTE XX ; Start 03/25/17 at 14:00 Glucose (Glutose) 15 gm Q15M PRN PO DECREASED GLUCOSE; Start 03/25/17 at 14:00 Glucose (Glutose) 22.5 gm Q15M PRN PO DECREASED GLUCOSE; Start 03/25/17 at 14: 00 Dextrose (D50w Syringe) 25 ml Q15M PRN IV DECREASED GLUCOSE; Start 03/25/17 at 14:00 Dextrose (D50w Syringe) 50 ml Q15M PRN IV DECREASED GLUCOSE; Start 03/25/17 at 14:00 Glucagon (Glucagen) 1 mg Q15M PRN IM DECREASED GLUCOSE; Start 03/25/17 at 14: 00 Glucose (Glutose) 15 gm Q15M PRN BUCCAL DECREASED GLUCOSE; Start 03/25/17 at 14:00 MARKIE ORO DPM Mar 25, 2017 16:29 Dextrose (D50w Syringe) 25 ml Q15M PRN IV DECREASED GLUCOSE; Start 03/25/17 at 14:00 Dextrose (D50w Syringe) 50 ml Q15M PRN IV DECREASED GLUCOSE; Start 03/25/17 at 14:00 Glucagon (Glucagen) 1 mg Q15M PRN IM DECREASED GLUCOSE; Start 03/25/17 at 14: 00 Glucose (Glutose) 15 gm Q15M PRN BUCCAL DECREASED GLUCOSE; Start 03/25/17 at 14:00 MARKIE ORO DPM Mar 25, 2017 16:29
--- NOTE | 2017-03-25 17:14 | PN ---
Date/Time of Note Date/Time of Note DATE: 03/25/17 TIME: 17:08 Assessment/Plan VTE Prophylaxis VTE Prophylaxis Intervention: SCD's Lines/Catheters IV C[facility]ter Type [facility] [place] Assessment/Plan Chief Complaint/Hosp Course Assessment/Plan - Acute hypoxemic respiratory failure secondary to CHF exacerbation, continue to remove fluids with hemodialysis - End-stage renal disease, hemodialysis dependent. Dr. Newby is following in nephrology consultation. Continue on hemodialysis. - Hypertension. Continue home antihypertensive medication. Monitor blood pressure. - CAD - Permanent Pacemaker, Dr. Wagner is following in cardiology consultation - Legally blind status. - Anemia of chronic disease. - Severe peripheral vascular disease with severe infrapopliteal disease and pedal disease. - Left foot multiple gangrenous wounds. Further recommendations based on clinical course. Plan of care discussed with Dr. French. Problems: Exam/Review of Systems Vital Signs Vitals Vital Signs Date Time Temp Pulse Resp B/P Pulse Ox O2 Delivery O2 Flow Rate FiO2 03/25/17 16:06 75 03/25/17 15:20 98.7 20 158/73 95 03/25/17 11:00 Nasal Cannula 03/24/17 20:00 2.0 Intake and Output 03/24/17 03/24/17 03/25/17 15:00 23:00 07:00 Intake Total 400 ml Balance 400 ml Exam Constitutional: alert, oriented Head: normocephalic Eyes: other (Blind) Neck: supple Respiratory: clear to auscultation Cardiovascular: nl pulses Gastrointestinal: non-tender, soft Musculoskeletal: nl extremities to inspection Extremities: normal pulses, other (Left foot wounds) Neurological: nl mental status Results Result Diagram: 03/25/17 1221 03/25/17 1221 Results 24 hrs Laboratory Tests Test 03/24/17 20:08 03/24/17 20:51 03/25/17 07:38 03/25/17 08:54 B-Type Natriuretic Peptide > 515459 H Triglycerides Level 38 Cholesterol Level 160 LDL Cholesterol, Calculated 47 HDL Cholesterol 105 H Cholesterol/HDL Ratio 1.5 Free Thyroxine 1.60 Bedside Glucose 147 105 White Blood Count 5.9 # Red Blood Count 3.17 L Hemoglobin 8.2 L Hematocrit 26.1 L Mean Corpuscular Volume 82.3 Mean Corpuscular Hemoglobin 25.9 L Mean Corpuscular Hemoglobin Concent 31.4 L Red Cell Distribution Width 20.1 H Platelet Count 235 # Mean Platelet Volume 8.6 Neutrophils % 84.8 H Lymphocytes % 10.7 L Monocytes % 3.0 Eosinophils % 0.5 Basophils % 0.7 Nucleated Red Blood Cells % 0.0 Neutrophils # 5.0 Lymphocytes # 0.6 L Monocytes # 0.2 L Eosinophils # 0.0 Basophils # 0.0 Nucleated Red Blood Cells # 0.0 Hemoglobin A1c 5.1 Test 03/25/17 12:21 03/25/17 12:31 White Blood Count 6.3 Red Blood Count 3.35 L Hemoglobin 8.7 L Hematocrit 27.8 L Mean Corpuscular Volume 83.0 Mean Corpuscular Hemoglobin 26.0 L Mean Corpuscular Hemoglobin Concent 31.3 L Red Cell Distribution Width 20.5 H Platelet Count 220 Mean Platelet Volume 8.4 Neutrophils % 83.0 H Lymphocytes % 7.7 L Monocytes % 7.1 Eosinophils % 1.4 Basophils % 0.5 Nucleated Red Blood Cells % 0.0 Neutrophils # 5.3 Lymphocytes # 0.5 L Monocytes # 0.5 Eosinophils # 0.1 Basophils # 0.0 Nucleated Red Blood Cells # 0.0 Prothrombin Time 16.6 H Prothrombin Time Ratio 1.3 INR International Normalized Ratio 1.33 Activated Partial Thromboplast Time 45.1 H Sodium Level 138 Potassium Level 4.0 Chloride Level 94 L Carbon Dioxide Level 32 H Anion Gap 16 Blood Urea Nitrogen 47 #H Creatinine 5.23 #H Glucose Level 93 Calcium Level 9.3 Total Bilirubin 0.5 Direct Bilirubin 0.00 Indirect Bilirubin 0.5 Aspartate Amino Transf (AST/SGOT) 23 Alanine Aminotransferase (ALT/SGPT) 33 Alkaline Phosphatase 178 H Total Protein 7.1 Albumin 3.6 Globulin 3.50 H Albumin/Globulin Ratio 1.02 Prealbumin 19.2 Bedside Glucose 102 Medications Medications Current Medications Diagnostic Test (Pha) (Accu-Chek) 1 ea 02 XX ; Start 03/25/17 at 02:00 Amlodipine Besylate (Norvasc) 5 mg BID PO Last administered on 03/25/17 11:05 ; Admin Dose 5 MG; Start 03/24/17 at 21:00 Atorvastatin Calcium (Lipitor) 40 mg HS PO Last administered on 03/24/17 20: 53; Admin Dose 40 MG; Start 03/24/17 at 21:00 Cinacalcet (Sensipar) 30 mg BID PO Last administered on 03/25/17 10:57; Admin Dose 30 MG; Start 03/24/17 at 21:00 Clopidogrel Bisulfate (plaVIX) 75 mg DAILY PO Last administered on 03/25/17 10:56; Admin Dose 75 MG; Start 03/25/17 at 09:00 Losartan Potassium (Cozaar) 25 mg DAILY PO Last administered on 03/25/17 11: 05; Admin Dose 25 MG; Start 03/25/17 at 09:00 Zolpidem Tartrate (Ambien) 5 mg QHS PRN PO INSOMNIA; Start 03/24/17 at 20:00 Ondansetron HCl (Zofran Inj) 4 mg Q6H PRN IV NAUSEA AND/OR VOMITING; Start at 20:00 Acetaminophen (Tylenol Tab) 650 mg Q6H PRN PO PAIN AND OR ELEVATED TEMP; Start 03/24/17 at 20:00 Docusate Sodium (Colace) 100 mg DAILY PO Last administered on 03/24/17 22:04 ; Admin Dose 100 MG; Start 03/24/17 at 20:56 Al Hydrox/Mg Hydrox/Simethicone (Mag-Al Plus) 30 ml Q6H PRN PO GASTROINTESTINAL UPSET Last administered on 03/24/17 21:05; Admin Dose 30 ML; Start 03/24/17 at 21:00 Acetaminophen/ Hydrocodone Bitart ([place] (5/325)) 1 tab Q4H PRN PO PAIN Last administered on 03/25/17 13:25; Admin Dose 1 TAB; Start 03/25/17 at 03:06 Influenza Virus Vaccine (Fluzone) 0.5 ml ONCE ONCE IM* ; Start 03/26/17 at 09: 00; Stop 03/26/17 at 09:01 Miscellaneous Information (Pending [facility] Order For Wound Care) This patient mckeon... PRN PRN XX WOUND CARE; Start 03/25/17 at 08:30 Morphine Sulfate (morphine) 2 mg Q3 PRN IV PAIN LEVEL 4-7; Start 03/25/17 at 12:00 Miscellaneous Information 1 ea NOTE XX ; Start 03/25/17 at 14:00 Glucose (Glutose) 15 gm Q15M PRN PO DECREASED GLUCOSE; Start 03/25/17 at 14:00 Glucose (Glutose) 22.5 gm Q15M PRN PO DECREASED GLUCOSE; Start 03/25/17 at 14: 00 Dextrose (D50w Syringe) 25 ml Q15M PRN IV DECREASED GLUCOSE; Start 03/25/17 at 14:00 Dextrose (D50w Syringe) 50 ml Q15M PRN IV DECREASED GLUCOSE; Start 03/25/17 at 14:00 Glucagon (Glucagen) 1 mg Q15M PRN IM DECREASED GLUCOSE; Start 03/25/17 at 14: 00 Glucose (Glutose) 15 gm Q15M PRN BUCCAL DECREASED GLUCOSE; Start 03/25/17 at 14:00 VIV KING Mar 25, 2017 17:14
[2017-03-25] MEDS: ATORVASTATIN 40 MG TAB PO SCH (21:04)
--- NOTE | 2017-03-25 23:59 | HP ---
DATE OF ADMISSION: 03/24/2017 Dear Doctors: Mr. Thibodeaux is a 61-year-old gentleman known to our vascular surgery service group who is legally blind and has been evaluated over this past year. The patient was admitted back in [facility] er, which he had presented with left lower extremity gangrene involving his fifth toe, his heel, and his plantar aspect of his foot. At that time, patient underwent endovascular intervention of his l eft lower extremity and a followup angiogram which demonstrated patient having inline flow from his common femoral artery all the way down to his dorsalis pedis. However, the patient has significant pedal disease that would not be amenable for vascular intervention and limb salvage was limited upon our evaluation at that time. It seems that the patient also had developed a new area of heel gangr cody on his right lower extremity and which he also has atherosclerotic disease and required further intervention, but the patient presented to [facility] now with new signs of chest pain, being worked up for acute coronary syndrome. At the moment, the patient is resting comfortabl y in his bed. Denies shortness of breath, nausea, vomiting, fever or chills. Denies chest pain at the moment and he denies lower extremity pain. The patient does have a fistula via his left upper e xtremity in which he has been tolerating his dialysis sessions well. REVIEW OF SYSTEMS: A 14-point review performed and negative except what is mentioned in the HPI. PAST MEDICAL HISTORY: Entails end-stage renal disease, coronary artery disease, anemia of chronic d isease, diabetes, bilateral lower extremity atherosclerosis with gangrene, legally blind, hypertensi on and left diabetic foot infections. PAST SURGICAL HISTORY: Appendectomy, left upper extremity AV fistula creation, left lower extremity endovascular intervention. FAMILY HISTORY: Positive for hypertension and diabetes. SOCIAL HISTORY: Previous Ex-smoker. Denies current tobacco, alcohol or illicit drug use. PHYSICAL EXAMINATION: GENERAL: Alert and oriented x3, no apparent distress. HEENT: Legally blind. Normocephalic, atraumatic. Mucosa moist. Poor dentition. NECK: Supple. No carotid bruit. PULMONARY: Clear to auscultation bilaterally. No crackles. CARDIOVASCULAR: S1, S2 present, no murmur. S1, S2 present. No murmurs. ABDOMEN: Soft, nontender, nondistended. Bowel sounds positive. EXTREMITIES: Right lower extremity palpable femoral pulse, nonpalpable pedal pulse. Motor, sensory intact. Cap refill 3 to 4 seconds. No ulcers. He does have a gangrene of his right heel, which i s small in area, about 1 cm. Left lower extremity, palpable femoral pulse, nonpalpable pedal pulse. Motor and sensory intact. C ap refill 4 seconds. There is also an area of dependent rubor on his forefoot and gangrene of his f ourth and fifth toes that is dry. He also has tissue loss on his plantar aspect of the foot and on the heel. ASSESSMENT AND PLAN: 1. Bilateral lower extremity atherosclerosis with gangrene: It seems the patient had developed wor sening of his left lower extremity gangrene despite endovascular intervention. Upon his previous no ninvasive vascular studies, he does have infrainguinal disease; however, based on our angiogram last month he does have inline flow from his common femoral artery all the way to his dorsalis pedis. U nfortunately, the patient has severe pedal disease that will not be amenable for any surgical interv ention as he does have extensive wound gangrene and given his current cardiac issues, I would not re commend to pursue any further intervention. The patient and his daughter have been informed of him likely requiring a major amputation such as below knee amputation. However, there was no urgency of the matter as the patient does not show signs of severe infection, intolerable rest pain, or bacter emia. 2. Right lower extremity atherosclerosis with gangrene. The patient has developed new heel gangren e for which he will likely require intervention as well. At the moment, the patient will need to re cover from his cardiac status and we will plan to follow his wound care closely with our podiatry co lleagues and intervene when needed. 3. End-stage renal disease. The patient has been having no issues regarding his left upper extremi ty fistula. He did have areas of high velocities that were identified at the last ultrasound for ich we will plan for an eventual fistulogram once he has recovered from his cardiac issues. We will optimize vascular status (BP meds, diet, nutrition, exercise, sugar control, antiplatelets). Thank you for allowing us to partake in the care of your patient. Please call with any questions. Dictated By: AMOS KEYS MD CLAIM BENEFIT SPECIALIST/NTS Conf#: [id number] DID#: [id number]
[2017-03-26] VITALS (13 sets, daily range): BP systolic 122–181; BP diastolic 64–82; PULSE 6–82; RESP 16–19
[2017-03-26] MEDS: ACCU-CHEK XX SCH (01:01)
[2017-03-26] MEDS: HYDROCODONE/APAP (5/325) TAB PO PRN (01:16)
[2017-03-26 03:17] LABS: ABNORMAL IP MESSAGE 1; BASOPHILS % 0.3 % (0.0-2.0); EOSINOPHILS # 0.1 10^3/ul (0.0-0.5); EOSINOPHILS % 0.4 % (0.0-7.0); HEMATOCRIT 27.6 % (42.0-52.0); HEMOGLOBIN 8.7 g/dl (14.0-18.0); LYMPHOCYTES # 0.5 10^3/ul (0.8-2.9); LYMPHOCYTES % 3.8 % (15.0-51.0); MEAN CORPUSCULAR HGB CONC 31.5 g/dl (32.0-37.0); MEAN CORPUSCULAR VOLUME 82.4 fl (82.0-101.0); MEAN PLATELET VOLUME 8.7 fl (7.4-10.4); MONOCYTES % 7.3 % (0.0-11.0); NEUTROPHIL # 11.6 10^3/ul (1.6-7.5); NEUTROPHILS % 87.7 % (39.0-77.0); PLATELET COUNT 229 10^3/UL (140-415); POSITIVE DIFF @See below; RED BLOOD COUNT 3.35 10^6/ul (4.70-6.10); RED CELL DISTRIBUTION WIDTH 20.3 % (11.5-14.5); WHITE BLOOD COUNT 13.2 10^3/ul (4.8-10.8)
[2017-03-26 03:39] LABS: CALCIUM 8.9 mg/dl (8.4-10.2); CREATININE 6.5 mg/dl (0.61-1.24); POTASSIUM 5.1 mmol/L (3.5-5.1)
[2017-03-26] MEDS: HEPARIN 25000 UNITS/250 ML 250 ML IV SCH ×2 (03:46→16:23)
[2017-03-26] MEDS: morphine 2 MG INJ IV PRN ×4 (04:23→22:53)
[2017-03-26] MEDS: INSULIN ASPART [NOVOLOG] 3 ML PEN SC SCH ×4 (07:55→20:52)
[2017-03-26] MEDS: LOSARTAN 25 MG TAB PO SCH (08:21)
[2017-03-26] MEDS: SEVELAMER 800 MG TAB PO SCH ×3 (08:21→17:35)
[2017-03-26] MEDS: AMLODIPINE 5 MG TAB PO SCH ×2 (08:21→21:58)
[2017-03-26] MEDS: DOCUSATE SODIUM 100 MG CAP PO SCH (08:21)
[2017-03-26] MEDS: CLOPIDOGREL 75 MG TAB PO SCH (08:21)
[2017-03-26] MEDS: CINACALCET 30 MG TAB PO SCH ×2 (08:21→20:52)
[2017-03-26] MEDS: CALCIUM ACETATE 667 MG CAP PO SCH ×3 (08:21→17:35)
[2017-03-26] MEDS ORDERED: INFLUENZA VIRUS VACCINE 0.5 ML (DISPENSING) IM* ONE (09:00)
--- NOTE | 2017-03-26 09:39 | RADRPT ---
PROCEDURE: XR Chest. CLINICAL INDICATION: Cough TECHNIQUE: Single AP view of the chest was obtained COMPARISON: 06/07/2016 FINDINGS: Heart is enlarged, stable. New patchy and hazy opacities at the right lung base. Suggestion of retrocardiac opacity. No acute osseous abnormality. RPTAT: KK IMPRESSION: Cardiomegaly with congestive change. Moderate right and likely trace left pleural effusion. Underlyi ng process in the right lung is not excluded. Kavya Garcia Physician Date Time Electronically viewed and signed by Kavya Garcia Physician on 03/26/2017 09:38 DE/
--- NOTE | 2017-03-26 14:30 | CONS ---
Date/Time of Note Date/Time of Note DATE: 03/26/17 TIME: 14:29 Assessment/Plan Assessment/Plan Additional Assessment/Plan 61 yo Male with 1) Chest pain, CAD, R/o ACS possible NSTEMI 2) Uncontrolled HTN 3) ESRD on HD 4) Dm With Renal Complication, ESRD 5) Anemia, Chronic, CKD 6) MBD, CKD Cont Anti -HTN Rx Will cont to follow closely next HD will be ordered for tomorrow Pt refused today. Consultation Date/Type/Reason Admit Date/Time Mar 24, 2017 at 14:04 Type of Consultation: Renal Referring Provider: POLY THRASHER MD 24 HR Interval Summary Free Text/Dictation Refused HD today, prefers tomorrow. Constitutional: No requiring O2 Exam/Review of Systems Vital Signs Vitals Vital Signs Date Time Temp Pulse Resp B/P Pulse Ox O2 Delivery O2 Flow Rate FiO2 03/26/17 12:08 82 03/26/17 11:44 97.9 19 155/64 95 03/25/17 20:00 Nasal Cannula 2.0 Intake and Output 03/25/17 03/25/17 03/26/17 15:00 23:00 07:00 Intake Total 300 ml 700 ml 404 ml Output Total 3300 ml Balance -3000 ml 700 ml 404 ml Exam Constitutional: No distress Head: atraumatic Neck: No jvd Respiratory: clear to auscultation Cardiovascular: regular rate and rhythm, No edema Gastrointestinal: non-tender, soft Neurological: nl mental status, No lethargic Skin: No diaphoresis Results Result Diagram: 03/26/1731203/26/17 0313 Results 24 hrs Laboratory Tests Test 03/25/17 16:57 03/25/17 20:50 03/25/17 21:06 03/26/17 03:13 Bedside Glucose 110 125 Activated Partial Thromboplast Time 57.8 H 50.9 H White Blood Count 13.2 #H Red Blood Count 3.35 L Hemoglobin 8.7 L Hematocrit 27.6 L Mean Corpuscular Volume 82.4 Mean Corpuscular Hemoglobin 26.0 L Mean Corpuscular Hemoglobin Concent 31.5 L Red Cell Distribution Width 20.3 H Platelet Count 229 Mean Platelet Volume 8.7 Neutrophils % 87.7 H Lymphocytes % 3.8 L Monocytes % 7.3 Eosinophils % 0.4 Basophils % 0.3 Nucleated Red Blood Cells % 0.0 Neutrophils # 11.6 H Lymphocytes # 0.5 L Monocytes # 1.0 H Eosinophils # 0.1 Basophils # 0.0 Nucleated Red Blood Cells # 0.0 Sodium Level 136 Potassium Level 5.1 Chloride Level 94 L Carbon Dioxide Level 28 Anion Gap 19 H Blood Urea Nitrogen 59 H Creatinine 6.50 H Glucose Level 100 Calcium Level 8.9 Test 03/26/17 08:11 03/26/17 10:04 03/26/17 12:03 Bedside Glucose 75 135 Activated Partial Thromboplast Time 57.6 H Medications Medications Current Medications Diagnostic Test (Pha) (Accu-Chek) 1 ea 02 XX ; Start 03/25/17 at 02:00 Amlodipine Besylate (Norvasc) 5 mg BID PO Last administered on 03/26/17 08:21 ; Admin Dose 5 MG; Start 03/24/17 at 21:00 Atorvastatin Calcium (Lipitor) 40 mg HS PO Last administered on 03/25/17 21: 04; Admin Dose 40 MG; Start 03/24/17 at 21:00 Cinacalcet (Sensipar) 30 mg BID PO Last administered on 03/26/17 08:21; Admin Dose 30 MG; Start 03/24/17 at 21:00 Clopidogrel Bisulfate (plaVIX) 75 mg DAILY PO Last administered on 03/26/17 08:21; Admin Dose 75 MG; Start 03/25/17 at 09:00 Losartan Potassium (Cozaar) 25 mg DAILY PO Last administered on 03/26/17 08: 21; Admin Dose 25 MG; Start 03/25/17 at 09:00 Zolpidem Tartrate (Ambien) 5 mg QHS PRN PO INSOMNIA; Start 03/24/17 at 20:00 Ondansetron HCl (Zofran Inj) 4 mg Q6H PRN IV NAUSEA AND/OR VOMITING; Start at 20:00 Acetaminophen (Tylenol Tab) 650 mg Q6H PRN PO PAIN AND OR ELEVATED TEMP; Start 03/24/17 at 20:00 Docusate Sodium (Colace) 100 mg DAILY PO Last administered on 03/26/17 08:21 ; Admin Dose 100 MG; Start 03/24/17 at 20:56 Al Hydrox/Mg Hydrox/Simethicone (Mag-Al Plus) 30 ml Q6H PRN PO GASTROINTESTINAL UPSET Last administered on 03/24/17 21:05; Admin Dose 30 ML; Start 03/24/17 at 21:00 Acetaminophen/ Hydrocodone Bitart ([place] (5/325)) 1 tab Q4H PRN PO PAIN Last administered on 03/26/17 01:16; Admin Dose 1 TAB; Start 03/25/17 at 03:06 Miscellaneous Information (Pending [facility] Order For Wound Care) This patient mckeon... PRN PRN XX WOUND CARE; Start 03/25/17 at 08:30 Morphine Sulfate (morphine) 2 mg Q3 PRN IV PAIN LEVEL 4-7 Last administered on 03/26/17 12:09; Admin Dose 2 MG; Start 03/25/17 at 12:00 Miscellaneous Information 1 ea NOTE XX ; Start 03/25/17 at 14:00 Glucose (Glutose) 15 gm Q15M PRN PO DECREASED GLUCOSE; Start 03/25/17 at 14:00 Glucose (Glutose) 22.5 gm Q15M PRN PO DECREASED GLUCOSE; Start 03/25/17 at 14: 00 Dextrose (D50w Syringe) 25 ml Q15M PRN IV DECREASED GLUCOSE; Start 03/25/17 at 14:00 Dextrose (D50w Syringe) 50 ml Q15M PRN IV DECREASED GLUCOSE; Start 03/25/17 at 14:00 Glucagon (Glucagen) 1 mg Q15M PRN IM DECREASED GLUCOSE; Start 03/25/17 at 14: 00 Glucose (Glutose) 15 gm Q15M PRN BUCCAL DECREASED GLUCOSE; Start 03/25/17 at 14:00 PIPER FELIX MD Mar 26, 2017 14:30
--- NOTE | 2017-03-26 16:28 | PN ---
Date/Time of Note Date/Time of Note DATE: 03/26/17 TIME: 16:25 Assessment/Plan Lines/Catheters IV C[facility] (from [facility] Peripheral IV Assessment/Plan Chief Complaint/Hosp Course -Bilateral lower extremity atherosclerosis with gangrene: It seems the patient had developed worsening of his left lower extremity gangrene despite endovascular intervention. Upon his previous noninvasive vascular studies, he does have infrainguinal disease; however, based on our angiogram last month he does have inline flow from his common femoral artery all the way to his dorsalis pedis. Unfortunately, the patient has severe pedal disease that will not be amenable for any surgical intervention as he does have extensive wound gangrene and given his current cardiac issues, I would not recommend to pursue any further intervention. The patient and his daughter have been informed of him likely requiring a major amputation such as below knee amputation. However , there was no urgency of the matter as the patient does not show signs of severe infection, intolerable rest pain, or bacteremia. -Right lower extremity atherosclerosis with gangrene. The patient has developed new heel gangrene for which he will likely require intervention as well. At the moment, the patient will need to recover from his cardiac status and we will plan to follow his wound care closely with our podiatry colleagues and intervene when needed and cleared from cardiology -Appreciate cardiology input -End-stage renal disease. The patient has been having no issues regarding his left upper extremity fistula. He did have areas of high velocities that were identified at the last ultrasound for which we will plan for an eventual fistulogram once he has recovered from his cardiac issues. -Optimize vascular status (BP meds, diet, nutrition, exercise, sugar control, antiplatelets). -Thank you for allowing us to partake in the care of your patient. Please call with any questions. Problems: Subjective 24 Hr Interval Summary no new vascular events overnight Exam/Review of Systems Vital Signs Vitals Vital Signs Date Time Temp Pulse Resp B/P Pulse Ox O2 Delivery O2 Flow Rate FiO2 03/26/17 15:26 98.6 73 16 162/74 95 03/25/17 20:00 Nasal Cannula 2.0 Intake and Output 03/25/17 03/25/17 03/26/17 15:00 23:00 07:00 Intake Total 300 ml 700 ml 404 ml Output Total 3300 ml Balance -3000 ml 700 ml 404 ml Exam Free Text/Dictation GENERAL: Alert and oriented x3, n PULMONARY: Clear to auscultation bilaterally CARDIOVASCULAR: S1, S2 present, no murmur ABDOMEN: Soft, nontender, nondistended. Bowel sounds positive. EXTREMITIES: Right lower extremity palpable femoral pulse, nonpalpable pedal pulse. Motor, sensory intact. Cap refill 3 to 4 seconds. No ulcers. gangrene of his right heel, which is small in area 1 cm. Left lower extremity, palpable femoral pulse, nonpalpable pedal pulse. Motor and sensory intact. Cap refill 4 seconds. Dependent rubor on his forefoot and gangrene of his fourth and fifth toes that is dry. He also has tissue loss on his plantar aspect of the foot and on the heel. Results Result Diagram: 03/26/173 03/26/17 0313 AMOS KEYS MD Mar 26, 2017 16:28
--- NOTE | 2017-03-26 16:30 | PN ---
Date/Time of Note Date/Time of Note DATE: 03/26/17 TIME: 16:21 Assessment/Plan VTE Prophylaxis VTE Prophylaxis Intervention: SCD's Lines/Catheters IV Catheter Type (from [facility]): Peripheral IV Assessment/Plan Chief Complaint/Hosp Course Patient was low-grade fever and elevated white blood cells, will obtain blood cultures and chest x-ray, start broad-spectrum antibiotics Assessment/Plan - Acute hypoxemic respiratory failure secondary to CHF exacerbation, continue to remove fluids with hemodialysis - End-stage renal disease, hemodialysis dependent. Dr. Newby is following in nephrology consultation. Continue on hemodialysis. - Hypertension. Continue home antihypertensive medication. Monitor blood pressure. - CAD - Permanent Pacemaker, Dr. Wagner is following in cardiology consultation - Legally blind status. - Anemia of chronic disease. - Severe peripheral vascular disease with severe infrapopliteal disease and pedal disease. - Left foot multiple gangrenous wounds. Further recommendations based on clinical course. Plan of care discussed with Dr. French. Problems: Exam/Review of Systems Vital Signs Vitals Vital Signs Date Time Temp Pulse Resp B/P Pulse Ox O2 Delivery O2 Flow Rate FiO2 03/26/17 15:26 98.6 73 16 162/74 95 03/25/17 20:00 Nasal Cannula 2.0 Intake and Output 03/25/17 03/25/17 03/26/17 15:00 23:00 07:00 Intake Total 300 ml 700 ml 404 ml Output Total 3300 ml Balance -3000 ml 700 ml 404 ml Exam Constitutional: alert, oriented Eyes: other (Blind) Neck: supple Respiratory: clear to auscultation Cardiovascular: nl pulses Gastrointestinal: non-tender, soft Musculoskeletal: nl extremities to inspection Extremities: normal pulses, other (Left foot wounds) Results Result Diagram: 03/26/1731203/26/173 Results 24 hrs Laboratory Tests Test 03/25/17 16:57 03/25/17 20:50 03/25/17 21:06 03/26/17 03:13 Bedside Glucose 110 125 Activated Partial Thromboplast Time 57.8 H 50.9 H White Blood Count 13.2 #H Red Blood Count 3.35 L Hemoglobin 8.7 L Hematocrit 27.6 L Mean Corpuscular Volume 82.4 Mean Corpuscular Hemoglobin 26.0 L Mean Corpuscular Hemoglobin Concent 31.5 L Red Cell Distribution Width 20.3 H Platelet Count 229 Mean Platelet Volume 8.7 Neutrophils % 87.7 H Lymphocytes % 3.8 L Monocytes % 7.3 Eosinophils % 0.4 Basophils % 0.3 Nucleated Red Blood Cells % 0.0 Neutrophils # 11.6 H Lymphocytes # 0.5 L Monocytes # 1.0 H Eosinophils # 0.1 Basophils # 0.0 Nucleated Red Blood Cells # 0.0 Sodium Level 136 Potassium Level 5.1 Chloride Level 94 L Carbon Dioxide Level 28 Anion Gap 19 H Blood Urea Nitrogen 59 H Creatinine 6.50 H Glucose Level 100 Calcium Level 8.9 Test 03/26/17 08:11 03/26/17 10:04 03/26/17 12:03 Bedside Glucose 75 135 Activated Partial Thromboplast Time 57.6 H Medications Medications Current Medications Diagnostic Test (Pha) (Accu-Chek) 1 ea 02 XX ; Start 03/25/17 at 02:00 Amlodipine Besylate (Norvasc) 5 mg BID PO Last administered on 03/26/17 08:21 ; Admin Dose 5 MG; Start 03/24/17 at 21:00 Atorvastatin Calcium (Lipitor) 40 mg HS PO Last administered on 03/25/17 21: 04; Admin Dose 40 MG; Start 03/24/17 at 21:00 Cinacalcet (Sensipar) 30 mg BID PO Last administered on 03/26/17 08:21; Admin Dose 30 MG; Start 03/24/17 at 21:00 Clopidogrel Bisulfate (plaVIX) 75 mg DAILY PO Last administered on 03/26/17 08:21; Admin Dose 75 MG; Start 03/25/17 at 09:00 Losartan Potassium (Cozaar) 25 mg DAILY PO Last administered on 03/26/17 08: 21; Admin Dose 25 MG; Start 03/25/17 at 09:00 Zolpidem Tartrate (Ambien) 5 mg QHS PRN PO INSOMNIA; Start 03/24/17 at 20:00 Ondansetron HCl (Zofran Inj) 4 mg Q6H PRN IV NAUSEA AND/OR VOMITING; Start at 20:00 Acetaminophen (Tylenol Tab) 650 mg Q6H PRN PO PAIN AND OR ELEVATED TEMP; Start 03/24/17 at 20:00 Docusate Sodium (Colace) 100 mg DAILY PO Last administered on 03/26/17 08:21 ; Admin Dose 100 MG; Start 03/24/17 at 20:56 Al Hydrox/Mg Hydrox/Simethicone (Mag-Al Plus) 30 ml Q6H PRN PO GASTROINTESTINAL UPSET Last administered on 03/24/17 21:05; Admin Dose 30 ML; Start 03/24/17 at 21:00 Acetaminophen/ Hydrocodone Bitart ([place] (5/325)) 1 tab Q4H PRN PO PAIN Last administered on 03/26/17 01:16; Admin Dose 1 TAB; Start 03/25/17 at 03:06 Miscellaneous Information (Pending [facility] Order For Wound Care) This patient mckeon... PRN PRN XX WOUND CARE; Start 03/25/17 at 08:30 Morphine Sulfate (morphine) 2 mg Q3 PRN IV PAIN LEVEL 4-7 Last administered on 03/26/17 12:09; Admin Dose 2 MG; Start 03/25/17 at 12:00 Miscellaneous Information 1 ea NOTE XX ; Start 03/25/17 at 14:00 Glucose (Glutose) 15 gm Q15M PRN PO DECREASED GLUCOSE; Start 03/25/17 at 14:00 Glucose (Glutose) 22.5 gm Q15M PRN PO DECREASED GLUCOSE; Start 03/25/17 at 14: 00 Dextrose (D50w Syringe) 25 ml Q15M PRN IV DECREASED GLUCOSE; Start 03/25/17 at 14:00 Dextrose (D50w Syringe) 50 ml Q15M PRN IV DECREASED GLUCOSE; Start 03/25/17 at 14:00 Glucagon (Glucagen) 1 mg Q15M PRN IM DECREASED GLUCOSE; Start 03/25/17 at 14: 00 Glucose (Glutose) 15 gm Q15M PRN BUCCAL DECREASED GLUCOSE; Start 03/25/17 at 14:00 VIV KING Mar 26, 2017 16:30
[2017-03-26] MEDS ORDERED: VANCOMYCIN IV PER PHARMACY XX SCH (17:30)
[2017-03-26] MEDS: CEFTRIAXONE 1 GM/50 ML (PMX) 50 ML IVPB SCH (17:36)
--- NOTE | 2017-03-26 18:13 | RADRPT ---
Echocardiogram Report ADDENDUM Patient Name: CHANG OLSON Gender: Male Date: 1955 Study Date: 25-Mar-2017 Payroll Master: Pradip Sampson [facility] Location: 514-A Ref. Physician: IHSAN SULLIVAN Quality: Adequate Procedures: Transthoracic echocardiogram with complete 2D, M-Mode, and doppler examination. Indications: Chest Pain. 2D/M Mode Doppler Measurement Value Normal Ranges Measurement Value Normal Ranges LVIDd 2D 5.2 3.5 - 5.6 cm MARIA DOLORES Vmax 1.5 cm2 LVIDs 2D 4.2 2.1 - 4.1 cm AV Peak Adam 1.8 m/sec FS 2D 19.9 % AV Peak PG 13.0 mmHg LVPWd 2D 1.5 0.6 - 1.1 cm LVOT Peak Adam 1.0 m/sec IVSd 2D 1.7 0.6 - 1.1 cm LVOT Peak PG 4.0 mmHg IVS/LVPW 2D 1.1 MV E Peak Adam 1.4 m/sec AoR Diam 2D 2.8 2.0 - 3.7 cm MV A Peak Adam 0.5 m/sec LA/Ao 2D 2 0 - 1 MV E/A 2.6 EDV 2D 143.0 cm3 MV Decel Time 130 msec ESV 2D 73.6 cm3 MV E/A 2.6 LA Dimen 2D 4.8 2.3 - 4.0 cm MR Peak PG 73.0 mmHg LVOT Diam 1.8 cm MR Peak Adam 4.3 m/sec LVOT Area 2.5 cm2 TR Peak Adam 4.6 m/sec TR Peak PG 86.0 mmHg RVSP 94.0 mmHg Findings Left Ventricle: Normal left ventricular cavity size. Moderate concentric left ventricular hypertrophy. Mild global left ventricular systolic dysfunction. Ejection fraction is visually estimated at 40 %. Abnormal Diastolic Function. Right Ventricle: Normal right ventricular systolic function. Mild enlargement of right ventricle. Left Atrium: There is mild enlargement of left atrium. Right Atrium: There is moderate enlargement of right atrium. Mitral Valve: Mild mitral leaflet calcification. Mild mitral annular calcification. Mild to moderate mitral valve regurgitation. Aortic Valve: Aortic sclerosis without stenosis. Trace aortic valve regurgitation. Tricuspid Valve: Estimated peak PA systolic pressure 94 mmHg. Tricuspid valve appears mildly thickened. There is mild to moderate tricuspid regurgitation. Pulmonic Valve: Normal pulmonic valve appearance. There is mild pulmonic regurgitation. Pericardium: Left pleural effusion seen. Aorta: Normal aortic root. IVC: Normal size with poor respiratory collapse consistent with elevated right atrial pressure. Conclusions 1.Normal left ventricular cavity size. Moderate concentric left ventricular hypertrophy. Mild to mkoderate global left ventricular systolic dysfunction. Ejection fraction is visually estimated at 40 %. Abnormal Diastolic Function. 2.There is mild enlargement of left atrium. 3.There is moderate enlargement of right atrium. 4.Mild mitral leaflet calcification. Mild mitral annular calcification. Mild to moderate mitral valve regurgitation. 5.Aortic sclerosis without stenosis. Trace aortic valve regurgitation. 6.Estimated peak PA systolic pressure 94 mmHg. Tricuspid valve appears mildly thickened. There is mild to moderate tricuspid regurgitation. 7.Normal pulmonic valve appearance. There is mild pulmonic regurgitation. Electronically Signed By: Zaire Marino 26-Mar-2017 18:35:09 -0800 [ADDENDUM] Patient Name: CHANG OLSON Study Date: 25-Mar-2017 [id number]
[2017-03-26] MEDS ORDERED: VANCOMYCIN 1.25 GM in SOD CHLORIDE 0.9% 250 ML IVPB SCH (18:30)
--- NOTE | 2017-03-26 19:36 | CONS ---
DATE OF ADMISSION: 03/24/2017 DATE OF CONSULTATION: 03/26/2017 TYPE OF CONSULTATION: Infectious Disease. REASON FOR CONSULTATION: Antibiotic management. HISTORY OF PRESENT ILLNESS: The patient is a 61-year-old male with a number of problems, w ho was admitted with chest pain, elevated troponins, shortness of breath, and is being seen for anti biotic management. His past problems include: 1. Hypertension. 2. Hyperlipidemia. 3. Adult-onset diabetes mellitus. 4. Coronary artery disease. 5. Peripheral vascular disease, status post previous stenting, currently on Plavix. 6. End-stage renal disease, on hemodialysis. 7. Anemia of chronic disease. The patient presents with chest pain and dyspnea and hypoxemia. His O2 saturation was 88%, on 2 lit ers it went up to 100%. His last dialysis was 2 days ago. In general, he is feeling poorly. He mckeon s horrible peripheral vascular disease, chronic chest pain and leg pain. He has areas of dry gangre ne and necrosis of the left foot that does not appear infected, according to the admitting physician . He has decreased sensation in the left foot related to gangrenous changes. The patient is also b jose. Currently patient has low grade fever, elevated white count. Blood cultures were done. The patient was started on broad spectrum antibiotics. He has acute hypoxemic respiratory failure secon ailyn to congestive heart failure. He also has end-stage renal disease, on hemodialysis, being seen by Dr. Newby. He has a permanent pacemaker. Dr. Pike is following for Cardiology. He has anem ia of chronic disease, severe peripheral vascular disease with severe infrapopliteal disease and ped al disease, left foot multiple gangrenous wounds. PAST MEDICAL HISTORY: Operations as outlined. FAMILY HISTORY: Noncontributory. SOCIAL HISTORY: Does not smoke, drink or abuse drugs. ALLERGIES: NONE TO PENICILLIN, SULFA OR FOODS. MEDICATIONS: Per chart. REVIEW OF SYSTEMS: Noncontributory. PHYSICAL EXAMINATION: GENERAL: The patient is a chronically ill-appearing male who is awake, responsive, in no acute dist ress. VITAL SIGNS: Stable. He is afebrile. SKIN: Without generalized rash. HEENT: The patient is blind. NECK: Supple. LYMPH NODES: None palpable. CHEST: Decreased breath sounds at the bases. HEART: Without murmur or gallop. ABDOMEN: Soft, nontender, without organosplenomegaly or masses. EXTREMITIES: The patient has severe peripheral vascular disease with gangrenous changes of the toe. RECTAL AND GENITAL: Deferred. NEUROLOGIC: Decreased sensation in distal extremities. HOSPITAL COURSE: The patient was seen in vascular consultation by Dr. Zaragoza. He noted that the right lower extremity has palpable femoral pulse, nonpalpable pedal pulse, gangrene of the right he el, which is small in area. His left lower extremity had palpable pulses, nonpalpable pedal pulses, dependent rubor on the forefoot, dry gangrene of the 4th and 5th toes. His white count today is 13 .2. BUN and creatinine 59/0.5. The patient is currently on ceftriaxone and I assume he has receive d vancomycin, but I do not see that for sure. We are going to place him on vancomycin, pharmacy to dose. Blood cultures are pending. Urine cultures are pending. I will dictate my findings to Dr. Kristi ramirez and the aforementioned consultants. Dictated By: VANDA GARNER MD, JD/ZACK Conf#: [id number] DID#: [id number]
[2017-03-26] MEDS: ATORVASTATIN 40 MG TAB PO SCH (20:51)
[2017-03-26] MEDS: ZOLPIDEM 5 MG TAB PO PRN (21:57)
[2017-03-27] VITALS (19 sets, daily range): BP systolic 130–167; BP diastolic 64–74; PULSE 68–77; RESP 17–20
[2017-03-27] MEDS: ACCU-CHEK XX SCH (02:00)
[2017-03-27] MEDS: morphine 2 MG INJ IV PRN ×3 (02:33→19:37)
[2017-03-27 07:42] LABS: BASOPHILS % 0.6 % (0.0-2.0); EOSINOPHILS # 0.2 10^3/ul (0.0-0.5); EOSINOPHILS % 2.4 % (0.0-7.0); HEMATOCRIT 26.7 % (42.0-52.0); HEMOGLOBIN 8.6 g/dl (14.0-18.0); LYMPHOCYTES # 0.9 10^3/ul (0.8-2.9); LYMPHOCYTES % 12.6 % (15.0-51.0); MEAN CORPUSCULAR HEMOGLOBIN 26.4 pg (29.0-33.0); MEAN CORPUSCULAR HGB CONC 32.2 g/dl (32.0-37.0); MEAN CORPUSCULAR VOLUME 81.9 fl (82.0-101.0); MEAN PLATELET VOLUME 9.3 fl (7.4-10.4); MONOCYTE # 0.5 10^3/ul (0.3-0.9); MONOCYTES % 7.1 % (0.0-11.0); NEUTROPHIL # 5.4 10^3/ul (1.6-7.5); PLATELET COUNT 214 10^3/UL (140-415); RED BLOOD COUNT 3.26 10^6/ul (4.70-6.10); RED CELL DISTRIBUTION WIDTH 20.2 % (11.5-14.5)
[2017-03-27] MEDS: INSULIN ASPART [NOVOLOG] 3 ML PEN SC SCH ×4 (07:55→21:00)
[2017-03-27 08:05] LABS: CALCIUM 8.5 mg/dl (8.4-10.2); CREATININE 8.5 mg/dl (0.61-1.24); POTASSIUM 5.2 mmol/L (3.5-5.1)
[2017-03-27] MEDS: HEPARIN 25000 UNITS/250 ML 250 ML IV SCH ×2 (08:07→15:03)
[2017-03-27] MEDS: DOCUSATE SODIUM 100 MG CAP PO SCH (08:16)
[2017-03-27] MEDS: LOSARTAN 25 MG TAB PO SCH (08:16)
[2017-03-27] MEDS: CLOPIDOGREL 75 MG TAB PO SCH (08:16)
[2017-03-27] MEDS: CALCIUM ACETATE 667 MG CAP PO SCH ×3 (08:16→17:38)
[2017-03-27] MEDS: SEVELAMER 800 MG TAB PO SCH ×3 (08:16→17:37)
[2017-03-27] MEDS: CINACALCET 30 MG TAB PO SCH ×2 (08:16→21:28)
[2017-03-27] MEDS: AMLODIPINE 5 MG TAB PO SCH ×2 (08:17→21:28)
--- NOTE | 2017-03-27 12:29 | CONS ---
Date/Time of Note Date/Time of Note DATE: 03/27/17 TIME: 12:28 Assessment/Plan Assessment/Plan Chief Complaint/Hosp Course N o acute changes overnight patient is awake lying comfortably in bed no fevers WBC is 7 H&H 8.6 and 26.7 platelets 214 no shift no bands BUN 75 creatinine 8.50 Microbiology: Nare swab negative for MRSA Antimicrobials: patient is on Vanco Rocephin Diagnostics: chest x-ray yesterday revealed cardiomegaly with CHF and moderate right likely trace left pleural effusion Physical examination: well-developed elderly man who is in no distress. Head atraumatic normocephalic sclerae anicteric neck is supple chest rise symmetrical breath sounds diminished bases. Heart: S1-S2. Abdomen soft bowel sounds present extremities with left foot dry gangrene Assessment: 1. SIRS 2. L foot gangrene 3. ESRD 4. Anemia 5. DM 6. Coronary artery disease status post permanent pacemaker placement 7. Severe peripheral vascular disease Plan: Clinically stable, continue antibiotics, follow cardiology, nephrology, vascular recommendations Problems: Consultation Date/Type/Reason Admit Date/Time Mar 24, 2017 at 14:04 Initial Consult Date Type of Consultation: id Referring Provider: POLY THRASHER MD Exam/Review of Systems Vital Signs Vitals Vital Signs Date Time Temp Pulse Resp B/P Pulse Ox O2 Delivery O2 Flow Rate FiO2 03/27/17 12:15 69 03/27/17 11:13 97.6 20 157/74 95 03/26/17 20:00 Nasal Cannula 03/25/17 20:00 2.0 Intake and Output 03/26/17 03/26/17 03/27/17 15:00 23:00 07:00 Intake Total 834 ml 420 ml Output Total 0 ml Balance 834 ml 420 ml Results Result Diagram: 03/27/17 0704 03/27/17 0704 Results 24 hrs Laboratory Tests Test 03/26/17 16:05 03/26/17 16:56 03/26/17 20:40 03/27/17 07:04 Activated Partial Thromboplast Time 62.4 H 70.0 H Bedside Glucose 147 108 White Blood Count 7.0 # Red Blood Count 3.26 L Hemoglobin 8.6 L Hematocrit 26.7 L Mean Corpuscular Volume 81.9 L Mean Corpuscular Hemoglobin 26.4 L Mean Corpuscular Hemoglobin Concent 32.2 Red Cell Distribution Width 20.2 H Platelet Count 214 Mean Platelet Volume 9.3 Neutrophils % 77.0 Lymphocytes % 12.6 L Monocytes % 7.1 Eosinophils % 2.4 Basophils % 0.6 Nucleated Red Blood Cells % 0.0 Neutrophils # 5.4 Lymphocytes # 0.9 Monocytes # 0.5 Eosinophils # 0.2 Basophils # 0.0 Nucleated Red Blood Cells # 0.0 Sodium Level 136 Potassium Level 5.2 H Chloride Level 91 L Carbon Dioxide Level 27 Anion Gap 23 H Blood Urea Nitrogen 75 H Creatinine 8.50 #H Glucose Level 73 Calcium Level 8.5 Test 03/27/17 07:55 03/27/17 11:21 03/27/17 11:56 Bedside Glucose 75 102 Troponin I 0.679 *H Medications Medications Current Medications Diagnostic Test (Pha) (Accu-Chek) 1 ea 02 XX ; Start 03/25/17 at 02:00 Amlodipine Besylate (Norvasc) 5 mg BID PO Last administered on 03/27/17 08:17 ; Admin Dose 5 MG; Start 03/24/17 at 21:00 Atorvastatin Calcium (Lipitor) 40 mg HS PO Last administered on 03/26/17 20: 51; Admin Dose 40 MG; Start 03/24/17 at 21:00 Cinacalcet (Sensipar) 30 mg BID PO Last administered on 03/27/17 08:16; Admin Dose 30 MG; Start 03/24/17 at 21:00 Clopidogrel Bisulfate (plaVIX) 75 mg DAILY PO Last administered on 03/27/17 08:16; Admin Dose 75 MG; Start 03/25/17 at 09:00 Losartan Potassium (Cozaar) 25 mg DAILY PO Last administered on 03/27/17 08: 16; Admin Dose 25 MG; Start 03/25/17 at 09:00 Zolpidem Tartrate (Ambien) 5 mg QHS PRN PO INSOMNIA Last administered on 21:57; Admin Dose 5 MG; Start 03/24/17 at 20:00 Ondansetron HCl (Zofran Inj) 4 mg Q6H PRN IV NAUSEA AND/OR VOMITING; Start at 20:00 Acetaminophen (Tylenol Tab) 650 mg Q6H PRN PO PAIN AND OR ELEVATED TEMP; Start 03/24/17 at 20:00 Docusate Sodium (Colace) 100 mg DAILY PO Last administered on 03/27/17 08:16 ; Admin Dose 100 MG; Start 03/24/17 at 20:56 Al Hydrox/Mg Hydrox/Simethicone (Mag-Al Plus) 30 ml Q6H PRN PO GASTROINTESTINAL UPSET Last administered on 03/24/17 21:05; Admin Dose 30 ML; Start 03/24/17 at 21:00 Acetaminophen/ Hydrocodone Bitart ([place] (5/325)) 1 tab Q4H PRN PO PAIN Last administered on 03/26/17 01:16; Admin Dose 1 TAB; Start 03/25/17 at 03:06 Miscellaneous Information (Pending [facility] Order For Wound Care) This patient mckeon... PRN PRN XX WOUND CARE; Start 03/25/17 at 08:30 Morphine Sulfate (morphine) 2 mg Q3 PRN IV PAIN LEVEL 4-7 Last administered on 03/27/17 10:21; Admin Dose 2 MG; Start 03/25/17 at 12:00 Miscellaneous Information 1 ea NOTE XX ; Start 03/25/17 at 14:00 Glucose (Glutose) 15 gm Q15M PRN PO DECREASED GLUCOSE; Start 03/25/17 at 14:00 Glucose (Glutose) 22.5 gm Q15M PRN PO DECREASED GLUCOSE; Start 03/25/17 at 14: 00 Dextrose (D50w Syringe) 25 ml Q15M PRN IV DECREASED GLUCOSE; Start 03/25/17 at 14:00 Dextrose (D50w Syringe) 50 ml Q15M PRN IV DECREASED GLUCOSE; Start 03/25/17 at 14:00 Glucagon (Glucagen) 1 mg Q15M PRN IM DECREASED GLUCOSE; Start 03/25/17 at 14: 00 Glucose 15 gm 15 gm Q15M PRN BUCCAL DECREASED GLUCOSE; Start 03/25/17 at 14:00 Ceftriaxone Sodium (Rocephin) 50 ml @ 100 mls/hr Q24H IVPB Last administered on 03/26/17 17:36; Admin Dose 100 MLS/HR; Start 03/26/17 at 17:00 Miscellaneous Information (*Rx Drug Level Order Reminder*) RANDOM VANCOMYCIN LEVEL ... ONCE ONCE XX ; Start 03/28/17 at 05:00; Stop 03/28/17 at 05:01 SHITAL MCKEON NP Mar 27, 2017 12:29
--- NOTE | 2017-03-27 13:36 | CONS ---
Date/Time of Note Date/Time of Note DATE: 03/27/17 TIME: 13:34 Assessment/Plan Assessment/Plan Additional Assessment/Plan 61 yo Male with 1) Chest pain, CAD, R/o ACS possible NSTEMI 2) Uncontrolled HTN 3) ESRD on HD 4) Dm With Renal Complication, ESRD 5) Anemia, Chronic, CKD 6) MBD, CKD Cont Anti -HTN Rx Will cont to follow closely next HD will be ordered for today TTS schedule at this time. Consultation Date/Type/Reason Admit Date/Time Mar 24, 2017 at 14:04 Type of Consultation: Renal Referring Provider: POLY THRASHER MD 24 HR Interval Summary Free Text/Dictation No new complaints. Pending HD today. Constitutional: No requiring O2 Exam/Review of Systems Vital Signs Vitals Vital Signs Date Time Temp Pulse Resp B/P Pulse Ox O2 Delivery O2 Flow Rate FiO2 03/27/17 12:15 69 03/27/17 11:13 97.6 20 157/74 95 03/26/17 20:00 Nasal Cannula 03/25/17 20:00 2.0 Intake and Output 03/26/17 03/26/17 03/27/17 15:00 23:00 07:00 Intake Total 834 ml 420 ml Output Total 0 ml Balance 834 ml 420 ml Exam Constitutional: alert, oriented, No distress ENMT: mucosa pink and moist Neck: No jvd Respiratory: clear to auscultation Cardiovascular: regular rate and rhythm, No edema Gastrointestinal: non-tender, soft Neurological: nl mental status, No confused, No lethargic Skin: No diaphoresis Results Result Diagram: 03/27/17 0704 03/27/17 0704 Results 24 hrs Laboratory Tests Test 03/26/17 16:05 03/26/17 16:56 03/26/17 20:40 03/27/17 07:04 Activated Partial Thromboplast Time 62.4 H 70.0 H Bedside Glucose 147 108 White Blood Count 7.0 # Red Blood Count 3.26 L Hemoglobin 8.6 L Hematocrit 26.7 L Mean Corpuscular Volume 81.9 L Mean Corpuscular Hemoglobin 26.4 L Mean Corpuscular Hemoglobin Concent 32.2 Red Cell Distribution Width 20.2 H Platelet Count 214 Mean Platelet Volume 9.3 Neutrophils % 77.0 Lymphocytes % 12.6 L Monocytes % 7.1 Eosinophils % 2.4 Basophils % 0.6 Nucleated Red Blood Cells % 0.0 Neutrophils # 5.4 Lymphocytes # 0.9 Monocytes # 0.5 Eosinophils # 0.2 Basophils # 0.0 Nucleated Red Blood Cells # 0.0 Sodium Level 136 Potassium Level 5.2 H Chloride Level 91 L Carbon Dioxide Level 27 Anion Gap 23 H Blood Urea Nitrogen 75 H Creatinine 8.50 #H Glucose Level 73 Calcium Level 8.5 Test 03/27/17 07:55 03/27/17 11:21 03/27/17 11:56 Bedside Glucose 75 102 Troponin I 0.679 *H Medications Medications Current Medications Diagnostic Test (Pha) (Accu-Chek) 1 ea 02 XX ; Start 03/25/17 at 02:00 Amlodipine Besylate (Norvasc) 5 mg BID PO Last administered on 03/27/17 08:17 ; Admin Dose 5 MG; Start 03/24/17 at 21:00 Atorvastatin Calcium (Lipitor) 40 mg HS PO Last administered on 03/26/17 20: 51; Admin Dose 40 MG; Start 03/24/17 at 21:00 Cinacalcet (Sensipar) 30 mg BID PO Last administered on 03/27/17 08:16; Admin Dose 30 MG; Start 03/24/17 at 21:00 Clopidogrel Bisulfate (plaVIX) 75 mg DAILY PO Last administered on 03/27/17 08:16; Admin Dose 75 MG; Start 03/25/17 at 09:00 Losartan Potassium (Cozaar) 25 mg DAILY PO Last administered on 03/27/17 08: 16; Admin Dose 25 MG; Start 03/25/17 at 09:00 Zolpidem Tartrate (Ambien) 5 mg QHS PRN PO INSOMNIA Last administered on 21:57; Admin Dose 5 MG; Start 03/24/17 at 20:00 Ondansetron HCl (Zofran Inj) 4 mg Q6H PRN IV NAUSEA AND/OR VOMITING; Start at 20:00 Acetaminophen (Tylenol Tab) 650 mg Q6H PRN PO PAIN AND OR ELEVATED TEMP; Start 03/24/17 at 20:00 Docusate Sodium (Colace) 100 mg DAILY PO Last administered on 03/27/17 08:16 ; Admin Dose 100 MG; Start 03/24/17 at 20:56 Al Hydrox/Mg Hydrox/Simethicone (Mag-Al Plus) 30 ml Q6H PRN PO GASTROINTESTINAL UPSET Last administered on 03/24/17 21:05; Admin Dose 30 ML; Start 03/24/17 at 21:00 Acetaminophen/ Hydrocodone Bitart ([place] (5/325)) 1 tab Q4H PRN PO PAIN Last administered on 03/26/17 01:16; Admin Dose 1 TAB; Start 03/25/17 at 03:06 Miscellaneous Information ([facility]) This patient mckeon... PRN PRN XX WOUND CARE; Start 03/25/17 at 08:30 Morphine Sulfate (morphine) 2 mg Q3 PRN IV PAIN LEVEL 4-7 Last administered on 03/27/17 10:21; Admin Dose 2 MG; Start 03/25/17 at 12:00 Miscellaneous Information 1 ea NOTE XX ; Start 03/25/17 at 14:00 Glucose (Glutose) 15 gm Q15M PRN PO DECREASED GLUCOSE; Start 03/25/17 at 14:00 Glucose (Glutose) 22.5 gm Q15M PRN PO DECREASED GLUCOSE; Start 03/25/17 at 14: 00 Dextrose (D50w Syringe) 25 ml Q15M PRN IV DECREASED GLUCOSE; Start 03/25/17 at 14:00 Dextrose (D50w Syringe) 50 ml Q15M PRN IV DECREASED GLUCOSE; Start 03/25/17 at 14:00 Glucagon (Glucagen) 1 mg Q15M PRN IM DECREASED GLUCOSE; Start 03/25/17 at 14: 00 Glucose 15 gm 15 gm Q15M PRN BUCCAL DECREASED GLUCOSE; Start 03/25/17 at 14:00 Ceftriaxone Sodium (Rocephin) 50 ml @ 100 mls/hr Q24H IVPB Last administered on 03/26/17 17:36; Admin Dose 100 MLS/HR; Start 03/26/17 at 17:00 Miscellaneous Information (*Rx Drug Level Order Reminder*) RANDOM VANCOMYCIN LEVEL ... ONCE ONCE XX ; Start 03/28/17 at 05:00; Stop 03/28/17 at 05:01 PIPER FELIX MD Mar 27, 2017 13:36
--- NOTE | 2017-03-27 14:08 | CONS ---
Date/Time of Note Date/Time of Note DATE: 03/27/17 TIME: 14:06 Assessment/Plan Assessment/Plan Chief Complaint/Hosp Course will stop the IV heparin today Will follow up and the pt is now having bilateral gangrene of the feet. The pt will need an amputation of the left foot, but he is refusing it. Problems: Consultation Date/Type/Reason Admit Date/Time Mar 24, 2017 at 14:04 Initial Consult Date Type of Consultation: Renal Referring Provider: POLY THRASHER MD 24 HR Interval Summary Free Text/Dictation The pt is feeling better No pain in the foot No cp or sob The trop is elevated but the pt had an angiogram but did not need intervention in the recent past. Exam/Review of Systems Vital Signs Vitals Vital Signs Date Time Temp Pulse Resp B/P Pulse Ox O2 Delivery O2 Flow Rate FiO2 03/27/17 12:15 69 03/27/17 11:13 97.6 20 157/74 95 03/26/17 20:00 Nasal Cannula 03/25/17 20:00 2.0 Intake and Output 03/26/17 03/26/17 03/27/17 15:00 23:00 07:00 Intake Total 834 ml 420 ml Output Total 0 ml Balance 834 ml 420 ml Results Result Diagram: 03/27/1770303/27/17 0704 Results 24 hrs Laboratory Tests Test 03/26/17 16:05 03/26/17 16:56 03/26/17 20:40 03/27/17 07:04 Activated Partial Thromboplast Time 62.4 H 70.0 H Bedside Glucose 147 108 White Blood Count 7.0 # Red Blood Count 3.26 L Hemoglobin 8.6 L Hematocrit 26.7 L Mean Corpuscular Volume 81.9 L Mean Corpuscular Hemoglobin 26.4 L Mean Corpuscular Hemoglobin Concent 32.2 Red Cell Distribution Width 20.2 H Platelet Count 214 Mean Platelet Volume 9.3 Neutrophils % 77.0 Lymphocytes % 12.6 L Monocytes % 7.1 Eosinophils % 2.4 Basophils % 0.6 Nucleated Red Blood Cells % 0.0 Neutrophils # 5.4 Lymphocytes # 0.9 Monocytes # 0.5 Eosinophils # 0.2 Basophils # 0.0 Nucleated Red Blood Cells # 0.0 Sodium Level 136 Potassium Level 5.2 H Chloride Level 91 L Carbon Dioxide Level 27 Anion Gap 23 H Blood Urea Nitrogen 75 H Creatinine 8.50 #H Glucose Level 73 Calcium Level 8.5 Test 03/27/17 07:55 03/27/17 11:21 03/27/17 11:56 Bedside Glucose 75 102 Troponin I 0.679 *H Medications Medications Current Medications Diagnostic Test (Pha) (Accu-Chek) 1 ea 02 XX ; Start 03/25/17 at 02:00 Amlodipine Besylate (Norvasc) 5 mg BID PO Last administered on 03/27/17 08:17 ; Admin Dose 5 MG; Start 03/24/17 at 21:00 Atorvastatin Calcium (Lipitor) 40 mg HS PO Last administered on 03/26/17 20: 51; Admin Dose 40 MG; Start 03/24/17 at 21:00 Cinacalcet (Sensipar) 30 mg BID PO Last administered on 03/27/17 08:16; Admin Dose 30 MG; Start 03/24/17 at 21:00 Clopidogrel Bisulfate (plaVIX) 75 mg DAILY PO Last administered on 03/27/17 08:16; Admin Dose 75 MG; Start 03/25/17 at 09:00 Losartan Potassium (Cozaar) 25 mg DAILY PO Last administered on 03/27/17 08: 16; Admin Dose 25 MG; Start 03/25/17 at 09:00 Zolpidem Tartrate (Ambien) 5 mg QHS PRN PO INSOMNIA Last administered on 21:57; Admin Dose 5 MG; Start 03/24/17 at 20:00 Ondansetron HCl (Zofran Inj) 4 mg Q6H PRN IV NAUSEA AND/OR VOMITING; Start at 20:00 Acetaminophen (Tylenol Tab) 650 mg Q6H PRN PO PAIN AND OR ELEVATED TEMP; Start 03/24/17 at 20:00 Docusate Sodium (Colace) 100 mg DAILY PO Last administered on 03/27/17 08:16 ; Admin Dose 100 MG; Start 03/24/17 at 20:56 Al Hydrox/Mg Hydrox/Simethicone (Mag-Al Plus) 30 ml Q6H PRN PO GASTROINTESTINAL UPSET Last administered on 03/24/17 21:05; Admin Dose 30 ML; Start 03/24/17 at 21:00 Acetaminophen/ Hydrocodone Bitart ([place] (5/325)) 1 tab Q4H PRN PO PAIN Last administered on 03/26/17 01:16; Admin Dose 1 TAB; Start 03/25/17 at 03:06 Miscellaneous Information (Pending [facility] Order For Wound Care) This patient mckeon... PRN PRN XX WOUND CARE; Start 03/25/17 at 08:30 Morphine Sulfate (morphine) 2 mg Q3 PRN IV PAIN LEVEL 4-7 Last administered on 03/27/17 10:21; Admin Dose 2 MG; Start 03/25/17 at 12:00 Miscellaneous Information 1 ea NOTE XX ; Start 03/25/17 at 14:00 Glucose (Glutose) 15 gm Q15M PRN PO DECREASED GLUCOSE; Start 03/25/17 at 14:00 Glucose (Glutose) 22.5 gm Q15M PRN PO DECREASED GLUCOSE; Start 03/25/17 at 14: 00 Dextrose (D50w Syringe) 25 ml Q15M PRN IV DECREASED GLUCOSE; Start 03/25/17 at 14:00 Dextrose (D50w Syringe) 50 ml Q15M PRN IV DECREASED GLUCOSE; Start 03/25/17 at 14:00 Glucagon (Glucagen) 1 mg Q15M PRN IM DECREASED GLUCOSE; Start 03/25/17 at 14: 00 Glucose 15 gm 15 gm Q15M PRN BUCCAL DECREASED GLUCOSE; Start 03/25/17 at 14:00 Ceftriaxone Sodium (Rocephin) 50 ml @ 100 mls/hr Q24H IVPB Last administered on 03/26/17 17:36; Admin Dose 100 MLS/HR; Start 03/26/17 at 17:00 Miscellaneous Information (*Rx Drug Level Order Reminder*) RANDOM VANCOMYCIN LEVEL ... ONCE ONCE XX ; Start 03/28/17 at 05:00; Stop 03/28/17 at 05:01 ARVIND SHIRLEY MD Mar 27, 2017 14:08
--- NOTE | 2017-03-27 15:14 | PN ---
Date/Time of Note Date/Time of Note DATE: 03/27/17 TIME: 15:12 Assessment/Plan Lines/Catheters IV Catheter Type (from [facility] Assessment/Plan Assessment/Plan - Acute hypoxemic respiratory failure secondary to CHF exacerbation, continue to remove fluids with hemodialysis - End-stage renal disease, hemodialysis dependent. Dr. Newby is following in nephrology consultation. Continue on hemodialysis. - Hypertension. Continue home antihypertensive medication. Monitor blood pressure. - CAD - Permanent Pacemaker, Dr. Wagner is following in cardiology consultation - Legally blind status. - Anemia of chronic disease. - Severe peripheral vascular disease with severe infrapopliteal disease and pedal disease. - Left foot multiple gangrenous wounds. Further recommendations based on clinical course. Plan of care discussed with Dr. French. Subjective 24 Hr Interval Summary Free Text/Dictation NAD Having HD- tolerating well no new issues Respiratory: no complaints Genitourinary: no complaints Musculoskeletal: no complaints Exam/Review of Systems Vital Signs Vitals Vital Signs Date Time Temp Pulse Resp B/P Pulse Ox O2 Delivery O2 Flow Rate FiO2 03/27/17 14:00 72 15 03/27/17 11:13 97.6 157/74 95 03/26/17 20:00 Nasal Cannula 03/25/17 20:00 2.0 Intake and Output 03/26/17 03/26/17 03/27/17 15:00 23:00 07:00 Intake Total 834 ml 420 ml Output Total 0 ml Balance 834 ml 420 ml Exam Respiratory: diminished breath sounds, normal air movement Cardiovascular: nl pulses Gastrointestinal: soft Genitourinary - Male: other (HD) Results Result Diagram: 03/27/17 0704 03/27/17 0704 Results 24 hrs Laboratory Tests Test 03/26/17 16:05 03/26/17 16:56 03/26/17 20:40 03/27/17 07:04 Activated Partial Thromboplast Time 62.4 H 70.0 H Bedside Glucose 147 108 White Blood Count 7.0 # Red Blood Count 3.26 L Hemoglobin 8.6 L Hematocrit 26.7 L Mean Corpuscular Volume 81.9 L Mean Corpuscular Hemoglobin 26.4 L Mean Corpuscular Hemoglobin Concent 32.2 Red Cell Distribution Width 20.2 H Platelet Count 214 Mean Platelet Volume 9.3 Neutrophils % 77.0 Lymphocytes % 12.6 L Monocytes % 7.1 Eosinophils % 2.4 Basophils % 0.6 Nucleated Red Blood Cells % 0.0 Neutrophils # 5.4 Lymphocytes # 0.9 Monocytes # 0.5 Eosinophils # 0.2 Basophils # 0.0 Nucleated Red Blood Cells # 0.0 Sodium Level 136 Potassium Level 5.2 H Chloride Level 91 L Carbon Dioxide Level 27 Anion Gap 23 H Blood Urea Nitrogen 75 H Creatinine 8.50 #H Glucose Level 73 Calcium Level 8.5 Test 03/27/17 07:55 03/27/17 11:21 03/27/17 11:56 03/27/17 13:46 Bedside Glucose 75 102 Troponin I 0.679 *H Activated Partial Thromboplast Time 56.8 H Medications Medications Current Medications Diagnostic Test (Pha) (Accu-Chek) 1 02 XX ; Start 03/25/17 at 02:00 Amlodipine Besylate (Norvasc) 5 mg BID PO Last administered on 03/27/17 08:17 ; Admin Dose 5 MG; Start 03/24/17 at 21:00 Atorvastatin Calcium (Lipitor) 40 mg HS PO Last administered on 03/26/17 20: 51; Admin Dose 40 MG; Start 03/24/17 at 21:00 Cinacalcet (Sensipar) 30 mg BID PO Last administered on 03/27/17 08:16; Admin Dose 30 MG; Start 03/24/17 at 21:00 Clopidogrel Bisulfate (plaVIX) 75 mg DAILY PO Last administered on 03/27/17 08:16; Admin Dose 75 MG; Start 03/25/17 at 09:00 Losartan Potassium (Cozaar) 25 mg DAILY PO Last administered on 03/27/17 08: 16; Admin Dose 25 MG; Start 03/25/17 at 09:00 Zolpidem Tartrate (Ambien) 5 mg QHS PRN PO INSOMNIA Last administered on 21:57; Admin Dose 5 MG; Start 03/24/17 at 20:00 Ondansetron HCl (Zofran Inj) 4 mg Q6H PRN IV NAUSEA AND/OR VOMITING; Start at 20:00 Acetaminophen (Tylenol Tab) 650 mg Q6H PRN PO PAIN AND OR ELEVATED TEMP; Start 03/24/17 at 20:00 Docusate Sodium (Colace) 100 mg DAILY PO Last administered on 03/27/17 08:16 ; Admin Dose 100 MG; Start 03/24/17 at 20:56 Al Hydrox/Mg Hydrox/Simethicone (Mag-Al Plus) 30 ml Q6H PRN PO GASTROINTESTINAL UPSET Last administered on 03/24/17 21:05; Admin Dose 30 ML; Start 03/24/17 at 21:00 Acetaminophen/ Hydrocodone Bitart ([place] (5/325)) 1 tab Q4H PRN PO PAIN Last administered on 03/26/17 01:16; Admin Dose 1 TAB; Start 03/25/17 at 03:06 Miscellaneous Information (Pending [facility] Order For Wound Care) This patient mckeon... PRN PRN XX WOUND CARE; Start 03/25/17 at 08:30 Morphine Sulfate (morphine) 2 mg Q3 PRN IV PAIN LEVEL 4-7 Last administered on 03/27/17 10:21; Admin Dose 2 MG; Start 03/25/17 at 12:00 Miscellaneous Information 1 ea NOTE XX ; Start 03/25/17 at 14:00 Glucose (Glutose) 15 gm Q15M PRN PO DECREASED GLUCOSE; Start 03/25/17 at 14:00 Glucose (Glutose) 22.5 gm Q15M PRN PO DECREASED GLUCOSE; Start 03/25/17 at 14: 00 Dextrose (D50w Syringe) 25 ml Q15M PRN IV DECREASED GLUCOSE; Start 03/25/17 at 14:00 Dextrose (D50w Syringe) 50 ml Q15M PRN IV DECREASED GLUCOSE; Start 03/25/17 at 14:00 Glucagon (Glucagen) 1 mg Q15M PRN IM DECREASED GLUCOSE; Start 03/25/17 at 14: 00 Glucose 15 gm 15 gm Q15M PRN BUCCAL DECREASED GLUCOSE; Start 03/25/17 at 14:00 Ceftriaxone Sodium (Rocephin) 50 ml @ 100 mls/hr Q24H IVPB Last administered on 03/26/17 17:36; Admin Dose 100 MLS/HR; Start 03/26/17 at 17:00 Miscellaneous Information (*Rx Drug Level Order Reminder*) RANDOM VANCOMYCIN LEVEL ... ONCE ONCE XX ; Start 03/28/17 at 05:00; Stop 03/28/17 at 05:01 IHSAN SULLIVAN Mar 27, 2017 15:14
[2017-03-27] MEDS: CEFTRIAXONE 1 GM/50 ML (PMX) 50 ML IVPB SCH (17:37)
[2017-03-27] MEDS: ATORVASTATIN 40 MG TAB PO SCH (21:28)
[2017-03-27] MEDS: AL HYDROX/MG HYDROX/SIMETH 30 ML CUP PO PRN (23:01)
[2017-03-28] VITALS (14 sets, daily range): BP systolic 123–200; BP diastolic 60–94; PULSE 69–77; RESP 18–20
[2017-03-28] MEDS: ACCU-CHEK XX SCH (02:00)
--- NOTE | 2017-03-28 06:15 | CONS ---
Date/Time of Note Date/Time of Note DATE: 03/28/17 TIME: 06:14 Assessment/Plan Assessment/Plan Additional Assessment/Plan 61 yo Male with 1) Chest pain, CAD, R/o ACS possible NSTEMI 2) Uncontrolled HTN 3) ESRD on HD 4) Dm With Renal Complication, ESRD 5) Anemia, Chronic, CKD 6) MBD, CKD Cont Anti -HTN Rx Will cont to follow closely next HD will be ordered for Friday TTS schedule at this time. Consultation Date/Type/Reason Admit Date/Time Mar 24, 2017 at 14:04 Type of Consultation: Renal Referring Provider: POLY THRASHER MD 24 HR Interval Summary Constitutional: No requiring O2 Exam/Review of Systems Vital Signs Vitals Vital Signs Date Time Temp Pulse Resp B/P Pulse Ox O2 Delivery O2 Flow Rate FiO2 03/28/17 04:38 75 03/28/17 03:50 98.3 20 155/71 95 03/26/17 20:00 Nasal Cannula 03/25/17 20:00 2.0 Intake and Output 03/27/17 03/27/17 03/28/17 15:00 23:00 07:00 Intake Total 1620 ml Output Total 3000 ml Balance -1380 ml Exam Constitutional: No distress ENMT: mucosa pink and moist Respiratory: No crackles/rales Cardiovascular: regular rate and rhythm, No edema Gastrointestinal: soft Neurological: nl mental status Skin: No diaphoresis Results Result Diagram: 03/27/17 0704 03/27/17 0704 Results 24 hrs Laboratory Tests Test 03/27/17 07:04 03/27/17 07:55 03/27/17 11:21 03/27/17 11:56 White Blood Count 7.0 # Red Blood Count 3.26 L Hemoglobin 8.6 L Hematocrit 26.7 L Mean Corpuscular Volume 81.9 L Mean Corpuscular Hemoglobin 26.4 L Mean Corpuscular Hemoglobin Concent 32.2 Red Cell Distribution Width 20.2 H Platelet Count 214 Mean Platelet Volume 9.3 Neutrophils % 77.0 Lymphocytes % 12.6 L Monocytes % 7.1 Eosinophils % 2.4 Basophils % 0.6 Nucleated Red Blood Cells % 0.0 Neutrophils # 5.4 Lymphocytes # 0.9 Monocytes # 0.5 Eosinophils # 0.2 Basophils # 0.0 Nucleated Red Blood Cells # 0.0 Activated Partial Thromboplast Time 70.0 H Sodium Level 136 Potassium Level 5.2 H Chloride Level 91 L Carbon Dioxide Level 27 Anion Gap 23 H Blood Urea Nitrogen 75 H Creatinine 8.50 #H Glucose Level 73 Calcium Level 8.5 Bedside Glucose 75 102 Troponin I 0.679 *H Test 03/27/17 13:46 03/27/17 17:01 03/27/17 21:25 Activated Partial Thromboplast Time 56.8 H Bedside Glucose 118 134 Medications Medications Current Medications Diagnostic Test (Pha) (Accu-Chek) 1 XX ; Start 03/25/17 at 02:00 Amlodipine Besylate (Norvasc) 5 mg BID PO Last administered on 03/27/17 21:28 ; Admin Dose 5 MG; Start 03/24/17 at 21:00 Atorvastatin Calcium (Lipitor) 40 mg HS PO Last administered on 03/27/17 21: 28; Admin Dose 40 MG; Start 03/24/17 at 21:00 Cinacalcet (Sensipar) 30 mg BID PO Last administered on 03/27/17 21:28; Admin Dose 30 MG; Start 03/24/17 at 21:00 Clopidogrel Bisulfate (plaVIX) 75 mg DAILY PO Last administered on 03/27/17 08:16; Admin Dose 75 MG; Start 03/25/17 at 09:00 Losartan Potassium (Cozaar) 25 mg DAILY PO Last administered on 03/27/17 08: 16; Admin Dose 25 MG; Start 03/25/17 at 09:00 Zolpidem Tartrate (Ambien) 5 mg QHS PRN PO INSOMNIA Last administered on 21:57; Admin Dose 5 MG; Start 03/24/17 at 20:00 Ondansetron HCl (Zofran Inj) 4 mg Q6H PRN IV NAUSEA AND/OR VOMITING; Start at 20:00 Acetaminophen (Tylenol Tab) 650 mg Q6H PRN PO PAIN AND OR ELEVATED TEMP; Start 03/24/17 at 20:00 Docusate Sodium (Colace) 100 mg DAILY PO Last administered on 03/27/17 08:16 ; Admin Dose 100 MG; Start 03/24/17 at 20:56 Al Hydrox/Mg Hydrox/Simethicone (Mag-Al Plus) 30 ml Q6H PRN PO GASTROINTESTINAL UPSET Last administered on 03/27/17 23:01; Admin Dose 30 ML; Start 03/24/17 at 21:00 Acetaminophen/ Hydrocodone Bitart ([place] (5/325)) 1 tab Q4H PRN PO PAIN Last administered on 03/26/17 01:16; Admin Dose 1 TAB; Start 03/25/17 at 03:06 Miscellaneous Information (Pending [facility] Order For Wound Care) This patient mckeon... PRN PRN XX WOUND CARE; Start 03/25/17 at 08:30 Morphine Sulfate (morphine) 2 mg Q3 PRN IV PAIN LEVEL 4-7 Last administered on 03/27/17 19:37; Admin Dose 2 MG; Start 03/25/17 at 12:00 Miscellaneous Information 1 ea NOTE XX ; Start 03/25/17 at 14:00 Glucose (Glutose) 15 gm Q15M PRN PO DECREASED GLUCOSE; Start 03/25/17 at 14:00 Glucose (Glutose) 22.5 gm Q15M PRN PO DECREASED GLUCOSE; Start 03/25/17 at 14: 00 Dextrose (D50w Syringe) 25 ml Q15M PRN IV DECREASED GLUCOSE; Start 03/25/17 at 14:00 Dextrose (D50w Syringe) 50 ml Q15M PRN IV DECREASED GLUCOSE; Start 03/25/17 at 14:00 Glucagon (Glucagen) 1 mg Q15M PRN IM DECREASED GLUCOSE; Start 03/25/17 at 14: 00 Glucose 15 gm 15 gm Q15M PRN BUCCAL DECREASED GLUCOSE; Start 03/25/17 at 14:00 Ceftriaxone Sodium (Rocephin) 50 ml @ 100 mls/hr Q24H IVPB Last administered on 03/27/17 17:37; Admin Dose 100 MLS/HR; Start 03/26/17 at 17:00 PIPER FELIX MD Mar 28, 2017 06:15
[2017-03-28 07:09] LABS: ABNORMAL IP MESSAGE 1; BASOPHILS % 0.5 % (0.0-2.0); EOSINOPHILS # 0.1 10^3/ul (0.0-0.5); EOSINOPHILS % 2.4 % (0.0-7.0); HEMATOCRIT 25.7 % (42.0-52.0); HEMOGLOBIN 8.2 g/dl (14.0-18.0); LYMPHOCYTES # 0.6 10^3/ul (0.8-2.9); LYMPHOCYTES % 9.7 % (15.0-51.0); MEAN CORPUSCULAR HEMOGLOBIN 26.3 pg (29.0-33.0); MEAN CORPUSCULAR HGB CONC 31.9 g/dl (32.0-37.0); MEAN CORPUSCULAR VOLUME 82.4 fl (82.0-101.0); MEAN PLATELET VOLUME 9.2 fl (7.4-10.4); MONOCYTE # 0.5 10^3/ul (0.3-0.9); MONOCYTES % 8.7 % (0.0-11.0); NEUTROPHIL # 4.6 10^3/ul (1.6-7.5); NEUTROPHILS % 78.4 % (39.0-77.0); PLATELET COUNT 220 10^3/UL (140-415); POSITIVE DIFF @See below; RED BLOOD COUNT 3.12 10^6/ul (4.70-6.10); RED CELL DISTRIBUTION WIDTH 19.8 % (11.5-14.5); WHITE BLOOD COUNT 5.9 10^3/ul (4.8-10.8)
[2017-03-28 07:31] LABS: CALCIUM 8.6 mg/dl (8.4-10.2); CREATININE 6.37 mg/dl (0.61-1.24); POTASSIUM 4.6 mmol/L (3.5-5.1)
[2017-03-28] MEDS: INSULIN ASPART [NOVOLOG] 3 ML PEN SC SCH ×4 (07:55→20:14)
[2017-03-28] MEDS: CLOPIDOGREL 75 MG TAB PO SCH (09:17)
[2017-03-28] MEDS: CINACALCET 30 MG TAB PO SCH ×2 (09:17→20:15)
[2017-03-28] MEDS: CALCIUM ACETATE 667 MG CAP PO SCH ×3 (09:17→17:50)
[2017-03-28] MEDS: DOCUSATE SODIUM 100 MG CAP PO SCH (09:17)
[2017-03-28] MEDS: SEVELAMER 800 MG TAB PO SCH ×3 (09:17→17:50)
[2017-03-28] MEDS: LOSARTAN 25 MG TAB PO SCH (09:18)
[2017-03-28] MEDS: AMLODIPINE 5 MG TAB PO SCH ×2 (09:18→20:16)
--- NOTE | 2017-03-28 09:39 | CONS ---
Date/Time of Note Date/Time of Note DATE: 03/28/17 TIME: 09:37 Assessment/Plan Assessment/Plan Chief Complaint/Hosp Course ID PROGRESS NOTE CURRENT ABX: DAY # => Vanco IV + Ceftriaxone 24H INTERVAL SUMMARY * Afebrile, VSS, NAD * 03/26/17 CXR: Cardiomegaly with congestive change. Moderate right and likely trace left pleural effusion. Underlying process in the right lung is not excluded. * MICRO: 03/26/17 BCx(-) PHYSICAL EXAMINATION: GENERAL: VSS, NAD HEENT: AT, NC, anicteric, moist oral membranes NECK: Trach midline, supple CHEST: Equal chest rise bilaterally, without dyspnea on observation HEART: RRR ABDOMEN: Soft, NT, ND EXT: Warm, LLEXT gangreneous changed SKIN: No rash, no diaphoresis ID ASSESSMENT: 61 y M admit with: 1. SIRS 2/2 #2 => resolving w/ABX, no fevers, WBC normalized * `7 BCx(-) 2. L foot gangrene => Severe peripheral vascular disease 3. DM w/polyneuropathies: renal, painful peripheral 4. ESRD 5. Coronary artery disease status post permanent pacemaker placement 6. CHF exacerbation 7. Possible RLL PNA 8. Anemia of chronic disease (-)MRSA ABX ALLERGY: None to ABX INVASIVES: PIV CURRENT ABX:DAY # =>Vanco IV + Ceftriaxone ID RECOMMENDATIONS/PLAN: 1. Continue current ABX over the weekend -> ID team colleague f/u next week . Problems: Consultation Date/Type/Reason Admit Date/Time Mar 24, 2017 at 14:04 Initial Consult Date Type of Consultation: ID Referring Provider: POLY THRASHER MD Exam/Review of Systems Vital Signs Vitals Vital Signs Date Time Temp Pulse Resp B/P Pulse Ox O2 Delivery O2 Flow Rate FiO2 03/28/17 08:24 71 03/28/17 07:40 98.0 18 147/68 98 03/26/17 20:00 Nasal Cannula 03/25/17 20:00 2.0 Intake and Output 03/27/17 03/27/17 03/28/17 15:00 23:00 07:00 Intake Total 1620 ml 800 ml Output Total 3000 ml 0 ml Balance -1380 ml 800 ml Results Result Diagram: 03/28/1727 03/28/17626 Results 24 hrs Laboratory Tests Test 03/27/17 11:21 03/27/17 11:56 03/27/17 13:46 03/27/17 17:01 Troponin I 0.679 *H Bedside Glucose 102 118 Activated Partial Thromboplast Time 56.8 H Test 03/27/17 21:25 03/28/17 06:27 03/28/17 09:04 Bedside Glucose 134 77 White Blood Count 5.9 Red Blood Count 3.12 L Hemoglobin 8.2 L Hematocrit 25.7 L Mean Corpuscular Volume 82.4 Mean Corpuscular Hemoglobin 26.3 L Mean Corpuscular Hemoglobin Concent 31.9 L Red Cell Distribution Width 19.8 H Platelet Count 220 Mean Platelet Volume 9.2 Neutrophils % 78.4 H Lymphocytes % 9.7 L Monocytes % 8.7 Eosinophils % 2.4 Basophils % 0.5 Nucleated Red Blood Cells % 0.0 Neutrophils # 4.6 Lymphocytes # 0.6 L Monocytes # 0.5 Eosinophils # 0.1 Basophils # 0.0 Nucleated Red Blood Cells # 0.0 Sodium Level 137 Potassium Level 4.6 Chloride Level 92 L Carbon Dioxide Level 30 Anion Gap 20 H Blood Urea Nitrogen 52 H Creatinine 6.37 #H Glucose Level 80 Calcium Level 8.6 Random Vancomycin Level 13.4 Medications Medications Current Medications Diagnostic Test (Pha) (Accu-Chek) 1 ea 02 XX ; Start 03/25/17 at 02:00 Amlodipine Besylate (Norvasc) 5 mg BID PO Last administered on 03/28/17 09:18 ; Admin Dose 5 MG; Start 03/24/17 at 21:00 Atorvastatin Calcium (Lipitor) 40 mg HS PO Last administered on 03/27/17 21: 28; Admin Dose 40 MG; Start 03/24/17 at 21:00 Cinacalcet (Sensipar) 30 mg BID PO Last administered on 03/28/17 09:17; Admin Dose 30 MG; Start 03/24/17 at 21:00 Clopidogrel Bisulfate (plaVIX) 75 mg DAILY PO Last administered on 03/28/17 09:17; Admin Dose 75 MG; Start 03/25/17 at 09:00 Losartan Potassium (Cozaar) 25 mg DAILY PO Last administered on 03/28/17 09: 18; Admin Dose 25 MG; Start 03/25/17 at 09:00 Zolpidem Tartrate (Ambien) 5 mg QHS PRN PO INSOMNIA Last administered on 21:57; Admin Dose 5 MG; Start 03/24/17 at 20:00 Ondansetron HCl (Zofran Inj) 4 mg Q6H PRN IV NAUSEA AND/OR VOMITING; Start at 20:00 Acetaminophen (Tylenol Tab) 650 mg Q6H PRN PO PAIN AND OR ELEVATED TEMP; Start 03/24/17 at 20:00 Docusate Sodium (Colace) 100 mg DAILY PO Last administered on 03/28/17 09:17 ; Admin Dose 100 MG; Start 03/24/17 at 20:56 Al Hydrox/Mg Hydrox/Simethicone (Mag-Al Plus) 30 ml Q6H PRN PO GASTROINTESTINAL UPSET Last administered on 03/27/17 23:01; Admin Dose 30 ML; Start 03/24/17 at 21:00 Acetaminophen/ Hydrocodone Bitart ([place] (5/325)) 1 tab Q4H PRN PO PAIN Last administered on 03/26/17 01:16; Admin Dose 1 TAB; Start 03/25/17 at 03:06 Miscellaneous Information (Pending [facility] Order For Wound Care) This patient mckeon... PRN PRN XX WOUND CARE; Start 03/25/17 at 08:30 Morphine Sulfate (morphine) 2 mg Q3 PRN IV PAIN LEVEL 4-7 Last administered on 03/27/17 19:37; Admin Dose 2 MG; Start 03/25/17 at 12:00 Miscellaneous Information 1 ea NOTE XX ; Start 03/25/17 at 14:00 Glucose (Glutose) 15 gm Q15M PRN PO DECREASED GLUCOSE; Start 03/25/17 at 14:00 Glucose (Glutose) 22.5 gm Q15M PRN PO DECREASED GLUCOSE; Start 03/25/17 at 14: 00 Dextrose (D50w Syringe) 25 ml Q15M PRN IV DECREASED GLUCOSE; Start 03/25/17 at 14:00 Dextrose (D50w Syringe) 50 ml Q15M PRN IV DECREASED GLUCOSE; Start 03/25/17 at 14:00 Glucagon (Glucagen) 1 mg Q15M PRN IM DECREASED GLUCOSE; Start 03/25/17 at 14: 00 Glucose 15 gm 15 gm Q15M PRN BUCCAL DECREASED GLUCOSE; Start 03/25/17 at 14:00 Ceftriaxone Sodium (Rocephin) 50 ml @ 100 mls/hr Q24H IVPB Last administered on 03/27/17t 17:37; Admin Dose 100 MLS/HR; Start 03/26/17 at 17:00 ESTEFANIA HARMON NP Mar 28, 2017 09:39
[2017-03-28] MEDS: morphine 2 MG INJ IV PRN (10:46)
--- NOTE | 2017-03-28 15:49 | PN ---
Date/Time of Note Date/Time of Note DATE: 03/28/17 TIME: 15:46 Assessment/Plan VTE Prophylaxis VTE Prophylaxis Intervention: SCD's Lines/Catheters [facility]from [facility] Saline Lock Central line still needed: Yes Assessment/Plan Chief Complaint/Hosp Course Patient complaints of left lower extremity pain, remains hemodynamically stable , afebrile. Assessment/Plan - Acute hypoxemic respiratory failure secondary to CHF exacerbation, continue to remove fluids with hemodialysis - End-stage renal disease, hemodialysis dependent. Dr. Newby is following in nephrology consultation. Continue on hemodialysis. - Left foot gangrenous wounds, continue antibiotics per ID. Dr. Tobias is following in infection disease consultation. - Systemic inflammatory response syndrome secondary to gangrene of the left foot - Hypertension. Continue home antihypertensive medication. Monitor blood pressure. - CAD - Permanent Pacemaker, Dr. Wagner is following in cardiology consultation - Legally blind status. - Anemia of chronic disease. - Severe peripheral vascular disease with severe infrapopliteal disease and pedal disease. Further recommendations based on clinical course. Plan of care discussed with Dr. French. Problems: Exam/Review of Systems Vital Signs Vitals Vital Signs Date Time Temp Pulse Resp B/P Pulse Ox O2 Delivery O2 Flow Rate FiO2 03/28/17 12:33 98.0 78 18 200/91 98 03/26/17 20:00 Nasal Cannula 03/25/17 20:00 2.0 Intake and Output 03/27/17 03/27/17 03/28/17 14:59 22:59 06:59 Intake Total 1620 ml 800 ml Output Total 3000 ml 0 ml Balance -1380 ml 800 ml Exam Constitutional: alert, oriented Eyes: other (Blind) Neck: supple Respiratory: clear to auscultation Cardiovascular: nl pulses Gastrointestinal: non-tender, soft Musculoskeletal: nl extremities to inspection Extremities: normal pulses, other (Left foot gangrenous wounds) Results Result Diagram: 03/28/1762603/28/17626 Results 24 hrs Laboratory Tests Test 03/27/17 17:01 03/27/17 21:25 03/28/17 06:27 03/28/17 09:04 Bedside Glucose 118 134 77 White Blood Count 5.9 Red Blood Count 3.12 L Hemoglobin 8.2 L Hematocrit 25.7 L Mean Corpuscular Volume 82.4 Mean Corpuscular Hemoglobin 26.3 L Mean Corpuscular Hemoglobin Concent 31.9 L Red Cell Distribution Width 19.8 H Platelet Count 220 Mean Platelet Volume 9.2 Neutrophils % 78.4 H Lymphocytes % 9.7 L Monocytes % 8.7 Eosinophils % 2.4 Basophils % 0.5 Nucleated Red Blood Cells % 0.0 Neutrophils # 4.6 Lymphocytes # 0.6 L Monocytes # 0.5 Eosinophils # 0.1 Basophils # 0.0 Nucleated Red Blood Cells # 0.0 Sodium Level 137 Potassium Level 4.6 Chloride Level 92 L Carbon Dioxide Level 30 Anion Gap 20 H Blood Urea Nitrogen 52 H Creatinine 6.37 #H Glucose Level 80 Calcium Level 8.6 Random Vancomycin Level 13.4 Test 03/28/17 12:14 Bedside Glucose 87 Medications Medications Current Medications Diagnostic Test (Pha) (Accu-Chek) 1 ea 02 XX ; Start 03/25/17 at 02:00 Amlodipine Besylate (Norvasc) 5 mg BID PO Last administered on 03/28/17 09:18 ; Admin Dose 5 MG; Start 03/24/17 at 21:00 Atorvastatin Calcium (Lipitor) 40 mg HS PO Last administered on 03/27/17 21: 28; Admin Dose 40 MG; Start 03/24/17 at 21:00 Cinacalcet (Sensipar) 30 mg BID PO Last administered on 03/28/17 09:17; Admin Dose 30 MG; Start 03/24/17 at 21:00 Clopidogrel Bisulfate (plaVIX) 75 mg DAILY PO Last administered on 03/28/17 09:17; Admin Dose 75 MG; Start 03/25/17 at 09:00 Losartan Potassium (Cozaar) 25 mg DAILY PO Last administered on 03/28/17 09: 18; Admin Dose 25 MG; Start 03/25/17 at 09:00 Zolpidem Tartrate (Ambien) 5 mg QHS PRN PO INSOMNIA Last administered on 21:57; Admin Dose 5 MG; Start 03/24/17 at 20:00 Ondansetron HCl (Zofran Inj) 4 mg Q6H PRN IV NAUSEA AND/OR VOMITING; Start at 20:00 Acetaminophen (Tylenol Tab) 650 mg Q6H PRN PO PAIN AND OR ELEVATED TEMP; Start 03/24/17 at 20:00 Docusate Sodium (Colace) 100 mg DAILY PO Last administered on 03/28/17 09:17 ; Admin Dose 100 MG; Start 03/24/17 at 20:56 Al Hydrox/Mg Hydrox/Simethicone (Mag-Al Plus) 30 ml Q6H PRN PO GASTROINTESTINAL UPSET Last administered on 03/27/17 23:01; Admin Dose 30 ML; Start 03/24/17 at 21:00 Acetaminophen/ Hydrocodone Bitart ([place] (5/325)) 1 tab Q4H PRN PO PAIN Last administered on 03/26/17 01:16; Admin Dose 1 TAB; Start 03/25/17 at 03:06 Miscellaneous Information (Pending [facility] Order For Wound Care) This patient mckeon... PRN PRN XX WOUND CARE; Start 03/25/17 at 08:30 Morphine Sulfate (morphine) 2 mg Q3 PRN IV PAIN LEVEL 4-7 Last administered on 03/28/17 10:46; Admin Dose 2 MG; Start 03/25/17 at 12:00 Miscellaneous Information 1 ea NOTE XX ; Start 03/25/17 at 14:00 Glucose (Glutose) 15 gm Q15M PRN PO DECREASED GLUCOSE; Start 03/25/17 at 14:00 Glucose (Glutose) 22.5 gm Q15M PRN PO DECREASED GLUCOSE; Start 03/25/17 at 14: 00 Dextrose (D50w Syringe) 25 ml Q15M PRN IV DECREASED GLUCOSE; Start 03/25/17 at 14:00 Dextrose (D50w Syringe) 50 ml Q15M PRN IV DECREASED GLUCOSE; Start 03/25/17 at 14:00 Glucagon (Glucagen) 1 mg Q15M PRN IM DECREASED GLUCOSE; Start 03/25/17 at 14: 00 Glucose 15 gm 15 gm Q15M PRN BUCCAL DECREASED GLUCOSE; Start 03/25/17 at 14:00 Ceftriaxone Sodium 50 ml @ 100 mls/hr Q24H IVPB Last administered on 17:37; Admin Dose 100 MLS/HR; Start 03/26/17 at 17:00 Vancomycin HCl/ Dextrose/Water (Vancocin/D5W) 150 ml @ 75 mls/hr Q96H IVPB ; Start 03/28/17 at 20:00 VIV KING 24, 2017 15:49
[2017-03-28] MEDS ORDERED: hydrALAzine 20 MG INJ IV PRN (17:00)
[2017-03-28] MEDS: CEFTRIAXONE 1 GM/50 ML (PMX) 50 ML IVPB SCH (17:51)
--- NOTE | 2017-03-28 19:50 | RADRPT ---
PROCEDURE: XR Chest. CLINICAL INDICATION: Renal failure. Removal of dialysis line. TECHNIQUE: Single frontal view of the chest. COMPARISON: 06/07/2016. FINDINGS: Previously seen left central venous dialysis catheter is removed. Cardiomegaly again seen. Increased pulmonary vascular congestion and bilateral patchy air space dise ase, with a new small right pleural effusion. Linear lucency at the lateral left lung likely represe nts a skin fold. No signs of pneumothorax are seen. The osseous structures and soft tissues are unre markable. IMPRESSION: Moderate to severe volume overload, with increased airspace disease and new small right pleural effu mirza. RPTAT: [facility] Physician Hyun Date Time Electronically viewed and signed by Physician Hyun on 03/28/2017 19:50 RS/
[2017-03-28] MEDS: VANCOMYCIN 750 MG in DEXTROSE 5% 150 ML IVPB SCH (20:14)
[2017-03-28] MEDS: ATORVASTATIN 40 MG TAB PO SCH (20:16)
[2017-03-28] MEDS: HYDROCODONE/APAP (5/325) TAB PO PRN (20:18)
[2017-03-29] VITALS (17 sets, daily range): BP systolic 124–186; BP diastolic 59–87; PULSE 72–88; RESP 16–20
[2017-03-29] MEDS: morphine 2 MG INJ IV PRN (00:27)
[2017-03-29] MEDS: ACCU-CHEK XX SCH (01:13)
[2017-03-29] MEDS: INSULIN ASPART [NOVOLOG] 3 ML PEN SC SCH ×4 (07:55→21:00)
[2017-03-29] MEDS: CLOPIDOGREL 75 MG TAB PO SCH (08:16)
[2017-03-29] MEDS: CINACALCET 30 MG TAB PO SCH ×2 (08:16→21:23)
[2017-03-29] MEDS: DOCUSATE SODIUM 100 MG CAP PO SCH (08:16)
[2017-03-29] MEDS: CALCIUM ACETATE 667 MG CAP PO SCH ×3 (08:16→17:24)
[2017-03-29] MEDS: SEVELAMER 800 MG TAB PO SCH ×3 (08:16→17:23)
[2017-03-29] MEDS: LOSARTAN 25 MG TAB PO SCH (08:17)
[2017-03-29] MEDS: AMLODIPINE 5 MG TAB PO SCH ×2 (08:18→21:24)
[2017-03-29 08:47] LABS: CALCIUM 8.6 mg/dl (8.4-10.2); CREATININE 8.28 mg/dl (0.61-1.24)
[2017-03-29 09:59] LABS: ABNORMAL IP MESSAGE 1; BASOPHILS % 0.5 % (0.0-2.0); EOSINOPHILS # 0.1 10^3/ul (0.0-0.5); HEMATOCRIT 26.7 % (42.0-52.0); HEMOGLOBIN 8.6 g/dl (14.0-18.0); LYMPHOCYTES # 0.5 10^3/ul (0.8-2.9); LYMPHOCYTES % 7.8 % (15.0-51.0); MEAN CORPUSCULAR HEMOGLOBIN 26.3 pg (29.0-33.0); MEAN CORPUSCULAR HGB CONC 32.2 g/dl (32.0-37.0); MEAN CORPUSCULAR VOLUME 81.7 fl (82.0-101.0); MEAN PLATELET VOLUME 9.5 fl (7.4-10.4); MONOCYTE # 0.5 10^3/ul (0.3-0.9); MONOCYTES % 8.3 % (0.0-11.0); NEUTROPHIL # 4.9 10^3/ul (1.6-7.5); NEUTROPHILS % 81.1 % (39.0-77.0); PLATELET COUNT 251 10^3/UL (140-415); POSITIVE DIFF @See below; RED BLOOD COUNT 3.27 10^6/ul (4.70-6.10); RED CELL DISTRIBUTION WIDTH 19.7 % (11.5-14.5)
--- NOTE | 2017-03-29 11:25 | PN ---
Date/Time of Note Date/Time of Note DATE: 03/29/17 TIME: 11:24 Assessment/Plan VTE Prophylaxis VTE Prophylaxis Intervention: other Lines/Catheters [facility] Saline Lock Urinary Cath still in place: No Assessment/Plan Chief Complaint/Hosp Course - Acute hypoxemic respiratory failure secondary to CHF exacerbation, continue to remove fluids with hemodialysis - End-stage renal disease, hemodialysis dependent. Dr. Newby is following in nephrology consultation. Continue on hemodialysis. - Left foot gangrenous wounds, continue antibiotics per ID. Dr. Tobias is following in infection disease consultation. - Systemic inflammatory response syndrome secondary to gangrene of the left foot - Hypertension. Continue home antihypertensive medication. Monitor blood pressure. - CAD - Permanent Pacemaker, Dr. Wagner is following in cardiology consultation - Legally blind status. - Anemia of chronic disease. - Severe peripheral vascular disease with severe infrapopliteal disease and pedal disease. Problems: Subjective 24 Hr Interval Summary Free Text/Dictation Patient denies any chest pain or shortness of breath Exam/Review of Systems Vital Signs Vitals Vital Signs Date Time Temp Pulse Resp B/P Pulse Ox O2 Delivery O2 Flow Rate FiO2 03/29/17 08:40 97.6 75 17 186/77 94 03/28/17 20:00 Nasal Cannula 03/28/17 18:46 3.0 Intake and Output 03/28/17 03/28/17 03/29/17 15:00 23:00 07:00 Intake Total 1850 ml 400 ml Balance 1850 ml 400 ml Exam Constitutional: well developed Head: atraumatic, normocephalic Neck: supple Respiratory: clear to auscultation Cardiovascular: regular rate and rhythm Gastrointestinal: non-tender, soft Extremities: normal pulses Results Result Diagram: 03/29/17 0723 03/29/17 0723 Results 24 hrs Laboratory Tests Test 03/28/17 12:14 03/28/17 17:49 03/28/17 20:12 03/29/17 07:23 Bedside Glucose 87 155 95 White Blood Count 6.0 Red Blood Count 3.27 L Hemoglobin 8.6 L Hematocrit 26.7 L Mean Corpuscular Volume 81.7 L Mean Corpuscular Hemoglobin 26.3 L Mean Corpuscular Hemoglobin Concent 32.2 Red Cell Distribution Width 19.7 H Platelet Count 251 Mean Platelet Volume 9.5 Neutrophils % 81.1 H Lymphocytes % 7.8 L Monocytes % 8.3 Eosinophils % 2.0 Basophils % 0.5 Nucleated Red Blood Cells % 0.0 Neutrophils # 4.9 Lymphocytes # 0.5 L Monocytes # 0.5 Eosinophils # 0.1 Basophils # 0.0 Nucleated Red Blood Cells # 0.0 Sodium Level 135 Potassium Level 5.0 Chloride Level 91 L Carbon Dioxide Level 26 Anion Gap 23 H Blood Urea Nitrogen 69 H Creatinine 8.28 H Glucose Level 81 Calcium Level 8.6 Test 03/29/17 08:13 Bedside Glucose 86 Medications Medications Current Medications Diagnostic Test (Pha) (Accu-Chek) 1 ea 02 XX ; Start 03/25/17 at 02:00 Amlodipine Besylate (Norvasc) 5 mg BID PO Last administered on 03/28/17 20:16 ; Admin Dose 5 MG; Start 03/24/17 at 21:00 Atorvastatin Calcium (Lipitor) 40 mg HS PO Last administered on 03/28/17 20: 16; Admin Dose 40 MG; Start 03/24/17 at 21:00 Cinacalcet (Sensipar) 30 mg BID PO Last administered on 03/29/17 08:16; Admin Dose 30 MG; Start 03/24/17 at 21:00 Clopidogrel Bisulfate (plaVIX) 75 mg DAILY PO Last administered on 03/29/17 08:16; Admin Dose 75 MG; Start 03/25/17 at 09:00 Losartan Potassium (Cozaar) 25 mg DAILY PO Last administered on 03/28/17 09: 18; Admin Dose 25 MG; Start 03/25/17 at 09:00 Zolpidem Tartrate (Ambien) 5 mg QHS PRN PO INSOMNIA Last administered on 21:57; Admin Dose 5 MG; Start 03/24/17 at 20:00 Ondansetron HCl (Zofran Inj) 4 mg Q6H PRN IV NAUSEA AND/OR VOMITING; Start at 20:00 Acetaminophen (Tylenol Tab) 650 mg Q6H PRN PO PAIN AND OR ELEVATED TEMP; Start 03/24/17 at 20:00 Docusate Sodium (Colace) 100 mg DAILY PO Last administered on 03/29/17 08:16 ; Admin Dose 100 MG; Start 11/20/17 at 20:56 Al Hydrox/Mg Hydrox/Simethicone (Mag-Al Plus) 30 ml Q6H PRN PO GASTROINTESTINAL UPSET Last administered on 03/27/17 23:01; Admin Dose 30 ML; Start 03/24/17 at 21:00 Acetaminophen/ Hydrocodone Bitart ([place] (5/325)) 1 tab Q4H PRN PO PAIN Last administered on 03/28/17 20:18; Admin Dose 1 TAB; Start 03/25/17 at 03:06 Miscellaneous Information (Pending [facility] Order For Wound Care) This patient mckeon... PRN PRN XX WOUND CARE; Start 03/25/17 at 08:30 Morphine Sulfate (morphine) 2 mg Q3 PRN IV PAIN LEVEL 4-7 Last administered on 03/29/17 00:27; Admin Dose 2 MG; Start 03/25/17 at 12:00 Miscellaneous Information 1 ea NOTE XX ; Start 03/25/17 at 14:00 Glucose (Glutose) 15 gm Q15M PRN PO DECREASED GLUCOSE; Start 03/25/17 at 14:00 Glucose (Glutose) 22.5 gm Q15M PRN PO DECREASED GLUCOSE; Start 03/25/17 at 14: 00 Dextrose (D50w Syringe) 25 ml Q15M PRN IV DECREASED GLUCOSE; Start 03/25/17 at 14:00 Dextrose (D50w Syringe) 50 ml Q15M PRN IV DECREASED GLUCOSE; Start 03/25/17 at 14:00 Glucagon (Glucagen) 1 mg Q15M PRN IM DECREASED GLUCOSE; Start 03/25/17 at 14: 00 Glucose 15 gm 15 gm Q15M PRN BUCCAL DECREASED GLUCOSE; Start 03/25/17 at 14:00 Ceftriaxone Sodium 50 ml @ 100 mls/hr Q24H IVPB Last administered on 17:51; Admin Dose 100 MLS/HR; Start 03/26/17 at 17:00 Vancomycin HCl/ Dextrose/Water (Vancocin/D5W) 150 ml @ 75 mls/hr Q96H IVPB Last administered on 03/28/17 20:14; Admin Dose 75 MLS/HR; Start 03/28/17 at 20:00 Hydralazine HCl (Apresoline) 25 mg TID PO Last administered on 03/28/17 20:15 ; Admin Dose 25 MG; Start 03/28/17 at 21:00 Hydralazine HCl (Apresoline) 10 mg Q4H PRN IV ELEVATED BLOOD PRESSURE Last administered on 03/28/17 17:51; Admin Dose 10 MG; Start 03/28/17 at 17:00 FELISA TRIMBLE Mar 29, 2017 11:25
[2017-03-29] MEDS: HYDROCODONE/APAP (5/325) TAB PO PRN ×2 (12:12→22:39)
--- NOTE | 2017-03-29 16:26 | CONS ---
Date/Time of Note Date/Time of Note DATE: 03/29/17 TIME: 16:19 Assessment/Plan Assessment/Plan Chief Complaint/Hosp Course ID PROGRESS NOTE CURRENT ABX: DAY # => Vanco IV + Ceftriaxone 24H INTERVAL SUMMARY * More dyspnea today -- increase pulm edema high abdalla's position to facilitate breathing w/supplemental O2 * Fluid management per hemodialysis * 03/28/17 CXR: IMPRESSION: Moderate to severe volume overload, with increased airspace disease and new small right pleural effusion. * MICRO: 03/26/17 BCx(-) * 03/29/17 0723 03/29/17 0723 PHYSICAL EXAMINATION: GENERAL: VSS, increased work of breathing today HEENT: AT, NC, anicteric, moist oral membranes NECK: Trach midline, supple CHEST: Equal chest rise bilaterally-> crackles HEART: RRR ABDOMEN: Soft, NT, ND EXT: Warm, LLEXT gangrenous wound SKIN: No rash, no diaphoresis ID ASSESSMENT: 61 y M admit with: 1. SIRS 2/2 #2 => resolving w/ABX, no fevers, WBC normalized * `7 BCx(-) 2. L foot gangrene => Severe peripheral vascular disease 3. DM w/polyneuropathies: renal, painful peripheral, retinal * Legally blind OU 4. ESRD-> HD 5. Hypoxic respiratory insufficiency due to acute CHF exacerbation 6. Heart Failure, cardiomegaly w/hx of CAD-> s/p PCI-stent, status post permanent pacemaker placement 7. Possible RLL PNA 8. Anemia of chronic disease (-)MRSA ABX ALLERGY: None to ABX INVASIVES: PIV CURRENT ABX:DAY # =>Vanco IV + Ceftriaxone ID RECOMMENDATIONS/PLAN: 1. Continue current ABX over the weekend -> ID team colleague f/u next week . Problems: Consultation Date/Type/Reason Admit Date/Time Mar 24, 2017 at 14:04 Type of Consultation: ID Referring Provider: POLY THRASHER MD Exam/Review of Systems Vital Signs Vitals Vital Signs Date Time Temp Pulse Resp B/P Pulse Ox O2 Delivery O2 Flow Rate FiO2 03/29/17 15:29 97.9 69 18 133/87 97 03/28/17 20:00 Nasal Cannula 03/28/17 18:46 3.0 Intake and Output 03/28/17 03/28/17 03/29/17 14:59 22:59 06:59 Intake Total 1850 ml 400 ml Balance 1850 ml 400 ml Results Result Diagram: 03/29/17 0723 03/29/17 0723 Results 24 hrs Laboratory Tests Test 03/28/17 17:49 03/28/17 20:12 03/29/17 07:23 03/29/17 08:13 Bedside Glucose 155 95 86 White Blood Count 6.0 Red Blood Count 3.27 L Hemoglobin 8.6 L Hematocrit 26.7 L Mean Corpuscular Volume 81.7 L Mean Corpuscular Hemoglobin 26.3 L Mean Corpuscular Hemoglobin Concent 32.2 Red Cell Distribution Width 19.7 H Platelet Count 251 Mean Platelet Volume 9.5 Neutrophils % 81.1 H Lymphocytes % 7.8 L Monocytes % 8.3 Eosinophils % 2.0 Basophils % 0.5 Nucleated Red Blood Cells % 0.0 Neutrophils # 4.9 Lymphocytes # 0.5 L Monocytes # 0.5 Eosinophils # 0.1 Basophils # 0.0 Nucleated Red Blood Cells # 0.0 Sodium Level 135 Potassium Level 5.0 Chloride Level 91 L Carbon Dioxide Level 26 Anion Gap 23 H Blood Urea Nitrogen 69 H Creatinine 8.28 H Glucose Level 81 Calcium Level 8.6 Test 03/29/17 12:10 Bedside Glucose 137 Medications Medications Current Medications Diagnostic Test (Pha) (Accu-Chek) 1 ea 02 XX ; Start 03/25/17 at 02:00 Amlodipine Besylate (Norvasc) 5 mg BID PO Last administered on 03/28/17 20:16 ; Admin Dose 5 MG; Start 03/24/17 at 21:00 Atorvastatin Calcium (Lipitor) 40 mg HS PO Last administered on 03/28/17 20: 16; Admin Dose 40 MG; Start 03/24/17 at 21:00 Cinacalcet (Sensipar) 30 mg BID PO Last administered on 03/29/17 08:16; Admin Dose 30 MG; Start 03/24/17 at 21:00 Clopidogrel Bisulfate (plaVIX) 75 mg DAILY PO Last administered on 03/29/17 08:16; Admin Dose 75 MG; Start 03/25/17 at 09:00 Losartan Potassium (Cozaar) 25 mg DAILY PO Last administered on 03/28/17 09: 18; Admin Dose 25 MG; Start 03/25/17 at 09:00 Zolpidem Tartrate (Ambien) 5 mg QHS PRN PO INSOMNIA Last administered on 21:57; Admin Dose 5 MG; Start 03/24/17 at 20:00 Ondansetron HCl (Zofran Inj) 4 mg Q6H PRN IV NAUSEA AND/OR VOMITING; Start at 20:00 Acetaminophen (Tylenol Tab) 650 mg Q6H PRN PO PAIN AND OR ELEVATED TEMP; Start 03/24/17 at 20:00 Docusate Sodium (Colace) 100 mg DAILY PO Last administered on 03/29/17 08:16 ; Admin Dose 100 MG; Start 03/24/17 at 20:56 Al Hydrox/Mg Hydrox/Simethicone (Mag-Al Plus) 30 ml Q6H PRN PO GASTROINTESTINAL UPSET Last administered on 03/27/17 23:01; Admin Dose 30 ML; Start 03/24/17 at 21:00 Acetaminophen/ Hydrocodone Bitart ([place] (5/325)) 1 tab Q4H PRN PO PAIN Last administered on 03/29/17 12:12; Admin Dose 1 TAB; Start 03/25/17 at 03:06 Miscellaneous Information (Pending [facility] Order For Wound Care) This patient mckeon... PRN PRN XX WOUND CARE; Start 03/25/17 at 08:30 Morphine Sulfate (morphine) 2 mg Q3 PRN IV PAIN LEVEL 4-7 Last administered on 03/29/17 00:27; Admin Dose 2 MG; Start 03/25/17 at 12:00 Miscellaneous Information 1 ea NOTE XX ; Start 03/25/17 at 14:00 Glucose (Glutose) 15 gm Q15M PRN PO DECREASED GLUCOSE; Start 03/25/17 at 14:00 Glucose (Glutose) 22.5 gm Q15M PRN PO DECREASED GLUCOSE; Start 03/25/17 at 14: 00 Dextrose (D50w Syringe) 25 ml Q15M PRN IV DECREASED GLUCOSE; Start 03/25/17 at 14:00 Dextrose (D50w Syringe) 50 ml Q15M PRN IV DECREASED GLUCOSE; Start 03/25/17 at 14:00 Glucagon (Glucagen) 1 mg Q15M PRN IM DECREASED GLUCOSE; Start 03/25/17 at 14: 00 Glucose 15 gm 15 gm Q15M PRN BUCCAL DECREASED GLUCOSE; Start 03/25/17 at 14:00 Ceftriaxone Sodium 50 ml @ 100 mls/hr Q24H IVPB Last administered on 17:51; Admin Dose 100 MLS/HR; Start 03/26/17 at 17:00 Vancomycin HCl/ Dextrose/Water (Vancocin/D5W) 150 ml @ 75 mls/hr Q96H IVPB Last administered on 03/28/17 20:14; Admin Dose 75 MLS/HR; Start 03/28/17 at 20:00 Hydralazine HCl (Apresoline) 25 mg TID PO Last administered on 03/29/17 13:14 ; Admin Dose 25 MG; Start 03/28/17 at 21:00 Hydralazine HCl (Apresoline) 10 mg Q4H PRN IV ELEVATED BLOOD PRESSURE Last administered on 03/28/17 17:51; Admin Dose 10 MG; Start 03/28/17 at 17:00 ESTEFANIA HARMON NP Mar 29, 2017 16:26
[2017-03-29] MEDS: CEFTRIAXONE 1 GM/50 ML (PMX) 50 ML IVPB SCH (17:24)
[2017-03-29] MEDS: ATORVASTATIN 40 MG TAB PO SCH (21:23)
[2017-03-30] VITALS (12 sets, daily range): BP systolic 148–174; BP diastolic 67–81; PULSE 72–77; RESP 16–18
[2017-03-30] MEDS: ZOLPIDEM 5 MG TAB PO PRN (01:33)
[2017-03-30] MEDS: ACCU-CHEK XX SCH (02:00)
[2017-03-30] MEDS: INSULIN ASPART [NOVOLOG] 3 ML PEN SC SCH ×4 (07:55→20:18)
[2017-03-30] MEDS: AMLODIPINE 5 MG TAB PO SCH ×2 (08:57→20:18)
[2017-03-30] MEDS: LOSARTAN 25 MG TAB PO SCH (08:57)
[2017-03-30] MEDS: HYDROCODONE/APAP (5/325) TAB PO PRN ×2 (08:57→21:16)
[2017-03-30] MEDS: CLOPIDOGREL 75 MG TAB PO SCH (08:57)
[2017-03-30] MEDS: SEVELAMER 800 MG TAB PO SCH ×3 (08:57→17:39)
[2017-03-30] MEDS: CINACALCET 30 MG TAB PO SCH ×2 (08:57→20:17)
[2017-03-30] MEDS: CALCIUM ACETATE 667 MG CAP PO SCH ×3 (08:57→17:39)
[2017-03-30] MEDS: DOCUSATE SODIUM 100 MG CAP PO SCH (08:57)
--- NOTE | 2017-03-30 11:14 | PN ---
Date/Time of Note Date/Time of Note DATE: 03/30/17 TIME: 11:14 Assessment/Plan VTE Prophylaxis VTE Prophylaxis Intervention: other Lines/Catheters IV [facility]ter Type [facility]from [facility]): [facility] Urinary Cath still in place: No Assessment/Plan Chief Complaint/Hosp Course - Acute hypoxemic respiratory failure secondary to CHF exacerbation, continue to remove fluids with hemodialysis - End-stage renal disease, hemodialysis dependent. Dr. Newby is following in nephrology consultation. Continue on hemodialysis. - Left foot gangrenous wounds, continue antibiotics per ID. Dr. Tobias is following in infection disease consultation. - Systemic inflammatory response syndrome secondary to gangrene of the left foot - Hypertension. Continue home antihypertensive medication. Monitor blood pressure. - CAD - Permanent Pacemaker, Dr. Wagner is following in cardiology consultation - Legally blind status. - Anemia of chronic disease. - Severe peripheral vascular disease with severe infrapopliteal disease and pedal disease. Problems: Subjective 24 Hr Interval Summary Free Text/Dictation Patient has no complaints Exam/Review of Systems Vital Signs Vitals Vital Signs Date Time Temp Pulse Resp B/P Pulse Ox O2 Delivery O2 Flow Rate FiO2 03/30/17 08:13 77 03/30/17 07:57 98.0 18 148/67 98 03/30/17 07:35 Nasal Cannula 2.0 Intake and Output 03/29/17 03/29/17 03/30/17 14:59 22:59 06:59 Intake Total 900 ml 700 ml Balance 900 ml 700 ml Exam Constitutional: well developed Head: atraumatic, normocephalic Neck: supple Respiratory: diminished breath sounds Cardiovascular: regular rate and rhythm Gastrointestinal: non-tender, soft Extremities: normal pulses Results Result Diagram: 03/29/1723 03/29/17 0723 Results 24 hrs Laboratory Tests Test 03/29/17 12:10 03/29/17 17:23 03/29/17 21:21 03/30/17 08:02 Bedside Glucose 137 109 122 73 Medications Medications Current Medications Diagnostic Test (Pha) (Accu-Chek) XX ; Start 03/25/17 at 02:00 Amlodipine Besylate (Norvasc) 5 mg BID PO Last administered on 03/30/17t 08:57 ; Admin Dose 5 MG; Start 03/24/17 at 21:00 Atorvastatin Calcium (Lipitor) 40 mg HS PO Last administered on 03/29/17 21: 23; Admin Dose 40 MG; Start 03/24/17 at 21:00 Cinacalcet (Sensipar) 30 mg BID PO Last administered on 03/30/17 08:57; Admin Dose 30 MG; Start 03/24/17 at 21:00 Clopidogrel Bisulfate (plaVIX) 75 mg DAILY PO Last administered on 03/30/17 08:57; Admin Dose 75 MG; Start 03/25/17 at 09:00 Losartan Potassium (Cozaar) 25 mg DAILY PO Last administered on 03/30/17 08: 57; Admin Dose 25 MG; Start 03/25/17 at 09:00 Zolpidem Tartrate (Ambien) 5 mg QHS PRN PO INSOMNIA Last administered on 01:33; Admin Dose 5 MG; Start 03/24/17 at 20:00 Ondansetron HCl (Zofran Inj) 4 mg Q6H PRN IV NAUSEA AND/OR VOMITING; Start at 20:00 Acetaminophen (Tylenol Tab) 650 mg Q6H PRN PO PAIN AND OR ELEVATED TEMP; Start 03/24/17 at 20:00 Docusate Sodium (Colace) 100 mg DAILY PO Last administered on 03/30/17 08:57 ; Admin Dose 100 MG; Start 03/24/17 at 20:56 Al Hydrox/Mg Hydrox/Simethicone (Mag-Al Plus) 30 ml Q6H PRN PO GASTROINTESTINAL UPSET Last administered on 03/27/17 23:01; Admin Dose 30 ML; Start 03/24/17 at 21:00 Acetaminophen/ Hydrocodone Bitart ([place] (5/325)) 1 tab Q4H PRN PO PAIN Last administered on 03/30/17 08:57; Admin Dose 1 TAB; Start 03/25/17 at 03:06 Miscellaneous Information (Pending [facility] Order For Wound Care) This patient mckeon... PRN PRN XX WOUND CARE; Start 03/25/17 at 08:30 Morphine Sulfate (morphine) 2 mg Q3 PRN IV PAIN LEVEL 4-7 Last administered on 03/29/17 00:27; Admin Dose 2 MG; Start 03/25/17 at 12:00 Miscellaneous Information 1 ea NOTE XX ; Start 03/25/17 at 14:00 Glucose (Glutose) 15 gm Q15M PRN PO DECREASED GLUCOSE; Start 03/25/17 at 14:00 Glucose (Glutose) 22.5 gm Q15M PRN PO DECREASED GLUCOSE; Start 03/25/17 at 14: 00 Dextrose (D50w Syringe) 25 ml Q15M PRN IV DECREASED GLUCOSE; Start 03/25/17 at 14:00 Dextrose (D50w Syringe) 50 ml Q15M PRN IV DECREASED GLUCOSE; Start 03/25/17 at 14:00 Glucagon (Glucagen) 1 mg Q15M PRN IM DECREASED GLUCOSE; Start 03/25/17 at 14: 00 Glucose 15 gm 15 gm Q15M PRN BUCCAL DECREASED GLUCOSE; Start 03/25/17 at 14:00 Ceftriaxone Sodium 50 ml @ 100 mls/hr Q24H IVPB Last administered on 17:24; Admin Dose 100 MLS/HR; Start 03/26/17 at 17:00 Vancomycin HCl/ Dextrose/Water (Vancocin/D5W) 150 ml @ 75 mls/hr Q96H IVPB Last administered on 03/28/17 20:14; Admin Dose 75 MLS/HR; Start 03/28/17 at 20:00 Hydralazine HCl (Apresoline) 25 mg TID PO Last administered on 03/30/17 08:58 ; Admin Dose 25 MG; Start 03/28/17 at 21:00 Hydralazine HCl (Apresoline) 10 mg Q4H PRN IV ELEVATED BLOOD PRESSURE Last administered on 03/28/17 17:51; Admin Dose 10 MG; Start 03/28/17 at 17:00 FELISA TRIMBLE Mar 30, 2017 11:14
--- NOTE | 2017-03-30 15:18 | CONS ---
Date/Time of Note Date/Time of Note DATE: 03/30/17 TIME: 15:14 Assessment/Plan Assessment/Plan Chief Complaint/Hosp Course ID PROGRESS NOTE CURRENT ABX: DAY # => Vanco IV + Ceftriaxone 24H INTERVAL SUMMARY * Awake, alert, -- breathing better today OFF supplemental O2 after HD removed 3L fluid yesterday w CXR showing severe volume overload * No fevers, WBC remains stable, normalized * MICRO: 03/26/17 BCx(-) PHYSICAL EXAMINATION: GENERAL: VSS,breathing much improved today HEENT: AT, NC, anicteric, moist oral membranes NECK: Trach midline, supple CHEST: Equal chest rise bilaterally-> crackles HEART: RRR ABDOMEN: Soft, NT, ND EXT: Warm, LLEXT gangrenous wound SKIN: No rash, no diaphoresis ID ASSESSMENT: 61 y M admit with: 1. SIRS 2/2 #2 => resolving w/ABX, no fevers, WBC normalized * `7 BCx(-) 2. L foot gangrene => Severe peripheral vascular disease 3. DM w/polyneuropathies: renal, painful peripheral, retinal * Legally blind OU 4. ESRD-> HD 5. Hypoxic respiratory insufficiency due to acute CHF exacerbation 6. Heart Failure, cardiomegaly w/hx of CAD-> s/p PCI-stent, status post permanent pacemaker placement 7. Possible RLL PNA 8. Anemia of chronic disease (-)MRSA ABX ALLERGY: None to ABX INVASIVES: PIV CURRENT ABX:DAY # =>Vanco IV + Ceftriaxone ID RECOMMENDATIONS/PLAN: 1. Remains on IV ABX for gangrenous, diabetic, ischemic limb 2. Continue current ABX over the weekend -> ID team colleague f/u next week on final ABX recs 3. Follow vascular/APC recs . Problems: Consultation Date/Type/Reason Admit Date/Time Mar 24, 2017 at 14:04 Type of Consultation: ID Referring Provider: POLY THRASHER MD Exam/Review of Systems Vital Signs Vitals Vital Signs Date Time Temp Pulse Resp B/P Pulse Ox O2 Delivery O2 Flow Rate FiO2 03/30/17 12:25 72 03/30/17 12:03 98.0 18 155/67 98 03/30/17 07:35 Nasal Cannula 2.0 Intake and Output 03/29/17 03/29/17 03/30/17 15:00 23:00 07:00 Intake Total 900 ml 700 ml Balance 900 ml 700 ml Results Result Diagram: 03/29/1772203/29/17722 Results 24 hrs Laboratory Tests Test 03/29/17 17:23 03/29/17 21:21 03/30/17 08:02 03/30/17 11:53 Bedside Glucose 109 122 73 98 Medications Medications Current Medications Diagnostic Test (Pha) (Accu-Chek) 1 XX ; Start 03/25/17 at 02:00 Amlodipine Besylate (Norvasc) 5 mg BID PO Last administered on 03/30/17 08:57 ; Admin Dose 5 MG; Start 03/24/17 at 21:00 Atorvastatin Calcium (Lipitor) 40 mg HS PO Last administered on 03/29/17 21: 23; Admin Dose 40 MG; Start 03/24/17 at 21:00 Cinacalcet (Sensipar) 30 mg BID PO Last administered on 03/30/17 08:57; Admin Dose 30 MG; Start 03/24/17 at 21:00 Clopidogrel Bisulfate (plaVIX) 75 mg DAILY PO Last administered on 03/30/17 08:57; Admin Dose 75 MG; Start 03/25/17 at 09:00 Losartan Potassium (Cozaar) 25 mg DAILY PO Last administered on 03/30/17 08: 57; Admin Dose 25 MG; Start 03/25/17 at 09:00 Zolpidem Tartrate (Ambien) 5 mg QHS PRN PO INSOMNIA Last administered on 01:33; Admin Dose 5 MG; Start 03/24/17 at 20:00 Ondansetron HCl (Zofran Inj) 4 mg Q6H PRN IV NAUSEA AND/OR VOMITING; Start at 20:00 Acetaminophen (Tylenol Tab) 650 mg Q6H PRN PO PAIN AND OR ELEVATED TEMP; Start 03/24/17 at 20:00 Docusate Sodium (Colace) 100 mg DAILY PO Last administered on 03/30/17 08:57 ; Admin Dose 100 MG; Start 03/24/17 at 20:56 Al Hydrox/Mg Hydrox/Simethicone (Mag-Al Plus) 30 ml Q6H PRN PO GASTROINTESTINAL UPSET Last administered on 03/27/17 23:01; Admin Dose 30 ML; Start 03/24/17 at 21:00 Acetaminophen/ Hydrocodone Bitart ([place] (5/325)) 1 tab Q4H PRN PO PAIN Last administered on 03/30/17 08:57; Admin Dose 1 TAB; Start 03/25/17 at 03:06 Miscellaneous Information ([facility]) This patient mckeon... PRN PRN XX WOUND CARE; Start 03/25/17 at 08:30 Morphine Sulfate (morphine) 2 mg Q3 PRN IV PAIN LEVEL 4-7 Last administered on 03/29/17 00:27; Admin Dose 2 MG; Start 03/25/17 at 12:00 Miscellaneous Information 1 ea NOTE XX ; Start 03/25/17 at 14:00 Glucose (Glutose) 15 gm Q15M PRN PO DECREASED GLUCOSE; Start 03/25/17 at 14:00 Glucose (Glutose) 22.5 gm Q15M PRN PO DECREASED GLUCOSE; Start 03/25/17 at 14: 00 Dextrose (D50w Syringe) 25 ml Q15M PRN IV DECREASED GLUCOSE; Start 03/25/17 at 14:00 Dextrose (D50w Syringe) 50 ml Q15M PRN IV DECREASED GLUCOSE; Start 03/25/17 at 14:00 Glucagon (Glucagen) 1 mg Q15M PRN IM DECREASED GLUCOSE; Start 03/25/17 at 14: 00 Glucose 15 gm 15 gm Q15M PRN BUCCAL DECREASED GLUCOSE; Start 03/25/17 at 14:00 Ceftriaxone Sodium 50 ml @ 100 mls/hr Q24H IVPB Last administered on 17:24; Admin Dose 100 MLS/HR; Start 03/26/17 at 17:00 Vancomycin HCl/ Dextrose/Water (Vancocin/D5W) 150 ml @ 75 mls/hr Q96H IVPB Last administered on 03/28/17 20:14; Admin Dose 75 MLS/HR; Start 03/28/17 at 20:00 Hydralazine HCl (Apresoline) 25 mg TID PO Last administered on 03/30/17 12:39 ; Admin Dose 25 MG; Start 03/28/17 at 21:00 Hydralazine HCl (Apresoline) 10 mg Q4H PRN IV ELEVATED BLOOD PRESSURE Last administered on 03/28/17t 17:51; Admin Dose 10 MG; Start 03/28/17 at 17:00 ESTEFANIA HARMON NP Mar 30, 2017 15:18
--- NOTE | 2017-03-30 15:32 | CONS ---
Date/Time of Note Date/Time of Note DATE: 03/30/17 TIME: 15:31 Assessment/Plan Assessment/Plan Additional Assessment/Plan 61 yo Male with 1) Chest pain, CAD, R/o ACS possible NSTEMI 2) Uncontrolled HTN 3) ESRD on HD 4) Dm With Renal Complication, ESRD 5) Anemia, Chronic, CKD 6) MBD, CKD Cont Anti -HTN Rx Will cont to follow closely next HD will be ordered for Tomorrow Resume MWF schedule at this time. Consultation Date/Type/Reason Admit Date/Time Mar 24, 2017 at 14:04 Type of Consultation: Renal Referring Provider: POLY THRASHER MD 24 HR Interval Summary Constitutional: No requiring O2 Exam/Review of Systems Vital Signs Vitals Vital Signs Date Time Temp Pulse Resp B/P Pulse Ox O2 Delivery O2 Flow Rate FiO2 03/30/17 12:25 72 03/30/17 12:03 98.0 18 155/67 98 03/30/17 07:35 Nasal Cannula 2.0 Intake and Output 03/29/17 03/29/17 03/30/17 15:00 23:00 07:00 Intake Total 900 ml 700 ml Balance 900 ml 700 ml Exam Constitutional: alert, No distress ENMT: mucosa pink and moist Neck: No jvd Respiratory: clear to auscultation Cardiovascular: regular rate and rhythm, No edema Gastrointestinal: non-tender, soft Neurological: nl mental status, No lethargic Results Result Diagram: 03/29/17 0723 03/29/17 0723 Results 24 hrs Laboratory Tests Test 03/29/17 17:23 03/29/17 21:21 03/30/17 08:02 03/30/17 11:53 Bedside Glucose 109 122 73 98 Medications Medications Current Medications Diagnostic Test (Pha) (Accu-Chek) 1 ea 02 XX ; Start 03/25/17 at 02:00 Amlodipine Besylate (Norvasc) 5 mg BID PO Last administered on 03/30/17 08:57 ; Admin Dose 5 MG; Start 03/24/17 at 21:00 Atorvastatin Calcium (Lipitor) 40 mg HS PO Last administered on 03/29/17 21: 23; Admin Dose 40 MG; Start 03/24/17 at 21:00 Cinacalcet (Sensipar) 30 mg BID PO Last administered on 03/30/17 08:57; Admin Dose 30 MG; Start 03/24/17 at 21:00 Clopidogrel Bisulfate (plaVIX) 75 mg DAILY PO Last administered on 03/30/17 08:57; Admin Dose 75 MG; Start 03/25/17 at 09:00 Losartan Potassium (Cozaar) 25 mg DAILY PO Last administered on 03/30/17 08: 57; Admin Dose 25 MG; Start 03/25/17 at 09:00 Zolpidem Tartrate (Ambien) 5 mg QHS PRN PO INSOMNIA Last administered on 01:33; Admin Dose 5 MG; Start 03/24/17 at 20:00 Ondansetron HCl (Zofran Inj) 4 mg Q6H PRN IV NAUSEA AND/OR VOMITING; Start at 20:00 Acetaminophen (Tylenol Tab) 650 mg Q6H PRN PO PAIN AND OR ELEVATED TEMP; Start 03/24/17 at 20:00 Docusate Sodium (Colace) 100 mg DAILY PO Last administered on 03/30/17 08:57 ; Admin Dose 100 MG; Start 03/24/17 at 20:56 Al Hydrox/Mg Hydrox/Simethicone (Mag-Al Plus) 30 ml Q6H PRN PO GASTROINTESTINAL UPSET Last administered on 03/27/17 23:01; Admin Dose 30 ML; Start 03/24/17 at 21:00 Acetaminophen/ Hydrocodone Bitart ([employer] (5/325)) 1 tab Q4H PRN PO PAIN Last administered on 03/30/17 08:57; Admin Dose 1 TAB; Start 03/25/17 at 03:06 Miscellaneous Information (Pending [facility] Order For Wound Care) This patient mckeon... PRN PRN XX WOUND CARE; Start 03/25/17 at 08:30 Morphine Sulfate (morphine) 2 mg Q3 PRN IV PAIN LEVEL 4-7 Last administered on 03/29/17 00:27; Admin Dose 2 MG; Start 03/25/17 at 12:00 Miscellaneous Information 1 ea NOTE XX ; Start 03/25/17 at 14:00 Glucose (Glutose) 15 gm Q15M PRN PO DECREASED GLUCOSE; Start 03/25/17 at 14:00 Glucose (Glutose) 22.5 gm Q15M PRN PO DECREASED GLUCOSE; Start 03/25/17 at 14: 00 Dextrose (D50w Syringe) 25 ml Q15M PRN IV DECREASED GLUCOSE; Start 03/25/17 at 14:00 Dextrose (D50w Syringe) 50 ml Q15M PRN IV DECREASED GLUCOSE; Start 03/25/17 at 14:00 Glucagon (Glucagen) 1 mg Q15M PRN IM DECREASED GLUCOSE; Start 03/25/17 at 14: 00 Glucose 15 gm 15 gm Q15M PRN BUCCAL DECREASED GLUCOSE; Start 03/25/17 at 14:00 Ceftriaxone Sodium 50 ml @ 100 mls/hr Q24H IVPB Last administered on 17:24; Admin Dose 100 MLS/HR; Start 03/26/17 at 17:00 Vancomycin HCl/ Dextrose/Water (Vancocin/D5W) 150 ml @ 75 mls/hr Q96H IVPB Last administered on 03/28/17 20:14; Admin Dose 75 MLS/HR; Start 03/28/17 at 20:00 Hydralazine HCl (Apresoline) 25 mg TID PO Last administered on 03/30/17 12:39 ; Admin Dose 25 MG; Start 03/28/17 at 21:00 Hydralazine HCl (Apresoline) 10 mg Q4H PRN IV ELEVATED BLOOD PRESSURE Last administered on 03/28/17 17:51; Admin Dose 10 MG; Start 03/28/17 at 17:00 PIPER FELIX MD Mar 30, 2017 15:32
[2017-03-30] MEDS: CEFTRIAXONE 1 GM/50 ML (PMX) 50 ML IVPB SCH (17:38)
[2017-03-30] MEDS: ATORVASTATIN 40 MG TAB PO SCH (20:17)
[2017-03-30] MEDS: morphine 2 MG INJ IV PRN (23:20)
[2017-03-31] VITALS (19 sets, daily range): BP systolic 125–181; BP diastolic 61–86; PULSE 68–80; RESP 16–20
[2017-03-31] MEDS: ZOLPIDEM 5 MG TAB PO PRN (01:27)
[2017-03-31] MEDS: ACCU-CHEK XX SCH (01:34)
[2017-03-31] MEDS: INSULIN ASPART [NOVOLOG] 3 ML PEN SC SCH ×4 (07:55→20:18)
[2017-03-31] MEDS: DOCUSATE SODIUM 100 MG CAP PO SCH (08:47)
[2017-03-31] MEDS: CINACALCET 30 MG TAB PO SCH ×2 (08:47→20:14)
[2017-03-31 08:48] LABS: BASOPHILS % 0.5 % (0.0-2.0); EOSINOPHILS # 0.2 10^3/ul (0.0-0.5); EOSINOPHILS % 2.9 % (0.0-7.0); HEMATOCRIT 25.2 % (42.0-52.0); HEMOGLOBIN 7.9 g/dl (14.0-18.0); LYMPHOCYTES # 0.6 10^3/ul (0.8-2.9); LYMPHOCYTES % 11.1 % (15.0-51.0); MEAN CORPUSCULAR HEMOGLOBIN 25.8 pg (29.0-33.0); MEAN CORPUSCULAR HGB CONC 31.3 g/dl (32.0-37.0); MEAN CORPUSCULAR VOLUME 82.4 fl (82.0-101.0); MEAN PLATELET VOLUME 9.3 fl (7.4-10.4); MONOCYTE # 0.6 10^3/ul (0.3-0.9); MONOCYTES % 10.2 % (0.0-11.0); NEUTROPHIL # 4.2 10^3/ul (1.6-7.5); NEUTROPHILS % 74.9 % (39.0-77.0); PLATELET COUNT 224 10^3/UL (140-415); RED BLOOD COUNT 3.06 10^6/ul (4.70-6.10); RED CELL DISTRIBUTION WIDTH 19.6 % (11.5-14.5); WHITE BLOOD COUNT 5.6 10^3/ul (4.8-10.8)
[2017-03-31] MEDS: CALCIUM ACETATE 667 MG CAP PO SCH ×3 (08:48→18:33)
[2017-03-31] MEDS: SEVELAMER 800 MG TAB PO SCH ×3 (08:48→18:33)
[2017-03-31] MEDS: LOSARTAN 25 MG TAB PO SCH (08:49)
[2017-03-31] MEDS: AMLODIPINE 5 MG TAB PO SCH ×2 (08:49→20:15)
[2017-03-31] MEDS: CLOPIDOGREL 75 MG TAB PO SCH (08:50)
[2017-03-31 09:17] LABS: CALCIUM 8.5 mg/dl (8.4-10.2); CREATININE 7.98 mg/dl (0.61-1.24); POTASSIUM 4.8 mmol/L (3.5-5.1)
--- NOTE | 2017-03-31 14:12 | CONS ---
Date/Time of Note Date/Time of Note DATE: 03/31/17 TIME: 14:10 Assessment/Plan Assessment/Plan Chief Complaint/Hosp Course No acute changes overnight, patient is awake denies pain looks comfortable Antimicrobials: Vanco Rocephin Indwelling's: Left upper extremity AV fistula Physical examination: well-developed elderly man who is in no distress. Head atraumatic normocephalic sclerae anicteric neck is supple chest rise symmetrical breath sounds diminished bases. Heart: S1-S2. Abdomen soft bowel sounds present, extremities with left foot dry gangrene Assessment: 1. SIRS 2. L foot gangrene 3. ESRD 4. Anemia 5. DM 6. Coronary artery disease status post permanent pacemaker placement 7. Severe peripheral vascular disease Plan: Clinically unchanged, continue antibiotics, follow cardiology, nephrology , vascular recommendations Discussed with staff Problems: Consultation Date/Type/Reason Admit Date/Time Mar 24, 2017 at 14:04 Type of Consultation: ID Referring Provider: POLY THRASHER MD Exam/Review of Systems Vital Signs Vitals Vital Signs Date Time Temp Pulse Resp B/P Pulse Ox O2 Delivery O2 Flow Rate FiO2 03/31/17 13:00 68 15 03/31/17 11:13 98.1 150/74 95 03/31/17 08:02 Nasal Cannula 03/30/17 07:35 2.0 Intake and Output 03/30/17 03/30/17 03/31/17 15:00 23:00 07:00 Intake Total 700 ml 500 ml Balance 700 ml 500 ml Results Result Diagram: 03/31/17 0712 03/31/17 0712 Results 24 hrs Laboratory Tests Test 03/30/17 17:37 03/30/17 20:14 03/31/17 07:12 03/31/17 08:38 Bedside Glucose 139 120 80 White Blood Count 5.6 Red Blood Count 3.06 L Hemoglobin 7.9 L Hematocrit 25.2 L Mean Corpuscular Volume 82.4 Mean Corpuscular Hemoglobin 25.8 L Mean Corpuscular Hemoglobin Concent 31.3 L Red Cell Distribution Width 19.6 H Platelet Count 224 Mean Platelet Volume 9.3 Neutrophils % 74.9 Lymphocytes % 11.1 L Monocytes % 10.2 Eosinophils % 2.9 Basophils % 0.5 Nucleated Red Blood Cells % 0.0 Neutrophils # 4.2 Lymphocytes # 0.6 L Monocytes # 0.6 Eosinophils # 0.2 Basophils # 0.0 Nucleated Red Blood Cells # 0.0 Sodium Level 137 Potassium Level 4.8 Chloride Level 94 L Carbon Dioxide Level 25 Anion Gap 23 H Blood Urea Nitrogen 72 H Creatinine 7.98 H Glucose Level 67 #L Calcium Level 8.5 Test 03/31/17 12:18 Bedside Glucose 112 Medications Medications Current Medications Diagnostic Test (Pha) (Accu-Chek) 1 ea 02 XX ; Start 03/25/17 at 02:00 Amlodipine Besylate (Norvasc) 5 mg BID PO Last administered on 03/31/17 08:49 ; Admin Dose 5 MG; Start 03/24/17 at 21:00 Atorvastatin Calcium (Lipitor) 40 mg HS PO Last administered on 03/30/17 20: 17; Admin Dose 40 MG; Start 03/24/17 at 21:00 Cinacalcet (Sensipar) 30 mg BID PO Last administered on 03/31/17 08:47; Admin Dose 30 MG; Start 03/24/17 at 21:00 Clopidogrel Bisulfate (plaVIX) 75 mg DAILY PO Last administered on 03/31/17 08:50; Admin Dose 75 MG; Start 03/25/17 at 09:00 Losartan Potassium (Cozaar) 25 mg DAILY PO Last administered on 03/31/17 08: 49; Admin Dose 25 MG; Start 03/25/17 at 09:00 Zolpidem Tartrate (Ambien) 5 mg QHS PRN PO INSOMNIA Last administered on 01:27; Admin Dose 5 MG; Start 03/24/17 at 20:00 Ondansetron HCl (Zofran Inj) 4 mg Q6H PRN IV NAUSEA AND/OR VOMITING; Start at 20:00 Acetaminophen (Tylenol Tab) 650 mg Q6H PRN PO PAIN AND OR ELEVATED TEMP; Start 03/24/17 at 20:00 Docusate Sodium (Colace) 100 mg DAILY PO Last administered on 03/31/17 08:47 ; Admin Dose 100 MG; Start 03/24/17 at 20:56 Al Hydrox/Mg Hydrox/Simethicone (Mag-Al Plus) 30 ml Q6H PRN PO GASTROINTESTINAL UPSET Last administered on 03/27/17 23:01; Admin Dose 30 ML; Start 03/24/17 at 21:00 Acetaminophen/ Hydrocodone Bitart ([place] (5/325)) 1 tab Q4H PRN PO PAIN Last administered on 03/30/17 21:16; Admin Dose 1 TAB; Start 03/25/17 at 03:06 Miscellaneous Information (Pending Santyl Order For Wound Care) This patient mckeon... PRN PRN XX WOUND CARE; Start 03/25/17 at 08:30 Morphine Sulfate (morphine) 2 mg Q3 PRN IV PAIN LEVEL 4-7 Last administered on 03/30/17 23:20; Admin Dose 2 MG; Start 03/25/17 at 12:00 Miscellaneous Information 1 ea NOTE XX ; Start 03/25/17 at 14:00 Glucose (Glutose) 15 gm Q15M PRN PO DECREASED GLUCOSE; Start 03/25/17 at 14:00 Glucose (Glutose) 22.5 gm Q15M PRN PO DECREASED GLUCOSE; Start 03/25/17 at 14: 00 Dextrose (D50w Syringe) 25 ml Q15M PRN IV DECREASED GLUCOSE; Start 03/25/17 at 14:00 Dextrose (D50w Syringe) 50 ml Q15M PRN IV DECREASED GLUCOSE; Start 03/25/17 at 14:00 Glucagon (Glucagen) 1 mg Q15M PRN IM DECREASED GLUCOSE; Start 03/25/17 at 14: 00 Glucose 15 gm 15 gm Q15M PRN BUCCAL DECREASED GLUCOSE; Start 03/25/17 at 14:00 Ceftriaxone Sodium 50 ml @ 100 mls/hr Q24H IVPB Last administered on 17:38; Admin Dose 100 MLS/HR; Start 03/26/17 at 17:00 Vancomycin HCl/ Dextrose/Water (Vancocin/D5W) 150 ml @ 75 mls/hr Q96H IVPB Last administered on 03/28/17 20:14; Admin Dose 75 MLS/HR; Start 03/28/17 at 20:00 Hydralazine HCl (Apresoline) 25 mg TID PO Last administered on 03/31/17 12:48 ; Admin Dose 25 MG; Start 03/28/17 at 21:00 Hydralazine HCl (Apresoline) 10 mg Q4H PRN IV ELEVATED BLOOD PRESSURE Last administered on 11/24/17at 17:51; Admin Dose 10 MG; Start 03/28/17 at 17:00 SHITAL MCKEON NP Mar 31, 2017 14:12
[2017-03-31] MEDS: HYDROCODONE/APAP (5/325) TAB PO PRN (14:43)
--- NOTE | 2017-03-31 15:43 | PN ---
Date/Time of Note Date/Time of Note DATE: 03/31/17 TIME: 15:42 Assessment/Plan VTE Prophylaxis VTE Prophylaxis Intervention: SCD's Lines/Catheters [facility] [place] [employer] line still needed: Yes Urinary Cath still in place: No Assessment/Plan Chief Complaint/Hosp Course Patient is undergoing hemodialysis, stating that his lower extremity pain is better controlled today. Assessment/Plan - Acute hypoxemic respiratory failure secondary to CHF exacerbation, continue to remove fluids with hemodialysis - End-stage renal disease, hemodialysis dependent. Dr. Newby is following in nephrology consultation. Continue on hemodialysis. - Left foot gangrenous wounds, continue antibiotics per ID. Dr. Tobias is following in infection disease consultation. - Systemic inflammatory response syndrome secondary to gangrene of the left foot - Hypertension. Continue home antihypertensive medication. Monitor blood pressure. - CAD - Permanent Pacemaker, Dr. Wagner is following in cardiology consultation - Legally blind status. - Anemia of chronic disease. - Severe peripheral vascular disease with severe infrapopliteal disease and pedal disease. Further recommendations based on clinical course. Plan of care discussed with Dr. French. Problems: Exam/Review of Systems Vital Signs Vitals Vital Signs Date Time Temp Pulse Resp B/P Pulse Ox O2 Delivery O2 Flow Rate FiO2 03/31/17 14:00 70 03/31/17 13:00 15 03/31/17 11:13 98.1 150/74 95 03/31/17 08:02 Nasal Cannula 03/30/17 07:35 2.0 Intake and Output 03/30/17 03/30/17 03/31/17 15:00 23:00 07:00 Intake Total 700 ml 500 ml Balance 700 ml 500 ml Exam Constitutional: alert, oriented Eyes: other (Blind) Neck: supple Respiratory: clear to auscultation Cardiovascular: nl pulses Gastrointestinal: non-tender, soft Musculoskeletal: nl extremities to inspection Extremities: normal pulses, other (Left foot gangrenous wounds) Results Result Diagram: 03/31/1712 03/31/1712 Results 24 hrs Laboratory Tests Test 03/30/17 17:37 03/30/17 20:14 03/31/17 07:12 03/31/17 08:38 Bedside Glucose 139 120 80 White Blood Count 5.6 Red Blood Count 3.06 L Hemoglobin 7.9 L Hematocrit 25.2 L Mean Corpuscular Volume 82.4 Mean Corpuscular Hemoglobin 25.8 L Mean Corpuscular Hemoglobin Concent 31.3 L Red Cell Distribution Width 19.6 H Platelet Count 224 Mean Platelet Volume 9.3 Neutrophils % 74.9 Lymphocytes % 11.1 L Monocytes % 10.2 Eosinophils % 2.9 Basophils % 0.5 Nucleated Red Blood Cells % 0.0 Neutrophils # 4.2 Lymphocytes # 0.6 L Monocytes # 0.6 Eosinophils # 0.2 Basophils # 0.0 Nucleated Red Blood Cells # 0.0 Sodium Level 137 Potassium Level 4.8 Chloride Level 94 L Carbon Dioxide Level 25 Anion Gap 23 H Blood Urea Nitrogen 72 H Creatinine 7.98 H Glucose Level 67 #L Calcium Level 8.5 Test 03/31/17 12:18 Bedside Glucose 112 Medications Medications Current Medications Diagnostic Test (Pha) (Accu-Chek) 1 ea 02 XX ; Start 03/25/17 at 02:00 Amlodipine Besylate (Norvasc) 5 mg BID PO Last administered on 03/31/17 08:49 ; Admin Dose 5 MG; Start 03/24/17 at 21:00 Atorvastatin Calcium (Lipitor) 40 mg HS PO Last administered on 03/30/17 20: 17; Admin Dose 40 MG; Start 03/24/17 at 21:00 Cinacalcet (Sensipar) 30 mg BID PO Last administered on 03/31/17 08:47; Admin Dose 30 MG; Start 03/24/17 at 21:00 Clopidogrel Bisulfate (plaVIX) 75 mg DAILY PO Last administered on 03/31/17 08:50; Admin Dose 75 MG; Start 03/25/17 at 09:00 Losartan Potassium (Cozaar) 25 mg DAILY PO Last administered on 03/31/17 08: 49; Admin Dose 25 MG; Start 03/25/17 at 09:00 Zolpidem Tartrate (Ambien) 5 mg QHS PRN PO INSOMNIA Last administered on 01:27; Admin Dose 5 MG; Start 03/24/17 at 20:00 Ondansetron HCl (Zofran Inj) 4 mg Q6H PRN IV NAUSEA AND/OR VOMITING; Start at 20:00 Acetaminophen (Tylenol Tab) 650 mg Q6H PRN PO PAIN AND OR ELEVATED TEMP; Start 03/24/17 at 20:00 Docusate Sodium (Colace) 100 mg DAILY PO Last administered on 03/31/17 08:47 ; Admin Dose 100 MG; Start 03/24/17 at 20:56 Al Hydrox/Mg Hydrox/Simethicone (Mag-Al Plus) 30 ml Q6H PRN PO GASTROINTESTINAL UPSET Last administered on 03/27/17 23:01; Admin Dose 30 ML; Start 03/24/17 at 21:00 Acetaminophen/ Hydrocodone Bitart ([place] (5/325)) 1 tab Q4H PRN PO PAIN Last administered on 03/31/17 14:43; Admin Dose 1 TAB; Start 03/25/17 at 03:06 Miscellaneous Information (Pending [facility] Order For Wound Care) This patient mckeon... PRN PRN XX WOUND CARE; Start 03/25/17 at 08:30 Morphine Sulfate (morphine) 2 mg Q3 PRN IV PAIN LEVEL 4-7 Last administered on 03/30/17 23:20; Admin Dose 2 MG; Start 03/25/17 at 12:00 Miscellaneous Information 1 ea NOTE XX ; Start 03/25/17 at 14:00 Glucose (Glutose) 15 gm Q15M PRN PO DECREASED GLUCOSE; Start 03/25/17 at 14:00 Glucose (Glutose) 22.5 gm Q15M PRN PO DECREASED GLUCOSE; Start 03/25/17 at 14: 00 Dextrose (D50w Syringe) 25 ml Q15M PRN IV DECREASED GLUCOSE; Start 03/25/17 at 14:00 Dextrose (D50w Syringe) 50 ml Q15M PRN IV DECREASED GLUCOSE; Start 03/25/17 at 14:00 Glucagon (Glucagen) 1 mg Q15M PRN IM DECREASED GLUCOSE; Start 03/25/17 at 14: 00 Glucose 15 gm 15 gm Q15M PRN BUCCAL DECREASED GLUCOSE; Start 03/25/17 at 14:00 Ceftriaxone Sodium 50 ml @ 100 mls/hr Q24H IVPB Last administered on 17:38; Admin Dose 100 MLS/HR; Start 03/26/17 at 17:00 Vancomycin HCl/ Dextrose/Water (Vancocin/D5W) 150 ml @ 75 mls/hr Q96H IVPB Last administered on 03/28/17 20:14; Admin Dose 75 MLS/HR; Start 03/28/17 at 20:00 Hydralazine HCl (Apresoline) 25 mg TID PO Last administered on 03/31/17 12:48 ; Admin Dose 25 MG; Start 03/28/17 at 21:00 Hydralazine HCl (Apresoline) 10 mg Q4H PRN IV ELEVATED BLOOD PRESSURE Last administered on 03/28/17 17:51; Admin Dose 10 MG; Start 03/28/17 at 17:00 VIV KING Mar 31, 2017 15:43
[2017-03-31] MEDS: CEFTRIAXONE 1 GM/50 ML (PMX) 50 ML IVPB SCH (18:33)
[2017-03-31] MEDS: ATORVASTATIN 40 MG TAB PO SCH (20:14)
[2017-03-31] MEDS: morphine 2 MG INJ IV PRN (22:51)
[2017-04-01] VITALS (13 sets, daily range): BP systolic 138–166; BP diastolic 63–74; PULSE 62–72; RESP 17–20
[2017-04-01] MEDS: ACCU-CHEK XX SCH (02:00)
--- NOTE | 2017-04-01 06:39 | CONS ---
Date/Time of Note Date/Time of Note DATE: 04/01/17 TIME: 06:38 Assessment/Plan Assessment/Plan Additional Assessment/Plan 61 yo Male with 1) Chest pain, CAD 2) Uncontrolled HTN 3) ESRD on HD 4) Dm With Renal Complication, ESRD 5) Anemia, Chronic, CKD 6) MBD, CKD Cont Anti -HTN Rx Will cont to follow closely HD MWF Next HD tomorrow Cont current Rx and plan. Consultation Date/Type/Reason Admit Date/Time Mar 24, 2017 at 14:04 Type of Consultation: Renal Referring Provider: POLY THRASHER MD 24 HR Interval Summary Free Text/Dictation No new complaints, S/p HD yesterday. Constitutional: No requiring O2 Exam/Review of Systems Vital Signs Vitals Vital Signs Date Time Temp Pulse Resp B/P Pulse Ox O2 Delivery O2 Flow Rate FiO2 04/01/17 04:35 71 04/01/17 04:00 97.8 20 146/67 96 03/31/17 20:00 Nasal Cannula 03/30/17 07:35 2.0 Intake and Output 03/31/17 03/31/17 04/01/17 14:59 22:59 06:59 Intake Total 1250 ml 200 ml Output Total 3500 ml Balance -2250 ml 200 ml Exam Constitutional: No distress ENMT: mucosa pink and moist Neck: No jvd Respiratory: clear to auscultation Cardiovascular: regular rate and rhythm, No edema Gastrointestinal: non-tender, soft Neurological: nl mental status, No lethargic Results Result Diagram: 03/31/17 0712 03/31/17 0712 Results 24 hrs Laboratory Tests Test 03/31/17 07:12 03/31/17 08:38 03/31/17 12:18 03/31/17 18:09 White Blood Count 5.6 Red Blood Count 3.06 L Hemoglobin 7.9 L Hematocrit 25.2 L Mean Corpuscular Volume 82.4 Mean Corpuscular Hemoglobin 25.8 L Mean Corpuscular Hemoglobin Concent 31.3 L Red Cell Distribution Width 19.6 H Platelet Count 224 Mean Platelet Volume 9.3 Neutrophils % 74.9 Lymphocytes % 11.1 L Monocytes % 10.2 Eosinophils % 2.9 Basophils % 0.5 Nucleated Red Blood Cells % 0.0 Neutrophils # 4.2 Lymphocytes # 0.6 L Monocytes # 0.6 Eosinophils # 0.2 Basophils # 0.0 Nucleated Red Blood Cells # 0.0 Sodium Level 137 Potassium Level 4.8 Chloride Level 94 L Carbon Dioxide Level 25 Anion Gap 23 H Blood Urea Nitrogen 72 H Creatinine 7.98 H Glucose Level 67 #L Calcium Level 8.5 Bedside Glucose 80 112 125 Test 03/31/17 20:18 Bedside Glucose 163 Medications Medications Current Medications Diagnostic Test (Pha) (Accu-Chek) 1 ea 02 XX ; Start 03/25/17 at 02:00 Amlodipine Besylate (Norvasc) 5 mg BID PO Last administered on 03/31/17 20:15 ; Admin Dose 5 MG; Start 03/24/17 at 21:00 Atorvastatin Calcium (Lipitor) 40 mg HS PO Last administered on 03/31/17 20: 14; Admin Dose 40 MG; Start 03/24/17 at 21:00 Cinacalcet (Sensipar) 30 mg BID PO Last administered on 03/31/17 20:14; Admin Dose 30 MG; Start 03/24/17 at 21:00 Clopidogrel Bisulfate (plaVIX) 75 mg DAILY PO Last administered on 03/31/17 08:50; Admin Dose 75 MG; Start 03/25/17 at 09:00 Losartan Potassium (Cozaar) 25 mg DAILY PO Last administered on 03/31/17 08: 49; Admin Dose 25 MG; Start 03/25/17 at 09:00 Zolpidem Tartrate (Ambien) 5 mg QHS PRN PO INSOMNIA Last administered on 01:27; Admin Dose 5 MG; Start 03/24/17 at 20:00 Ondansetron HCl (Zofran Inj) 4 mg Q6H PRN IV NAUSEA AND/OR VOMITING; Start at 20:00 Acetaminophen (Tylenol Tab) 650 mg Q6H PRN PO PAIN AND OR ELEVATED TEMP; Start 03/24/17 at 20:00 Docusate Sodium (Colace) 100 mg DAILY PO Last administered on 03/31/17 08:47 ; Admin Dose 100 MG; Start 03/24/17 at 20:56 Al Hydrox/Mg Hydrox/Simethicone (Mag-Al Plus) 30 ml Q6H PRN PO GASTROINTESTINAL UPSET Last administered on 03/27/17 23:01; Admin Dose 30 ML; Start 03/24/17 at 21:00 Acetaminophen/ Hydrocodone Bitart ([place] (5/325)) 1 tab Q4H PRN PO PAIN Last administered on 03/31/17 14:43; Admin Dose 1 TAB; Start 03/25/17 at 03:06 Miscellaneous Information (Pending Santyl Order For Wound Care) This patient mckeon... PRN PRN XX WOUND CARE; Start 03/25/17 at 08:30 Morphine Sulfate (morphine) 2 mg Q3 PRN IV PAIN LEVEL 4-7 Last administered on 03/31/17 22:51; Admin Dose 2 MG; Start 03/25/17 at 12:00 Miscellaneous Information 1 ea NOTE XX ; Start 03/25/17 at 14:00 Glucose (Glutose) 15 gm Q15M PRN PO DECREASED GLUCOSE; Start 03/25/17 at 14:00 Glucose (Glutose) 22.5 gm Q15M PRN PO DECREASED GLUCOSE; Start 03/25/17 at 14: 00 Dextrose (D50w Syringe) 25 ml Q15M PRN IV DECREASED GLUCOSE; Start 03/25/17 at 14:00 Dextrose (D50w Syringe) 50 ml Q15M PRN IV DECREASED GLUCOSE; Start 03/25/17 at 14:00 Glucagon (Glucagen) 1 mg Q15M PRN IM DECREASED GLUCOSE; Start 03/25/17 at 14: 00 Glucose 15 gm 15 gm Q15M PRN BUCCAL DECREASED GLUCOSE; Start 03/25/17 at 14:00 Ceftriaxone Sodium 50 ml @ 100 mls/hr Q24H IVPB Last administered on 18:33; Admin Dose 100 MLS/HR; Start 03/26/17 at 17:00 Vancomycin HCl/ Dextrose/Water (Vancocin/D5W) 150 ml @ 75 mls/hr Q96H IVPB Last administered on 03/28/17 20:14; Admin Dose 75 MLS/HR; Start 03/28/17 at 20:00 Hydralazine HCl (Apresoline) 25 mg TID PO Last administered on 03/31/17 20:15 ; Admin Dose 25 MG; Start 03/28/17 at 21:00 Hydralazine HCl (Apresoline) 10 mg Q4H PRN IV ELEVATED BLOOD PRESSURE Last administered on 11/24/17at 17:51; Admin Dose 10 MG; Start 03/28/17 at 17:00 PIPER FELIX MD Apr 01, 2017 06:39
[2017-04-01 07:30] LABS: ABNORMAL IP MESSAGE 1; BASOPHILS % 0.2 % (0.0-2.0); EOSINOPHILS # 0.2 10^3/ul (0.0-0.5); EOSINOPHILS % 3.3 % (0.0-7.0); HEMATOCRIT 24.1 % (42.0-52.0); HEMOGLOBIN 7.5 g/dl (14.0-18.0); LYMPHOCYTES # 0.6 10^3/ul (0.8-2.9); LYMPHOCYTES % 10.1 % (15.0-51.0); MEAN CORPUSCULAR HEMOGLOBIN 25.5 pg (29.0-33.0); MEAN CORPUSCULAR HGB CONC 31.1 g/dl (32.0-37.0); MEAN PLATELET VOLUME 8.8 fl (7.4-10.4); MONOCYTE # 0.9 10^3/ul (0.3-0.9); MONOCYTES % 14.8 % (0.0-11.0); NEUTROPHIL # 4.1 10^3/ul (1.6-7.5); NEUTROPHILS % 71.3 % (39.0-77.0); PLATELET COUNT 230 10^3/UL (140-415); POSITIVE DIFF @See below; RED BLOOD COUNT 2.94 10^6/ul (4.70-6.10); RED CELL DISTRIBUTION WIDTH 19.8 % (11.5-14.5); WHITE BLOOD COUNT 5.7 10^3/ul (4.8-10.8)
[2017-04-01 07:49] LABS: CALCIUM 8.9 mg/dl (8.4-10.2); CREATININE 6.02 mg/dl (0.61-1.24); POTASSIUM 4.5 mmol/L (3.5-5.1)
[2017-04-01] MEDS: INSULIN ASPART [NOVOLOG] 3 ML PEN SC SCH ×4 (07:55→20:46)
[2017-04-01] MEDS: AMLODIPINE 5 MG TAB PO SCH ×2 (08:19→20:43)
[2017-04-01] MEDS: CINACALCET 30 MG TAB PO SCH ×2 (08:20→20:43)
[2017-04-01] MEDS: LOSARTAN 25 MG TAB PO SCH (08:20)
[2017-04-01] MEDS: DOCUSATE SODIUM 100 MG CAP PO SCH (08:21)
[2017-04-01] MEDS: CLOPIDOGREL 75 MG TAB PO SCH (08:21)
[2017-04-01] MEDS: SEVELAMER 800 MG TAB PO SCH ×3 (08:21→17:19)
[2017-04-01] MEDS: CALCIUM ACETATE 667 MG CAP PO SCH ×3 (08:21→17:19)
--- NOTE | 2017-04-01 15:34 | CONS ---
Date/Time of Note Date/Time of Note DATE: 04/01/17 TIME: 15:33 Assessment/Plan Assessment/Plan Chief Complaint/Hosp Course No acute changes overnight, looks comfortable Antimicrobials: Vanco Rocephin Indwelling's: Left upper extremity AV fistula Physical examination: well-developed elderly man who is in no distress. Head atraumatic normocephalic sclerae anicteric neck is supple chest rise symmetrical breath sounds diminished bases. Heart: S1-S2. Abdomen soft bowel sounds present, extremities with left foot dry gangrene Assessment: 1. SIRS 2. L foot gangrene 3. ESRD 4. Anemia 5. DM 6. Coronary artery disease status post permanent pacemaker placement 7. Severe peripheral vascular disease Plan: Clinically unchanged, continue antibiotics, follow cardiology, nephrology , vascular recommendations Discussed with staff Problems: Consultation Date/Type/Reason Admit Date/Time Mar 24, 2017 at 14:04 Type of Consultation: ID Referring Provider: POLY THRASHER MD Exam/Review of Systems Vital Signs Vitals Vital Signs Date Time Temp Pulse Resp B/P Pulse Ox O2 Delivery O2 Flow Rate FiO2 04/01/17 15:13 97.5 70 17 138/63 99 03/31/17 20:00 Nasal Cannula 03/30/17 07:35 2.0 Intake and Output 03/31/17 03/31/17 04/01/17 15:00 23:00 07:00 Intake Total 1250 ml 200 ml Output Total 3500 ml Balance -2250 ml 200 ml Results Result Diagram: 04/01/17 0709 04/01/17 0709 Results 24 hrs Laboratory Tests Test 03/31/17 18:09 03/31/17 20:18 04/01/17 07:09 04/01/17 08:17 Bedside Glucose 125 163 80 White Blood Count 5.7 Red Blood Count 2.94 L Hemoglobin 7.5 L Hematocrit 24.1 L Mean Corpuscular Volume 82.0 Mean Corpuscular Hemoglobin 25.5 L Mean Corpuscular Hemoglobin Concent 31.1 L Red Cell Distribution Width 19.8 H Platelet Count 230 Mean Platelet Volume 8.8 Neutrophils % 71.3 Lymphocytes % 10.1 L Monocytes % 14.8 H Eosinophils % 3.3 Basophils % 0.2 Nucleated Red Blood Cells % 0.0 Neutrophils # 4.1 Lymphocytes # 0.6 L Monocytes # 0.9 Eosinophils # 0.2 Basophils # 0.0 Nucleated Red Blood Cells # 0.0 Sodium Level 139 Potassium Level 4.5 Chloride Level 94 L Carbon Dioxide Level 30 Anion Gap 20 H Blood Urea Nitrogen 47 #H Creatinine 6.02 H Glucose Level 79 Calcium Level 8.9 Test 04/01/17 12:15 Bedside Glucose 116 Medications Medications Current Medications Diagnostic Test (Pha) (Accu-Chek) 1 ea 02 XX ; Start 03/25/17 at 02:00 Amlodipine Besylate (Norvasc) 5 mg BID PO Last administered on 04/01/17 08:19 ; Admin Dose 5 MG; Start 03/24/17 at 21:00 Atorvastatin Calcium (Lipitor) 40 mg HS PO Last administered on 03/31/17 20: 14; Admin Dose 40 MG; Start 03/24/17 at 21:00 Cinacalcet (Sensipar) 30 mg BID PO Last administered on 04/01/17 08:20; Admin Dose 30 MG; Start 03/24/17 at 21:00 Clopidogrel Bisulfate (plaVIX) 75 mg DAILY PO Last administered on 04/01/17 08:21; Admin Dose 75 MG; Start 03/25/17 at 09:00 Losartan Potassium (Cozaar) 25 mg DAILY PO Last administered on 04/01/17 08: 20; Admin Dose 25 MG; Start 03/25/17 at 09:00 Zolpidem Tartrate (Ambien) 5 mg QHS PRN PO INSOMNIA Last administered on 01:27; Admin Dose 5 MG; Start 03/24/17 at 20:00 Ondansetron HCl (Zofran Inj) 4 mg Q6H PRN IV NAUSEA AND/OR VOMITING; Start at 20:00 Acetaminophen (Tylenol Tab) 650 mg Q6H PRN PO PAIN AND OR ELEVATED TEMP; Start 03/24/17 at 20:00 Docusate Sodium (Colace) 100 mg DAILY PO Last administered on 03/31/17 08:47 ; Admin Dose 100 MG; Start 03/24/17 at 20:56 Al Hydrox/Mg Hydrox/Simethicone (Mag-Al Plus) 30 ml Q6H PRN PO GASTROINTESTINAL UPSET Last administered on 03/27/17 23:01; Admin Dose 30 ML; Start 03/24/17 at 21:00 Acetaminophen/ Hydrocodone Bitart ([place] (5/325)) 1 tab Q4H PRN PO PAIN Last administered on 03/31/17 14:43; Admin Dose 1 TAB; Start 03/25/17 at 03:06 Miscellaneous Information (Pending Santyl Order For Wound Care) This patient mckeon... PRN PRN XX WOUND CARE; Start 03/25/17 at 08:30 Morphine Sulfate (morphine) 2 mg Q3 PRN IV PAIN LEVEL 4-7 Last administered on 03/31/17 22:51; Admin Dose 2 MG; Start 03/25/17 at 12:00 Miscellaneous Information 1 ea NOTE XX ; Start 03/25/17 at 14:00 Glucose (Glutose) 15 gm Q15M PRN PO DECREASED GLUCOSE; Start 03/25/17 at 14:00 Glucose (Glutose) 22.5 gm Q15M PRN PO DECREASED GLUCOSE; Start 03/25/17 at 14: 00 Dextrose (D50w Syringe) 25 ml Q15M PRN IV DECREASED GLUCOSE; Start 03/25/17 at 14:00 Dextrose (D50w Syringe) 50 ml Q15M PRN IV DECREASED GLUCOSE; Start 03/25/17 at 14:00 Glucagon (Glucagen) 1 mg Q15M PRN IM DECREASED GLUCOSE; Start 03/25/17 at 14: 00 Glucose 15 gm 15 gm Q15M PRN BUCCAL DECREASED GLUCOSE; Start 03/25/17 at 14:00 Ceftriaxone Sodium 50 ml @ 100 mls/hr Q24H IVPB Last administered on 18:33; Admin Dose 100 MLS/HR; Start 03/26/17 at 17:00 Vancomycin HCl/ Dextrose/Water (Vancocin/D5W) 150 ml @ 75 mls/hr Q96H IVPB Last administered on 03/28/17 20:14; Admin Dose 75 MLS/HR; Start 03/28/17 at 20:00 Hydralazine HCl (Apresoline) 25 mg TID PO Last administered on 04/01/17 12:17 ; Admin Dose 25 MG; Start 03/28/17 at 21:00 Hydralazine HCl (Apresoline) 10 mg Q4H PRN IV ELEVATED BLOOD PRESSURE Last administered on 11/24/17at 17:51; Admin Dose 10 MG; Start 03/28/17 at 17:00 SHITAL MCKEON NP Apr 01, 2017 15:34
[2017-04-01] MEDS: CEFTRIAXONE 1 GM/50 ML (PMX) 50 ML IVPB SCH (17:20)
--- NOTE | 2017-04-01 18:51 | PN ---
Date/Time of Note Date/Time of Note DATE: 04/01/17 TIME: 18:48 Assessment/Plan VTE Prophylaxis VTE Prophylaxis Intervention: SCD's Lines/Catheters [facility] Urinary Cath still in place: No Assessment/Plan Chief Complaint/Hosp Course Hemoglobin is 7.5, will transfuse 1 unit of blood for his next hemodialysis, patient's pain is better controlled, patient remains hemodynamically stable. Assessment/Plan - Acute hypoxemic respiratory failure secondary to CHF exacerbation, continue to remove fluids with hemodialysis - End-stage renal disease, hemodialysis dependent. Dr. Newby is following in nephrology consultation. Continue on hemodialysis. - Left foot gangrenous wounds, continue antibiotics per ID. Dr. Tobias is following in infection disease consultation. - Systemic inflammatory response syndrome secondary to gangrene of the left foot - Hypertension. Continue home antihypertensive medication. Monitor blood pressure. - CAD - Permanent Pacemaker, Dr. Wagner is following in cardiology consultation - Legally blind status. - Anemia of chronic disease. - Severe peripheral vascular disease with severe infrapopliteal disease and pedal disease. Further recommendations based on clinical course. Plan of care discussed with Dr. French. Problems: Exam/Review of Systems Vital Signs Vitals Vital Signs Date Time Temp Pulse Resp B/P Pulse Ox O2 Delivery O2 Flow Rate FiO2 04/01/17 16:00 70 04/01/17 15:13 97.5 17 138/63 99 03/31/17 20:00 Nasal Cannula 03/30/17 07:35 2.0 Intake and Output 03/31/17 03/31/17 04/01/17 14:59 22:59 06:59 Intake Total 1250 ml 200 ml Output Total 3500 ml Balance -2250 ml 200 ml Exam Constitutional: alert, oriented Eyes: other (Blind) Neck: supple Respiratory: clear to auscultation Cardiovascular: nl pulses, PPM right groin Gastrointestinal: non-tender, soft Musculoskeletal: nl extremities to inspection Extremities: normal pulses, other (Left foot gangrenous wounds) Results Result Diagram: 04/01/17 0709 04/01/17 0709 Results 24 hrs Laboratory Tests Test 03/31/17 20:18 04/01/17 07:09 04/01/17 08:17 04/01/17 12:15 Bedside Glucose 163 80 116 White Blood Count 5.7 Red Blood Count 2.94 L Hemoglobin 7.5 L Hematocrit 24.1 L Mean Corpuscular Volume 82.0 Mean Corpuscular Hemoglobin 25.5 L Mean Corpuscular Hemoglobin Concent 31.1 L Red Cell Distribution Width 19.8 H Platelet Count 230 Mean Platelet Volume 8.8 Neutrophils % 71.3 Lymphocytes % 10.1 L Monocytes % 14.8 H Eosinophils % 3.3 Basophils % 0.2 Nucleated Red Blood Cells % 0.0 Neutrophils # 4.1 Lymphocytes # 0.6 L Monocytes # 0.9 Eosinophils # 0.2 Basophils # 0.0 Nucleated Red Blood Cells # 0.0 Sodium Level 139 Potassium Level 4.5 Chloride Level 94 L Carbon Dioxide Level 30 Anion Gap 20 H Blood Urea Nitrogen 47 #H Creatinine 6.02 H Glucose Level 79 Calcium Level 8.9 Test 04/01/17 17:21 Bedside Glucose 91 Medications Medications Current Medications Diagnostic Test (Pha) (Accu-Chek) 1 ea 02 XX ; Start 03/25/17 at 02:00 Amlodipine Besylate (Norvasc) 5 mg BID PO Last administered on 04/01/17 08:19 ; Admin Dose 5 MG; Start 03/24/17 at 21:00 Atorvastatin Calcium (Lipitor) 40 mg HS PO Last administered on 03/31/17 20: 14; Admin Dose 40 MG; Start 03/24/17 at 21:00 Cinacalcet (Sensipar) 30 mg BID PO Last administered on 04/01/17 08:20; Admin Dose 30 MG; Start 03/24/17 at 21:00 Clopidogrel Bisulfate (plaVIX) 75 mg DAILY PO Last administered on 04/01/17 08:21; Admin Dose 75 MG; Start 03/25/17 at 09:00 Losartan Potassium (Cozaar) 25 mg DAILY PO Last administered on 04/01/17 08: 20; Admin Dose 25 MG; Start 03/25/17 at 09:00 Zolpidem Tartrate (Ambien) 5 mg QHS PRN PO INSOMNIA Last administered on 01:27; Admin Dose 5 MG; Start 03/24/17 at 20:00 Ondansetron HCl (Zofran Inj) 4 mg Q6H PRN IV NAUSEA AND/OR VOMITING; Start at 20:00 Acetaminophen (Tylenol Tab) 650 mg Q6H PRN PO PAIN AND OR ELEVATED TEMP; Start 03/24/17 at 20:00 Docusate Sodium (Colace) 100 mg DAILY PO Last administered on 03/31/17 08:47 ; Admin Dose 100 MG; Start 03/24/17 at 20:56 Al Hydrox/Mg Hydrox/Simethicone (Mag-Al Plus) 30 ml Q6H PRN PO GASTROINTESTINAL UPSET Last administered on 03/27/17 23:01; Admin Dose 30 ML; Start 03/24/17 at 21:00 Acetaminophen/ Hydrocodone Bitart ([place] (5/325)) 1 tab Q4H PRN PO PAIN Last administered on 03/31/17 14:43; Admin Dose 1 TAB; Start 03/25/17 at 03:06 Miscellaneous Information (Pending [facility] Order For Wound Care) This patient mckeon... PRN PRN XX WOUND CARE; Start 03/25/17 at 08:30 Morphine Sulfate (morphine) 2 mg Q3 PRN IV PAIN LEVEL 4-7 Last administered on 03/31/17 22:51; Admin Dose 2 MG; Start 03/25/17 at 12:00 Miscellaneous Information 1 ea NOTE XX ; Start 03/25/17 at 14:00 Glucose (Glutose) 15 gm Q15M PRN PO DECREASED GLUCOSE; Start 03/25/17 at 14:00 Glucose (Glutose) 22.5 gm Q15M PRN PO DECREASED GLUCOSE; Start 03/25/17 at 14: 00 Dextrose (D50w Syringe) 25 ml Q15M PRN IV DECREASED GLUCOSE; Start 03/25/17 at 14:00 Dextrose (D50w Syringe) 50 ml Q15M PRN IV DECREASED GLUCOSE; Start 03/25/17 at 14:00 Glucagon (Glucagen) 1 mg Q15M PRN IM DECREASED GLUCOSE; Start 03/25/17 at 14: 00 Glucose 15 gm 15 gm Q15M PRN BUCCAL DECREASED GLUCOSE; Start 03/25/17 at 14:00 Ceftriaxone Sodium 50 ml @ 100 mls/hr Q24H IVPB Last administered on 17:20; Admin Dose 100 MLS/HR; Start 03/26/17 at 17:00 Vancomycin HCl/ Dextrose/Water (Vancocin/D5W) 150 ml @ 75 mls/hr Q96H IVPB Last administered on 03/28/17 20:14; Admin Dose 75 MLS/HR; Start 03/28/17 at 20:00 Hydralazine HCl (Apresoline) 25 mg TID PO Last administered on 04/01/17 12:17 ; Admin Dose 25 MG; Start 03/28/17 at 21:00 Hydralazine HCl (Apresoline) 10 mg Q4H PRN IV ELEVATED BLOOD PRESSURE Last administered on 03/28/17 17:51; Admin Dose 10 MG; Start 03/28/17 at 17:00 VIV KING Apr 01, 2017 18:51
[2017-04-01] MEDS ORDERED: SOD CHLORIDE 0.9% 250 ML IV* ONE (18:52)
[2017-04-01] MEDS: VANCOMYCIN 750 MG in DEXTROSE 5% 150 ML IVPB SCH (20:39)
[2017-04-01] MEDS: ATORVASTATIN 40 MG TAB PO SCH (20:43)
[2017-04-02] VITALS (20 sets, daily range): BP systolic 120–162; BP diastolic 64–75; PULSE 69–73; RESP 18–20
[2017-04-02] MEDS: ACCU-CHEK XX SCH (01:29)
[2017-04-02] MEDS: INSULIN ASPART [NOVOLOG] 3 ML PEN SC SCH ×4 (07:55→20:28)
[2017-04-02] MEDS: CLOPIDOGREL 75 MG TAB PO SCH (08:08)
[2017-04-02] MEDS: DOCUSATE SODIUM 100 MG CAP PO SCH (08:09)
[2017-04-02] MEDS: CALCIUM ACETATE 667 MG CAP PO SCH ×3 (08:09→17:13)
[2017-04-02] MEDS: CINACALCET 30 MG TAB PO SCH ×2 (08:09→20:19)
[2017-04-02] MEDS: SEVELAMER 800 MG TAB PO SCH ×3 (08:09→17:13)
[2017-04-02] MEDS: AMLODIPINE 5 MG TAB PO SCH ×2 (08:10→20:19)
[2017-04-02] MEDS: LOSARTAN 25 MG TAB PO SCH (08:10)
--- NOTE | 2017-04-02 14:29 | CONS ---
Date/Time of Note Date/Time of Note DATE: 04/02/17 TIME: 14:28 Assessment/Plan Assessment/Plan Chief Complaint/Hosp Course No acute changes overnight, awake, looks comfortable Antimicrobials: Vanco Rocephin Indwelling's: Left upper extremity AV fistula Physical examination: well-developed elderly man who is in no distress. Head atraumatic normocephalic sclerae anicteric neck is supple chest rise symmetrical breath sounds diminished bases. Heart: S1-S2. Abdomen soft bowel sounds present, extremities with left foot dry gangrene Assessment: 1. SIRS 2. L foot gangrene 3. ESRD 4. Anemia 5. DM 6. Coronary artery disease status post permanent pacemaker placement 7. Severe peripheral vascular disease Plan: Clinically unchanged, no fevers, will dc abx and observe, cardiology, nephrology, vascular recommendations==> no surgical interventions planned Discussed with staff Problems: Consultation Date/Type/Reason Admit Date/Time Mar 24, 2017 at 14:04 Type of Consultation: ID Referring Provider: POLY THRASHER MD Exam/Review of Systems Vital Signs Vitals Vital Signs Date Time Temp Pulse Resp B/P Pulse Ox O2 Delivery O2 Flow Rate FiO2 04/02/17 12:02 69 04/02/17 11:30 14 04/02/17 11:14 98.2 143/70 96 03/31/17 20:00 Nasal Cannula 03/30/17 07:35 2.0 Intake and Output 04/01/17 04/01/17 04/02/17 15:00 23:00 07:00 Intake Total 1100 ml 120 ml Balance 1100 ml 120 ml Results Result Diagram: 04/01/17 0709 04/01/17 0709 Results 24 hrs Laboratory Tests Test 04/01/17 17:21 04/01/17 20:45 04/02/17 08:08 04/02/17 12:19 Bedside Glucose 91 158 86 123 Medications Medications Current Medications Diagnostic Test (Pha) (Accu-Chek) XX ; Start 03/25/17 at 02:00 Amlodipine Besylate (Norvasc) 5 mg BID PO Last administered on 04/01/17 20:43 ; Admin Dose 5 MG; Start 03/24/17 at 21:00 Atorvastatin Calcium (Lipitor) 40 mg HS PO Last administered on 04/01/17 20: 43; Admin Dose 40 MG; Start 03/24/17 at 21:00 Cinacalcet (Sensipar) 30 mg BID PO Last administered on 04/02/17 08:09; Admin Dose 30 MG; Start 03/24/17 at 21:00 Clopidogrel Bisulfate (plaVIX) 75 mg DAILY PO Last administered on 04/02/17 08:08; Admin Dose 75 MG; Start 03/25/17 at 09:00 Losartan Potassium (Cozaar) 25 mg DAILY PO Last administered on 04/01/17 08: 20; Admin Dose 25 MG; Start 03/25/17 at 09:00 Zolpidem Tartrate (Ambien) 5 mg QHS PRN PO INSOMNIA Last administered on 01:27; Admin Dose 5 MG; Start 03/24/17 at 20:00 Ondansetron HCl (Zofran Inj) 4 mg Q6H PRN IV NAUSEA AND/OR VOMITING; Start at 20:00 Acetaminophen (Tylenol Tab) 650 mg Q6H PRN PO PAIN AND OR ELEVATED TEMP; Start 03/24/17 at 20:00 Docusate Sodium (Colace) 100 mg DAILY PO Last administered on 03/31/17 08:47 ; Admin Dose 100 MG; Start 03/24/17 at 20:56 Al Hydrox/Mg Hydrox/Simethicone (Mag-Al Plus) 30 ml Q6H PRN PO GASTROINTESTINAL UPSET Last administered on 03/27/17 23:01; Admin Dose 30 ML; Start 03/24/17 at 21:00 Acetaminophen/ Hydrocodone Bitart ([place] (5/325)) 1 tab Q4H PRN PO PAIN Last administered on 03/31/17 14:43; Admin Dose 1 TAB; Start 03/25/17 at 03:06 Miscellaneous Information (Pending [facility] Order For Wound Care) This patient mckeon... PRN PRN XX WOUND CARE; Start 03/25/17 at 08:30 Morphine Sulfate (morphine) 2 mg Q3 PRN IV PAIN LEVEL 4-7 Last administered on 03/31/17 22:51; Admin Dose 2 MG; Start 03/25/17 at 12:00 Miscellaneous Information 1 ea NOTE XX ; Start 03/25/17 at 14:00 Glucose (Glutose) 15 gm Q15M PRN PO DECREASED GLUCOSE; Start 03/25/17 at 14:00 Glucose (Glutose) 22.5 gm Q15M PRN PO DECREASED GLUCOSE; Start 03/25/17 at 14: 00 Dextrose (D50w Syringe) 25 ml Q15M PRN IV DECREASED GLUCOSE; Start 03/25/17 at 14:00 Dextrose (D50w Syringe) 50 ml Q15M PRN IV DECREASED GLUCOSE; Start 03/25/17 at 14:00 Glucagon (Glucagen) 1 mg Q15M PRN IM DECREASED GLUCOSE; Start 03/25/17 at 14: 00 Glucose 15 gm 15 gm Q15M PRN BUCCAL DECREASED GLUCOSE; Start 03/25/17 at 14:00 Ceftriaxone Sodium 50 ml @ 100 mls/hr Q24H IVPB Last administered on 17:20; Admin Dose 100 MLS/HR; Start 03/26/17 at 17:00 Vancomycin HCl/ Dextrose/Water (Vancocin/D5W) 150 ml @ 75 mls/hr Q96H IVPB Last administered on 04/01/17 20:39; Admin Dose 75 MLS/HR; Start 03/28/17 at 20:00 Hydralazine HCl (Apresoline) 25 mg TID PO Last administered on 04/02/17 12:18 ; Admin Dose 25 MG; Start 03/28/17 at 21:00 Hydralazine HCl (Apresoline) 10 mg Q4H PRN IV ELEVATED BLOOD PRESSURE Last administered on 03/28/17 17:51; Admin Dose 10 MG; Start 03/28/17 at 17:00 SHITAL MCKEON NP Apr 02, 2017 14:29
--- NOTE | 2017-04-02 14:47 | CONS ---
Date/Time of Note Date/Time of Note DATE: 04/02/17 TIME: 14:46 Assessment/Plan Assessment/Plan Additional Assessment/Plan 61 yo Male with 1) Chest pain, CAD 2) Uncontrolled HTN 3) ESRD on HD 4) Dm With Renal Complication, ESRD 5) Anemia, Chronic, CKD 6) MBD, CKD S/p HD today HD MWF BP Controlled Pain Controlled. Cont current Rx and plan. Consultation Date/Type/Reason Admit Date/Time Mar 24, 2017 at 14:04 Type of Consultation: Renal Referring Provider: POLY THRASHER MD 24 HR Interval Summary Free Text/Dictation S/p HD no complication Constitutional: No requiring O2 Exam/Review of Systems Vital Signs Vitals Vital Signs Date Time Temp Pulse Resp B/P Pulse Ox O2 Delivery O2 Flow Rate FiO2 04/02/17 12:02 69 04/02/17 11:30 14 04/02/17 11:14 98.2 143/70 96 03/31/17 20:00 Nasal Cannula 03/30/17 07:35 2.0 Intake and Output 04/01/17 04/01/17 04/02/17 15:00 23:00 07:00 Intake Total 1100 ml 120 ml Balance 1100 ml 120 ml Exam Constitutional: No distress ENMT: mucosa pink and moist Respiratory: No labored breathing Cardiovascular: regular rate and rhythm, No edema Gastrointestinal: non-tender, soft Neurological: nl mental status, No lethargic Results Result Diagram: 04/01/17 0709 04/01/17 0709 Results 24 hrs Laboratory Tests Test 04/01/17 17:21 04/01/17 20:45 04/02/17 08:08 04/02/17 12:19 Bedside Glucose 91 158 86 123 Medications Medications Current Medications Diagnostic Test (Pha) (Accu-Chek) 1 ea 02 XX ; Start 03/25/17 at 02:00 Amlodipine Besylate (Norvasc) 5 mg BID PO Last administered on 04/01/17 20:43 ; Admin Dose 5 MG; Start 03/24/17 at 21:00 Atorvastatin Calcium (Lipitor) 40 mg HS PO Last administered on 04/01/17 20: 43; Admin Dose 40 MG; Start 03/24/17 at 21:00 Cinacalcet (Sensipar) 30 mg BID PO Last administered on 04/02/17 08:09; Admin Dose 30 MG; Start 03/24/17 at 21:00 Clopidogrel Bisulfate (plaVIX) 75 mg DAILY PO Last administered on 04/02/17 08:08; Admin Dose 75 MG; Start 03/25/17 at 09:00 Losartan Potassium (Cozaar) 25 mg DAILY PO Last administered on 04/01/17 08: 20; Admin Dose 25 MG; Start 03/25/17 at 09:00 Zolpidem Tartrate (Ambien) 5 mg QHS PRN PO INSOMNIA Last administered on 01:27; Admin Dose 5 MG; Start 03/24/17 at 20:00 Ondansetron HCl (Zofran Inj) 4 mg Q6H PRN IV NAUSEA AND/OR VOMITING; Start at 20:00 Acetaminophen (Tylenol Tab) 650 mg Q6H PRN PO PAIN AND OR ELEVATED TEMP; Start 03/24/17 at 20:00 Docusate Sodium (Colace) 100 mg DAILY PO Last administered on 03/31/17 08:47 ; Admin Dose 100 MG; Start 03/24/17 at 20:56 Al Hydrox/Mg Hydrox/Simethicone (Mag-Al Plus) 30 ml Q6H PRN PO GASTROINTESTINAL UPSET Last administered on 03/27/17 23:01; Admin Dose 30 ML; Start 03/24/17 at 21:00 Acetaminophen/ Hydrocodone Bitart ([place] (5/325)) 1 tab Q4H PRN PO PAIN Last administered on 03/31/17 14:43; Admin Dose 1 TAB; Start 03/25/17 at 03:06 Miscellaneous Information (Pending [facility] Order For Wound Care) This patient mckeon... PRN PRN XX WOUND CARE; Start 03/25/17 at 08:30 Morphine Sulfate (morphine) 2 mg Q3 PRN IV PAIN LEVEL 4-7 Last administered on 03/31/17 22:51; Admin Dose 2 MG; Start 03/25/17 at 12:00 Miscellaneous Information 1 ea NOTE XX ; Start 03/25/17 at 14:00 Glucose (Glutose) 15 gm Q15M PRN PO DECREASED GLUCOSE; Start 03/25/17 at 14:00 Glucose (Glutose) 22.5 gm Q15M PRN PO DECREASED GLUCOSE; Start 03/25/17 at 14: 00 Dextrose (D50w Syringe) 25 ml Q15M PRN IV DECREASED GLUCOSE; Start 03/25/17 at 14:00 Dextrose (D50w Syringe) 50 ml Q15M PRN IV DECREASED GLUCOSE; Start 03/25/17 at 14:00 Glucagon (Glucagen) 1 mg Q15M PRN IM DECREASED GLUCOSE; Start 03/25/17 at 14: 00 Glucose (Glutose) 15 gm Q15M PRN BUCCAL DECREASED GLUCOSE; Start 03/25/17 at 14:00 Hydralazine HCl (Apresoline) 25 mg TID PO Last administered on 04/02/17 12:18 ; Admin Dose 25 MG; Start 03/28/17 at 21:00 Hydralazine HCl (Apresoline) 10 mg Q4H PRN IV ELEVATED BLOOD PRESSURE Last administered on 03/28/17 17:51; Admin Dose 10 MG; Start 03/28/17 at 17:00 PIPER FELIX MD Apr 02, 2017 14:47
--- NOTE | 2017-04-02 17:03 | PN ---
Date/Time of Note Date/Time of Note DATE: 04/02/17 TIME: 16:59 Assessment/Plan VTE Prophylaxis VTE Prophylaxis Intervention: SCD's Lines/Catheters IV Catheter Type (from [facility]): [facility] Lock Urinary Cath still in place: No Assessment/Plan Chief Complaint/Hosp Course Hemoglobin is 9.1 status post transfusion with hemodialysis yesterday, patient denies any chest pain, sinus rhythm on telemetry will transfer to medical surgical floor, plan of care d/w vascular, no interventions planed. D/c planning , pt refused to go to [facility], for SNIF placement. Assessment/Plan - Acute hypoxemic respiratory failure secondary to CHF exacerbation, continue to remove fluids with hemodialysis - End-stage renal disease, hemodialysis dependent. Dr. Newby is following in nephrology consultation. Continue on hemodialysis. - Left foot gangrenous wounds, continue antibiotics per ID. Dr. Tobias is following in infection disease consultation. - Systemic inflammatory response syndrome secondary to gangrene of the left foot - Hypertension. Continue home antihypertensive medication. Monitor blood pressure. - CAD - Permanent Pacemaker, Dr. Wagner is following in cardiology consultation - Legally blind status. - Anemia of chronic disease. - Severe peripheral vascular disease with severe infrapopliteal disease and pedal disease. Further recommendations based on clinical course. Plan of care discussed with Dr. French. Problems: Exam/Review of Systems Vital Signs Vitals Vital Signs Date Time Temp Pulse Resp B/P Pulse Ox O2 Delivery O2 Flow Rate FiO2 04/02/17 16:11 73 04/02/17 15:19 97.8 20 162/72 98 03/31/17 20:00 Nasal Cannula 03/30/17 07:35 2.0 Intake and Output 04/01/17 04/01/17 04/02/17 15:00 23:00 07:00 Intake Total 1100 ml 120 ml Balance 1100 ml 120 ml Exam Constitutional: alert, oriented Eyes: other (Blind) Respiratory: clear to auscultation Cardiovascular: nl pulses, PPM right groin Gastrointestinal: non-tender, soft Musculoskeletal: nl extremities to inspection Extremities: normal pulses, other (Left foot gangrenous wounds) Results Result Diagram: 04/01/17 0709 04/01/17 0709 Results 24 hrs Laboratory Tests Test 04/01/17 17:21 04/01/17 20:45 04/02/17 08:08 04/02/17 12:19 Bedside Glucose 91 158 86 123 Medications Medications Current Medications Diagnostic Test (Pha) (Accu-Chek) XX ; Start 03/25/17 at 02:00 Amlodipine Besylate (Norvasc) 5 mg BID PO Last administered on 04/01/17 20:43 ; Admin Dose 5 MG; Start 03/24/17 at 21:00 Atorvastatin Calcium (Lipitor) 40 mg HS PO Last administered on 04/01/17 20: 43; Admin Dose 40 MG; Start 03/24/17 at 21:00 Cinacalcet (Sensipar) 30 mg BID PO Last administered on 04/02/17 08:09; Admin Dose 30 MG; Start 03/24/17 at 21:00 Clopidogrel Bisulfate (plaVIX) 75 mg DAILY PO Last administered on 04/02/17 08:08; Admin Dose 75 MG; Start 03/25/17 at 09:00 Losartan Potassium (Cozaar) 25 mg DAILY PO Last administered on 04/01/17 08: 20; Admin Dose 25 MG; Start 03/25/17 at 09:00 Zolpidem Tartrate (Ambien) 5 mg QHS PRN PO INSOMNIA Last administered on 01:27; Admin Dose 5 MG; Start 03/24/17 at 20:00 Ondansetron HCl (Zofran Inj) 4 mg Q6H PRN IV NAUSEA AND/OR VOMITING; Start at 20:00 Acetaminophen (Tylenol Tab) 650 mg Q6H PRN PO PAIN AND OR ELEVATED TEMP; Start 03/24/17 at 20:00 Docusate Sodium (Colace) 100 mg DAILY PO Last administered on 03/31/17 08:47 ; Admin Dose 100 MG; Start 03/24/17 at 20:56 Al Hydrox/Mg Hydrox/Simethicone (Mag-Al Plus) 30 ml Q6H PRN PO GASTROINTESTINAL UPSET Last administered on 03/27/17 23:01; Admin Dose 30 ML; Start 03/24/17 at 21:00 Acetaminophen/ Hydrocodone Bitart ([place] (5/325)) 1 tab Q4H PRN PO PAIN Last administered on 03/31/17 14:43; Admin Dose 1 TAB; Start 03/25/17 at 03:06 Miscellaneous Information (Pending [facility] Order For Wound Care) This patient mckeon... PRN PRN XX WOUND CARE; Start 03/25/17 at 08:30 Morphine Sulfate (morphine) 2 mg Q3 PRN IV PAIN LEVEL 4-7 Last administered on 03/31/17 22:51; Admin Dose 2 MG; Start 03/25/17 at 12:00 Miscellaneous Information 1 ea NOTE XX ; Start 03/25/17 at 14:00 Glucose (Glutose) 15 gm Q15M PRN PO DECREASED GLUCOSE; Start 03/25/17 at 14:00 Glucose (Glutose) 22.5 gm Q15M PRN PO DECREASED GLUCOSE; Start 03/25/17 at 14: 00 Dextrose (D50w Syringe) 25 ml Q15M PRN IV DECREASED GLUCOSE; Start 03/25/17 at 14:00 Dextrose (D50w Syringe) 50 ml Q15M PRN IV DECREASED GLUCOSE; Start 03/25/17 at 14:00 Glucagon (Glucagen) 1 mg Q15M PRN IM DECREASED GLUCOSE; Start 03/25/17 at 14: 00 Glucose (Glutose) 15 gm Q15M PRN BUCCAL DECREASED GLUCOSE; Start 03/25/17 at 14:00 Hydralazine HCl (Apresoline) 25 mg TID PO Last administered on 04/02/17 12:18 ; Admin Dose 25 MG; Start 03/28/17 at 21:00 Hydralazine HCl (Apresoline) 10 mg Q4H PRN IV ELEVATED BLOOD PRESSURE Last administered on 03/28/17 17:51; Admin Dose 10 MG; Start 03/28/17 at 17:00 VIV KING Apr 02, 2017 17:03
[2017-04-02] MEDS ORDERED: DIPHENHYDRAMINE 25 MG CAP PO PRN (17:30)
[2017-04-02] MEDS: ATORVASTATIN 40 MG TAB PO SCH (20:18)
[2017-04-03] VITALS (8 sets, daily range): BP systolic 145–175; BP diastolic 72–75; PULSE 66–74; RESP 18–19
[2017-04-03] MEDS: ACCU-CHEK XX SCH (02:00)
[2017-04-03 07:28] LABS: BASOPHIL # 0.1 10^3/ul (0.0-0.1); BASOPHILS % 0.6 % (0.0-2.0); EOSINOPHILS # 0.1 10^3/ul (0.0-0.5); EOSINOPHILS % 1.4 % (0.0-7.0); HEMATOCRIT 28.1 % (42.0-52.0); HEMOGLOBIN 9.1 g/dl (14.0-18.0); LYMPHOCYTES # 0.9 10^3/ul (0.8-2.9); LYMPHOCYTES % 10.8 % (15.0-51.0); MEAN CORPUSCULAR HEMOGLOBIN 26.4 pg (29.0-33.0); MEAN CORPUSCULAR HGB CONC 32.4 g/dl (32.0-37.0); MEAN CORPUSCULAR VOLUME 81.4 fl (82.0-101.0); MEAN PLATELET VOLUME 9.4 fl (7.4-10.4); MONOCYTE # 0.9 10^3/ul (0.3-0.9); MONOCYTES % 11.1 % (0.0-11.0); NEUTROPHIL # 6.3 10^3/ul (1.6-7.5); NEUTROPHILS % 75.7 % (39.0-77.0); PLATELET COUNT 266 10^3/UL (140-415); RED BLOOD COUNT 3.45 10^6/ul (4.70-6.10); RED CELL DISTRIBUTION WIDTH 18.9 % (11.5-14.5); WHITE BLOOD COUNT 8.4 10^3/ul (4.8-10.8)
[2017-04-03] MEDS: INSULIN ASPART [NOVOLOG] 3 ML PEN SC SCH ×4 (07:55→20:54)
[2017-04-03 08:14] LABS: CALCIUM 8.4 mg/dl (8.4-10.2); CREATININE 5.79 mg/dl (0.61-1.24); POTASSIUM 4.7 mmol/L (3.5-5.1)
--- NOTE | 2017-04-03 08:34 | CONS ---
Date/Time of Note Date/Time of Note DATE: 04/03/17 TIME: 08:33 Assessment/Plan Assessment/Plan Additional Assessment/Plan 61 yo Male with 1) Chest pain, CAD 2) Uncontrolled HTN 3) ESRD on HD 4) Dm With Renal Complication, ESRD 5) Anemia, Chronic, CKD 6) MBD, CKD S/p HD yesterday HD MWF BP Controlled Pain Controlled. Cont current Rx and plan. Consultation Date/Type/Reason Admit Date/Time Mar 24, 2017 at 14:04 Type of Consultation: Renal Referring Provider: POLY THRASHER MD 24 HR Interval Summary Free Text/Dictation No new complaints, S/p HD yesterday Constitutional: No requiring O2 Exam/Review of Systems Vital Signs Vitals Vital Signs Date Time Temp Pulse Resp B/P Pulse Ox O2 Delivery O2 Flow Rate FiO2 04/03/17 08:00 72 04/03/17 07:10 98.0 18 145/75 97 03/31/17 20:00 Nasal Cannula 03/30/17 07:35 2.0 Intake and Output 04/02/17 04/02/17 04/03/17 15:00 23:00 07:00 Intake Total 750 ml 720 ml 120 ml Output Total 3000 ml Balance -2250 ml 720 ml 120 ml Exam Constitutional: alert, oriented, No distress ENMT: mucosa pink and moist Neck: No jvd Respiratory: No diminished breath sounds, No labored breathing Cardiovascular: regular rate and rhythm, No edema Gastrointestinal: soft Extremities: No edema Neurological: nl mental status, No lethargic Skin: No diaphoresis Results Result Diagram: 04/03/17 0628 04/03/1728 Results 24 hrs Laboratory Tests Test 04/02/17 12:19 04/02/17 17:14 04/02/17 20:22 04/03/17 06:28 Bedside Glucose 123 91 124 White Blood Count 8.4 # Red Blood Count 3.45 L Hemoglobin 9.1 #L Hematocrit 28.1 L Mean Corpuscular Volume 81.4 L Mean Corpuscular Hemoglobin 26.4 L Mean Corpuscular Hemoglobin Concent 32.4 Red Cell Distribution Width 18.9 H Platelet Count 266 Mean Platelet Volume 9.4 Neutrophils % 75.7 Lymphocytes % 10.8 L Monocytes % 11.1 H Eosinophils % 1.4 Basophils % 0.6 Nucleated Red Blood Cells % 0.0 Neutrophils # 6.3 Lymphocytes # 0.9 Monocytes # 0.9 Eosinophils # 0.1 Basophils # 0.1 Nucleated Red Blood Cells # 0.0 Sodium Level 136 Potassium Level 4.7 Chloride Level 94 L Carbon Dioxide Level 29 Anion Gap 18 H Blood Urea Nitrogen 47 H Creatinine 5.79 H Glucose Level 70 Calcium Level 8.4 Test 04/03/17 08:12 Bedside Glucose 81 Medications Medications Current Medications Diagnostic Test (Pha) (Accu-Chek) 1 ea 02 XX ; Start 03/25/17 at 02:00 Amlodipine Besylate (Norvasc) 5 mg BID PO Last administered on 04/02/17 20:19 ; Admin Dose 5 MG; Start 03/24/17 at 21:00 Atorvastatin Calcium (Lipitor) 40 mg HS PO Last administered on 04/02/17 20: 18; Admin Dose 40 MG; Start 03/24/17 at 21:00 Cinacalcet (Sensipar) 30 mg BID PO Last administered on 04/02/17 20:19; Admin Dose 30 MG; Start 03/24/17 at 21:00 Clopidogrel Bisulfate (plaVIX) 75 mg DAILY PO Last administered on 04/02/17 08:08; Admin Dose 75 MG; Start 03/25/17 at 09:00 Losartan Potassium (Cozaar) 25 mg DAILY PO Last administered on 04/01/17 08: 20; Admin Dose 25 MG; Start 03/25/17 at 09:00 Zolpidem Tartrate (Ambien) 5 mg QHS PRN PO INSOMNIA Last administered on 01:27; Admin Dose 5 MG; Start 03/24/17 at 20:00 Ondansetron HCl (Zofran Inj) 4 mg Q6H PRN IV NAUSEA AND/OR VOMITING; Start at 20:00 Acetaminophen (Tylenol Tab) 650 mg Q6H PRN PO PAIN AND OR ELEVATED TEMP; Start 03/24/17 at 20:00 Docusate Sodium (Colace) 100 mg DAILY PO Last administered on 03/31/17 08:47 ; Admin Dose 100 MG; Start 03/24/17 at 20:56 Al Hydrox/Mg Hydrox/Simethicone (Mag-Al Plus) 30 ml Q6H PRN PO GASTROINTESTINAL UPSET Last administered on 03/27/17 23:01; Admin Dose 30 ML; Start 03/24/17 at 21:00 Acetaminophen/ Hydrocodone Bitart ([place] (5/325)) 1 tab Q4H PRN PO PAIN Last administered on 03/31/17 14:43; Admin Dose 1 TAB; Start 03/25/17 at 03:06 Miscellaneous Information (Pending Santyl Order For Wound Care) This patient mckeon... PRN PRN XX WOUND CARE; Start 03/25/17 at 08:30 Morphine Sulfate (morphine) 2 mg Q3 PRN IV PAIN LEVEL 4-7 Last administered on 03/31/17 22:51; Admin Dose 2 MG; Start 03/25/17 at 12:00 Miscellaneous Information 1 ea NOTE XX ; Start 03/25/17 at 14:00 Glucose (Glutose) 15 gm Q15M PRN PO DECREASED GLUCOSE; Start 03/25/17 at 14:00 Glucose (Glutose) 22.5 gm Q15M PRN PO DECREASED GLUCOSE; Start 03/25/17 at 14: 00 Dextrose (D50w Syringe) 25 ml Q15M PRN IV DECREASED GLUCOSE; Start 03/25/17 at 14:00 Dextrose (D50w Syringe) 50 ml Q15M PRN IV DECREASED GLUCOSE; Start 03/25/17 at 14:00 Glucagon (Glucagen) 1 mg Q15M PRN IM DECREASED GLUCOSE; Start 03/25/17 at 14: 00 Glucose (Glutose) 15 gm Q15M PRN BUCCAL DECREASED GLUCOSE; Start 03/25/17 at 14:00 Hydralazine HCl (Apresoline) 25 mg TID PO Last administered on 04/02/17 20:18 ; Admin Dose 25 MG; Start 03/28/17 at 21:00 Hydralazine HCl (Apresoline) 10 mg Q4H PRN IV ELEVATED BLOOD PRESSURE Last administered on 03/28/17 17:51; Admin Dose 10 MG; Start 03/28/17 at 17:00 Diphenhydramine HCl (Benadryl) 25 mg Q6H PRN PO ITCHING; Start 04/02/17 at 17: 30 PIPER FELIX MD Apr 03, 2017 08:34
[2017-04-03] MEDS: DOCUSATE SODIUM 100 MG CAP PO SCH (09:00)
[2017-04-03] MEDS: CLOPIDOGREL 75 MG TAB PO SCH (09:13)
[2017-04-03] MEDS: SEVELAMER 800 MG TAB PO SCH ×3 (09:13→17:22)
[2017-04-03] MEDS: AMLODIPINE 5 MG TAB PO SCH ×2 (09:15→20:49)
[2017-04-03] MEDS: CALCIUM ACETATE 667 MG CAP PO SCH ×3 (09:15→17:23)
[2017-04-03] MEDS: CINACALCET 30 MG TAB PO SCH ×2 (09:15→20:48)
[2017-04-03] MEDS: LOSARTAN 25 MG TAB PO SCH (09:16)
--- NOTE | 2017-04-03 11:29 | CONS ---
Date/Time of Note Date/Time of Note DATE: 04/03/17 TIME: 11:28 Assessment/Plan Assessment/Plan Chief Complaint/Hosp Course No acute changes overnight, awake, looks comfortable Indwelling's: Left upper extremity AV fistula Physical examination: well-developed elderly man who is in no distress. Head atraumatic normocephalic sclerae anicteric neck is supple chest rise symmetrical breath sounds diminished bases. Heart: S1-S2. Abdomen soft bowel sounds present, extremities with left foot dry gangrene Assessment: 1. S/p SIRS 2. L foot dry gangrene 3. ESRD 4. Anemia 5. DM 6. Coronary artery disease status post permanent pacemaker placement 7. Severe peripheral vascular disease Plan: Clinically unchanged, no fevers, off abx, f/u cardiology, nephrology, vascular recommendations==> no surgical interventions planned Discussed with staff Problems: Consultation Date/Type/Reason Admit Date/Time Mar 24, 2017 at 14:04 Type of Consultation: id Referring Provider: POLY THRASHER MD Exam/Review of Systems Vital Signs Vitals Vital Signs Date Time Temp Pulse Resp B/P Pulse Ox O2 Delivery O2 Flow Rate FiO2 04/03/17 08:00 72 04/03/17 07:10 98.0 18 145/75 97 03/31/17 20:00 Nasal Cannula 03/30/17 07:35 2.0 Intake and Output 04/02/17 04/02/17 04/03/17 15:00 23:00 07:00 Intake Total 750 ml 720 ml 120 ml Output Total 3000 ml Balance -2250 ml 720 ml 120 ml Results Result Diagram: 04/03/17 0628 04/03/17 0628 Results 24 hrs Laboratory Tests Test 04/02/17 12:19 04/02/17 17:14 04/02/17 20:22 04/03/17 06:28 Bedside Glucose 123 91 124 White Blood Count 8.4 # Red Blood Count 3.45 L Hemoglobin 9.1 #L Hematocrit 28.1 L Mean Corpuscular Volume 81.4 L Mean Corpuscular Hemoglobin 26.4 L Mean Corpuscular Hemoglobin Concent 32.4 Red Cell Distribution Width 18.9 H Platelet Count 266 Mean Platelet Volume 9.4 Neutrophils % 75.7 Lymphocytes % 10.8 L Monocytes % 11.1 H Eosinophils % 1.4 Basophils % 0.6 Nucleated Red Blood Cells % 0.0 Neutrophils # 6.3 Lymphocytes # 0.9 Monocytes # 0.9 Eosinophils # 0.1 Basophils # 0.1 Nucleated Red Blood Cells # 0.0 Sodium Level 136 Potassium Level 4.7 Chloride Level 94 L Carbon Dioxide Level 29 Anion Gap 18 H Blood Urea Nitrogen 47 H Creatinine 5.79 H Glucose Level 70 Calcium Level 8.4 Test 04/03/17 08:12 Bedside Glucose 81 Medications Medications Current Medications Diagnostic Test (Pha) (Accu-Chek) 1 ea 02 XX ; Start 03/25/17 at 02:00 Amlodipine Besylate (Norvasc) 5 mg BID PO Last administered on 04/03/17 09:15 ; Admin Dose 5 MG; Start 03/24/17 at 21:00 Atorvastatin Calcium (Lipitor) 40 mg HS PO Last administered on 04/02/17 20: 18; Admin Dose 40 MG; Start 03/24/17 at 21:00 Cinacalcet (Sensipar) 30 mg BID PO Last administered on 04/03/17 09:15; Admin Dose 30 MG; Start 03/24/17 at 21:00 Clopidogrel Bisulfate (plaVIX) 75 mg DAILY PO Last administered on 04/03/17 09:13; Admin Dose 75 MG; Start 03/25/17 at 09:00 Losartan Potassium (Cozaar) 25 mg DAILY PO Last administered on 04/03/17 09: 16; Admin Dose 25 MG; Start 03/25/17 at 09:00 Zolpidem Tartrate (Ambien) 5 mg QHS PRN PO INSOMNIA Last administered on 01:27; Admin Dose 5 MG; Start 03/24/17 at 20:00 Ondansetron HCl (Zofran Inj) 4 mg Q6H PRN IV NAUSEA AND/OR VOMITING; Start at 20:00 Acetaminophen (Tylenol Tab) 650 mg Q6H PRN PO PAIN AND OR ELEVATED TEMP; Start 03/24/17 at 20:00 Docusate Sodium (Colace) 100 mg DAILY PO Last administered on 03/31/17 08:47 ; Admin Dose 100 MG; Start 03/24/17 at 20:56 Al Hydrox/Mg Hydrox/Simethicone (Mag-Al Plus) 30 ml Q6H PRN PO GASTROINTESTINAL UPSET Last administered on 03/27/17 23:01; Admin Dose 30 ML; Start 03/24/17 at 21:00 Acetaminophen/ Hydrocodone Bitart ([place] (5/325)) 1 tab Q4H PRN PO PAIN Last administered on 03/31/17 14:43; Admin Dose 1 TAB; Start 03/25/17 at 03:06 Miscellaneous Information (Pending Santyl Order For Wound Care) This patient mckeon... PRN PRN XX WOUND CARE; Start 03/25/17 at 08:30 Morphine Sulfate (morphine) 2 mg Q3 PRN IV PAIN LEVEL 4-7 Last administered on 03/31/17 22:51; Admin Dose 2 MG; Start 03/25/17 at 12:00 Miscellaneous Information 1 ea NOTE XX ; Start 03/25/17 at 14:00 Glucose (Glutose) 15 gm Q15M PRN PO DECREASED GLUCOSE; Start 03/25/17 at 14:00 Glucose (Glutose) 22.5 gm Q15M PRN PO DECREASED GLUCOSE; Start 03/25/17 at 14: 00 Dextrose (D50w Syringe) 25 ml Q15M PRN IV DECREASED GLUCOSE; Start 03/25/17 at 14:00 Dextrose (D50w Syringe) 50 ml Q15M PRN IV DECREASED GLUCOSE; Start 03/25/17 at 14:00 Glucagon (Glucagen) 1 mg Q15M PRN IM DECREASED GLUCOSE; Start 03/25/17 at 14: 00 Glucose (Glutose) 15 gm Q15M PRN BUCCAL DECREASED GLUCOSE; Start 03/25/17 at 14:00 Hydralazine HCl (Apresoline) 25 mg TID PO Last administered on 04/03/17 09:14 ; Admin Dose 25 MG; Start 03/28/17 at 21:00 Hydralazine HCl (Apresoline) 10 mg Q4H PRN IV ELEVATED BLOOD PRESSURE Last administered on 03/28/17 17:51; Admin Dose 10 MG; Start 03/28/17 at 17:00 Diphenhydramine HCl (Benadryl) 25 mg Q6H PRN PO ITCHING; Start 04/02/17 at 17: 30 SHITAL MCKEON NP Apr 03, 2017 11:29
[2017-04-03] MEDS: ATORVASTATIN 40 MG TAB PO SCH (20:49)
[2017-04-04] VITALS (11 sets, daily range): BP systolic 94–165; BP diastolic 54–87; PULSE 64–80; RESP 20–21
[2017-04-04] MEDS: ACCU-CHEK XX SCH (01:29)
[2017-04-04 06:13] LABS: BASOPHIL # 0.1 10^3/ul (0.0-0.1); BASOPHILS % 0.6 % (0.0-2.0); EOSINOPHILS # 0.1 10^3/ul (0.0-0.5); EOSINOPHILS % 1.2 % (0.0-7.0); HEMATOCRIT 30.9 % (42.0-52.0); HEMOGLOBIN 9.8 g/dl (14.0-18.0); LYMPHOCYTES # 0.8 10^3/ul (0.8-2.9); LYMPHOCYTES % 9.2 % (15.0-51.0); MEAN CORPUSCULAR HEMOGLOBIN 25.9 pg (29.0-33.0); MEAN CORPUSCULAR HGB CONC 31.7 g/dl (32.0-37.0); MEAN CORPUSCULAR VOLUME 81.7 fl (82.0-101.0); MEAN PLATELET VOLUME 9.2 fl (7.4-10.4); MONOCYTE # 0.8 10^3/ul (0.3-0.9); MONOCYTES % 9.2 % (0.0-11.0); NEUTROPHIL # 6.8 10^3/ul (1.6-7.5); NEUTROPHILS % 79.4 % (39.0-77.0); PLATELET COUNT 305 10^3/UL (140-415); RED BLOOD COUNT 3.78 10^6/ul (4.70-6.10); RED CELL DISTRIBUTION WIDTH 18.6 % (11.5-14.5); WHITE BLOOD COUNT 8.6 10^3/ul (4.8-10.8)
[2017-04-04 07:07] LABS: CALCIUM 8.2 mg/dl (8.4-10.2); CREATININE 7.43 mg/dl (0.61-1.24); POTASSIUM 4.9 mmol/L (3.5-5.1)
[2017-04-04] MEDS: INSULIN ASPART [NOVOLOG] 3 ML PEN SC SCH ×3 (07:55→17:05)
[2017-04-04] MEDS: LOSARTAN 25 MG TAB PO SCH (09:00)
[2017-04-04] MEDS: DOCUSATE SODIUM 100 MG CAP PO SCH (09:00)
[2017-04-04] MEDS: AMLODIPINE 5 MG TAB PO SCH (09:00)
[2017-04-04] MEDS: CLOPIDOGREL 75 MG TAB PO SCH (09:06)
[2017-04-04] MEDS: CALCIUM ACETATE 667 MG CAP PO SCH ×3 (09:06→17:05)
[2017-04-04] MEDS: SEVELAMER 800 MG TAB PO SCH ×3 (09:06→17:05)
[2017-04-04] MEDS: CINACALCET 30 MG TAB PO SCH (09:06)
--- NOTE | 2017-04-04 12:02 | PN ---
Date/Time of Note Date/Time of Note DATE: 04/04/17 TIME: 12:01 Assessment/Plan VTE Prophylaxis VTE Prophylaxis Intervention: heparin Lines/Catheters IV C[facility] Type [facility] Urinary Cath still in place: No Assessment/Plan Chief Complaint/Hosp Course , pending blood transfusion with next HDF, plan of care d/w vascular, no interventions planed. D/c planning, [facility]. Assessment/Plan - Acute hypoxemic respiratory failure secondary to CHF exacerbation, continue to remove fluids with hemodialysis - End-stage renal disease, hemodialysis dependent. Dr. Newby is following in nephrology consultation. Continue on hemodialysis. - Left foot gangrenous wounds, continue antibiotics per ID. Dr. Tobias is following in infection disease consultation. - Systemic inflammatory response syndrome secondary to gangrene of the left foot - Hypertension. Continue home antihypertensive medication. Monitor blood pressure. - CAD - Permanent Pacemaker, Dr. Wagner is following in cardiology consultation - Legally blind status. - Anemia of chronic disease. - Severe peripheral vascular disease with severe infrapopliteal disease and pedal disease. Further recommendations based on clinical course. Plan of care discussed with Dr. French. Problems: Exam/Review of Systems Vital Signs Vitals Vital Signs Date Time Temp Pulse Resp B/P Pulse Ox O2 Delivery O2 Flow Rate FiO2 04/04/17 11:42 98.4 72 20 94/54 99 03/31/17 20:00 Nasal Cannula Intake and Output 04/03/17 04/03/17 04/04/17 15:00 23:00 07:00 Intake Total 250 ml 200 ml Balance 250 ml 200 ml Results Result Diagram: 04/04/17 0512 04/04/17 0512 Results 24 hrs Laboratory Tests Test 04/03/17 13:07 04/03/17 17:21 04/03/17 20:51 04/04/17 05:12 Bedside Glucose 109 113 101 White Blood Count 8.6 Red Blood Count 3.78 L Hemoglobin 9.8 L Hematocrit 30.9 L Mean Corpuscular Volume 81.7 L Mean Corpuscular Hemoglobin 25.9 L Mean Corpuscular Hemoglobin Concent 31.7 L Red Cell Distribution Width 18.6 H Platelet Count 305 Mean Platelet Volume 9.2 Neutrophils % 79.4 H Lymphocytes % 9.2 L Monocytes % 9.2 Eosinophils % 1.2 Basophils % 0.6 Nucleated Red Blood Cells % 0.0 Neutrophils # 6.8 Lymphocytes # 0.8 Monocytes # 0.8 Eosinophils # 0.1 Basophils # 0.1 Nucleated Red Blood Cells # 0.0 Sodium Level 135 Potassium Level 4.9 Chloride Level 92 L Carbon Dioxide Level 28 Anion Gap 20 H Blood Urea Nitrogen 61 H Creatinine 7.43 H Glucose Level 70 Calcium Level 8.2 L Test 04/04/17 08:26 Bedside Glucose 79 Medications Medications Current Medications Diagnostic Test (Pha) (Accu-Chek) 1 ea XX ; Start 03/25/17 at 02:00 Amlodipine Besylate (Norvasc) 5 mg BID PO Last administered on 04/03/17 20:49 ; Admin Dose 5 MG; Start 03/24/17 at 21:00 Atorvastatin Calcium (Lipitor) 40 mg HS PO Last administered on 04/03/17 20: 49; Admin Dose 40 MG; Start 03/24/17 at 21:00 Cinacalcet (Sensipar) 30 mg BID PO Last administered on 04/04/17 09:06; Admin Dose 30 MG; Start 03/24/17 at 21:00 Clopidogrel Bisulfate (plaVIX) 75 mg DAILY PO Last administered on 04/04/17 09 :06; Admin Dose 75 MG; Start 03/25/17 at 09:00 Losartan Potassium (Cozaar) 25 mg DAILY PO Last administered on 04/03/17 09: 16; Admin Dose 25 MG; Start 03/25/17 at 09:00 Zolpidem Tartrate (Ambien) 5 mg QHS PRN PO INSOMNIA Last administered on 01:27; Admin Dose 5 MG; Start 03/24/17 at 20:00 Ondansetron HCl (Zofran Inj) 4 mg Q6H PRN IV NAUSEA AND/OR VOMITING; Start at 20:00 Acetaminophen (Tylenol Tab) 650 mg Q6H PRN PO PAIN AND OR ELEVATED TEMP; Start 03/24/17 at 20:00 Docusate Sodium (Colace) 100 mg DAILY PO Last administered on 03/31/17 08:47 ; Admin Dose 100 MG; Start 03/24/17 at 20:56 Al Hydrox/Mg Hydrox/Simethicone (Mag-Al Plus) 30 ml Q6H PRN PO GASTROINTESTINAL UPSET Last administered on 03/27/17 23:01; Admin Dose 30 ML; Start 03/24/17 at 21:00 Acetaminophen/ Hydrocodone Bitart ([place] (5/325)) 1 tab Q4H PRN PO PAIN Last administered on 03/31/17 14:43; Admin Dose 1 TAB; Start 03/25/17 at 03:06 Miscellaneous Information (Pending [facility] Order For Wound Care) This patient mckeon... PRN PRN XX WOUND CARE; Start 03/25/17 at 08:30 Morphine Sulfate (morphine) 2 mg Q3 PRN IV PAIN LEVEL 4-7 Last administered on 03/31/17 22:51; Admin Dose 2 MG; Start 03/25/17 at 12:00 Miscellaneous Information 1 ea NOTE XX ; Start 03/25/17 at 14:00 Glucose (Glutose) 15 gm Q15M PRN PO DECREASED GLUCOSE; Start 03/25/17 at 14:00 Glucose (Glutose) 22.5 gm Q15M PRN PO DECREASED GLUCOSE; Start 03/25/17 at 14: 00 Dextrose (D50w Syringe) 25 ml Q15M PRN IV DECREASED GLUCOSE; Start 03/25/17 at 14:00 Dextrose (D50w Syringe) 50 ml Q15M PRN IV DECREASED GLUCOSE; Start 03/25/17 at 14:00 Glucagon (Glucagen) 1 mg Q15M PRN IM DECREASED GLUCOSE; Start 03/25/17 at 14: 00 Glucose (Glutose) 15 gm Q15M PRN BUCCAL DECREASED GLUCOSE; Start 03/25/17 at 14:00 Hydralazine HCl (Apresoline) 25 mg TID PO Last administered on 04/03/17 20:49 ; Admin Dose 25 MG; Start 03/28/17 at 21:00 Hydralazine HCl (Apresoline) 10 mg Q4H PRN IV ELEVATED BLOOD PRESSURE Last administered on 03/28/17 17:51; Admin Dose 10 MG; Start 03/28/17 at 17:00 Diphenhydramine HCl (Benadryl) 25 mg Q6H PRN PO ITCHING; Start 04/02/17 at 17: 30 VIV KING Apr 04, 2017 12:02
--- NOTE | 2017-04-04 12:04 | PN ---
Date/Time of Note Date/Time of Note DATE: late entry for 04/03 TIME: patient is seen at 14:00 on 04/03 Assessment/Plan VTE Prophylaxis VTE Prophylaxis Intervention: heparin Lines/Catheters IV [facility] Type [facility]from [facility] Urinary Cath still in place: No Assessment/Plan Chief Complaint/Hosp Course Hemoglobin is 9.1 status post transfusion with hemodialysis yesterday, patient denies any chest pain, sinus rhythm on telemetry will transfer to medical surgical floor, plan of care d/w vascular, no interventions planed. D/c planning , pt refused to go to [facility], for SNIF placement. Assessment/Plan - Acute hypoxemic respiratory failure secondary to CHF exacerbation, continue to remove fluids with hemodialysis - End-stage renal disease, hemodialysis dependent. Dr. Newby is following in nephrology consultation. Continue on hemodialysis. - Left foot gangrenous wounds, continue antibiotics per ID. Dr. Tobias is following in infection disease consultation. - Systemic inflammatory response syndrome secondary to gangrene of the left foot - Hypertension. Continue home antihypertensive medication. Monitor blood pressure. - CAD - Permanent Pacemaker, Dr. Wagner is following in cardiology consultation - Legally blind status. - Anemia of chronic disease. - Severe peripheral vascular disease with severe infrapopliteal disease and pedal disease. Further recommendations based on clinical course. Plan of care discussed with Dr. French. Problems: Exam/Review of Systems Vital Signs Vitals Vital Signs Date Time Temp Pulse Resp B/P Pulse Ox O2 Delivery O2 Flow Rate FiO2 04/04/17 11:42 98.4 72 20 94/54 99 03/31/17 20:00 Nasal Cannula Intake and Output 04/03/17 04/03/17 04/04/17 15:00 23:00 07:00 Intake Total 250 ml 200 ml Balance 250 ml 200 ml Exam Constitutional: alert, oriented Eyes: other (Blind) Respiratory: clear to auscultation Cardiovascular: nl pulses, PPM right groin Gastrointestinal: non-tender, soft Musculoskeletal: nl extremities to inspection Extremities: normal pulses, other (Left foot gangrenous wounds) Results Result Diagram: 04/04/1712 04/04/1712 Results 24 hrs Laboratory Tests Test 04/03/17 13:07 04/03/17 17:21 04/03/17 20:51 04/04/17 05:12 Bedside Glucose 109 113 101 White Blood Count 8.6 Red Blood Count 3.78 L Hemoglobin 9.8 L Hematocrit 30.9 L Mean Corpuscular Volume 81.7 L Mean Corpuscular Hemoglobin 25.9 L Mean Corpuscular Hemoglobin Concent 31.7 L Red Cell Distribution Width 18.6 H Platelet Count 305 Mean Platelet Volume 9.2 Neutrophils % 79.4 H Lymphocytes % 9.2 L Monocytes % 9.2 Eosinophils % 1.2 Basophils % 0.6 Nucleated Red Blood Cells % 0.0 Neutrophils # 6.8 Lymphocytes # 0.8 Monocytes # 0.8 Eosinophils # 0.1 Basophils # 0.1 Nucleated Red Blood Cells # 0.0 Sodium Level 135 Potassium Level 4.9 Chloride Level 92 L Carbon Dioxide Level 28 Anion Gap 20 H Blood Urea Nitrogen 61 H Creatinine 7.43 H Glucose Level 70 Calcium Level 8.2 L Test 04/04/17 08:26 Bedside Glucose 79 Medications Medications Current Medications Diagnostic Test (Pha) (Accu-Chek) 1 ea 02 XX ; Start 03/25/17 at 02:00 Amlodipine Besylate (Norvasc) 5 mg BID PO Last administered on 04/03/17 20:49 ; Admin Dose 5 MG; Start 03/24/17 at 21:00 Atorvastatin Calcium (Lipitor) 40 mg HS PO Last administered on 04/03/17 20: 49; Admin Dose 40 MG; Start 03/24/17 at 21:00 Cinacalcet (Sensipar) 30 mg BID PO Last administered on 04/04/17 09:06; Admin Dose 30 MG; Start 03/24/17 at 21:00 Clopidogrel Bisulfate (plaVIX) 75 mg DAILY PO Last administered on 04/04/17 09 :06; Admin Dose 75 MG; Start 03/25/17 at 09:00 Losartan Potassium (Cozaar) 25 mg DAILY PO Last administered on 04/03/17 09: 16; Admin Dose 25 MG; Start 03/25/17 at 09:00 Zolpidem Tartrate (Ambien) 5 mg QHS PRN PO INSOMNIA Last administered on 01:27; Admin Dose 5 MG; Start 03/24/17 at 20:00 Ondansetron HCl (Zofran Inj) 4 mg Q6H PRN IV NAUSEA AND/OR VOMITING; Start at 20:00 Acetaminophen (Tylenol Tab) 650 mg Q6H PRN PO PAIN AND OR ELEVATED TEMP; Start 03/24/17 at 20:00 Docusate Sodium (Colace) 100 mg DAILY PO Last administered on 03/31/17 08:47 ; Admin Dose 100 MG; Start 03/24/17 at 20:56 Al Hydrox/Mg Hydrox/Simethicone (Mag-Al Plus) 30 ml Q6H PRN PO GASTROINTESTINAL UPSET Last administered on 03/27/17 23:01; Admin Dose 30 ML; Start 03/24/17 at 21:00 Acetaminophen/ Hydrocodone Bitart ([place] (5/325)) 1 tab Q4H PRN PO PAIN Last administered on 03/31/17 14:43; Admin Dose 1 TAB; Start 03/25/17 at 03:06 Miscellaneous Information (Pending Santyl Order For Wound Care) This patient mckeon... PRN PRN XX WOUND CARE; Start 03/25/17 at 08:30 Morphine Sulfate (morphine) 2 mg Q3 PRN IV PAIN LEVEL 4-7 Last administered on 03/31/17 22:51; Admin Dose 2 MG; Start 03/25/17 at 12:00 Miscellaneous Information 1 ea NOTE XX ; Start 03/25/17 at 14:00 Glucose (Glutose) 15 gm Q15M PRN PO DECREASED GLUCOSE; Start 03/25/17 at 14:00 Glucose (Glutose) 22.5 gm Q15M PRN PO DECREASED GLUCOSE; Start 03/25/17 at 14: 00 Dextrose (D50w Syringe) 25 ml Q15M PRN IV DECREASED GLUCOSE; Start 03/25/17 at 14:00 Dextrose (D50w Syringe) 50 ml Q15M PRN IV DECREASED GLUCOSE; Start 03/25/17 at 14:00 Glucagon (Glucagen) 1 mg Q15M PRN IM DECREASED GLUCOSE; Start 03/25/17 at 14: 00 Glucose (Glutose) 15 gm Q15M PRN BUCCAL DECREASED GLUCOSE; Start 03/25/17 at 14:00 Hydralazine HCl (Apresoline) 25 mg TID PO Last administered on 04/03/17 20:49 ; Admin Dose 25 MG; Start 03/28/17 at 21:00 Hydralazine HCl (Apresoline) 10 mg Q4H PRN IV ELEVATED BLOOD PRESSURE Last administered on 03/28/17t 17:51; Admin Dose 10 MG; Start 03/28/17 at 17:00 Diphenhydramine HCl (Benadryl) 25 mg Q6H PRN PO ITCHING; Start 04/02/17 at 17: 30 VIV KING Apr 04, 2017 12:04
[2017-04-04] MEDS ORDERED: CLOP75TA28 PO (12:11)
[2017-04-04] MEDS ORDERED: BEN25 PO (12:11)
[2017-04-04] MEDS ORDERED: SEVE800T10 PO (12:11)
[2017-04-04] MEDS ORDERED: AMLO5TAB4 PO (12:11)
[2017-04-04] MEDS ORDERED: ATOR40TA68 PO (12:11)
[2017-04-04] MEDS ORDERED: CALC667C PO (12:11)
[2017-04-04] MEDS ORDERED: CNC30T PO (12:11)
[2017-04-04] MEDS ORDERED: LOSA25TA5 PO (12:11)
[2017-04-04] MEDS ORDERED: HYDR-3498 PO (12:11)
--- NOTE | 2017-04-04 12:50 | CONS ---
Date/Time of Note Date/Time of Note DATE: 04/04/17 TIME: 12:49 Assessment/Plan Assessment/Plan Chief Complaint/Hosp Course No acute changes overnight, awake, looks comfortable Indwelling's: Left upper extremity AV fistula Physical examination: well-developed elderly man who is in no distress. Head atraumatic normocephalic sclerae anicteric neck is supple chest rise symmetrical breath sounds diminished bases. Heart: S1-S2. Abdomen soft bowel sounds present, extremities with left foot dry gangrene Assessment: 1. S/p SIRS 2. L foot dry gangrene 3. ESRD 4. Anemia 5. DM 6. Coronary artery disease status post permanent pacemaker placement 7. Severe peripheral vascular disease Plan: Clinically unchanged, off antibiotics, f/u podiatry/vascular rec-s Discussed with staff Problems: Consultation Date/Type/Reason Admit Date/Time Mar 24, 2017 at 14:04 Type of Consultation: id Referring Provider: POLY THRASHER MD Exam/Review of Systems Vital Signs Vitals Vital Signs Date Time Temp Pulse Resp B/P Pulse Ox O2 Delivery O2 Flow Rate FiO2 04/04/17 11:42 98.4 72 20 94/54 99 03/31/17 20:00 Nasal Cannula Intake and Output 04/03/17 04/03/17 04/04/17 15:00 23:00 07:00 Intake Total 250 ml 200 ml Balance 250 ml 200 ml Results Result Diagram: 04/04/17 0512 04/04/17 0512 Results 24 hrs Laboratory Tests Test 04/03/17 13:07 04/03/17 17:21 04/03/17 20:51 04/04/17 05:12 Bedside Glucose 109 113 101 White Blood Count 8.6 Red Blood Count 3.78 L Hemoglobin 9.8 L Hematocrit 30.9 L Mean Corpuscular Volume 81.7 L Mean Corpuscular Hemoglobin 25.9 L Mean Corpuscular Hemoglobin Concent 31.7 L Red Cell Distribution Width 18.6 H Platelet Count 305 Mean Platelet Volume 9.2 Neutrophils % 79.4 H Lymphocytes % 9.2 L Monocytes % 9.2 Eosinophils % 1.2 Basophils % 0.6 Nucleated Red Blood Cells % 0.0 Neutrophils # 6.8 Lymphocytes # 0.8 Monocytes # 0.8 Eosinophils # 0.1 Basophils # 0.1 Nucleated Red Blood Cells # 0.0 Sodium Level 135 Potassium Level 4.9 Chloride Level 92 L Carbon Dioxide Level 28 Anion Gap 20 H Blood Urea Nitrogen 61 H Creatinine 7.43 H Glucose Level 70 Calcium Level 8.2 L Test 04/04/17 08:26 04/04/17 12:08 Bedside Glucose 79 100 Medications Medications Current Medications Diagnostic Test (Pha) (Accu-Chek) 1 ea 02 XX ; Start 03/25/17 at 02:00 Amlodipine Besylate (Norvasc) 5 mg BID PO Last administered on 04/03/17 20:49 ; Admin Dose 5 MG; Start 03/24/17 at 21:00 Atorvastatin Calcium (Lipitor) 40 mg HS PO Last administered on 04/03/17 20: 49; Admin Dose 40 MG; Start 03/24/17 at 21:00 Cinacalcet (Sensipar) 30 mg BID PO Last administered on 04/04/17 09:06; Admin Dose 30 MG; Start 03/24/17 at 21:00 Clopidogrel Bisulfate (plaVIX) 75 mg DAILY PO Last administered on 04/04/17 09 :06; Admin Dose 75 MG; Start 03/25/17 at 09:00 Losartan Potassium (Cozaar) 25 mg DAILY PO Last administered on 04/03/17 09: 16; Admin Dose 25 MG; Start 03/25/17 at 09:00 Zolpidem Tartrate (Ambien) 5 mg QHS PRN PO INSOMNIA Last administered on 01:27; Admin Dose 5 MG; Start 03/24/17 at 20:00 Ondansetron HCl (Zofran Inj) 4 mg Q6H PRN IV NAUSEA AND/OR VOMITING; Start at 20:00 Acetaminophen (Tylenol Tab) 650 mg Q6H PRN PO PAIN AND OR ELEVATED TEMP; Start 03/24/17 at 20:00 Docusate Sodium (Colace) 100 mg DAILY PO Last administered on 03/31/17 08:47 ; Admin Dose 100 MG; Start 03/24/17 at 20:56 Al Hydrox/Mg Hydrox/Simethicone (Mag-Al Plus) 30 ml Q6H PRN PO GASTROINTESTINAL UPSET Last administered on 03/27/17 23:01; Admin Dose 30 ML; Start 03/24/17 at 21:00 Acetaminophen/ Hydrocodone Bitart (Bay (5/325)) 1 tab Q4H PRN PO PAIN Last administered on 03/31/17 14:43; Admin Dose 1 TAB; Start 03/25/17 at 03:06 Miscellaneous Information (Pending Santyl Order For Wound Care) This patient mckeon... PRN PRN XX WOUND CARE; Start 03/25/17 at 08:30 Morphine Sulfate (morphine) 2 mg Q3 PRN IV PAIN LEVEL 4-7 Last administered on 03/31/17 22:51; Admin Dose 2 MG; Start 03/25/17 at 12:00 Miscellaneous Information 1 ea NOTE XX ; Start 03/25/17 at 14:00 Glucose (Glutose) 15 gm Q15M PRN PO DECREASED GLUCOSE; Start 03/25/17 at 14:00 Glucose (Glutose) 22.5 gm Q15M PRN PO DECREASED GLUCOSE; Start 03/25/17 at 14: 00 Dextrose (D50w Syringe) 25 ml Q15M PRN IV DECREASED GLUCOSE; Start 03/25/17 at 14:00 Dextrose (D50w Syringe) 50 ml Q15M PRN IV DECREASED GLUCOSE; Start 03/25/17 at 14:00 Glucagon (Glucagen) 1 mg Q15M PRN IM DECREASED GLUCOSE; Start 03/25/17 at 14: 00 Glucose (Glutose) 15 gm Q15M PRN BUCCAL DECREASED GLUCOSE; Start 03/25/17 at 14:00 Hydralazine HCl (Apresoline) 25 mg TID PO Last administered on 04/03/17 20:49 ; Admin Dose 25 MG; Start 03/28/17 at 21:00 Hydralazine HCl (Apresoline) 10 mg Q4H PRN IV ELEVATED BLOOD PRESSURE Last administered on 03/28/17 17:51; Admin Dose 10 MG; Start 03/28/17 at 17:00 Diphenhydramine HCl (Benadryl) 25 mg Q6H PRN PO ITCHING; Start 04/02/17 at 17: 30 SHITAL MCKEON NP Apr 04, 2017 12:50
--- NOTE | 2017-04-04 18:07 | DS ---
Date/Time of Note Date/Time of Note DATE: 04/04/17 TIME: 18:05 Discharge Summary Admission/Discharge Info Admit Date/Time Mar 24, 2017 at 14:04 Discharge Date/Time Patient Condition: Stable Hx of Present Illness This is a 61-year-old man with a history of hypertension, hyperlipidemia, diabetes, coronary artery disease, peripheral vascular disease status post previous stenting and currently on Plavix, end-stage renal disease on dialysis Friday//Friday, anemia of chronic disease, who is presenting with chest pain, dyspnea and hypoxia this morning. The patient stays at a custodial facility and his oxygen levels were found to be low. An ambulance was called for the patient to be evaluated for this. Upon composing machine operator arrival, they found his O2 sat to be 88% on room air. He was placed on 2 L, and this increased to 100%. His last dialysis was 2 days ago. Patient reports feeling generally unwell. This is chronic for him. He has horrible peripheral vascular disease with chronic chest pains and leg pains, especially in his left lower extremity where he has dry gangrene and necrosis of the left foot. This is been worked up in the past and does not appear infected today. The patient's pain is not worsened today, but he does note that it is exquisite. The patient denies fever or chills. The patient has had no headache or vision changes. The patient does not endorse neck or back pain. The patient denies lightheadedness or dizziness. The patient denies nausea or vomiting. The patient endorses chronic abdominal discomfort but no changes to bowel movements or urination. The patient has had no new focal deficits. He has decreased sensation to the left foot related to his gangrenous necrosis. The patient is blind. Hospital Course Patient refused to go to any, custodial facility. Discharged home with home health services. - Acute hypoxemic respiratory failure secondary to CHF exacerbation, continue to remove fluids with hemodialysis - End-stage renal disease, hemodialysis dependent. Dr. Newby is following in nephrology consultation. Continue on hemodialysis. - Left foot gangrenous wounds, continue antibiotics per ID. Dr. Tobias is following in infection disease consultation. - Systemic inflammatory response syndrome secondary to gangrene of the left foot - Hypertension. Continue home antihypertensive medication. Monitor blood pressure. - CAD - Permanent Pacemaker, Dr. Wagner is following in cardiology consultation - Legally blind status. - Anemia of chronic disease. - Severe peripheral vascular disease with severe infrapopliteal disease and pedal disease. Home Meds Active Scripts Diphenhydramine Hcl* (Benadryl*) 25 Mg Cap, 25 MG PO Q6H Y for ITCHING, #30 [facility] 04/04/17 Hydrocodone Bit-Acetaminophen (Hydrocodone Bit-APAP) 5-325MG Tablet, 1 TAB PO Q4H Y for PAIN, #30 [facility] 04/04/17 Atorvastatin* (Atorvastatin*) 40 Mg Tablet, 40 MG PO HS for 30 Days, TAB [facility] 04/04/17 Clopidogrel Bisulfate (Clopidogrel) 75 Mg Tablet, 75 MG PO DAILY for 30 Days, TAB 2 Refills [facility] 04/04/17 Losartan Potassium* (Losartan Potassium*) 25 Mg Tablet, 25 MG PO DAILY for 30 Days, TAB [facility] 04/04/17 Amlodipine Besylate* (Norvasc*) 5 Mg Tablet, 5 MG PO BID for 30 Days, TAB [facility] 04/04/17 Calcium Acetate* (Calcium Acetate*) 667 Mg Capsule, 667 MG PO WITH MEALS, #30 CAP [facility] 04/04/17 Cinacalcet* (Sensipar*) 30 Mg Tab, 30 MG PO BID for 30 Days, TAB [facility] 04/04/17 Sevelamer Hcl* (Renagel*) 800 Mg Tab, 800 MG PO WITH MEALS, #90 [facility] 04/04/17 Discontinued Reported Medications Metoprolol Succinate* (Toprol XL*) 25 Mg Tab.sr.24h, 25 MG PO DAILY, #30 TAB 11/12/16 Nifedipine* (Afeditab CR*) 60 Mg Tablet.er, 60 MG PO DAILY, #30 TAB.SA 06/07/16 Zolpidem Tartrate* (Zolpidem Tartrate*) 5 Mg Tablet, 5 MG PO QHS Y for INSOMNIA , #30 TAB 06/07/16 Discontinued Scripts Metoprolol Tartrate* (Lopressor*) 50 Mg Tab, 50 MG PO BID for 30 Days, TAB Prov:VIV KING 11/20/16 Follow-up Plan f/up with at HD center for next HD, f/up with PMD in 1-2 weeks, f/up with Dr Zaragoza in 2 weeks. Primary Care Provider Joaquin Newby MD Pending Labs Laboratory Tests Test 04/03/17 20:51 04/04/17 05:12 04/04/17 08:26 04/04/17 12:08 Bedside Glucose 101mg/dL (70-220) 79mg/dL (70-220) 100mg/dL (70-220) White Blood Count 8.610^3/ul (4.8-10.8) Red Blood Count 3.7810^6/ul (4.70-6.10) Hemoglobin 9.8g/dl (14.0-18.0) Hematocrit 30.9% (42.0-52.0) Mean Corpuscular Volume 81.7fl (82.0-101.0) Mean Corpuscular Hemoglobin 25.9pg (29.0-33.0) Mean Corpuscular Hemoglobin Concent 31.7g/dl (32.0-37.0) Red Cell Distribution Width 18.6% (11.5-14.5) Platelet Count 92133^3/UL (140-415) Mean Platelet Volume 9.2fl (7.4-10.4) Neutrophils % 79.4% (39.0-77.0) Lymphocytes % 9.2% (15.0-51.0) Monocytes % 9.2% (0.0-11.0) Eosinophils % 1.2% (0.0-7.0) Basophils % 0.6% (0.0-2.0) Nucleated Red Blood Cells % 0.0/100WBC (0.0-0.0) Neutrophils # 6.810^3/ul (1.6-7.5) Lymphocytes # 0.810^3/ul (0.8-2.9) Monocytes # 0.810^3/ul (0.3-0.9) Eosinophils # 0.110^3/ul (0.0-0.5) Basophils # 0.110^3/ul (0.0-0.1) Nucleated Red Blood Cells # 0.010^3/ul (0.0-0.0) Sodium Level 135mmol/L (135-144) Potassium Level 4.9mmol/L (3.5-5.1) Chloride Level 92mmol/L (97-110) Carbon Dioxide Level 28mmol/L (21-31) Anion Gap 20 (8-16) Blood Urea Nitrogen 61mg/dl (7-20) Creatinine 7.43mg/dl (0.61-1.24) Glucose Level 70mg/dl (70-220) Calcium Level 8.2mg/dl (8.4-10.2) Test 04/04/17 17:04 Bedside Glucose 117mg/dL (70-220) VIV KING Apr 04, 2017 18:07 VIV KING Apr 04, 2017 18:07
--- NOTE | 2017-04-04 22:36 | CONS ---
Date/Time of Note Date/Time of Note DATE: 04/04/17 TIME: 22:35 Consultation Date/Type/Reason Admit Date/Time Mar 24, 2017 at 14:04 Initial Consult Date 03/25/17 Type of Consultation: renal Referring Provider: POLY THRASHER MD Exam/Review of Systems Vital Signs Vitals Vital Signs Date Time Temp Pulse Resp B/P Pulse Ox O2 Delivery O2 Flow Rate FiO2 04/04/17 15:27 98.6 72 20 165/75 100 03/31/17 20:00 Nasal Cannula Intake and Output 04/03/17 04/03/17 04/04/17 15:00 23:00 07:00 Intake Total 250 ml 200 ml Balance 250 ml 200 ml Results Result Diagram: 04/04/17 0512 04/04/17 0512 Results 24 hrs Laboratory Tests Test 04/04/17 05:12 04/04/17 08:26 04/04/17 12:08 04/04/17 17:04 White Blood Count 8.6 Red Blood Count 3.78 L Hemoglobin 9.8 L Hematocrit 30.9 L Mean Corpuscular Volume 81.7 L Mean Corpuscular Hemoglobin 25.9 L Mean Corpuscular Hemoglobin Concent 31.7 L Red Cell Distribution Width 18.6 H Platelet Count 305 Mean Platelet Volume 9.2 Neutrophils % 79.4 H Lymphocytes % 9.2 L Monocytes % 9.2 Eosinophils % 1.2 Basophils % 0.6 Nucleated Red Blood Cells % 0.0 Neutrophils # 6.8 Lymphocytes # 0.8 Monocytes # 0.8 Eosinophils # 0.1 Basophils # 0.1 Nucleated Red Blood Cells # 0.0 Sodium Level 135 Potassium Level 4.9 Chloride Level 92 L Carbon Dioxide Level 28 Anion Gap 20 H Blood Urea Nitrogen 61 H Creatinine 7.43 H Glucose Level 70 Calcium Level 8.2 L Bedside Glucose 79 100 117 SHU WHYTE MD Apr 04, 2017 22:36
--- NOTE | 2017-04-07 08:08 | PN ---
DATE: 04/04/2017 ADDENDUM As per Social service this patient has an open case with adult protective services when he was at [facility]. The patient is mentally competent to make his decisions. If patient wishes to go home, we will arrange for home health. SNF was offered to him yesterday; however, he refused. Dictated By: POLY COREAS/ZACK Conf#: [id number] DID#: [id number] MTDGuille
== END 2017-04-04 18:50 | disposition home health service (06) | DRG 291 ==
LOC: E/R 10:54 → TEL 14:04 → E/R 17:30 → TEL 04-01 18:24
PROVIDERS: ADMIT Internal Medicine; ATTEND Internal Medicine
PROC: 5A1D70Z Performance of Urinary Filtration, Intermittent, Less than 6 Hours Per Day (ICD-10-PCS; 2017-03-25)
PROC: 30233N1 Transfusion of Nonautologous Red Blood Cells into Peripheral Vein, Percutaneous Approach (ICD-10-PCS; principal; 2017-04-02)
DX: I13.2 Hypertensive heart and chronic kidney disease with heart failure and with stage 5 chronic kidney disease, or end stage renal disease (principal); J96.01 Acute respiratory failure with hypoxia; N18.6 End stage renal disease; R65.10 Systemic inflammatory response syndrome (SIRS) of non-infectious origin without acute organ dysfunction; E11.22 Type 2 diabetes mellitus with diabetic chronic kidney disease; I70.263 Atherosclerosis of native arteries of extremities with gangrene, bilateral legs; E11.52 Type 2 diabetes mellitus with diabetic peripheral angiopathy with gangrene; E11.42 Type 2 diabetes mellitus with diabetic polyneuropathy; Z72.0 Tobacco use; Z99.2 Dependence on renal dialysis; H54.8 Legal blindness, as defined in USA; I50.9 Heart failure, unspecified; I25.10 Atherosclerotic heart disease of native coronary artery without angina pectoris; Z79.02 Long term (current) use of antithrombotics/antiplatelets; Z95.820 Peripheral vascular angioplasty status with implants and grafts; Z95.0 Presence of cardiac pacemaker; Z87.891 Personal history of nicotine dependence; E87.5 Hyperkalemia; R79.9 Abnormal finding of blood chemistry, unspecified; D63.1 Anemia in chronic kidney disease
CPT/HCPCS: 36415; 36430; 71010; 80048; 80053; 80061; 80202; 82962; 83036; 83880; 84134; 84439; 84484; 85025; 85610; 85730; 86850; 86900; 86901; 86920; 87040; 87081; 90686; 90935; 93005; 93306; 94664; 96374; J0360; J0696; J1644; J1815; J2270; J3010; J3370; J7040; J7050; P9016

== ENCOUNTER 2017-04-08 20:07 | Inpatient (IN) | payer MEDICARE, OTHER ==
[~2017-04-08] VITALS: Ht 170.2 cm; Wt 63.4 kg
[~2017-04-08 20:07] MED LIST changes: +BEN25 PO; +HYDR-3498 PO; -METO-335 PO; -METO-429 PO; -NIFE60TA24 PO; -ZOLP5TAB7 PO
[2017-04-08] MEDS ORDERED: ONDANSETRON 4 MG INJ IV STA (21:24)
[2017-04-08] MEDS ORDERED: morphine 4 MG/ML VIAL IV STA (21:24)
[2017-04-08] MEDS ORDERED: PIPER-TAZO 3.375 GM IV (PMX) 50 ML IVPB STA (21:24)
[2017-04-08] MEDS ORDERED: VANCOMYCIN 1 GM (PMX) 250 ML IVPB STA (21:24)
[2017-04-08] MEDS ORDERED: ACETAMINOPHEN 325 MG TAB PO PRN ×2 (21:30→23:30)
[2017-04-08] MEDS ORDERED: ONDANSETRON 4 MG INJ IV PRN ×2 (21:30→23:30)
[2017-04-08 22:23] LABS: ABNORMAL IP MESSAGE 1; BASOPHIL # 0.1 10^3/ul (0.0-0.1); BASOPHILS % 0.6 % (0.0-2.0); EOSINOPHILS % 0.1 % (0.0-7.0); HEMATOCRIT 28.7 % (42.0-52.0); HEMOGLOBIN 9.3 g/dl (14.0-18.0); LYMPHOCYTES # 0.5 10^3/ul (0.8-2.9); LYMPHOCYTES % 3.8 % (15.0-51.0); MEAN CORPUSCULAR HEMOGLOBIN 26.1 pg (29.0-33.0); MEAN CORPUSCULAR HGB CONC 32.4 g/dl (32.0-37.0); MEAN CORPUSCULAR VOLUME 80.6 fl (82.0-101.0); MEAN PLATELET VOLUME 9.2 fl (7.4-10.4); MONOCYTE # 1.4 10^3/ul (0.3-0.9); MONOCYTES % 11.4 % (0.0-11.0); NEUTROPHIL # 10.2 10^3/ul (1.6-7.5); NEUTROPHILS % 83.7 % (39.0-77.0); PLATELET COUNT 292 10^3/UL (140-415); POSITIVE DIFF @See below; RED BLOOD COUNT 3.56 10^6/ul (4.70-6.10); RED CELL DISTRIBUTION WIDTH 19.3 % (11.5-14.5); WHITE BLOOD COUNT 12.2 10^3/ul (4.8-10.8)
[2017-04-08] MEDS ORDERED: HYDROmorphONE 1 MG/ML SYG IV STA (22:24)
--- NOTE | 2017-04-08 22:29 | RADRPT ---
PROCEDURE: CT ABDOMEN AND PELVIS WITHOUT CONTRAST. CLINICAL INDICATION: Abdominal pain. Rule out sepsis. TECHNIQUE: CT scan of the abdomen and pelvis without contrast was performed on a multidetector hig h-resolution CT scanner. The patient was scanned without intravenous contrast. Coronal and sagittal reformatted images were obtained from the axial source images. Images were reviewed on a high-resol [employer] PACS workstation. The total exam CTDI equals 5.7 mGy and the total exam DLP equals 318.1 mGy-c m. One or more of the following dose reduction techniques were used: Automated exposure control. Adjustment of the mA and/or kV according to patient size. Use of iterative reconstruction technique. DICOM images are available COMPARISON: None FINDINGS: CT abdomen: Bilateral lower lobe air space disease and bilateral pleural effusions, right greater than left is n oted. Heart size is enlarged. There is mild pericardial effusion. Hepatic morphology is within limits. No gross contour deforming masses. Gallbladder appears to withi n normal limits. No intrahepatic or extrahepatic biliary dilatation. No gross radiopaque stones. The spleen and pancreas are within limits. Both adrenal glands are mildly enlarged. Both kidneys are mildly atrophic. No obstruction hydronephrosis. The visualized GI tract demonstrate normal caliber loops of small and large bowel. No evidence of ob struction. Stool filled loops of large bowel are identified. The appendix is not clearly identified, however no inflammatory changes within right lower quadrant. There is severe diffuse atherosclerotic calcification of the aorta and major arteries of the abdomen /pelvis. CT pelvis: The bladder is partially collapsed. The prostate gland is enlarged measuring up to 5.4 cm. There is sigmoid diverticulosis. Thickening of the lr of the sigmoid colon and left colon. There is minima l adjacent fat stranding. The visualized osseous structures demonstrates multilevel degenerative disease of the spine. IMPRESSION: 1. Bilateral lower lobe air space disease and bilateral pleural effusions, right greater than left. Consider pneumonia in the appropriate clinical setting. 2. Mild thickening of the lr of the sigmoid colon and left colon. Multiple diverticuli are noted. Findings are suggestive of borderline colitis or diverticulitis. 3. No free fluid or free air. No gross focal fluid collections. 4. Severe atherosclerotic disease of the intra-abdominal aorta and major arteries of the abdomen/pel vis. Correlate with clinical history. 5. Prostamegaly RPTAT: AAPP Jaciel Johnson Physician Date Time Electronically viewed and signed by Jaciel Johnson Physician on 04/08/2017 22:28 NICHOLE/
--- NOTE | 2017-04-08 22:35 | RADRPT ---
PROCEDURE: Portable chest x-ray. CLINICAL INDICATION: Chest pain. TECHNIQUE: Portable AP view of the chest. COMPARISON: 06/07/2016. FINDINGS: There are hazy bilateral pulmonary opacities, consistent with edema. Airspace opacity is noted in th e right lower lung. There is mild left basilar atelectasis. The cardiac silhouette is mildly enlarge d. No pleural effusion is seen. There is no pneumothorax. IMPRESSION: 1. Pulmonary edema. 2. Airspace opacity in the right lower lung, consistent with alveolar edema, pneumonia, and/or atel ectasis. 3. Mildly enlarged cardiac silhouette. RPTAT: HTAR .Malik Gary MD, Date Time Electronically viewed and signed by .Malik Gary MD, on 04/08/2017 22:35 .R/
--- NOTE | 2017-04-08 22:48 | ERD ---
ER Documentation Chief Complaint Chief Complaint weakness, abd pain, diarrhea x4 days. +chills HPI Patient is a 61-year-old male with hypertension, diabetes, and dialysis who presents with abdominal pain and diarrhea. He has had diarrhea for the past 4 days. He has chest pain as well. He missed his dialysis yesterday because of the diarrhea. His last dialysis was on Friday. He has had no treatment as of yet. He also has black toes on the left side. Upon review of old medical records the patient has multiple visits to the ER for various complaints. His primary doctor is Dr. French. ROS All systems reviewed and are negative except as per history of present illness. Medications Home Meds Active Scripts Diphenhydramine Hcl* (Benadryl*) 25 Mg Cap, 25 MG PO Q6H Y for ITCHING, #30 CAP Prov:ASHLEY KINGLANA 04/04/17 Hydrocodone Bit-Acetaminophen (Hydrocodone Bit-APAP) 5-325MG Tablet, 1 TAB PO Q4H Y for PAIN, #30 TAB Prov:ASHLEY KINGLANA 04/04/17 Atorvastatin* (Atorvastatin*) 40 Mg Tablet, 40 MG PO HS for 30 Days, TAB Prov:CINTHIA04/04/17 Clopidogrel Bisulfate (Clopidogrel) 75 Mg Tablet, 75 MG PO DAILY for 30 Days, TAB 2 Refills [facility] 04/04/17 Losartan Potassium* (Losartan Potassium*) 25 Mg Tablet, 25 MG PO DAILY for 30 Days, TAB Prov:CINTHIA04/04/17 Amlodipine Besylate* (Norvasc*) 5 Mg Tablet, 5 MG PO BID for 30 Days, TAB Prov:ATILIO04/04/17 Calcium Acetate* (Calcium Acetate*) 667 Mg Capsule, 667 MG PO WITH MEALS, #30 CAP Prov:[facility] 04/04/17 Cinacalcet* (Sensipar*) 30 Mg Tab, 30 MG PO BID for 30 Days, TAB Prov:[facility] 04/04/17 Sevelamer Hcl* (Renagel*) 800 Mg Tab, 800 MG PO WITH MEALS, #90 Prov:ASHLEY KINGLANA 04/04/17 Discontinued Reported Medications Metoprolol Succinate* (Toprol XL*) 25 Mg Tab.sr.24h, 25 MG PO DAILY, #30 TAB 11/12/16 Nifedipine* (Afeditab CR*) 60 Mg Tablet.er, 60 MG PO DAILY, #30 TAB.SA 06/07/16 Zolpidem Tartrate* (Zolpidem Tartrate*) 5 Mg Tablet, 5 MG PO QHS Y for INSOMNIA , #30 TAB 06/07/16 Discontinued Scripts Metoprolol Tartrate* (Lopressor*) 50 Mg Tab, 50 MG PO BID for 30 Days, TAB Prov:VIV KING 11/20/16 Allergies Allergies: Coded Allergies: fluorescein (Verified Allergy, Unknown, 04/08/17) PMhx/Soc History of Surgery: Yes (appendectomy) Anesthesia Reaction: No Hx Neurological Disorder: Yes (diabetic neuropathy) Hx Respiratory Disorders: No Hx Cardiac Disorders: Yes (pvd, htn, cad, hyperlipidemia, stent) Hx Psychiatric Problems: No Hx Miscellaneous Medical Probl: Yes (Legally blind. ) Hx Alcohol Use: No Hx Substance Use: No Hx Tobacco Use: No Smoking Status: Never smoker FmHx Family History: No diabetes Physical Exam Vitals Vital Signs Date Time Temp Pulse Resp B/P Pulse Ox O2 Delivery O2 Flow Rate FiO2 04/08/17 22:32 75 16 136/74 95 Nasal Cannula 3.0 04/08/17 20:45 Nasal Cannula 3 04/08/17 20:14 98.2 80 18 155/83 99 Physical Exam Const: Moderate distress secondary to pain Head: Atraumatic Eyes: Normal Conjunctiva ENT: Normal External Ears, Nose and Mouth. Neck: Full range of motion..~ No meningismus. Resp: Clear to auscultation bilaterally Cardio: Regular rate and rhythm, no murmurs Abd: Diffuse tenderness to palpation without rebound or guarding Skin: Black toes to the left foot with black eschar of the left heel as well consistent with gangrene Back: No midline or flank tenderness Ext: No cyanosis, or edema Neur: Awake and alert Psych: Normal Mood and Affect Result Diagram: 04/08/17 2200 Results 24 hrs Laboratory Tests Test 04/08/17 22:00 White Blood Count 12.210^3/ul Red Blood Count 3.5610^6/ul Hemoglobin 9.3g/dl Hematocrit 28.7% Mean Corpuscular Volume 80.6fl Mean Corpuscular Hemoglobin 26.1pg Mean Corpuscular Hemoglobin Concent 32.4g/dl Red Cell Distribution Width 19.3% Platelet Count 98045^3/UL Mean Platelet Volume 9.2fl Neutrophils % 83.7% Lymphocytes % 3.8% Monocytes % 11.4% Eosinophils % 0.1% Basophils % 0.6% Nucleated Red Blood Cells % 0.0/100WBC Neutrophils # 10.210^3/ul Lymphocytes # 0.510^3/ul Monocytes # 1.410^3/ul Eosinophils # 0.010^3/ul Basophils # 0.110^3/ul Nucleated Red Blood Cells # 0.010^3/ul Current Medications Medications (Trade) Dose Ordered Sig/Loy Route PRN Reason Start Time Stop Time Status Last Admin Dose Admin Vancomycin HCl 250 ml @ 125 mls/hr ONCE STAT IVPB 04/08/17 21:24 04/08/17 23:23 04/08/17 22:18 Piperacillin Sod/ Tazobactam Sod (Zosyn 3.375gm/ 50 ml (Pmx)) 50 ml @ 100 mls/hr ONCE STAT IVPB 04/08/17 21:24 04/08/17 21:53 DC 04/08/17 22:01 Morphine Sulfate (morphine) 4 mg ONCE STAT IV 04/08/17 21:24 04/08/17 21:27 DC 04/08/17 22:01 Ondansetron HCl (Zofran Inj) 4 mg ONCE STAT IV 04/08/17 21:24 04/08/17 21:27 DC 04/08/17 22:01 Ondansetron HCl (Zofran Inj) 4 mg ER BRIDGE PRN IV NAUSEA AND/OR VOMITING 04/08/17 21:30 04/09/17 21:29 Acetaminophen (Tylenol Tab) 650 mg ER BRIDGE PRN PO MILD PAIN/FEVER 04/08/17 21:30 04/09/17 21:29 Hydromorphone HCl (Dilaudid) 1 mg ONCE STAT IV 04/08/17 22:24 04/08/17 22:25 DC 04/08/17 22:28 Procedures/MDM EKG read by me: Rate/Rhythm: Regular rate and rhythm at a normal rate Intervals: Normal Impression: No evidence of ischemia or arrhythmia CT abdomen pelvis shows no intra-abdominal process per radiology but does show possible pneumonia. Chest x-ray shows possible pneumonia per radiology. Patient is a 61-year-old male who presents with abdominal pain and diarrhea. He also has gangrene of his foot. I am concerned for potential C. difficile infection so a C. difficile toxin and culture was sent. The patient also has a pneumonia seen on chest x-ray and CT scan and was given broad-spectrum antibiotics with vancomycin and Zosyn. At this point I doubt sepsis as he does not have any service criteria. The patient will be admitted to the care of Dr. French his primary doctor and may require surgical intervention for his gangrene of the left foot. I would think that amputation may be necessary in this case. The patient will be admitted to a medical surgical bed. I do believe that inpatient admission is appropriate and he would not be able to be managed in an outpatient level of care at this time. Departure Diagnosis: Primary Impression: Gangrene Additional Impressions: Diarrhea Diarrhea type: unspecified type Qualified Code: R19.7 - Diarrhea, unspecified type Abdominal pain Abdominal location: generalized Qualified Code: R10.84 - Generalized abdominal pain Pneumonia Pneumonia type: due to unspecified organism Laterality: unspecified laterality Lung location: unspecified part of lung Qualified Code: J18.9 - Pneumonia due to infectious organism, unspecified laterality, unspecified part of lung Condition: Serious SAADIA CASTANEDA MD Apr 08, 2017 22:48
[2017-04-08 22:49] LABS: ALBUMIN/GLOBULIN RATIO 1.05; BILIRUBIN,INDIRECT 0.1 mg/dl (0-1.1); BILIRUBIN,TOTAL 0.1 mg/dl (0.2-1.3); C-REACTIVE PROTEIN 4.7 mg/dl (0.0-0.9); CREATININE 13.53 mg/dl (0.61-1.24); POTASSIUM 5.7 mmol/L (3.5-5.1); TOTAL PROTEIN 7.8 g/dl (6.1-8.1)
[2017-04-08 22:52] LABS: INR 1.21; PROTIME 15.5 Sec (11.9-14.9); PT RATIO 1.2
[2017-04-08 22:53] LABS: PARTIAL THROMBOPLASTIN TIME 38.3 Sec (25.0-35.0)
[2017-04-08] MEDS ORDERED: HYDROCODONE/APAP (5/325) TAB PO PRN (23:30)
[2017-04-08 23:38] VITALS: Ht 170.2 cm; Wt 63.4 kg
[2017-04-08 23:39] LABS: TROPONIN-I 2.63 ng/ml (0.00-0.12)
[2017-04-08 23:44] VITALS: BP 136/63; RESP 20
[2017-04-09] VITALS (20 sets, daily range): BP systolic 118–165; BP diastolic 60–77; PULSE 69–77; RESP 18–22
[2017-04-09] MEDS: HYDROCODONE/APAP (5/325) TAB PO PRN ×4 (00:28→21:03)
[2017-04-09] MEDS: VANCOMYCIN HCL 250 MG/5ML POSYG PO SCH ×4 (01:04→17:37)
[2017-04-09] MEDS: DEXTROSE 5%-0.45% NACL 1,000 ML IV SCH ×2 (02:15→19:30)
[2017-04-09] MEDS: SEVELAMER 800 MG TAB PO SCH ×3 (08:13→17:36)
[2017-04-09] MEDS: CALCIUM ACETATE 667 MG CAP PO SCH ×3 (08:13→17:36)
[2017-04-09] MEDS: ASPIRIN 325 MG TAB PO SCH (08:14)
[2017-04-09] MEDS: CLOPIDOGREL 75 MG TAB PO SCH (08:16)
[2017-04-09] MEDS: CINACALCET 30 MG TAB PO SCH ×2 (08:16→20:54)
[2017-04-09] MEDS: AMLODIPINE 5 MG TAB PO SCH ×2 (08:16→20:53)
[2017-04-09 09:11] LABS: ABNORMAL IP MESSAGE 1; BASOPHIL # 0.1 10^3/ul (0.0-0.1); BASOPHILS % 0.9 % (0.0-2.0); EOSINOPHILS # 0.1 10^3/ul (0.0-0.5); EOSINOPHILS % 0.6 % (0.0-7.0); HEMATOCRIT 25.9 % (42.0-52.0); HEMOGLOBIN 8.3 g/dl (14.0-18.0); LYMPHOCYTES # 0.6 10^3/ul (0.8-2.9); LYMPHOCYTES % 5.3 % (15.0-51.0); MEAN CORPUSCULAR HEMOGLOBIN 26.1 pg (29.0-33.0); MEAN CORPUSCULAR VOLUME 81.4 fl (82.0-101.0); MEAN PLATELET VOLUME 9.8 fl (7.4-10.4); MONOCYTES % 9.9 % (0.0-11.0); NEUTROPHIL # 8.7 10^3/ul (1.6-7.5); NEUTROPHILS % 82.7 % (39.0-77.0); PLATELET COUNT 275 10^3/UL (140-415); POSITIVE DIFF @See below; RED BLOOD COUNT 3.18 10^6/ul (4.70-6.10); RED CELL DISTRIBUTION WIDTH 19.2 % (11.5-14.5); WHITE BLOOD COUNT 10.5 10^3/ul (4.8-10.8)
[2017-04-09 09:30] LABS: CALCIUM 10.4 mg/dl (8.4-10.2); CREATININE 13.44 mg/dl (0.61-1.24); POTASSIUM 5.7 mmol/L (3.5-5.1)
[2017-04-09] MEDS: BALSAM PERU/CASTOR OIL 60 GM TUBE TOP SCH ×2 (12:47→20:54)
--- NOTE | 2017-04-09 13:10 | HP ---
Date/Time of Note Date/Time of Note DATE: 04/09/17 TIME: 13:07 Assessment/Plan VTE Prophylaxis VTE Prophylaxis Intervention: contraindicated VTE Contraindication Reason: peripheral vascular disease Lines/Catheters IV [facility]from [facility] Saline Lock Urinary Cath still in place: No Assessment/Plan Assessment/Plan -Diarrhea, rule out C. difficile colitis -Elevated troponin, Dr. Pike is asked to see patient in cardiology consultation -End-stage renal disease hemodialysis dependent. Dr. Wallace is following in nephrology consultation. Patient will undergo hemodialysis. -Hyperkalemia - possible PNA, continue abx. Dr Tobias is asked to see pt in ID consultation. - Left foot gangrenous wounds - Severe peripheral vascular disease with severe infrapopliteal disease and pedal disease. - Hypertension. - CAD - Permanent Pacemaker. - Legally blind - Anemia of chronic disease. Further recommendations based on clinical course. Plan of care discussed with Dr. French Further recommendations based on clinical course. Plan of care discussed with Dr. French. HPI/ROS Admit Date/Time Admit Date/Time Apr 08, 2017 at 21:31 Hx of Present Illness The patient is 61-year-old gentleman known to me from previous admission. Patient has significant medical history including hemodialysis dependent end- stage renal disease, hypertension, coronary artery artery disease, severe peripheral vascular disease and bilateral foot dry gangrene, hypertension, blindness. Patient presented to the emergency room with complaints of 4 days of diarrhea. Patient did receive antibiotics for bilateral foot gangrenous wounds during previous admission. Patient complained of chest pain, abdominal pain, and bilateral lower extremities pain. Patient underwent chest Xray which revealed possible pneumonia, pt was started on broad-spectrum antibiotics. Patient did miss his hemodialysis due to diarrhea, his last dialysis was on Friday. Patient noted to have elevated troponin and hyperkalemia on admission. Patient is admitted for further evaluation and management to telemetry floor. PMH/Family/Social Past Medical History Medical History: coronary artery disease, high cholesterol, hypertension, renal disease Past Surgical History Status post appendectomy, status post left upper extremity AV fistula creation , status post permanent pacemaker insertion Past Surgical Hx: appendectomy, other Family History Significant Family History: no pertinent family hx Social History Alcohol Use: none Smoking Status: Former smoker Drug Use: none Exam/Review of Systems Vital Signs Vitals Vital Signs Date Time Temp Pulse Resp B/P Pulse Ox O2 Delivery O2 Flow Rate FiO2 04/09/17 12:09 73 04/09/17 11:13 98.0 20 138/65 92 04/09/17 08:19 Nasal Cannula 2.0 Intake and Output 04/08/17 04/08/17 04/09/17 15:00 23:00 07:00 Intake Total 375 ml Balance 375 ml Exam Constitutional: alert, oriented Head: normocephalic Eyes: other (Blind) Neck: supple Respiratory: diminished breath sounds Cardiovascular: other (Paced rhythm) Gastrointestinal: soft, tender Musculoskeletal: nl extremities to inspection (Right heel gangrenous wound, left foot gangrene) Extremities: normal pulses, other (Bilateral feet gangrene) Neurological: nl mental status Skin: nl turgor Labs Result Diagram: 04/09/1782104/09/17821 Medications Medications Current Medications Dextrose/Sodium Chloride (D5-1/2ns) 1,000 ml @ 50 mls/hr Q20H IV Last administered on 04/09/17 02:15; Admin Dose 50 MLS/HR; Start 04/08/17 at 23:30 Ondansetron HCl (Zofran Inj) 4 mg Q6H PRN IV NAUSEA AND/OR VOMITING; Start 04/08/17 at 23:30 Vancomycin HCl (Vancomycin Oral Syringe) 250 mg Q6 PO Last administered on 04/09 11:36; Admin Dose 250 MG; Start 04/09/17 at 00:00 Acetaminophen (Tylenol Tab) 650 mg Q4H PRN PO PAIN AND OR ELEVATED TEMP; Start 04/08/17 at 23:30 Acetaminophen/ Hydrocodone Bitart ([place] (5/325)) 1 tab Q4H PRN PO PAIN LEVEL 4 -6 Last administered on 04/09/17 12:47; Admin Dose 1 TAB; Start 04/08/17 at 23: 30 Amlodipine Besylate (Norvasc) 5 mg BID PO Last administered on 04/09/17 08:16 ; Admin Dose 5 MG; Start 04/09/17 at 09:00 Atorvastatin Calcium (Lipitor) 40 mg HS PO ; Start 04/09/17 at 21:00 Cinacalcet (Sensipar) 30 mg BID PO Last administered on 04/09/17 08:16; Admin Dose 30 MG; Start 04/09/17 at 09:00 Clopidogrel Bisulfate (plaVIX) 75 mg DAILY PO Last administered on 04/09/17 08 :16; Admin Dose 75 MG; Start 04/09/17 at 09:00 Diphenhydramine HCl (Benadryl) 25 mg Q6H PRN PO ITCHING; Start 04/08/17 at 23: 30 Aspirin (Aspirin) 325 mg DAILY PO Last administered on 04/09/17 08:14; Admin Dose 325 MG; Start 04/09/17 at 09:00 Carvedilol (Coreg) 3.125 mg BID PO Last administered on 04/09/17 08:17; Admin Dose 3.125 MG; Start 04/09/17 at 09:00 VIV KING Apr 09, 2017 13:10
--- NOTE | 2017-04-09 14:36 | CONS ---
Date/Time of Note Date/Time of Note DATE: 04/09/17 TIME: 14:35 Assessment/Plan Assessment/Plan Additional Assessment/Plan 61 yo male with 1)Abd Pain and Diarrhea, Possible C. difficile colitis 2)Elevated troponin, CAD 3)End-stage renal disease hemodialysis dependent 4)Hyperkalemia 5)Left foot gangrenous wounds 6)Severe peripheral vascular disease with severe infrapopliteal disease and pedal disease. 7)Hypertension. 8)CAD 9)Permanent Pacemaker. 10)Legally blind 11)Anemia of chronic disease 12)Possible Pna vs Edema Recommend repeat CXR Agree with PO Vanco Pt received IV vanco and zosyn yesterday S/p HD today Will order HD tomorrow with UF as tolerated Repeat chemistry in am thank you for the opportunity to participate in the care of Mr Thibodeaux. Consultation Date/Type/Reason Admit Date/Time Apr 08, 2017 at 21:31 Date of Consultation: Apr 09, 2017 Type of Consultation: Nephrology Reason for Consultation ESRD Referring Provider: POLY THRASHER MD Hx of Present Illness 61 yo male with ESRD on HD every , [facility] missed HD friday due to diarrhea, S/p HD this am who presented to ED at [facility] with CC of abdominal pain and diarrhea prior to hospital admission for 4 days. He was found to also have possible PNA, has been given IV vanco and Zosyn and started on PO vanco for possible colitis. Nephrology consulted or management of ESRD. Constitutional: No requiring O2 Past Medical History Medical History: diabetes, hypertension, renal disease Past Surgical History Past Surgical Hx: appendectomy, other (AVF) Family History Significant Family History: no pertinent family hx Social History Alcohol Use: none Smoking Status: Former smoker Drug Use: none Exam/Review of Systems Vital Signs Vitals Vital Signs Date Time Temp Pulse Resp B/P Pulse Ox O2 Delivery O2 Flow Rate FiO2 04/09/17 12:09 73 04/09/17 11:13 98.0 20 138/65 92 04/09/17 08:19 Nasal Cannula 2.0 Intake and Output 04/08/17 04/08/17 04/09/17 14:59 22:59 06:59 Intake Total 375 ml Balance 375 ml Exam Constitutional: alert, frail, No distress Psych: nl mood/affect, No anxiety Head: atraumatic, normocephalic Eyes: EOMI ENMT: mucosa pink and moist Neck: No jvd Respiratory: crackles/rales, diminished breath sounds, No labored breathing Cardiovascular: regular rate and rhythm, No edema Gastrointestinal: non-tender, soft, No distended, No rebound or guarding Musculoskeletal: other (PVD) Extremities: No edema Neurological: PAWN SHOP KEEPER II-XII intact, nl mental status, No confused, No lethargic, No other (legally blind) Skin: No diaphoresis Results Result Diagram: 04/09/1782104/09/17 0822 Results 24 hrs Laboratory Tests Test 04/08/17 22:00 04/08/17 22:15 04/09/17 00:04 04/09/17 02:28 White Blood Count 12.2 #H Red Blood Count 3.56 L Hemoglobin 9.3 L Hematocrit 28.7 L Mean Corpuscular Volume 80.6 L Mean Corpuscular Hemoglobin 26.1 L Mean Corpuscular Hemoglobin Concent 32.4 Red Cell Distribution Width 19.3 H Platelet Count 292 Mean Platelet Volume 9.2 Neutrophils % 83.7 H Lymphocytes % 3.8 L Monocytes % 11.4 H Eosinophils % 0.1 Basophils % 0.6 Nucleated Red Blood Cells % 0.0 Neutrophils # 10.2 H Lymphocytes # 0.5 L Monocytes # 1.4 H Eosinophils # 0.0 Basophils # 0.1 Nucleated Red Blood Cells # 0.0 Prothrombin Time 15.5 H Prothrombin Time Ratio 1.2 INR International Normalized Ratio 1.21 Activated Partial Thromboplast Time 38.3 H Sodium Level 141 Potassium Level 5.7 H Chloride Level 96 L Carbon Dioxide Level 21 Anion Gap 30 H Blood Urea Nitrogen 127 H Creatinine 13.53 H Glucose Level 105 Calcium Level 11.0 H Total Bilirubin 0.1 L Direct Bilirubin 0.00 Indirect Bilirubin 0.1 Aspartate Amino Transf (AST/SGOT) 25 Alanine Aminotransferase (ALT/SGPT) 33 Alkaline Phosphatase 186 H Troponin I 2.630 *H C-Reactive Protein 4.7 H Total Protein 7.8 Albumin 4.0 Globulin 3.80 H Albumin/Globulin Ratio 1.05 Lactic Acid Level 1.1 1.1 0.8 Test 04/09/17 08:22 White Blood Count 10.5 Red Blood Count 3.18 L Hemoglobin 8.3 L Hematocrit 25.9 L Mean Corpuscular Volume 81.4 L Mean Corpuscular Hemoglobin 26.1 L Mean Corpuscular Hemoglobin Concent 32.0 Red Cell Distribution Width 19.2 H Platelet Count 275 Mean Platelet Volume 9.8 Neutrophils % 82.7 H Lymphocytes % 5.3 L Monocytes % 9.9 Eosinophils % 0.6 Basophils % 0.9 Nucleated Red Blood Cells % 0.0 Neutrophils # 8.7 H Lymphocytes # 0.6 L Monocytes # 1.0 H Eosinophils # 0.1 Basophils # 0.1 Nucleated Red Blood Cells # 0.0 Sodium Level 139 Potassium Level 5.7 H Chloride Level 98 Carbon Dioxide Level 20 L Anion Gap 27 H Blood Urea Nitrogen 134 H Creatinine 13.44 H Glucose Level 112 Calcium Level 10.4 H Troponin I 3.100 *H Imaging Free Text/Dictation IMPRESSION: 1. Pulmonary edema. 2. Airspace opacity in the right lower lung, consistent with alveolar edema, pneumonia, and/or atelectasis. 3. Mildly enlarged cardiac silhouette. Medications Medications Current Medications Dextrose/Sodium Chloride (D5-1/2ns) 1,000 ml @ 50 mls/hr Q20H IV Last administered on 04/09/17 02:15; Admin Dose 50 MLS/HR; Start 04/08/17 at 23:30 Ondansetron HCl (Zofran Inj) 4 mg Q6H PRN IV NAUSEA AND/OR VOMITING; Start 04/08/17 at 23:30 Vancomycin HCl (Vancomycin Oral Syringe) 250 mg Q6 PO Last administered on 04/09 11:36; Admin Dose 250 MG; Start 04/09/17 at 00:00 Acetaminophen (Tylenol Tab) 650 mg Q4H PRN PO PAIN AND OR ELEVATED TEMP; Start 04/08/17 at 23:30 Acetaminophen/ Hydrocodone Bitart ([place] (5/325)) 1 tab Q4H PRN PO PAIN LEVEL 4 -6 Last administered on 04/09/17 12:47; Admin Dose 1 TAB; Start 04/08/17 at 23: 30 Amlodipine Besylate (Norvasc) 5 mg BID PO Last administered on 04/09/17 08:16 ; Admin Dose 5 MG; Start 04/09/17 at 09:00 Atorvastatin Calcium (Lipitor) 40 mg HS PO ; Start 04/09/17 at 21:00 Cinacalcet (Sensipar) 30 mg BID PO Last administered on 04/09/17 08:16; Admin Dose 30 MG; Start 04/09/17 at 09:00 Clopidogrel Bisulfate (plaVIX) 75 mg DAILY PO Last administered on 04/09/17 08 :16; Admin Dose 75 MG; Start 04/09/17 at 09:00 Diphenhydramine HCl (Benadryl) 25 mg Q6H PRN PO ITCHING; Start 04/08/17 at 23: 30 Aspirin (Aspirin) 325 mg DAILY PO Last administered on 04/09/17 08:14; Admin Dose 325 MG; Start 04/09/17 at 09:00 Carvedilol (Coreg) 3.125 mg BID PO Last administered on 04/09/17 08:17; Admin Dose 3.125 MG; Start 04/09/17 at 09:00 Procedures Procedures IMPRESSION: 1. Bilateral lower lobe air space disease and bilateral pleural effusions, right greater than left. Consider pneumonia in the appropriate clinical setting. 2. Mild thickening of the lr of the sigmoid colon and left colon. Multiple diverticuli are noted. Findings are suggestive of borderline colitis or diverticulitis. 3. No free fluid or free air. No gross focal fluid collections. 4. Severe atherosclerotic disease of the intra-abdominal aorta and major arteries of the abdomen/pelvis. Correlate with clinical history. 5. Prostamegaly PIPER FELIX MD Apr 09, 2017 14:35
[2017-04-09] MEDS ORDERED: HEPARIN 25000 UNITS/250 ML 250 ML IV SCH (15:30)
[2017-04-09] MEDS ORDERED: HEPARIN 1000 UNITS/ML 10 ML INJ IV PRN (15:30)
[2017-04-09] MEDS ORDERED: VANCOMYCIN IV PER PHARMACY XX SCH (16:00)
[2017-04-09 16:02] LABS: INR 1.19; PROTIME 15.3 Sec (11.9-14.9); PT RATIO 1.2
[2017-04-09 16:03] LABS: PARTIAL THROMBOPLASTIN TIME 37.5 Sec (25.0-35.0)
[2017-04-09] MEDS ORDERED: VANCOMYCIN 1.25 GM in SOD CHLORIDE 0.9% 250 ML IVPB SCH ×2 (17:00→21:00)
[2017-04-09] MEDS: ATORVASTATIN 40 MG TAB PO SCH (20:53)
[2017-04-09] MEDS: PIPER-TAZO 2.25 GM (PMX) 50 ML IVPB SCH (22:13)
[2017-04-10] VITALS (18 sets, daily range): BP systolic 126–162; BP diastolic 64–82; PULSE 69–91; RESP 18–20
[2017-04-10] MEDS: VANCOMYCIN HCL 250 MG/5ML POSYG PO SCH ×5 (01:09→17:21)
[2017-04-10] MEDS: HYDROCODONE/APAP (5/325) TAB PO PRN ×2 (01:14→12:56)
[2017-04-10 05:18] LABS: ABNORMAL IP MESSAGE 1; BASOPHIL # 0.1 10^3/ul (0.0-0.1); BASOPHILS % 0.5 % (0.0-2.0); EOSINOPHILS # 0.1 10^3/ul (0.0-0.5); EOSINOPHILS % 1.4 % (0.0-7.0); HEMATOCRIT 23.3 % (42.0-52.0); HEMOGLOBIN 7.7 g/dl (14.0-18.0); LYMPHOCYTES # 0.6 10^3/ul (0.8-2.9); LYMPHOCYTES % 5.7 % (15.0-51.0); MEAN CORPUSCULAR HEMOGLOBIN 26.8 pg (29.0-33.0); MEAN CORPUSCULAR VOLUME 81.2 fl (82.0-101.0); MEAN PLATELET VOLUME 9.9 fl (7.4-10.4); MONOCYTE # 1.1 10^3/ul (0.3-0.9); NEUTROPHIL # 8.2 10^3/ul (1.6-7.5); PLATELET COUNT 224 10^3/UL (140-415); POSITIVE DIFF @See below; RED BLOOD COUNT 2.87 10^6/ul (4.70-6.10); RED CELL DISTRIBUTION WIDTH 19.5 % (11.5-14.5); WHITE BLOOD COUNT 10.1 10^3/ul (4.8-10.8)
[2017-04-10 05:44] LABS: CALCIUM 9.6 mg/dl (8.4-10.2); CREATININE 10.14 mg/dl (0.61-1.24); POTASSIUM 4.7 mmol/L (3.5-5.1)
[2017-04-10] MEDS: SEVELAMER 800 MG TAB PO SCH ×4 (07:55→17:21)
[2017-04-10] MEDS: CALCIUM ACETATE 667 MG CAP PO SCH ×4 (07:55→17:21)
[2017-04-10] MEDS: BALSAM PERU/CASTOR OIL 60 GM TUBE TOP SCH ×2 (08:43→21:17)
[2017-04-10] MEDS: CINACALCET 30 MG TAB PO SCH ×2 (08:52→21:15)
[2017-04-10] MEDS: ASPIRIN 325 MG TAB PO SCH (08:53)
[2017-04-10] MEDS: CLOPIDOGREL 75 MG TAB PO SCH (08:53)
[2017-04-10] MEDS: AMLODIPINE 5 MG TAB PO SCH ×2 (09:00→21:16)
[2017-04-10] MEDS: PIPER-TAZO 2.25 GM (PMX) 50 ML IVPB SCH (09:03)
--- NOTE | 2017-04-10 10:39 | CONS ---
Date/Time of Note Date/Time of Note DATE: 04/10/17 TIME: 10:28 Assessment/Plan Assessment/Plan Chief Complaint/Hosp Course 1. Non-ST elevation myocardial infarction 2. End-stage renal disease on hemodialysis 3. Severe peripheral vascular disease 4. Gangrene of toe 5. Diabetes 6. Dyslipidemia 7. Congestive heart failure 8. Severe and worsening anemia 9. Known severe coronary artery disease including calcified left main disease 10. Ischemic cardiomyopathy Recommendations: I will reduce patient's aspirin to 81 mg. I will stop the heparin drip for now. We will try to manage the patient with continued and aggressive medical therapy as much as possible. Antibiotic will be managed as per internal medicine IDs recommendations. I will try to review the old films which was done not too long ago at [facility] to review his coronary angiogram. Based on information I have so far he does not appear to be amenable to any intervention safely or bypass surgery. Consider CT surgery consultation but I highly doubt the patient would be a reasonable candidate for coronary bypass graft Hemodialysis as per renal. Consider transfusing the patient given his acute RI to keep the hemoglobin above 9 at least. Thank you for his referral. We will continue to follow along with you on behalf of Dr. James FERRELL MD [facility] Problems: Consultation Date/Type/Reason Admit Date/Time Apr 08, 2017 at 21:31 Date of Consultation: Apr 10, 2017 Reason for Consultation +TROP Referring Provider: POLY THRASHER MD Hx of Present Illness Interventional cardiology consultation Referring physician: Dr Breen and patient's creative services producer Dr. James Barr cc; diarrhea and not feeling well History of present illness: Thank you for his referral. History was obtained from patient who is a very poor historian, from review of his old chart, from discussion with the staff and physicians including patient's regular creative services producer who provided most of the history to me. This is a 61-year-old gentleman with multiple complicated medical history including severe peripheral vascular disease, severe coronary artery disease and ischemic cardiomyopathy, renal failure on dialysis who was admitted for complaint of diarrhea and not feeling better. His troponin was also positive. Patient said he had chest pain about 3 days ago which could not explain it well. He is not having any chest pain now. His troponin roddy to 3 for which I was kindly asked to evaluate and treat. Past medical history history of coronary artery disease and severe ischemic cardiomyopathy. As per discussion with Dr. salas his last angiogram was done in February which showed significant left main and left circumflex artery disease. At that time he was felt to be too high risk for coronary artery bypass graft or PCI. End-stage renal disease on hemodialysis history of severe peripheral vascular disease status post lower extremity stenting Hypertension diabetes Patient is legally blind And has a history of noncompliance with physician recommendations in the past. Anemia Medication was reviewed as per medical reconciliation sheet Family history no early coronary artery disease reported. Patient Allergies to fluorescein Review of systems positive for severe foot pain in addition to above-mentioned. He denies all except for above-mentioned. Past Medical History Medical History: diabetes, hypertension, renal disease Past Surgical History Past Surgical Hx: appendectomy, other (AVF) Social History Alcohol Use: none Smoking Status: Former smoker Drug Use: none Exam/Review of Systems Vital Signs Vitals Vital Signs Date Time Temp Pulse Resp B/P Pulse Ox O2 Delivery O2 Flow Rate FiO2 04/10/17 10:15 83 04/10/17 08:15 18 04/10/17 07:48 98.2 145/70 90 04/09/17 08:19 Nasal Cannula 2.0 Intake and Output 04/09/17 04/09/17 04/10/17 15:00 23:00 07:00 Intake Total 650 ml 1022.5 ml 647.5 ml Output Total 6500 ml Balance -5850 ml 1022.5 ml 647.5 ml Exam General: no acute distress HEENT: NC/AT. pupils are equal. round. NECK: NO JVD. no stridor. CV: RRR. systolic murmur; no gallop or rubs. PULM: +_ rhonchi. GI: SOFT, NT, ND, no rebound or guarding Extremity: + necrotic toes neuro: awake and alert, Psych: calm and pleasant rectal: deferred ECG: Normal sinus rhythm. ST-T wave abnormality consistent with inferolateral ischemia Results Result Diagram: 04/10/17 0417 04/10/17 0417 Results 24 hrs Laboratory Tests Test 04/09/17 14:03 04/09/17 15:32 04/09/17 22:01 04/10/17 04:17 Troponin I 3.320 *H Prothrombin Time 15.3 H Prothrombin Time Ratio 1.2 INR International Normalized Ratio 1.19 Activated Partial Thromboplast Time 37.5 H 49.8 H 51.6 H White Blood Count 10.1 Red Blood Count 2.87 L Hemoglobin 7.7 L Hematocrit 23.3 L Mean Corpuscular Volume 81.2 L Mean Corpuscular Hemoglobin 26.8 L Mean Corpuscular Hemoglobin Concent 33.0 Red Cell Distribution Width 19.5 H Platelet Count 224 Mean Platelet Volume 9.9 Neutrophils % 81.0 H Lymphocytes % 5.7 L Monocytes % 11.0 Eosinophils % 1.4 Basophils % 0.5 Nucleated Red Blood Cells % 0.0 Neutrophils # 8.2 H Lymphocytes # 0.6 L Monocytes # 1.1 H Eosinophils # 0.1 Basophils # 0.1 Nucleated Red Blood Cells # 0.0 Sodium Level 140 Potassium Level 4.7 Chloride Level 100 Carbon Dioxide Level 24 Anion Gap 21 H Blood Urea Nitrogen 75 #H Creatinine 10.14 #H Glucose Level 119 Calcium Level 9.6 Medications Medications Current Medications Dextrose/Sodium Chloride (D5-1/2ns) 1,000 ml @ 50 mls/hr Q20H IV Last administered on 04/09/17 02:15; Admin Dose 50 MLS/HR; Start 04/08/17 at 23:30 Ondansetron HCl (Zofran Inj) 4 mg Q6H PRN IV NAUSEA AND/OR VOMITING; Start 04/08/17 at 23:30 Vancomycin HCl (Vancomycin Oral Syringe) 250 mg Q6 PO Last administered on 04/09 11:36; Admin Dose 250 MG; Start 04/09/17 at 00:00 Acetaminophen (Tylenol Tab) 650 mg Q4H PRN PO PAIN AND OR ELEVATED TEMP; Start 04/08/17 at 23:30 Acetaminophen/ Hydrocodone Bitart ([place] (5/325)) 1 tab Q4H PRN PO PAIN LEVEL 4 -6 Last administered on 04/10/17 01:14; Admin Dose 1 TAB; Start 04/08/17 at 23: 30 Amlodipine Besylate (Norvasc) 5 mg BID PO Last administered on 04/09/17 20:53 ; Admin Dose 5 MG; Start 04/09/17 at 09:00 Atorvastatin Calcium (Lipitor) 40 mg HS PO Last administered on 04/09/17 20:53 ; Admin Dose 40 MG; Start 04/09/17 at 21:00 Cinacalcet (Sensipar) 30 mg BID PO Last administered on 04/10/17 08:52; Admin Dose 30 MG; Start 04/09/17 at 09:00 Clopidogrel Bisulfate (plaVIX) 75 mg DAILY PO Last administered on 04/10/17 08 :53; Admin Dose 75 MG; Start 04/09/17 at 09:00 Diphenhydramine HCl (Benadryl) 25 mg Q6H PRN PO ITCHING; Start 04/08/17 at 23: 30 Aspirin (Aspirin) 325 mg DAILY PO Last administered on 04/10/17 08:53; Admin Dose 325 MG; Start 04/09/17 at 09:00 Carvedilol 3.125 mg 3.125 mg BID PO Last administered on 04/09/17 20:54; Admin Dose 3.125 MG; Start 04/09/17 at 09:00 Piperacillin Sod/ Tazobactam Sod (Zosyn 2.25gm/ 50ml (Pmx)) 50 ml @ 100 mls/hr Q12H IVPB Last administered on 04/09/17 22:13; Admin Dose 100 MLS/HR; Start 04/09/17 at 22:00 SENTHIL FERRELL MD Apr 10, 2017 10:39
[2017-04-10 11:29] LABS: CK-MB 3.11 ng/ml (0.0-2.4); TROPONIN-I 2.46 ng/ml (0.00-0.12)
[2017-04-10] MEDS: DEXTROSE 5%-0.45% NACL 1,000 ML IV SCH (12:51)
--- NOTE | 2017-04-10 13:17 | RADRPT ---
Vent Rate: 80 bpm RR Interval: 0 msec MD Interval: 166 msec QRS Duration: 102 msec QT Interval: 416 msec QTC Interval: 479 msec P-R-T [place]: 76 - -42 - 101 degrees Sinus rhythm with premature atrial complexes Left axis deviation Incomplete right bundle branch block Septal infarct , age undetermined ST amp; T wave abnormality, consider lateral ischemia Abnormal ECG Electronically Signed By: Genaro Real [id number]
[2017-04-10] MEDS ORDERED: AMIKACIN IV PER PHARMACY XX SCH (13:30)
--- NOTE | 2017-04-10 13:43 | PN ---
DATE: 04/10/2017 SUBJECTIVE: Patient is awake. Complaining of diarrhea. No fevers overnight. LABORATORY DATA: WBC 10.1, platelets 224, neutrophils 81. MICROBIOLOGY: Blood cultures negative. DIAGNOSTICS: CT of the abdomen and pelvis revealed bilateral lower lobe airspace disease and bilate ral pleural effusions, questionable pneumonia, mild thickening of the lr of sigmoid colon and lef t colon with multiple diverticula. Findings are suggestive of borderline colitis or diverticulitis. No free fluid or free air, no gross focal fluid collections. Prostatomegaly, severe arteriosclero tic disease of the intraabdominal aorta and major arteries of the abdomen and pelvis. INDWELLINGS: The patient has AV fistula. ANTIMICROBIALS: He is on: 1. Zosyn. 2. Vancomycin. PHYSICAL EXAMINATION: GENERAL: This is a chronically ill-appearing, fragile, elderly man who is awake, in no distress. HEENT: Head atraumatic, normocephalic. Sclerae anicteric. Buccal mucosa dry. NECK: Supple. CHEST: Rise symmetrical. Breath sounds diminished to bases. HEART: S1, S2. ABDOMEN: Soft, bowel tones present. EXTREMITIES: Left foot gangrene. ASSESSMENT: 1. Systemic inflammatory response syndrome. 2. Severe diarrhea, possible Clostridium difficile colitis. 3. Left foot dry gangrene. 4. End-stage renal disease. 5. Anemia. 6. Severe peripheral arterial and vascular disease. 7. History of permanent pacemaker placement. 8. Questionable pneumonia. PLAN: We are going to change cefepime to amikacin, add Flagyl to the regimen. Send stool for Clost ridium difficile. Continue supportive care management per primary team and consultants. Dictated By: SHITAL MCKEON GUIDE SETTER for VANDA VALVERDE/ZACK Conf#: [id number] DID#: [id number]
[2017-04-10] MEDS ORDERED: AMIKACIN 475 MG in SOD CHLORIDE 0.9% 100 ML IVPB SCH (15:30)
[2017-04-10] MEDS: morphine 2 MG INJ IV PRN ×2 (15:36→19:52)
--- NOTE | 2017-04-10 18:34 | PN ---
Date/Time of Note Date/Time of Note DATE: 04/10/17 TIME: 18:33 Assessment/Plan VTE Prophylaxis VTE Prophylaxis Intervention: SCD's Lines/Catheters IV Catheter Type (from [facility]): Saline Lock Urinary Cath still in place: No Assessment/Plan Assessment/Plan -Diarrhea, rule out C. difficile colitis -Elevated troponin, Dr. Pike is asked to see patient in cardiology consultation -End-stage renal disease hemodialysis dependent. Dr. Wallace is following in nephrology consultation. Patient will undergo hemodialysis. -Hyperkalemia - possible PNA, continue abx. Dr Tobias is asked to see pt in ID consultation. - Left foot gangrenous wounds - Severe peripheral vascular disease with severe infrapopliteal disease and pedal disease. - Hypertension. - CAD - Permanent Pacemaker. - Legally blind - Anemia of chronic disease. Further recommendations based on clinical course. Plan of care discussed with Dr. French Exam/Review of Systems Vital Signs Vitals Vital Signs Date Time Temp Pulse Resp B/P Pulse Ox O2 Delivery O2 Flow Rate FiO2 04/10/17 16:00 91 04/10/17 15:43 98.5 19 142/67 100 04/09/17 08:19 Nasal Cannula 2.0 Intake and Output 04/09/17 04/09/17 04/10/17 15:00 23:00 07:00 Intake Total 650 ml 1022.5 ml 647.5 ml Output Total 6500 ml Balance -5850 ml 1022.5 ml 647.5 ml Results Result Diagram: 04/10/17 0417 04/10/17 0417 Results 24 hrs Laboratory Tests Test 04/09/17 22:01 04/10/17 04:17 04/10/17 10:17 04/10/17 12:39 Activated Partial Thromboplast Time 49.8 H 51.6 H 37.5 H White Blood Count 10.1 Red Blood Count 2.87 L Hemoglobin 7.7 L Hematocrit 23.3 L Mean Corpuscular Volume 81.2 L Mean Corpuscular Hemoglobin 26.8 L Mean Corpuscular Hemoglobin Concent 33.0 Red Cell Distribution Width 19.5 H Platelet Count 224 Mean Platelet Volume 9.9 Neutrophils % 81.0 H Lymphocytes % 5.7 L Monocytes % 11.0 Eosinophils % 1.4 Basophils % 0.5 Nucleated Red Blood Cells % 0.0 Neutrophils # 8.2 H Lymphocytes # 0.6 L Monocytes # 1.1 H Eosinophils # 0.1 Basophils # 0.1 Nucleated Red Blood Cells # 0.0 Sodium Level 140 Potassium Level 4.7 Chloride Level 100 Carbon Dioxide Level 24 Anion Gap 21 H Blood Urea Nitrogen 75 #H Creatinine 10.14 #H Glucose Level 119 Calcium Level 9.6 Creatine Kinase 39 Creatine Kinase Index 8.0 Creatinine Kinase MB (Mass) 3.11 H Troponin I 2.460 *H Medications Medications Current Medications Dextrose/Sodium Chloride (D5-1/2ns) 1,000 ml @ 50 mls/hr Q20H IV Last administered on 04/10/17 12:51; Admin Dose 50 MLS/HR; Start 04/08/17 at 23:30 Ondansetron HCl (Zofran Inj) 4 mg Q6H PRN IV NAUSEA AND/OR VOMITING; Start 04/08/17 at 23:30 Vancomycin HCl (Vancomycin Oral Syringe) 250 mg Q6 PO Last administered on 04/10 17:21; Admin Dose 250 MG; Start 04/09/17 at 00:00 Acetaminophen (Tylenol Tab) 650 mg Q4H PRN PO PAIN AND OR ELEVATED TEMP; Start 04/08/17 at 23:30 Acetaminophen/ Hydrocodone Bitart ([place] (5/325)) 1 tab Q4H PRN PO PAIN LEVEL 4 -6 Last administered on 04/10/17 12:56; Admin Dose 1 TAB; Start 04/08/17 at 23: 30 Amlodipine Besylate (Norvasc) 5 mg BID PO Last administered on 04/09/17 20:53 ; Admin Dose 5 MG; Start 04/09/17 at 09:00 Atorvastatin Calcium (Lipitor) 40 mg HS PO Last administered on 04/09/17 20:53 ; Admin Dose 40 MG; Start 04/09/17 at 21:00 Cinacalcet (Sensipar) 30 mg BID PO Last administered on 04/10/17 08:52; Admin Dose 30 MG; Start 04/09/17 at 09:00 Clopidogrel Bisulfate (plaVIX) 75 mg DAILY PO Last administered on 04/10/17 08 :53; Admin Dose 75 MG; Start 04/09/17 at 09:00 Diphenhydramine HCl (Benadryl) 25 mg Q6H PRN PO ITCHING; Start 04/08/17 at 23: 30 Carvedilol (Coreg) 3.125 mg BID PO Last administered on 04/09/17 20:54; Admin Dose 3.125 MG; Start 04/09/17 at 09:00 Aspirin (Aspirin) 81 mg DAILY PO ; Start 04/11/17 at 09:00 Amikacin Sulfate AMIKACIN PER PHARMACY NOTE XX ; Start 04/10/17 at 13:30 Amikacin Sulfate/ Sodium Chloride (Amikacin/NS) 101.9 ml @ 102 mls/hr ONCE IVPB Last administered on 04/10/17 15:59; Admin Dose 102 MLS/HR; Start at 15:30; Stop 04/10/17 at 23:00 Morphine Sulfate (morphine) 2 mg Q4H PRN IV SEVERE PAIN LEVEL 7-10 Last administered on 04/10/17 15:36; Admin Dose 2 MG; Start 04/10/17 at 15:30 IHSAN SULLIVAN Apr 10, 2017 18:34
--- NOTE | 2017-04-10 19:04 | RADRPT ---
Echocardiogram Report Patient Name: CHANG OLSON Gender: Male Date: 1955 Study Date: 10-Apr-2017 Frame Fixer: Pradip Sampson [facility] Location: [address] Ref. Physician: SENTHIL WETZEL Quality: Adequate Procedures: Transthoracic echocardiogram with complete 2D, M-Mode, and doppler examination. Indications: NH. 2D/M Mode Doppler Measurement Value Normal Ranges Measurement Value Normal Ranges LVIDd 2D 5.3 3.5 - 5.6 cm MARIA DOLORES Vmax 0.9 cm2 LVIDs 2D 4.4 2.1 - 4.1 cm MARIA DOLORES VTI 0.9 cm2 LVPWd 2D 1.3 0.6 - 1.1 cm AV Mean Adam 1.9 m/sec IVSd 2D 1.3 0.6 - 1.1 cm AV Mean PG 16.5 mmHg AoR Diam 2D 2.1 2.0 - 3.7 cm AV Peak Adam 2.8 m/sec EDV 2D 133.1 cm3 AV Peak PG 31.7 mmHg ESV 2D 82.4 cm3 AV VTI 57.4 cm LA Dimen 2D 5.0 2.3 - 4.0 cm LVOT Mean Adam 0.6 m/sec LVOT Diam 1.8 cm LVOT Mean PG 1.9 mmHg LVOT Peak Adam 1.0 m/sec LVOT Peak PG 3.5 mmHg LVOT VTI 21.7 cm TR Peak Adam 4.1 m/sec TR Peak PG 66.1 mmHg RVSP 74.0 mmHg Findings Left Ventricle: Normal left ventricular cavity size. Mild concentric left ventricular hypertrophy. Moderate global left ventricular systolic dysfunction. Ejection fraction is visually estimated at 40 %. Abnormal Diastolic Function. Right Ventricle: Normal right ventricular size. Normal right ventricular systolic function. Left Atrium: There is moderate enlargement of left atrium. Right Atrium: There is mild enlargement of right atrium. Mitral Valve: Mild mitral leaflet calcification. Mild mitral annular calcification. Moderate mitral valve regurgitation. Aortic Valve: Mild to moderate aortic stenosis. Aortic valve Max velocity 2.81 m/sec. Max PG 31.70 mmHg. Mean PG 16.50 mmHg. Aortic valve area 1.00 cm2. Tricuspid Valve: Normal appearance of the tricuspid valve. Estimated peak PA systolic pressure 74 mmHg. There is moderate tricuspid regurgitation. Pulmonic Valve: Pulmonic valve not well visualized. There is mild pulmonic regurgitation. Pericardium: Normal pericardium with no significant pericardial effusion. Aorta: Normal aortic root. IVC: Normal size with poor respiratory collapse consistent with elevated right atrial pressure. Conclusions 1.Normal left ventricular cavity size. Mild concentric left ventricular hypertrophy. Moderate global left ventricular systolic dysfunction. Ejection fraction is visually estimated at 40 %. Abnormal Diastolic Function. 2.There is moderate enlargement of left atrium. 3.There is mild enlargement of right atrium. 4.Mild mitral leaflet calcification. Mild mitral annular calcification. Moderate mitral valve regurgitation. 5.Mild to moderate aortic stenosis. Aortic valve Max velocity 2.81 m/sec. Max PG 31.70 mmHg. Mean PG 16.50 mmHg. Aortic valve area 1.00 cm2. 6.Normal appearance of the tricuspid valve. Estimated peak PA systolic pressure 74 mmHg. There is moderate tricuspid regurgitation. Electronically Signed By: Senthil Wetzel 10-Apr-2017 19:03:06 -0800 Patient Name: CHANG OLSON Study Date: 10-Apr-2017 [id number]
[2017-04-10] MEDS: ATORVASTATIN 40 MG TAB PO SCH (21:15)
[2017-04-11] VITALS (13 sets, daily range): BP systolic 129–162; BP diastolic 69–76; PULSE 69–85; RESP 18–22
[2017-04-11] MEDS: VANCOMYCIN HCL 250 MG/5ML POSYG PO SCH ×4 (00:09→18:28)
[2017-04-11] MEDS: morphine 2 MG INJ IV PRN ×4 (00:09→18:29)
--- NOTE | 2017-04-11 08:42 | CONS ---
Date/Time of Note Date/Time of Note DATE: 04/11/17 TIME: 08:38 Consult Date/Type/Reason Admit Date/Time Apr 08, 2017 at 21:31 Initial Consult Date 04/10/17 Type of Consultation: card Ordering Provider: POLY THRASHER MD Subjective Cardiology follow-up progress note (on behalf of Dr.Leo Barr) S: Discussed with staff and rhythm strip was reviewed. Patient remains in sinus rhythm. Denies any chest pain or pressure to me at this point. He still has gangrene foot and complains of pain. O: General: no acute distress HEENT: NC/AT. pupils are equal. round. NECK: NO JVD. no stridor. CV: RRR. systolic murmur; no gallop or rubs. PULM: +_ rhonchi. GI: SOFT, NT, ND, no rebound or guarding Extremity: + necrotic/GANGRENE toes/foot neuro: awake and alert, Psych: calm and pleasant rectal: deferred ECG: Normal sinus rhythm. ST-T wave abnormality consistent with inferolateral ischemia ECHO EF 40% Objective Vital Signs Date Time Temp Pulse Resp B/P Pulse Ox O2 Delivery O2 Flow Rate FiO2 04/11/17 08:27 72 04/11/17 07:21 98.3 19 149/70 99 04/09/17 08:19 Nasal Cannula 2.0 Intake and Output 04/10/17 04/10/17 04/11/17 15:00 23:00 07:00 Intake Total 500 ml 301.9 ml 400 ml Output Total 2000 ml 1500 ml Balance -1500 ml -1198.1 ml 400 ml Results/Medications Result Diagram: 04/10/17 0417 04/10/17 0417 Results 24 hrs Laboratory Tests Test 04/10/17 10:17 04/10/17 12:39 Creatine Kinase 39 Creatine Kinase Index 8.0 Creatinine Kinase MB (Mass) 3.11 H Troponin I 2.460 *H Activated Partial Thromboplast Time 37.5 H Medications Current Medications Dextrose/Sodium Chloride (D5-1/2ns) 1,000 ml @ 50 mls/hr Q20H IV Last administered on 04/10/17t 12:51; Admin Dose 50 MLS/HR; Start 04/08/17 at 23:30 Ondansetron HCl (Zofran Inj) 4 mg Q6H PRN IV NAUSEA AND/OR VOMITING; Start 04/08/17 at 23:30 Vancomycin HCl (Vancomycin Oral Syringe) 250 mg Q6 PO Last administered on 04/11 05:57; Admin Dose 250 MG; Start 04/09/17 at 00:00 Acetaminophen (Tylenol Tab) 650 mg Q4H PRN PO PAIN AND OR ELEVATED TEMP; Start 04/08/17 at 23:30 Acetaminophen/ Hydrocodone Bitart ([place] (5/325)) 1 tab Q4H PRN PO PAIN LEVEL 4 -6 Last administered on 04/10/17 12:56; Admin Dose 1 TAB; Start 04/08/17 at 23: 30 Amlodipine Besylate (Norvasc) 5 mg BID PO Last administered on 04/10/17 21:16 ; Admin Dose 5 MG; Start 04/09/17 at 09:00 Atorvastatin Calcium (Lipitor) 40 mg HS PO Last administered on 04/10/17 21:15 ; Admin Dose 40 MG; Start 04/09/17 at 21:00 Cinacalcet (Sensipar) 30 mg BID PO Last administered on 04/10/17 21:15; Admin Dose 30 MG; Start 04/09/17 at 09:00 Clopidogrel Bisulfate (plaVIX) 75 mg DAILY PO Last administered on 04/10/17 08 :53; Admin Dose 75 MG; Start 04/09/17 at 09:00 Diphenhydramine HCl (Benadryl) 25 mg Q6H PRN PO ITCHING; Start 04/08/17 at 23: 30 Carvedilol (Coreg) 3.125 mg BID PO Last administered on 04/10/17 21:16; Admin Dose 3.125 MG; Start 04/09/17 at 09:00 Aspirin (Aspirin) 81 mg DAILY PO ; Start 04/11/17 at 09:00 Amikacin Sulfate (Amikacin Iv Per Pharmacy) AMIKACIN PER PHARMACY NOTE XX ; Start 04/10/17 at 13:30 Morphine Sulfate (morphine) 2 mg Q4H PRN IV SEVERE PAIN LEVEL 7-10 Last administered on 04/11/17 05:57; Admin Dose 2 MG; Start 04/10/17 at 15:30 Assessment/Plan Chief Complaint/Hosp Course 1. Non-ST elevation myocardial infarction 2. End-stage renal disease on hemodialysis 3. Severe peripheral vascular disease 4. Gangrene of toe/foot 5. Diabetes 6. Dyslipidemia 7. Congestive heart failure: EF 40% 8. Severe and worsening anemia 9. Known severe coronary artery disease including calcified left main disease 10. Ischemic cardiomyopathy Recommendations: I will CONT aspirin to 81 mg. off of heparin drip now We will try to manage the patient with continued and aggressive medical therapy as much as possible. Antibiotic will be managed as per internal medicine IDs recommendations. I will try to review the old films which was done not too long ago at [facility] to review his coronary angiogram. Based on information I have so far he does not appear to be amenable to any intervention safely or bypass surgery. Consider CT surgery consultation but I highly doubt the patient would be a reasonable candidate for coronary bypass graft Hemodialysis as per renal. Consider transfusing the patient given his acute FL to keep the hemoglobin above 9 at least. today's lab is still pending Thank you for his referral. SENTHIL FERRELL MD [facility] Problems: SENTHIL FERRELL MD Apr 11, 2017 08:42
[2017-04-11 08:55] LABS: ABNORMAL IP MESSAGE 1; BASOPHIL # 0.1 10^3/ul (0.0-0.1); BASOPHILS % 0.6 % (0.0-2.0); EOSINOPHILS # 0.1 10^3/ul (0.0-0.5); EOSINOPHILS % 0.8 % (0.0-7.0); HEMATOCRIT 24.7 % (42.0-52.0); HEMOGLOBIN 7.8 g/dl (14.0-18.0); LYMPHOCYTES # 0.6 10^3/ul (0.8-2.9); MEAN CORPUSCULAR HEMOGLOBIN 26.2 pg (29.0-33.0); MEAN CORPUSCULAR HGB CONC 31.6 g/dl (32.0-37.0); MEAN CORPUSCULAR VOLUME 82.9 fl (82.0-101.0); MEAN PLATELET VOLUME 9.8 fl (7.4-10.4); MONOCYTE # 1.4 10^3/ul (0.3-0.9); MONOCYTES % 12.1 % (0.0-11.0); NEUTROPHILS % 80.6 % (39.0-77.0); PLATELET COUNT 228 10^3/UL (140-415); POSITIVE DIFF @See below; RED BLOOD COUNT 2.98 10^6/ul (4.70-6.10); RED CELL DISTRIBUTION WIDTH 19.6 % (11.5-14.5); WHITE BLOOD COUNT 11.2 10^3/ul (4.8-10.8)
[2017-04-11] MEDS: CALCIUM ACETATE 667 MG CAP PO SCH ×3 (09:00→18:28)
[2017-04-11] MEDS: ASPIRIN 81 MG TAB PO SCH (09:00)
[2017-04-11] MEDS: CINACALCET 30 MG TAB PO SCH ×2 (09:00→21:07)
[2017-04-11] MEDS: SEVELAMER 800 MG TAB PO SCH ×3 (09:00→18:28)
[2017-04-11] MEDS: CLOPIDOGREL 75 MG TAB PO SCH (09:01)
[2017-04-11] MEDS: AMLODIPINE 5 MG TAB PO SCH ×2 (09:01→21:07)
[2017-04-11] MEDS: BALSAM PERU/CASTOR OIL 60 GM TUBE TOP SCH ×2 (09:02→21:08)
[2017-04-11 09:36] LABS: ALBUMIN 3.2 g/dl (3.3-4.9); ALBUMIN/GLOBULIN RATIO 1.06; BILIRUBIN,INDIRECT 0.1 mg/dl (0-1.1); BILIRUBIN,TOTAL 0.1 mg/dl (0.2-1.3); CREATININE 7.72 mg/dl (0.61-1.24); MAGNESIUM 2.2 mg/dl (1.7-2.5); POTASSIUM 4.8 mmol/L (3.5-5.1); TOTAL PROTEIN 6.2 g/dl (6.1-8.1)
[2017-04-11 09:51] LABS: CK-MB 1.02 ng/ml (0.0-2.4); TROPONIN-I 1.81 ng/ml (0.00-0.12)
[2017-04-11] MEDS: DEXTROSE 5%-0.45% NACL 1,000 ML IV SCH (11:30)
--- NOTE | 2017-04-11 14:09 | CONS ---
Date/Time of Note Date/Time of Note DATE: 04/11/17 TIME: 14:08 Assessment/Plan Assessment/Plan Chief Complaint/Hosp Course SUBJECTIVE: Patient is awake. Complaining of diarrhea. No fevers overnight. MICROBIOLOGY: Blood cultures negative. INDWELLINGS: The patient has AV fistula. ANTIMICROBIALS: He is on: 1. Amikacin. 2. Vancomycin IV/PO. PHYSICAL EXAMINATION: GENERAL: This is a chronically ill-appearing, fragile, elderly man who is awake , in no distress. HEENT: Head atraumatic, normocephalic. Sclerae anicteric. Buccal mucosa dry. NECK: Supple. CHEST: Rise symmetrical. Breath sounds diminished to bases. HEART: S1, S2. ABDOMEN: Soft, bowel tones present. EXTREMITIES: Left foot gangrene. ASSESSMENT: 1. Systemic inflammatory response syndrome. 2. Clostridium difficile colitis. 3. Left foot dry gangrene. 4. End-stage renal disease. 5. Anemia. 6. Severe peripheral arterial and vascular disease. 7. History of permanent pacemaker placement. PLAN: Stable, will keep on PO Tony[place], milvia other abx staff Problems: Consultation Date/Type/Reason Admit Date/Time Apr 08, 2017 at 21:31 Initial Consult Date 04/10/17 Type of Consultation: ID Referring Provider: POLY THRASHER MD Exam/Review of Systems Vital Signs Vitals Vital Signs Date Time Temp Pulse Resp B/P Pulse Ox O2 Delivery O2 Flow Rate FiO2 04/11/17 13:14 69 04/11/17 12:00 98.0 20 158/75 100 04/09/17 08:19 Nasal Cannula 2.0 Intake and Output 04/10/17 04/10/17 04/11/17 14:59 22:59 06:59 Intake Total 597.5 ml 301.9 ml 400 ml Output Total 2000 ml 1500 ml Balance -1402.5 ml -1198.1 ml 400 ml Results Result Diagram: 04/11/17 0759 04/11/17 0759 Results 24 hrs Laboratory Tests Test 04/11/17 07:59 White Blood Count 11.2 H Red Blood Count 2.98 L Hemoglobin 7.8 L Hematocrit 24.7 L Mean Corpuscular Volume 82.9 Mean Corpuscular Hemoglobin 26.2 L Mean Corpuscular Hemoglobin Concent 31.6 L Red Cell Distribution Width 19.6 H Platelet Count 228 Mean Platelet Volume 9.8 Neutrophils % 80.6 H Lymphocytes % 5.0 L Monocytes % 12.1 H Eosinophils % 0.8 Basophils % 0.6 Nucleated Red Blood Cells % 0.0 Neutrophils # 9.0 H Lymphocytes # 0.6 L Monocytes # 1.4 H Eosinophils # 0.1 Basophils # 0.1 Nucleated Red Blood Cells # 0.0 Sodium Level 141 Potassium Level 4.8 Chloride Level 100 Carbon Dioxide Level 28 Anion Gap 18 H Blood Urea Nitrogen 54 H Creatinine 7.72 #H Glucose Level 87 Calcium Level 10.0 Magnesium Level 2.2 Total Bilirubin 0.1 L Direct Bilirubin 0.00 Indirect Bilirubin 0.1 Aspartate Amino Transf (AST/SGOT) 15 Alanine Aminotransferase (ALT/SGPT) 32 Alkaline Phosphatase 161 H Creatine Kinase 22 L Creatine Kinase Index 4.6 Creatinine Kinase MB (Mass) 1.02 Troponin I 1.810 *H Total Protein 6.2 Albumin 3.2 L Globulin 3.00 Albumin/Globulin Ratio 1.06 Medications Medications Current Medications Dextrose/Sodium Chloride (D5-1/2ns) 1,000 ml @ 50 mls/hr Q20H IV Last administered on 04/10/17 12:51; Admin Dose 50 MLS/HR; Start 04/08/17 at 23:30 Ondansetron HCl (Zofran Inj) 4 mg Q6H PRN IV NAUSEA AND/OR VOMITING; Start 04/08/17 at 23:30 Vancomycin HCl (Vancomycin Oral Syringe) 250 mg Q6 PO Last administered on 04/11 12:38; Admin Dose 250 MG; Start 04/09/17 at 00:00 Acetaminophen (Tylenol Tab) 650 mg Q4H PRN PO PAIN AND OR ELEVATED TEMP; Start 04/08/17 at 23:30 Acetaminophen/ Hydrocodone Bitart ([place] (5/325)) 1 tab Q4H PRN PO PAIN LEVEL 4 -6 Last administered on 04/10/17 12:56; Admin Dose 1 TAB; Start 04/08/17 at 23: 30 Amlodipine Besylate (Norvasc) 5 mg BID PO Last administered on 04/11/17 09:01 ; Admin Dose 5 MG; Start 04/09/17 at 09:00 Atorvastatin Calcium (Lipitor) 40 mg HS PO Last administered on 04/10/17 21:15 ; Admin Dose 40 MG; Start 04/09/17 at 21:00 Cinacalcet (Sensipar) 30 mg BID PO Last administered on 04/11/17 09:00; Admin Dose 30 MG; Start 04/09/17 at 09:00 Clopidogrel Bisulfate (plaVIX) 75 mg DAILY PO Last administered on 04/11/17 09 :01; Admin Dose 75 MG; Start 04/09/17 at 09:00 Diphenhydramine HCl (Benadryl) 25 mg Q6H PRN PO ITCHING; Start 04/08/17 at 23: 30 Carvedilol (Coreg) 3.125 mg BID PO Last administered on 04/11/17 09:01; Admin Dose 3.125 MG; Start 04/09/17 at 09:00 Aspirin (Aspirin) 81 mg DAILY PO Last administered on 04/11/17 09:00; Admin Dose 81 MG; Start 04/11/17 at 09:00 Amikacin Sulfate (Amikacin Iv Per Pharmacy) AMIKACIN PER PHARMACY NOTE XX ; Start 04/10/17 at 13:30 Morphine Sulfate (morphine) 2 mg Q4H PRN IV SEVERE PAIN LEVEL 7-10 Last administered on 04/11/17 12:40; Admin Dose 2 MG; Start 04/10/17 at 15:30 Miscellaneous Information (*Rx Drug Level Order Reminder*) RANDOM VANCOMYCIN ON ... ONCE ONCE XX ; Start 04/12/17 at 05:00; Stop 04/12/17 at 05:01 SHITAL MCKEON NP Apr 11, 2017 14:09
[2017-04-11] MEDS: L ACIDOPHIL/B LACTIS/B LONGUM CAPSULE PO SCH ×2 (14:30→23:30)
[2017-04-11] MEDS ORDERED: SOD CHLORIDE 0.9% 250 ML IV* ONE (15:49)
--- NOTE | 2017-04-11 15:55 | CONS ---
Date/Time of Note Date/Time of Note DATE: 04/11/17 TIME: 15:53 Assessment/Plan Assessment/Plan Additional Assessment/Plan 61 yo male with 1)Abd Pain and Diarrhea, Possible C. difficile colitis 2)Elevated troponin, CAD 3)End-stage renal disease hemodialysis dependent 4)Hyperkalemia 5)Left foot gangrenous wounds 6)Severe peripheral vascular disease with severe infrapopliteal disease and pedal disease. 7)Hypertension. 8)CAD 9)Permanent Pacemaker. 10)Legally blind 11)Anemia of chronic disease 12)Possible Pna vs Edema Recommend repeat CXR On PO Vanco ID seen, DC IV abx S/p HD yesterday Will order HD tomorrow with UF as tolerated PRBC with HD tomorrow as well. Repeat H/Hct and chemistry in am thank you for the opportunity to participate in the care of Mr Thibodeaux. Consultation Date/Type/Reason Admit Date/Time Apr 08, 2017 at 21:31 Initial Consult Date 04/10/17 Type of Consultation: Renal Referring Provider: POLY THRASHER MD 24 HR Interval Summary Free Text/Dictation Plan for PRBC transfusion today and tomorrow. S/p HD yesterday Constitutional: No requiring O2 Exam/Review of Systems Vital Signs Vitals Vital Signs Date Time Temp Pulse Resp B/P Pulse Ox O2 Delivery O2 Flow Rate FiO2 04/11/17 13:14 69 04/11/17 12:00 98.0 20 158/75 100 04/09/17 08:19 Nasal Cannula 2.0 Intake and Output 04/10/17 04/10/17 04/11/17 15:00 23:00 07:00 Intake Total 500 ml 301.9 ml 400 ml Output Total 2000 ml 1500 ml Balance -1500 ml -1198.1 ml 400 ml Exam Constitutional: No distress ENMT: mucosa pink and moist Neck: No jvd Respiratory: clear to auscultation Cardiovascular: regular rate and rhythm, No edema Gastrointestinal: non-tender, soft Extremities: No edema Neurological: No confused, No lethargic Skin: No diaphoresis Results Result Diagram: 04/11/17 0759 04/11/17 0759 Results 24 hrs Laboratory Tests Test 04/11/17 07:59 White Blood Count 11.2 H Red Blood Count 2.98 L Hemoglobin 7.8 L Hematocrit 24.7 L Mean Corpuscular Volume 82.9 Mean Corpuscular Hemoglobin 26.2 L Mean Corpuscular Hemoglobin Concent 31.6 L Red Cell Distribution Width 19.6 H Platelet Count 228 Mean Platelet Volume 9.8 Neutrophils % 80.6 H Lymphocytes % 5.0 L Monocytes % 12.1 H Eosinophils % 0.8 Basophils % 0.6 Nucleated Red Blood Cells % 0.0 Neutrophils # 9.0 H Lymphocytes # 0.6 L Monocytes # 1.4 H Eosinophils # 0.1 Basophils # 0.1 Nucleated Red Blood Cells # 0.0 Sodium Level 141 Potassium Level 4.8 Chloride Level 100 Carbon Dioxide Level 28 Anion Gap 18 H Blood Urea Nitrogen 54 H Creatinine 7.72 #H Glucose Level 87 Calcium Level 10.0 Magnesium Level 2.2 Total Bilirubin 0.1 L Direct Bilirubin 0.00 Indirect Bilirubin 0.1 Aspartate Amino Transf (AST/SGOT) 15 Alanine Aminotransferase (ALT/SGPT) 32 Alkaline Phosphatase 161 H Creatine Kinase 22 L Creatine Kinase Index 4.6 Creatinine Kinase MB (Mass) 1.02 Troponin I 1.810 *H Total Protein 6.2 Albumin 3.2 L Globulin 3.00 Albumin/Globulin Ratio 1.06 Medications Medications Current Medications Dextrose/Sodium Chloride (D5-1/2ns) 1,000 ml @ 50 mls/hr Q20H IV Last administered on 04/10/17 12:51; Admin Dose 50 MLS/HR; Start 04/08/17 at 23:30 Ondansetron HCl (Zofran Inj) 4 mg Q6H PRN IV NAUSEA AND/OR VOMITING; Start 04/08/17 at 23:30 Vancomycin HCl (Vancomycin Oral Syringe) 250 mg Q6 PO Last administered on 04/11 12:38; Admin Dose 250 MG; Start 04/09/17 at 00:00 Acetaminophen (Tylenol Tab) 650 mg Q4H PRN PO PAIN AND OR ELEVATED TEMP; Start 04/08/17 at 23:30 Acetaminophen/ Hydrocodone Bitart ([place] (5/325)) 1 tab Q4H PRN PO PAIN LEVEL 4 -6 Last administered on 04/10/17 12:56; Admin Dose 1 TAB; Start 04/08/17 at 23: 30 Amlodipine Besylate (Norvasc) 5 mg BID PO Last administered on 04/11/17 09:01 ; Admin Dose 5 MG; Start 04/09/17 at 09:00 Atorvastatin Calcium (Lipitor) 40 mg HS PO Last administered on 04/10/17 21:15 ; Admin Dose 40 MG; Start 04/09/17 at 21:00 Cinacalcet (Sensipar) 30 mg BID PO Last administered on 04/11/17 09:00; Admin Dose 30 MG; Start 04/09/17 at 09:00 Clopidogrel Bisulfate (plaVIX) 75 mg DAILY PO Last administered on 04/11/17 09 :01; Admin Dose 75 MG; Start 04/09/17 at 09:00 Diphenhydramine HCl (Benadryl) 25 mg Q6H PRN PO ITCHING; Start 04/08/17 at 23: 30 Carvedilol (Coreg) 3.125 mg BID PO Last administered on 04/11/17 09:01; Admin Dose 3.125 MG; Start 04/09/17 at 09:00 Aspirin (Aspirin) 81 mg DAILY PO Last administered on 04/11/17 09:00; Admin Dose 81 MG; Start 04/11/17 at 09:00 Morphine Sulfate (morphine) 2 mg Q4H PRN IV SEVERE PAIN LEVEL 7-10 Last administered on 04/11/17 12:40; Admin Dose 2 MG; Start 04/10/17 at 15:30 Lactobacillus Acidophilus (Florajen3 Capsule) 1 each BID PO ; Start 04/11/17 at 14:30 PIPER FELIX MD Apr 11, 2017 15:55
--- NOTE | 2017-04-11 16:01 | PN ---
Date/Time of Note Date/Time of Note DATE: 04/11/17 TIME: 15:58 Assessment/Plan VTE Prophylaxis VTE Prophylaxis Intervention: SCD's Lines/Catheters IV Catheter Type (from [facility]): [facility] Urinary Cath still in place: No Assessment/Plan Chief Complaint/Hosp Course Patient's hemoglobin is 7.8 since patient had elevated troponin we will transfuse 1 unit of packed red blood cells today and 1 more unit with next hemodialysis. Assessment/Plan -C. difficile colitis, continue vancomycin p.o. Dr. Tobias is following in infection disease consultation. -Elevated troponin, allowing in cardiology consultation. -End-stage renal disease hemodialysis dependent. Dr. Wallace is following in nephrology consultation. Continue hemodialysis. -Hyperkalemia - Possible PNA, continue abx. Dr Tobias is asked to see pt in ID consultation. - Left foot gangrenous wounds - Severe peripheral vascular disease with severe infrapopliteal disease and pedal disease. - Hypertension. - CAD - Permanent Pacemaker. - Legally blind - Anemia of chronic disease. Further recommendations based on clinical course. Plan of care discussed with Dr. French Further recommendations based on clinical course. Plan of care discussed with Dr. French. Problems: Exam/Review of Systems Vital Signs Vitals Vital Signs Date Time Temp Pulse Resp B/P Pulse Ox O2 Delivery O2 Flow Rate FiO2 04/11/17 13:14 69 04/11/17 12:00 98.0 20 158/75 100 04/09/17 08:19 Nasal Cannula 2.0 Intake and Output 04/10/17 04/10/17 04/11/17 14:59 22:59 06:59 Intake Total 597.5 ml 301.9 ml 400 ml Output Total 2000 ml 1500 ml Balance -1402.5 ml -1198.1 ml 400 ml Exam Constitutional: alert, oriented Eyes: other (Blind) Neck: supple Respiratory: diminished breath sounds Cardiovascular: other (Paced rhythm) Gastrointestinal: soft, tender Musculoskeletal: nl extremities to inspection (Right heel gangrenous wound, left foot gangrene) Extremities: normal pulses, other (Bilateral feet gangrene) Neurological: nl mental status Skin: nl turgor Results Result Diagram: 04/11/17 0759 04/11/17 0759 Results 24 hrs Laboratory Tests Test 04/11/17 07:59 White Blood Count 11.2 H Red Blood Count 2.98 L Hemoglobin 7.8 L Hematocrit 24.7 L Mean Corpuscular Volume 82.9 Mean Corpuscular Hemoglobin 26.2 L Mean Corpuscular Hemoglobin Concent 31.6 L Red Cell Distribution Width 19.6 H Platelet Count 228 Mean Platelet Volume 9.8 Neutrophils % 80.6 H Lymphocytes % 5.0 L Monocytes % 12.1 H Eosinophils % 0.8 Basophils % 0.6 Nucleated Red Blood Cells % 0.0 Neutrophils # 9.0 H Lymphocytes # 0.6 L Monocytes # 1.4 H Eosinophils # 0.1 Basophils # 0.1 Nucleated Red Blood Cells # 0.0 Sodium Level 141 Potassium Level 4.8 Chloride Level 100 Carbon Dioxide Level 28 Anion Gap 18 H Blood Urea Nitrogen 54 H Creatinine 7.72 #H Glucose Level 87 Calcium Level 10.0 Magnesium Level 2.2 Total Bilirubin 0.1 L Direct Bilirubin 0.00 Indirect Bilirubin 0.1 Aspartate Amino Transf (AST/SGOT) 15 Alanine Aminotransferase (ALT/SGPT) 32 Alkaline Phosphatase 161 H Creatine Kinase 22 L Creatine Kinase Index 4.6 Creatinine Kinase MB (Mass) 1.02 Troponin I 1.810 *H Total Protein 6.2 Albumin 3.2 L Globulin 3.00 Albumin/Globulin Ratio 1.06 Medications Medications Current Medications Dextrose/Sodium Chloride (D5-1/2ns) 1,000 ml @ 50 mls/hr Q20H IV Last administered on 04/10/17 12:51; Admin Dose 50 MLS/HR; Start 04/08/17 at 23:30 Ondansetron HCl (Zofran Inj) 4 mg Q6H PRN IV NAUSEA AND/OR VOMITING; Start 04/08/17 at 23:30 Vancomycin HCl (Vancomycin Oral Syringe) 250 mg Q6 PO Last administered on 04/11 12:38; Admin Dose 250 MG; Start 04/09/17 at 00:00 Acetaminophen (Tylenol Tab) 650 mg Q4H PRN PO PAIN AND OR ELEVATED TEMP; Start 04/08/17 at 23:30 Acetaminophen/ Hydrocodone Bitart ([place] (5/325)) 1 tab Q4H PRN PO PAIN LEVEL 4 -6 Last administered on 04/10/17 12:56; Admin Dose 1 TAB; Start 04/08/17 at 23: 30 Amlodipine Besylate (Norvasc) 5 mg BID PO Last administered on 04/11/17 09:01 ; Admin Dose 5 MG; Start 04/09/17 at 09:00 Atorvastatin Calcium (Lipitor) 40 mg HS PO Last administered on 04/10/17 21:15 ; Admin Dose 40 MG; Start 04/09/17 at 21:00 Cinacalcet (Sensipar) 30 mg BID PO Last administered on 04/11/17 09:00; Admin Dose 30 MG; Start 04/09/17 at 09:00 Clopidogrel Bisulfate (plaVIX) 75 mg DAILY PO Last administered on 04/11/17 09 :01; Admin Dose 75 MG; Start 04/09/17 at 09:00 Diphenhydramine HCl (Benadryl) 25 mg Q6H PRN PO ITCHING; Start 04/08/17 at 23: 30 Carvedilol (Coreg) 3.125 mg BID PO Last administered on 04/11/17 09:01; Admin Dose 3.125 MG; Start 04/09/17 at 09:00 Aspirin (Aspirin) 81 mg DAILY PO Last administered on 04/11/17 09:00; Admin Dose 81 MG; Start 04/11/17 at 09:00 Morphine Sulfate (morphine) 2 mg Q4H PRN IV SEVERE PAIN LEVEL 7-10 Last administered on 04/11/17 12:40; Admin Dose 2 MG; Start 04/10/17 at 15:30 Lactobacillus Acidophilus 1 each 1 each BID PO ; Start 04/11/17 at 14:30 Sodium Chloride (NS) 250 ml @ 0 mls/hr Q0M ONCE IV* ; Start 04/11/17 at 15:49; Stop 04/11/17 at 15:50; Status VIV OLVERA Apr 11, 2017 16:01
[2017-04-11] MEDS ORDERED: AMIKACIN 325 MG in SOD CHLORIDE 0.9% 100 ML IVPB SCH (17:00)
[2017-04-11] MEDS: ATORVASTATIN 40 MG TAB PO SCH (21:07)
[2017-04-12] VITALS (19 sets, daily range): BP systolic 149–173; BP diastolic 71–105; PULSE 69–77; RESP 18–20
[2017-04-12] MEDS: VANCOMYCIN HCL 250 MG/5ML POSYG PO SCH ×4 (05:58→18:14)
[2017-04-12 06:17] LABS: BASOPHIL # 0.1 10^3/ul (0.0-0.1); BASOPHILS % 0.7 % (0.0-2.0); EOSINOPHILS # 0.2 10^3/ul (0.0-0.5); EOSINOPHILS % 1.7 % (0.0-7.0); LYMPHOCYTES # 0.6 10^3/ul (0.8-2.9); LYMPHOCYTES % 5.8 % (15.0-51.0); MEAN CORPUSCULAR HEMOGLOBIN 26.6 pg (29.0-33.0); MEAN CORPUSCULAR HGB CONC 32.1 g/dl (32.0-37.0); MEAN CORPUSCULAR VOLUME 82.8 fl (82.0-101.0); MEAN PLATELET VOLUME 9.8 fl (7.4-10.4); MONOCYTE # 1.2 10^3/ul (0.3-0.9); MONOCYTES % 11.3 % (0.0-11.0); NEUTROPHIL # 8.6 10^3/ul (1.6-7.5); NEUTROPHILS % 79.5 % (39.0-77.0); PLATELET COUNT 231 10^3/UL (140-415); RED BLOOD COUNT 3.38 10^6/ul (4.70-6.10); RED CELL DISTRIBUTION WIDTH 18.8 % (11.5-14.5); WHITE BLOOD COUNT 10.9 10^3/ul (4.8-10.8)
[2017-04-12 06:44] LABS: CALCIUM 10.4 mg/dl (8.4-10.2); CREATININE 9.38 mg/dl (0.61-1.24)
[2017-04-12 07:08] LABS: POTASSIUM 5.4 mmol/L (3.5-5.1)
[2017-04-12] MEDS: DEXTROSE 5%-0.45% NACL 1,000 ML IV SCH ×2 (07:30→21:15)
[2017-04-12] MEDS: ASPIRIN 81 MG TAB PO SCH (08:39)
[2017-04-12] MEDS: AMLODIPINE 5 MG TAB PO SCH ×2 (08:39→21:15)
[2017-04-12] MEDS: CLOPIDOGREL 75 MG TAB PO SCH (08:39)
[2017-04-12] MEDS: CINACALCET 30 MG TAB PO SCH ×2 (08:39→21:11)
[2017-04-12] MEDS: L ACIDOPHIL/B LACTIS/B LONGUM CAPSULE PO SCH ×2 (08:41→21:11)
[2017-04-12] MEDS: SEVELAMER 800 MG TAB PO SCH ×3 (08:48→18:13)
[2017-04-12] MEDS: CALCIUM ACETATE 667 MG CAP PO SCH ×3 (08:49→18:13)
[2017-04-12] MEDS: BALSAM PERU/CASTOR OIL 60 GM TUBE TOP SCH ×2 (09:00→21:16)
[2017-04-12] MEDS: morphine 2 MG INJ IV PRN ×3 (09:17→21:17)
--- NOTE | 2017-04-12 11:10 | PN ---
Date/Time of Note Date/Time of Note DATE: 04/12/17 TIME: 11:09 Assessment/Plan VTE Prophylaxis VTE Prophylaxis Intervention: other Lines/Catheters IV [facility]from [facility] Urinary Cath still in place: No Assessment/Plan Chief Complaint/Hosp Course -C. difficile colitis, continue vancomycin p.o. Dr. Tobias is following in infection disease consultation. -Elevated troponin, allowing in cardiology consultation. -End-stage renal disease hemodialysis dependent. Dr. Wallace is following in nephrology consultation. Continue hemodialysis. -Hyperkalemia - Possible PNA, continue abx. Dr Tobias is asked to see pt in ID consultation. - Left foot gangrenous wounds - Severe peripheral vascular disease with severe infrapopliteal disease and pedal disease. - Hypertension. - CAD - Permanent Pacemaker. - Legally blind - Anemia of chronic disease. Problems: Subjective 24 Hr Interval Summary Free Text/Dictation Patient complain of leg pain Exam/Review of Systems Vital Signs Vitals Vital Signs Date Time Temp Pulse Resp B/P Pulse Ox O2 Delivery O2 Flow Rate FiO2 04/12/17 11:07 97.4 70 20 153/76 95 04/09/17 08:19 Nasal Cannula 2.0 Intake and Output 04/11/17 04/11/17 04/12/17 15:00 23:00 07:00 Intake Total 500 ml Balance 500 ml Exam Constitutional: well developed Head: atraumatic, normocephalic Neck: supple Respiratory: clear to auscultation Cardiovascular: regular rate and rhythm Gastrointestinal: non-tender, soft Extremities: normal pulses Results Result Diagram: 04/12/17 0519 04/12/17 0519 Results 24 hrs Laboratory Tests Test 04/12/17 05:19 White Blood Count 10.9 H Red Blood Count 3.38 L Hemoglobin 9.0 L Hematocrit 28.0 L Mean Corpuscular Volume 82.8 Mean Corpuscular Hemoglobin 26.6 L Mean Corpuscular Hemoglobin Concent 32.1 Red Cell Distribution Width 18.8 H Platelet Count 231 Mean Platelet Volume 9.8 Neutrophils % 79.5 H Lymphocytes % 5.8 L Monocytes % 11.3 H Eosinophils % 1.7 Basophils % 0.7 Nucleated Red Blood Cells % 0.0 Neutrophils # 8.6 H Lymphocytes # 0.6 L Monocytes # 1.2 H Eosinophils # 0.2 Basophils # 0.1 Nucleated Red Blood Cells # 0.0 Sodium Level 140 Potassium Level 5.4 H Chloride Level 98 Carbon Dioxide Level 26 Anion Gap 21 H Blood Urea Nitrogen 69 H Creatinine 9.38 H Glucose Level 91 Calcium Level 10.4 H Medications Medications Current Medications Dextrose/Sodium Chloride (D5-1/2ns) 1,000 ml @ 50 mls/hr Q20H IV Last administered on 04/12/17 07:30; Admin Dose 50 MLS/HR; Start 04/08/17 at 23:30 Ondansetron HCl (Zofran Inj) 4 mg Q6H PRN IV NAUSEA AND/OR VOMITING; Start 04/08/17 at 23:30 Vancomycin HCl (Vancomycin Oral Syringe) 250 mg Q6 PO Last administered on 04/12 05:58; Admin Dose 250 MG; Start 04/09/17 at 00:00 Acetaminophen (Tylenol Tab) 650 mg Q4H PRN PO PAIN AND OR ELEVATED TEMP; Start 04/08/17 at 23:30 Acetaminophen/ Hydrocodone Bitart ([place] (5/325)) 1 tab Q4H PRN PO PAIN LEVEL 4 -6 Last administered on 04/10/17 12:56; Admin Dose 1 TAB; Start 04/08/17 at 23: 30 Amlodipine Besylate (Norvasc) 5 mg BID PO Last administered on 04/12/17 08:39 ; Admin Dose 5 MG; Start 04/09/17 at 09:00 Atorvastatin Calcium (Lipitor) 40 mg HS PO Last administered on 04/11/17 21:07 ; Admin Dose 40 MG; Start 04/09/17 at 21:00 Cinacalcet (Sensipar) 30 mg BID PO Last administered on 04/12/17 08:39; Admin Dose 30 MG; Start 04/09/17 at 09:00 Clopidogrel Bisulfate (plaVIX) 75 mg DAILY PO Last administered on 04/12/17 08 :39; Admin Dose 75 MG; Start 04/09/17 at 09:00 Diphenhydramine HCl (Benadryl) 25 mg Q6H PRN PO ITCHING; Start 04/08/17 at 23: 30 Carvedilol (Coreg) 3.125 mg BID PO Last administered on 04/12/17 08:40; Admin Dose 3.125 MG; Start 04/09/17 at 09:00 Aspirin (Aspirin) 81 mg DAILY PO Last administered on 04/12/17 08:39; Admin Dose 81 MG; Start 04/11/17 at 09:00 Morphine Sulfate (morphine) 2 mg Q4H PRN IV SEVERE PAIN LEVEL 7-10 Last administered on 04/12/17 09:17; Admin Dose 2 MG; Start 04/10/17 at 15:30 Lactobacillus Acidophilus (Florajen3 Capsule) 1 each BID PO Last administered on 04/12/17 08:41; Admin Dose 1 EACH; Start 04/11/17 at 14:30 FELISA TRIMBLE Apr 12, 2017 11:10
--- NOTE | 2017-04-12 12:46 | CONS ---
Date/Time of Note Date/Time of Note DATE: 04/12/17 TIME: 12:45 Assessment/Plan Assessment/Plan Additional Assessment/Plan 61 yo male with 1)Abd Pain and Diarrhea, Possible C. difficile colitis 2)Elevated troponin, CAD 3)End-stage renal disease hemodialysis dependent 4)Hyperkalemia 5)Left foot gangrenous wounds 6)Severe peripheral vascular disease with severe infrapopliteal disease and pedal disease. 7)Hypertension. 8)CAD 9)Permanent Pacemaker. 10)Legally blind 11)Anemia of chronic disease 12)Possible Pna vs Edema On PO Vanco ID seen, DC IV abx HD today Repeat H/Hct and chemistry in am thank you for the opportunity to participate in the care of Mr Thibodeaux. Consultation Date/Type/Reason Admit Date/Time Apr 08, 2017 at 21:31 Initial Consult Date 04/10/17 Type of Consultation: Renal Referring Provider: POLY THRASHER MD 24 HR Interval Summary Free Text/Dictation pending HD Constitutional: No requiring O2 Exam/Review of Systems Vital Signs Vitals Vital Signs Date Time Temp Pulse Resp B/P Pulse Ox O2 Delivery O2 Flow Rate FiO2 04/12/17 12:25 69 04/12/17 11:07 97.4 20 153/76 95 04/09/17 08:19 Nasal Cannula 2.0 Intake and Output 04/11/17 04/11/17 04/12/17 15:00 23:00 07:00 Intake Total 500 ml Balance 500 ml Exam Constitutional: No distress ENMT: mucosa pink and moist Respiratory: No labored breathing Cardiovascular: No edema Gastrointestinal: soft Neurological: No lethargic Results Result Diagram: 04/12/17 0519 04/12/17 0519 Results 24 hrs Laboratory Tests Test 04/12/17 05:19 White Blood Count 10.9 H Red Blood Count 3.38 L Hemoglobin 9.0 L Hematocrit 28.0 L Mean Corpuscular Volume 82.8 Mean Corpuscular Hemoglobin 26.6 L Mean Corpuscular Hemoglobin Concent 32.1 Red Cell Distribution Width 18.8 H Platelet Count 231 Mean Platelet Volume 9.8 Neutrophils % 79.5 H Lymphocytes % 5.8 L Monocytes % 11.3 H Eosinophils % 1.7 Basophils % 0.7 Nucleated Red Blood Cells % 0.0 Neutrophils # 8.6 H Lymphocytes # 0.6 L Monocytes # 1.2 H Eosinophils # 0.2 Basophils # 0.1 Nucleated Red Blood Cells # 0.0 Sodium Level 140 Potassium Level 5.4 H Chloride Level 98 Carbon Dioxide Level 26 Anion Gap 21 H Blood Urea Nitrogen 69 H Creatinine 9.38 H Glucose Level 91 Calcium Level 10.4 H Medications Medications Current Medications Dextrose/Sodium Chloride (D5-1/2ns) 1,000 ml @ 50 mls/hr Q20H IV Last administered on 04/12/17 07:30; Admin Dose 50 MLS/HR; Start 04/08/17 at 23:30 Ondansetron HCl (Zofran Inj) 4 mg Q6H PRN IV NAUSEA AND/OR VOMITING; Start 04/08/17 at 23:30 Vancomycin HCl (Vancomycin Oral Syringe) 250 mg Q6 PO Last administered on 04/12 05:58; Admin Dose 250 MG; Start 04/09/17 at 00:00 Acetaminophen (Tylenol Tab) 650 mg Q4H PRN PO PAIN AND OR ELEVATED TEMP; Start 04/08/17 at 23:30 Acetaminophen/ Hydrocodone Bitart ([place] (5/325)) 1 tab Q4H PRN PO PAIN LEVEL 4 -6 Last administered on 04/10/17 12:56; Admin Dose 1 TAB; Start 04/08/17 at 23: 30 Amlodipine Besylate (Norvasc) 5 mg BID PO Last administered on 04/12/17 08:39 ; Admin Dose 5 MG; Start 04/09/17 at 09:00 Atorvastatin Calcium (Lipitor) 40 mg HS PO Last administered on 04/11/17 21:07 ; Admin Dose 40 MG; Start 04/09/17 at 21:00 Cinacalcet (Sensipar) 30 mg BID PO Last administered on 04/12/17 08:39; Admin Dose 30 MG; Start 04/09/17 at 09:00 Clopidogrel Bisulfate (plaVIX) 75 mg DAILY PO Last administered on 04/12/17 08 :39; Admin Dose 75 MG; Start 04/09/17 at 09:00 Diphenhydramine HCl (Benadryl) 25 mg Q6H PRN PO ITCHING; Start 04/08/17 at 23: 30 Carvedilol (Coreg) 3.125 mg BID PO Last administered on 04/12/17 08:40; Admin Dose 3.125 MG; Start 04/09/17 at 09:00 Aspirin (Aspirin) 81 mg DAILY PO Last administered on 04/12/17 08:39; Admin Dose 81 MG; Start 04/11/17 at 09:00 Morphine Sulfate (morphine) 2 mg Q4H PRN IV SEVERE PAIN LEVEL 7-10 Last administered on 04/12/17 09:17; Admin Dose 2 MG; Start 04/10/17 at 15:30 Lactobacillus Acidophilus (Florajen3 Capsule) 1 each BID PO Last administered on 04/12/17 08:41; Admin Dose 1 EACH; Start 04/11/17 at 14:30 PIPER FELIX MD Apr 12, 2017 12:46
[2017-04-12] MEDS: HYDROCODONE/APAP (5/325) TAB PO PRN (13:35)
--- NOTE | 2017-04-12 16:32 | CONS ---
Date/Time of Note Date/Time of Note DATE: 04/12/17 TIME: 16:28 Consultation Date/Type/Reason Admit Date/Time Apr 08, 2017 at 21:31 Initial Consult Date SUBJECTIVE: Patient is awake, alert. Denies fevers, chills. Currently being treated for Lt foot gangreen and C.diff. VS: 156/73 P:69 R:20 T:98.0 SO2:96% LABS: WBC-10.9 BUN:69 Cr-9.38 MICROBIOLOGY: Blood cultures negative. INDWELLINGS: The patient has AV fistula. ANTIMICROBIALS: Vancomycin PO. PHYSICAL EXAMINATION: GENERAL: This is a chronically ill-appearing, fragile, elderly man who is awake , in no distress. HEENT: Head atraumatic, normocephalic. Sclerae anicteric. Buccal mucosa dry. NECK: Supple. CHEST: Rise symmetrical. Breath sounds diminished to bases. HEART: S1, S2. ABDOMEN: Soft, bowel tones present. EXTREMITIES: Left foot gangrene. ASSESSMENT: 1. Systemic inflammatory response syndrome. 2. Clostridium difficile colitis. 3. Left foot dry gangrene. 4. End-stage renal disease. 5. Anemia. 6. Severe peripheral arterial and vascular disease. 7. History of permanent pacemaker placement. PLAN: Pt is stable. Continue on PO Vanco, Daily wound care.Monitor renal function. Type of Consultation: ID Referring Provider: POLY THRASHER MD Exam/Review of Systems Vital Signs Vitals Vital Signs Date Time Temp Pulse Resp B/P Pulse Ox O2 Delivery O2 Flow Rate FiO2 04/12/17 15:42 98.0 69 20 156/73 96 04/09/17 08:19 Nasal Cannula 2.0 Intake and Output 04/11/17 04/11/17 04/12/17 15:00 23:00 07:00 Intake Total 500 ml Balance 500 ml Results Result Diagram: 04/12/1751804/12/17 05 Results 24 hrs Laboratory Tests Test 04/12/17 05:19 White Blood Count 10.9 H Red Blood Count 3.38 L Hemoglobin 9.0 L Hematocrit 28.0 L Mean Corpuscular Volume 82.8 Mean Corpuscular Hemoglobin 26.6 L Mean Corpuscular Hemoglobin Concent 32.1 Red Cell Distribution Width 18.8 H Platelet Count 231 Mean Platelet Volume 9.8 Neutrophils % 79.5 H Lymphocytes % 5.8 L Monocytes % 11.3 H Eosinophils % 1.7 Basophils % 0.7 Nucleated Red Blood Cells % 0.0 Neutrophils # 8.6 H Lymphocytes # 0.6 L Monocytes # 1.2 H Eosinophils # 0.2 Basophils # 0.1 Nucleated Red Blood Cells # 0.0 Sodium Level 140 Potassium Level 5.4 H Chloride Level 98 Carbon Dioxide Level 26 Anion Gap 21 H Blood Urea Nitrogen 69 H Creatinine 9.38 H Glucose Level 91 Calcium Level 10.4 H Medications Medications Current Medications Dextrose/Sodium Chloride (D5-1/2ns) 1,000 ml @ 50 mls/hr Q20H IV Last administered on 04/12/17 07:30; Admin Dose 50 MLS/HR; Start 04/08/17 at 23:30 Ondansetron HCl (Zofran Inj) 4 mg Q6H PRN IV NAUSEA AND/OR VOMITING; Start 04/08/17 at 23:30 Vancomycin HCl (Vancomycin Oral Syringe) 250 mg Q6 PO Last administered on 04/12 13:08; Admin Dose 250 MG; Start 04/09/17 at 00:00 Acetaminophen (Tylenol Tab) 650 mg Q4H PRN PO PAIN AND OR ELEVATED TEMP; Start 04/08/17 at 23:30 Acetaminophen/ Hydrocodone Bitart ([place] (5/325)) 1 tab Q4H PRN PO PAIN LEVEL 4 -6 Last administered on 04/12/17 13:35; Admin Dose 1 TAB; Start 04/08/17 at 23: 30 Amlodipine Besylate (Norvasc) 5 mg BID PO Last administered on 04/12/17 08:39 ; Admin Dose 5 MG; Start 04/09/17 at 09:00 Atorvastatin Calcium (Lipitor) 40 mg HS PO Last administered on 04/11/17 21:07 ; Admin Dose 40 MG; Start 04/09/17 at 21:00 Cinacalcet (Sensipar) 30 mg BID PO Last administered on 04/12/17 08:39; Admin Dose 30 MG; Start 04/09/17 at 09:00 Clopidogrel Bisulfate (plaVIX) 75 mg DAILY PO Last administered on 04/12/17 08 :39; Admin Dose 75 MG; Start 04/09/17 at 09:00 Diphenhydramine HCl (Benadryl) 25 mg Q6H PRN PO ITCHING; Start 04/08/17 at 23: 30 Carvedilol (Coreg) 3.125 mg BID PO Last administered on 04/12/17 08:40; Admin Dose 3.125 MG; Start 04/09/17 at 09:00 Aspirin (Aspirin) 81 mg DAILY PO Last administered on 04/12/17 08:39; Admin Dose 81 MG; Start 04/11/17 at 09:00 Morphine Sulfate (morphine) 2 mg Q4H PRN IV SEVERE PAIN LEVEL 7-10 Last administered on 04/12/17 16:22; Admin Dose 2 MG; Start 04/10/17 at 15:30 Lactobacillus Acidophilus (Florajen3 Capsule) 1 each BID PO Last administered on 04/12/17 08:41; Admin Dose 1 EACH; Start 04/11/17 at 14:30 SKYLER MUSE Apr 12, 2017 16:32
--- NOTE | 2017-04-12 17:29 | CONS ---
Date/Time of Note Date/Time of Note DATE: 04/12/17 TIME: 17:28 Assessment/Plan Assessment/Plan Chief Complaint/Hosp Course The pt has positive trops Had an angio in February The pt will be treated medically. Spoke with dr. Wetzel about this medical tx Problems: Consultation Date/Type/Reason Admit Date/Time Apr 08, 2017 at 21:31 Initial Consult Date 04/10/17 Type of Consultation: ID Referring Provider: POLY THRASHER MD 24 HR Interval Summary Free Text/Dictation The pt is not c/o cp or sob Exam/Review of Systems Vital Signs Vitals Vital Signs Date Time Temp Pulse Resp B/P Pulse Ox O2 Delivery O2 Flow Rate FiO2 04/12/17 16:28 73 04/12/17 15:42 98.0 20 156/73 96 04/09/17 08:19 Nasal Cannula 2.0 Intake and Output 04/11/17 04/11/17 04/12/17 15:00 23:00 07:00 Intake Total 500 ml Balance 500 ml Exam Constitutional: alert Psych: no complaints Eyes: nl conjunctiva Neck: supple Cardiovascular: regular rate and rhythm Gastrointestinal: soft Results Result Diagram: 04/12/17 0519 04/12/17 0519 Results 24 hrs Laboratory Tests Test 04/12/17 05:19 White Blood Count 10.9 H Red Blood Count 3.38 L Hemoglobin 9.0 L Hematocrit 28.0 L Mean Corpuscular Volume 82.8 Mean Corpuscular Hemoglobin 26.6 L Mean Corpuscular Hemoglobin Concent 32.1 Red Cell Distribution Width 18.8 H Platelet Count 231 Mean Platelet Volume 9.8 Neutrophils % 79.5 H Lymphocytes % 5.8 L Monocytes % 11.3 H Eosinophils % 1.7 Basophils % 0.7 Nucleated Red Blood Cells % 0.0 Neutrophils # 8.6 H Lymphocytes # 0.6 L Monocytes # 1.2 H Eosinophils # 0.2 Basophils # 0.1 Nucleated Red Blood Cells # 0.0 Sodium Level 140 Potassium Level 5.4 H Chloride Level 98 Carbon Dioxide Level 26 Anion Gap 21 H Blood Urea Nitrogen 69 H Creatinine 9.38 H Glucose Level 91 Calcium Level 10.4 H Medications Medications Current Medications Dextrose/Sodium Chloride (D5-1/2ns) 1,000 ml @ 50 mls/hr Q20H IV Last administered on 04/12/17 07:30; Admin Dose 50 MLS/HR; Start 04/08/17 at 23:30 Ondansetron HCl (Zofran Inj) 4 mg Q6H PRN IV NAUSEA AND/OR VOMITING; Start 04/08/17 at 23:30 Vancomycin HCl (Vancomycin Oral Syringe) 250 mg Q6 PO Last administered on 04/12 13:08; Admin Dose 250 MG; Start 04/09/17 at 00:00 Acetaminophen (Tylenol Tab) 650 mg Q4H PRN PO PAIN AND OR ELEVATED TEMP; Start 04/08/17 at 23:30 Acetaminophen/ Hydrocodone Bitart ([place] (5/325)) 1 tab Q4H PRN PO PAIN LEVEL 4 -6 Last administered on 04/12/17 13:35; Admin Dose 1 TAB; Start 04/08/17 at 23: 30 Amlodipine Besylate (Norvasc) 5 mg BID PO Last administered on 04/12/17 08:39 ; Admin Dose 5 MG; Start 04/09/17 at 09:00 Atorvastatin Calcium (Lipitor) 40 mg HS PO Last administered on 04/11/17 21:07 ; Admin Dose 40 MG; Start 04/09/17 at 21:00 Cinacalcet (Sensipar) 30 mg BID PO Last administered on 04/12/17 08:39; Admin Dose 30 MG; Start 04/09/17 at 09:00 Clopidogrel Bisulfate (plaVIX) 75 mg DAILY PO Last administered on 04/12/17 08 :39; Admin Dose 75 MG; Start 04/09/17 at 09:00 Diphenhydramine HCl (Benadryl) 25 mg Q6H PRN PO ITCHING; Start 04/08/17 at 23: 30 Carvedilol (Coreg) 3.125 mg BID PO Last administered on 04/12/17 08:40; Admin Dose 3.125 MG; Start 04/09/17 at 09:00 Aspirin (Aspirin) 81 mg DAILY PO Last administered on 04/12/17 08:39; Admin Dose 81 MG; Start 04/11/17 at 09:00 Morphine Sulfate (morphine) 2 mg Q4H PRN IV SEVERE PAIN LEVEL 7-10 Last administered on 04/12/17 16:22; Admin Dose 2 MG; Start 04/10/17 at 15:30 Lactobacillus Acidophilus (Florajen3 Capsule) 1 each BID PO Last administered on 04/12/17t 08:41; Admin Dose 1 EACH; Start 04/11/17 at 14:30 ARVIND SHIRLEY MD Apr 12, 2017 17:29
--- NOTE | 2017-04-12 18:29 | CONS ---
Date/Time of Note Date/Time of Note DATE: 04/12/17 TIME: 18:29 Assessment/Plan Assessment/Plan Chief Complaint/Hosp Course ID PROGRESS NOTE CURRENT ABX=>VANCO PO s/p Amikacin a/p Vanco IV, Zosyn 24H INTERVAL SUMMARY * VSS, NAD, 8 BM recorded yesterday -> today so far 4 EXAM GENERAL: VSS, NAD, resting HEENT: Unremarkable NECK: Supple, full ROM CHEST: Rise symmetrical, without dyspnea on observation ABDOMEN: Soft, NT EXTREMITIES: Warm, dry gangrene LFoot SKIN: No diaphoresis, no rash ID ASSESSMENT: 61 yo M admit with: 1. Systemic inflammatory response syndrome. 2. Clostridium difficile colitis. 3. Left foot dry gangrene. 4. End-stage renal disease. 5. Anemia. 6. Severe peripheral arterial and vascular disease. 7. History of permanent pacemaker placement. INVASIVES: PIV ABX ALLERGY: KNDA CURRENT ABX=>VANCO PO s/p Amikacin a/p Vanco IV, Zosyn ID PLAN 1. All systemic IV ABX stopped per C.Diff colitis => continue Vanco PO . . Problems: Consultation Date/Type/Reason Admit Date/Time Apr 08, 2017 at 21:31 Initial Consult Date 04/10/17 Type of Consultation: ID Referring Provider: POLY THRASHER MD Exam/Review of Systems Vital Signs Vitals Vital Signs Date Time Temp Pulse Resp B/P Pulse Ox O2 Delivery O2 Flow Rate FiO2 04/12/17 16:28 73 04/12/17 15:42 98.0 20 156/73 96 04/09/17 08:19 Nasal Cannula 2.0 Intake and Output 04/11/17 04/11/17 04/12/17 15:00 23:00 07:00 Intake Total 500 ml Balance 500 ml Results Result Diagram: 04/12/17 0519 04/12/17 0519 Results 24 hrs Laboratory Tests Test 04/12/17 05:19 White Blood Count 10.9 H Red Blood Count 3.38 L Hemoglobin 9.0 L Hematocrit 28.0 L Mean Corpuscular Volume 82.8 Mean Corpuscular Hemoglobin 26.6 L Mean Corpuscular Hemoglobin Concent 32.1 Red Cell Distribution Width 18.8 H Platelet Count 231 Mean Platelet Volume 9.8 Neutrophils % 79.5 H Lymphocytes % 5.8 L Monocytes % 11.3 H Eosinophils % 1.7 Basophils % 0.7 Nucleated Red Blood Cells % 0.0 Neutrophils # 8.6 H Lymphocytes # 0.6 L Monocytes # 1.2 H Eosinophils # 0.2 Basophils # 0.1 Nucleated Red Blood Cells # 0.0 Sodium Level 140 Potassium Level 5.4 H Chloride Level 98 Carbon Dioxide Level 26 Anion Gap 21 H Blood Urea Nitrogen 69 H Creatinine 9.38 H Glucose Level 91 Calcium Level 10.4 H Medications Medications Current Medications Dextrose/Sodium Chloride (D5-1/2ns) 1,000 ml @ 50 mls/hr Q20H IV Last administered on 04/12/17 07:30; Admin Dose 50 MLS/HR; Start 04/08/17 at 23:30 Ondansetron HCl (Zofran Inj) 4 mg Q6H PRN IV NAUSEA AND/OR VOMITING; Start 04/08/17 at 23:30 Vancomycin HCl (Vancomycin Oral Syringe) 250 mg Q6 PO Last administered on 04/12 18:14; Admin Dose 250 MG; Start 04/09/17 at 00:00 Acetaminophen (Tylenol Tab) 650 mg Q4H PRN PO PAIN AND OR ELEVATED TEMP; Start 04/08/17 at 23:30 Acetaminophen/ Hydrocodone Bitart ([place] (5/325)) 1 tab Q4H PRN PO PAIN LEVEL 4 -6 Last administered on 04/12/17 13:35; Admin Dose 1 TAB; Start 04/08/17 at 23: 30 Amlodipine Besylate (Norvasc) 5 mg BID PO Last administered on 04/12/17 08:39 ; Admin Dose 5 MG; Start 04/09/17 at 09:00 Atorvastatin Calcium (Lipitor) 40 mg HS PO Last administered on 04/11/17 21:07 ; Admin Dose 40 MG; Start 04/09/17 at 21:00 Cinacalcet (Sensipar) 30 mg BID PO Last administered on 04/12/17 08:39; Admin Dose 30 MG; Start 04/09/17 at 09:00 Clopidogrel Bisulfate (plaVIX) 75 mg DAILY PO Last administered on 04/12/17 08 :39; Admin Dose 75 MG; Start 04/09/17 at 09:00 Diphenhydramine HCl (Benadryl) 25 mg Q6H PRN PO ITCHING; Start 04/08/17 at 23: 30 Carvedilol (Coreg) 3.125 mg BID PO Last administered on 04/12/17 08:40; Admin Dose 3.125 MG; Start 04/09/17 at 09:00 Aspirin (Aspirin) 81 mg DAILY PO Last administered on 04/12/17 08:39; Admin Dose 81 MG; Start 04/11/17 at 09:00 Morphine Sulfate (morphine) 2 mg Q4H PRN IV SEVERE PAIN LEVEL 7-10 Last administered on 04/12/17 16:22; Admin Dose 2 MG; Start 04/10/17 at 15:30 Lactobacillus Acidophilus (Florajen3 Capsule) 1 each BID PO Last administered on 04/12/17 08:41; Admin Dose 1 EACH; Start 04/11/17 at 14:30 ESTEFANIA HARMON NP Apr 12, 2017 18:29
[2017-04-12] MEDS: ATORVASTATIN 40 MG TAB PO SCH (21:11)
[2017-04-13] VITALS (11 sets, daily range): BP systolic 128–154; BP diastolic 64–82; PULSE 69–75; RESP 18–20
[2017-04-13] MEDS: VANCOMYCIN HCL 250 MG/5ML POSYG PO SCH ×4 (00:30→17:28)
[2017-04-13] MEDS: morphine 2 MG INJ IV PRN ×4 (02:11→18:54)
--- NOTE | 2017-04-13 08:23 | CONS ---
Date/Time of Note Date/Time of Note DATE: 04/13/17 TIME: 08:19 Assessment/Plan Assessment/Plan Chief Complaint/Hosp Course The pt's troponin is decreasing The pt has severe CAD and not operable. The pt will cont the meds. Problems: Consultation Date/Type/Reason Admit Date/Time Apr 08, 2017 at 21:31 Initial Consult Date 04/10/17 Type of Consultation: ID Referring Provider: POLY THRASHER MD 24 HR Interval Summary Free Text/Dictation The pt is not complaining of chest pain or sob. The pt's creat is improving. Exam/Review of Systems Vital Signs Vitals Vital Signs Date Time Temp Pulse Resp B/P Pulse Ox O2 Delivery O2 Flow Rate FiO2 04/13/17 07:43 98.0 71 20 153/79 96 04/09/17 08:19 Nasal Cannula 2.0 Intake and Output 04/12/17 04/12/17 04/13/17 15:00 23:00 07:00 Intake Total 1220 ml 400 ml Output Total 6500 ml Balance -5280 ml 400 ml Results Result Diagram: 04/12/17 0519 04/12/17 0519 Results 24 hrs Laboratory Tests Test 04/13/17 06:29 Lab Scanned Report BLOOD TRANSFUSION Medications Medications Current Medications Dextrose/Sodium Chloride (D5-1/2ns) 1,000 ml @ 50 mls/hr Q20H IV Last administered on 04/12/17 21:15; Admin Dose 50 MLS/HR; Start 04/08/17 at 23:30 Ondansetron HCl (Zofran Inj) 4 mg Q6H PRN IV NAUSEA AND/OR VOMITING; Start 04/08/17 at 23:30 Vancomycin HCl (Vancomycin Oral Syringe) 250 mg Q6 PO Last administered on 06:25; Admin Dose 250 MG; Start 04/09/17 at 00:00 Acetaminophen (Tylenol Tab) 650 mg Q4H PRN PO PAIN AND OR ELEVATED TEMP; Start 04/08/17 at 23:30 Acetaminophen/ Hydrocodone Bitart ([place] (5/325)) 1 tab Q4H PRN PO PAIN LEVEL 4 -6 Last administered on 04/12/17 13:35; Admin Dose 1 TAB; Start 04/08/17 at 23: 30 Amlodipine Besylate (Norvasc) 5 mg BID PO Last administered on 04/12/17 21:15 ; Admin Dose 5 MG; Start 04/09/17 at 09:00 Atorvastatin Calcium (Lipitor) 40 mg HS PO Last administered on 04/12/17 21:11 ; Admin Dose 40 MG; Start 04/09/17 at 21:00 Cinacalcet (Sensipar) 30 mg BID PO Last administered on 04/12/17 21:11; Admin Dose 30 MG; Start 04/09/17 at 09:00 Clopidogrel Bisulfate (plaVIX) 75 mg DAILY PO Last administered on 04/12/17 08 :39; Admin Dose 75 MG; Start 04/09/17 at 09:00 Diphenhydramine HCl (Benadryl) 25 mg Q6H PRN PO ITCHING; Start 04/08/17 at 23: 30 Carvedilol (Coreg) 3.125 mg BID PO Last administered on 04/12/17 21:15; Admin Dose 3.125 MG; Start 04/09/17 at 09:00 Aspirin (Aspirin) 81 mg DAILY PO Last administered on 04/12/17 08:39; Admin Dose 81 MG; Start 04/11/17 at 09:00 Morphine Sulfate (morphine) 2 mg Q4H PRN IV SEVERE PAIN LEVEL 7-10 Last administered on 04/13/17 06:27; Admin Dose 2 MG; Start 04/10/17 at 15:30 Lactobacillus Acidophilus (Florajen3 Capsule) 1 each BID PO Last administered on 04/12/17 21:11; Admin Dose 1 EACH; Start 04/11/17 at 14:30 ARVIND SHIRLEY MD Apr 13, 2017 08:22
[2017-04-13] MEDS: ASPIRIN 81 MG TAB PO SCH (09:28)
[2017-04-13] MEDS: HYDROCODONE/APAP (5/325) TAB PO PRN ×2 (09:28→15:19)
[2017-04-13] MEDS: L ACIDOPHIL/B LACTIS/B LONGUM CAPSULE PO SCH ×2 (09:28→21:05)
[2017-04-13] MEDS: CLOPIDOGREL 75 MG TAB PO SCH (09:28)
[2017-04-13] MEDS: AMLODIPINE 5 MG TAB PO SCH ×2 (09:28→21:06)
[2017-04-13] MEDS: BALSAM PERU/CASTOR OIL 60 GM TUBE TOP SCH ×2 (09:29→21:00)
[2017-04-13] MEDS: SEVELAMER 800 MG TAB PO SCH ×3 (09:29→17:26)
[2017-04-13] MEDS: CINACALCET 30 MG TAB PO SCH ×2 (09:29→21:05)
[2017-04-13] MEDS: CALCIUM ACETATE 667 MG CAP PO SCH ×3 (09:29→17:26)
--- NOTE | 2017-04-13 11:11 | PN ---
Date/Time of Note Date/Time of Note DATE: 04/13/17 TIME: 11:11 Assessment/Plan VTE Prophylaxis VTE Prophylaxis Intervention: other Lines/Catheters IV [facility]ter Type [facility]from [facility] [place] [facility] Urinary Cath still in place: No Assessment/Plan Chief Complaint/Hosp Course -C. difficile colitis, continue vancomycin p.o. Dr. Tobias is following in infection disease consultation. -Elevated troponin, allowing in cardiology consultation. -End-stage renal disease hemodialysis dependent. Dr. Wallace is following in nephrology consultation. Continue hemodialysis. -Hyperkalemia - Possible PNA, continue abx. Dr Tobias is asked to see pt in ID consultation. - Left foot gangrenous wounds - Severe peripheral vascular disease with severe infrapopliteal disease and pedal disease. - Hypertension. - CAD - Permanent Pacemaker. - Legally blind - Anemia of chronic disease. Problems: Subjective 24 Hr Interval Summary Free Text/Dictation Patient has no complaints Exam/Review of Systems Vital Signs Vitals Vital Signs Date Time Temp Pulse Resp B/P Pulse Ox O2 Delivery O2 Flow Rate FiO2 04/13/17 08:36 69 04/13/17 07:43 98.0 20 153/79 96 04/09/17 08:19 Nasal Cannula 2.0 Intake and Output 04/12/17 04/12/17 04/13/17 15:00 23:00 07:00 Intake Total 1220 ml 400 ml Output Total 6500 ml Balance -5280 ml 400 ml Exam Constitutional: well developed Head: atraumatic, normocephalic Neck: supple Respiratory: clear to auscultation Cardiovascular: regular rate and rhythm Gastrointestinal: non-tender, soft Extremities: normal pulses Results Result Diagram: 04/12/17 0519 04/12/17 05 Results 24 hrs Laboratory Tests Test 04/13/17 06:29 Lab Scanned Report BLOOD TRANSFUSION Medications Medications Current Medications Dextrose/Sodium Chloride (D5-1/2ns) 1,000 ml @ 50 mls/hr Q20H IV Last administered on 04/12/17t 21:15; Admin Dose 50 MLS/HR; Start 04/08/17 at 23:30 Ondansetron HCl (Zofran Inj) 4 mg Q6H PRN IV NAUSEA AND/OR VOMITING; Start 04/08/17 at 23:30 Vancomycin HCl (Vancomycin Oral Syringe) 250 mg Q6 PO Last administered on 06:25; Admin Dose 250 MG; Start 04/09/17 at 00:00 Acetaminophen (Tylenol Tab) 650 mg Q4H PRN PO PAIN AND OR ELEVATED TEMP; Start 04/08/17 at 23:30 Acetaminophen/ Hydrocodone Bitart ([place] (5/325)) 1 tab Q4H PRN PO PAIN LEVEL 4 -6 Last administered on 04/13/17 09:28; Admin Dose 1 TAB; Start 04/08/17 at 23 :30 Amlodipine Besylate (Norvasc) 5 mg BID PO Last administered on 04/13/17 09:28 ; Admin Dose 5 MG; Start 04/09/17 at 09:00 Atorvastatin Calcium (Lipitor) 40 mg HS PO Last administered on 04/12/17 21:11 ; Admin Dose 40 MG; Start 04/09/17 at 21:00 Cinacalcet (Sensipar) 30 mg BID PO Last administered on 04/13/17 09:29; Admin Dose 30 MG; Start 04/09/17 at 09:00 Clopidogrel Bisulfate (plaVIX) 75 mg DAILY PO Last administered on 04/13/17 09:28; Admin Dose 75 MG; Start 04/09/17 at 09:00 Diphenhydramine HCl (Benadryl) 25 mg Q6H PRN PO ITCHING; Start 04/08/17 at 23: 30 Carvedilol (Coreg) 3.125 mg BID PO Last administered on 04/13/17 09:29; Admin Dose 3.125 MG; Start 04/09/17 at 09:00 Aspirin (Aspirin) 81 mg DAILY PO Last administered on 04/13/17 09:28; Admin Dose 81 MG; Start 04/11/17 at 09:00 Morphine Sulfate (morphine) 2 mg Q4H PRN IV SEVERE PAIN LEVEL 7-10 Last administered on 04/13/17 06:27; Admin Dose 2 MG; Start 04/10/17 at 15:30 Lactobacillus Acidophilus (Florajen3 Capsule) 1 each BID PO Last administered on 04/13/17 09:28; Admin Dose 1 EACH; Start 04/11/17 at 14:30 FELISA TRIMBLE Apr 13, 2017 11:11
--- NOTE | 2017-04-13 14:50 | CONS ---
Date/Time of Note Date/Time of Note DATE: 04/13/17 TIME: 14:19 Assessment/Plan Assessment/Plan Chief Complaint/Hosp Course ID PROGRESS NOTE CURRENT ABX=>VANCO PO + restart Vanco IV + Gent IV + Flagyl IV s/p Amikacin a/p Vanco IV, Zosyn 24H INTERVAL SUMMARY * Awake, alert, eating lunch == diarrhea + ABD cramping improved > 8# BMs FRI - > 4# BMs SAT -> 2# BMs SUN * Severe pain left foot ==> no pain meds onboard ==> He complains of worsening pain in left foot "everyday the pain is so bad, everyday it gets worse"-> left foot with erythema dorsal and plantar aspect with gangrenous toes => concerned cellulitis will spread now OFF IV ABX * (+)Severe CAD + PAD -> Not a candidate for coronary intervention, ESRD w/ fistula * High risk for lower extremity intervention, no doubt, yet high risk also not to intervene. EXAM GENERAL: VSS, NAD, resting HEENT: Unremarkable NECK: Supple, full ROM CHEST: Rise symmetrical, without dyspnea on observation ABDOMEN: Soft, NT EXTREMITIES: Warm, dry gangrene LFoot SKIN: No diaphoresis, no rash ID ASSESSMENT: 61 yo M admit with: 1. Systemic inflammatory response syndrome. 2. Clostridium difficile colitis 3. 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 Left foot cellulitis w/painful diabetic foot infection (+) dry gangrene 4. End-stage renal disease -> LUEXT AVF 5. Anemia of chronic disease 6. Severe peripheral arterial and vascular disease. * 11/13/16 CTA BLEXT MPRESSION: * RLEXT=> Moderate short segment narrowing of the right common femoral artery. There is multifocal moderate to severe narrowing of the right popliteal artery with a focus of occlusion or near - occlusion in its midportion. * LLEXT=> Mild to moderate narrowing at the origin of the left superficial femoral artery. There is multifocal severe narrowing of the left popliteal artery with a focus of occlusion in its midportion. * BLEXT => Nearly uninterrupted thick circumferential calcifications of the bilateral anterior and posterior tibial arteries which limit evaluation. Bilateral peroneal arteries demonstrate multifocal short segment occlusions and reconstitutions. Catheter angiography is recommended for further evaluation of the infrapopliteal arteries. * 02/11/17 BLEXT ARTERIAL DUPLEX: 1. Abnormal flow bilaterally as described above. There is significant stenosis or occlusion in the calf arteries. 7. Ischemic cardiomyopathy w/ severe CAD -> not a candidate for further intervention=> Per cards continue medical tx * Elevated troponin in setting renal failure, sepsis, known CAD => conservative management * Hx of prior PCI-stent, status post permanent pacemaker placement 8. Hx of hypoxic respiratory insufficiency due to acute CHF exacerbation, prior admission * Fluid management per HD 9. Hx of RLL PNA prior admission, asymptomatic 10. BPH => CR Prominent prostate measuring up to 5.7 cm. INVASIVES: PIV ABX ALLERGY: KNDA CURRENT ABX=>VANCO PO + restart Vanco IV + Gent IV + Flagyl IV s/p Amikacin a/p Vanco IV, Zosyn ID PLAN 1. All systemic IV ABX stopped per C.Diff colitis which has improved => continue Vanco PO * FOOT pain increased w/erythema consistent with cellulitis => restart IV ABX Vanco IV + Aminoglycoside + Flagyl 2. Is he a candidate for Gabapentin and/or Lyrica for severe neuropathic pain ? 3. Is he a candidate for low dose [place] for severe pain ? 4. Awaiting further recs on plan for BLEXT revascularization ? PTCA to BLEXT infrapopliteal & calf arteries ? * Braden for amputation/TMA of gangrenous foot? . . . Problems: Consultation Date/Type/Reason Admit Date/Time Apr 08, 2017 at 21:31 Initial Consult Date 04/10/17 Type of Consultation: ID Referring Provider: POLY THRASHER MD Exam/Review of Systems Vital Signs Vitals Vital Signs Date Time Temp Pulse Resp B/P Pulse Ox O2 Delivery O2 Flow Rate FiO2 04/13/17 12:36 69 04/13/17 12:13 97.8 20 142/79 97 04/09/17 08:19 Nasal Cannula 2.0 Intake and Output 04/12/17 04/12/17 04/13/17 15:00 23:00 07:00 Intake Total 1220 ml 400 ml Output Total 6500 ml Balance -5280 ml 400 ml Results Result Diagram: 04/12/17 0519 04/12/17 0519 Results 24 hrs Laboratory Tests Test 04/13/17 06:29 Lab Scanned Report BLOOD TRANSFUSION Medications Medications Current Medications Dextrose/Sodium Chloride (D5-1/2ns) 1,000 ml @ 50 mls/hr Q20H IV Last administered on 04/12/17 21:15; Admin Dose 50 MLS/HR; Start 04/08/17 at 23:30 Ondansetron HCl (Zofran Inj) 4 mg Q6H PRN IV NAUSEA AND/OR VOMITING; Start 04/08/17 at 23:30 Vancomycin HCl (Vancomycin Oral Syringe) 250 mg Q6 PO Last administered on 12:32; Admin Dose 250 MG; Start 04/09/17 at 00:00 Acetaminophen (Tylenol Tab) 650 mg Q4H PRN PO PAIN AND OR ELEVATED TEMP; Start 04/08/17 at 23:30 Acetaminophen/ Hydrocodone Bitart ([place] (5/325)) 1 tab Q4H PRN PO PAIN LEVEL 4 -6 Last administered on 04/13/17 09:28; Admin Dose 1 TAB; Start 04/08/17 at 23 :30 Amlodipine Besylate (Norvasc) 5 mg BID PO Last administered on 04/13/17 09:28 ; Admin Dose 5 MG; Start 04/09/17 at 09:00 Atorvastatin Calcium (Lipitor) 40 mg HS PO Last administered on 04/12/17 21:11 ; Admin Dose 40 MG; Start 04/09/17 at 21:00 Cinacalcet (Sensipar) 30 mg BID PO Last administered on 04/13/17 09:29; Admin Dose 30 MG; Start 04/09/17 at 09:00 Clopidogrel Bisulfate (plaVIX) 75 mg DAILY PO Last administered on 04/13/17 09:28; Admin Dose 75 MG; Start 04/09/17 at 09:00 Diphenhydramine HCl (Benadryl) 25 mg Q6H PRN PO ITCHING; Start 04/08/17 at 23: 30 Carvedilol (Coreg) 3.125 mg BID PO Last administered on 04/13/17 09:29; Admin Dose 3.125 MG; Start 04/09/17 at 09:00 Aspirin (Aspirin) 81 mg DAILY PO Last administered on 04/13/17 09:28; Admin Dose 81 MG; Start 04/11/17 at 09:00 Morphine Sulfate (morphine) 2 mg Q4H PRN IV SEVERE PAIN LEVEL 7-10 Last administered on 04/13/17 12:33; Admin Dose 2 MG; Start 04/10/17 at 15:30 Lactobacillus Acidophilus (Florajen3 Capsule) 1 each BID PO Last administered on 04/13/17 09:28; Admin Dose 1 EACH; Start 04/11/17 at 14:30 ESTEFANIA HARMON NP Apr 13, 2017 14:29
[2017-04-13] MEDS ORDERED: VANCOMYCIN IV PER PHARMACY XX SCH (15:00)
[2017-04-13] MEDS ORDERED: GENTAMICIN IV PER PHARMACY XX SCH (15:00)
[2017-04-13] MEDS: DEXTROSE 5%-0.45% NACL 1,000 ML IV SCH (16:44)
[2017-04-13] MEDS ORDERED: VANCOMYCIN 1 GM in D5W 250 ML IVPB SCH (17:00)
[2017-04-13] MEDS ORDERED: DEXTROSE IVPB SCH (17:00)
[2017-04-13] MEDS ORDERED: GENTAMICIN IVPB SCH (17:00)
--- NOTE | 2017-04-13 19:13 | CONS ---
Date/Time of Note Date/Time of Note DATE: 04/13/17 TIME: 19:13 Assessment/Plan Assessment/Plan Additional Assessment/Plan 61 yo male with 1)Abd Pain and Diarrhea, Possible C. difficile colitis 2)Elevated troponin, CAD 3)End-stage renal disease hemodialysis dependent 4)Hyperkalemia 5)Left foot gangrenous wounds 6)Severe peripheral vascular disease with severe infrapopliteal disease and pedal disease. 7)Hypertension. 8)CAD 9)Permanent Pacemaker. 10)Legally blind 11)Anemia of chronic disease 12)Possible Pna vs Edema On PO Vanco Hd tomorrowl. Repeat H/Hct and chemistry in am thank you for the opportunity to participate in the care of Mr Thibodeaux. Consultation Date/Type/Reason Admit Date/Time Apr 08, 2017 at 21:31 Initial Consult Date 04/10/17 Type of Consultation: Renal Referring Provider: POLY THRASHER MD 24 HR Interval Summary Constitutional: No requiring O2 Exam/Review of Systems Vital Signs Vitals Vital Signs Date Time Temp Pulse Resp B/P Pulse Ox O2 Delivery O2 Flow Rate FiO2 04/13/17 15:34 97.8 73 20 128/64 98 04/09/17 08:19 Nasal Cannula 2.0 Intake and Output 04/12/17 04/12/17 04/13/17 14:59 22:59 06:59 Intake Total 1220 ml 400 ml Output Total 6500 ml Balance -5280 ml 400 ml Exam Constitutional: alert, No distress ENMT: mucosa pink and moist Respiratory: No labored breathing Cardiovascular: No edema Gastrointestinal: soft Extremities: No edema Neurological: nl mental status, No lethargic Results Result Diagram: 04/12/17 0519 04/12/17 0519 Results 24 hrs Laboratory Tests Test 04/13/17 06:29 Lab Scanned Report BLOOD TRANSFUSION Medications Medications Current Medications Dextrose/Sodium Chloride (D5-1/2ns) 1,000 ml @ 50 mls/hr Q20H IV Last administered on 04/13/17 16:44; Admin Dose 50 MLS/HR; Start 04/08/17 at 23:30 Ondansetron HCl (Zofran Inj) 4 mg Q6H PRN IV NAUSEA AND/OR VOMITING; Start 04/08/17 at 23:30 Vancomycin HCl (Vancomycin Oral Syringe) 250 mg Q6 PO Last administered on 17:28; Admin Dose 250 MG; Start 04/09/17 at 00:00 Acetaminophen (Tylenol Tab) 650 mg Q4H PRN PO PAIN AND OR ELEVATED TEMP; Start 04/08/17 at 23:30 Acetaminophen/ Hydrocodone Bitart ([place] (5/325)) 1 tab Q4H PRN PO PAIN LEVEL 4 -6 Last administered on 04/13/17 15:19; Admin Dose 1 TAB; Start 04/08/17 at 23 :30 Amlodipine Besylate (Norvasc) 5 mg BID PO Last administered on 04/13/17 09:28 ; Admin Dose 5 MG; Start 04/09/17 at 09:00 Atorvastatin Calcium (Lipitor) 40 mg HS PO Last administered on 04/12/17 21:11 ; Admin Dose 40 MG; Start 04/09/17 at 21:00 Cinacalcet (Sensipar) 30 mg BID PO Last administered on 04/13/17 09:29; Admin Dose 30 MG; Start 04/09/17 at 09:00 Clopidogrel Bisulfate (plaVIX) 75 mg DAILY PO Last administered on 04/13/17 09:28; Admin Dose 75 MG; Start 04/09/17 at 09:00 Diphenhydramine HCl (Benadryl) 25 mg Q6H PRN PO ITCHING; Start 04/08/17 at 23: 30 Carvedilol (Coreg) 3.125 mg BID PO Last administered on 04/13/17 09:29; Admin Dose 3.125 MG; Start 04/09/17 at 09:00 Aspirin (Aspirin) 81 mg DAILY PO Last administered on 04/13/17 09:28; Admin Dose 81 MG; Start 04/11/17 at 09:00 Morphine Sulfate (morphine) 2 mg Q4H PRN IV SEVERE PAIN LEVEL 7-10 Last administered on 04/13/17 18:54; Admin Dose 2 MG; Start 04/10/17 at 15:30 Lactobacillus Acidophilus (Florajen3 Capsule) 1 each BID PO Last administered on 04/13/17 09:28; Admin Dose 1 EACH; Start 04/11/17 at 14:30 Gentamicin Sulfate GENTAMICIN PER PHARMACY NOTE XX ; Start 04/13/17 at 15:00 Metronidazole 100 ml @ 100 mls/hr Q8 IVPB ; Start 04/13/17 at 22:00 Vancomycin HCl (Vancocin) 250 ml @ 125 mls/hr ONCE IVPB Last administered on 04/13/17t 17:28; Admin Dose 125 MLS/HR; Start 04/13/17 at 17:00; Stop at 21:00 PIPER FELIX MD Apr 13, 2017 19:13
[2017-04-13] MEDS: ATORVASTATIN 40 MG TAB PO SCH (21:05)
[2017-04-13] MEDS: metroNIDAZOLE 500 MG/NS (PMX) 100 ML IVPB SCH (21:07)
[2017-04-14] VITALS (19 sets, daily range): BP systolic 129–169; BP diastolic 62–79; PULSE 57–78; RESP 18
[2017-04-14] MEDS: VANCOMYCIN HCL 250 MG/5ML POSYG PO SCH ×5 (00:24→23:20)
[2017-04-14] MEDS: morphine 2 MG INJ IV PRN ×5 (00:26→23:20)
[2017-04-14] MEDS: metroNIDAZOLE 500 MG/NS (PMX) 100 ML IVPB SCH (06:24)
[2017-04-14] MEDS ORDERED: GENTAMICIN 70 MG in DEXTROSE 5% 50 ML IVPB SCH (09:00)
[2017-04-14] MEDS: CINACALCET 30 MG TAB PO SCH ×2 (09:50→20:51)
[2017-04-14] MEDS: CALCIUM ACETATE 667 MG CAP PO SCH ×3 (09:50→17:55)
[2017-04-14] MEDS: CLOPIDOGREL 75 MG TAB PO SCH (09:50)
[2017-04-14] MEDS: ASPIRIN 81 MG TAB PO SCH (09:50)
[2017-04-14] MEDS: SEVELAMER 800 MG TAB PO SCH ×3 (09:50→17:55)
[2017-04-14] MEDS: L ACIDOPHIL/B LACTIS/B LONGUM CAPSULE PO SCH ×2 (09:50→20:51)
[2017-04-14] MEDS: AMLODIPINE 5 MG TAB PO SCH ×2 (09:51→20:52)
[2017-04-14] MEDS: BALSAM PERU/CASTOR OIL 60 GM TUBE TOP SCH ×2 (09:51→20:51)
--- NOTE | 2017-04-14 13:43 | CONS ---
Date/Time of Note Date/Time of Note DATE: 04/14/17 TIME: 13:41 Assessment/Plan Assessment/Plan Chief Complaint/Hosp Course SUBJECTIVE: No acute events per report. Patient is sleeping, looks comfortable , no fevers MICROBIOLOGY: Blood cultures negative. INDWELLINGS: The patient has AV fistula. ANTIMICROBIALS: 1. Gentamicin. 2. Vancomycin IV/PO. 3. Flagyl PHYSICAL EXAMINATION: GENERAL: This is a chronically ill-appearing, fragile, elderly man who is awake , in no distress. HEENT: Head atraumatic, normocephalic. Sclerae anicteric. Buccal mucosa dry. NECK: Supple. CHEST: Rise symmetrical. Breath sounds diminished to bases. HEART: S1, S2. ABDOMEN: Soft, bowel tones present. EXTREMITIES: Left foot gangrene. ASSESSMENT: 1. Systemic inflammatory response syndrome. 2. Clostridium difficile colitis. 3. Left foot dry gangrene. 4. End-stage renal disease. 5. Anemia. 6. Severe peripheral arterial and vascular disease. 7. History of permanent pacemaker placement. PLAN: Remains stable, continue Flagyl and oral vancomycin, dc other abx, pain management, vascular recommendations DW staff Problems: Consultation Date/Type/Reason Admit Date/Time Apr 08, 2017 at 21:31 Initial Consult Date 04/10/17 Type of Consultation: id Referring Provider: POLY THRASHER MD Exam/Review of Systems Vital Signs Vitals Vital Signs Date Time Temp Pulse Resp B/P Pulse Ox O2 Delivery O2 Flow Rate FiO2 04/14/17 12:23 72 04/14/17 12:14 98.4 18 150/72 97 Intake and Output 04/13/17 04/13/17 04/14/17 15:00 23:00 07:00 Intake Total 1000 ml Balance 1000 ml Results Result Diagram: 04/12/17 0519 04/12/17 05 Medications Medications Current Medications Dextrose/Sodium Chloride (D5-1/2ns) 1,000 ml @ 50 mls/hr Q20H IV Last administered on 04/13/17t 16:44; Admin Dose 50 MLS/HR; Start 04/08/17 at 23:30 Ondansetron HCl (Zofran Inj) 4 mg Q6H PRN IV NAUSEA AND/OR VOMITING; Start 04/08/17 at 23:30 Vancomycin HCl (Vancomycin Oral Syringe) 250 mg Q6 PO Last administered on 12:14; Admin Dose 250 MG; Start 04/09/17 at 00:00 Acetaminophen (Tylenol Tab) 650 mg Q4H PRN PO PAIN AND OR ELEVATED TEMP; Start 04/08/17 at 23:30 Acetaminophen/ Hydrocodone Bitart ([place] (5/325)) 1 tab Q4H PRN PO PAIN LEVEL 4 -6 Last administered on 04/13/17 15:19; Admin Dose 1 TAB; Start 04/08/17 at 23 :30 Amlodipine Besylate (Norvasc) 5 mg BID PO Last administered on 04/14/17 09:51 ; Admin Dose 5 MG; Start 04/09/17 at 09:00 Atorvastatin Calcium (Lipitor) 40 mg HS PO Last administered on 04/13/17 21: 05; Admin Dose 40 MG; Start 04/09/17 at 21:00 Cinacalcet (Sensipar) 30 mg BID PO Last administered on 04/14/17 09:50; Admin Dose 30 MG; Start 04/09/17 at 09:00 Clopidogrel Bisulfate (plaVIX) 75 mg DAILY PO Last administered on 04/14/17 09:50; Admin Dose 75 MG; Start 04/09/17 at 09:00 Diphenhydramine HCl (Benadryl) 25 mg Q6H PRN PO ITCHING; Start 04/08/17 at 23: 30 Carvedilol (Coreg) 3.125 mg BID PO Last administered on 04/14/17 09:51; Admin Dose 3.125 MG; Start 04/09/17 at 09:00 Aspirin (Aspirin) 81 mg DAILY PO Last administered on 04/14/17 09:50; Admin Dose 81 MG; Start 04/11/17 at 09:00 Morphine Sulfate (morphine) 2 mg Q4H PRN IV SEVERE PAIN LEVEL 7-10 Last administered on 04/14/17 12:03; Admin Dose 2 MG; Start 04/10/17 at 15:30 Lactobacillus Acidophilus (Florajen3 Capsule) 1 each BID PO Last administered on 04/14/17 09:50; Admin Dose 1 EACH; Start 04/11/17 at 14:30 Gentamicin Sulfate GENTAMICIN PER PHARMACY NOTE XX ; Start 04/13/17 at 15:00 Metronidazole (Flagyl 500 Mg (Pmx)) 100 ml @ 100 mls/hr Q8 IVPB Last administered on 04/14/17t 06:24; Admin Dose 100 MLS/HR; Start 04/13/17 at 22: 00 SHITAL MCKEON NP Apr 14, 2017 13:42
[2017-04-14] MEDS: metroNIDAZOLE 500 MG TAB PO SCH ×2 (14:49→22:25)
--- NOTE | 2017-04-14 16:55 | CONS ---
Date/Time of Note Date/Time of Note DATE: 04/14/17 TIME: 16:53 Consult Date/Type/Reason Admit Date/Time Apr 08, 2017 at 21:31 Initial Consult Date 04/10/17 Type of Consultation: CARD Ordering Provider: POLY THRASHER MD Subjective Cardiology follow-up progress note (on behalf of Dr.Leo Barr) S: Discussed with staff and rhythm strip was reviewed. Patient remains in sinus rhythm. Denies any chest pain or pressure to me at this point. He still has foot pain O: General: no acute distress HEENT: NC/AT. pupils are equal. round. NECK: NO JVD. no stridor. CV: RRR. systolic murmur; no gallop or rubs. PULM: +_ rhonchi. GI: SOFT, NT, ND, no rebound or guarding Extremity: + necrotic/GANGRENE toes/foot neuro: awake and alert, Psych: calm and pleasant rectal: deferred ECG: Normal sinus rhythm. ST-T wave abnormality consistent with inferolateral ischemia Objective Vital Signs Date Time Temp Pulse Resp B/P Pulse Ox O2 Delivery O2 Flow Rate FiO2 04/14/17 16:18 78 04/14/17 15:54 97.6 18 156/76 97 Intake and Output 04/13/17 04/13/17 04/14/17 14:59 22:59 06:59 Intake Total 1000 ml Balance 1000 ml Results/Medications Result Diagram: 04/12/17 0519 04/12/17 0519 Medications Current Medications Dextrose/Sodium Chloride (D5-1/2ns) 1,000 ml @ 50 mls/hr Q20H IV Last administered on 04/13/17 16:44; Admin Dose 50 MLS/HR; Start 04/08/17 at 23:30 Ondansetron HCl (Zofran Inj) 4 mg Q6H PRN IV NAUSEA AND/OR VOMITING; Start 04/08/17 at 23:30 Vancomycin HCl (Vancomycin Oral Syringe) 250 mg Q6 PO Last administered on 12:14; Admin Dose 250 MG; Start 04/09/17 at 00:00 Acetaminophen (Tylenol Tab) 650 mg Q4H PRN PO PAIN AND OR ELEVATED TEMP; Start 04/08/17 at 23:30 Acetaminophen/ Hydrocodone Bitart ([place] (5/325)) 1 tab Q4H PRN PO PAIN LEVEL 4 -6 Last administered on 04/13/17 15:19; Admin Dose 1 TAB; Start 04/08/17 at 23 :30 Amlodipine Besylate (Norvasc) 5 mg BID PO Last administered on 04/14/17 09:51 ; Admin Dose 5 MG; Start 04/09/17 at 09:00 Atorvastatin Calcium (Lipitor) 40 mg HS PO Last administered on 04/13/17 21: 05; Admin Dose 40 MG; Start 04/09/17 at 21:00 Cinacalcet (Sensipar) 30 mg BID PO Last administered on 04/14/17 09:50; Admin Dose 30 MG; Start 04/09/17 at 09:00 Clopidogrel Bisulfate (plaVIX) 75 mg DAILY PO Last administered on 04/14/17 09:50; Admin Dose 75 MG; Start 04/09/17 at 09:00 Diphenhydramine HCl (Benadryl) 25 mg Q6H PRN PO ITCHING; Start 04/08/17 at 23: 30 Carvedilol (Coreg) 3.125 mg BID PO Last administered on 04/14/17 09:51; Admin Dose 3.125 MG; Start 04/09/17 at 09:00 Aspirin (Aspirin) 81 mg DAILY PO Last administered on 04/14/17 09:50; Admin Dose 81 MG; Start 04/11/17 at 09:00 Morphine Sulfate (morphine) 2 mg Q4H PRN IV SEVERE PAIN LEVEL 7-10 Last administered on 04/14/17 12:03; Admin Dose 2 MG; Start 04/10/17 at 15:30 Lactobacillus Acidophilus (Florajen3 Capsule) 1 each BID PO Last administered on 04/14/17 09:50; Admin Dose 1 EACH; Start 04/11/17 at 14:30 Metronidazole (Flagyl) 500 mg Q8 PO Last administered on 04/14/17 14:49; Admin Dose 500 MG; Start 04/14/17 at 14:00 Assessment/Plan Chief Complaint/Hosp Course 1. Non-ST elevation myocardial infarction 2. End-stage renal disease on hemodialysis 3. Severe peripheral vascular disease 4. Gangrene of toe/foot 5. Diabetes 6. Dyslipidemia 7. Congestive heart failure: EF 40% 8. Severe and worsening anemia 9. Known severe coronary artery disease including calcified left main disease 10. Ischemic cardiomyopathy Recommendations: I will CONT aspirin to 81 mg. off of heparin drip now We will try to manage the patient with continued and aggressive medical therapy as much as possible. Antibiotic will be managed as per internal medicine IDs recommendations. I will try to review the old films which was done not too long ago at [facility] to review his coronary angiogram. Based on information I have so far he does not appear to be amenable to any intervention safely or bypass surgery. Consider CT surgery consultation but I highly doubt the patient would be a reasonable candidate for coronary bypass graft Hemodialysis as per renal. Thank you for his referral. SENTHIL FERRELL MD [facility] Problems: SENTHIL FERRELL MD Apr 14, 2017 16:55
--- NOTE | 2017-04-14 17:07 | PN ---
Date/Time of Note Date/Time of Note DATE: 04/14/17 TIME: 17:05 Assessment/Plan VTE Prophylaxis VTE Prophylaxis Intervention: SCD's Lines/Catheters IV [facility] Peripheral IV Urinary Cath still in place: No Assessment/Plan Chief Complaint/Hosp Course Patient stated decrease in frequency of diarrhea. H yperkalemia, status post hemodialysis today Assessment/Plan -C. difficile colitis, continue vancomycin p.o. Dr. Tobias is following in infection disease consultation. -Elevated troponin, allowing in cardiology consultation. -End-stage renal disease hemodialysis dependent. Dr. Wallace is following in nephrology consultation. Continue hemodialysis. -Hyperkalemia - Possible PNA, continue abx. Dr Tobias is asked to see pt in ID consultation. - Left foot gangrenous wounds - Severe peripheral vascular disease with severe infrapopliteal disease and pedal disease. - Hypertension. - CAD - Permanent Pacemaker. - Legally blind - Anemia of chronic disease. Further recommendations based on clinical course. Plan of care discussed with Dr. French Further recommendations based on clinical course. Plan of care discussed with Dr. French. Problems: Exam/Review of Systems Vital Signs Vitals Vital Signs Date Time Temp Pulse Resp B/P Pulse Ox O2 Delivery O2 Flow Rate FiO2 04/14/17 16:18 78 04/14/17 15:54 97.6 18 156/76 97 Intake and Output 04/13/17 04/13/17 04/14/17 15:00 23:00 07:00 Intake Total 1000 ml Balance 1000 ml Exam Constitutional: alert, oriented Eyes: other (Blind) Neck: supple Respiratory: diminished breath sounds Cardiovascular: other (Paced rhythm) Gastrointestinal: soft, tender Musculoskeletal: nl extremities to inspection (Right heel gangrenous wound, left foot gangrene) Extremities: normal pulses, other (Bilateral feet gangrene) Results Result Diagram: 04/12/1751804/12/17518 Medications Medications Current Medications Dextrose/Sodium Chloride (D5-1/2ns) 1,000 ml @ 50 mls/hr Q20H IV Last administered on 04/13/17t 16:44; Admin Dose 50 MLS/HR; Start 04/08/17 at 23:30 Ondansetron HCl (Zofran Inj) 4 mg Q6H PRN IV NAUSEA AND/OR VOMITING; Start 04/08/17 at 23:30 Vancomycin HCl (Vancomycin Oral Syringe) 250 mg Q6 PO Last administered on 12:14; Admin Dose 250 MG; Start 04/09/17 at 00:00 Acetaminophen (Tylenol Tab) 650 mg Q4H PRN PO PAIN AND OR ELEVATED TEMP; Start 04/08/17 at 23:30 Acetaminophen/ Hydrocodone Bitart ([place] (5/325)) 1 tab Q4H PRN PO PAIN LEVEL 4 -6 Last administered on 04/13/17 15:19; Admin Dose 1 TAB; Start 04/08/17 at 23 :30 Amlodipine Besylate (Norvasc) 5 mg BID PO Last administered on 04/14/17 09:51 ; Admin Dose 5 MG; Start 04/09/17 at 09:00 Atorvastatin Calcium (Lipitor) 40 mg HS PO Last administered on 04/13/17 21: 05; Admin Dose 40 MG; Start 04/09/17 at 21:00 Cinacalcet (Sensipar) 30 mg BID PO Last administered on 04/14/17 09:50; Admin Dose 30 MG; Start 04/09/17 at 09:00 Clopidogrel Bisulfate (plaVIX) 75 mg DAILY PO Last administered on 04/14/17 09:50; Admin Dose 75 MG; Start 04/09/17 at 09:00 Diphenhydramine HCl (Benadryl) 25 mg Q6H PRN PO ITCHING; Start 04/08/17 at 23: 30 Carvedilol (Coreg) 3.125 mg BID PO Last administered on 04/14/17 09:51; Admin Dose 3.125 MG; Start 04/09/17 at 09:00 Aspirin (Aspirin) 81 mg DAILY PO Last administered on 04/14/17 09:50; Admin Dose 81 MG; Start 04/11/17 at 09:00 Morphine Sulfate (morphine) 2 mg Q4H PRN IV SEVERE PAIN LEVEL 7-10 Last administered on 04/14/17 12:03; Admin Dose 2 MG; Start 04/10/17 at 15:30 Lactobacillus Acidophilus (Florajen3 Capsule) 1 each BID PO Last administered on 04/14/17 09:50; Admin Dose 1 EACH; Start 12/8/17 at 14:30 Metronidazole (Flagyl) 500 mg Q8 PO Last administered on 04/14/17t 14:49; Admin Dose 500 MG; Start 04/14/17 at 14:00 VIV KING Apr 14, 2017 17:07
[2017-04-14] MEDS: DEXTROSE 5%-0.45% NACL 1,000 ML IV SCH (17:33)
--- NOTE | 2017-04-14 17:36 | CONS ---
Date/Time of Note Date/Time of Note DATE: 04/14/17 TIME: 17:35 Assessment/Plan Assessment/Plan Additional Assessment/Plan 61 yo male with 1)Abd Pain and Diarrhea, Possible C. difficile colitis 2)Elevated troponin, CAD 3)End-stage renal disease hemodialysis dependent 4)Hyperkalemia 5)Left foot gangrenous wounds 6)Severe peripheral vascular disease with severe infrapopliteal disease and pedal disease. 7)Hypertension. 8)CAD 9)Permanent Pacemaker. 10)Legally blind 11)Anemia of chronic disease 12)Possible Pna vs Edema Cont maintenance HD MWF thank you for the opportunity to participate in the care of Mr Thibodeaux. Consultation Date/Type/Reason Admit Date/Time Apr 08, 2017 at 21:31 Initial Consult Date 04/10/17 Type of Consultation: CARD Referring Provider: POLY THRASHER MD 24 HR Interval Summary Free Text/Dictation S/p HD, no complications. RN Reports stool more formed. Constitutional: No requiring O2 Exam/Review of Systems Vital Signs Vitals Vital Signs Date Time Temp Pulse Resp B/P Pulse Ox O2 Delivery O2 Flow Rate FiO2 04/14/17 16:18 78 04/14/17 15:54 97.6 18 156/76 97 Intake and Output 04/13/17 04/13/17 04/14/17 15:00 23:00 07:00 Intake Total 1000 ml Balance 1000 ml Exam Constitutional: frail Head: atraumatic Respiratory: No labored breathing Cardiovascular: No edema Extremities: No edema Neurological: No lethargic Skin: No diaphoresis Results Result Diagram: 04/12/17 0519 04/12/17 0519 Medications Medications Current Medications Dextrose/Sodium Chloride (D5-1/2ns) 1,000 ml @ 50 mls/hr Q20H IV Last administered on 04/14/17 17:33; Admin Dose 50 MLS/HR; Start 04/08/17 at 23:30 Ondansetron HCl (Zofran Inj) 4 mg Q6H PRN IV NAUSEA AND/OR VOMITING; Start 04/08/17 at 23:30 Vancomycin HCl (Vancomycin Oral Syringe) 250 mg Q6 PO Last administered on 12:14; Admin Dose 250 MG; Start 04/09/17 at 00:00 Acetaminophen (Tylenol Tab) 650 mg Q4H PRN PO PAIN AND OR ELEVATED TEMP; Start 04/08/17 at 23:30 Acetaminophen/ Hydrocodone Bitart ([place] (5/325)) 1 tab Q4H PRN PO PAIN LEVEL 4 -6 Last administered on 04/13/17 15:19; Admin Dose 1 TAB; Start 04/08/17 at 23 :30 Amlodipine Besylate (Norvasc) 5 mg BID PO Last administered on 04/14/17 09:51 ; Admin Dose 5 MG; Start 04/09/17 at 09:00 Atorvastatin Calcium (Lipitor) 40 mg HS PO Last administered on 04/13/17 21: 05; Admin Dose 40 MG; Start 04/09/17 at 21:00 Cinacalcet (Sensipar) 30 mg BID PO Last administered on 04/14/17 09:50; Admin Dose 30 MG; Start 04/09/17 at 09:00 Clopidogrel Bisulfate (plaVIX) 75 mg DAILY PO Last administered on 04/14/17 09:50; Admin Dose 75 MG; Start 04/09/17 at 09:00 Diphenhydramine HCl (Benadryl) 25 mg Q6H PRN PO ITCHING; Start 04/08/17 at 23: 30 Carvedilol (Coreg) 3.125 mg BID PO Last administered on 04/14/17 09:51; Admin Dose 3.125 MG; Start 04/09/17 at 09:00 Aspirin (Aspirin) 81 mg DAILY PO Last administered on 04/14/17 09:50; Admin Dose 81 MG; Start 04/11/17 at 09:00 Morphine Sulfate (morphine) 2 mg Q4H PRN IV SEVERE PAIN LEVEL 7-10 Last administered on 04/14/17 17:30; Admin Dose 2 MG; Start 04/10/17 at 15:30 Lactobacillus Acidophilus (Florajen3 Capsule) 1 each BID PO Last administered on 04/14/17 09:50; Admin Dose 1 EACH; Start 04/11/17 at 14:30 Metronidazole (Flagyl) 500 mg Q8 PO Last administered on 04/14/17 14:49; Admin Dose 500 MG; Start 04/14/17 at 14:00 PIPER FELIX MD Apr 14, 2017 17:36
[2017-04-14] MEDS: ATORVASTATIN 40 MG TAB PO SCH (20:51)
[2017-04-15] VITALS (11 sets, daily range): BP systolic 144–156; BP diastolic 60–78; PULSE 69–72; RESP 16–20
[2017-04-15] MEDS: HYDROCODONE/APAP (5/325) TAB PO PRN ×2 (01:06→05:29)
[2017-04-15] MEDS: morphine 2 MG INJ IV PRN ×4 (03:20→21:09)
[2017-04-15] MEDS: metroNIDAZOLE 500 MG TAB PO SCH ×3 (05:28→21:09)
[2017-04-15] MEDS: VANCOMYCIN HCL 250 MG/5ML POSYG PO SCH ×3 (05:29→17:02)
[2017-04-15 06:38] LABS: ABNORMAL IP MESSAGE 1; BASOPHIL # 0.1 10^3/ul (0.0-0.1); BASOPHILS % 0.6 % (0.0-2.0); EOSINOPHILS # 0.2 10^3/ul (0.0-0.5); EOSINOPHILS % 1.6 % (0.0-7.0); HEMATOCRIT 28.8 % (42.0-52.0); HEMOGLOBIN 9.1 g/dl (14.0-18.0); LYMPHOCYTES # 0.5 10^3/ul (0.8-2.9); LYMPHOCYTES % 4.7 % (15.0-51.0); MEAN CORPUSCULAR HEMOGLOBIN 26.8 pg (29.0-33.0); MEAN CORPUSCULAR HGB CONC 31.6 g/dl (32.0-37.0); MEAN CORPUSCULAR VOLUME 84.7 fl (82.0-101.0); MEAN PLATELET VOLUME 9.4 fl (7.4-10.4); MONOCYTE # 1.2 10^3/ul (0.3-0.9); MONOCYTES % 11.4 % (0.0-11.0); NEUTROPHIL # 8.6 10^3/ul (1.6-7.5); NEUTROPHILS % 80.9 % (39.0-77.0); PLATELET COUNT 215 10^3/UL (140-415); POSITIVE DIFF @See below; RED CELL DISTRIBUTION WIDTH 19.2 % (11.5-14.5); WHITE BLOOD COUNT 10.6 10^3/ul (4.8-10.8)
[2017-04-15 06:48] LABS: CALCIUM 9.5 mg/dl (8.4-10.2); CREATININE 6.74 mg/dl (0.61-1.24); POTASSIUM 4.8 mmol/L (3.5-5.1)
[2017-04-15] MEDS: SEVELAMER 800 MG TAB PO SCH ×3 (08:07→17:02)
[2017-04-15] MEDS: CINACALCET 30 MG TAB PO SCH ×2 (08:07→21:10)
[2017-04-15] MEDS: AMLODIPINE 5 MG TAB PO SCH ×2 (08:08→21:10)
[2017-04-15] MEDS: L ACIDOPHIL/B LACTIS/B LONGUM CAPSULE PO SCH ×2 (08:08→21:10)
[2017-04-15] MEDS: CLOPIDOGREL 75 MG TAB PO SCH (08:08)
[2017-04-15] MEDS: ASPIRIN 81 MG TAB PO SCH (08:08)
[2017-04-15] MEDS: CALCIUM ACETATE 667 MG CAP PO SCH ×3 (08:08→17:02)
[2017-04-15] MEDS: BALSAM PERU/CASTOR OIL 60 GM TUBE TOP SCH ×2 (08:09→21:11)
[2017-04-15] MEDS: DEXTROSE 5%-0.45% NACL 1,000 ML IV SCH (11:35)
--- NOTE | 2017-04-15 15:45 | CONS ---
Date/Time of Note Date/Time of Note DATE: 04/15/17 TIME: 15:43 Consult Date/Type/Reason Admit Date/Time Apr 08, 2017 at 21:31 Initial Consult Date 04/10/17 Type of Consultation: CARD Ordering Provider: POLY THRASHER MD Subjective Cardiology follow-up progress note (on behalf of Dr.Leo Barr) S: Discussed with staff and rhythm strip was reviewed. Patient remains in sinus rhythm. d. w his pt denies any chest pain or pressure to me at this point. He still has foot pain he denies PND orthopnea O: General: no acute distress HEENT: NC/AT. eyes are blind NECK: NO JVD. no stridor. CV: RRR. systolic murmur; no gallop or rubs. PULM: +_ rhonchi. GI: SOFT, NT, ND, no rebound or guarding Extremity: + necrotic/GANGRENE toes/foot neuro: awake and alert, Psych: calm and pleasant rectal: deferred ECG: Normal sinus rhythm. ST-T wave abnormality consistent with inferolateral ischemia Objective Vital Signs Date Time Temp Pulse Resp B/P Pulse Ox O2 Delivery O2 Flow Rate FiO2 04/15/17 12:48 96.9 69 16 152/75 99 Intake and Output 04/14/17 04/14/17 04/15/17 15:00 23:00 07:00 Intake Total 300 ml 800 ml 500 ml Output Total 3000 ml Balance -2700 ml 800 ml 500 ml Results/Medications Result Diagram: 04/15/17 0556 04/15/17 0556 Results 24 hrs Laboratory Tests Test 04/15/17 05:56 White Blood Count 10.6 Red Blood Count 3.40 L Hemoglobin 9.1 L Hematocrit 28.8 L Mean Corpuscular Volume 84.7 Mean Corpuscular Hemoglobin 26.8 L Mean Corpuscular Hemoglobin Concent 31.6 L Red Cell Distribution Width 19.2 H Platelet Count 215 Mean Platelet Volume 9.4 Neutrophils % 80.9 H Lymphocytes % 4.7 L Monocytes % 11.4 H Eosinophils % 1.6 Basophils % 0.6 Nucleated Red Blood Cells % 0.0 Neutrophils # 8.6 H Lymphocytes # 0.5 L Monocytes # 1.2 H Eosinophils # 0.2 Basophils # 0.1 Nucleated Red Blood Cells # 0.0 Sodium Level 138 Potassium Level 4.8 Chloride Level 100 Carbon Dioxide Level 26 Anion Gap 17 H Blood Urea Nitrogen 48 H Creatinine 6.74 H Glucose Level 91 Calcium Level 9.5 Medications Current Medications Dextrose/Sodium Chloride (D5-1/2ns) 1,000 ml @ 50 mls/hr Q20H IV Last administered on 04/15/17 11:35; Admin Dose 50 MLS/HR; Start 04/08/17 at 23:30 Ondansetron HCl (Zofran Inj) 4 mg Q6H PRN IV NAUSEA AND/OR VOMITING; Start 04/08/17 at 23:30 Vancomycin HCl (Vancomycin Oral Syringe) 250 mg Q6 PO Last administered on 11:34; Admin Dose 250 MG; Start 04/09/17 at 00:00 Acetaminophen (Tylenol Tab) 650 mg Q4H PRN PO PAIN AND OR ELEVATED TEMP; Start 04/08/17 at 23:30 Acetaminophen/ Hydrocodone Bitart ([place] (5/325)) 1 tab Q4H PRN PO PAIN LEVEL 4 -6 Last administered on 04/15/17 05:29; Admin Dose 1 TAB; Start 04/08/17 at 23 :30 Amlodipine Besylate (Norvasc) 5 mg BID PO Last administered on 04/15/17 08:08 ; Admin Dose 5 MG; Start 04/09/17 at 09:00 Atorvastatin Calcium (Lipitor) 40 mg HS PO Last administered on 04/14/17 20: 51; Admin Dose 40 MG; Start 04/09/17 at 21:00 Cinacalcet (Sensipar) 30 mg BID PO Last administered on 04/15/17 08:07; Admin Dose 30 MG; Start 04/09/17 at 09:00 Clopidogrel Bisulfate (plaVIX) 75 mg DAILY PO Last administered on 04/15/17 08:08; Admin Dose 75 MG; Start 04/09/17 at 09:00 Diphenhydramine HCl (Benadryl) 25 mg Q6H PRN PO ITCHING; Start 04/08/17 at 23: 30 Carvedilol (Coreg) 3.125 mg BID PO Last administered on 04/15/17 08:08; Admin Dose 3.125 MG; Start 04/09/17 at 09:00 Aspirin (Aspirin) 81 mg DAILY PO Last administered on 04/15/17 08:08; Admin Dose 81 MG; Start 04/11/17 at 09:00 Morphine Sulfate (morphine) 2 mg Q4H PRN IV SEVERE PAIN LEVEL 7-10 Last administered on 04/15/17 12:26; Admin Dose 2 MG; Start 04/10/17 at 15:30 Lactobacillus Acidophilus (Florajen3 Capsule) 1 each BID PO Last administered on 04/15/17 08:08; Admin Dose 1 EACH; Start 04/11/17 at 14:30 Metronidazole (Flagyl) 500 mg Q8 PO Last administered on 04/15/17 11:34; Admin Dose 500 MG; Start 04/14/17 at 14:00 Assessment/Plan Chief Complaint/Hosp Course 1. Non-ST elevation myocardial infarction 2. End-stage renal disease on hemodialysis 3. Severe peripheral vascular disease 4. Gangrene of toe/foot 5. Diabetes 6. Dyslipidemia 7. Congestive heart failure: EF 40% 8. Severe and worsening anemia 9. Known severe coronary artery disease including calcified left main disease 10. Ischemic cardiomyopathy Recommendations: I will CONT aspirin to 81 mg. We cont to manage the patient with continued and aggressive medical therapy as much as possible. Antibiotic will be managed as per internal medicine IDs recommendations. I will try to review the old films which was done not too long ago at [facility] to review his coronary angiogram. Based on information I have so far he does not appear to be amenable to any intervention safely or bypass surgery. Consider CT surgery consultation but I highly doubt the patient would be a reasonable candidate for coronary bypass graft Hemodialysis as per renal. Thank you for his referral. SENTHIL FERRELL MD [facility] Problems: SENTHIL FERRELL MD Apr 15, 2017 15:45
--- NOTE | 2017-04-15 15:53 | CONS ---
Date/Time of Note Date/Time of Note DATE: 04/15/17 TIME: 15:51 Assessment/Plan Assessment/Plan Chief Complaint/Hosp Course SUBJECTIVE: No acute events per report. Patient is awake, no fevers, no diarrhea, looks comfortable MICROBIOLOGY: Blood cultures negative. INDWELLINGS: The patient has AV fistula. ANTIMICROBIALS: Vancomycin PO, Flagyl PHYSICAL EXAMINATION: GENERAL: This is a chronically ill-appearing, fragile, elderly man who is awake , in no distress. HEENT: Head atraumatic, normocephalic. Sclerae anicteric. Buccal mucosa dry. NECK: Supple. CHEST: Rise symmetrical. Breath sounds diminished to bases. HEART: S1, S2. ABDOMEN: Soft, bowel tones present. EXTREMITIES: Left foot gangrene. ASSESSMENT: 1. Systemic inflammatory response syndrome. 2. Clostridium difficile colitis. 3. Left foot dry gangrene. 4. End-stage renal disease. 5. Anemia. 6. Severe peripheral arterial and vascular disease. 7. History of permanent pacemaker placement. PLAN: Remains stable, continue Flagyl and oral vancomycin, pain management, vascular recommendations [facility] staff Problems: Consultation Date/Type/Reason Admit Date/Time Apr 08, 2017 at 21:31 Initial Consult Date 04/10/17 Type of Consultation: id Referring Provider: POLY THRASHER MD Exam/Review of Systems Vital Signs Vitals Vital Signs Date Time Temp Pulse Resp B/P Pulse Ox O2 Delivery O2 Flow Rate FiO2 04/15/17 12:48 96.9 69 16 152/75 99 Intake and Output 04/14/17 04/14/17 04/15/17 15:00 23:00 07:00 Intake Total 300 ml 800 ml 500 ml Output Total 3000 ml Balance -2700 ml 800 ml 500 ml Results Result Diagram: 04/15/17 0556 04/15/17 0556 Results 24 hrs Laboratory Tests Test 04/15/17 05:56 White Blood Count 10.6 Red Blood Count 3.40 L Hemoglobin 9.1 L Hematocrit 28.8 L Mean Corpuscular Volume 84.7 Mean Corpuscular Hemoglobin 26.8 L Mean Corpuscular Hemoglobin Concent 31.6 L Red Cell Distribution Width 19.2 H Platelet Count 215 Mean Platelet Volume 9.4 Neutrophils % 80.9 H Lymphocytes % 4.7 L Monocytes % 11.4 H Eosinophils % 1.6 Basophils % 0.6 Nucleated Red Blood Cells % 0.0 Neutrophils # 8.6 H Lymphocytes # 0.5 L Monocytes # 1.2 H Eosinophils # 0.2 Basophils # 0.1 Nucleated Red Blood Cells # 0.0 Sodium Level 138 Potassium Level 4.8 Chloride Level 100 Carbon Dioxide Level 26 Anion Gap 17 H Blood Urea Nitrogen 48 H Creatinine 6.74 H Glucose Level 91 Calcium Level 9.5 Medications Medications Current Medications Dextrose/Sodium Chloride (D5-1/2ns) 1,000 ml @ 50 mls/hr Q20H IV Last administered on 04/15/17 11:35; Admin Dose 50 MLS/HR; Start 04/08/17 at 23:30 Ondansetron HCl (Zofran Inj) 4 mg Q6H PRN IV NAUSEA AND/OR VOMITING; Start 04/08/17 at 23:30 Vancomycin HCl (Vancomycin Oral Syringe) 250 mg Q6 PO Last administered on 11:34; Admin Dose 250 MG; Start 04/09/17 at 00:00 Acetaminophen (Tylenol Tab) 650 mg Q4H PRN PO PAIN AND OR ELEVATED TEMP; Start 04/08/17 at 23:30 Acetaminophen/ Hydrocodone Bitart ([place] (5/325)) 1 tab Q4H PRN PO PAIN LEVEL 4 -6 Last administered on 04/15/17 05:29; Admin Dose 1 TAB; Start 04/08/17 at 23 :30 Amlodipine Besylate (Norvasc) 5 mg BID PO Last administered on 04/15/17 08:08 ; Admin Dose 5 MG; Start 04/09/17 at 09:00 Atorvastatin Calcium (Lipitor) 40 mg HS PO Last administered on 04/14/17 20: 51; Admin Dose 40 MG; Start 04/09/17 at 21:00 Cinacalcet (Sensipar) 30 mg BID PO Last administered on 04/15/17 08:07; Admin Dose 30 MG; Start 04/09/17 at 09:00 Clopidogrel Bisulfate (plaVIX) 75 mg DAILY PO Last administered on 04/15/17 08:08; Admin Dose 75 MG; Start 04/09/17 at 09:00 Diphenhydramine HCl (Benadryl) 25 mg Q6H PRN PO ITCHING; Start 04/08/17 at 23: 30 Carvedilol (Coreg) 3.125 mg BID PO Last administered on 04/15/17 08:08; Admin Dose 3.125 MG; Start 04/09/17 at 09:00 Aspirin (Aspirin) 81 mg DAILY PO Last administered on 04/15/17 08:08; Admin Dose 81 MG; Start 04/11/17 at 09:00 Morphine Sulfate (morphine) 2 mg Q4H PRN IV SEVERE PAIN LEVEL 7-10 Last administered on 04/15/17 12:26; Admin Dose 2 MG; Start 04/10/17 at 15:30 Lactobacillus Acidophilus (Florajen3 Capsule) 1 each BID PO Last administered on 04/15/17 08:08; Admin Dose 1 EACH; Start 04/11/17 at 14:30 Metronidazole (Flagyl) 500 mg Q8 PO Last administered on 04/15/17 11:34; Admin Dose 500 MG; Start 04/14/17 at 14:00 SHITAL MCKEON NP Apr 15, 2017 15:53
--- NOTE | 2017-04-15 16:42 | PN ---
Date/Time of Note Date/Time of Note DATE: 04/15/17 TIME: 16:41 Assessment/Plan VTE Prophylaxis VTE Prophylaxis Intervention: SCD's Lines/Catheters IV Catheter Type (from [facility]): Peripheral IV Urinary Cath still in place: No Assessment/Plan Chief Complaint/Hosp Course Patient stated that he feels better, no diarrhea today. Assessment/Plan -C. difficile colitis, continue Flagyl and vancomycin p.o. Dr. Tobias is following in infection disease consultation. -Elevated troponin, allowing in cardiology consultation. -End-stage renal disease hemodialysis dependent. Dr. Wallace is following in nephrology consultation. Continue hemodialysis. -Hyperkalemia - Possible PNA, continue abx. Dr Tobias is asked to see pt in ID consultation. - Left foot gangrenous wounds - Severe peripheral vascular disease with severe infrapopliteal disease and pedal disease. - Hypertension. - CAD - Permanent Pacemaker. - Legally blind - Anemia of chronic disease. Further recommendations based on clinical course. Plan of care discussed with Dr. French Further recommendations based on clinical course. Plan of care discussed with Dr. French. Problems: Exam/Review of Systems Vital Signs Vitals Vital Signs Date Time Temp Pulse Resp B/P Pulse Ox O2 Delivery O2 Flow Rate FiO2 04/15/17 16:28 72 04/15/17 16:22 98.0 16 149/76 97 Intake and Output 04/14/17 04/14/17 04/15/17 15:00 23:00 07:00 Intake Total 300 ml 800 ml 500 ml Output Total 3000 ml Balance -2700 ml 800 ml 500 ml Exam Constitutional: alert, oriented Eyes: other (Blind) Respiratory: diminished breath sounds Cardiovascular: other (Paced rhythm) Gastrointestinal: soft, tender Musculoskeletal: nl extremities to inspection (Right heel gangrenous wound, left foot gangrene) Extremities: normal pulses, other (Bilateral feet gangrene) Results Result Diagram: 04/15/17 0556 04/15/17 0556 Results 24 hrs Laboratory Tests Test 04/15/17 05:56 White Blood Count 10.6 Red Blood Count 3.40 L Hemoglobin 9.1 L Hematocrit 28.8 L Mean Corpuscular Volume 84.7 Mean Corpuscular Hemoglobin 26.8 L Mean Corpuscular Hemoglobin Concent 31.6 L Red Cell Distribution Width 19.2 H Platelet Count 215 Mean Platelet Volume 9.4 Neutrophils % 80.9 H Lymphocytes % 4.7 L Monocytes % 11.4 H Eosinophils % 1.6 Basophils % 0.6 Nucleated Red Blood Cells % 0.0 Neutrophils # 8.6 H Lymphocytes # 0.5 L Monocytes # 1.2 H Eosinophils # 0.2 Basophils # 0.1 Nucleated Red Blood Cells # 0.0 Sodium Level 138 Potassium Level 4.8 Chloride Level 100 Carbon Dioxide Level 26 Anion Gap 17 H Blood Urea Nitrogen 48 H Creatinine 6.74 H Glucose Level 91 Calcium Level 9.5 Medications Medications Current Medications Dextrose/Sodium Chloride (D5-1/2ns) 1,000 ml @ 50 mls/hr Q20H IV Last administered on 04/15/17 11:35; Admin Dose 50 MLS/HR; Start 04/08/17 at 23:30 Ondansetron HCl (Zofran Inj) 4 mg Q6H PRN IV NAUSEA AND/OR VOMITING; Start 04/08/17 at 23:30 Vancomycin HCl (Vancomycin Oral Syringe) 250 mg Q6 PO Last administered on 11:34; Admin Dose 250 MG; Start 04/09/17 at 00:00 Acetaminophen (Tylenol Tab) 650 mg Q4H PRN PO PAIN AND OR ELEVATED TEMP; Start 04/08/17 at 23:30 Acetaminophen/ Hydrocodone Bitart ([place] (5/325)) 1 tab Q4H PRN PO PAIN LEVEL 4 -6 Last administered on 04/15/17 05:29; Admin Dose 1 TAB; Start 04/08/17 at 23 :30 Amlodipine Besylate (Norvasc) 5 mg BID PO Last administered on 04/15/17 08:08 ; Admin Dose 5 MG; Start 04/09/17 at 09:00 Atorvastatin Calcium (Lipitor) 40 mg HS PO Last administered on 04/14/17 20: 51; Admin Dose 40 MG; Start 04/09/17 at 21:00 Cinacalcet (Sensipar) 30 mg BID PO Last administered on 04/15/17 08:07; Admin Dose 30 MG; Start 04/09/17 at 09:00 Clopidogrel Bisulfate (plaVIX) 75 mg DAILY PO Last administered on 04/15/17 08:08; Admin Dose 75 MG; Start 04/09/17 at 09:00 Diphenhydramine HCl (Benadryl) 25 mg Q6H PRN PO ITCHING; Start 04/08/17 at 23: 30 Carvedilol (Coreg) 3.125 mg BID PO Last administered on 04/15/17 08:08; Admin Dose 3.125 MG; Start 04/09/17 at 09:00 Aspirin (Aspirin) 81 mg DAILY PO Last administered on 04/15/17 08:08; Admin Dose 81 MG; Start 04/11/17 at 09:00 Morphine Sulfate (morphine) 2 mg Q4H PRN IV SEVERE PAIN LEVEL 7-10 Last administered on 04/15/17 12:26; Admin Dose 2 MG; Start 04/10/17 at 15:30 Lactobacillus Acidophilus (Florajen3 Capsule) 1 each BID PO Last administered on 04/15/17 08:08; Admin Dose 1 EACH; Start 04/11/17 at 14:30 Metronidazole (Flagyl) 500 mg Q8 PO Last administered on 04/15/17 11:34; Admin Dose 500 MG; Start 04/14/17 at 14:00 VIV KING Apr 15, 2017 16:42
--- NOTE | 2017-04-15 20:55 | CONS ---
Date/Time of Note Date/Time of Note DATE: 04/15/17 TIME: 20:54 Assessment/Plan Assessment/Plan Additional Assessment/Plan 61 yo male with 1)Abd Pain and Diarrhea, C. difficile colitis 2)Elevated troponin, CAD 3)End-stage renal disease hemodialysis dependent 4)Hyperkalemia 5)Left foot gangrenous wounds 6)Severe peripheral vascular disease with severe infrapopliteal disease and pedal disease. 7)Hypertension. 8)CAD 9)Permanent Pacemaker. 10)Legally blind 11)Anemia of chronic disease 12)Possible Pna vs Edema Cont maintenance HD MWF HD tomorrow Epogen ordered with HD thank you for the opportunity to participate in the care of Mr Thibodeaux. Consultation Date/Type/Reason Admit Date/Time Apr 08, 2017 at 21:31 Initial Consult Date 04/10/17 Type of Consultation: Renal Referring Provider: POLY THRASHER MD 24 HR Interval Summary Constitutional: No requiring O2 Exam/Review of Systems Vital Signs Vitals Vital Signs Date Time Temp Pulse Resp B/P Pulse Ox O2 Delivery O2 Flow Rate FiO2 04/15/17 20:18 97.8 80 18 144/72 96 Intake and Output 04/14/17 04/14/17 04/15/17 15:00 23:00 07:00 Intake Total 300 ml 800 ml 500 ml Output Total 3000 ml Balance -2700 ml 800 ml 500 ml Exam Constitutional: No distress ENMT: mucosa pink and moist Respiratory: No labored breathing Cardiovascular: regular rate and rhythm, No edema Gastrointestinal: nl liver, spleen, soft Neurological: No lethargic Results Result Diagram: 04/15/17 0556 04/15/17 0556 Results 24 hrs Laboratory Tests Test 04/15/17 05:56 White Blood Count 10.6 Red Blood Count 3.40 L Hemoglobin 9.1 L Hematocrit 28.8 L Mean Corpuscular Volume 84.7 Mean Corpuscular Hemoglobin 26.8 L Mean Corpuscular Hemoglobin Concent 31.6 L Red Cell Distribution Width 19.2 H Platelet Count 215 Mean Platelet Volume 9.4 Neutrophils % 80.9 H Lymphocytes % 4.7 L Monocytes % 11.4 H Eosinophils % 1.6 Basophils % 0.6 Nucleated Red Blood Cells % 0.0 Neutrophils # 8.6 H Lymphocytes # 0.5 L Monocytes # 1.2 H Eosinophils # 0.2 Basophils # 0.1 Nucleated Red Blood Cells # 0.0 Sodium Level 138 Potassium Level 4.8 Chloride Level 100 Carbon Dioxide Level 26 Anion Gap 17 H Blood Urea Nitrogen 48 H Creatinine 6.74 H Glucose Level 91 Calcium Level 9.5 Medications Medications Current Medications Dextrose/Sodium Chloride (D5-1/2ns) 1,000 ml @ 50 mls/hr Q20H IV Last administered on 04/15/17 11:35; Admin Dose 50 MLS/HR; Start 04/08/17 at 23:30 Ondansetron HCl (Zofran Inj) 4 mg Q6H PRN IV NAUSEA AND/OR VOMITING; Start 04/08/17 at 23:30 Vancomycin HCl (Vancomycin Oral Syringe) 250 mg Q6 PO Last administered on 17:02; Admin Dose 250 MG; Start 04/09/17 at 00:00 Acetaminophen (Tylenol Tab) 650 mg Q4H PRN PO PAIN AND OR ELEVATED TEMP; Start 04/08/17 at 23:30 Acetaminophen/ Hydrocodone Bitart ([place] (5/325)) 1 tab Q4H PRN PO PAIN LEVEL 4 -6 Last administered on 04/15/17 05:29; Admin Dose 1 TAB; Start 04/08/17 at 23 :30 Amlodipine Besylate (Norvasc) 5 mg BID PO Last administered on 04/15/17 08:08 ; Admin Dose 5 MG; Start 04/09/17 at 09:00 Atorvastatin Calcium (Lipitor) 40 mg HS PO Last administered on 04/14/17 20: 51; Admin Dose 40 MG; Start 04/09/17 at 21:00 Cinacalcet (Sensipar) 30 mg BID PO Last administered on 04/15/17 08:07; Admin Dose 30 MG; Start 04/09/17 at 09:00 Clopidogrel Bisulfate (plaVIX) 75 mg DAILY PO Last administered on 04/15/17 08:08; Admin Dose 75 MG; Start 04/09/17 at 09:00 Diphenhydramine HCl (Benadryl) 25 mg Q6H PRN PO ITCHING; Start 04/08/17 at 23: 30 Carvedilol (Coreg) 3.125 mg BID PO Last administered on 04/15/17 08:08; Admin Dose 3.125 MG; Start 04/09/17 at 09:00 Aspirin (Aspirin) 81 mg DAILY PO Last administered on 04/15/17 08:08; Admin Dose 81 MG; Start 04/11/17 at 09:00 Morphine Sulfate (morphine) 2 mg Q4H PRN IV SEVERE PAIN LEVEL 7-10 Last administered on 04/15/17 17:01; Admin Dose 2 MG; Start 04/10/17 at 15:30 Lactobacillus Acidophilus (Florajen3 Capsule) 1 each BID PO Last administered on 04/15/17 08:08; Admin Dose 1 EACH; Start 04/11/17 at 14:30 Metronidazole (Flagyl) 500 mg Q8 PO Last administered on 04/15/17 11:34; Admin Dose 500 MG; Start 04/14/17 at 14:00 PIPER FELIX MD Apr 15, 2017 20:55
[2017-04-15] MEDS: ATORVASTATIN 40 MG TAB PO SCH (21:09)
[2017-04-16] VITALS (15 sets, daily range): BP systolic 136–177; BP diastolic 62–77; PULSE 69–73; RESP 16–20
[2017-04-16] MEDS: morphine 2 MG INJ IV PRN ×5 (01:38→22:40)
[2017-04-16 06:44] LABS: ABNORMAL IP MESSAGE 1; BASOPHIL # 0.1 10^3/ul (0.0-0.1); BASOPHILS % 0.6 % (0.0-2.0); EOSINOPHILS # 0.2 10^3/ul (0.0-0.5); EOSINOPHILS % 1.8 % (0.0-7.0); HEMOGLOBIN 9.8 g/dl (14.0-18.0); LYMPHOCYTES # 0.5 10^3/ul (0.8-2.9); LYMPHOCYTES % 4.2 % (15.0-51.0); MEAN CORPUSCULAR HEMOGLOBIN 26.6 pg (29.0-33.0); MEAN CORPUSCULAR HGB CONC 31.6 g/dl (32.0-37.0); MEAN CORPUSCULAR VOLUME 84.2 fl (82.0-101.0); MEAN PLATELET VOLUME 9.4 fl (7.4-10.4); MONOCYTE # 1.2 10^3/ul (0.3-0.9); MONOCYTES % 10.5 % (0.0-11.0); NEUTROPHIL # 9.5 10^3/ul (1.6-7.5); NEUTROPHILS % 82.3 % (39.0-77.0); PLATELET COUNT 223 10^3/UL (140-415); POSITIVE DIFF @See below; RED BLOOD COUNT 3.68 10^6/ul (4.70-6.10); RED CELL DISTRIBUTION WIDTH 19.4 % (11.5-14.5); WHITE BLOOD COUNT 11.6 10^3/ul (4.8-10.8)
[2017-04-16] MEDS: metroNIDAZOLE 500 MG TAB PO SCH ×3 (07:05→20:53)
[2017-04-16] MEDS: VANCOMYCIN HCL 250 MG/5ML POSYG PO SCH ×5 (07:05→23:18)
[2017-04-16 07:07] LABS: CALCIUM 10.1 mg/dl (8.4-10.2); CREATININE 8.49 mg/dl (0.61-1.24); POTASSIUM 5.3 mmol/L (3.5-5.1)
--- NOTE | 2017-04-16 09:21 | CONS ---
Date/Time of Note Date/Time of Note DATE: 04/16/17 TIME: 09:18 Consult Date/Type/Reason Admit Date/Time Apr 08, 2017 at 21:31 Initial Consult Date 04/10/17 Type of Consultation: cv Ordering Provider: POLY THRASHER MD Subjective Cardiology follow-up progress note (on behalf of Dr.Leo Barr) S: Discussed with staff and rhythm strip was reviewed. Patient remains in sinus rhythm. pt denies any chest pain or pressure to me at this point. He still has foot pain and complains of severe toe pain he denies PND orthopnea O: General: no acute distress HEENT: NC/AT. eyes are blind NECK: NO JVD. no stridor. CV: RRR. systolic murmur; no gallop or rubs. PULM: +_ rhonchi. GI: SOFT, NT, ND, no rebound or guarding Extremity: + necrotic/GANGRENE toes/foot neuro: awake and alert, Psych: calm and pleasant rectal: deferred ECG: Normal sinus rhythm. ST-T wave abnormality consistent with inferolateral ischemia Objective Vital Signs Date Time Temp Pulse Resp B/P Pulse Ox O2 Delivery O2 Flow Rate FiO2 04/16/17 07:58 97.7 70 17 153/72 99 Intake and Output 04/15/17 04/15/17 04/16/17 15:00 23:00 07:00 Intake Total 1480 ml 200 ml Balance 1480 ml 200 ml Results/Medications Result Diagram: 04/16/17 0605 04/16/17 0605 Results 24 hrs Laboratory Tests Test 04/16/17 06:05 White Blood Count 11.6 H Red Blood Count 3.68 L Hemoglobin 9.8 L Hematocrit 31.0 L Mean Corpuscular Volume 84.2 Mean Corpuscular Hemoglobin 26.6 L Mean Corpuscular Hemoglobin Concent 31.6 L Red Cell Distribution Width 19.4 H Platelet Count 223 Mean Platelet Volume 9.4 Neutrophils % 82.3 H Lymphocytes % 4.2 L Monocytes % 10.5 Eosinophils % 1.8 Basophils % 0.6 Nucleated Red Blood Cells % 0.0 Neutrophils # 9.5 H Lymphocytes # 0.5 L Monocytes # 1.2 H Eosinophils # 0.2 Basophils # 0.1 Nucleated Red Blood Cells # 0.0 Sodium Level 139 Potassium Level 5.3 H Chloride Level 99 Carbon Dioxide Level 24 Anion Gap 21 H Blood Urea Nitrogen 70 H Creatinine 8.49 H Glucose Level 82 Calcium Level 10.1 Medications Current Medications Dextrose/Sodium Chloride (D5-1/2ns) 1,000 ml @ 50 mls/hr Q20H IV Last administered on 04/15/17 11:35; Admin Dose 50 MLS/HR; Start 04/08/17 at 23:30 Ondansetron HCl (Zofran Inj) 4 mg Q6H PRN IV NAUSEA AND/OR VOMITING; Start 04/08/17 at 23:30 Vancomycin HCl (Vancomycin Oral Syringe) 250 mg Q6 PO Last administered on 07:05; Admin Dose 250 MG; Start 04/09/17 at 00:00 Acetaminophen (Tylenol Tab) 650 mg Q4H PRN PO PAIN AND OR ELEVATED TEMP; Start 04/08/17 at 23:30 Acetaminophen/ Hydrocodone Bitart ([place] (5/325)) 1 tab Q4H PRN PO PAIN LEVEL 4 -6 Last administered on 04/15/17 05:29; Admin Dose 1 TAB; Start 04/08/17 at 23 :30 Amlodipine Besylate (Norvasc) 5 mg BID PO Last administered on 04/15/17 21:10 ; Admin Dose 5 MG; Start 04/09/17 at 09:00 Atorvastatin Calcium (Lipitor) 40 mg HS PO Last administered on 04/15/17 21: 09; Admin Dose 40 MG; Start 04/09/17 at 21:00 Cinacalcet (Sensipar) 30 mg BID PO Last administered on 04/15/17 21:10; Admin Dose 30 MG; Start 04/09/17 at 09:00 Clopidogrel Bisulfate (plaVIX) 75 mg DAILY PO Last administered on 04/15/17 08:08; Admin Dose 75 MG; Start 04/09/17 at 09:00 Diphenhydramine HCl (Benadryl) 25 mg Q6H PRN PO ITCHING; Start 04/08/17 at 23: 30 Carvedilol (Coreg) 3.125 mg BID PO Last administered on 04/15/17 21:09; Admin Dose 3.125 MG; Start 04/09/17 at 09:00 Aspirin (Aspirin) 81 mg DAILY PO Last administered on 04/15/17 08:08; Admin Dose 81 MG; Start 04/11/17 at 09:00 Morphine Sulfate (morphine) 2 mg Q4H PRN IV SEVERE PAIN LEVEL 7-10 Last administered on 04/16/17 01:38; Admin Dose 2 MG; Start 04/10/17 at 15:30 Lactobacillus Acidophilus (Florajen3 Capsule) 1 each BID PO Last administered on 04/15/17 21:10; Admin Dose 1 EACH; Start 04/11/17 at 14:30 Metronidazole (Flagyl) 500 mg Q8 PO Last administered on 04/16/17 07:05; Admin Dose 500 MG; Start 04/14/17 at 14:00 Epoetin Jorge Luis (Epogen (Esrd)) 4,000 units MoWeFr@17 IV ; Start 04/16/17 at 17:00 Assessment/Plan Chief Complaint/Hosp Course 1. Non-ST elevation myocardial infarction 2. End-stage renal disease on hemodialysis 3. Severe peripheral vascular disease 4. Gangrene of toe/foot 5. Diabetes 6. Dyslipidemia 7. Congestive heart failure: EF 40% 8. Severe and worsening anemia 9. Known severe coronary artery disease including calcified left main disease 10. Ischemic cardiomyopathy Recommendations: I will CONT aspirin to 81 mg. I will add ARB to his regimen. Potassium management through the dialysis will be done. We cont to manage the patient with continued and aggressive medical therapy as much as possible. Antibiotic will be managed as per internal medicine IDs recommendations. I will try to review the old films which was done not too long ago at [facility] to review his coronary angiogram. Based on information I have so far he does not appear to be amenable to any intervention safely or bypass surgery. Consider CT surgery consultation but I highly doubt the patient would be a reasonable candidate for coronary bypass graft Hemodialysis as per renal. Thank you for his referral. SENTHIL FERRELL MD [facility] Problems: SENTHIL FERRELL MD Apr 16, 2017 09:21
[2017-04-16] MEDS: CALCIUM ACETATE 667 MG CAP PO SCH ×3 (09:31→17:44)
[2017-04-16] MEDS: CINACALCET 30 MG TAB PO SCH ×2 (09:31→20:53)
[2017-04-16] MEDS: L ACIDOPHIL/B LACTIS/B LONGUM CAPSULE PO SCH ×2 (09:31→21:03)
[2017-04-16] MEDS: SEVELAMER 800 MG TAB PO SCH ×3 (09:32→17:43)
[2017-04-16] MEDS: AMLODIPINE 5 MG TAB PO SCH ×2 (09:32→20:57)
[2017-04-16] MEDS: ASPIRIN 81 MG TAB PO SCH (09:32)
[2017-04-16] MEDS: BALSAM PERU/CASTOR OIL 60 GM TUBE TOP SCH ×2 (09:33→20:53)
[2017-04-16] MEDS: CLOPIDOGREL 75 MG TAB PO SCH (09:33)
[2017-04-16] MEDS: LOSARTAN 25 MG TAB PO SCH ×2 (10:41→20:54)
[2017-04-16] MEDS: DEXTROSE 5%-0.45% NACL 1,000 ML IV SCH ×2 (11:30→23:17)
--- NOTE | 2017-04-16 11:53 | PN ---
Date/Time of Note Date/Time of Note DATE: 04/16/17 TIME: 11:52 Assessment/Plan VTE Prophylaxis VTE Prophylaxis Intervention: SCD's Lines/Catheters IV [facility]from [facility] [place] Urinary Cath still in place: No Assessment/Plan Chief Complaint/Hosp Course Patient with hyperkalemia, status post hemodialysis today. Denies any shortness of breath denies chest pain. Assessment/Plan -C. difficile colitis, continue vancomycin p.o. Dr. Tobias is following in infection disease consultation. -Elevated troponin, allowing in cardiology consultation. -End-stage renal disease hemodialysis dependent. Dr. Wallace is following in nephrology consultation. Continue hemodialysis. -Hyperkalemia - Possible PNA, continue abx. Dr Tobias is asked to see pt in ID consultation. - Left foot gangrenous wounds - Severe peripheral vascular disease with severe infrapopliteal disease and pedal disease. - Hypertension. - CAD - Permanent Pacemaker. - Legally blind - Anemia of chronic disease. Further recommendations based on clinical course. Plan of care discussed with Dr. French Further recommendations based on clinical course. Plan of care discussed with Dr. French. Problems: Exam/Review of Systems Vital Signs Vitals Vital Signs Date Time Temp Pulse Resp B/P Pulse Ox O2 Delivery O2 Flow Rate FiO2 04/16/17 11:33 98.3 69 16 142/69 94 Intake and Output 04/15/17 04/15/17 04/16/17 14:59 22:59 06:59 Intake Total 1480 ml 200 ml Balance 1480 ml 200 ml Exam Constitutional: alert, oriented Eyes: other (Blind) Respiratory: diminished breath sounds Cardiovascular: other (Paced rhythm) Gastrointestinal: soft, tender Musculoskeletal: nl extremities to inspection (Right heel gangrenous wound, left foot gangrene) Extremities: normal pulses, other (Bilateral feet gangrene) Results Result Diagram: 04/16/1760404/16/17604 Results 24 hrs Laboratory Tests Test 04/16/17 06:05 White Blood Count 11.6 H Red Blood Count 3.68 L Hemoglobin 9.8 L Hematocrit 31.0 L Mean Corpuscular Volume 84.2 Mean Corpuscular Hemoglobin 26.6 L Mean Corpuscular Hemoglobin Concent 31.6 L Red Cell Distribution Width 19.4 H Platelet Count 223 Mean Platelet Volume 9.4 Neutrophils % 82.3 H Lymphocytes % 4.2 L Monocytes % 10.5 Eosinophils % 1.8 Basophils % 0.6 Nucleated Red Blood Cells % 0.0 Neutrophils # 9.5 H Lymphocytes # 0.5 L Monocytes # 1.2 H Eosinophils # 0.2 Basophils # 0.1 Nucleated Red Blood Cells # 0.0 Sodium Level 139 Potassium Level 5.3 H Chloride Level 99 Carbon Dioxide Level 24 Anion Gap 21 H Blood Urea Nitrogen 70 H Creatinine 8.49 H Glucose Level 82 Calcium Level 10.1 Medications Medications Current Medications Dextrose/Sodium Chloride (D5-1/2ns) 1,000 ml @ 50 mls/hr Q20H IV Last administered on 04/15/17 11:35; Admin Dose 50 MLS/HR; Start 04/08/17 at 23:30 Ondansetron HCl (Zofran Inj) 4 mg Q6H PRN IV NAUSEA AND/OR VOMITING; Start 04/08/17 at 23:30 Vancomycin HCl (Vancomycin Oral Syringe) 250 mg Q6 PO Last administered on 07:05; Admin Dose 250 MG; Start 04/09/17 at 00:00 Acetaminophen (Tylenol Tab) 650 mg Q4H PRN PO PAIN AND OR ELEVATED TEMP; Start 04/08/17 at 23:30 Acetaminophen/ Hydrocodone Bitart ([place] (5/325)) 1 tab Q4H PRN PO PAIN LEVEL 4 -6 Last administered on 04/15/17 05:29; Admin Dose 1 TAB; Start 04/08/17 at 23 :30 Amlodipine Besylate (Norvasc) 5 mg BID PO Last administered on 04/16/17 09:32 ; Admin Dose 5 MG; Start 04/09/17 at 09:00 Atorvastatin Calcium (Lipitor) 40 mg HS PO Last administered on 04/15/17 21: 09; Admin Dose 40 MG; Start 04/09/17 at 21:00 Cinacalcet (Sensipar) 30 mg BID PO Last administered on 04/16/17 09:31; Admin Dose 30 MG; Start 04/09/17 at 09:00 Clopidogrel Bisulfate (plaVIX) 75 mg DAILY PO Last administered on 04/16/17 09:33; Admin Dose 75 MG; Start 04/09/17 at 09:00 Diphenhydramine HCl (Benadryl) 25 mg Q6H PRN PO ITCHING; Start 04/08/17 at 23: 30 Carvedilol (Coreg) 3.125 mg BID PO Last administered on 04/16/17 09:33; Admin Dose 3.125 MG; Start 04/09/17 at 09:00 Aspirin (Aspirin) 81 mg DAILY PO Last administered on 04/16/17 09:32; Admin Dose 81 MG; Start 04/11/17 at 09:00 Morphine Sulfate (morphine) 2 mg Q4H PRN IV SEVERE PAIN LEVEL 7-10 Last administered on 04/16/17 09:26; Admin Dose 2 MG; Start 04/10/17 at 15:30 Lactobacillus Acidophilus (Florajen3 Capsule) 1 each BID PO Last administered on 04/16/17 09:31; Admin Dose 1 EACH; Start 04/11/17 at 14:30 Metronidazole (Flagyl) 500 mg Q8 PO Last administered on 04/16/17 07:05; Admin Dose 500 MG; Start 04/14/17 at 14:00 Epoetin Jorge Luis (Epogen (Esrd)) 4,000 units MoWeFr@17 IV ; Start 04/16/17 at 17:00 Losartan Potassium (Cozaar) 25 mg BID PO Last administered on 04/16/17 10:41 ; Admin Dose 25 MG; Start 04/16/17 at 09:30 VIV KING Apr 16, 2017 11:53
--- NOTE | 2017-04-16 17:29 | CONS ---
Date/Time of Note Date/Time of Note DATE: 04/16/17 TIME: 17:28 Assessment/Plan Assessment/Plan Additional Assessment/Plan 61 yo male with 1)Abd Pain and Diarrhea, C. difficile colitis 2)Elevated troponin, CAD 3)End-stage renal disease hemodialysis dependent 4)Hyperkalemia 5)Left foot gangrenous wounds 6)Severe peripheral vascular disease with severe infrapopliteal disease and pedal disease. 7)Hypertension. 8)CAD 9)Permanent Pacemaker. 10)Legally blind 11)Anemia of chronic disease 12)Possible Pna vs Edema S/p HD MWF Epogen with HD thank you for the opportunity to participate in the care of Mr Thibodeaux. Consultation Date/Type/Reason Admit Date/Time Apr 08, 2017 at 21:31 Initial Consult Date 04/10/17 Type of Consultation: cv Referring Provider: POLY THRASHER MD 24 HR Interval Summary Free Text/Dictation S/p HD, no complication Constitutional: No requiring O2 Exam/Review of Systems Vital Signs Vitals Vital Signs Date Time Temp Pulse Resp B/P Pulse Ox O2 Delivery O2 Flow Rate FiO2 04/16/17 16:15 97.6 70 16 136/72 90 Intake and Output 04/15/17 04/15/17 04/16/17 15:00 23:00 07:00 Intake Total 1480 ml 200 ml Balance 1480 ml 200 ml Exam Constitutional: No distress ENMT: mucosa pink and moist Respiratory: No labored breathing Cardiovascular: No edema Gastrointestinal: soft Neurological: No lethargic Skin: No diaphoresis Results Result Diagram: 04/16/17 0605 04/16/17 0605 Results 24 hrs Laboratory Tests Test 04/16/17 06:05 White Blood Count 11.6 H Red Blood Count 3.68 L Hemoglobin 9.8 L Hematocrit 31.0 L Mean Corpuscular Volume 84.2 Mean Corpuscular Hemoglobin 26.6 L Mean Corpuscular Hemoglobin Concent 31.6 L Red Cell Distribution Width 19.4 H Platelet Count 223 Mean Platelet Volume 9.4 Neutrophils % 82.3 H Lymphocytes % 4.2 L Monocytes % 10.5 Eosinophils % 1.8 Basophils % 0.6 Nucleated Red Blood Cells % 0.0 Neutrophils # 9.5 H Lymphocytes # 0.5 L Monocytes # 1.2 H Eosinophils # 0.2 Basophils # 0.1 Nucleated Red Blood Cells # 0.0 Sodium Level 139 Potassium Level 5.3 H Chloride Level 99 Carbon Dioxide Level 24 Anion Gap 21 H Blood Urea Nitrogen 70 H Creatinine 8.49 H Glucose Level 82 Calcium Level 10.1 Medications Medications Current Medications Dextrose/Sodium Chloride (D5-1/2ns) 1,000 ml @ 50 mls/hr Q20H IV Last administered on 04/15/17 11:35; Admin Dose 50 MLS/HR; Start 04/08/17 at 23:30 Ondansetron HCl (Zofran Inj) 4 mg Q6H PRN IV NAUSEA AND/OR VOMITING; Start 04/08/17 at 23:30 Vancomycin HCl (Vancomycin Oral Syringe) 250 mg Q6 PO Last administered on 13:48; Admin Dose 250 MG; Start 04/09/17 at 00:00 Acetaminophen (Tylenol Tab) 650 mg Q4H PRN PO PAIN AND OR ELEVATED TEMP; Start 04/08/17 at 23:30 Acetaminophen/ Hydrocodone Bitart ([place] (5/325)) 1 tab Q4H PRN PO PAIN LEVEL 4 -6 Last administered on 04/15/17 05:29; Admin Dose 1 TAB; Start 04/08/17 at 23 :30 Amlodipine Besylate (Norvasc) 5 mg BID PO Last administered on 04/16/17 09:32 ; Admin Dose 5 MG; Start 04/09/17 at 09:00 Atorvastatin Calcium (Lipitor) 40 mg HS PO Last administered on 04/15/17 21: 09; Admin Dose 40 MG; Start 04/09/17 at 21:00 Cinacalcet (Sensipar) 30 mg BID PO Last administered on 04/16/17 09:31; Admin Dose 30 MG; Start 04/09/17 at 09:00 Clopidogrel Bisulfate (plaVIX) 75 mg DAILY PO Last administered on 04/16/17 09:33; Admin Dose 75 MG; Start 04/09/17 at 09:00 Diphenhydramine HCl (Benadryl) 25 mg Q6H PRN PO ITCHING; Start 04/08/17 at 23: 30 Carvedilol (Coreg) 3.125 mg BID PO Last administered on 04/16/17 09:33; Admin Dose 3.125 MG; Start 04/09/17 at 09:00 Aspirin (Aspirin) 81 mg DAILY PO Last administered on 04/16/17 09:32; Admin Dose 81 MG; Start 04/11/17 at 09:00 Morphine Sulfate (morphine) 2 mg Q4H PRN IV SEVERE PAIN LEVEL 7-10 Last administered on 04/16/17 13:45; Admin Dose 2 MG; Start 04/10/17 at 15:30 Lactobacillus Acidophilus (Florajen3 Capsule) 1 each BID PO Last administered on 04/16/17 09:31; Admin Dose 1 EACH; Start 04/11/17 at 14:30 Metronidazole (Flagyl) 500 mg Q8 PO Last administered on 04/16/17 13:48; Admin Dose 500 MG; Start 04/14/17 at 14:00 Epoetin Jorge Luis (Epogen (Esrd)) 4,000 units MoWeFr@17 IV ; Start 04/16/17 at 17:00 Losartan Potassium (Cozaar) 25 mg BID PO Last administered on 04/16/17 10:41 ; Admin Dose 25 MG; Start 04/16/17 at 09:30 PIPER FELIX MD Apr 16, 2017 17:29
[2017-04-16] MEDS: EPOETIN 4000 UNITS/1 ML INJ (ESRD) IV SCH (17:46)
--- NOTE | 2017-04-16 19:06 | CONS ---
Date/Time of Note Date/Time of Note DATE: 04/16/17 TIME: 19:01 Assessment/Plan Assessment/Plan Chief Complaint/Hosp Course DATE OF ADMISSION: 04/12/2017 (late Entry note) Dear Doctors: Mr. Thibodeaux is a 61-year-old gentleman known to our vascular surgery service group who is legally blind and has been evaluated over this past year. The patient was admitted back in , which he had presented with left lower extremity gangrene involving his fifth toe, his heel, and his plantar aspect of his foot. At that time, patient underwent endovascular intervention of his left lower extremity and a followup angiogram which demonstrated patient having inline flow from his common femoral artery all the way down to his dorsalis pedis. However, the patient has significant pedal disease that would not be amenable for vascular intervention and limb salvage was limited upon our evaluation at that time. It seems that the patient also had developed a new area of heel gangrene on his right lower extremity and which he also has atherosclerotic disease and required further intervention The patient presented to [facility] now with new signs of abdominal pain and being evaluated. At the moment, the patient is resting comfortably in his bed. Denies shortness of breath, nausea, vomiting, fever or chills. Denies chest pain at the moment and he denies lower extremity pain. The patient does have a fistula via his left upper extremity in which he has been tolerating his dialysis sessions well. REVIEW OF SYSTEMS: A 14-point review performed and negative except what is mentioned in the HPI. PAST MEDICAL HISTORY: Entails end-stage renal disease, coronary artery disease , anemia of chronic disease, diabetes, bilateral lower extremity atherosclerosis with gangrene, legally blind, hypertension and left diabetic foot infections. PAST SURGICAL HISTORY: Appendectomy, left upper extremity AV fistula creation, left lower extremity endovascular intervention. FAMILY HISTORY: Positive for hypertension and diabetes. SOCIAL HISTORY: Previous Ex-smoker. Denies current tobacco, alcohol or illicit drug use. PHYSICAL EXAMINATION: GENERAL: Alert and oriented x3, no apparent distress. HEENT: Legally blind. Normocephalic, atraumatic. Mucosa moist. Poor dentition. NECK: Supple. No carotid bruit. PULMONARY: Clear to auscultation bilaterally. No crackles. CARDIOVASCULAR: S1, S2 present, no murmur. S1, S2 present. No murmurs. ABDOMEN: Soft, nontender, nondistended. Bowel sounds positive. EXTREMITIES: Right lower extremity palpable femoral pulse, nonpalpable pedal pulse. Motor, sensory intact. Cap refill 3 to 4 seconds. No ulcers. He still has gangrene of his right heel, which is small in area, about few millimeters. Left lower extremity, palpable femoral pulse, nonpalpable pedal pulse. Motor and sensory intact. Cap refill 4 seconds. Dependent rubor on his forefoot and gangrene of his fourth and fifth toes that is dry. He also has tissue loss/ gangrene on his plantar aspect of the foot and on the heel. ASSESSMENT AND PLAN: 1. Bilateral lower extremity atherosclerosis with gangrene: It seems the patient had developed worsening of his left lower extremity gangrene despite endovascular intervention and currently stable. Upon his previous noninvasive vascular studies, he does have infrainguinal disease; however, based on our last angiogram he does have inline flow from his common femoral artery all the way to his dorsalis pedis. Unfortunately, the patient has severe pedal disease that will not be amenable for any surgical intervention as he does have extensive wound gangrene and given his current medical issues, I would not recommend to pursue any further intervention. The patient and his daughter have been informed of him likely requiring a major amputation such as below knee amputation. However, there is no urgency of the matter as the patient does not show signs of severe infection, intolerable rest pain, or bacteremia. Recommend continue supportive care 2. Right lower extremity atherosclerosis with gangrene. The patient has developed new heel gangrene for which he will likely require intervention as well. At the moment, the patient will need to recover from his abdominal issue and we will plan to follow his wound care closely with our podiatry colleagues and intervene when needed. 3. End-stage renal disease. The patient has been having no issues regarding his left upper extremity fistula. He did have areas of high velocities that were identified at the last ultrasound for which we will plan for an eventual fistulogram once he has recovered from his cardiac issues. We will optimize vascular status (BP meds, diet, nutrition, exercise, sugar control, antiplatelets). Problems: Consultation Date/Type/Reason Admit Date/Time Apr 08, 2017 at 21:31 Past Medical History Medical History: diabetes, hypertension, renal disease Past Surgical History Past Surgical Hx: appendectomy, other (AVF) Social History Alcohol Use: none Smoking Status: Former smoker Drug Use: none Exam/Review of Systems Vital Signs Vitals Vital Signs Date Time Temp Pulse Resp B/P Pulse Ox O2 Delivery O2 Flow Rate FiO2 04/16/17 16:15 97.6 70 16 136/72 90 Intake and Output 04/15/17 04/15/17 04/16/17 15:00 23:00 07:00 Intake Total 1480 ml 200 ml Balance 1480 ml 200 ml Results Result Diagram: 04/16/17 0605 04/16/17 0605 Results 24 hrs Laboratory Tests Test 04/16/17 06:05 White Blood Count 11.6 H Red Blood Count 3.68 L Hemoglobin 9.8 L Hematocrit 31.0 L Mean Corpuscular Volume 84.2 Mean Corpuscular Hemoglobin 26.6 L Mean Corpuscular Hemoglobin Concent 31.6 L Red Cell Distribution Width 19.4 H Platelet Count 223 Mean Platelet Volume 9.4 Neutrophils % 82.3 H Lymphocytes % 4.2 L Monocytes % 10.5 Eosinophils % 1.8 Basophils % 0.6 Nucleated Red Blood Cells % 0.0 Neutrophils # 9.5 H Lymphocytes # 0.5 L Monocytes # 1.2 H Eosinophils # 0.2 Basophils # 0.1 Nucleated Red Blood Cells # 0.0 Sodium Level 139 Potassium Level 5.3 H Chloride Level 99 Carbon Dioxide Level 24 Anion Gap 21 H Blood Urea Nitrogen 70 H Creatinine 8.49 H Glucose Level 82 Calcium Level 10.1 Medications Medications Current Medications Dextrose/Sodium Chloride (D5-1/2ns) 1,000 ml @ 50 mls/hr Q20H IV Last administered on 04/15/17 11:35; Admin Dose 50 MLS/HR; Start 04/08/17 at 23:30 Ondansetron HCl (Zofran Inj) 4 mg Q6H PRN IV NAUSEA AND/OR VOMITING; Start 04/08/17 at 23:30 Vancomycin HCl (Vancomycin Oral Syringe) 250 mg Q6 PO Last administered on 13:48; Admin Dose 250 MG; Start 04/09/17 at 00:00 Acetaminophen (Tylenol Tab) 650 mg Q4H PRN PO PAIN AND OR ELEVATED TEMP; Start 04/08/17 at 23:30 Acetaminophen/ Hydrocodone Bitart ([place] (5/325)) 1 tab Q4H PRN PO PAIN LEVEL 4 -6 Last administered on 04/15/17 05:29; Admin Dose 1 TAB; Start 04/08/17 at 23 :30 Amlodipine Besylate (Norvasc) 5 mg BID PO Last administered on 04/16/17 09:32 ; Admin Dose 5 MG; Start 04/09/17 at 09:00 Atorvastatin Calcium (Lipitor) 40 mg HS PO Last administered on 04/15/17 21: 09; Admin Dose 40 MG; Start 04/09/17 at 21:00 Cinacalcet (Sensipar) 30 mg BID PO Last administered on 04/16/17 09:31; Admin Dose 30 MG; Start 04/09/17 at 09:00 Clopidogrel Bisulfate (plaVIX) 75 mg DAILY PO Last administered on 04/16/17 09:33; Admin Dose 75 MG; Start 04/09/17 at 09:00 Diphenhydramine HCl (Benadryl) 25 mg Q6H PRN PO ITCHING; Start 04/08/17 at 23: 30 Carvedilol (Coreg) 3.125 mg BID PO Last administered on 04/16/17 09:33; Admin Dose 3.125 MG; Start 04/09/17 at 09:00 Aspirin (Aspirin) 81 mg DAILY PO Last administered on 04/16/17 09:32; Admin Dose 81 MG; Start 04/11/17 at 09:00 Morphine Sulfate (morphine) 2 mg Q4H PRN IV SEVERE PAIN LEVEL 7-10 Last administered on 04/16/17 18:22; Admin Dose 2 MG; Start 04/10/17 at 15:30 Lactobacillus Acidophilus (Florajen3 Capsule) 1 each BID PO Last administered on 04/16/17 09:31; Admin Dose 1 EACH; Start 04/11/17 at 14:30 Metronidazole (Flagyl) 500 mg Q8 PO Last administered on 04/16/17 13:48; Admin Dose 500 MG; Start 04/14/17 at 14:00 Epoetin Jorge Luis (Epogen (Esrd)) 4,000 units MoWeFr@17 IV Last administered on 17:46; Admin Dose 4,000 UNITS; Start 04/16/17 at 17:00 Losartan Potassium (Cozaar) 25 mg BID PO Last administered on 04/16/17t 10:41 ; Admin Dose 25 MG; Start 04/16/17 at 09:30 AMOS KEYS MD Apr 16, 2017 19:06
--- NOTE | 2017-04-16 19:42 | CONS ---
Date/Time of Note Date/Time of Note DATE: 04/16/17 TIME: 19:40 Assessment/Plan Assessment/Plan Chief Complaint/Hosp Course SUBJECTIVE: No acute events per report. Patient is awake, no fevers, no diarrhea, looks comfortable MICROBIOLOGY: Blood cultures negative. INDWELLINGS: The patient has AV fistula. ANTIMICROBIALS: Vancomycin PO, Flagyl PHYSICAL EXAMINATION: GENERAL: This is a chronically ill-appearing, fragile, elderly man who is awake , in no distress. HEENT: Head atraumatic, normocephalic. Sclerae anicteric. Buccal mucosa dry. NECK: Supple. CHEST: Rise symmetrical. Breath sounds diminished to bases. HEART: S1, S2. ABDOMEN: Soft, bowel tones present. EXTREMITIES: Left foot gangrene. ASSESSMENT: 1. Systemic inflammatory response syndrome. 2. Clostridium difficile colitis. 3. 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 4. End-stage renal disease. 5. Anemia. 6. Severe peripheral arterial and vascular disease. 7. History of permanent pacemaker placement. PLAN: Remains unchanged, continue Flagyl and oral vancomycin, pain management, vascular recommendations [facility] staff Problems: Consultation Date/Type/Reason Admit Date/Time Apr 08, 2017 at 21:31 Initial Consult Date 04/10/17 Type of Consultation: id Referring Provider: POLY THRASHER MD Exam/Review of Systems Vital Signs Vitals Vital Signs Date Time Temp Pulse Resp B/P Pulse Ox O2 Delivery O2 Flow Rate FiO2 04/16/17 16:15 97.6 70 16 136/72 90 Intake and Output 04/15/17 04/15/17 04/16/17 15:00 23:00 07:00 Intake Total 1480 ml 200 ml Balance 1480 ml 200 ml Results Result Diagram: 04/16/17 0605 04/16/17 0605 Results 24 hrs Laboratory Tests Test 04/16/17 06:05 White Blood Count 11.6 H Red Blood Count 3.68 L Hemoglobin 9.8 L Hematocrit 31.0 L Mean Corpuscular Volume 84.2 Mean Corpuscular Hemoglobin 26.6 L Mean Corpuscular Hemoglobin Concent 31.6 L Red Cell Distribution Width 19.4 H Platelet Count 223 Mean Platelet Volume 9.4 Neutrophils % 82.3 H Lymphocytes % 4.2 L Monocytes % 10.5 Eosinophils % 1.8 Basophils % 0.6 Nucleated Red Blood Cells % 0.0 Neutrophils # 9.5 H Lymphocytes # 0.5 L Monocytes # 1.2 H Eosinophils # 0.2 Basophils # 0.1 Nucleated Red Blood Cells # 0.0 Sodium Level 139 Potassium Level 5.3 H Chloride Level 99 Carbon Dioxide Level 24 Anion Gap 21 H Blood Urea Nitrogen 70 H Creatinine 8.49 H Glucose Level 82 Calcium Level 10.1 Medications Medications Current Medications Dextrose/Sodium Chloride (D5-1/2ns) 1,000 ml @ 50 mls/hr Q20H IV Last administered on 04/15/17 11:35; Admin Dose 50 MLS/HR; Start 04/08/17 at 23:30 Ondansetron HCl (Zofran Inj) 4 mg Q6H PRN IV NAUSEA AND/OR VOMITING; Start 04/08/17 at 23:30 Vancomycin HCl (Vancomycin Oral Syringe) 250 mg Q6 PO Last administered on 19:18; Admin Dose 250 MG; Start 04/09/17 at 00:00 Acetaminophen (Tylenol Tab) 650 mg Q4H PRN PO PAIN AND OR ELEVATED TEMP; Start 04/08/17 at 23:30 Acetaminophen/ Hydrocodone Bitart ([place] (5/325)) 1 tab Q4H PRN PO PAIN LEVEL 4 -6 Last administered on 04/15/17 05:29; Admin Dose 1 TAB; Start 04/08/17 at 23 :30 Amlodipine Besylate (Norvasc) 5 mg BID PO Last administered on 04/16/17 09:32 ; Admin Dose 5 MG; Start 04/09/17 at 09:00 Atorvastatin Calcium (Lipitor) 40 mg HS PO Last administered on 04/15/17 21: 09; Admin Dose 40 MG; Start 04/09/17 at 21:00 Cinacalcet (Sensipar) 30 mg BID PO Last administered on 04/16/17 09:31; Admin Dose 30 MG; Start 04/09/17 at 09:00 Clopidogrel Bisulfate (plaVIX) 75 mg DAILY PO Last administered on 04/16/17 09:33; Admin Dose 75 MG; Start 04/09/17 at 09:00 Diphenhydramine HCl (Benadryl) 25 mg Q6H PRN PO ITCHING; Start 04/08/17 at 23: 30 Carvedilol (Coreg) 3.125 mg BID PO Last administered on 04/16/17 09:33; Admin Dose 3.125 MG; Start 04/09/17 at 09:00 Aspirin (Aspirin) 81 mg DAILY PO Last administered on 04/16/17 09:32; Admin Dose 81 MG; Start 04/11/17 at 09:00 Morphine Sulfate (morphine) 2 mg Q4H PRN IV SEVERE PAIN LEVEL 7-10 Last administered on 04/16/17 18:22; Admin Dose 2 MG; Start 04/10/17 at 15:30 Lactobacillus Acidophilus (Florajen3 Capsule) 1 each BID PO Last administered on 04/16/17 09:31; Admin Dose 1 EACH; Start 04/11/17 at 14:30 Metronidazole (Flagyl) 500 mg Q8 PO Last administered on 04/16/17 13:48; Admin Dose 500 MG; Start 04/14/17 at 14:00 Epoetin Jorge Luis (Epogen (Esrd)) 4,000 units MoWeFr@17 IV Last administered on 17:46; Admin Dose 4,000 UNITS; Start 04/16/17 at 17:00 Losartan Potassium (Cozaar) 25 mg BID PO Last administered on 04/16/17 10:41 ; Admin Dose 25 MG; Start 04/16/17 at 09:30 SHITAL MCKEON NP Apr 16, 2017 19:42
[2017-04-16] MEDS: ATORVASTATIN 40 MG TAB PO SCH (20:53)
[2017-04-16] MEDS: HYDROCODONE/APAP (5/325) TAB PO PRN (21:03)
[2017-04-17 02:21] VITALS: BP 175/72; RESP 20
[2017-04-17] MEDS: morphine 2 MG INJ IV PRN ×4 (04:04→20:12)
[2017-04-17 06:14] LABS: ABNORMAL IP MESSAGE 1; BASOPHIL # 0.1 10^3/ul (0.0-0.1); BASOPHILS % 0.6 % (0.0-2.0); EOSINOPHILS # 0.3 10^3/ul (0.0-0.5); EOSINOPHILS % 2.7 % (0.0-7.0); HEMATOCRIT 25.2 % (42.0-52.0); HEMOGLOBIN 8.2 g/dl (14.0-18.0); LYMPHOCYTES # 0.5 10^3/ul (0.8-2.9); LYMPHOCYTES % 4.8 % (15.0-51.0); MEAN CORPUSCULAR HEMOGLOBIN 27.2 pg (29.0-33.0); MEAN CORPUSCULAR HGB CONC 32.5 g/dl (32.0-37.0); MEAN CORPUSCULAR VOLUME 83.4 fl (82.0-101.0); MEAN PLATELET VOLUME 9.9 fl (7.4-10.4); MONOCYTE # 1.3 10^3/ul (0.3-0.9); MONOCYTES % 13.4 % (0.0-11.0); NEUTROPHIL # 7.8 10^3/ul (1.6-7.5); NEUTROPHILS % 77.9 % (39.0-77.0); PLATELET COUNT 187 10^3/UL (140-415); POSITIVE DIFF @See below; RED BLOOD COUNT 3.02 10^6/ul (4.70-6.10); RED CELL DISTRIBUTION WIDTH 19.8 % (11.5-14.5)
[2017-04-17] MEDS: metroNIDAZOLE 500 MG TAB PO SCH ×3 (06:27→22:25)
[2017-04-17] MEDS: VANCOMYCIN HCL 250 MG/5ML POSYG PO SCH ×4 (06:28→23:48)
[2017-04-17 06:42] LABS: CALCIUM 8.8 mg/dl (8.4-10.2); CREATININE 6.24 mg/dl (0.61-1.24); POTASSIUM 4.8 mmol/L (3.5-5.1)
[2017-04-17] MEDS: DEXTROSE 5%-0.45% NACL 1,000 ML IV SCH ×2 (07:30→18:21)
[2017-04-17 08:30] VITALS: BP 147/68; RESP 14
[2017-04-17] MEDS: CLOPIDOGREL 75 MG TAB PO SCH (09:28)
[2017-04-17] MEDS: CINACALCET 30 MG TAB PO SCH ×2 (09:28→20:09)
[2017-04-17] MEDS: SEVELAMER 800 MG TAB PO SCH ×3 (09:28→18:19)
[2017-04-17] MEDS: ASPIRIN 81 MG TAB PO SCH (09:28)
[2017-04-17] MEDS: CALCIUM ACETATE 667 MG CAP PO SCH ×3 (09:28→18:19)
[2017-04-17] MEDS: L ACIDOPHIL/B LACTIS/B LONGUM CAPSULE PO SCH ×2 (09:29→20:09)
[2017-04-17] MEDS: AMLODIPINE 5 MG TAB PO SCH ×2 (09:29→20:10)
[2017-04-17] MEDS: LOSARTAN 25 MG TAB PO SCH ×2 (09:29→20:10)
[2017-04-17] MEDS: BALSAM PERU/CASTOR OIL 60 GM TUBE TOP SCH ×2 (09:34→20:11)
--- NOTE | 2017-04-17 11:16 | CONS ---
Date/Time of Note Date/Time of Note DATE: 04/17/17 TIME: 11:15 Consult Date/Type/Reason Admit Date/Time Apr 08, 2017 at 21:31 Initial Consult Date 04/10/17 Type of Consultation: card Ordering Provider: POLY THRASHER MD Subjective Cardiology follow-up progress note (on behalf of Dr.Leo Barr) S: Discussed with staff pt is off of tele now pt denies any chest pain or pressure to me at this point. He still has foot pain and complains of severe toe pain he denies PND orthopnea O: General: no acute distress HEENT: NC/AT. eyes are blind NECK: NO JVD. no stridor. CV: RRR. systolic murmur; no gallop or rubs. PULM: +_ rhonchi. GI: SOFT, NT, ND, no rebound or guarding Extremity: + necrotic/GANGRENE toes/foot neuro: awake and alert, Psych: calm and pleasant rectal: deferred ECG: Normal sinus rhythm. ST-T wave abnormality consistent with inferolateral ischemia Objective Objective Vital Signs Date Time Temp Pulse Resp B/P Pulse Ox O2 Delivery O2 Flow Rate FiO2 04/17/17 08:30 97.7 70 14 147/68 94 Intake and Output 04/16/17 04/16/17 04/17/17 14:59 22:59 06:59 Intake Total 500 ml 300 ml Output Total 3500 ml Balance -3000 ml 300 ml Results/Medications Result Diagram: 04/17/17 0535 04/17/17 0535 Results 24 hrs Laboratory Tests Test 04/17/17 05:35 White Blood Count 10.0 Red Blood Count 3.02 L Hemoglobin 8.2 L Hematocrit 25.2 L Mean Corpuscular Volume 83.4 Mean Corpuscular Hemoglobin 27.2 L Mean Corpuscular Hemoglobin Concent 32.5 Red Cell Distribution Width 19.8 H Platelet Count 187 Mean Platelet Volume 9.9 Neutrophils % 77.9 H Lymphocytes % 4.8 L Monocytes % 13.4 H Eosinophils % 2.7 Basophils % 0.6 Nucleated Red Blood Cells % 0.0 Neutrophils # 7.8 H Lymphocytes # 0.5 L Monocytes # 1.3 H Eosinophils # 0.3 Basophils # 0.1 Nucleated Red Blood Cells # 0.0 Sodium Level 136 Potassium Level 4.8 Chloride Level 96 L Carbon Dioxide Level 25 Anion Gap 20 H Blood Urea Nitrogen 50 H Creatinine 6.24 #H Glucose Level 242 #H Calcium Level 8.8 Medications Current Medications Dextrose/Sodium Chloride (D5-1/2ns) 1,000 ml @ 50 mls/hr Q20H IV Last administered on 04/16/17 23:17; Admin Dose 50 MLS/HR; Start 04/08/17 at 23:30 Ondansetron HCl (Zofran Inj) 4 mg Q6H PRN IV NAUSEA AND/OR VOMITING; Start 04/08/17 at 23:30 Vancomycin HCl (Vancomycin Oral Syringe) 250 mg Q6 PO Last administered on 06:28; Admin Dose 250 MG; Start 04/09/17 at 00:00 Acetaminophen (Tylenol Tab) 650 mg Q4H PRN PO PAIN AND OR ELEVATED TEMP; Start 04/08/17 at 23:30 Acetaminophen/ Hydrocodone Bitart ([place] (5/325)) 1 tab Q4H PRN PO PAIN LEVEL 4 -6 Last administered on 04/16/17 21:03; Admin Dose 1 TAB; Start 04/08/17 at 23 :30 Amlodipine Besylate (Norvasc) 5 mg BID PO Last administered on 04/17/17 09:29 ; Admin Dose 5 MG; Start 04/09/17 at 09:00 Atorvastatin Calcium (Lipitor) 40 mg HS PO Last administered on 04/16/17 20: 53; Admin Dose 40 MG; Start 04/09/17 at 21:00 Cinacalcet (Sensipar) 30 mg BID PO Last administered on 04/17/17 09:28; Admin Dose 30 MG; Start 04/09/17 at 09:00 Clopidogrel Bisulfate (plaVIX) 75 mg DAILY PO Last administered on 04/17/17 09:28; Admin Dose 75 MG; Start 04/09/17 at 09:00 Diphenhydramine HCl (Benadryl) 25 mg Q6H PRN PO ITCHING; Start 04/08/17 at 23: 30 Carvedilol (Coreg) 3.125 mg BID PO Last administered on 04/17/17 09:30; Admin Dose 3.125 MG; Start 04/09/17 at 09:00 Aspirin (Aspirin) 81 mg DAILY PO Last administered on 04/17/17 09:28; Admin Dose 81 MG; Start 04/11/17 at 09:00 Morphine Sulfate (morphine) 2 mg Q4H PRN IV SEVERE PAIN LEVEL 7-10 Last administered on 04/17/17 09:30; Admin Dose 2 MG; Start 04/10/17 at 15:30 Lactobacillus Acidophilus (Florajen3 Capsule) 1 each BID PO Last administered on 04/17/17 09:29; Admin Dose 1 EACH; Start 04/11/17 at 14:30 Metronidazole (Flagyl) 500 mg Q8 PO Last administered on 04/17/17 06:27; Admin Dose 500 MG; Start 04/14/17 at 14:00 Epoetin Jorge Luis (Epogen (Esrd)) 4,000 units MoWeFr@17 IV Last administered on 17:46; Admin Dose 4,000 UNITS; Start 04/16/17 at 17:00 Losartan Potassium (Cozaar) 25 mg BID PO Last administered on 04/17/17 09:29 ; Admin Dose 25 MG; Start 04/16/17 at 09:30 Assessment/Plan Chief Complaint/Hosp Course 1. Non-ST elevation myocardial infarction 2. End-stage renal disease on hemodialysis 3. Severe peripheral vascular disease 4. Gangrene of toe/foot 5. Diabetes 6. Dyslipidemia 7. Congestive heart failure: EF 40% 8. Severe and worsening anemia 9. Known severe coronary artery disease including calcified left main disease 10. Ischemic cardiomyopathy Recommendations: I will CONT aspirin to 81 mg. I will cont ARB Potassium management through the dialysis will be done. We cont to manage the patient with continued and aggressive medical therapy as much as possible. Antibiotic will be managed as per internal medicine IDs recommendations. I will try to review the old films which was done not too long ago at [facility] to review his coronary angiogram. Based on information I have so far he does not appear to be amenable to any intervention safely or bypass surgery. Hemodialysis as per renal. Thank you for his referral. SENTHIL FERRELL MD [facility] Problems: SENTHIL FERRELL MD Apr 17, 2017 11:16
[2017-04-17 13:51] VITALS: BP 174/72; RESP 16
--- NOTE | 2017-04-17 14:35 | CONS ---
Date/Time of Note Date/Time of Note DATE: 04/17/17 TIME: 14:34 Assessment/Plan Assessment/Plan Additional Assessment/Plan 61 yo male with 1)Abd Pain and Diarrhea, C. difficile colitis 2)Elevated troponin, CAD 3)End-stage renal disease hemodialysis dependent 4)Hyperkalemia 5)Left foot gangrenous wounds 6)Severe peripheral vascular disease with severe infrapopliteal disease and pedal disease. 7)Hypertension. 8)CAD 9)Permanent Pacemaker. 10)Legally blind 11)Anemia of chronic disease 12)Possible Pna vs Edema S/p HD MWF Epogen with HD BP elevated, UF with HD, monitor BP Cont Coreg, Norvac and Losartan thank you for the opportunity to participate in the care of Mr Thibodeaux. Consultation Date/Type/Reason Admit Date/Time Apr 08, 2017 at 21:31 Initial Consult Date 04/10/17 Type of Consultation: Renal Referring Provider: POLY THRASHER MD 24 HR Interval Summary Constitutional: No requiring O2 Exam/Review of Systems Vital Signs Vitals Vital Signs Date Time Temp Pulse Resp B/P Pulse Ox O2 Delivery O2 Flow Rate FiO2 04/17/17 13:51 97.7 70 16 174/72 96 Intake and Output 04/16/17 04/16/17 04/17/17 15:00 23:00 07:00 Intake Total 500 ml 300 ml Output Total 3500 ml Balance -3000 ml 300 ml Exam Constitutional: No distress ENMT: mucosa pink and moist Neck: No jvd Respiratory: clear to auscultation, No labored breathing Cardiovascular: regular rate and rhythm, No edema Gastrointestinal: soft Neurological: No lethargic Results Result Diagram: 04/17/17 0535 04/17/17 0535 Results 24 hrs Laboratory Tests Test 04/17/17 05:35 White Blood Count 10.0 Red Blood Count 3.02 L Hemoglobin 8.2 L Hematocrit 25.2 L Mean Corpuscular Volume 83.4 Mean Corpuscular Hemoglobin 27.2 L Mean Corpuscular Hemoglobin Concent 32.5 Red Cell Distribution Width 19.8 H Platelet Count 187 Mean Platelet Volume 9.9 Neutrophils % 77.9 H Lymphocytes % 4.8 L Monocytes % 13.4 H Eosinophils % 2.7 Basophils % 0.6 Nucleated Red Blood Cells % 0.0 Neutrophils # 7.8 H Lymphocytes # 0.5 L Monocytes # 1.3 H Eosinophils # 0.3 Basophils # 0.1 Nucleated Red Blood Cells # 0.0 Sodium Level 136 Potassium Level 4.8 Chloride Level 96 L Carbon Dioxide Level 25 Anion Gap 20 H Blood Urea Nitrogen 50 H Creatinine 6.24 #H Glucose Level 242 #H Calcium Level 8.8 Medications Medications Current Medications Dextrose/Sodium Chloride (D5-1/2ns) 1,000 ml @ 50 mls/hr Q20H IV Last administered on 04/16/17 23:17; Admin Dose 50 MLS/HR; Start 04/08/17 at 23:30 Ondansetron HCl (Zofran Inj) 4 mg Q6H PRN IV NAUSEA AND/OR VOMITING; Start 04/08/17 at 23:30 Vancomycin HCl (Vancomycin Oral Syringe) 250 mg Q6 PO Last administered on 13:08; Admin Dose 250 MG; Start 04/09/17 at 00:00 Acetaminophen (Tylenol Tab) 650 mg Q4H PRN PO PAIN AND OR ELEVATED TEMP; Start 04/08/17 at 23:30 Acetaminophen/ Hydrocodone Bitart ([place] (5/325)) 1 tab Q4H PRN PO PAIN LEVEL 4 -6 Last administered on 04/16/17 21:03; Admin Dose 1 TAB; Start 04/08/17 at 23 :30 Amlodipine Besylate (Norvasc) 5 mg BID PO Last administered on 04/17/17 09:29 ; Admin Dose 5 MG; Start 04/09/17 at 09:00 Atorvastatin Calcium (Lipitor) 40 mg HS PO Last administered on 04/16/17 20: 53; Admin Dose 40 MG; Start 04/09/17 at 21:00 Cinacalcet (Sensipar) 30 mg BID PO Last administered on 04/17/17 09:28; Admin Dose 30 MG; Start 04/09/17 at 09:00 Clopidogrel Bisulfate (plaVIX) 75 mg DAILY PO Last administered on 04/17/17 09:28; Admin Dose 75 MG; Start 04/09/17 at 09:00 Diphenhydramine HCl (Benadryl) 25 mg Q6H PRN PO ITCHING; Start 04/08/17 at 23: 30 Carvedilol (Coreg) 3.125 mg BID PO Last administered on 04/17/17 09:30; Admin Dose 3.125 MG; Start 04/09/17 at 09:00 Aspirin (Aspirin) 81 mg DAILY PO Last administered on 04/17/17 09:28; Admin Dose 81 MG; Start 04/11/17 at 09:00 Morphine Sulfate (morphine) 2 mg Q4H PRN IV SEVERE PAIN LEVEL 7-10 Last administered on 04/17/17 09:30; Admin Dose 2 MG; Start 04/10/17 at 15:30 Lactobacillus Acidophilus (Florajen3 Capsule) 1 each BID PO Last administered on 04/17/17 09:29; Admin Dose 1 EACH; Start 04/11/17 at 14:30 Metronidazole (Flagyl) 500 mg Q8 PO Last administered on 04/17/17 06:27; Admin Dose 500 MG; Start 04/14/17 at 14:00 Epoetin Jorge Luis (Epogen (Esrd)) 4,000 units MoWeFr@17 IV Last administered on 17:46; Admin Dose 4,000 UNITS; Start 04/16/17 at 17:00 Losartan Potassium (Cozaar) 25 mg BID PO Last administered on 04/17/17 09:29 ; Admin Dose 25 MG; Start 04/16/17 at 09:30 PIPER FELIX MD Apr 17, 2017 14:35
--- NOTE | 2017-04-17 16:30 | PN ---
Date/Time of Note Date/Time of Note DATE: 04/17/17 TIME: 16:27 Assessment/Plan VTE Prophylaxis VTE Prophylaxis Intervention: SCD's Lines/Catheters IV C[facility]ter Type (from [facility]): Peripheral IV Urinary Cath still in place: No Assessment/Plan Chief Complaint/Hosp Course Patient with episodes of hypertension, started on Cozaar. Assessment/Plan -C. difficile colitis, continue vancomycin p.o. Dr. Tobias is following in infection disease consultation. -Non-ST NC, continue aspirin. allowing in cardiology consultation. -End-stage renal disease hemodialysis dependent. Dr. Wallace is following in nephrology consultation. Continue hemodialysis. - Possible PNA, continue abx. Dr Tobias is asked to see pt in ID consultation. - Left foot gangrenous wounds - Severe peripheral vascular disease with severe infrapopliteal disease and pedal disease. - Hypertension. - CAD - Permanent Pacemaker. - Legally blind - Anemia of chronic disease. Further recommendations based on clinical course. Plan of care discussed with Dr. French Problems: Exam/Review of Systems Vital Signs Vitals Vital Signs Date Time Temp Pulse Resp B/P Pulse Ox O2 Delivery O2 Flow Rate FiO2 04/17/17 13:51 97.7 70 16 174/72 96 Intake and Output 04/16/17 04/16/17 04/17/17 15:00 23:00 07:00 Intake Total 500 ml 300 ml Output Total 3500 ml Balance -3000 ml 300 ml Exam Constitutional: alert, oriented Eyes: other (Blind) Respiratory: diminished breath sounds Cardiovascular: other (Paced rhythm) Gastrointestinal: soft, tender Musculoskeletal: nl extremities to inspection (Right heel gangrenous wound, left foot gangrene) Extremities: normal pulses, other (Bilateral feet gangrene) Results Result Diagram: 04/17/17 0535 04/17/17 0535 Results 24 hrs Laboratory Tests Test 04/17/17 05:35 White Blood Count 10.0 Red Blood Count 3.02 L Hemoglobin 8.2 L Hematocrit 25.2 L Mean Corpuscular Volume 83.4 Mean Corpuscular Hemoglobin 27.2 L Mean Corpuscular Hemoglobin Concent 32.5 Red Cell Distribution Width 19.8 H Platelet Count 187 Mean Platelet Volume 9.9 Neutrophils % 77.9 H Lymphocytes % 4.8 L Monocytes % 13.4 H Eosinophils % 2.7 Basophils % 0.6 Nucleated Red Blood Cells % 0.0 Neutrophils # 7.8 H Lymphocytes # 0.5 L Monocytes # 1.3 H Eosinophils # 0.3 Basophils # 0.1 Nucleated Red Blood Cells # 0.0 Sodium Level 136 Potassium Level 4.8 Chloride Level 96 L Carbon Dioxide Level 25 Anion Gap 20 H Blood Urea Nitrogen 50 H Creatinine 6.24 #H Glucose Level 242 #H Calcium Level 8.8 Medications Medications Current Medications Dextrose/Sodium Chloride (D5-1/2ns) 1,000 ml @ 50 mls/hr Q20H IV Last administered on 04/16/17 23:17; Admin Dose 50 MLS/HR; Start 04/08/17 at 23:30 Ondansetron HCl (Zofran Inj) 4 mg Q6H PRN IV NAUSEA AND/OR VOMITING; Start 04/08/17 at 23:30 Vancomycin HCl (Vancomycin Oral Syringe) 250 mg Q6 PO Last administered on 13:08; Admin Dose 250 MG; Start 04/09/17 at 00:00 Acetaminophen (Tylenol Tab) 650 mg Q4H PRN PO PAIN AND OR ELEVATED TEMP; Start 04/08/17 at 23:30 Acetaminophen/ Hydrocodone Bitart ([place] (5/325)) 1 tab Q4H PRN PO PAIN LEVEL 4 -6 Last administered on 04/16/17 21:03; Admin Dose 1 TAB; Start 04/08/17 at 23 :30 Amlodipine Besylate (Norvasc) 5 mg BID PO Last administered on 04/17/17 09:29 ; Admin Dose 5 MG; Start 04/09/17 at 09:00 Atorvastatin Calcium (Lipitor) 40 mg HS PO Last administered on 04/16/17 20: 53; Admin Dose 40 MG; Start 04/09/17 at 21:00 Cinacalcet (Sensipar) 30 mg BID PO Last administered on 04/17/17 09:28; Admin Dose 30 MG; Start 04/09/17 at 09:00 Clopidogrel Bisulfate (plaVIX) 75 mg DAILY PO Last administered on 04/17/17 09:28; Admin Dose 75 MG; Start 04/09/17 at 09:00 Diphenhydramine HCl (Benadryl) 25 mg Q6H PRN PO ITCHING; Start 04/08/17 at 23: 30 Carvedilol (Coreg) 3.125 mg BID PO Last administered on 04/17/17 09:30; Admin Dose 3.125 MG; Start 04/09/17 at 09:00 Aspirin (Aspirin) 81 mg DAILY PO Last administered on 04/17/17 09:28; Admin Dose 81 MG; Start 04/11/17 at 09:00 Morphine Sulfate (morphine) 2 mg Q4H PRN IV SEVERE PAIN LEVEL 7-10 Last administered on 04/17/17 15:19; Admin Dose 2 MG; Start 04/10/17 at 15:30 Lactobacillus Acidophilus (Florajen3 Capsule) 1 each BID PO Last administered on 04/17/17 09:29; Admin Dose 1 EACH; Start 04/11/17 at 14:30 Metronidazole (Flagyl) 500 mg Q8 PO Last administered on 04/17/17 14:57; Admin Dose 500 MG; Start 04/14/17 at 14:00 Epoetin Jorge Luis (Epogen (Esrd)) 4,000 units MoWeFr@17 IV Last administered on 17:46; Admin Dose 4,000 UNITS; Start 04/16/17 at 17:00 Losartan Potassium (Cozaar) 25 mg BID PO Last administered on 04/17/17 09:29 ; Admin Dose 25 MG; Start 04/16/17 at 09:30 VIV KING Apr 17, 2017 16:30
[2017-04-17 20:03] VITALS: BP 140/65
[2017-04-17] MEDS: ATORVASTATIN 40 MG TAB PO SCH (20:09)
--- NOTE | 2017-04-17 20:51 | CONS ---
Date/Time of Note Date/Time of Note DATE: 04/17/17 TIME: 20:50 Assessment/Plan Assessment/Plan Chief Complaint/Hosp Course SUBJECTIVE: No acute events per report, no fevers, no diarrhea, looks comfortable MICROBIOLOGY: Blood cultures negative. INDWELLINGS: The patient has AV fistula. ANTIMICROBIALS: Vancomycin PO, Flagyl PHYSICAL EXAMINATION: GENERAL: This is a chronically ill-appearing, fragile, elderly man who is awake , in no distress. HEENT: Head atraumatic, normocephalic. Sclerae anicteric. Buccal mucosa dry. NECK: Supple. CHEST: Rise symmetrical. Breath sounds diminished to bases. HEART: S1, S2. ABDOMEN: Soft, bowel tones present. EXTREMITIES: Left foot gangrene. ASSESSMENT: 1. Systemic inflammatory response syndrome. 2. Clostridium difficile colitis. 3. 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 4. End-stage renal disease. 5. Anemia. 6. Severe peripheral arterial and vascular disease. 7. History of permanent pacemaker placement. PLAN: Remains unchanged, continue Flagyl and oral vancomycin, pain management, vascular recommendations, HD per renal DW staff Problems: Consultation Date/Type/Reason Admit Date/Time Apr 08, 2017 at 21:31 Initial Consult Date 04/10/17 Type of Consultation: ID Referring Provider: POLY THRASHER MD Exam/Review of Systems Vital Signs Vitals Vital Signs Date Time Temp Pulse Resp B/P Pulse Ox O2 Delivery O2 Flow Rate FiO2 04/17/17 20:03 97.7 70 140/65 04/17/17 13:51 16 96 Intake and Output 04/16/17 04/16/17 04/17/17 15:00 23:00 07:00 Intake Total 500 ml 300 ml Output Total 3500 ml Balance -3000 ml 300 ml Results Result Diagram: 04/17/17 0535 04/17/17 0535 Results 24 hrs Laboratory Tests Test 04/17/17 05:35 White Blood Count 10.0 Red Blood Count 3.02 L Hemoglobin 8.2 L Hematocrit 25.2 L Mean Corpuscular Volume 83.4 Mean Corpuscular Hemoglobin 27.2 L Mean Corpuscular Hemoglobin Concent 32.5 Red Cell Distribution Width 19.8 H Platelet Count 187 Mean Platelet Volume 9.9 Neutrophils % 77.9 H Lymphocytes % 4.8 L Monocytes % 13.4 H Eosinophils % 2.7 Basophils % 0.6 Nucleated Red Blood Cells % 0.0 Neutrophils # 7.8 H Lymphocytes # 0.5 L Monocytes # 1.3 H Eosinophils # 0.3 Basophils # 0.1 Nucleated Red Blood Cells # 0.0 Sodium Level 136 Potassium Level 4.8 Chloride Level 96 L Carbon Dioxide Level 25 Anion Gap 20 H Blood Urea Nitrogen 50 H Creatinine 6.24 #H Glucose Level 242 #H Calcium Level 8.8 Medications Medications Current Medications Dextrose/Sodium Chloride (D5-1/2ns) 1,000 ml @ 50 mls/hr Q20H IV Last administered on 04/17/17 18:21; Admin Dose 50 MLS/HR; Start 04/08/17 at 23:30 Ondansetron HCl (Zofran Inj) 4 mg Q6H PRN IV NAUSEA AND/OR VOMITING; Start 04/08/17 at 23:30 Vancomycin HCl (Vancomycin Oral Syringe) 250 mg Q6 PO Last administered on 18:19; Admin Dose 250 MG; Start 04/09/17 at 00:00 Acetaminophen (Tylenol Tab) 650 mg Q4H PRN PO PAIN AND OR ELEVATED TEMP; Start 04/08/17 at 23:30 Acetaminophen/ Hydrocodone Bitart ([place] (5/325)) 1 tab Q4H PRN PO PAIN LEVEL 4 -6 Last administered on 04/16/17 21:03; Admin Dose 1 TAB; Start 04/08/17 at 23 :30 Amlodipine Besylate (Norvasc) 5 mg BID PO Last administered on 04/17/17 20:10 ; Admin Dose 5 MG; Start 04/09/17 at 09:00 Atorvastatin Calcium (Lipitor) 40 mg HS PO Last administered on 04/17/17 20: 09; Admin Dose 40 MG; Start 04/09/17 at 21:00 Cinacalcet (Sensipar) 30 mg BID PO Last administered on 04/17/17 20:09; Admin Dose 30 MG; Start 04/09/17 at 09:00 Clopidogrel Bisulfate (plaVIX) 75 mg DAILY PO Last administered on 04/17/17 09:28; Admin Dose 75 MG; Start 04/09/17 at 09:00 Diphenhydramine HCl (Benadryl) 25 mg Q6H PRN PO ITCHING; Start 04/08/17 at 23: 30 Carvedilol (Coreg) 3.125 mg BID PO Last administered on 04/17/17 20:11; Admin Dose 3.125 MG; Start 04/09/17 at 09:00 Aspirin (Aspirin) 81 mg DAILY PO Last administered on 04/17/17 09:28; Admin Dose 81 MG; Start 04/11/17 at 09:00 Morphine Sulfate (morphine) 2 mg Q4H PRN IV SEVERE PAIN LEVEL 7-10 Last administered on 04/17/17 20:12; Admin Dose 2 MG; Start 04/10/17 at 15:30 Lactobacillus Acidophilus (Florajen3 Capsule) 1 each BID PO Last administered on 04/17/17 20:09; Admin Dose 1 EACH; Start 04/11/17 at 14:30 Metronidazole (Flagyl) 500 mg Q8 PO Last administered on 04/17/17 14:57; Admin Dose 500 MG; Start 04/14/17 at 14:00 Epoetin Jorge Luis (Epogen (Esrd)) 4,000 units MoWeFr@17 IV Last administered on 17:46; Admin Dose 4,000 UNITS; Start 04/16/17 at 17:00 Losartan Potassium (Cozaar) 25 mg BID PO Last administered on 04/17/17 20:10 ; Admin Dose 25 MG; Start 04/16/17 at 09:30 SHITAL MCKEON NP Apr 17, 2017 20:51
[2017-04-18] VITALS (13 sets, daily range): BP systolic 120–177; BP diastolic 61–84; PULSE 63–72; RESP 18
[2017-04-18] MEDS: morphine 2 MG INJ IV PRN ×6 (00:19→23:33)
[2017-04-18] MEDS: metroNIDAZOLE 500 MG TAB PO SCH ×3 (05:54→20:46)
[2017-04-18] MEDS: VANCOMYCIN HCL 250 MG/5ML POSYG PO SCH ×4 (05:54→23:32)
[2017-04-18] MEDS: CINACALCET 30 MG TAB PO SCH ×2 (08:25→20:45)
[2017-04-18] MEDS: CLOPIDOGREL 75 MG TAB PO SCH (08:25)
[2017-04-18] MEDS: CALCIUM ACETATE 667 MG CAP PO SCH ×3 (08:25→18:00)
[2017-04-18] MEDS: SEVELAMER 800 MG TAB PO SCH ×3 (08:25→18:00)
[2017-04-18] MEDS: L ACIDOPHIL/B LACTIS/B LONGUM CAPSULE PO SCH ×2 (08:27→20:45)
[2017-04-18] MEDS: ASPIRIN 81 MG TAB PO SCH (08:27)
[2017-04-18] MEDS: BALSAM PERU/CASTOR OIL 60 GM TUBE TOP SCH ×2 (08:27→20:46)
[2017-04-18] MEDS: LOSARTAN 25 MG TAB PO SCH ×2 (09:00→20:46)
[2017-04-18] MEDS: AMLODIPINE 5 MG TAB PO SCH ×2 (09:00→20:45)
[2017-04-18] MEDS: DIPHENHYDRAMINE 25 MG CAP PO PRN (14:07)
[2017-04-18] MEDS: DEXTROSE 5%-0.45% NACL 1,000 ML IV SCH (14:07)
--- NOTE | 2017-04-18 14:18 | CONS ---
Date/Time of Note Date/Time of Note DATE: 04/18/17 TIME: 14:17 Assessment/Plan Assessment/Plan Chief Complaint/Hosp Course SUBJECTIVE: No acute events per report, no fevers, in HD, looks comfortable MICROBIOLOGY: Blood cultures negative. INDWELLINGS: The patient has AV fistula. ANTIMICROBIALS: Vancomycin PO, Flagyl PHYSICAL EXAMINATION: GENERAL: This is a chronically ill-appearing, fragile, elderly man who is awake , in no distress. HEENT: Head atraumatic, normocephalic. Sclerae anicteric. Buccal mucosa dry. NECK: Supple. CHEST: Rise symmetrical. Breath sounds diminished to bases. HEART: S1, S2. ABDOMEN: Soft, bowel tones present. EXTREMITIES: Left foot gangrene. ASSESSMENT: 1. Systemic inflammatory response syndrome. 2. Clostridium difficile colitis. 3. 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 4. End-stage renal disease. 5. Anemia. 6. Severe peripheral arterial and vascular disease. 7. History of permanent pacemaker placement. PLAN: Remains unchanged, continue abx to complete 2 weeks, pain management, vascular recommendations, HD per renal DW staff Problems: Consultation Date/Type/Reason Admit Date/Time Apr 08, 2017 at 21:31 Initial Consult Date 04/10/17 Type of Consultation: ID Referring Provider: POLY THRASHER MD Exam/Review of Systems Vital Signs Vitals Vital Signs Date Time Temp Pulse Resp B/P Pulse Ox O2 Delivery O2 Flow Rate FiO2 04/18/17 12:40 70 04/18/17 10:40 20 04/18/17 08:01 97.6 162/77 98 Intake and Output 04/17/17 04/17/17 04/18/17 14:59 22:59 06:59 Intake Total 1540 ml 550 ml Balance 1540 ml 550 ml Results Result Diagram: 04/17/17 0535 04/17/17 0535 Medications Medications Current Medications Dextrose/Sodium Chloride (D5-1/2ns) 1,000 ml @ 50 mls/hr Q20H IV Last administered on 04/18/17t 14:07; Admin Dose 50 MLS/HR; Start 04/08/17 at 23:30 Ondansetron HCl (Zofran Inj) 4 mg Q6H PRN IV NAUSEA AND/OR VOMITING; Start 04/08/17 at 23:30 Vancomycin HCl (Vancomycin Oral Syringe) 250 mg Q6 PO Last administered on 12:00; Admin Dose 250 MG; Start 04/09/17 at 00:00 Acetaminophen (Tylenol Tab) 650 mg Q4H PRN PO PAIN AND OR ELEVATED TEMP; Start 04/08/17 at 23:30 Acetaminophen/ Hydrocodone Bitart ([place] (5/325)) 1 tab Q4H PRN PO PAIN LEVEL 4 -6 Last administered on 04/16/17 21:03; Admin Dose 1 TAB; Start 04/08/17 at 23 :30 Amlodipine Besylate (Norvasc) 5 mg BID PO Last administered on 04/17/17 20:10 ; Admin Dose 5 MG; Start 04/09/17 at 09:00 Atorvastatin Calcium (Lipitor) 40 mg HS PO Last administered on 04/17/17 20: 09; Admin Dose 40 MG; Start 04/09/17 at 21:00 Cinacalcet (Sensipar) 30 mg BID PO Last administered on 04/18/17 08:25; Admin Dose 30 MG; Start 04/09/17 at 09:00 Clopidogrel Bisulfate (plaVIX) 75 mg DAILY PO Last administered on 04/18/17 08:25; Admin Dose 75 MG; Start 04/09/17 at 09:00 Diphenhydramine HCl (Benadryl) 25 mg Q6H PRN PO ITCHING Last administered on 14:07; Admin Dose 25 MG; Start 04/08/17 at 23:30 Carvedilol (Coreg) 3.125 mg BID PO Last administered on 04/17/17 20:11; Admin Dose 3.125 MG; Start 04/09/17 at 09:00 Aspirin (Aspirin) 81 mg DAILY PO Last administered on 04/18/17 08:27; Admin Dose 81 MG; Start 04/11/17 at 09:00 Morphine Sulfate (morphine) 2 mg Q4H PRN IV SEVERE PAIN LEVEL 7-10 Last administered on 04/18/17 14:07; Admin Dose 2 MG; Start 04/10/17 at 15:30 Lactobacillus Acidophilus (Florajen3 Capsule) 1 each BID PO Last administered on 04/17/17 20:09; Admin Dose 1 EACH; Start 04/11/17 at 14:30 Metronidazole (Flagyl) 500 mg Q8 PO Last administered on 04/18/17 13:32; Admin Dose 500 MG; Start 04/14/17 at 14:00 Epoetin Jorge Luis (Epogen (Esrd)) 4,000 units MoWeFr@17 IV Last administered on 17:46; Admin Dose 4,000 UNITS; Start 04/16/17 at 17:00 Losartan Potassium (Cozaar) 25 mg BID PO Last administered on 04/17/17 20:10 ; Admin Dose 25 MG; Start 04/16/17 at 09:30 SHITAL MCKEON NP Apr 18, 2017 14:18
[2017-04-18] MEDS ORDERED: AL HYDROX/MG HYDROX/SIMETH 30 ML CUP PO PRN (16:00)
--- NOTE | 2017-04-18 16:27 | PN ---
Date/Time of Note Date/Time of Note DATE: 04/18/17 TIME: 16:24 Assessment/Plan VTE Prophylaxis VTE Prophylaxis Intervention: SCD's Lines/Catheters IV [facility] Type (from [facility] Peripheral IV Urinary Cath still in place: No Assessment/Plan Chief Complaint/Hosp Course Patient refused p.o. medication, discussed importance of adherence to medication regimen. Continues to have episodes of hypertension. Assessment/Plan -C. difficile colitis, continue vancomycin p.o. Dr. Tobias is following in infection disease consultation. -Non-ST PA, continue aspirin. allowing in cardiology consultation. -End-stage renal disease hemodialysis dependent. Dr. Wallace is following in nephrology consultation. Continue hemodialysis. - Possible PNA, continue abx. - Left foot gangrenous wounds - Severe peripheral vascular disease with severe infrapopliteal disease and pedal disease. - Hypertension. - CAD - Permanent Pacemaker. - Legally blind - Anemia of chronic disease. Further recommendations based on clinical course. Plan of care discussed with Dr. French Problems: Exam/Review of Systems Vital Signs Vitals Vital Signs Date Time Temp Pulse Resp B/P Pulse Ox O2 Delivery O2 Flow Rate FiO2 04/18/17 14:48 98.0 73 18 177/84 100 Intake and Output 04/17/17 04/17/17 04/18/17 15:00 23:00 07:00 Intake Total 1540 ml 550 ml Balance 1540 ml 550 ml Exam Constitutional: alert, oriented Eyes: other (Blind) Respiratory: diminished breath sounds Cardiovascular: other (Paced rhythm) Gastrointestinal: soft, tender Musculoskeletal: nl extremities to inspection (Right heel gangrenous wound, left foot gangrene) Extremities: normal pulses, other (Bilateral feet gangrene) Results Result Diagram: 04/17/1735 04/17/17 0535 Medications Medications Current Medications Dextrose/Sodium Chloride (D5-1/2ns) 1,000 ml @ 50 mls/hr Q20H IV Last administered on 04/18/17 14:07; Admin Dose 50 MLS/HR; Start 04/08/17 at 23:30 Ondansetron HCl (Zofran Inj) 4 mg Q6H PRN IV NAUSEA AND/OR VOMITING; Start 04/08/17 at 23:30 Vancomycin HCl (Vancomycin Oral Syringe) 250 mg Q6 PO Last administered on 12:00; Admin Dose 250 MG; Start 04/09/17 at 00:00 Acetaminophen (Tylenol Tab) 650 mg Q4H PRN PO PAIN AND OR ELEVATED TEMP; Start 04/08/17 at 23:30 Acetaminophen/ Hydrocodone Bitart ([place] (5/325)) 1 tab Q4H PRN PO PAIN LEVEL 4 -6 Last administered on 04/16/17 21:03; Admin Dose 1 TAB; Start 04/08/17 at 23 :30 Amlodipine Besylate (Norvasc) 5 mg BID PO Last administered on 04/17/17 20:10 ; Admin Dose 5 MG; Start 04/09/17 at 09:00 Atorvastatin Calcium (Lipitor) 40 mg HS PO Last administered on 04/17/17 20: 09; Admin Dose 40 MG; Start 04/09/17 at 21:00 Cinacalcet (Sensipar) 30 mg BID PO Last administered on 04/18/17 08:25; Admin Dose 30 MG; Start 04/09/17 at 09:00 Clopidogrel Bisulfate (plaVIX) 75 mg DAILY PO Last administered on 04/18/17 08:25; Admin Dose 75 MG; Start 04/09/17 at 09:00 Diphenhydramine HCl (Benadryl) 25 mg Q6H PRN PO ITCHING Last administered on 14:07; Admin Dose 25 MG; Start 04/08/17 at 23:30 Carvedilol (Coreg) 3.125 mg BID PO Last administered on 04/17/17 20:11; Admin Dose 3.125 MG; Start 04/09/17 at 09:00 Aspirin (Aspirin) 81 mg DAILY PO Last administered on 04/18/17 08:27; Admin Dose 81 MG; Start 04/11/17 at 09:00 Morphine Sulfate (morphine) 2 mg Q4H PRN IV SEVERE PAIN LEVEL 7-10 Last administered on 04/18/17 14:07; Admin Dose 2 MG; Start 04/10/17 at 15:30 Lactobacillus Acidophilus (Florajen3 Capsule) 1 each BID PO Last administered on 04/17/17 20:09; Admin Dose 1 EACH; Start 04/11/17 at 14:30 Metronidazole (Flagyl) 500 mg Q8 PO Last administered on 04/18/17 13:32; Admin Dose 500 MG; Start 04/14/17 at 14:00 Epoetin Jorge Luis (Epogen (Esrd)) 4,000 units MoWeFr@17 IV Last administered on 17:46; Admin Dose 4,000 UNITS; Start 04/16/17 at 17:00 Losartan Potassium (Cozaar) 25 mg BID PO Last administered on 04/17/17 20:10 ; Admin Dose 25 MG; Start 04/16/17 at 09:30 Al Hydrox/Mg Hydrox/Simethicone (Mag-Al Plus) 30 ml Q6H PRN PO GASTROINTESTINAL UPSET; Start 04/18/17 at 16:00 VIV KING Apr 18, 2017 16:27
--- NOTE | 2017-04-18 16:56 | CONS ---
Date/Time of Note Date/Time of Note DATE: 04/18/17 TIME: 16:55 Consult Date/Type/Reason Admit Date/Time Apr 08, 2017 at 21:31 Initial Consult Date 04/10/17 Type of Consultation: cv Ordering Provider: POLY THRASHER MD Subjective Cardiology follow-up progress note (on behalf of Dr.Leo Barr) S: Discussed with staff and his family at the bedside pt is off of tele now pt denies any chest pain or pressure to me at this point. He still has foot pain and complains of severe toe pain he denies PND orthopnea O: General: no acute distress HEENT: NC/AT. eyes are blind NECK: NO JVD. no stridor. CV: RRR. systolic murmur; no gallop or rubs. PULM: +_ rhonchi. GI: SOFT, NT, ND, no rebound or guarding Extremity: + necrotic/GANGRENE toes/foot neuro: awake and alert, Psych: calm and pleasant rectal: deferred ECG: Normal sinus rhythm. ST-T wave abnormality consistent with inferolateral ischemia Objective Vital Signs Date Time Temp Pulse Resp B/P Pulse Ox O2 Delivery O2 Flow Rate FiO2 04/18/17 14:48 98.0 73 18 177/84 100 Intake and Output 04/17/17 04/17/17 04/18/17 15:00 23:00 07:00 Intake Total 1540 ml 550 ml Balance 1540 ml 550 ml Results/Medications Result Diagram: 04/17/17 0535 04/17/17 0535 Medications Current Medications Dextrose/Sodium Chloride (D5-1/2ns) 1,000 ml @ 50 mls/hr Q20H IV Last administered on 04/18/17 14:07; Admin Dose 50 MLS/HR; Start 04/08/17 at 23:30 Ondansetron HCl (Zofran Inj) 4 mg Q6H PRN IV NAUSEA AND/OR VOMITING; Start 04/08/17 at 23:30 Vancomycin HCl (Vancomycin Oral Syringe) 250 mg Q6 PO Last administered on 12:00; Admin Dose 250 MG; Start 04/09/17 at 00:00 Acetaminophen (Tylenol Tab) 650 mg Q4H PRN PO PAIN AND OR ELEVATED TEMP; Start 04/08/17 at 23:30 Acetaminophen/ Hydrocodone Bitart ([place] (5/325)) 1 tab Q4H PRN PO PAIN LEVEL 4 -6 Last administered on 04/16/17 21:03; Admin Dose 1 TAB; Start 04/08/17 at 23 :30 Amlodipine Besylate (Norvasc) 5 mg BID PO Last administered on 04/17/17 20:10 ; Admin Dose 5 MG; Start 04/09/17 at 09:00 Atorvastatin Calcium (Lipitor) 40 mg HS PO Last administered on 04/17/17 20: 09; Admin Dose 40 MG; Start 04/09/17 at 21:00 Cinacalcet (Sensipar) 30 mg BID PO Last administered on 04/18/17 08:25; Admin Dose 30 MG; Start 04/09/17 at 09:00 Clopidogrel Bisulfate (plaVIX) 75 mg DAILY PO Last administered on 04/18/17 08:25; Admin Dose 75 MG; Start 04/09/17 at 09:00 Diphenhydramine HCl (Benadryl) 25 mg Q6H PRN PO ITCHING Last administered on 14:07; Admin Dose 25 MG; Start 04/08/17 at 23:30 Carvedilol (Coreg) 3.125 mg BID PO Last administered on 04/17/17 20:11; Admin Dose 3.125 MG; Start 04/09/17 at 09:00 Aspirin (Aspirin) 81 mg DAILY PO Last administered on 04/18/17 08:27; Admin Dose 81 MG; Start 04/11/17 at 09:00 Morphine Sulfate (morphine) 2 mg Q4H PRN IV SEVERE PAIN LEVEL 7-10 Last administered on 04/18/17 14:07; Admin Dose 2 MG; Start 04/10/17 at 15:30 Lactobacillus Acidophilus (Florajen3 Capsule) 1 each BID PO Last administered on 04/17/17 20:09; Admin Dose 1 EACH; Start 04/11/17 at 14:30 Metronidazole (Flagyl) 500 mg Q8 PO Last administered on 04/18/17 13:32; Admin Dose 500 MG; Start 04/14/17 at 14:00 Epoetin Jorge Luis (Epogen (Esrd)) 4,000 units MoWeFr@17 IV Last administered on 17:46; Admin Dose 4,000 UNITS; Start 04/16/17 at 17:00 Losartan Potassium (Cozaar) 25 mg BID PO Last administered on 04/17/17 20:10 ; Admin Dose 25 MG; Start 04/16/17 at 09:30 Al Hydrox/Mg Hydrox/Simethicone (Mag-Al Plus) 30 ml Q6H PRN PO GASTROINTESTINAL UPSET; Start 04/18/17 at 16:00 Assessment/Plan Chief Complaint/Hosp Course 1. Non-ST elevation myocardial infarction 2. End-stage renal disease on hemodialysis 3. Severe peripheral vascular disease 4. Gangrene of toe/foot 5. Diabetes 6. Dyslipidemia 7. Congestive heart failure: EF 40% 8. Severe and worsening anemia 9. Known severe coronary artery disease including calcified left main disease 10. Ischemic cardiomyopathy Recommendations: I will CONT aspirin to 81 mg. I will cont ARB Potassium management through the dialysis will be done. We cont to manage the patient with continued and aggressive medical therapy as much as possible. Antibiotic will be managed as per internal medicine IDs recommendations. Hemodialysis as per renal. Thank you for his referral. SENTHIL FERRELL MD [facility] Problems: SENTHIL FERRELL MD Apr 18, 2017 16:56
[2017-04-18] MEDS: EPOETIN 4000 UNITS/1 ML INJ (ESRD) IV SCH (18:10)
[2017-04-18] MEDS: EPOETIN 4000 UNITS/1 ML INJ (ESRD) SC SCH (18:56)
--- NOTE | 2017-04-18 20:04 | CONS ---
Date/Time of Note Date/Time of Note DATE: 04/18/17 TIME: 20:03 Assessment/Plan Assessment/Plan Additional Assessment/Plan 61 yo male with 1)Abd Pain and Diarrhea, C. difficile colitis 2)Elevated troponin, CAD 3)End-stage renal disease hemodialysis dependent 4)Hyperkalemia 5)Left foot gangrenous wounds 6)Severe peripheral vascular disease with severe infrapopliteal disease and pedal disease. 7)Hypertension. 8)CAD 9)Permanent Pacemaker. 10)Legally blind 11)Anemia of chronic disease 12)Possible Pna vs Edema S/p HD MWF Epogen with HD BP elevated, UF with HD, monitor BP Cont Coreg, Norvac and Losartan thank you for the opportunity to participate in the care of Mr Thibodeaux. Consultation Date/Type/Reason Admit Date/Time Apr 08, 2017 at 21:31 Initial Consult Date 04/10/17 Type of Consultation: Renal Referring Provider: POLY THRASHER MD 24 HR Interval Summary Constitutional: No requiring O2 Exam/Review of Systems Vital Signs Vitals Vital Signs Date Time Temp Pulse Resp B/P Pulse Ox O2 Delivery O2 Flow Rate FiO2 04/18/17 14:48 98.0 73 18 177/84 100 Intake and Output 04/17/17 04/17/17 04/18/17 15:00 23:00 07:00 Intake Total 1540 ml 550 ml Balance 1540 ml 550 ml Exam Constitutional: No distress ENMT: mucosa pink and moist Respiratory: clear to auscultation Gastrointestinal: soft Extremities: No edema Neurological: No lethargic Results Result Diagram: 04/17/17 0535 04/17/17 0535 Medications Medications Current Medications Ondansetron HCl (Zofran Inj) 4 mg Q6H PRN IV NAUSEA AND/OR VOMITING; Start 04/08/17 at 23:30 Vancomycin HCl (Vancomycin Oral Syringe) 250 mg Q6 PO Last administered on 12:00; Admin Dose 250 MG; Start 04/09/17 at 00:00 Acetaminophen (Tylenol Tab) 650 mg Q4H PRN PO PAIN AND OR ELEVATED TEMP; Start 04/08/17 at 23:30 Acetaminophen/ Hydrocodone Bitart ([place] (5/325)) 1 tab Q4H PRN PO PAIN LEVEL 4 -6 Last administered on 04/16/17 21:03; Admin Dose 1 TAB; Start 04/08/17 at 23 :30 Amlodipine Besylate (Norvasc) 5 mg BID PO Last administered on 04/17/17 20:10 ; Admin Dose 5 MG; Start 04/09/17 at 09:00 Atorvastatin Calcium (Lipitor) 40 mg HS PO Last administered on 04/17/17 20: 09; Admin Dose 40 MG; Start 04/09/17 at 21:00 Cinacalcet (Sensipar) 30 mg BID PO Last administered on 04/18/17 08:25; Admin Dose 30 MG; Start 04/09/17 at 09:00 Clopidogrel Bisulfate (plaVIX) 75 mg DAILY PO Last administered on 04/18/17 08:25; Admin Dose 75 MG; Start 04/09/17 at 09:00 Diphenhydramine HCl (Benadryl) 25 mg Q6H PRN PO ITCHING Last administered on 14:07; Admin Dose 25 MG; Start 04/08/17 at 23:30 Carvedilol (Coreg) 3.125 mg BID PO Last administered on 04/17/17 20:11; Admin Dose 3.125 MG; Start 04/09/17 at 09:00 Aspirin (Aspirin) 81 mg DAILY PO Last administered on 04/18/17 08:27; Admin Dose 81 MG; Start 04/11/17 at 09:00 Morphine Sulfate (morphine) 2 mg Q4H PRN IV SEVERE PAIN LEVEL 7-10 Last administered on 04/18/17 18:57; Admin Dose 2 MG; Start 04/10/17 at 15:30 Lactobacillus Acidophilus (Florajen3 Capsule) 1 each BID PO Last administered on 04/17/17 20:09; Admin Dose 1 EACH; Start 04/11/17 at 14:30 Metronidazole (Flagyl) 500 mg Q8 PO Last administered on 04/18/17 13:32; Admin Dose 500 MG; Start 04/14/17 at 14:00 Losartan Potassium (Cozaar) 25 mg BID PO Last administered on 04/17/17 20:10 ; Admin Dose 25 MG; Start 04/16/17 at 09:30 Al Hydrox/Mg Hydrox/Simethicone (Mag-Al Plus) 30 ml Q6H PRN PO GASTROINTESTINAL UPSET Last administered on 04/18/17 18:11; Admin Dose 30 ML; Start 04/18/17 at 16:00 Epoetin Jorge Luis (Epogen (Esrd)) 4,000 units MoWeFr@17 SC Last administered on 18:56; Admin Dose 4,000 UNITS; Start 04/18/17 at 18:50 PIPER FELIX MD Apr 18, 2017 20:04
[2017-04-18] MEDS: ATORVASTATIN 40 MG TAB PO SCH (20:45)
[2017-04-19 02:37] VITALS: BP 177/70; RESP 18
[2017-04-19 03:34] VITALS: BP 152/87; PULSE 65; RESP 16
[2017-04-19] MEDS: VANCOMYCIN HCL 250 MG/5ML POSYG PO SCH ×3 (05:34→18:00)
[2017-04-19] MEDS: metroNIDAZOLE 500 MG TAB PO SCH ×4 (05:34→21:33)
[2017-04-19] MEDS: morphine 2 MG INJ IV PRN ×4 (05:34→20:19)
[2017-04-19 08:17] VITALS: BP 160/71; RESP 18
[2017-04-19] MEDS: LOSARTAN 25 MG TAB PO SCH ×2 (09:57→20:17)
[2017-04-19] MEDS: CALCIUM ACETATE 667 MG CAP PO SCH ×3 (09:57→18:04)
[2017-04-19] MEDS: CINACALCET 30 MG TAB PO SCH ×2 (09:57→20:15)
[2017-04-19] MEDS: SEVELAMER 800 MG TAB PO SCH ×3 (09:58→18:04)
[2017-04-19] MEDS: AMLODIPINE 5 MG TAB PO SCH ×2 (09:58→20:16)
[2017-04-19] MEDS: CLOPIDOGREL 75 MG TAB PO SCH (09:58)
[2017-04-19] MEDS: L ACIDOPHIL/B LACTIS/B LONGUM CAPSULE PO SCH ×2 (09:58→20:15)
[2017-04-19] MEDS: ASPIRIN 81 MG TAB PO SCH (09:58)
[2017-04-19] MEDS: BALSAM PERU/CASTOR OIL 60 GM TUBE TOP SCH ×2 (09:58→20:23)
--- NOTE | 2017-04-19 12:03 | PN ---
Date/Time of Note Date/Time of Note DATE: 04/19/17 TIME: 12:02 Assessment/Plan VTE Prophylaxis VTE Prophylaxis Intervention: other Assessment/Plan Chief Complaint/Hosp Course 1)Abd Pain and Diarrhea, C. difficile colitis 2)Elevated troponin, CAD 3)End-stage renal disease hemodialysis dependent 4)Hyperkalemia 5)Left foot gangrenous wounds 6)Severe peripheral vascular disease with severe infrapopliteal disease and pedal disease. 7)Hypertension. 8)CAD 9)Permanent Pacemaker. 10)Legally blind 11)Anemia of chronic disease 12)Possible Pna vs Edema [id number] improving loose bm hd mwf Problems: Subjective 24 Hr Interval Summary Constitutional: no complaints Eyes: no complaints Cardiovascular: no complaints Gastrointestinal: no complaints Exam/Review of Systems Vital Signs Vitals Vital Signs Date Time Temp Pulse Resp B/P Pulse Ox O2 Delivery O2 Flow Rate FiO2 04/19/17 08:17 98.3 75 18 160/71 96 04/18/17 20:43 Room Air Intake and Output 04/18/17 04/18/17 04/19/17 15:00 23:00 07:00 Intake Total 950 ml 1390 ml Output Total 2500 ml Balance -1550 ml 1390 ml Exam Constitutional: alert, oriented Psych: no complaints Head: normocephalic Eyes: nl conjunctiva Neck: supple Respiratory: clear to auscultation, normal air movement Cardiovascular: bruits, regular rate and rhythm Gastrointestinal: soft Results Result Diagram: 04/17/17 0535 04/17/17 0535 Medications Medications Current Medications Ondansetron HCl (Zofran Inj) 4 mg Q6H PRN IV NAUSEA AND/OR VOMITING; Start 04/08/17 at 23:30 Vancomycin HCl (Vancomycin Oral Syringe) 250 mg Q6 PO Last administered on 05:34; Admin Dose 250 MG; Start 04/09/17 at 00:00 Acetaminophen (Tylenol Tab) 650 mg Q4H PRN PO PAIN AND OR ELEVATED TEMP; Start 04/08/17 at 23:30 Acetaminophen/ Hydrocodone Bitart ([place] (5/325)) 1 tab Q4H PRN PO PAIN LEVEL 4 -6 Last administered on 04/16/17 21:03; Admin Dose 1 TAB; Start 04/08/17 at 23 :30 Amlodipine Besylate (Norvasc) 5 mg BID PO Last administered on 04/19/17 09:58 ; Admin Dose 5 MG; Start 04/09/17 at 09:00 Atorvastatin Calcium (Lipitor) 40 mg HS PO Last administered on 04/18/17 20: 45; Admin Dose 40 MG; Start 04/09/17 at 21:00 Cinacalcet (Sensipar) 30 mg BID PO Last administered on 04/19/17 09:57; Admin Dose 30 MG; Start 04/09/17 at 09:00 Clopidogrel Bisulfate (plaVIX) 75 mg DAILY PO Last administered on 04/19/17 09:58; Admin Dose 75 MG; Start 04/09/17 at 09:00 Diphenhydramine HCl (Benadryl) 25 mg Q6H PRN PO ITCHING Last administered on 14:07; Admin Dose 25 MG; Start 04/08/17 at 23:30 Carvedilol (Coreg) 3.125 mg BID PO Last administered on 04/19/17 09:57; Admin Dose 3.125 MG; Start 04/09/17 at 09:00 Aspirin (Aspirin) 81 mg DAILY PO Last administered on 04/19/17 09:58; Admin Dose 81 MG; Start 04/11/17 at 09:00 Morphine Sulfate (morphine) 2 mg Q4H PRN IV SEVERE PAIN LEVEL 7-10 Last administered on 04/19/17 10:19; Admin Dose 2 MG; Start 04/10/17 at 15:30 Lactobacillus Acidophilus (Florajen3 Capsule) 1 each BID PO Last administered on 04/19/17 09:58; Admin Dose 1 EACH; Start 04/11/17 at 14:30 Metronidazole (Flagyl) 500 mg Q8 PO Last administered on 04/19/17 05:34; Admin Dose 500 MG; Start 04/14/17 at 14:00 Losartan Potassium (Cozaar) 25 mg BID PO Last administered on 04/19/17 09:57 ; Admin Dose 25 MG; Start 04/16/17 at 09:30 Al Hydrox/Mg Hydrox/Simethicone (Mag-Al Plus) 30 ml Q6H PRN PO GASTROINTESTINAL UPSET Last administered on 04/18/17 18:11; Admin Dose 30 ML; Start 04/18/17 at 16:00 Epoetin Jorge Luis (Epogen (Esrd)) 4,000 units MoWeFr@17 SC Last administered on t 18:56; Admin Dose 4,000 UNITS; Start 04/18/17 at 18:50 RENÉE KENNEDY MD Apr 19, 2017 12:03
--- NOTE | 2017-04-19 13:46 | CONS ---
Date/Time of Note Date/Time of Note DATE: 04/19/17 TIME: 13:46 Assessment/Plan Assessment/Plan Chief Complaint/Hosp Course SUBJECTIVE: No acute events per report, no fevers, c/o pain, looks comfortable MICROBIOLOGY: Blood cultures negative. INDWELLINGS: The patient has AV fistula. ANTIMICROBIALS: Vancomycin PO, Flagyl PHYSICAL EXAMINATION: GENERAL: This is a chronically ill-appearing, fragile, elderly man who is awake , in no distress. HEENT: Head atraumatic, normocephalic. Sclerae anicteric. Buccal mucosa dry. NECK: Supple. CHEST: Rise symmetrical. Breath sounds diminished to bases. HEART: S1, S2. ABDOMEN: Soft, bowel tones present. EXTREMITIES: Left foot gangrene. ASSESSMENT: 1. Systemic inflammatory response syndrome. 2. Clostridium difficile colitis. 3. 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 4. End-stage renal disease. 5. Anemia. 6. Severe peripheral arterial and vascular disease. 7. History of permanent pacemaker placement. PLAN: Remains unchanged, continue abx to complete 2 weeks, pain management, vascular recommendations, HD per renal DW staff Problems: Consultation Date/Type/Reason Admit Date/Time Apr 08, 2017 at 21:31 Initial Consult Date 04/10/17 Type of Consultation: ID Referring Provider: POLY THRASHER MD Exam/Review of Systems Vital Signs Vitals Vital Signs Date Time Temp Pulse Resp B/P Pulse Ox O2 Delivery O2 Flow Rate FiO2 04/19/17 08:17 98.3 75 18 160/71 96 04/18/17 20:43 Room Air Intake and Output 04/18/17 04/18/17 04/19/17 15:00 23:00 07:00 Intake Total 950 ml 1390 ml Output Total 2500 ml Balance -1550 ml 1390 ml Results Result Diagram: 04/17/17 0535 04/17/17 0535 Medications Medications Current Medications Ondansetron HCl (Zofran Inj) 4 mg Q6H PRN IV NAUSEA AND/OR VOMITING; Start 04/08/17 at 23:30 Vancomycin HCl (Vancomycin Oral Syringe) 250 mg Q6 PO Last administered on t 12:31; Admin Dose 250 MG; Start 04/09/17 at 00:00 Acetaminophen (Tylenol Tab) 650 mg Q4H PRN PO PAIN AND OR ELEVATED TEMP; Start 04/08/17 at 23:30 Acetaminophen/ Hydrocodone Bitart ([place] (5/325)) 1 tab Q4H PRN PO PAIN LEVEL 4 -6 Last administered on 04/16/17 21:03; Admin Dose 1 TAB; Start 04/08/17 at 23 :30 Amlodipine Besylate (Norvasc) 5 mg BID PO Last administered on 04/19/17 09:58 ; Admin Dose 5 MG; Start 04/09/17 at 09:00 Atorvastatin Calcium (Lipitor) 40 mg HS PO Last administered on 04/18/17 20: 45; Admin Dose 40 MG; Start 04/09/17 at 21:00 Cinacalcet (Sensipar) 30 mg BID PO Last administered on 04/19/17 09:57; Admin Dose 30 MG; Start 04/09/17 at 09:00 Clopidogrel Bisulfate (plaVIX) 75 mg DAILY PO Last administered on 04/19/17 09:58; Admin Dose 75 MG; Start 04/09/17 at 09:00 Diphenhydramine HCl (Benadryl) 25 mg Q6H PRN PO ITCHING Last administered on 14:07; Admin Dose 25 MG; Start 04/08/17 at 23:30 Carvedilol (Coreg) 3.125 mg BID PO Last administered on 04/19/17 09:57; Admin Dose 3.125 MG; Start 04/09/17 at 09:00 Aspirin (Aspirin) 81 mg DAILY PO Last administered on 04/19/17 09:58; Admin Dose 81 MG; Start 04/11/17 at 09:00 Morphine Sulfate (morphine) 2 mg Q4H PRN IV SEVERE PAIN LEVEL 7-10 Last administered on 04/19/17 10:19; Admin Dose 2 MG; Start 04/10/17 at 15:30 Lactobacillus Acidophilus (Florajen3 Capsule) 1 each BID PO Last administered on 04/19/17 09:58; Admin Dose 1 EACH; Start 04/11/17 at 14:30 Metronidazole (Flagyl) 500 mg Q8 PO Last administered on 04/19/17 05:34; Admin Dose 500 MG; Start 04/14/17 at 14:00 Losartan Potassium (Cozaar) 25 mg BID PO Last administered on 04/19/17 09:57 ; Admin Dose 25 MG; Start 04/16/17 at 09:30 Al Hydrox/Mg Hydrox/Simethicone (Mag-Al Plus) 30 ml Q6H PRN PO GASTROINTESTINAL UPSET Last administered on 04/18/17 18:11; Admin Dose 30 ML; Start 04/18/17 at 16:00 Epoetin Jorge Luis (Epogen (Esrd)) 4,000 units MoWeFr@17 SC Last administered on 18:56; Admin Dose 4,000 UNITS; Start 04/18/17 at 18:50 SHITAL MCKEON NP Apr 19, 2017 13:46
[2017-04-19 13:52] VITALS: BP 164/69; RESP 16
--- NOTE | 2017-04-19 17:06 | PN ---
Date/Time of Note Date/Time of Note DATE: 04/19/17 TIME: 17:04 Assessment/Plan VTE Prophylaxis VTE Prophylaxis Intervention: other Assessment/Plan Assessment/Plan -C. difficile colitis, continue vancomycin p.o. Dr. Tobias is following in infection disease consultation. -Non-ST [place], continue aspirin. allowing in cardiology consultation. -End-stage renal disease hemodialysis dependent. Dr. Wallace is following in nephrology consultation. Continue hemodialysis. - Possible PNA, continue abx. - Left foot gangrenous wounds - Severe peripheral vascular disease with severe infrapopliteal disease and pedal disease. - Hypertension. - CAD - Permanent Pacemaker. - Legally blind - Anemia of chronic disease. Further recommendations based on clinical course. Plan of care discussed with Dr. French Subjective 24 Hr Interval Summary Free Text/Dictation BS ELEVATED- 212- IVF with Dxtreose stopped, am BMP No new events reported overnight. HD yesterday- 2.5 removed Exam/Review of Systems Vital Signs Vitals Vital Signs Date Time Temp Pulse Resp B/P Pulse Ox O2 Delivery O2 Flow Rate FiO2 04/19/17 13:52 97.5 70 16 164/69 99 04/18/17 20:43 Room Air Intake and Output 04/18/17 04/18/17 04/19/17 15:00 23:00 07:00 Intake Total 950 ml 1390 ml Output Total 2500 ml Balance -1550 ml 1390 ml Results Result Diagram: 04/17/17 0535 04/17/17 0535 Medications Medications Current Medications Ondansetron HCl (Zofran Inj) 4 mg Q6H PRN IV NAUSEA AND/OR VOMITING; Start 04/08/17 at 23:30 Vancomycin HCl (Vancomycin Oral Syringe) 250 mg Q6 PO Last administered on t 12:31; Admin Dose 250 MG; Start 04/09/17 at 00:00 Acetaminophen (Tylenol Tab) 650 mg Q4H PRN PO PAIN AND OR ELEVATED TEMP; Start 04/08/17 at 23:30 Acetaminophen/ Hydrocodone Bitart ([place] (5/325)) 1 tab Q4H PRN PO PAIN LEVEL 4 -6 Last administered on 04/16/17 21:03; Admin Dose 1 TAB; Start 04/08/17 at 23 :30 Amlodipine Besylate (Norvasc) 5 mg BID PO Last administered on 04/19/17 09:58 ; Admin Dose 5 MG; Start 04/09/17 at 09:00 Atorvastatin Calcium (Lipitor) 40 mg HS PO Last administered on 04/18/17 20: 45; Admin Dose 40 MG; Start 04/09/17 at 21:00 Cinacalcet (Sensipar) 30 mg BID PO Last administered on 04/19/17 09:57; Admin Dose 30 MG; Start 04/09/17 at 09:00 Clopidogrel Bisulfate (plaVIX) 75 mg DAILY PO Last administered on 04/19/17 09:58; Admin Dose 75 MG; Start 04/09/17 at 09:00 Diphenhydramine HCl (Benadryl) 25 mg Q6H PRN PO ITCHING Last administered on 14:07; Admin Dose 25 MG; Start 04/08/17 at 23:30 Carvedilol (Coreg) 3.125 mg BID PO Last administered on 04/19/17 09:57; Admin Dose 3.125 MG; Start 04/09/17 at 09:00 Aspirin (Aspirin) 81 mg DAILY PO Last administered on 04/19/17 09:58; Admin Dose 81 MG; Start 04/11/17 at 09:00 Morphine Sulfate (morphine) 2 mg Q4H PRN IV SEVERE PAIN LEVEL 7-10 Last administered on 04/19/17 15:25; Admin Dose 2 MG; Start 04/10/17 at 15:30 Lactobacillus Acidophilus (Florajen3 Capsule) 1 each BID PO Last administered on 04/19/17 09:58; Admin Dose 1 EACH; Start 04/11/17 at 14:30 Metronidazole (Flagyl) 500 mg Q8 PO Last administered on 04/19/17 15:27; Admin Dose 500 MG; Start 04/14/17 at 14:00 Losartan Potassium (Cozaar) 25 mg BID PO Last administered on 04/19/17 09:57 ; Admin Dose 25 MG; Start 04/16/17 at 09:30 Al Hydrox/Mg Hydrox/Simethicone (Mag-Al Plus) 30 ml Q6H PRN PO GASTROINTESTINAL UPSET Last administered on 04/18/17 18:11; Admin Dose 30 ML; Start 04/18/17 at 16:00 Epoetin Jorge Luis (Epogen (Esrd)) 4,000 units MoWeFr@17 SC Last administered on t 18:56; Admin Dose 4,000 UNITS; Start 04/18/17 at 18:50 IHSAN SULLIVAN Apr 19, 2017 17:06
[2017-04-19] MEDS: ATORVASTATIN 40 MG TAB PO SCH (20:15)
[2017-04-19 20:38] VITALS: BP 165/74; RESP 18
[2017-04-20] MEDS: morphine 2 MG INJ IV PRN ×4 (01:49→19:49)
[2017-04-20 02:27] VITALS: BP 155/70; RESP 18
[2017-04-20] MEDS: metroNIDAZOLE 500 MG TAB PO SCH ×4 (06:00→21:47)
[2017-04-20] MEDS: VANCOMYCIN HCL 250 MG/5ML POSYG PO SCH ×5 (06:00→17:32)
[2017-04-20 08:27] VITALS: BP 164/75; RESP 16
[2017-04-20] MEDS: ASPIRIN 81 MG TAB PO SCH (09:30)
[2017-04-20] MEDS: CALCIUM ACETATE 667 MG CAP PO SCH ×3 (09:30→17:32)
[2017-04-20] MEDS: LOSARTAN 25 MG TAB PO SCH ×2 (09:30→21:45)
[2017-04-20] MEDS: CINACALCET 30 MG TAB PO SCH ×2 (09:30→21:44)
[2017-04-20] MEDS: CLOPIDOGREL 75 MG TAB PO SCH (09:30)
[2017-04-20] MEDS: AMLODIPINE 5 MG TAB PO SCH ×2 (09:30→21:45)
[2017-04-20] MEDS: L ACIDOPHIL/B LACTIS/B LONGUM CAPSULE PO SCH ×2 (09:31→21:44)
[2017-04-20] MEDS: SEVELAMER 800 MG TAB PO SCH ×3 (09:33→17:32)
[2017-04-20] MEDS: BALSAM PERU/CASTOR OIL 60 GM TUBE TOP SCH ×2 (09:34→21:48)
--- NOTE | 2017-04-20 11:34 | PN ---
Date/Time of Note Date/Time of Note DATE: 04/20/17 TIME: 11:33 Assessment/Plan VTE Prophylaxis VTE Prophylaxis Intervention: other Assessment/Plan Chief Complaint/Hosp Course 1)Abd Pain and Diarrhea, C. difficile colitis 2)Elevated troponin, CAD 3)End-stage renal disease hemodialysis dependent 4)Hyperkalemia 5)Left foot gangrenous wounds 6)Severe peripheral vascular disease with severe infrapopliteal disease and pedal disease. 7)Hypertension. 8)CAD 9)Permanent Pacemaker. 10)Legally blind 11)Anemia of chronic disease 12)Possible Pna vs Edema [id number] improving loose bm hd mwf [id number] supportive care cont plan Problems: Exam/Review of Systems Vital Signs Vitals Vital Signs Date Time Temp Pulse Resp B/P Pulse Ox O2 Delivery O2 Flow Rate FiO2 04/20/17 08:27 97.7 70 16 164/75 96 04/18/17 20:43 Room Air Intake and Output 04/19/17 04/19/17 04/20/17 14:59 22:59 06:59 Intake Total 0 ml 1680 ml Balance 0 ml 1680 ml Exam Constitutional: alert, oriented Psych: nl mood/affect, no complaints Head: normocephalic Eyes: nl conjunctiva ENMT: nl external ears & nose Neck: supple Respiratory: clear to auscultation, normal air movement Cardiovascular: nl pulses, regular rate and rhythm Gastrointestinal: nl liver, spleen, soft Results Result Diagram: 04/17/17 0535 04/17/17 0535 Medications Medications Current Medications Ondansetron HCl (Zofran Inj) 4 mg Q6H PRN IV NAUSEA AND/OR VOMITING; Start 04/08/17 at 23:30 Vancomycin HCl (Vancomycin Oral Syringe) 250 mg Q6 PO Last administered on t 12:31; Admin Dose 250 MG; Start 04/09/17 at 00:00 Acetaminophen (Tylenol Tab) 650 mg Q4H PRN PO PAIN AND OR ELEVATED TEMP; Start 04/08/17 at 23:30 Acetaminophen/ Hydrocodone Bitart ([place] (5/325)) 1 tab Q4H PRN PO PAIN LEVEL 4 -6 Last administered on 04/16/17 21:03; Admin Dose 1 TAB; Start 04/08/17 at 23 :30 Amlodipine Besylate (Norvasc) 5 mg BID PO Last administered on 04/20/17 09:30 ; Admin Dose 5 MG; Start 04/09/17 at 09:00 Atorvastatin Calcium (Lipitor) 40 mg HS PO Last administered on 04/19/17 20: 15; Admin Dose 40 MG; Start 04/09/17 at 21:00 Cinacalcet (Sensipar) 30 mg BID PO Last administered on 04/20/17 09:30; Admin Dose 30 MG; Start 04/09/17 at 09:00 Clopidogrel Bisulfate (plaVIX) 75 mg DAILY PO Last administered on 04/20/17 09:30; Admin Dose 75 MG; Start 04/09/17 at 09:00 Diphenhydramine HCl (Benadryl) 25 mg Q6H PRN PO ITCHING Last administered on 14:07; Admin Dose 25 MG; Start 04/08/17 at 23:30 Carvedilol (Coreg) 3.125 mg BID PO Last administered on 04/20/17 09:29; Admin Dose 3.125 MG; Start 04/09/17 at 09:00 Aspirin (Aspirin) 81 mg DAILY PO Last administered on 04/20/17 09:30; Admin Dose 81 MG; Start 04/11/17 at 09:00 Morphine Sulfate (morphine) 2 mg Q4H PRN IV SEVERE PAIN LEVEL 7-10 Last administered on 04/20/17 09:06; Admin Dose 2 MG; Start 04/10/17 at 15:30 Lactobacillus Acidophilus (Florajen3 Capsule) 1 each BID PO Last administered on 04/20/17 09:31; Admin Dose 1 EACH; Start 04/11/17 at 14:30 Metronidazole (Flagyl) 500 mg Q8 PO Last administered on 04/19/17 15:27; Admin Dose 500 MG; Start 04/14/17 at 14:00 Losartan Potassium (Cozaar) 25 mg BID PO Last administered on 04/20/17 09:30 ; Admin Dose 25 MG; Start 04/16/17 at 09:30 Al Hydrox/Mg Hydrox/Simethicone (Mag-Al Plus) 30 ml Q6H PRN PO GASTROINTESTINAL UPSET Last administered on 04/18/17 18:11; Admin Dose 30 ML; Start 04/18/17 at 16:00 Epoetin Jorge Luis (Epogen (Esrd)) 4,000 units MoWeFr@17 SC Last administered on t 18:56; Admin Dose 4,000 UNITS; Start 04/18/17 at 18:50 RENÉE KENNEDY MD Apr 20, 2017 11:34
[2017-04-20 14:22] VITALS: BP 161/71; RESP 18
--- NOTE | 2017-04-20 15:47 | PN ---
Date/Time of Note Date/Time of Note DATE: 04/20/17 TIME: 15:46 Assessment/Plan VTE Prophylaxis VTE Prophylaxis Intervention: other Assessment/Plan Assessment/Plan -C. difficile colitis, continue vancomycin p.o. Dr. Tobias is following in infection disease consultation. -Non-ST [place], continue aspirin. allowing in cardiology consultation. -End-stage renal disease hemodialysis dependent. Dr. Wallace is following in nephrology consultation. Continue hemodialysis. - Possible PNA, continue abx. - Left foot gangrenous wounds - Severe peripheral vascular disease with severe infrapopliteal disease and pedal disease. - Hypertension. - CAD - Permanent Pacemaker. - Legally blind - Anemia of chronic disease. Further recommendations based on clinical course. Plan of care discussed with Dr. French Subjective 24 Hr Interval Summary Free Text/Dictation had home made lunch - at bed side - noevents overnight - afebrile Exam/Review of Systems Vital Signs Vitals Vital Signs Date Time Temp Pulse Resp B/P Pulse Ox O2 Delivery O2 Flow Rate FiO2 04/20/17 14:22 97.8 70 18 161/71 95 04/18/17 20:43 Room Air Intake and Output 04/19/17 04/19/17 04/20/17 15:00 23:00 07:00 Intake Total 0 ml 1680 ml Balance 0 ml 1680 ml Exam Constitutional: alert Results Result Diagram: 04/17/17 0535 04/17/17 0535 Medications Medications Current Medications Ondansetron HCl (Zofran Inj) 4 mg Q6H PRN IV NAUSEA AND/OR VOMITING; Start 04/08/17 at 23:30 Vancomycin HCl (Vancomycin Oral Syringe) 250 mg Q6 PO Last administered on 12:31; Admin Dose 250 MG; Start 04/09/17 at 00:00 Acetaminophen (Tylenol Tab) 650 mg Q4H PRN PO PAIN AND OR ELEVATED TEMP; Start 04/08/17 at 23:30 Acetaminophen/ Hydrocodone Bitart ([place] (5/325)) 1 tab Q4H PRN PO PAIN LEVEL 4 -6 Last administered on 04/16/17 21:03; Admin Dose 1 TAB; Start 04/08/17 at 23 :30 Amlodipine Besylate (Norvasc) 5 mg BID PO Last administered on 04/20/17 09:30 ; Admin Dose 5 MG; Start 04/09/17 at 09:00 Atorvastatin Calcium (Lipitor) 40 mg HS PO Last administered on 04/19/17 20: 15; Admin Dose 40 MG; Start 04/09/17 at 21:00 Cinacalcet (Sensipar) 30 mg BID PO Last administered on 04/20/17 09:30; Admin Dose 30 MG; Start 04/09/17 at 09:00 Clopidogrel Bisulfate (plaVIX) 75 mg DAILY PO Last administered on 04/20/17 09:30; Admin Dose 75 MG; Start 04/09/17 at 09:00 Diphenhydramine HCl (Benadryl) 25 mg Q6H PRN PO ITCHING Last administered on 14:07; Admin Dose 25 MG; Start 04/08/17 at 23:30 Carvedilol (Coreg) 3.125 mg BID PO Last administered on 04/20/17 09:29; Admin Dose 3.125 MG; Start 04/09/17 at 09:00 Aspirin (Aspirin) 81 mg DAILY PO Last administered on 04/20/17 09:30; Admin Dose 81 MG; Start 04/11/17 at 09:00 Morphine Sulfate (morphine) 2 mg Q4H PRN IV SEVERE PAIN LEVEL 7-10 Last administered on 04/20/17 15:26; Admin Dose 2 MG; Start 04/10/17 at 15:30 Lactobacillus Acidophilus (Florajen3 Capsule) 1 each BID PO Last administered on 04/20/17 09:31; Admin Dose 1 EACH; Start 04/11/17 at 14:30 Metronidazole (Flagyl) 500 mg Q8 PO Last administered on 04/19/17 15:27; Admin Dose 500 MG; Start 04/14/17 at 14:00 Losartan Potassium (Cozaar) 25 mg BID PO Last administered on 04/20/17 09:30 ; Admin Dose 25 MG; Start 04/16/17 at 09:30 Al Hydrox/Mg Hydrox/Simethicone (Mag-Al Plus) 30 ml Q6H PRN PO GASTROINTESTINAL UPSET Last administered on 04/18/17 18:11; Admin Dose 30 ML; Start 04/18/17 at 16:00 Epoetin Jorge Luis (Epogen (Esrd)) 4,000 units MoWeFr@17 SC Last administered on t 18:56; Admin Dose 4,000 UNITS; Start 04/18/17 at 18:50 IHSAN SULLIVAN Apr 20, 2017 15:47
--- NOTE | 2017-04-20 16:13 | CONS ---
Date/Time of Note Date/Time of Note DATE: 04/20/17 TIME: 16:11 Consultation Date/Type/Reason Admit Date/Time Apr 08, 2017 at 21:31 Initial Consult Date SUBJECTIVE: Patient is awake, alert. Denies fevers, chills. Currently being treated for Lt foot gangreen and C.diff. VS: 161/71 P:70 R:18 T:97.8 SO2:95% LABS: none for today. MICROBIOLOGY: Blood cultures negative. INDWELLINGS: The patient has AV fistula. ANTIMICROBIALS: Vancomycin PO. PHYSICAL EXAMINATION: GENERAL: This is a chronically ill-appearing, fragile, elderly man who is awake , in no distress. HEENT: Head atraumatic, normocephalic. Sclerae anicteric. Buccal mucosa dry. NECK: Supple. CHEST: Rise symmetrical. Breath sounds diminished to bases. HEART: S1, S2. ABDOMEN: Soft, bowel tones present. EXTREMITIES: Left foot gangrene. ASSESSMENT: 1. Systemic inflammatory response syndrome. 2. Clostridium difficile colitis. 3. Left foot dry gangrene. 4. End-stage renal disease. 5. Anemia. 6. Severe peripheral arterial and vascular disease. 7. History of permanent pacemaker placement. PLAN: Pt is stable. Continue abx to complete 2 weeks. Pain management, vascular recommendations, HD per renal. Type of Consultation: ID Referring Provider: POLY THRASHER MD Exam/Review of Systems Vital Signs Vitals Vital Signs Date Time Temp Pulse Resp B/P Pulse Ox O2 Delivery O2 Flow Rate FiO2 04/20/17 14:22 97.8 70 18 161/71 95 04/18/17 20:43 Room Air Intake and Output 04/19/17 04/19/17 04/20/17 15:00 23:00 07:00 Intake Total 0 ml 1680 ml Balance 0 ml 1680 ml Results Result Diagram: 04/17/17 0535 04/17/17 0535 Medications Medications Current Medications Ondansetron HCl (Zofran Inj) 4 mg Q6H PRN IV NAUSEA AND/OR VOMITING; Start 04/08/17 at 23:30 Vancomycin HCl (Vancomycin Oral Syringe) 250 mg Q6 PO Last administered on t 12:31; Admin Dose 250 MG; Start 04/09/17 at 00:00 Acetaminophen (Tylenol Tab) 650 mg Q4H PRN PO PAIN AND OR ELEVATED TEMP; Start 04/08/17 at 23:30 Acetaminophen/ Hydrocodone Bitart ([place] (5/325)) 1 tab Q4H PRN PO PAIN LEVEL 4 -6 Last administered on 04/16/17 21:03; Admin Dose 1 TAB; Start 04/08/17 at 23 :30 Amlodipine Besylate (Norvasc) 5 mg BID PO Last administered on 04/20/17 09:30 ; Admin Dose 5 MG; Start 04/09/17 at 09:00 Atorvastatin Calcium (Lipitor) 40 mg HS PO Last administered on 04/19/17 20: 15; Admin Dose 40 MG; Start 04/09/17 at 21:00 Cinacalcet (Sensipar) 30 mg BID PO Last administered on 04/20/17 09:30; Admin Dose 30 MG; Start 04/09/17 at 09:00 Clopidogrel Bisulfate (plaVIX) 75 mg DAILY PO Last administered on 04/20/17 09:30; Admin Dose 75 MG; Start 04/09/17 at 09:00 Diphenhydramine HCl (Benadryl) 25 mg Q6H PRN PO ITCHING Last administered on 14:07; Admin Dose 25 MG; Start 04/08/17 at 23:30 Carvedilol (Coreg) 3.125 mg BID PO Last administered on 04/20/17 09:29; Admin Dose 3.125 MG; Start 04/09/17 at 09:00 Aspirin (Aspirin) 81 mg DAILY PO Last administered on 04/20/17 09:30; Admin Dose 81 MG; Start 04/11/17 at 09:00 Morphine Sulfate (morphine) 2 mg Q4H PRN IV SEVERE PAIN LEVEL 7-10 Last administered on 04/20/17 15:26; Admin Dose 2 MG; Start 04/10/17 at 15:30 Lactobacillus Acidophilus (Florajen3 Capsule) 1 each BID PO Last administered on 04/20/17 09:31; Admin Dose 1 EACH; Start 04/11/17 at 14:30 Metronidazole (Flagyl) 500 mg Q8 PO Last administered on 04/19/17 15:27; Admin Dose 500 MG; Start 04/14/17 at 14:00 Losartan Potassium (Cozaar) 25 mg BID PO Last administered on 04/20/17 09:30 ; Admin Dose 25 MG; Start 04/16/17 at 09:30 Al Hydrox/Mg Hydrox/Simethicone (Mag-Al Plus) 30 ml Q6H PRN PO GASTROINTESTINAL UPSET Last administered on 04/18/17 18:11; Admin Dose 30 ML; Start 04/18/17 at 16:00 Epoetin Jorge Luis (Epogen (Esrd)) 4,000 units MoWeFr@17 SC Last administered on 18:56; Admin Dose 4,000 UNITS; Start 04/18/17 at 18:50 SKYLER MUSE Apr 20, 2017 16:13
[2017-04-20 20:06] VITALS: BP 154/70; RESP 20
[2017-04-20] MEDS: ATORVASTATIN 40 MG TAB PO SCH (21:44)
[2017-04-20] MEDS: HYDROCODONE/APAP (5/325) TAB PO PRN (21:45)
[2017-04-21] VITALS (11 sets, daily range): BP systolic 90–156; BP diastolic 42–96; PULSE 65–71; RESP 16–18
[2017-04-21] MEDS: morphine 2 MG INJ IV PRN ×5 (01:06→21:19)
[2017-04-21] MEDS: HYDROCODONE/APAP (5/325) TAB PO PRN (03:51)
[2017-04-21] MEDS: metroNIDAZOLE 500 MG TAB PO SCH ×3 (05:19→21:19)
[2017-04-21] MEDS: VANCOMYCIN HCL 250 MG/5ML POSYG PO SCH ×4 (05:19→17:18)
[2017-04-21] MEDS: CINACALCET 30 MG TAB PO SCH ×2 (08:57→21:18)
[2017-04-21] MEDS: L ACIDOPHIL/B LACTIS/B LONGUM CAPSULE PO SCH ×2 (08:57→21:18)
[2017-04-21] MEDS: ASPIRIN 81 MG TAB PO SCH (08:57)
[2017-04-21] MEDS: SEVELAMER 800 MG TAB PO SCH ×3 (08:57→17:18)
[2017-04-21] MEDS: CLOPIDOGREL 75 MG TAB PO SCH (08:57)
[2017-04-21] MEDS: CALCIUM ACETATE 667 MG CAP PO SCH ×3 (08:57→17:18)
[2017-04-21] MEDS: BALSAM PERU/CASTOR OIL 60 GM TUBE TOP SCH ×2 (08:58→21:18)
[2017-04-21] MEDS: LOSARTAN 25 MG TAB PO SCH ×2 (09:00→21:18)
[2017-04-21] MEDS: AMLODIPINE 5 MG TAB PO SCH ×2 (09:00→21:18)
--- NOTE | 2017-04-21 13:46 | CONS ---
Date/Time of Note Date/Time of Note DATE: 04/21/17 TIME: 13:44 Assessment/Plan Assessment/Plan Additional Assessment/Plan 61 yo male with 1)Abd Pain and Diarrhea, C. difficile colitis 2)Elevated troponin, CAD 3)End-stage renal disease hemodialysis dependent 4)Hyperkalemia 5)Left foot gangrenous wounds 6)Severe peripheral vascular disease with severe infrapopliteal disease and pedal disease. 7)Hypertension. 8)CAD 9)Permanent Pacemaker. 10)Legally blind 11)Anemia of chronic disease 12)Possible Pna vs Edema S/p HD MWF Epogen with HD BP elevated, UF with HD, monitor BP Cont Coreg, Norvac and Losartan thank you for the opportunity to participate in the care of Mr Thibodeaux. Consultation Date/Type/Reason Admit Date/Time Apr 08, 2017 at 21:31 Initial Consult Date 04/10/17 Type of Consultation: Renal Referring Provider: POLY THRASHER MD 24 HR Interval Summary Free Text/Dictation no new complaints, S/p HD Constitutional: No requiring O2 Exam/Review of Systems Vital Signs Vitals Vital Signs Date Time Temp Pulse Resp B/P Pulse Ox O2 Delivery O2 Flow Rate FiO2 04/21/17 07:28 97.5 70 16 112/96 96 04/18/17 20:43 Room Air Intake and Output 04/20/17 04/20/17 04/21/17 15:00 23:00 07:00 Intake Total 0 ml 840 ml 160 ml Balance 0 ml 840 ml 160 ml Exam Constitutional: No distress ENMT: mucosa pink and moist Respiratory: clear to auscultation Cardiovascular: regular rate and rhythm, No edema Gastrointestinal: soft Extremities: No edema Neurological: SU[employer]OR COL[employer] PASTE MIXING II-XII intact Results Result Diagram: 04/17/17 0535 04/17/17 0535 Medications Medications Current Medications Ondansetron HCl (Zofran Inj) 4 mg Q6H PRN IV NAUSEA AND/OR VOMITING; Start 04/08/17 at 23:30 Vancomycin HCl (Vancomycin Oral Syringe) 250 mg Q6 PO Last administered on t 12:31; Admin Dose 250 MG; Start 04/09/17 at 00:00 Acetaminophen (Tylenol Tab) 650 mg Q4H PRN PO PAIN AND OR ELEVATED TEMP; Start 04/08/17 at 23:30 Acetaminophen/ Hydrocodone Bitart ([place] (5/325)) 1 tab Q4H PRN PO PAIN LEVEL 4 -6 Last administered on 04/21/17 03:51; Admin Dose 1 TAB; Start 04/08/17 at 23 :30 Amlodipine Besylate (Norvasc) 5 mg BID PO Last administered on 04/20/17 21:45 ; Admin Dose 5 MG; Start 04/09/17 at 09:00 Atorvastatin Calcium (Lipitor) 40 mg HS PO Last administered on 04/20/17 21: 44; Admin Dose 40 MG; Start 04/09/17 at 21:00 Cinacalcet (Sensipar) 30 mg BID PO Last administered on 04/21/17 08:57; Admin Dose 30 MG; Start 04/09/17 at 09:00 Clopidogrel Bisulfate (plaVIX) 75 mg DAILY PO Last administered on 04/21/17 08:57; Admin Dose 75 MG; Start 04/09/17 at 09:00 Diphenhydramine HCl (Benadryl) 25 mg Q6H PRN PO ITCHING Last administered on 14:07; Admin Dose 25 MG; Start 04/08/17 at 23:30 Carvedilol (Coreg) 3.125 mg BID PO Last administered on 04/20/17 21:46; Admin Dose 3.125 MG; Start 04/09/17 at 09:00 Aspirin (Aspirin) 81 mg DAILY PO Last administered on 04/21/17 08:57; Admin Dose 81 MG; Start 04/11/17 at 09:00 Morphine Sulfate (morphine) 2 mg Q4H PRN IV SEVERE PAIN LEVEL 7-10 Last administered on 04/21/17 12:00; Admin Dose 2 MG; Start 04/10/17 at 15:30 Lactobacillus Acidophilus (Florajen3 Capsule) 1 each BID PO Last administered on 04/21/17 08:57; Admin Dose 1 EACH; Start 04/11/17 at 14:30 Metronidazole (Flagyl) 500 mg Q8 PO Last administered on 04/19/17 15:27; Admin Dose 500 MG; Start 04/14/17 at 14:00 Losartan Potassium (Cozaar) 25 mg BID PO Last administered on 04/20/17 21:45 ; Admin Dose 25 MG; Start 04/16/17 at 09:30 Al Hydrox/Mg Hydrox/Simethicone (Mag-Al Plus) 30 ml Q6H PRN PO GASTROINTESTINAL UPSET Last administered on 04/18/17 18:11; Admin Dose 30 ML; Start 04/18/17 at 16:00 Epoetin Jorge Luis (Epogen (Esrd)) 4,000 units MoWeFr@17 SC Last administered on 18:56; Admin Dose 4,000 UNITS; Start 04/18/17 at 18:50 PIPER FELIX MD Apr 21, 2017 13:46
--- NOTE | 2017-04-21 14:36 | CONS ---
Date/Time of Note Date/Time of Note DATE: 04/21/17 TIME: 14:34 Assessment/Plan Assessment/Plan Chief Complaint/Hosp Course SUBJECTIVE: Awake complaining of left lower extremity pain, no fevers, diarrhea resolved MICROBIOLOGY: Blood cultures negative. INDWELLINGS: The patient has AV fistula. ANTIMICROBIALS: Vancomycin PO, Flagyl PHYSICAL EXAMINATION: GENERAL: This is a chronically ill-appearing, fragile, elderly man who is awake , in no distress. HEENT: Head atraumatic, normocephalic. Sclerae anicteric. Buccal mucosa dry. NECK: Supple. CHEST: Rise symmetrical. Breath sounds diminished to bases. HEART: S1, S2. ABDOMEN: Soft, bowel tones present. EXTREMITIES: Left foot gangrene. ASSESSMENT: 1. Systemic inflammatory response syndrome. 2. Clostridium difficile colitis. 3. 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 4. End-stage renal disease. 5. Anemia. 6. Severe peripheral arterial and vascular disease. 7. History of permanent pacemaker placement. PLAN: Remains unchanged, still with significant lower extremity pain, completing antibiotics for C. difficile, vascular team on case no surgical intervention recommended, continue pain management and supportive care DW staff Problems: Consultation Date/Type/Reason Admit Date/Time Apr 08, 2017 at 21:31 Initial Consult Date 04/10/17 Type of Consultation: id Referring Provider: POLY THRASHER MD Exam/Review of Systems Vital Signs Vitals Vital Signs Date Time Temp Pulse Resp B/P Pulse Ox O2 Delivery O2 Flow Rate FiO2 04/21/17 14:31 97.4 75 18 106/59 94 04/18/17 20:43 Room Air Intake and Output 04/20/17 04/20/17 04/21/17 15:00 23:00 07:00 Intake Total 0 ml 840 ml 160 ml Balance 0 ml 840 ml 160 ml Results Result Diagram: 04/17/17 0535 04/17/17 0535 Medications Medications Current Medications Ondansetron HCl (Zofran Inj) 4 mg Q6H PRN IV NAUSEA AND/OR VOMITING; Start 04/08/17 at 23:30 Vancomycin HCl (Vancomycin Oral Syringe) 250 mg Q6 PO Last administered on t 12:31; Admin Dose 250 MG; Start 04/09/17 at 00:00 Acetaminophen (Tylenol Tab) 650 mg Q4H PRN PO PAIN AND OR ELEVATED TEMP; Start 04/08/17 at 23:30 Acetaminophen/ Hydrocodone Bitart ([place] (5/325)) 1 tab Q4H PRN PO PAIN LEVEL 4 -6 Last administered on 04/21/17 03:51; Admin Dose 1 TAB; Start 04/08/17 at 23 :30 Amlodipine Besylate (Norvasc) 5 mg BID PO Last administered on 04/20/17 21:45 ; Admin Dose 5 MG; Start 04/09/17 at 09:00 Atorvastatin Calcium (Lipitor) 40 mg HS PO Last administered on 04/20/17 21: 44; Admin Dose 40 MG; Start 04/09/17 at 21:00 Cinacalcet (Sensipar) 30 mg BID PO Last administered on 04/21/17 08:57; Admin Dose 30 MG; Start 04/09/17 at 09:00 Clopidogrel Bisulfate (plaVIX) 75 mg DAILY PO Last administered on 04/21/17 08:57; Admin Dose 75 MG; Start 04/09/17 at 09:00 Diphenhydramine HCl (Benadryl) 25 mg Q6H PRN PO ITCHING Last administered on 14:07; Admin Dose 25 MG; Start 04/08/17 at 23:30 Carvedilol (Coreg) 3.125 mg BID PO Last administered on 04/20/17 21:46; Admin Dose 3.125 MG; Start 04/09/17 at 09:00 Aspirin (Aspirin) 81 mg DAILY PO Last administered on 04/21/17 08:57; Admin Dose 81 MG; Start 04/11/17 at 09:00 Morphine Sulfate (morphine) 2 mg Q4H PRN IV SEVERE PAIN LEVEL 7-10 Last administered on 04/21/17 12:00; Admin Dose 2 MG; Start 04/10/17 at 15:30 Lactobacillus Acidophilus (Florajen3 Capsule) 1 each BID PO Last administered on 04/21/17 08:57; Admin Dose 1 EACH; Start 04/11/17 at 14:30 Metronidazole (Flagyl) 500 mg Q8 PO Last administered on 04/19/17 15:27; Admin Dose 500 MG; Start 04/14/17 at 14:00 Losartan Potassium (Cozaar) 25 mg BID PO Last administered on 04/20/17 21:45 ; Admin Dose 25 MG; Start 04/16/17 at 09:30 Al Hydrox/Mg Hydrox/Simethicone (Mag-Al Plus) 30 ml Q6H PRN PO GASTROINTESTINAL UPSET Last administered on 04/18/17 18:11; Admin Dose 30 ML; Start 04/18/17 at 16:00 Epoetin Jorge Luis (Epogen (Esrd)) 4,000 units MoWeFr@17 SC Last administered on 18:56; Admin Dose 4,000 UNITS; Start 04/18/17 at 18:50 SHITAL MCKEON NP Apr 21, 2017 14:36
--- NOTE | 2017-04-21 14:39 | PN ---
Date/Time of Note Date/Time of Note DATE: 04/21/17 TIME: 14:37 Assessment/Plan VTE Prophylaxis VTE Prophylaxis Intervention: heparin Lines/Catheters IV Catheter Type (from Nrsg): Saline Lock Assessment/Plan Chief Complaint/Hosp Course Patient is status post hemodialysis today, no diarrhea. DC planning. Patient is blind with multiple comorbidities, dialysis, and wounds, needs [facility] Assessment/Plan -C. difficile colitis, continue vancomycin p.o. Dr. Tobias is following in infection disease consultation. -Non-ST IA, continue aspirin. allowing in cardiology consultation. -End-stage renal disease hemodialysis dependent. Dr. Wallace is following in nephrology consultation. Continue hemodialysis. - Possible PNA, continue abx. - Left foot gangrenous wounds - Severe peripheral vascular disease with severe infrapopliteal disease and pedal disease. - Hypertension. - CAD - Permanent Pacemaker. - Legally blind - Anemia of chronic disease. Further recommendations based on clinical course. Plan of care discussed with Dr. French Problems: Exam/Review of Systems Vital Signs Vitals Vital Signs Date Time Temp Pulse Resp B/P Pulse Ox O2 Delivery O2 Flow Rate FiO2 04/21/17 14:31 97.4 75 18 106/59 94 04/18/17 20:43 Room Air Intake and Output 04/20/17 04/20/17 04/21/17 15:00 23:00 07:00 Intake Total 0 ml 840 ml 160 ml Balance 0 ml 840 ml 160 ml Exam Constitutional: alert, oriented Eyes: other (Blind) Respiratory: diminished breath sounds Cardiovascular: other (Paced rhythm) Gastrointestinal: soft, tender Extremities: normal pulses, other (Bilateral feet gangrene) Results Result Diagram: 04/17/17 0535 04/17/17 0535 Medications Medications Current Medications Ondansetron HCl (Zofran Inj) 4 mg Q6H PRN IV NAUSEA AND/OR VOMITING; Start 04/08/17 at 23:30 Vancomycin HCl (Vancomycin Oral Syringe) 250 mg Q6 PO Last administered on t 12:31; Admin Dose 250 MG; Start 04/09/17 at 00:00 Acetaminophen (Tylenol Tab) 650 mg Q4H PRN PO PAIN AND OR ELEVATED TEMP; Start 04/08/17 at 23:30 Acetaminophen/ Hydrocodone Bitart ([place] (5/325)) 1 tab Q4H PRN PO PAIN LEVEL 4 -6 Last administered on 04/21/17 03:51; Admin Dose 1 TAB; Start 04/08/17 at 23 :30 Amlodipine Besylate (Norvasc) 5 mg BID PO Last administered on 04/20/17 21:45 ; Admin Dose 5 MG; Start 04/09/17 at 09:00 Atorvastatin Calcium (Lipitor) 40 mg HS PO Last administered on 04/20/17 21: 44; Admin Dose 40 MG; Start 04/09/17 at 21:00 Cinacalcet (Sensipar) 30 mg BID PO Last administered on 04/21/17 08:57; Admin Dose 30 MG; Start 04/09/17 at 09:00 Clopidogrel Bisulfate (plaVIX) 75 mg DAILY PO Last administered on 04/21/17 08:57; Admin Dose 75 MG; Start 04/09/17 at 09:00 Diphenhydramine HCl (Benadryl) 25 mg Q6H PRN PO ITCHING Last administered on 14:07; Admin Dose 25 MG; Start 04/08/17 at 23:30 Carvedilol (Coreg) 3.125 mg BID PO Last administered on 04/20/17 21:46; Admin Dose 3.125 MG; Start 04/09/17 at 09:00 Aspirin (Aspirin) 81 mg DAILY PO Last administered on 04/21/17 08:57; Admin Dose 81 MG; Start 04/11/17 at 09:00 Morphine Sulfate (morphine) 2 mg Q4H PRN IV SEVERE PAIN LEVEL 7-10 Last administered on 04/21/17 12:00; Admin Dose 2 MG; Start 04/10/17 at 15:30 Lactobacillus Acidophilus (Florajen3 Capsule) 1 each BID PO Last administered on 04/21/17 08:57; Admin Dose 1 EACH; Start 04/11/17 at 14:30 Metronidazole (Flagyl) 500 mg Q8 PO Last administered on 04/19/17 15:27; Admin Dose 500 MG; Start 04/14/17 at 14:00 Losartan Potassium (Cozaar) 25 mg BID PO Last administered on 04/20/17 21:45 ; Admin Dose 25 MG; Start 04/16/17 at 09:30 Al Hydrox/Mg Hydrox/Simethicone (Mag-Al Plus) 30 ml Q6H PRN PO GASTROINTESTINAL UPSET Last administered on 04/18/17 18:11; Admin Dose 30 ML; Start 04/18/17 at 16:00 Epoetin Jorge Luis (Epogen (Esrd)) 4,000 units MoWeFr@17 SC Last administered on 18:56; Admin Dose 4,000 UNITS; Start 04/18/17 at 18:50 VIV KING Apr 21, 2017 14:39
[2017-04-21] MEDS ORDERED: EPOETIN 4000 UNITS/1 ML INJ (ESRD) SC SCH (17:00)
[2017-04-21] MEDS: EPOETIN 4000 UNITS/1 ML INJ (ESRD) SC SCH (17:17)
--- NOTE | 2017-04-21 18:20 | CONS ---
Date/Time of Note Date/Time of Note DATE: 04/21/17 TIME: 18:19 Consult Date/Type/Reason Admit Date/Time Apr 08, 2017 at 21:31 Initial Consult Date 04/10/17 Type of Consultation: card Ordering Provider: POLY THRASHER MD Subjective Cardiology follow-up progress note (on behalf of Dr.Leo Barr) S: Discussed with staff and his at the bedside pt denies any chest pain or pressure to me at this point. He still has foot pain but better right now. he denies PND orthopnea O: General: no acute distress HEENT: NC/AT. eyes are blind NECK: NO JVD. no stridor. CV: RRR. systolic murmur; no gallop or rubs. PULM: +_ rhonchi. GI: SOFT, NT, ND, no rebound or guarding Extremity: + necrotic/GANGRENE toes/foot neuro: awake and alert, Psych: calm and pleasant rectal: deferred ECG: Normal sinus rhythm. ST-T wave abnormality consistent with inferolateral ischemia Objective Vital Signs Date Time Temp Pulse Resp B/P Pulse Ox O2 Delivery O2 Flow Rate FiO2 04/21/17 14:31 97.4 75 18 106/59 94 04/18/17 20:43 Room Air Intake and Output 04/20/17 04/20/17 04/21/17 14:59 22:59 06:59 Intake Total 0 ml 840 ml 160 ml Balance 0 ml 840 ml 160 ml Results/Medications Result Diagram: 04/17/17 0535 04/17/17 0535 Medications Current Medications Ondansetron HCl (Zofran Inj) 4 mg Q6H PRN IV NAUSEA AND/OR VOMITING; Start 04/08/17 at 23:30 Vancomycin HCl (Vancomycin Oral Syringe) 250 mg Q6 PO Last administered on 12:31; Admin Dose 250 MG; Start 04/09/17 at 00:00 Acetaminophen (Tylenol Tab) 650 mg Q4H PRN PO PAIN AND OR ELEVATED TEMP; Start 04/08/17 at 23:30 Acetaminophen/ Hydrocodone Bitart ([place] (5/325)) 1 tab Q4H PRN PO PAIN LEVEL 4 -6 Last administered on 04/21/17 03:51; Admin Dose 1 TAB; Start 04/08/17 at 23 :30 Amlodipine Besylate (Norvasc) 5 mg BID PO Last administered on 04/20/17 21:45 ; Admin Dose 5 MG; Start 04/09/17 at 09:00 Atorvastatin Calcium (Lipitor) 40 mg HS PO Last administered on 04/20/17 21: 44; Admin Dose 40 MG; Start 04/09/17 at 21:00 Cinacalcet (Sensipar) 30 mg BID PO Last administered on 04/21/17 08:57; Admin Dose 30 MG; Start 04/09/17 at 09:00 Clopidogrel Bisulfate (plaVIX) 75 mg DAILY PO Last administered on 04/21/17 08:57; Admin Dose 75 MG; Start 04/09/17 at 09:00 Diphenhydramine HCl (Benadryl) 25 mg Q6H PRN PO ITCHING Last administered on 14:07; Admin Dose 25 MG; Start 04/08/17 at 23:30 Carvedilol (Coreg) 3.125 mg BID PO Last administered on 04/20/17 21:46; Admin Dose 3.125 MG; Start 04/09/17 at 09:00 Aspirin (Aspirin) 81 mg DAILY PO Last administered on 04/21/17 08:57; Admin Dose 81 MG; Start 04/11/17 at 09:00 Morphine Sulfate (morphine) 2 mg Q4H PRN IV SEVERE PAIN LEVEL 7-10 Last administered on 04/21/17 17:15; Admin Dose 2 MG; Start 04/10/17 at 15:30 Lactobacillus Acidophilus (Florajen3 Capsule) 1 each BID PO Last administered on 04/21/17 08:57; Admin Dose 1 EACH; Start 04/11/17 at 14:30 Metronidazole (Flagyl) 500 mg Q8 PO Last administered on 04/19/17 15:27; Admin Dose 500 MG; Start 04/14/17 at 14:00 Losartan Potassium (Cozaar) 25 mg BID PO Last administered on 04/20/17 21:45 ; Admin Dose 25 MG; Start 04/16/17 at 09:30 Al Hydrox/Mg Hydrox/Simethicone (Mag-Al Plus) 30 ml Q6H PRN PO GASTROINTESTINAL UPSET Last administered on 04/18/17 18:11; Admin Dose 30 ML; Start 04/18/17 at 16:00 Epoetin Jorge Luis (Epogen (Esrd)) 4,000 units MoWeFr@17 SC Last administered on 17:17; Admin Dose 4,000 UNITS; Start 04/18/17 at 18:50 Assessment/Plan Chief Complaint/Hosp Course 1. Non-ST elevation myocardial infarction 2. End-stage renal disease on hemodialysis 3. Severe peripheral vascular disease 4. Gangrene of toe/foot 5. Diabetes 6. Dyslipidemia 7. Congestive heart failure: EF 40% 8. Severe and worsening anemia 9. Known severe coronary artery disease including calcified left main disease 10. Ischemic cardiomyopathy Recommendations: I will CONT aspirin to 81 mg. I will cont ARB Potassium management through the dialysis will be done. We cont to manage the patient with continued and aggressive medical therapy as much as possible. Antibiotic will be managed as per internal medicine IDs recommendations. Hemodialysis as per renal. Thank you for his referral. SENTHIL FERRELL MD FAC Problems: SENTHIL FERRELL MD Apr 21, 2017 18:20
[2017-04-21] MEDS: ATORVASTATIN 40 MG TAB PO SCH (21:18)
[2017-04-21] MEDS: DIPHENHYDRAMINE 25 MG CAP PO PRN (22:58)
[2017-04-22] MEDS: morphine 2 MG INJ IV PRN ×5 (01:15→18:09)
[2017-04-22 02:00] VITALS: BP 146/72; RESP 16
[2017-04-22] MEDS: VANCOMYCIN HCL 250 MG/5ML POSYG PO SCH ×4 (05:16→17:50)
[2017-04-22] MEDS: metroNIDAZOLE 500 MG TAB PO SCH ×2 (05:16→14:00)
[2017-04-22 07:44] LABS: BASOPHIL # 0.1 10^3/ul (0.0-0.1); BASOPHILS % 0.5 % (0.0-2.0); EOSINOPHILS # 0.2 10^3/ul (0.0-0.5); EOSINOPHILS % 1.8 % (0.0-7.0); HEMOGLOBIN 8.4 g/dl (14.0-18.0); LYMPHOCYTES # 0.6 10^3/ul (0.8-2.9); LYMPHOCYTES % 6.6 % (15.0-51.0); MEAN CORPUSCULAR HGB CONC 32.3 g/dl (32.0-37.0); MEAN CORPUSCULAR VOLUME 83.6 fl (82.0-101.0); MEAN PLATELET VOLUME 9.3 fl (7.4-10.4); MONOCYTE # 1.2 10^3/ul (0.3-0.9); MONOCYTES % 12.4 % (0.0-11.0); NEUTROPHIL # 7.3 10^3/ul (1.6-7.5); NEUTROPHILS % 78.2 % (39.0-77.0); PLATELET COUNT 237 10^3/UL (140-415); RED BLOOD COUNT 3.11 10^6/ul (4.70-6.10); RED CELL DISTRIBUTION WIDTH 20.2 % (11.5-14.5); WHITE BLOOD COUNT 9.4 10^3/ul (4.8-10.8)
[2017-04-22 07:48] VITALS: BP 172/76; RESP 16
[2017-04-22 08:05] LABS: CALCIUM 8.4 mg/dl (8.4-10.2); CREATININE 6.7 mg/dl (0.61-1.24)
[2017-04-22 08:11] LABS: POTASSIUM 5.3 mmol/L (3.5-5.1)
[2017-04-22] MEDS: SEVELAMER 800 MG TAB PO SCH ×3 (09:07→18:08)
[2017-04-22] MEDS: AMLODIPINE 5 MG TAB PO SCH ×2 (09:07→20:53)
[2017-04-22] MEDS: CINACALCET 30 MG TAB PO SCH ×2 (09:07→20:53)
[2017-04-22] MEDS: CALCIUM ACETATE 667 MG CAP PO SCH ×3 (09:09→18:08)
[2017-04-22] MEDS: CLOPIDOGREL 75 MG TAB PO SCH (09:09)
[2017-04-22] MEDS: LOSARTAN 25 MG TAB PO SCH ×2 (09:09→20:53)
[2017-04-22] MEDS: ASPIRIN 81 MG TAB PO SCH (09:09)
[2017-04-22] MEDS: BALSAM PERU/CASTOR OIL 60 GM TUBE TOP SCH ×2 (09:10→20:54)
[2017-04-22] MEDS: L ACIDOPHIL/B LACTIS/B LONGUM CAPSULE PO SCH ×2 (09:10→20:53)
--- NOTE | 2017-04-22 09:12 | CONS ---
Date/Time of Note Date/Time of Note DATE: 04/22/17 TIME: 09:11 Consult Date/Type/Reason Admit Date/Time Apr 08, 2017 at 21:31 Initial Consult Date 04/10/17 Type of Consultation: card Ordering Provider: POLY THRASHER MD Subjective Cardiology follow-up progress note (on behalf of Dr.Leo Barr) S: Discussed with staff pt denies any chest pain or pressure to me at this point. He has less foot pain now he denies PND orthopnea O: General: no acute distress HEENT: NC/AT. eyes are blind NECK: NO JVD. no stridor. CV: RRR. systolic murmur; no gallop or rubs. PULM: +_ rhonchi. GI: SOFT, NT, ND, no rebound or guarding Extremity: + necrotic/GANGRENE toes/foot neuro: awake and alert, Psych: calm and pleasant rectal: deferred ECG: Normal sinus rhythm. ST-T wave abnormality consistent with inferolateral ischemia Objective Vital Signs Date Time Temp Pulse Resp B/P Pulse Ox O2 Delivery O2 Flow Rate FiO2 04/22/17 07:48 98.0 16 172/76 96 04/22/17 02:00 69 04/18/17 20:43 Room Air Intake and Output 04/21/17 04/21/17 04/22/17 15:00 23:00 07:00 Intake Total 740 ml 960 ml 240 ml Output Total 2500 ml Balance -1760 ml 960 ml 240 ml Results/Medications Result Diagram: 04/22/17 0607 04/22/17 0607 Results 24 hrs Laboratory Tests Test 04/22/17 06:07 White Blood Count 9.4 Red Blood Count 3.11 L Hemoglobin 8.4 L Hematocrit 26.0 L Mean Corpuscular Volume 83.6 Mean Corpuscular Hemoglobin 27.0 L Mean Corpuscular Hemoglobin Concent 32.3 Red Cell Distribution Width 20.2 H Platelet Count 237 # Mean Platelet Volume 9.3 Neutrophils % 78.2 H Lymphocytes % 6.6 L Monocytes % 12.4 H Eosinophils % 1.8 Basophils % 0.5 Nucleated Red Blood Cells % 0.0 Neutrophils # 7.3 Lymphocytes # 0.6 L Monocytes # 1.2 H Eosinophils # 0.2 Basophils # 0.1 Nucleated Red Blood Cells # 0.0 Sodium Level 138 Potassium Level 5.3 H Chloride Level 96 L Carbon Dioxide Level 28 Anion Gap 19 H Blood Urea Nitrogen 56 H Creatinine 6.70 H Glucose Level 65 L Calcium Level 8.4 Medications Current Medications Ondansetron HCl (Zofran Inj) 4 mg Q6H PRN IV NAUSEA AND/OR VOMITING; Start 04/08/17 at 23:30 Vancomycin HCl (Vancomycin Oral Syringe) 250 mg Q6 PO Last administered on 12:31; Admin Dose 250 MG; Start 04/09/17 at 00:00 Acetaminophen (Tylenol Tab) 650 mg Q4H PRN PO PAIN AND OR ELEVATED TEMP; Start 04/08/17 at 23:30 Acetaminophen/ Hydrocodone Bitart ([place] (5/325)) 1 tab Q4H PRN PO PAIN LEVEL 4 -6 Last administered on 04/21/17 03:51; Admin Dose 1 TAB; Start 04/08/17 at 23 :30 Amlodipine Besylate (Norvasc) 5 mg BID PO Last administered on 04/22/17 09:07 ; Admin Dose 5 MG; Start 04/09/17 at 09:00 Atorvastatin Calcium (Lipitor) 40 mg HS PO Last administered on 04/21/17 21: 18; Admin Dose 40 MG; Start 04/09/17 at 21:00 Cinacalcet (Sensipar) 30 mg BID PO Last administered on 04/22/17 09:07; Admin Dose 30 MG; Start 04/09/17 at 09:00 Clopidogrel Bisulfate (plaVIX) 75 mg DAILY PO Last administered on 04/22/17 09:09; Admin Dose 75 MG; Start 04/09/17 at 09:00 Diphenhydramine HCl (Benadryl) 25 mg Q6H PRN PO ITCHING Last administered on 22:58; Admin Dose 25 MG; Start 04/08/17 at 23:30 Carvedilol (Coreg) 3.125 mg BID PO Last administered on 04/22/17 09:07; Admin Dose 3.125 MG; Start 04/09/17 at 09:00 Aspirin (Aspirin) 81 mg DAILY PO Last administered on 04/22/17 09:09; Admin Dose 81 MG; Start 12/8/17 at 09:00 Morphine Sulfate (morphine) 2 mg Q4H PRN IV SEVERE PAIN LEVEL 7-10 Last administered on 04/22/17 09:07; Admin Dose 2 MG; Start 04/10/17 at 15:30 Lactobacillus Acidophilus (Florajen3 Capsule) 1 each BID PO Last administered on 04/22/17 09:10; Admin Dose 1 EACH; Start 04/11/17 at 14:30 Metronidazole (Flagyl) 500 mg Q8 PO Last administered on 04/19/17 15:27; Admin Dose 500 MG; Start 04/14/17 at 14:00 Losartan Potassium (Cozaar) 25 mg BID PO Last administered on 04/22/17 09:09 ; Admin Dose 25 MG; Start 04/16/17 at 09:30 Al Hydrox/Mg Hydrox/Simethicone (Mag-Al Plus) 30 ml Q6H PRN PO GASTROINTESTINAL UPSET Last administered on 04/18/17 18:11; Admin Dose 30 ML; Start 04/18/17 at 16:00 Epoetin Jorge Luis (Epogen (Esrd)) 4,000 units MoWeFr@17 SC Last administered on 17:17; Admin Dose 4,000 UNITS; Start 04/18/17 at 18:50 Assessment/Plan Chief Complaint/Hosp Course 1. Non-ST elevation myocardial infarction 2. End-stage renal disease on hemodialysis 3. Severe peripheral vascular disease 4. Gangrene of toe/foot 5. Diabetes 6. Dyslipidemia 7. Congestive heart failure: EF 40% 8. Severe and worsening anemia 9. Known severe coronary artery disease including calcified left main disease 10. Ischemic cardiomyopathy Recommendations: I will CONT aspirin to 81 mg. I will cont ARB Potassium management through the dialysis will be done. We cont to manage the patient with continued and aggressive medical therapy as much as possible. Antibiotic will be managed as per internal medicine IDs recommendations. Hemodialysis as per renal. Thank you for his referral. SENTHIL FERRELL MD [facility] Problems: SENTHIL FERRELL MD Apr 22, 2017 09:12
[2017-04-22 13:53] VITALS: BP 133/64; RESP 16
--- NOTE | 2017-04-22 14:00 | CONS ---
Date/Time of Note Date/Time of Note DATE: 04/22/17 TIME: 14:00 Assessment/Plan Assessment/Plan Additional Assessment/Plan 61 yo male with 1)Abd Pain and Diarrhea, C. difficile colitis 2)Elevated troponin, CAD 3)End-stage renal disease hemodialysis dependent 4)Hyperkalemia 5)Left foot gangrenous wounds 6)Severe peripheral vascular disease with severe infrapopliteal disease and pedal disease. 7)Hypertension. 8)CAD 9)Permanent Pacemaker. 10)Legally blind 11)Anemia of chronic disease HD tomorrow MWF Cont current Rx and plan Consultation Date/Type/Reason Admit Date/Time Apr 08, 2017 at 21:31 Initial Consult Date 04/10/17 Type of Consultation: Renal Referring Provider: POLY THRASHER MD 24 HR Interval Summary Constitutional: No requiring O2 Exam/Review of Systems Vital Signs Vitals Vital Signs Date Time Temp Pulse Resp B/P Pulse Ox O2 Delivery O2 Flow Rate FiO2 04/22/17 13:53 97.3 70 16 133/64 96 04/18/17 20:43 Room Air Intake and Output 04/21/17 04/21/17 04/22/17 15:00 23:00 07:00 Intake Total 740 ml 960 ml 240 ml Output Total 2500 ml Balance -1760 ml 960 ml 240 ml Exam Constitutional: No distress ENMT: mucosa pink and moist Respiratory: No labored breathing Cardiovascular: No edema Neurological: nl mental status, No lethargic Results Result Diagram: 04/22/17 0607 04/22/17 0607 Results 24 hrs Laboratory Tests Test 04/22/17 06:07 White Blood Count 9.4 Red Blood Count 3.11 L Hemoglobin 8.4 L Hematocrit 26.0 L Mean Corpuscular Volume 83.6 Mean Corpuscular Hemoglobin 27.0 L Mean Corpuscular Hemoglobin Concent 32.3 Red Cell Distribution Width 20.2 H Platelet Count 237 # Mean Platelet Volume 9.3 Neutrophils % 78.2 H Lymphocytes % 6.6 L Monocytes % 12.4 H Eosinophils % 1.8 Basophils % 0.5 Nucleated Red Blood Cells % 0.0 Neutrophils # 7.3 Lymphocytes # 0.6 L Monocytes # 1.2 H Eosinophils # 0.2 Basophils # 0.1 Nucleated Red Blood Cells # 0.0 Sodium Level 138 Potassium Level 5.3 H Chloride Level 96 L Carbon Dioxide Level 28 Anion Gap 19 H Blood Urea Nitrogen 56 H Creatinine 6.70 H Glucose Level 65 L Calcium Level 8.4 Medications Medications Current Medications Ondansetron HCl (Zofran Inj) 4 mg Q6H PRN IV NAUSEA AND/OR VOMITING; Start 04/08/17 at 23:30 Vancomycin HCl (Vancomycin Oral Syringe) 250 mg Q6 PO Last administered on 12:27; Admin Dose 250 MG; Start 04/09/17 at 00:00 Acetaminophen (Tylenol Tab) 650 mg Q4H PRN PO PAIN AND OR ELEVATED TEMP; Start 04/08/17 at 23:30 Acetaminophen/ Hydrocodone Bitart ([place] (5/325)) 1 tab Q4H PRN PO PAIN LEVEL 4 -6 Last administered on 04/21/17 03:51; Admin Dose 1 TAB; Start 04/08/17 at 23 :30 Amlodipine Besylate (Norvasc) 5 mg BID PO Last administered on 04/22/17 09:07 ; Admin Dose 5 MG; Start 04/09/17 at 09:00 Atorvastatin Calcium (Lipitor) 40 mg HS PO Last administered on 04/21/17 21: 18; Admin Dose 40 MG; Start 04/09/17 at 21:00 Cinacalcet (Sensipar) 30 mg BID PO Last administered on 04/22/17 09:07; Admin Dose 30 MG; Start 04/09/17 at 09:00 Clopidogrel Bisulfate (plaVIX) 75 mg DAILY PO Last administered on 04/22/17 09:09; Admin Dose 75 MG; Start 04/09/17 at 09:00 Diphenhydramine HCl (Benadryl) 25 mg Q6H PRN PO ITCHING Last administered on 22:58; Admin Dose 25 MG; Start 04/08/17 at 23:30 Carvedilol (Coreg) 3.125 mg BID PO Last administered on 04/22/17 09:07; Admin Dose 3.125 MG; Start 04/09/17 at 09:00 Aspirin (Aspirin) 81 mg DAILY PO Last administered on 04/22/17 09:09; Admin Dose 81 MG; Start 04/11/17 at 09:00 Morphine Sulfate (morphine) 2 mg Q4H PRN IV SEVERE PAIN LEVEL 7-10 Last administered on 04/22/17 09:07; Admin Dose 2 MG; Start 04/10/17 at 15:30 Lactobacillus Acidophilus (Florajen3 Capsule) 1 each BID PO Last administered on 04/22/17 09:10; Admin Dose 1 EACH; Start 04/11/17 at 14:30 Metronidazole (Flagyl) 500 mg Q8 PO Last administered on 04/19/17 15:27; Admin Dose 500 MG; Start 04/14/17 at 14:00 Losartan Potassium (Cozaar) 25 mg BID PO Last administered on 04/22/17 09:09 ; Admin Dose 25 MG; Start 04/16/17 at 09:30 Al Hydrox/Mg Hydrox/Simethicone (Mag-Al Plus) 30 ml Q6H PRN PO GASTROINTESTINAL UPSET Last administered on 04/18/17 18:11; Admin Dose 30 ML; Start 04/18/17 at 16:00 Epoetin Jorge Luis (Epogen (Esrd)) 4,000 units MoWeFr@17 SC Last administered on 17:17; Admin Dose 4,000 UNITS; Start 04/18/17 at 18:50 PIPER FELIX MD Apr 22, 2017 14:00
--- NOTE | 2017-04-22 17:46 | PN ---
Date/Time of Note Date/Time of Note DATE: 04/22/17 TIME: 17:44 Assessment/Plan VTE Prophylaxis VTE Prophylaxis Intervention: SCD's Lines/Catheters IV C[facility]ter Type [facility]from [facility] [place] Assessment/Plan Chief Complaint/Hosp Course Patient denies diarrhea, no fever, chest pain denies shortness of breath. DC planning. Patient is blind with multiple comorbidities, dialysis, and wounds, needs halfway facility placement Assessment/Plan -C. difficile colitis, continue vancomycin p.o. Dr. Tobias is following in infection disease consultation. -Non-ST RI, continue aspirin. allowing in cardiology consultation. -End-stage renal disease hemodialysis dependent. Dr. Wallace is following in nephrology consultation. Continue hemodialysis. - Possible PNA, continue abx. - Left foot gangrenous wounds - Severe peripheral vascular disease with severe infrapopliteal disease and pedal disease. - Hypertension. - CAD - Permanent Pacemaker. - Legally blind - Anemia of chronic disease. Further recommendations based on clinical course. Plan of care discussed with Dr. French Problems: Exam/Review of Systems Vital Signs Vitals Vital Signs Date Time Temp Pulse Resp B/P Pulse Ox O2 Delivery O2 Flow Rate FiO2 04/22/17 13:53 97.3 70 16 133/64 96 04/18/17 20:43 Room Air Intake and Output 04/21/17 04/21/17 04/22/17 15:00 23:00 07:00 Intake Total 740 ml 960 ml 240 ml Output Total 2500 ml Balance -1760 ml 960 ml 240 ml Exam Constitutional: alert, oriented Eyes: other (Blind) Respiratory: clear Cardiovascular: other (Paced rhythm) Gastrointestinal: soft, tender Extremities: normal pulses, other (Bilateral feet gangrene) Results Result Diagram: 04/22/17 0607 04/22/17 0607 Results 24 hrs Laboratory Tests Test 04/22/17 06:07 White Blood Count 9.4 Red Blood Count 3.11 L Hemoglobin 8.4 L Hematocrit 26.0 L Mean Corpuscular Volume 83.6 Mean Corpuscular Hemoglobin 27.0 L Mean Corpuscular Hemoglobin Concent 32.3 Red Cell Distribution Width 20.2 H Platelet Count 237 # Mean Platelet Volume 9.3 Neutrophils % 78.2 H Lymphocytes % 6.6 L Monocytes % 12.4 H Eosinophils % 1.8 Basophils % 0.5 Nucleated Red Blood Cells % 0.0 Neutrophils # 7.3 Lymphocytes # 0.6 L Monocytes # 1.2 H Eosinophils # 0.2 Basophils # 0.1 Nucleated Red Blood Cells # 0.0 Sodium Level 138 Potassium Level 5.3 H Chloride Level 96 L Carbon Dioxide Level 28 Anion Gap 19 H Blood Urea Nitrogen 56 H Creatinine 6.70 H Glucose Level 65 L Calcium Level 8.4 Medications Medications Current Medications Ondansetron HCl (Zofran Inj) 4 mg Q6H PRN IV NAUSEA AND/OR VOMITING; Start 04/08/17 at 23:30 Vancomycin HCl (Vancomycin Oral Syringe) 250 mg Q6 PO Last administered on 12:27; Admin Dose 250 MG; Start 04/09/17 at 00:00 Acetaminophen (Tylenol Tab) 650 mg Q4H PRN PO PAIN AND OR ELEVATED TEMP; Start 04/08/17 at 23:30 Acetaminophen/ Hydrocodone Bitart ([place] (5/325)) 1 tab Q4H PRN PO PAIN LEVEL 4 -6 Last administered on 04/21/17 03:51; Admin Dose 1 TAB; Start 04/08/17 at 23 :30 Amlodipine Besylate (Norvasc) 5 mg BID PO Last administered on 04/22/17 09:07 ; Admin Dose 5 MG; Start 04/09/17 at 09:00 Atorvastatin Calcium (Lipitor) 40 mg HS PO Last administered on 04/21/17 21: 18; Admin Dose 40 MG; Start 04/09/17 at 21:00 Cinacalcet (Sensipar) 30 mg BID PO Last administered on 04/22/17 09:07; Admin Dose 30 MG; Start 04/09/17 at 09:00 Clopidogrel Bisulfate (plaVIX) 75 mg DAILY PO Last administered on 04/22/17 09:09; Admin Dose 75 MG; Start 04/09/17 at 09:00 Diphenhydramine HCl (Benadryl) 25 mg Q6H PRN PO ITCHING Last administered on 22:58; Admin Dose 25 MG; Start 04/08/17 at 23:30 Carvedilol (Coreg) 3.125 mg BID PO Last administered on 04/22/17 09:07; Admin Dose 3.125 MG; Start 04/09/17 at 09:00 Aspirin (Aspirin) 81 mg DAILY PO Last administered on 04/22/17 09:09; Admin Dose 81 MG; Start 04/11/17 at 09:00 Morphine Sulfate (morphine) 2 mg Q4H PRN IV SEVERE PAIN LEVEL 7-10 Last administered on 04/22/17 14:06; Admin Dose 2 MG; Start 04/10/17 at 15:30 Lactobacillus Acidophilus (Florajen3 Capsule) 1 each BID PO Last administered on 04/22/17 09:10; Admin Dose 1 EACH; Start 04/11/17 at 14:30 Metronidazole (Flagyl) 500 mg Q8 PO Last administered on 04/19/17 15:27; Admin Dose 500 MG; Start 04/14/17 at 14:00 Losartan Potassium (Cozaar) 25 mg BID PO Last administered on 04/22/17 09:09 ; Admin Dose 25 MG; Start 04/16/17 at 09:30 Al Hydrox/Mg Hydrox/Simethicone (Mag-Al Plus) 30 ml Q6H PRN PO GASTROINTESTINAL UPSET Last administered on 04/18/17 18:11; Admin Dose 30 ML; Start 04/18/17 at 16:00 Epoetin Jorge Luis (Epogen (Esrd)) 4,000 units MoWeFr@17 SC Last administered on 17:17; Admin Dose 4,000 UNITS; Start 04/18/17 at 18:50 VIV KING Apr 22, 2017 17:46
[2017-04-22] MEDS: DIPHENHYDRAMINE 25 MG CAP PO PRN (18:08)
--- NOTE | 2017-04-22 19:57 | CONS ---
Date/Time of Note Date/Time of Note DATE: 04/22/17 TIME: 19:55 Assessment/Plan Assessment/Plan Chief Complaint/Hosp Course SUBJECTIVE: No acute events, no fevers, diarrhea resolved MICROBIOLOGY: Blood cultures negative. INDWELLINGS: The patient has AV fistula. ANTIMICROBIALS: Vancomycin PO, Flagyl PHYSICAL EXAMINATION: GENERAL: This is a chronically ill-appearing, fragile, elderly man who is awake , in no distress. HEENT: Head atraumatic, normocephalic. Sclerae anicteric. Buccal mucosa dry. NECK: Supple. CHEST: Rise symmetrical. Breath sounds diminished to bases. HEART: S1, S2. ABDOMEN: Soft, bowel tones present. EXTREMITIES: Left foot gangrene. ASSESSMENT: 1. Systemic inflammatory response syndrome. 2. Clostridium difficile colitis==> resolved. 3. 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 4. End-stage renal disease. 5. Anemia. 6. Severe peripheral arterial and vascular disease. 7. History of permanent pacemaker placement. PLAN: Remains unchanged, completed abx for C dif, no diarrhea, continue present care, pain management, hemodialysis per renal DW staff Problems: Consultation Date/Type/Reason Admit Date/Time Apr 08, 2017 at 21:31 Initial Consult Date 04/10/17 Type of Consultation: id Referring Provider: POLY THRASHER MD Exam/Review of Systems Vital Signs Vitals Vital Signs Date Time Temp Pulse Resp B/P Pulse Ox O2 Delivery O2 Flow Rate FiO2 04/22/17 13:53 97.3 70 16 133/64 96 04/18/17 20:43 Room Air Intake and Output 04/21/17 04/21/17 04/22/17 15:00 23:00 07:00 Intake Total 740 ml 960 ml 240 ml Output Total 2500 ml Balance -1760 ml 960 ml 240 ml Results Result Diagram: 04/22/17 0607 04/22/17 0607 Results 24 hrs Laboratory Tests Test 04/22/17 06:07 White Blood Count 9.4 Red Blood Count 3.11 L Hemoglobin 8.4 L Hematocrit 26.0 L Mean Corpuscular Volume 83.6 Mean Corpuscular Hemoglobin 27.0 L Mean Corpuscular Hemoglobin Concent 32.3 Red Cell Distribution Width 20.2 H Platelet Count 237 # Mean Platelet Volume 9.3 Neutrophils % 78.2 H Lymphocytes % 6.6 L Monocytes % 12.4 H Eosinophils % 1.8 Basophils % 0.5 Nucleated Red Blood Cells % 0.0 Neutrophils # 7.3 Lymphocytes # 0.6 L Monocytes # 1.2 H Eosinophils # 0.2 Basophils # 0.1 Nucleated Red Blood Cells # 0.0 Sodium Level 138 Potassium Level 5.3 H Chloride Level 96 L Carbon Dioxide Level 28 Anion Gap 19 H Blood Urea Nitrogen 56 H Creatinine 6.70 H Glucose Level 65 L Calcium Level 8.4 Medications Medications Current Medications Ondansetron HCl (Zofran Inj) 4 mg Q6H PRN IV NAUSEA AND/OR VOMITING; Start 04/08/17 at 23:30 Vancomycin HCl (Vancomycin Oral Syringe) 250 mg Q6 PO Last administered on 12:27; Admin Dose 250 MG; Start 04/09/17 at 00:00 Acetaminophen (Tylenol Tab) 650 mg Q4H PRN PO PAIN AND OR ELEVATED TEMP; Start 04/08/17 at 23:30 Acetaminophen/ Hydrocodone Bitart ([place] (5/325)) 1 tab Q4H PRN PO PAIN LEVEL 4 -6 Last administered on 04/21/17 03:51; Admin Dose 1 TAB; Start 04/08/17 at 23 :30 Amlodipine Besylate (Norvasc) 5 mg BID PO Last administered on 04/22/17 09:07 ; Admin Dose 5 MG; Start 04/09/17 at 09:00 Atorvastatin Calcium (Lipitor) 40 mg HS PO Last administered on 04/21/17 21: 18; Admin Dose 40 MG; Start 04/09/17 at 21:00 Cinacalcet (Sensipar) 30 mg BID PO Last administered on 04/22/17 09:07; Admin Dose 30 MG; Start 04/09/17 at 09:00 Clopidogrel Bisulfate (plaVIX) 75 mg DAILY PO Last administered on 04/22/17 09:09; Admin Dose 75 MG; Start 04/09/17 at 09:00 Diphenhydramine HCl (Benadryl) 25 mg Q6H PRN PO ITCHING Last administered on 18:08; Admin Dose 25 MG; Start 04/08/17 at 23:30 Carvedilol (Coreg) 3.125 mg BID PO Last administered on 04/22/17 09:07; Admin Dose 3.125 MG; Start 04/09/17 at 09:00 Aspirin (Aspirin) 81 mg DAILY PO Last administered on 04/22/17 09:09; Admin Dose 81 MG; Start 04/11/17 at 09:00 Morphine Sulfate (morphine) 2 mg Q4H PRN IV SEVERE PAIN LEVEL 7-10 Last administered on 04/22/17 18:09; Admin Dose 2 MG; Start 04/10/17 at 15:30 Lactobacillus Acidophilus (Florajen3 Capsule) 1 each BID PO Last administered on 04/22/17 09:10; Admin Dose 1 EACH; Start 04/11/17 at 14:30 Metronidazole (Flagyl) 500 mg Q8 PO Last administered on 04/19/17 15:27; Admin Dose 500 MG; Start 04/14/17 at 14:00 Losartan Potassium (Cozaar) 25 mg BID PO Last administered on 04/22/17 09:09 ; Admin Dose 25 MG; Start 04/16/17 at 09:30 Al Hydrox/Mg Hydrox/Simethicone (Mag-Al Plus) 30 ml Q6H PRN PO GASTROINTESTINAL UPSET Last administered on 04/18/17 18:11; Admin Dose 30 ML; Start 04/18/17 at 16:00 Epoetin Jorge Luis (Epogen (Esrd)) 4,000 units MoWeFr@17 SC Last administered on 17:17; Admin Dose 4,000 UNITS; Start 04/18/17 at 18:50 SHITAL MCKEON NP Apr 22, 2017 19:57
[2017-04-22 19:58] VITALS: BP 167/73; RESP 20
[2017-04-22] MEDS: ATORVASTATIN 40 MG TAB PO SCH (20:53)
[2017-04-23] VITALS (12 sets, daily range): BP systolic 126–155; BP diastolic 55–77; PULSE 88–111; RESP 18–20
[2017-04-23 06:47] LABS: CALCIUM 7.9 mg/dl (8.4-10.2); CREATININE 8.32 mg/dl (0.61-1.24)
[2017-04-23 07:13] LABS: POTASSIUM 5.8 mmol/L (3.5-5.1)
[2017-04-23] MEDS: CALCIUM ACETATE 667 MG CAP PO SCH ×4 (08:15→17:38)
[2017-04-23] MEDS: SEVELAMER 800 MG TAB PO SCH ×3 (08:42→17:40)
[2017-04-23] MEDS: CINACALCET 30 MG TAB PO SCH ×2 (08:42→21:02)
[2017-04-23] MEDS: ASPIRIN 81 MG TAB PO SCH (08:42)
[2017-04-23] MEDS: L ACIDOPHIL/B LACTIS/B LONGUM CAPSULE PO SCH ×2 (08:42→21:02)
[2017-04-23] MEDS: LOSARTAN 25 MG TAB PO SCH ×2 (08:43→21:02)
[2017-04-23] MEDS: AMLODIPINE 5 MG TAB PO SCH ×2 (08:44→21:02)
[2017-04-23] MEDS: CLOPIDOGREL 75 MG TAB PO SCH (08:44)
[2017-04-23] MEDS: BALSAM PERU/CASTOR OIL 60 GM TUBE TOP SCH ×2 (08:44→21:03)
--- NOTE | 2017-04-23 09:43 | CONS ---
Date/Time of Note Date/Time of Note DATE: 04/23/17 TIME: 09:42 Consult Date/Type/Reason Admit Date/Time Apr 08, 2017 at 21:31 Initial Consult Date 04/10/17 Type of Consultation: CV Ordering Provider: POLY THRASHER MD Subjective Cardiology follow-up progress note (on behalf of Dr.Leo Barr) S: Discussed with staff pt denies any chest pain or pressure to me at this point. He denies foot pain now he denies PND orthopnea O: General: no acute distress HEENT: NC/AT. eyes are blind NECK: NO JVD. no stridor. CV: RRR. systolic murmur; no gallop or rubs. PULM: +_ rhonchi. GI: SOFT, NT, ND, no rebound or guarding Extremity: + necrotic/GANGRENE toes/foot neuro: awake and alert, Psych: calm and pleasant rectal: deferred ECG: Normal sinus rhythm. ST-T wave abnormality consistent with inferolateral ischemia Objective Vital Signs Date Time Temp Pulse Resp B/P Pulse Ox O2 Delivery O2 Flow Rate FiO2 04/23/17 08:00 97.9 70 19 142/77 93 Intake and Output 04/22/17 04/22/17 04/23/17 15:00 23:00 07:00 Intake Total 840 ml Balance 840 ml Results/Medications Result Diagram: 04/22/17 0607 04/23/17 0535 Results 24 hrs Laboratory Tests Test 04/23/17 05:35 Sodium Level 137 Potassium Level 5.8 H Chloride Level 95 L Carbon Dioxide Level 25 Anion Gap 23 H Blood Urea Nitrogen 70 H Creatinine 8.32 H Glucose Level 71 Calcium Level 7.9 L Medications Current Medications Ondansetron HCl (Zofran Inj) 4 mg Q6H PRN IV NAUSEA AND/OR VOMITING; Start 04/08/17 at 23:30 Acetaminophen (Tylenol Tab) 650 mg Q4H PRN PO PAIN AND OR ELEVATED TEMP; Start 04/08/17 at 23:30 Acetaminophen/ Hydrocodone Bitart ([place] (5/325)) 1 tab Q4H PRN PO PAIN LEVEL 4 -6 Last administered on 04/21/17t 03:51; Admin Dose 1 TAB; Start 04/08/17 at 23 :30 Amlodipine Besylate (Norvasc) 5 mg BID PO Last administered on 04/22/17 20:53 ; Admin Dose 5 MG; Start 04/09/17 at 09:00 Atorvastatin Calcium (Lipitor) 40 mg HS PO Last administered on 04/22/17 20: 53; Admin Dose 40 MG; Start 04/09/17 at 21:00 Cinacalcet (Sensipar) 30 mg BID PO Last administered on 04/23/17 08:42; Admin Dose 30 MG; Start 04/09/17 at 09:00 Clopidogrel Bisulfate (plaVIX) 75 mg DAILY PO Last administered on 04/23/17 08:44; Admin Dose 75 MG; Start 04/09/17 at 09:00 Diphenhydramine HCl (Benadryl) 25 mg Q6H PRN PO ITCHING Last administered on 18:08; Admin Dose 25 MG; Start 04/08/17 at 23:30 Carvedilol (Coreg) 3.125 mg BID PO Last administered on 04/22/17 20:53; Admin Dose 3.125 MG; Start 04/09/17 at 09:00 Aspirin (Aspirin) 81 mg DAILY PO Last administered on 04/23/17 08:42; Admin Dose 81 MG; Start 04/11/17 at 09:00 Morphine Sulfate (morphine) 2 mg Q4H PRN IV SEVERE PAIN LEVEL 7-10 Last administered on 04/22/17 18:09; Admin Dose 2 MG; Start 04/10/17 at 15:30 Lactobacillus Acidophilus (Florajen3 Capsule) 1 each BID PO Last administered on 04/23/17 08:42; Admin Dose 1 EACH; Start 04/11/17 at 14:30 Losartan Potassium (Cozaar) 25 mg BID PO Last administered on 04/22/17 20:53 ; Admin Dose 25 MG; Start 04/16/17 at 09:30 Al Hydrox/Mg Hydrox/Simethicone (Mag-Al Plus) 30 ml Q6H PRN PO GASTROINTESTINAL UPSET Last administered on 04/18/17 18:11; Admin Dose 30 ML; Start 04/18/17 at 16:00 Epoetin Jorge Luis (Epogen (Esrd)) 4,000 units MoWeFr@17 SC Last administered on 12/ 18/17at 17:17; Admin Dose 4,000 UNITS; Start 04/18/17 at 18:50 Assessment/Plan Chief Complaint/Hosp Course 1. Non-ST elevation myocardial infarction 2. End-stage renal disease on hemodialysis 3. Severe peripheral vascular disease 4. Gangrene of toe/foot 5. Diabetes 6. Dyslipidemia 7. Congestive heart failure: EF 40% 8. Severe and worsening anemia 9. Known severe coronary artery disease including calcified left main disease 10. Ischemic cardiomyopathy Recommendations: I will CONT aspirin to 81 mg. I will cont ARB Potassium management through the dialysis by renal team . We cont to manage the patient with continued and aggressive medical therapy as much as possible. Antibiotic will be managed as per internal medicine IDs recommendations. Hemodialysis as per renal. Thank you for his referral. SENTHIL FERRELL MD [facility] Problems: SENTHIL FERRELL MD Apr 23, 2017 09:43
[2017-04-23] MEDS: morphine 2 MG INJ IV PRN ×2 (10:42→17:40)
--- NOTE | 2017-04-23 16:33 | DS ---
Date/Time of Note Date/Time of Note DATE: 04/23/17 TIME: 16:31 Discharge Summary Admission/Discharge Info Admit Date/Time Apr 08, 2017 at 21:31 Discharge Date/Time Patient Condition: Stable Hx of Present Illness The patient is 61-year-old gentleman known to me from previous admission. Patient has significant medical history including hemodialysis dependent end- stage renal disease, hypertension, coronary artery artery disease, severe peripheral vascular disease and bilateral foot dry gangrene, hypertension, blindness. Patient presented to the emergency room with complaints of 4 days of diarrhea. Patient did receive antibiotics for bilateral foot gangrenous wounds during previous admission. Patient complained of chest pain, abdominal pain, and bilateral lower extremities pain. Patient underwent chest Xray which revealed possible pneumonia, pt was started on broad-spectrum antibiotics. Patient did miss his hemodialysis due to diarrhea, his last dialysis was on Friday. Patient noted to have elevated troponin and hyperkalemia on admission. Patient is admitted for further evaluation and management to telemetry floor. Hospital Course -C. difficile colitis, resolved Dr. Tobias is following in infection disease consultation. -Non-ST [place], continue aspirin. allowing in cardiology consultation. -End-stage renal disease hemodialysis dependent. Dr. Wallace is following in nephrology consultation. Continue hemodialysis. - Possible PNA, continue abx. - Left foot gangrenous wounds - Severe peripheral vascular disease with severe infrapopliteal disease and pedal disease. - Hypertension. - CAD - Permanent Pacemaker. - Legally blind - Anemia of chronic disease. Further recommendations based on clinical course. Plan of care discussed with Dr. French Home Meds Active Scripts Diphenhydramine Hcl* (Benadryl*) 25 Mg Cap, 25 MG PO Q6H Y for ITCHING, #30 CAP Prov:VIV KING 04/04/17 Hydrocodone Bit-Acetaminophen (Hydrocodone Bit-APAP) 5-325MG Tablet, 1 TAB PO Q4H Y for PAIN, #30 TAB Prov:VIV KING 04/04/17 Atorvastatin* (Atorvastatin*) 40 Mg Tablet, 40 MG PO HS for 30 Days, TAB Prov:VIV KING 04/04/17 Clopidogrel Bisulfate (Clopidogrel) 75 Mg Tablet, 75 MG PO DAILY for 30 Days, TAB 2 Refills Prov:VIV KING 04/04/17 Losartan Potassium* (Losartan Potassium*) 25 Mg Tablet, 25 MG PO DAILY for 30 Days, TAB Prov:VIV KING 04/04/17 Amlodipine Besylate* (Norvasc*) 5 Mg Tablet, 5 MG PO BID for 30 Days, TAB Prov:VIV KING 04/04/17 Calcium Acetate* (Calcium Acetate*) 667 Mg Capsule, 667 MG PO WITH MEALS, #30 CAP Prov:VIV KING 04/04/17 Cinacalcet* (Sensipar*) 30 Mg Tab, 30 MG PO BID for 30 Days, TAB Prov:VIV KING 04/04/17 Sevelamer Hcl* (Renagel*) 800 Mg Tab, 800 MG PO WITH MEALS, #90 Prov:VIV KING 04/04/17 Follow-up Plan Follow-up with Dr. Álvaro Casas and amputation prevention center, follow-up in hemodialysis center for next hemodialysis. Primary Care Provider Joaquin Newby MD Pending Labs Laboratory Tests Test 04/23/17 05:35 Sodium Level 137mmol/L (135-144) Potassium Level 5.8mmol/L (3.5-5.1) Chloride Level 95mmol/L (97-110) Carbon Dioxide Level 25mmol/L (21-31) Anion Gap 23 (8-16) Blood Urea Nitrogen 70mg/dl (7-20) Creatinine 8.32mg/dl (0.61-1.24) Glucose Level 71mg/dl (70-220) Calcium Level 7.9mg/dl (8.4-10.2) VIV KING Apr 23, 2017 16:33
[2017-04-23] MEDS: EPOETIN 4000 UNITS/1 ML INJ (ESRD) SC SCH (17:39)
--- NOTE | 2017-04-23 19:04 | CONS ---
Date/Time of Note Date/Time of Note DATE: 04/23/17 TIME: 19:04 Assessment/Plan Assessment/Plan Additional Assessment/Plan 61 yo male with 1)Abd Pain and Diarrhea, C. difficile colitis 2)Elevated troponin, CAD 3)End-stage renal disease hemodialysis dependent 4)Hyperkalemia 5)Left foot gangrenous wounds 6)Severe peripheral vascular disease with severe infrapopliteal disease and pedal disease. 7)Hypertension. 8)CAD 9)Permanent Pacemaker. 10)Legally blind 11)Anemia of chronic disease HD MWF Cont to monitor Electrolytes, Volume status Cont current Rx and plan Consultation Date/Type/Reason Admit Date/Time Apr 08, 2017 at 21:31 Initial Consult Date 04/10/17 Type of Consultation: Renal Referring Provider: POLY THRASHER MD 24 HR Interval Summary Constitutional: No requiring O2 Exam/Review of Systems Vital Signs Vitals Vital Signs Date Time Temp Pulse Resp B/P Pulse Ox O2 Delivery O2 Flow Rate FiO2 04/23/17 17:15 111 15 04/23/17 14:08 97.7 143/67 94 Intake and Output 04/22/17 04/22/17 04/23/17 15:00 23:00 07:00 Intake Total 840 ml Balance 840 ml Exam Constitutional: No distress ENMT: mucosa pink and moist Neck: No jvd Respiratory: No labored breathing Cardiovascular: No edema Gastrointestinal: soft Neurological: nl mental status Results Result Diagram: 04/22/17 0607 04/23/17 0535 Results 24 hrs Laboratory Tests Test 04/23/17 05:35 Sodium Level 137 Potassium Level 5.8 H Chloride Level 95 L Carbon Dioxide Level 25 Anion Gap 23 H Blood Urea Nitrogen 70 H Creatinine 8.32 H Glucose Level 71 Calcium Level 7.9 L Medications Medications Current Medications Ondansetron HCl (Zofran Inj) 4 mg Q6H PRN IV NAUSEA AND/OR VOMITING; Start 04/08/17 at 23:30 Acetaminophen (Tylenol Tab) 650 mg Q4H PRN PO PAIN AND OR ELEVATED TEMP; Start 04/08/17 at 23:30 Acetaminophen/ Hydrocodone Bitart ([place] (5/325)) 1 tab Q4H PRN PO PAIN LEVEL 4 -6 Last administered on 04/21/17t 03:51; Admin Dose 1 TAB; Start 04/08/17 at 23 :30 Amlodipine Besylate (Norvasc) 5 mg BID PO Last administered on 04/22/17 20:53 ; Admin Dose 5 MG; Start 04/09/17 at 09:00 Atorvastatin Calcium (Lipitor) 40 mg HS PO Last administered on 04/22/17 20: 53; Admin Dose 40 MG; Start 04/09/17 at 21:00 Cinacalcet (Sensipar) 30 mg BID PO Last administered on 04/23/17 08:42; Admin Dose 30 MG; Start 04/09/17 at 09:00 Clopidogrel Bisulfate (plaVIX) 75 mg DAILY PO Last administered on 04/23/17 08:44; Admin Dose 75 MG; Start 04/09/17 at 09:00 Diphenhydramine HCl (Benadryl) 25 mg Q6H PRN PO ITCHING Last administered on 18:08; Admin Dose 25 MG; Start 04/08/17 at 23:30 Carvedilol (Coreg) 3.125 mg BID PO Last administered on 04/22/17 20:53; Admin Dose 3.125 MG; Start 04/09/17 at 09:00 Aspirin (Aspirin) 81 mg DAILY PO Last administered on 04/23/17 08:42; Admin Dose 81 MG; Start 04/11/17 at 09:00 Morphine Sulfate (morphine) 2 mg Q4H PRN IV SEVERE PAIN LEVEL 7-10 Last administered on 04/23/17 17:40; Admin Dose 2 MG; Start 04/10/17 at 15:30 Lactobacillus Acidophilus (Florajen3 Capsule) 1 each BID PO Last administered on 04/23/17 08:42; Admin Dose 1 EACH; Start 04/11/17 at 14:30 Losartan Potassium (Cozaar) 25 mg BID PO Last administered on 04/22/17 20:53 ; Admin Dose 25 MG; Start 04/16/17 at 09:30 Al Hydrox/Mg Hydrox/Simethicone (Mag-Al Plus) 30 ml Q6H PRN PO GASTROINTESTINAL UPSET Last administered on 04/18/17 18:11; Admin Dose 30 ML; Start 04/18/17 at 16:00 Epoetin Jorge Luis (Epogen (Esrd)) 4,000 units MoWeFr@17 SC Last administered on 12/ 20/17at 17:39; Admin Dose 4,000 UNITS; Start 04/18/17 at 18:50 Hydralazine HCl (Apresoline) 25 mg Q6 PRN PO SBP >160; Start 04/23/17 at 18:30 PIPER FELIX MD Apr 23, 2017 19:04
[2017-04-23] MEDS: ATORVASTATIN 40 MG TAB PO SCH (21:02)
[2017-04-24 02:00] VITALS: BP 149/66; RESP 20
[2017-04-24 07:57] VITALS: BP 147/67; RESP 18
[2017-04-24] MEDS: morphine 2 MG INJ IV PRN (08:02)
[2017-04-24] MEDS: SEVELAMER 800 MG TAB PO SCH ×2 (08:02→12:32)
[2017-04-24] MEDS: CALCIUM ACETATE 667 MG CAP PO SCH ×2 (08:03→12:15)
--- NOTE | 2017-04-24 09:06 | CONS ---
Date/Time of Note Date/Time of Note DATE: 04/24/17 TIME: 09:06 Consult Date/Type/Reason Admit Date/Time Apr 08, 2017 at 21:31 Initial Consult Date 04/10/17 Type of Consultation: cv Ordering Provider: POLY THRASHER MD Subjective Cardiology follow-up progress note (on behalf of Dr.Leo Barr) S: Discussed with staff and family pt denies any chest pain or pressure to me at this point. He denies foot pain now he denies PND orthopnea O: General: no acute distress HEENT: NC/AT. eyes are blind NECK: NO JVD. no stridor. CV: RRR. systolic murmur; no gallop or rubs. PULM: +_ rhonchi. GI: SOFT, NT, ND, no rebound or guarding Extremity: + necrotic/GANGRENE toes/foot neuro: awake and alert, Psych: calm and pleasant rectal: deferred ECG: Normal sinus rhythm. ST-T wave abnormality consistent with inferolateral ischemia Objective Vital Signs Date Time Temp Pulse Resp B/P Pulse Ox O2 Delivery O2 Flow Rate FiO2 04/24/17 07:57 97.9 70 18 147/67 97 Intake and Output 04/23/17 04/23/17 04/24/17 15:00 23:00 07:00 Intake Total 240 ml 1340 ml 120 ml Output Total 3500 ml Balance 240 ml -2160 ml 120 ml Results/Medications Result Diagram: 04/22/17 0607 04/23/17 0535 Medications Current Medications Ondansetron HCl (Zofran Inj) 4 mg Q6H PRN IV NAUSEA AND/OR VOMITING; Start 04/08/17 at 23:30 Acetaminophen (Tylenol Tab) 650 mg Q4H PRN PO PAIN AND OR ELEVATED TEMP; Start 04/08/17 at 23:30 Acetaminophen/ Hydrocodone Bitart ([place] (5/325)) 1 tab Q4H PRN PO PAIN LEVEL 4 -6 Last administered on 04/21/17 03:51; Admin Dose 1 TAB; Start 04/08/17 at 23 :30 Amlodipine Besylate (Norvasc) 5 mg BID PO Last administered on 04/23/17 21:02 ; Admin Dose 5 MG; Start 04/09/17 at 09:00 Atorvastatin Calcium (Lipitor) 40 mg HS PO Last administered on 04/23/17 21: 02; Admin Dose 40 MG; Start 04/09/17 at 21:00 Cinacalcet (Sensipar) 30 mg BID PO Last administered on 04/23/17 21:02; Admin Dose 30 MG; Start 04/09/17 at 09:00 Clopidogrel Bisulfate (plaVIX) 75 mg DAILY PO Last administered on 04/23/17 08:44; Admin Dose 75 MG; Start 04/09/17 at 09:00 Diphenhydramine HCl (Benadryl) 25 mg Q6H PRN PO ITCHING Last administered on 18:08; Admin Dose 25 MG; Start 04/08/17 at 23:30 Carvedilol (Coreg) 3.125 mg BID PO Last administered on 04/23/17 21:03; Admin Dose 3.125 MG; Start 04/09/17 at 09:00 Aspirin (Aspirin) 81 mg DAILY PO Last administered on 04/23/17 08:42; Admin Dose 81 MG; Start 04/11/17 at 09:00 Morphine Sulfate (morphine) 2 mg Q4H PRN IV SEVERE PAIN LEVEL 7-10 Last administered on 04/24/17 08:02; Admin Dose 2 MG; Start 04/10/17 at 15:30 Lactobacillus Acidophilus (Florajen3 Capsule) 1 each BID PO Last administered on 04/23/17 21:02; Admin Dose 1 EACH; Start 04/11/17 at 14:30 Losartan Potassium (Cozaar) 25 mg BID PO Last administered on 04/23/17 21:02 ; Admin Dose 25 MG; Start 04/16/17 at 09:30 Al Hydrox/Mg Hydrox/Simethicone (Mag-Al Plus) 30 ml Q6H PRN PO GASTROINTESTINAL UPSET Last administered on 04/18/17 18:11; Admin Dose 30 ML; Start 04/18/17 at 16:00 Epoetin Jorge Luis (Epogen (Esrd)) 4,000 units MoWeFr@17 SC Last administered on 17:39; Admin Dose 4,000 UNITS; Start 04/18/17 at 18:50 Hydralazine HCl (Apresoline) 25 mg Q6 PRN PO SBP >160; Start 04/23/17 at 18:30 Assessment/Plan Chief Complaint/Hosp Course 1. Non-ST elevation myocardial infarction 2. End-stage renal disease on hemodialysis 3. Severe peripheral vascular disease 4. Gangrene of toe/foot 5. Diabetes 6. Dyslipidemia 7. Congestive heart failure: EF 40% 8. Severe and worsening anemia 9. Known severe coronary artery disease including calcified left main disease 10. Ischemic cardiomyopathy Recommendations: I will CONT aspirin to 81 mg. I will cont ARB as long as ok with renal distributor sales consultant Potassium management through the dialysis by renal team . We cont to manage the patient with continued and aggressive medical therapy as much as possible. Antibiotic will be managed as per internal medicine IDs recommendations. Hemodialysis as per renal. Thank you for his referral. SENTHIL FERRELL MD [facility] Problems: SENTHIL FERRELL MD Apr 24, 2017 09:06
[2017-04-24] MEDS: CINACALCET 30 MG TAB PO SCH (09:12)
[2017-04-24] MEDS: L ACIDOPHIL/B LACTIS/B LONGUM CAPSULE PO SCH (09:12)
[2017-04-24] MEDS: ASPIRIN 81 MG TAB PO SCH (09:12)
[2017-04-24] MEDS: CLOPIDOGREL 75 MG TAB PO SCH (09:12)
[2017-04-24] MEDS: LOSARTAN 25 MG TAB PO SCH (09:13)
[2017-04-24] MEDS: AMLODIPINE 5 MG TAB PO SCH (09:13)
[2017-04-24] MEDS: BALSAM PERU/CASTOR OIL 60 GM TUBE TOP SCH (09:15)
--- NOTE | 2017-04-24 12:45 | CONS ---
Date/Time of Note Date/Time of Note DATE: 04/24/17 TIME: 12:39 Assessment/Plan Assessment/Plan Additional Assessment/Plan 61 yo male with 1)Abd Pain and Diarrhea, C. difficile colitis 2)Elevated troponin, CAD 3)End-stage renal disease hemodialysis dependent 4)Hyperkalemia 5)Left foot gangrenous wounds 6)Severe peripheral vascular disease with severe infrapopliteal disease and pedal disease. 7)Hypertension. 8)CAD 9)Permanent Pacemaker. 10)Legally blind 11)Anemia of chronic disease HD MWF Cont to monitor Electrolytes, Volume status Cont current Rx and plan Pt agreeable to SNF today RN and SW at bedside Consultation Date/Type/Reason Admit Date/Time Apr 08, 2017 at 21:31 Initial Consult Date 04/10/17 Type of Consultation: Renal Referring Provider: POLY THRASHER MD 24 HR Interval Summary Free Text/Dictation Pt refused to go to SNF yesterday. Had HD yesterday. Constitutional: No requiring O2 Exam/Review of Systems Vital Signs Vitals Vital Signs Date Time Temp Pulse Resp B/P Pulse Ox O2 Delivery O2 Flow Rate FiO2 04/24/17 07:57 97.9 70 18 147/67 97 Intake and Output 04/23/17 04/23/17 04/24/17 15:00 23:00 07:00 Intake Total 240 ml 1340 ml 120 ml Output Total 3500 ml Balance 240 ml -2160 ml 120 ml Exam Constitutional: No distress Eyes: EOMI Neck: No jvd Respiratory: No labored breathing Cardiovascular: No edema Neurological: nl mental status, No lethargic Results Result Diagram: 04/22/17 0607 04/23/17 0535 Medications Medications Current Medications Ondansetron HCl (Zofran Inj) 4 mg Q6H PRN IV NAUSEA AND/OR VOMITING; Start 04/08/17 at 23:30 Acetaminophen (Tylenol Tab) 650 mg Q4H PRN PO PAIN AND OR ELEVATED TEMP; Start 04/08/17 at 23:30 Acetaminophen/ Hydrocodone Bitart ([place] (5/325)) 1 tab Q4H PRN PO PAIN LEVEL 4 -6 Last administered on 04/21/17t 03:51; Admin Dose 1 TAB; Start 04/08/17 at 23 :30 Amlodipine Besylate (Norvasc) 5 mg BID PO Last administered on 04/24/17 09:13 ; Admin Dose 5 MG; Start 04/09/17 at 09:00 Atorvastatin Calcium (Lipitor) 40 mg HS PO Last administered on 04/23/17 21: 02; Admin Dose 40 MG; Start 04/09/17 at 21:00 Cinacalcet (Sensipar) 30 mg BID PO Last administered on 04/24/17 09:12; Admin Dose 30 MG; Start 04/09/17 at 09:00 Clopidogrel Bisulfate (plaVIX) 75 mg DAILY PO Last administered on 04/24/17 09:12; Admin Dose 75 MG; Start 04/09/17 at 09:00 Diphenhydramine HCl (Benadryl) 25 mg Q6H PRN PO ITCHING Last administered on 18:08; Admin Dose 25 MG; Start 04/08/17 at 23:30 Carvedilol (Coreg) 3.125 mg BID PO Last administered on 04/24/17 09:13; Admin Dose 3.125 MG; Start 04/09/17 at 09:00 Aspirin (Aspirin) 81 mg DAILY PO Last administered on 04/24/17 09:12; Admin Dose 81 MG; Start 04/11/17 at 09:00 Morphine Sulfate (morphine) 2 mg Q4H PRN IV SEVERE PAIN LEVEL 7-10 Last administered on 04/24/17 08:02; Admin Dose 2 MG; Start 04/10/17 at 15:30 Lactobacillus Acidophilus (Florajen3 Capsule) 1 each BID PO Last administered on 04/24/17 09:12; Admin Dose 1 EACH; Start 04/11/17 at 14:30 Losartan Potassium (Cozaar) 25 mg BID PO Last administered on 04/24/17 09:13 ; Admin Dose 25 MG; Start 04/16/17 at 09:30 Al Hydrox/Mg Hydrox/Simethicone (Mag-Al Plus) 30 ml Q6H PRN PO GASTROINTESTINAL UPSET Last administered on 04/18/17 18:11; Admin Dose 30 ML; Start 04/18/17 at 16:00 Epoetin Jorge Luis (Epogen (Esrd)) 4,000 units MoWeFr@17 SC Last administered on 17:39; Admin Dose 4,000 UNITS; Start 04/18/17 at 18:50 Hydralazine HCl (Apresoline) 25 mg Q6 PRN PO SBP >160; Start 04/23/17 at 18:30 PIPER FELIX MD Apr 24, 2017 12:45
[2017-04-24 13:21] VITALS: BP 143/67
--- NOTE | 2017-04-24 13:39 | CONS ---
Date/Time of Note Date/Time of Note DATE: 04/24/17 TIME: 13:38 Assessment/Plan Assessment/Plan Chief Complaint/Hosp Course SUBJECTIVE: No acute events, awake, looks comfortable, no fevers no diarrhea MICROBIOLOGY: Blood cultures negative. INDWELLINGS: The patient has AV fistula. ANTIMICROBIALS: Vancomycin PO, Flagyl PHYSICAL EXAMINATION: GENERAL: This is a chronically ill-appearing, fragile, elderly man who is awake , in no distress. HEENT: Head atraumatic, normocephalic. Sclerae anicteric. Buccal mucosa dry. NECK: Supple. CHEST: Rise symmetrical. Breath sounds diminished to bases. HEART: S1, S2. ABDOMEN: Soft, bowel tones present. EXTREMITIES: Left foot gangrene. ASSESSMENT: 1. Systemic inflammatory response syndrome. 2. Clostridium difficile colitis==> resolved. 3. 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 4. End-stage renal disease. 5. Anemia. 6. Severe peripheral arterial and vascular disease. 7. History of permanent pacemaker placement. PLAN: Remains unchanged, completed abx for C dif, continue present care, pain management, hemodialysis per renal DW staff Problems: Consultation Date/Type/Reason Admit Date/Time Apr 08, 2017 at 21:31 Initial Consult Date 04/10/17 Type of Consultation: id Referring Provider: POLY THRASHER MD Exam/Review of Systems Vital Signs Vitals Vital Signs Date Time Temp Pulse Resp B/P Pulse Ox O2 Delivery O2 Flow Rate FiO2 04/24/17 13:21 70 143/67 99 04/24/17 07:57 97.9 18 Intake and Output 04/23/17 04/23/17 04/24/17 15:00 23:00 07:00 Intake Total 240 ml 1340 ml 120 ml Output Total 3500 ml Balance 240 ml -2160 ml 120 ml Results Result Diagram: 04/22/17 0607 04/23/17 0535 Medications Medications Current Medications Ondansetron HCl (Zofran Inj) 4 mg Q6H PRN IV NAUSEA AND/OR VOMITING; Start 04/08/17 at 23:30 Acetaminophen (Tylenol Tab) 650 mg Q4H PRN PO PAIN AND OR ELEVATED TEMP; Start 04/08/17 at 23:30 Acetaminophen/ Hydrocodone Bitart ([place] (5/325)) 1 tab Q4H PRN PO PAIN LEVEL 4 -6 Last administered on 04/21/17 03:51; Admin Dose 1 TAB; Start 04/08/17 at 23 :30 Amlodipine Besylate (Norvasc) 5 mg BID PO Last administered on 04/24/17 09:13 ; Admin Dose 5 MG; Start 04/09/17 at 09:00 Atorvastatin Calcium (Lipitor) 40 mg HS PO Last administered on 04/23/17 21: 02; Admin Dose 40 MG; Start 04/09/17 at 21:00 Cinacalcet (Sensipar) 30 mg BID PO Last administered on 04/24/17 09:12; Admin Dose 30 MG; Start 04/09/17 at 09:00 Clopidogrel Bisulfate (plaVIX) 75 mg DAILY PO Last administered on 04/24/17 09:12; Admin Dose 75 MG; Start 04/09/17 at 09:00 Diphenhydramine HCl (Benadryl) 25 mg Q6H PRN PO ITCHING Last administered on 18:08; Admin Dose 25 MG; Start 04/08/17 at 23:30 Carvedilol (Coreg) 3.125 mg BID PO Last administered on 04/24/17 09:13; Admin Dose 3.125 MG; Start 04/09/17 at 09:00 Aspirin (Aspirin) 81 mg DAILY PO Last administered on 04/24/17 09:12; Admin Dose 81 MG; Start 04/11/17 at 09:00 Morphine Sulfate (morphine) 2 mg Q4H PRN IV SEVERE PAIN LEVEL 7-10 Last administered on 04/24/17 08:02; Admin Dose 2 MG; Start 04/10/17 at 15:30 Lactobacillus Acidophilus (Florajen3 Capsule) 1 each BID PO Last administered on 04/24/17 09:12; Admin Dose 1 EACH; Start 04/11/17 at 14:30 Losartan Potassium (Cozaar) 25 mg BID PO Last administered on 04/24/17 09:13 ; Admin Dose 25 MG; Start 04/16/17 at 09:30 Al Hydrox/Mg Hydrox/Simethicone (Mag-Al Plus) 30 ml Q6H PRN PO GASTROINTESTINAL UPSET Last administered on 04/18/17 18:11; Admin Dose 30 ML; Start 04/18/17 at 16:00 Epoetin Jorge Luis (Epogen (Esrd)) 4,000 units MoWeFr@17 SC Last administered on t 17:39; Admin Dose 4,000 UNITS; Start 04/18/17 at 18:50 Hydralazine HCl (Apresoline) 25 mg Q6 PRN PO SBP >160; Start 04/23/17 at 18:30 SHITAL MCKEON NP Apr 24, 2017 13:39
--- NOTE | 2017-04-24 17:58 | DS ---
Date/Time of Note Date/Time of Note DATE: 04/24/17 TIME: 17:57 Discharge Summary Admission/Discharge Info Admit Date/Time Apr 08, 2017 at 21:31 Discharge Date/Time Apr 24, 2017 at 14:49 Discharge Diagnosis -C. difficile colitis, resolved Dr. Tobias is following in infection disease consultation. -Non-ST [place], continue aspirin. allowing in cardiology consultation. -End-stage renal disease hemodialysis dependent. Dr. Wallace is following in nephrology consultation. Continue hemodialysis. - Possible PNA, continue abx. - Left foot gangrenous wounds - Severe peripheral vascular disease with severe infrapopliteal disease and pedal disease. - Hypertension. - CAD - Permanent Pacemaker. - Legally blind - Anemia of chronic disease. Further recommendations based on clinical course. Plan of care discussed with Dr. French Patient Condition: Stable Hospital Course The patient is 61-year-old male patient with medical history of hemodialysis dependent end-stage renal disease, hypertension, coronary artery artery disease , severe peripheral vascular disease and bilateral foot dry gangrene, hypertension, blindness. Patient was admitted with c/o chest pain, abdominal pain,diarrhea x 4 days and bilateral lower extremities pain. His HD got missed d /t diarrhea.His chest Xray which revealed possible pneumonia, and pt was started on broad-spectrum antibiotics. . Patient noted to have elevated troponin and hyperkalemia on admission. Patient was admitted for further evaluation and management to telemetry floor. Home Meds Active Scripts Diphenhydramine Hcl* (Benadryl*) 25 Mg Cap, 25 MG PO Q6H Y for ITCHING, #30 CAP Prov:VIV KING 04/04/17 Hydrocodone Bit-Acetaminophen (Hydrocodone Bit-APAP) 5-325MG Tablet, 1 TAB PO Q4H Y for PAIN, #30 TAB Prov:VIV KING 04/04/17 Atorvastatin* (Atorvastatin*) 40 Mg Tablet, 40 MG PO HS for 30 Days, TAB Prov:VIV KING 04/04/17 Clopidogrel Bisulfate (Clopidogrel) 75 Mg Tablet, 75 MG PO DAILY for 30 Days, TAB 2 Refills Prov:VIV KING 04/04/17 Amlodipine Besylate* (Norvasc*) 5 Mg Tablet, 5 MG PO BID for 30 Days, TAB Prov:HARLEYCHENKO,VIV 04/04/17 Calcium Acetate* (Calcium Acetate*) 667 Mg Capsule, 667 MG PO WITH MEALS, #30 CAP Prov:RADCHENKO,VIV 04/04/17 Cinacalcet* (Sensipar*) 30 Mg Tab, 30 MG PO BID for 30 Days, TAB Prov:RADCHENKO,VIV 04/04/17 Sevelamer Hcl* (Renagel*) 800 Mg Tab, 800 MG PO WITH MEALS, #90 Prov:RADCHEN,VIV 04/04/17 Discontinued Scripts Losartan Potassium* (Losartan Potassium*) 25 Mg Tablet, 25 MG PO DAILY for 30 Days, TAB Prov:RADEDGAR,VIV 04/04/17 Follow-up Plan Follow-up with Dr. Álvaro Casas and amputation prevention center, follow-up in hemodialysis center for next hemodialysis. Primary Care Provider Joaquin Newby MD Time spent on discharge: < 30 minutes IHSAN SULLIVAN Apr 24, 2017 17:58
== END 2017-04-24 14:49 | DRG 280 ==
LOC: E/R 20:07 → TEL 21:31 → MS2 04-16 21:28
PROVIDERS: ADMIT Internal Medicine; ATTEND Internal Medicine
PROC: 5A1D70Z Performance of Urinary Filtration, Intermittent, Less than 6 Hours Per Day (ICD-10-PCS; principal; 2017-04-09)
PROC: 30233N1 Transfusion of Nonautologous Red Blood Cells into Peripheral Vein, Percutaneous Approach (ICD-10-PCS; 2017-04-11)
DX: I21.4 Non-ST elevation (NSTEMI) myocardial infarction (principal); N18.6 End stage renal disease; J18.9 Pneumonia, unspecified organism; I96 Gangrene, not elsewhere classified; I13.2 Hypertensive heart and chronic kidney disease with heart failure and with stage 5 chronic kidney disease, or end stage renal disease; B96.7 Clostridium perfringens [C. perfringens] as the cause of diseases classified elsewhere; I70.261 Atherosclerosis of native arteries of extremities with gangrene, right leg; E11.52 Type 2 diabetes mellitus with diabetic peripheral angiopathy with gangrene; R65.10 Systemic inflammatory response syndrome (SIRS) of non-infectious origin without acute organ dysfunction; L03.116 Cellulitis of left lower limb; R19.7 Diarrhea, unspecified; E11.22 Type 2 diabetes mellitus with diabetic chronic kidney disease; H54.8 Legal blindness, as defined in USA; E11.51 Type 2 diabetes mellitus with diabetic peripheral angiopathy without gangrene; E87.5 Hyperkalemia; E11.628 Type 2 diabetes mellitus with other skin complications; E11.42 Type 2 diabetes mellitus with diabetic polyneuropathy; E11.319 Type 2 diabetes mellitus with unspecified diabetic retinopathy without macular edema; E11.43 Type 2 diabetes mellitus with diabetic autonomic (poly)neuropathy; R60.0 Localized edema; D50.0 Iron deficiency anemia secondary to blood loss (chronic); I50.9 Heart failure, unspecified; I25.5 Ischemic cardiomyopathy; I25.10 Atherosclerotic heart disease of native coronary artery without angina pectoris; K31.84 Gastroparesis; N40.0 Benign prostatic hyperplasia without lower urinary tract symptoms; Z87.01 Personal history of pneumonia (recurrent); Z99.2 Dependence on renal dialysis; Z95.0 Presence of cardiac pacemaker
CPT/HCPCS: 36415; 36430; 71010; 74176; 80048; 80053; 82550; 82553; 83605; 83735; 84484; 85025; 85610; 85730; 86140; 86850; 86900; 86901; 86920; 87040; 87045; 87075; 87081; 90935; 93005; 93306; 96374; 96375; J0278; J1170; J1580; J1644; J2270; J2405; J2543; J3370; J7040; J7042; J7050; P9016; Q4081

== ENCOUNTER 2017-05-30 20:23 | Emergency (ER) | END 2017-05-31 00:25 | disposition home or self-care (01) ==

== ENCOUNTER 2017-07-08 18:30 | Inpatient (IN) | END 2017-08-05 19:30 | disposition hospice, inpatient (51) | DRG 871 ==